=== PATIENT | female | born 1970 | race Caucasian/White ===

== ENCOUNTER 2022-11-28 09:17 | Emergency (ER) | payer MEDICAID, SELFPAY ==
[2022-11-28 09:50] VITALS: BP 143/76; PULSE 79; RESP 18; TEMP 36.8; O2SAT 98; BMI 37.9
[2022-11-28 10:03] VITALS: BP 160/74; PULSE 90; RESP 17; TEMP 36.8; O2SAT 96
--- NOTE | 2022-11-28 10:14 | ED_ITS ---
HPI - Female Genitourinary General Chief complaint: Urogenital-Female Stated complaint: Head Neck Vag Pain Time Seen by Provider: 11/28/22 10:03 Source: patient Mode of arrival: ambulatory History of Present Illness HPI Narrative: 52-year-old female the past medical history of cervical radiculopathy presenting to the ED complaining of suprapubic/pelvic pressure x 1 year with associated discomfort after urinating and hematuria. Denies dysuria, vaginal bleeding/discharge, nausea/vomiting, flank pain, fever MD elicited complaint: pelvic pain Related Data Previous Rx's Medication Instructions Recorded phenazopyridine 100 mg tablet 100 mg PO TID PRN pain 6 doses #6 11/28/22 (Pyridium) tabs Allergies Allergy/AdvReac Type Severity Reaction Status Date / Time No Known Allergies Allergy Verified 11/28/22 10:23 Review of Systems Review of Systems: Constitutional: No Fever, No Chills, No Fatigue, No Malaise ENT/Mouth: No Ear Pain, No sore throat, No Rhinorrhea, No Swallowing Difficulty Eyes: No Eye Pain, No Swelling, No Redness, N No Vision Changes Cardiovascular: No Chest Pain, No SOB, No Edema, No Palpitations Respiratory: No Cough, No Sputum, No Dyspnea Gastrointestinal: No Nausea, No Vomiting, No Diarrhea, No Constipation, + Abdominal pain Genitourinary: + Dysuria, No Urinary Frequency, + Hematuria, No Urinary Incontinence/retention, No Flank Pain Musculoskeletal: No joint pain, No Myalgias, No Joint Swelling Skin: No Skin Lesions, No rash Neuro: No Weakness, No Dizziness, No Headache Yes all other systems are reviewed and are negative Constitutional: Constitutional: Reports as per [facility] Past Medical History Attestation statement: The following information was validated with the patient. Social History Social History Advance Directives: No Advance Directives Information Provided: Yes Physical Exam Vital Signs: Vital Signs: Last Vital Signs Temp 98.2 F 11/28/22 10:03 Pulse 90 11/28/22 10:03 Resp 17 11/28/22 10:03 BP 160/74 H 11/28/22 10:03 Pulse Ox 96 11/28/22 10:03 O2 Del Method Room Air 11/28/22 10:03 BMI result Body Mass Index 37.9 Const: General: cooperative, healthy appearing and no acute distress Orientation/consciousness: patient oriented x3 Limitations: no limitations HEENT: Head: Yes normal to inspection and Yes atraumatic Ears: hearing grossly normal bilaterally General nose exam: Normal external nose present Face and sinus: Yes normal facial exam Eyes: General: appearance normal, both eyes and all related structures EOM: EOMs intact bilaterally Neck: Neck: Yes normal visual inspection and Yes no meningeal signs Resp: Effort & Inspection: normal respiratory effort and no respiratory distress Auscultation: clear to auscultation bilaterally Cardio: Rate: regular rate Heart sounds: S1 normal heart sound present and S2 normal heart sound present GI: Inspection: Yes normal to inspection Palpation (GI): Soft to palpation, Tenderness to palpation present (GI) suprapubicly; with no rebound tenderness, no guarding and not rigid : General: Yes no CVA tenderness Back/Spine/Pelvis: Back: no CVA tenderness Skin: Rashes: no rashes Wounds: no wounds Neuro: General: patient oriented x3, tone normal and no meningeal signs Gait exam (Neuro): Normal gait present Extrem: General: Yes normal to inspection Course Course Course Narrative: -1123--mild elevation in AST/ALT. Labs otherwise reassuring. UA negative Results discussed with patient including worrisome signs and symptoms and strict return precautions, and when to return to the emergency department. They verbalized understanding and feel safe for discharge at this time. Medical Decision Making Medical Decision Making [facility] Narrative: 52-year-old female the past medical history of cervical radiculopathy presenting to the ED complaining of suprapubic/pelvic pressure x 1 year with associated discomfort after urinating and hematuria. On exam vital signs stable, NAD, nontoxic appearing, abdomen soft mild suprapubic tenderness, no rebound or guarding, no CVAT. Concern for UTI vs cystitis vs ? Renal stone. Low suspicion for pyelo, appendicitis/diverticulitis or ovarian torsion/PID. Lower suspicion for STI Plan: Labs, UA Please refer to course for remaining clinical decision making, interpretation of labs/imaging results, and discussions with consultants and/or family members. Differential Diagnosis Differential Diagnoses: The differential diagnosis associated with the presentation includes As above Admission/Observation Consideration of admission/observation: Escalation of care including admission/observation considered Lab Data [facility] Lab Attestation statement: I reviewed the patient's lab results. 11/28/22 07:19 11/28/22 10:43 Labs: Lab Results 11/28/22 11/28/22 11/28/22 Range/Units 07:19 10:34 10:43 WBC 7.0 (4.8-10.8) X10*3/uL RBC 4.41 (4.20-5.50) X10*6/uL Hgb 13.5 (12.0-16.0) g/dl Hct 41.9 (37.0-47.0) % MCV 95.0 (80.0-98.0) fL MCH 30.6 (27.0-33.0) pg MCHC 32.2 (31.0-35.0) g/dl RDW 13.5 (11.0-16.0) % Plt Count 202 (160-400) X10*3/uL MPV 11.0 (9.4-12.3) fL Immature Gran % (Auto) 0.4 (0.0-0.4) % Neut % (Auto) 66.2 (45-73) % Lymph % (Auto) 27.0 (20-40) % Knox % (Auto) 5.6 (2-11) % Eos % (Auto) 0.4 (0-4) % Baso % (Auto) 0.4 (0-2) % Lymph # (Auto) 1.9 (1.2-4.9) X10*3/uL Knox # (Auto) 0.4 (0.1-1.2) X10*3/uL Eos # (Auto) 0.0 (0.0-0.4) X10*3/uL Baso # (Auto) 0.0 (0.0-0.2) X10*3/uL Abs Immat Gran (auto) 0.03 (0.00-0.03) X10*3/uL Absolute Neuts (auto) 4.6 (2.0-8.3) x10*3/uL Absolute Nucleated RBC 0.000 (0.0-0.012) X10*3/uL Nucleated RBC % (auto) 0.0 (0.0-0.2) /100WBC Sodium 142 (135-145) mmol/L Potassium 4.0 (3.3-5.1) mmol/L Chloride 108 (96-108) mmol/L Carbon Dioxide 28 (22-29) mmol/L Anion Gap 10 L (12-20) BUN 14 (9-16) mg/dL Creatinine 0.75 (0.5-1.4) mg/dL Estim Creat Clear Calc 104.6 Estimated GFR > 60 Random Glucose 108 (60-115) mg/dL Calcium 8.8 (8.4-10.2) mg/dL Total Bilirubin 0.5 (0.0-1.0) mg/dL Direct Bilirubin 0.1 (0.0-0.5) mg/dL AST 39 H (5-31) U/L ALT 43 H (0-31) U/L Alkaline Phosphatase 86 (39-117) U/L Total Protein 7.4 (6.5-8.0) g/dL Albumin 4.3 (3.5-5.0) g/dL Lipase 12 (8-78) U/L Urine Color Yellow Urine Appearance Clear Urine pH 6.5 (5.0-9.0) Ur Specific [place] 1.025 (1.005-1.025) Urine Protein Trace (Neg-Trace) mg/dL Urine Glucose (UA) Negative (Negative) mg/dL Urine Ketones Negative (Negative) mg/dL Urine Blood Negative (Negative) Urine Nitrite Negative (Negative) Ur Leukocyte Esterase Negative (Negative) Radiology Impression Discussion of test interpretation with radiology: I have reviewed the radiologist's reading. External Record Review External record reviewed: Inpatient record, Office record, Outpatient record, Prior outpatient labs, Prior outpatient radiology, Primary care record and Outside ED record Discharge Plan Discharge Clinical Impression: Suprapubic pain, Cystitis Patient Disposition: Home, Self-Care Instructions: Pelvic Pain (ED) Additional Instructions: Your blood work and urine are unremarkable. Her urine does not have any blood in it. Placed a close follow-up with her PCP If her symptoms persist or worsen, you have fever, inability to urine, back pain, nausea or vomiting return to the ED Delaney an?lisis de florence y orina no tienen nada especial. Mathis orina no tiene florence. Hizo un seguimiento cercano con mahtis PCP Si delaney s?ntomas persisten o empeoran, tiene fiebre, incapacidad para orinar, dolor de espalda, n?useas o v?mitos, regrese al servicio de urgencias. Prescriptions: New phenazopyridine [Pyridium] 100 mg tablet 100 mg PO TID PRN (Reason: pain) Qty: 6 0RF Referrals: [facility] [Provider Group] Wendy Martell MD [Primary Care Provider] - 5 days Interventions: ED Discharge Assessment Last Done: 11/28/22 11:33 Discharge Date/Time: 11/28/22 11:33 Print Language: Estonian
[2022-11-28 10:52] LABS: Appearance Urine Clear; Color Urine Yellow; Glucose Urine UA Negative (Negative); Leukocyte Esterase Urine Negative (Negative); Nitrite Urine Negative (Negative); PH 6.5 (5.0-9.0); Specific Gravity - Urine 1.025 (1.005-1.025); Urine Blood Negative (Negative); Urine Ketones Negative (Negative); Urine Protein Trace mg/dL (Neg-Trace)
[2022-11-28 10:52] LABS: MANUAL DIFF FLAG NO
[2022-11-28 10:55] LABS: Basophils Percent Auto 0.4 % (0-2); Eosinophils Percent Auto 0.4 % (0-4); Hematocrit 41.9 % (37.0-47.0); Hemoglobin 13.5 g/dl (12.0-16.0); Imm Gran Abs Auto 0.03 X10*3/uL (0.00-0.03); Imm Gran Pct Auto 0.4 % (0.0-0.4); Lymphocytes Absolute Auto 1.9 X10*3/uL (1.2-4.9); Mean Corpuscular HGB Conc 32.2 g/dl (31.0-35.0); Mean Corpuscular Hemoglobin 30.6 pg (27.0-33.0); Monocytes Absolute Auto 0.4 X10*3/uL (0.1-1.2); Monocytes Percent Auto 5.6 % (2-11); Neutrophils Absolute Auto 4.6 x10*3/uL (2.0-8.3); Neutrophils Percent Auto 66.2 % (45-73); Platelet Count 202 X10*3/uL (160-400); Red Blood Count 4.41 X10*6/uL (4.20-5.50); Red Cell Distribution Width 13.5 % (11.0-16.0)
[2022-11-28 11:09] LABS: Alanine Aminotransferase 43 U/L (0-31); Albumin Level 4.3 g/dL (3.5-5.0); Alkaline Phosphatase 86 U/L (39-117); Anion Gap 10 (12-20); Aspartate Amino Transferase 39 U/L (5-31); Bilirubin Direct 0.1 mg/dL (0.0-0.5); Bilirubin Total 0.5 mg/dL (0.0-1.0); Blood Urea Nitrogen 14 mg/dL (9-16); Calcium 8.8 mg/dL (8.4-10.2); Carbon Dioxide 28 mmol/L (22-29); Chloride 108 mmol/L (96-108); Creatinine Clr Calc Pharmacy 104.6; Estimated Glomerular Filt Rate > 60; Glucose Random 108 mg/dL (60-115); Lipase 12 U/L (8-78); Sodium 142 mmol/L (135-145); Total Protein 7.4 g/dL (6.5-8.0)
== END 2022-11-28 11:33 | disposition home or self-care (01) ==
PROVIDERS: Physician Assistant; Emergency Provider Emergency Medicine; PCP Internal Medicine
DX: R10.2 Pelvic and perineal pain (principal); N30.90 Cystitis, unspecified without hematuria
CPT/HCPCS: 36415; 80048; 80076; 81003; 83690; 85025; 99283

== ENCOUNTER 2022-12-21 10:52 | Outpatient (REF) | payer MEDICAID, SELFPAY ==
--- NOTE | ~2022-12-21 | XR_ITS ---
EXAMINATION: XR KNEE, LEFT CLINICAL INFORMATION: An COMPARISON: None available. TECHNIQUE: Four views of the left knee. FINDINGS: Bone alignment is normal. No fracture or dislocation. Arthritis at the medial femoral tibial and patellofemoral joints with joint space narrowing and osteophyte formation. Osteophyte at the quadriceps tendon insertion to the patella. No joint effusion. XR/XR knee LT 4V IMPRESSION: Degenerative changes.
--- NOTE | ~2022-12-21 | US_ITS ---
EXAMINATION: US PELVIS CLINICAL INFORMATION: Postmenopausal bleeding 52-year-old postmenopausal patient. COMPARISON: None available. TECHNIQUE: Ultrasound of the pelvis is performed using both transabdominal and transvaginal transducers along with Doppler. Transvaginal imaging is performed due to inadequate visualization transabdominally. FINDINGS: Uterus: The uterus is anteverted and measures 13.0 x 3.2 x 4.8 cm. The double wall endometrial thickness is 0.5 mm. The uterus is smooth in contour and has normal myometrial echogenicity. No visible fibroid. Adnexa: Bilateral ovaries are not visualized no large adnexal mass. US/US pelvic and transvaginal IMPRESSION: Mildly thickened endometrium in a postmenopausal patient. Consider further evaluation with tissue sampling.
--- NOTE | ~2022-12-21 | XR_ITS ---
EXAMINATION: XR FOOT, LEFT CLINICAL INFORMATION: Pain COMPARISON: None available. TECHNIQUE: AP, lateral, and oblique views of the left foot. FINDINGS: Calcaneal spurs. The bones and soft tissues are otherwise normal. No fracture. Alignment is anatomic. Joint spaces are maintained. XR/XR foot LT min 3V IMPRESSION: Calcaneal spurs.
== END 2022-12-21 10:53 | disposition home or self-care (01) ==
LOC: HO.US 10:52
PROVIDERS: PCP Internal Medicine; Visit Provider Advanced Practice Midwife
DX: M25.562 Pain in left knee (principal); M79.672 Pain in left foot; R10.2 Pelvic and perineal pain; N95.0 Postmenopausal bleeding
CPT/HCPCS: 73564; 73630; 76830; 76856

== ENCOUNTER 2023-01-21 14:17 | Outpatient (REF) | payer MEDICAID, SELFPAY ==
--- NOTE | ~2023-01-21 | MM_ITS ---
EXAMINATION: MM SCREENING DIGITAL BREAST TOMOSYNTHESIS, BILATERAL CLINICAL INFORMATION: Screening. Asymptomatic. Prior outside mammography from [place] no longer available. Age 52. No known family history breast cancer. The lifetime risk of breast cancer based on the Tyrer-Cuzick Model is 6%. COMPARISON: None (current study represents new baseline exam). TECHNIQUE: Digital breast tomosynthesis is performed in both the craniocaudal and mediolateral oblique views along with computer-aided detection (CAD). Synthesized 2D images are generated from the tomosynthesis. FINDINGS: There are scattered areas of fibroglandular density (ACR BI-RADS breast composition Category b). There are no significant masses, abnormal calcifications, or other abnormalities. No architectural abnormality. The axilla and skin contours are unremarkable. MM/MM tomosynthesis screening BI IMPRESSION: No mammographic evidence of malignancy. ASSESSMENT: BI-RADS 1: Negative RECOMMENDATION: Routine annual mammography screening. This patient's information was entered into a reminder system with a target due date for their next mammogram.
== END 2023-01-21 14:18 | disposition home or self-care (01) ==
LOC: HO.MAMMO 14:17
PROVIDERS: PCP Internal Medicine; Visit Provider Advanced Practice Midwife
DX: Z12.31 Encounter for screening mammogram for malignant neoplasm of breast (principal)
CPT/HCPCS: 77063; 77067

== ENCOUNTER 2023-01-31 11:01 | Outpatient (REF) | payer MEDICAID, SELFPAY | END 2023-01-31 11:02 | disposition home or self-care (01) | LOC: HO.LNP 11:01 | PROVIDERS: PCP Internal Medicine; Visit Provider Obstetrics & Gynecology | DX: R87.612 Low grade squamous intraepithelial lesion on cytologic smear of cervix (LGSIL) (principal); N95.0 Postmenopausal bleeding | CPT/HCPCS: 57454; 58100; 81025; 88305; 99212 ==

== ENCOUNTER 2023-02-21 12:41 | Outpatient (REF) | payer MEDICAID, SELFPAY ==
--- NOTE | ~2023-02-21 | US_ITS ---
EXAMINATION: US PELVIS CLINICAL INFORMATION: Postmenopausal bleeding. COMPARISON: 12/21/2022 TECHNIQUE: Ultrasound of the pelvis is performed using both transabdominal and transvaginal transducers along with Doppler. Transvaginal imaging is performed due to inadequate visualization transabdominally. FINDINGS: Uterus: The uterus is retroverted and measures 11.2 x 3.5 x 5.1 cm. No visible fibroid. The double wall endometrial thickness is 6 mm. Adnexa: Neither ovary was visualized. There is no pelvic ascites or fluid collection. US/US pelvic and transvaginal IMPRESSION: Thickened endometrium given patient's postmenopausal status. Advise consultation with gynecology.
== END 2023-02-21 12:42 | disposition home or self-care (01) ==
LOC: HO.US 12:41
PROVIDERS: PCP Internal Medicine; Visit Provider Obstetrics & Gynecology
DX: N95.0 Postmenopausal bleeding (principal)
CPT/HCPCS: 76830; 76856

== ENCOUNTER 2023-03-07 14:53 | Outpatient (AMB) | payer MEDICAID, SELFPAY ==
[2023-03-07 14:57] VITALS: BP 122/82; BMI 38.1
--- NOTE | 2023-03-07 14:57 | A.OFFVIS_ITS ---
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 Ultrasound showed the following: Uterus: The uterus is retroverted and measures 11.2 x 3.5 x 5.1 cm.? No visible fibroid. The double wall endometrial thickness is 6 mm.? Adnexa: Neither ovary was visualized.? There is no pelvic ascites or fluid collection. The pathology showed the follow-up: A.? Endocervix, curettage:? Squamous mucosa with few atypical cells suspicious for low-grade squamous intraepithelial lesion (mild dysplasia, SHADE 1); no endocervical glandular component present.? B. Endometrium, biopsy:? Predominantly benign endocervical glandular mucosa and squamous mucosa (negative for dysplasia) with scant strips of benign inactive endometrium; no atypia or carcinoma. [facility] Surgical History Hx of section Hx of tubal ligation Female Reproductive History Menstrual Age of Menarche: 12 Review of Systems Const All systems reviewed & are unremarkable except as noted in HPI and below Reports as per HPI and Reports no additional complaints GI Reports no additional complaints Reports no additional complaints Physical Exam Vital Signs: Last Vital Signs BP 122/82 03/07/23 14:57 BMI result Body Mass Index 38.1 Assessment & Plan Assessment & Plan (1) Postmenopausal bleeding: Code(s): N95.0 - Postmenopausal bleeding Plan: Discussed with the patient the results of the endometrial biopsy showing scant strips of inactive endometrium. Discussed with the patient the sensitivity, specificity, positive and negative predictive value, of endometrial biopsy in detecting endometrial pathology including but not limited to endometrial hyperplasia, cancer and other pathology; in addition discussed the patient the tissues are scan and this might lower the sensitivity and negative predictive value in detecting endometrial pathology including carcinoma, offer the patient repeat EMB versus hysteroscopy D&C possible polypectomy, all pros and cons risks benefits were discussed with the patient, the patient decided to think about it and get back to us instructed the patient to call in case is vaginal bleeding bleeding recurs, the next step will be to proceed with a diagnostic hysteroscopy/D&C for further endometrial sampling evaluation to rule out endometrial pathology. All questions answered and the patient verbalized underst anding and agreed with the plan. 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 Discussed with the patient the sensitivity specificity, positive and negative predictive value in detecting cervical cancer in addition discussed the regression, persistence and progression rates. Recommended co-testing in 12 months, if cytology and or HPV are abnormal will proceed was colposcopy biopsy and endocervical curettage, if lesions gets worse or stays persistent for 2 years will proceed with loop electric excision procedure. Instructions given to the patient to schedule a co test appointment in 1 year. All questions answered the patient verbalized understanding. Coding Level of Care Code Est Pt Level 3 (34964) Diagnoses Postmenopausal bleeding N95.0 LGSIL on Pap smear of cervix R87.612
== END 2023-03-07 15:13 | disposition home or self-care (01) ==
LOC: HO.HWS 14:53
PROVIDERS: PCP Internal Medicine; Visit Provider Obstetrics & Gynecology
DX: N95.0 Postmenopausal bleeding (principal); R87.612 Low grade squamous intraepithelial lesion on cytologic smear of cervix (LGSIL)
CPT/HCPCS: 99213

== ENCOUNTER → 2023-03-07 14:53 | Outpatient (BNVA) | payer MEDICAID, SELFPAY | PROVIDERS: PCP Internal Medicine; Visit Provider Obstetrics & Gynecology | DX: N95.0 Postmenopausal bleeding (principal); R87.612 Low grade squamous intraepithelial lesion on cytologic smear of cervix (LGSIL) | CPT/HCPCS: 99212 ==

== ENCOUNTER 2023-11-04 07:53 | Emergency (ER) | payer MEDICAID, SELFPAY ==
--- NOTE | ~2023-11-04 | XR_ITS ---
EXAMINATION: XR KNEE, LEFT CLINICAL INFORMATION: Left knee pain COMPARISON: Left knee 12/21/2022 TECHNIQUE: Two views of the left knee. FINDINGS: Again seen are tricompartmental degenerative changes most marked in the medial and patellofemoral compartments with narrowing. Some tibial plateau osteophytes are present both medially and laterally. No joint effusion or fracture is seen. XR/XR knee LT 2V IMPRESSION: Tricompartmental degenerative changes most marked in the medial compartment.
[2023-11-04 08:30] VITALS: BP 174/90; PULSE 85; RESP 16; TEMP 36.6; O2SAT 95; BMI 39.4
--- NOTE | 2023-11-04 08:58 | PC.NURSE ---
moved into [facility] [place] [facility] [place] . walks well to room w/o distress.
--- NOTE | 2023-11-04 10:03 | ED.GENADULT ---
HPI - General Adult General Chief complaint: General Medical Stated complaint: head body neck pain Time Seen by Provider: 11/04/23 09:34 Source: patient Mode of arrival: ambulatory Limitations: no limitations History of Present Illness HPI narrative: This is a 53-year-old female history of obesity, chronic pelvic pain presenting to the emergency department with complaints of neck pain that is worse on the left side, muscle tightness in her upper back, diffuse headache for the past 2 weeks. Patient reports that she has however had a headache intermittently for the past 3 years and also reported to triage some pelvic discomfort she reports this has been going on for 2 years she was followed by OBGYN she had biopsies done which were unremarkable, this is a chronic complaint that is currently being followed the main reason for visit today is the neck pain. Also reporting some left knee pain status post fall a few weeks ago. She reports she fell onto her left knee. No head strike or loss of consciousness. She states since the fall she has been having some knee swelling. She has been able to walk after the fall. No numbness, tingling, fevers, chills, chest pain, shortness of breath, nausea, vomiting, vision changes, changes in bowel habitsm numbness, tinglign, dizziness or weakness. NIH stroke scale 0 Related Data Home Medications Medication Instructions Recorded Confirmed gabapentin 100 mg capsule 300 mg PO Q8H 01/31/23 sulfamethoxazole 200 5 ml PO DAILY 01/31/23 mg-trimethoprim 40 mg/5 mL oral suspension Previous Rx's Medication Instructions Recorded phenazopyridine 100 mg tablet 100 mg PO TID PRN pain 6 doses #6 11/28/22 (Pyridium) tabs cyclobenzaprine 10 mg tablet 10 mg PO BEDTIME PRN muscle spasm 11/04/23 #7 tabs ketorolac 10 mg tablet 10 mg PO TID PRN pain 5 days #15 11/04/23 tabs Allergies Allergy/AdvReac Type Severity Reaction Status Date / Time No Known Allergies Allergy Verified 11/04/23 08:29 Review of Systems Review of Systems: Yes all other systems are reviewed and are negative [facility] Past Medical History Attestation statement: The following information was validated with the patient. Source: old records reviewed and nursing notes reviewed Surgical History Hx of tubal ligation Hx of section Social History Social History Advance Directives: No Advance Directives Information Provided: No Physical Exam ED Vital Signs: Vital Signs - 24 hr 11/04/23 08:30 Temperature 97.8 F Pulse Rate 85 Respiratory Rate 16 Blood Pressure 174/90 H Pulse Oximetry 95 Oxygen Delivery Method Room Air BMI result Body Mass Index 39.4 vss Appearance: Alert.? Oriented X3.? No acute distress.? Head: Normocephalic, atraumatic, no step-offs or deformities Eyes: Pupils equal, round and reactive to light.? Neck: Normal inspection.? Neck supple.? + b/l cervical paraspnious muscle spasms. and b/l trapezius TTP. No deformities. CVS: Normal heart rate and rhythm.? Pulses normal.? Respiratory: No respiratory distress.? Breath sounds normal.? Abdomen: Soft and nontender.? Skin: Skin warm and dry.? Normal skin color.? Normal skin turgor.? Extremities: No lower extremity edema.? No calf ttp/ negative homa b/l. 5/5 strength to bilateral upper and lower extremities. Full rom to b/l knees, normal sensation distally, capillary refill < 2 seconds to b/l LE. Ambulatoryw/ steady gait. 2+ popliteal, dp, at, pt pulses equal and b/l. Back: No midline tenderness, no C-spine tenderness, full range of motion, no CVA tenderness bilaterally Neuro: Oriented X 3.? No motor deficit.? No sensory deficit. CN 2-12 intact Course Reevaluation(s) Reevaluation #1: X-ray showing signs of arthritis. No acute fracture dislocations. Patient feeling better. Patient to be discharged home with same. Educated patient on diagnosis and treatment plan, answered all question, patient verbalizes understanding. At this time patient will be discharged home, advised to return with new or worsening symptoms. Educated on worrisome signs and symptoms and when to return. At this time I feel comfortable discharge home. Time: 11:16 Medications Administered Discontinued Medications Generic Name Dose Route Start Last Admin Trade Name Freq PRN Reason Stop Dose Admin Ketorolac Tromethamine 30 mg 11/04/23 09:45 11/04/23 10:46 Ketorolac Tromethamine 30 Mg/Ml Vial IM 11/04/23 09:46 30 mg ONCE ONE Administration Lidocaine 1 patch 11/04/23 10:18 11/04/23 10:46 Lidocaine 4 % Patch Adh..Patch TRANSDERMA 11/04/23 10:19 1 patch ONCE ONE Administration Protocol Medical Decision Making Medical Decision Making [facility] Narrative: 1006 53 year old female PE + b/l cervical paraspnious muscle spasms. and b/l trapezius TTP. No deformities. No lower extremity edema.? No calf ttp/ negative homa b/l. 5/5 strength to bilateral upper and lower extremities. Full rom to b/l knees, normal sensation distally, capillary refill < 2 seconds to b/l LE. Ambulatoryw/ steady gait. 2+ popliteal, dp, at, pt pulses equal and b/l. Concerns for contusion of left knee. Unlikely arterial or venous occlusion. Unlikely fracture dislocation. No signs of neurovascular compromise or threat to limb. Neck pain concerning for musculoskeletal pain. I do not suspect meningitis, encephalitis, cervical myelopathy, cord compression, fracture, dislocation or traumatic subluxation. Unlikely intracranial hemorrhage, stroke posterior stroke. No abdominal pain on palpation unlikely intra-abdominal etiology or pelvic problem. Will rule out UTI. Plan- labs, will medicated w/ Toradol, Lidoderm. , UA Differential Diagnosis Differential Diagnoses: The differential diagnosis associated with the presentation includes Concerns for contusion of left knee. Unlikely arterial or venous occlusion. Unlikely fracture dislocation. No signs of neurovascular compromise or threat to limb. Neck pain concerning for musculoskeletal pain. I do not suspect meningitis, encephalitis, cervical myelopathy, cord compression, fracture, dislocation or traumatic subluxation. Unlikely intracranial hemorrhage, stroke posterior stroke. No abdominal pain on palpation unlikely intra-abdominal etiology or pelvic problem. Will rule out UTI. Admission/Observation Consideration of admission/observation: Escalation of care including admission/observation considered Unlikely Lab Data [facility] Lab Attestation statement: I reviewed the patient's lab results. Labs: Lab Results 11/04/23 Range/Units 10:51 Urine Color Yellow Urine Appearance Clear Urine pH 5.5 (5.0-9.0) Ur Specific [place] 1.025 (1.005-1.025) Urine Protein Negative (Neg-Trace) mg/dL Urine Glucose (UA) Negative (Negative) mg/dL Urine Ketones Trace (Negative) mg/dL Urine Blood Negative (Negative) Urine Nitrite Negative (Negative) Ur Leukocyte Esterase Negative (Negative) Independent Interpretation I performed an independent interpretation of an: Plain X-Ray Radiology Impression Discussion of test interpretation with radiology: I have reviewed the radiologist's reading. External Record Review External record reviewed: Inpatient record, Office record, Outpatient record, Prior outpatient labs, Prior outpatient radiology, Primary care record and Outside ED record Chronic Conditions Patient?s care impacted by: Other Critical Care Time Critical Care Time Critical Care Time: No Discharge Plan Discharge Clinical Impression: Cervical paraspinous muscle spasm, Arthritis of knee Patient Disposition: Home, Self-Care Instructions: Muscle Spasm (ED) Additional Instructions: Take your medications as prescribed. If you were prescribed antibiotics today, it is important that you take your medication to their entirety, do not skip any doses, do not finish them early. Follow-up with your primary care provider this week. Return to the emergency department with new or worsening symptoms. Such as fevers, chills, chest pain, shortness of breath, nausea, vomiting, dizziness, headache, vision changes, lethargy In case of emergency call 911 Toradol has been sent to your pharmacy, you tolerated this well in the department. Please take this as prescribed do not take this with ibuprofen, or other NSAIDs, do not mix this with alcohol. Side effects of this medication including increased risk for bleeding and possible kidney injury. Cyclobenzaprine is a muscle relaxer it is strong and can make you drowsy. Do not take with sedatives or any other muscle relaxers or alcohol. Do not drive or operate machinery while taking this. Do not share this medication with anyone. XR/XR knee LT 2V IMPRESSION: Tricompartmental degenerative changes most marked in the medial compartment. Prescriptions: New cyclobenzaprine 10 mg tablet 10 mg PO BEDTIME PRN (Reason: muscle spasm) Qty: 7 0RF ketorolac 10 mg tablet 10 mg PO TID PRN (Reason: pain) 5 Days Qty: 15 0RF No Action phenazopyridine [Pyridium] 100 mg tablet 100 mg PO TID PRN (Reason: pain) Qty: 6 0RF sulfamethoxazole-trimethoprim 200-40 mg/5 mL suspension 5 ml PO DAILY gabapentin 100 mg capsule 300 mg PO Q8H Referrals: Wendy Martell MD [Primary Care Provider] - 2 days Stand Alone Forms: Work/School Release
--- NOTE | 2023-11-04 10:43 | PC.NURSE ---
attempted to pull meds from pyxis- not showing up - called court pharmacist to inquire
[2023-11-04] MEDS: Ketorolac Tromethamine 30 MG/ML VIAL IM (10:46)
[2023-11-04] MEDS: Lidocaine 4 % Patch ADH..PATCH 1 PATCH TRANSDERMA (10:46)
[2023-11-04 11:08] LABS: Appearance Urine Clear; Color Urine Yellow; Glucose Urine UA Negative (Negative); Leukocyte Esterase Urine Negative (Negative); Nitrite Urine Negative (Negative); PH 5.5 (5.0-9.0); Specific Gravity - Urine 1.025 (1.005-1.025); Urine Blood Negative (Negative); Urine Ketones Trace mg/dL (Negative); Urine Protein Negative (Neg-Trace)
== END 2023-11-04 12:20 | disposition home or self-care (01) ==
PROVIDERS: Physician Assistant; Emergency Provider Emergency Medicine; PCP Internal Medicine
DX: M62.830 Muscle spasm of back (principal); M17.12 Unilateral primary osteoarthritis, left knee
CPT/HCPCS: 73560; 81003; 96372; 99283; 99284; J1885

== ENCOUNTER 2023-12-30 11:08 | Outpatient (REF) | payer MEDICAID, SELFPAY ==
[2023-12-30 13:17] LABS: MANUAL DIFF FLAG NO
[2023-12-30 13:55] LABS: Basophils Percent Auto 0.3 % (0-2); Eosinophils Percent Auto 0.6 % (0-4); Hematocrit 45.1 % (37.0-47.0); Hemoglobin 14.1 g/dl (12.0-16.0); Imm Gran Abs Auto 0.02 X10*3/uL (0.00-0.03); Imm Gran Pct Auto 0.3 % (0.0-0.4); Lymphocytes Absolute Auto 2.1 X10*3/uL (1.2-4.9); Lymphocytes Percent Auto 28.6 % (20-40); Mean Corpuscular HGB Conc 31.3 g/dl (31.0-35.0); Mean Corpuscular Hemoglobin 29.7 pg (27.0-33.0); Mean Corpuscular Volume 95.1 fL (80.0-98.0); Mean Platelet Volume 11.7 fL (9.4-12.3); Monocytes Absolute Auto 0.4 X10*3/uL (0.1-1.2); Monocytes Percent Auto 5.4 % (2-11); Neutrophils Absolute Auto 4.6 x10*3/uL (2.0-8.3); Neutrophils Percent Auto 64.8 % (45-73); Platelet Count 192 X10*3/uL (160-400); Red Blood Count 4.74 X10*6/uL (4.20-5.50); Red Cell Distribution Width 13.8 % (11.0-16.0); White Blood Count 7.2 X10*3/uL (4.8-10.8)
[2023-12-30 14:01] LABS: Estimated Average Glucose 117 mg/dL; Hemoglobin A1c % 5.7 % (<6.0)
[2023-12-30 14:05] LABS: Rheumatoid Factor < 13.0 IU/mL (<15.0)
[2023-12-30 14:20] LABS: Alanine Aminotransferase 42 U/L (0-31); Albumin Level 4.3 g/dL (3.5-5.0); Alkaline Phosphatase 78 U/L (39-117); Anion Gap 16 (12-20); Aspartate Amino Transferase 52 U/L (5-31); Bilirubin Total 0.3 mg/dL (0.0-1.0); Blood Urea Nitrogen 18 mg/dL (9-16); C Reactive Protein 1.97 mg/dL (< or = 0.50); Calcium 9.8 mg/dL (8.4-10.2); Carbon Dioxide 25 mmol/L (22-29); Chloride 105 mmol/L (96-108); Estimated Glomerular Filt Rate > 60; Glucose Random 89 mg/dL (60-115); Potassium 5.1 mmol/L (3.3-5.1); Sodium 141 mmol/L (135-145); Total Protein 8.8 g/dL (6.5-8.0)
[2023-12-30 14:25] LABS: TSH reflex Free T4 2.93 uIU/mL (0.32-4.0)
[2023-12-30 14:29] LABS: Erythrocyte Sedimentation Rate 33 MM/HR (0-20)
[2023-12-30 14:33] LABS: Folate 12.5 ng/mL (> or = 4.0); Vitamin B12 641 pg/mL (200-900)
[2024-01-01 15:48] LABS: Cyclic Citrullinated Peptide <16 UNITS
[2024-01-03 20:39] LABS: Anti Nuclear Antibody Screen NEGATIVE (NEGATIVE)
== END 2023-12-30 11:09 | disposition home or self-care (01) ==
LOC: HO.HHCL 11:08
PROVIDERS: Visit Provider Emergency Medicine
DX: E11.65 Type 2 diabetes mellitus with hyperglycemia (principal); M25.50 Pain in unspecified joint; E03.9 Hypothyroidism, unspecified
CPT/HCPCS: 36415; 80053; 82607; 82746; 83036; 84443; 85025; 85652; 86038; 86140; 86200; 86431

== ENCOUNTER 2024-01-08 08:27 | Outpatient (REF) | payer MEDICAID, SELFPAY ==
[2024-01-08 14:57] LABS: Bacterial Vaginosis PCR NEGATIVE (Negative); Candida Group PCR NOT DETECTED (Not Detect); Candida glab krusei PCR NOT DETECTED (Not Detect); Trichomonas vaginalis PCR NOT DETECTED (Not Detect)
[2024-01-08 17:28] LABS: CT PCR NOT DETECTED (Not Detect.); NG PCR NOT DETECTED (Not Detect.)
[2024-01-20 22:48] LABS: HPV mRNA E6/E7 rflx Detected (Not Detected)
[2024-01-20 22:52] LABS: HPV 16 RNA NOT DETECTED (NOT DETECTED)
== END 2024-01-08 08:28 | disposition home or self-care (01) ==
LOC: HO.LNP 08:27
PROVIDERS: PCP Internal Medicine; Visit Provider Obstetrics & Gynecology
DX: Z12.4 Encounter for screening for malignant neoplasm of cervix (principal); Z11.51 Encounter for screening for human papillomavirus (HPV); R10.2 Pelvic and perineal pain; N95.0 Postmenopausal bleeding; R31.29 Other microscopic hematuria
CPT/HCPCS: 0352U; 0353U; 81002; 87086; 87624; 87625; 88142; 99212

== ENCOUNTER 2024-01-08 08:27 | Outpatient (AMB) | payer MEDICAID, SELFPAY ==
[2024-01-08 08:41] VITALS: BMI 39.4
--- NOTE | 2024-01-08 08:41 | A.OFFVIS_ITS ---
Vital Signs 01/08/24 08:41 Height 5 ft 4 in Weight 229 lb 4.492 oz BMI 39.4 Intake Visit Reasons: PMB Allergies No Known Allergies Allergy (Verified 11/04/23 08:29) HPI Comments Details: Presenting complaining of multiple episodes of vaginal bleeding over the last year associated with pelvic pain, no other associated symptoms no urinary or GI symptoms no vaginal discharge, nausea or vomiting or fever or chills. The patient moved to [place] have discussed her vaginal meeting with her PCP and did not contact us nor she was referred to see a local OBGYN in [place] and therefore, the patient decided to come in for further evaluation. The patient was seen for postmenopausal bleeding and LGSIL HPV E6 E7 positive in 02/08 were colposcopy was negative, ECC was done, the pathology showed the following: A. Endocervix, curettage: Squamous mucosa with few atypical cells suspicious for low-grade squamous intraepithelial lesion (mild dysplasia, SHADE 1); no endocervical glandular component present. B. Endometrium, biopsy: Predominantly benign endocervical glandular mucosa and squamous mucosa (negative for dysplasia) with scant strips of benign inactive endometrium; no atypia or carcinoma Pelvic ultrasound was done in 03/10 and showed endometrial thickness of 6 mm In addition, the patient is complaining of bilateral lower pelvic pain associated with vaginal discharge, no other associated urinary GI or other symptoms Last Pap smear LGSIL/E6 E7 positive in 12/09 Last mammogram was BI-RADS 1 in 02/08 [facility] Medical History LGSIL on Pap smear of cervix Surgical History Hx of tubal ligation Hx of section Female Reproductive History Menstrual Age of Menarche: 12 Review of Systems Const All systems reviewed & are unremarkable except as noted in HPI and below Card Reports as per HPI Resp Reports as per HPI GI Reports as per HPI and Reports no additional complaints Reports as per HPI Physical Exam Vital Signs: BMI result Body Mass Index 39.4 Const General: cooperative, healthy appearing and comfortable Chest Chest palpation & inspection: normal inspection of the chest and normal p alpation of entire chest wall Breast/axilla inspection: normal inspection of the breasts and normal inspection of the axillae Breast/axilla palpation: normal palpation of the breasts, normal palpation of the axillae and no axillary lymphadenopathy Resp Effort & Inspection: normal respiratory effort Auscultation: clear to auscultation bilaterally Percussion: percussion normal Cardio Palpation: normal PMI Rate: regular rate Rhythm: regular rhythm Heart sounds: no murmurs and no rubs Peripheral pulses: Peripheral pulses 2+ throughout GI Inspection: Yes normal to inspection Palpation (GI): Soft to palpation, nontender, no guarding, not rigid and No hepatosplenomegaly present Percussion: Yes normal to percussion Auscultation: normal bowel sounds Rectal Exam - Female: deferred General: Yes bladder normal to palpation External Female Exam: No lesion Speculum Exam - Vagina: normal appearance of the vagina, normal palpation, normal vaginal discharge and not erythematous Speculum Exam - Cervix: normal appearance of the cervix and normal palpation Bimanual exam- vagina & uterus: normal bimanual exam, normal palpation, uterine size normal, bladder normal to palpation, consistency normal and normal palpation Bimanual Exam- Adnexa, other: normal adnexae, no masses and no tenderness Assessment & Plan Assessment & Plan (1) Pelvic pain: Code(s): R10.2 - Pelvic and perineal pain Category: Medical Plan: Urine dip showed microscopic hematuria. GC and chlamydia taken and pelvic ultrasound ordered. Discussed with the patient the differential diagnosis of pelvic pain including but not limited to adnexal, uterine masses, pelvic infections (PID), GI the (Irritable bowel syndrome, diverticulitis, others), musculoskeletal, myofascial pain abdominal wall , adhesions, endometriosis, psychological and others causes. Will check results and treat accordingly. All questions answered, the patient verbalized understanding. Instructed the patient to schedule follow-up appointment in 2 weeks (2) Microscopic hematuria: Code(s): R31.29 - Other microscopic hematuria Category: Medical Plan: Urine dip showed microscopic hematuria, urine culture sent. Will repeat urine dip in 2 weeks. Discussed with the patient the possible causes of microscopic hematuria including but not limited to: interstitial cystitis, polyps, stones, masses, urethral inflammatory processes and others. If Urine Culture is negative and repeat urine dip in 2 weeks shows persistent microscopic hematuria, will proceed with CT abdomen/pelvis and urology referral. Instructions given the patient to schedule a 2 week urine dip follow-up appointment. All questions answered and the patient verbalized understanding. (3) LGSIL on Pap smear of cervix: Comment: 12/09 LGSIL HPV E6/E7 positive, colpo negative, ECC negative Code(s): R87.612 - Low grade squamous intraepithelial lesion on cytologic smear of cervix (LGSIL) Category: Medical Plan: Co testing done. Instructions given the patient to schedule a 1 year repeat annual exam appointment. (4) Vaginal discharge: Code(s): N89.8 - Other specified noninflammatory disorders of vagina Category: Medical Plan: GC/CT with BV panel collected. Since the patient does not have any vulvar vaginal itching nor foul odor, will check the results and treat accordingly. (5) Postmenopausal bleeding: Code(s): N95.0 - Postmenopausal bleeding Category: Medical Plan: Discussed with the patient the differential diagnosis of post menopausal bleeding with normal pelvic exam including but not limited to, endometrial hyp erplasia, cancer, polyps and other causes; co testing done, recommended ultrasound and schedule hysteroscopy D&C possible polypectomy/myomectomy. Instructions given the patient to schedule a 2 week preop visit All questions answered, the patient verbalized understanding and agreed with the plan. Orders: Orders US pelvic and transvaginal Today N95.0 - Postmenopausal bleeding, R10.2 - Pelvic and perineal pain Coding Level of Care Code Est Pt Level 3 (68281) Diagnoses Pelvic pain R10.2 Microscopic hematuria R31.29 LGSIL on Pap smear of cervix R87.612 Vaginal discharge N89.8 Postmenopausal bleeding N95.0
== END 2024-01-08 09:24 | disposition home or self-care (01) ==
LOC: HO.HWS 08:27
PROVIDERS: PCP Internal Medicine; Referring Provider Internal Medicine; Visit Provider Obstetrics & Gynecology
DX: R10.2 Pelvic and perineal pain (principal); R31.29 Other microscopic hematuria; R87.612 Low grade squamous intraepithelial lesion on cytologic smear of cervix (LGSIL); N89.8 Other specified noninflammatory disorders of vagina; N95.0 Postmenopausal bleeding
CPT/HCPCS: 99213

== ENCOUNTER 2024-01-15 10:33 | Outpatient (REF) | payer MEDICAID, SELFPAY ==
--- NOTE | ~2024-01-15 | US_ITS ---
EXAMINATION: US PELVIS CLINICAL INFORMATION: Postmenopausal bleeding. COMPARISON: Pelvic ultrasound of 02/21/2023. TECHNIQUE: Ultrasound of the pelvis is performed using both transabdominal and transvaginal transducers along with Doppler. Transvaginal imaging is performed due to inadequate visualization transabdominally. Severely limited visualization due to bowel gas and body habitus. FINDINGS: Uterus is anteverted, retroflexed and measures 11.1 x 4.1 x 4.9 cm. No discrete fibroid appreciated. Double wall endometrial thickness is 7 mm. Bilateral ovaries were not visualized. No significant free fluid. Severely limited visualization due to bowel gas and body habitus. US/US pelvic and transvaginal IMPRESSION: 1. Endometrial thickness 7 mm is abnormal and suspicious in this patient with postmenopausal bleeding. Gynecologic consultation and possible biopsy recommended. 2. Bilateral ovaries were not visualized. 3. Severely limited visualization due to bowel gas and body habitus.
== END 2024-01-15 10:34 | disposition home or self-care (01) ==
LOC: HO.US 10:33
PROVIDERS: PCP Student in an Organized Health Care Education/Training Program; Visit Provider Obstetrics & Gynecology
DX: R10.2 Pelvic and perineal pain (principal); N95.0 Postmenopausal bleeding
CPT/HCPCS: 76830; 76856

== ENCOUNTER 2024-01-20 14:28 | Outpatient (AMB) | payer MEDICAID, SELFPAY ==
--- NOTE | 2024-01-20 14:47 | A.OFFVIS_ITS ---
Vital Signs 01/20/24 14:52 Height 5 ft 4 in Weight 229 lb 4.492 oz BMI 39.4 BP 118/74 Intake Visit Reasons: pre op Cancer Registry Manager Required: Yes Cancer Registry Manager Language: Industrial Machine Assembler Name: Trista CHASE Information Interpreted: non-clinical & clinical Digital Media Director: Digital Media Director Present Accompanied by: Self / Same As Patient Allergies No Known Allergies Allergy (Verified 01/20/24 14:54) Is last menstrual period known: Yes Last menstrual period: 06/16/20 Post menopausal: Yes Patient : No Do you need a note to return to daycare/school/sports/work: Yes (for surgery on saturday) HPI Comments Details: Presenting to discuss hysteroscopy D&C possible polypectomy/myomectomy. Pelvic ultrasound reports is still pending [facility] Medical History LGSIL on Pap smear of cervix Surgical History Hx of tubal ligation Hx of section Female Reproductive History Menstrual Age of Menarche: 12 Date of last menstrual period: 06/16/20 Total pregnancies: 2 Full term: 2 Review of Systems Card Reports as per HPI and Reports no additional complaints Resp Reports as per HPI and Reports no additional complaints GI Reports as per HPI and Reports no additional complaints Reports as per HPI Physical Exam Vital Signs: Last Vital Signs BP 118/74 01/20/24 14:52 BMI result Body Mass Index 39.4 Const General: cooperative, healthy appearing and comfortable Resp Effort & Inspection: normal respiratory effort Auscultation: clear to auscultation bilaterally Percussion: percussion normal Cardio Palpation: normal PMI Rate: regular rate Rhythm: regular rhythm Heart sounds: no murmurs and no rubs Peripheral pulses: Peripheral pulses 2+ throughout GI Inspection: Yes normal to inspection Palpation (GI): Soft to palpation, nontender, no guarding, not rigid and No hepatosplenomegaly present Percussion: Yes normal to percussion Auscultation: normal bowel sounds Rectal Exam - Female: deferred Assessment & Plan Assessment & Plan (1) Postmenopausal bleeding: Code(s): N95.0 - Postmenopausal bleeding Category: Medical Plan: Will schedule hysteroscopy D&C possible polypectomy/myomectomy. Discussed with the patient the procedure , all benefits and risks including but not limited to inability to complete the procedure , insufficient endometrial tissue for a complete evaluation of the endometrial cavity , bleeding, infection, possible need for blood transfusion with all its risk ( HIV,syphilis, Hepatitis, anaphylaxis shock, others..), injury to bladder, rectum, possible need for laparoscopy/laparotomy or hysterectomy. The patient verbalized understanding and signed the consent. Instructions given the patient to stay NPO after midnight the day prior to the procedure and to take only the specific medication (s) discussed the morning of the surgical procedure and to schedule a 2 week postoperative appointment Coding Level of Care Code Est Pt Level 3 (90832) Diagnoses Postmenopausal bleeding N95.0
[2024-01-20 14:52] VITALS: BP 118/74; BMI 39.4
== END 2024-01-20 15:09 | disposition home or self-care (01) ==
LOC: HO.HWS 14:28
PROVIDERS: PCP Student in an Organized Health Care Education/Training Program; Referring Provider Student in an Organized Health Care Education/Training Program; Visit Provider Obstetrics & Gynecology
DX: N95.0 Postmenopausal bleeding (principal)
CPT/HCPCS: 99213

== ENCOUNTER → 2024-01-20 14:28 | Outpatient (BNVA) | payer MEDICAID, SELFPAY | PROVIDERS: PCP Student in an Organized Health Care Education/Training Program; Visit Provider Obstetrics & Gynecology | DX: Z01.818 Encounter for other preprocedural examination (principal); N95.0 Postmenopausal bleeding; Z98.51 Tubal ligation status | CPT/HCPCS: 99212 ==

== ENCOUNTER 2024-01-24 08:18 | Day surgery (SDC) | payer MEDICAID, SELFPAY ==
[2024-01-22 13:50] VITALS: BMI 39.3
[2024-01-24] VITALS (9 sets, daily range): BP systolic 123–142; BP diastolic 70–89; PULSE 73–110; RESP 16–18; TEMP 36.1–37.3; O2SAT 92–97; BMI 38.8
[2024-01-24 08:34] LABS: Glucose, Whole Blood 100 mg/dL (60-115)
--- NOTE | 2024-01-24 08:35 | HO.ANESPROP2 ---
Documented by User: Lyla Shelton NP 01/22/24 13:26 HPI - Anesthesia Eval Consult details Narrative: 53yo F for D&C Hysteroscopy,possible myomectomy [facility] Active Problems Active Problems: All Active Problems Vaginal discharge (Acute) Microscopic hematuria (Acute) Pelvic pain (Acute) Postmenopausal bleeding (Acute) LGSIL on Pap smear of cervix (Acute) Past Medical History Medical History (Updated 01/24/24 @ 08:18 by Yana Clay) HTN (hypertension) Tachycardia Sleep apnea LGSIL on Pap smear of cervix Surgical History Surgical History Hx of tubal ligation Hx of section Social History Social History Advance Directives: No Advance Directives Information Provided: Yes Meds Allergies Allergy/AdvReac Type Severity Reaction Status Date / Time No Known Allergies Allergy Verified 01/24/24 08:13 Home Medications ?Medication ?Instructions ?Recorded ?Confirmed ?Last Taken ?Type gabapentin 100 mg capsule 300 mg PO Q8H 01/31/23 01/24/24 Unknown History losartan 100 mg tablet 100 mg PO DAILY 01/20/24 01/24/24 Unknown History metformin 500 mg tablet 500 mg PO DAILY 01/24/24 01/24/24 01/21/24 History Exam Pertinent Lab Results Pertinent Lab Results: Laboratory Tests 12/30/23 11:11 WBC 7.2 Hgb 14.1 Hct 45.1 Plt Count 192 Sodium 141 Potassium 5.1 Chloride 105 Carbon Dioxide 25 BUN 18 H Creatinine 0.70 Assessment and Plan Assessment Anesthesia Assessment: Chart Reviewed Documented by User: Myesha Regalado DO 01/24/24 08:36 PMFSH Past Medical History Medical History (Updated 01/24/24 @ 08:18 by Yana Caly) HTN (hypertension) Tachycardia Sleep apnea LGSIL on Pap smear of cervix Family History Family history of problems with anesthesia: No Surgical History Surgical History Hx of tubal ligation Hx of section History of Problems with Anesthesia: No Social History Social History Advance Directives: No Advance Directives Information Provided: Yes Meds Allergies Allergy/AdvReac Type Severity Reaction Status Date / Time No Known Allergies Allergy Verified 01/24/24 08:13 Home Medications ?Medication ?Instructions ?Recorded ?Confirmed ?Last Taken ?Type gabapentin 100 mg capsule 300 mg PO Q8H 01/31/23 01/24/24 Unknown History losartan 100 mg tablet 100 mg PO DAILY 01/20/24 01/24/24 Unknown History metformin 500 mg tablet 500 mg PO DAILY 01/24/24 01/24/24 01/21/24 History Exam Exam Date and Time: January 24, 2024 0832 Height,Weight and Vital Signs: Height 5 ft 4 in Weight 103.873 kg Airway Mallampati Class: II TM Dist: >3cm Neck ROM: Full Loose/Missing/Broken Teeth: No (patient denies any loose or broken teeth) Heart: S1S2 Lungs: CTAB Other: piercing on outside of right lower lip - unable go remove Assessment and Plan Assessment Anesthesia Assessment: Anesthesia Plan Discussed and Chart Reviewed Final Anesthetic Review Family History of Problems with Anesthesia: No History of Problems with Anesthesia: No NPO: Yes ASA Class: III Final Preanesthetic Review: No Changes in Pt Med Stat, Meds/Allgs Chart Reviewed, Consent Obtained/Reviewed (neonatal doctor at bedside for translation) and Anes Risks/Benef Reviewed Patient Risk: Intermediate Procedure Risk: Low Anesthetic Plan Anesthetic Plan: GA and Agree w/ Assess. and Plan Disposition: Standard PACU
--- NOTE | 2024-01-24 08:35 | MHC.SHP ---
Pre-Procedural Eval Section A - 24 Hr Update-Section A only Date of Service: 01/24/24 The patient is an INPATIENT: No Changes since office visit: No Cold of Flu in the past 2 weeks, No New Medical Problems, No Changes in Medication and No Patient answered all questions The patient has been examined within 24 hours of the surgical procedure. The History & Physical has been completed within 30 days and I have reviewed it.: Yes Section B - Complete if H&P > 30 days Chief Complaint: Postmenopausal bleeding Allergies: Allergies Allergy/AdvReac Type Severity Reaction Status Date / Time No Known Allergies Allergy Verified 01/24/24 08:13 Plan Diagnosis/Plan: Unchanged I have reviewed the history and physical and performed a pertinent physical examination on my patient. No changes have occurred unless specified. Time Spent With Patient Time: Total time managing care of this patient today ____ minutes.
[2024-01-24 08:44] LABS: UPreg QC Valid YES; Urine Pregnancy NEGATIVE (NEGATIVE)
[2024-01-24] MEDS: Lactated Ringers 1,000 ML 100 ML IVCONT (09:01)
--- NOTE | 2024-01-24 09:06 | PC.NURSE ---
Patient arrived to [facility] with one lip piercing in. court interpreter at bedside. Pt states jewelry unable to be removed. Patient educated on the risks. Dr. Regalado and Dr. Bautista at bedside and made aware. Waiver signed. Okay to proceed.
--- NOTE | 2024-01-24 09:54 | PM.OP ---
Brief Operative Note Date of Service: 01/24/24 Pre-op diagnosis: Postmenopausal bleeding Post-op diagnosis: same (Unable to enter the endometrial cavity) Procedure: Failed attempt at Hysteroscopy D&C Surgeon: Ronni Bautista MD Anesthesia: GLMA Was an Check Processing Clerk used for this Procedure?: No Estimated blood loss (mL): 0 Pathology: other Condition: stable Disposition: PACU
--- NOTE | 2024-01-24 09:55 | P.OP_ITS ---
Operative Note Operative Note Date of Service: 01/24/24 Narrative: Preop Diagnosis: Post Menopausal bleeding Operation: Failed attempt at Diagnostic Hysteroscopy, Dilataion & Curettage Post Op Diagnosis: Unable to enter the endometrial cavity QBL: Minimal Anesthesia: GLMA Surgeon: Ronni Bautista MD Supervisor Capacitor Processing: None Complication: None Pathology: None Procedure: The patient was put in the dorsal lithotomy position, scrubbed, and draped in the usual manner. A sterile speculum was inserted in the patient's vagina. The anterior lip of the cervix was grasped with a single tooth tenaculum. The cervix was dilated up to 5 mm, then an attempt to introduce the scope in the patient's uterine cavity was met by resistance. After multiple failed attempts the procedure was aborted. At the end of the procedure, all instruments were taken out of the patient uterine and vaginal cavity. The single tooth tenaculum was removed and homeostasis was assured using pressure,. The patient tolerated the procedure well and was transferred to the PACU in a stable condition.
[2024-01-24] MEDS: oxyCODONE HCl Immed Release 5 MG TABLET PO (10:20)
[2024-01-24] MEDS: Acetaminophen 325 MG TABLET 650 MG PO (10:30)
[2024-01-24 11:21] LABS: Hematocrit 39.7 % (37.0-47.0); Hemoglobin 13.1 g/dl (12.0-16.0); Mean Corpuscular Hemoglobin 31.1 pg (27.0-33.0); Mean Corpuscular Volume 94.3 fL (80.0-98.0); Mean Platelet Volume 10.8 fL (9.4-12.3); Platelet Count 172 X10*3/uL (160-400); Red Blood Count 4.21 X10*6/uL (4.20-5.50); Red Cell Distribution Width 14.2 % (11.0-16.0); White Blood Count 8.1 X10*3/uL (4.8-10.8)
--- NOTE | 2024-01-24 11:46 | P.PNOB_ITS ---
TRACTOR DRIVER TEAMSTER - Subjective Subjective Date of Service: 01/24/24 Interval history: Doing well with minimal pelvic cramping no vaginal bleeding, tolerated p.o. diet, no nausea or vomiting CLIENT REPRESENTATIVE Physical Exam Vitals Vital signs: Temp Pulse Resp BP Pulse Ox O2 Del Method 97 F 73 16 125/70 96 Room Air 01/24/24 11:35 01/24/24 11:35 01/24/24 11:35 01/24/24 11:35 01/24/24 11:35 01/24/24 11:35 BMI result Body Mass Index 38.8 Abdomen Auscultation/Inspection/Palpation: Normal bowel sounds, Soft, Non-distended and No tenderness TRACTOR DRIVER TEAMSTER - Prog Note: Results Labs 01/24/24 11:14 Labs: Laboratory Results - last 24 hr 01/24/24 01/24/24 01/24/24 08:22 08:30 11:14 WBC 8.1 RBC 4.21 Hgb 13.1 Hct 39.7 MCV 94.3 MCH 31.1 MCHC 33.0 RDW 14.2 Plt Count 172 MPV 10.8 Absolute Nucleated RBC 0.000 Nucleated RBC % (auto) 0.0 POC Glucose 100 Urine Test NEGATIVE TRACTOR DRIVER TEAMSTER - A/P (1) Postop check: Status: Acute Assessment and Plan: Discussed with the patient intraoperative events, failed attempt at hysteroscopy/D&C. Instructions given the patient to call in case of fever above 100.4, abdominal pain, distention, vaginal bleeding, nausea or vomiting, otherwise follow-up in the office in 2 weeks. All questions answered, the patient verbalized understanding Assessment/Plan Procedure/Diagnosis: Procedures Operation Date: 01/24/24 09:30 Actual Procedure Side Surgeon p FAILED ATTEMPT Hysteroscopy Not Applicable Ronni Bautista MD Time Spent With Patient Time: Total time managing care of this patient today ____ minutes.
== END 2024-01-24 12:20 | disposition home or self-care (01) ==
PROVIDERS: PCP Student in an Organized Health Care Education/Training Program; Visit Provider Obstetrics & Gynecology
PROC: 0UDB8ZZ Extraction of Endometrium, Via Natural or Artificial Opening Endoscopic (ICD-10-PCS; CPT 58558; principal; 2024-01-24 09:30)
DX: N95.0 Postmenopausal bleeding (principal); Z53.8 Procedure and treatment not carried out for other reasons
CPT/HCPCS: 58558; 36415; 81025; 82947; 85027; J1885; J2405; J2704; J3010

== ENCOUNTER → 2024-01-24 08:18 | Outpatient (BNV) | payer MEDICAID, SELFPAY | PROVIDERS: PCP Student in an Organized Health Care Education/Training Program; Visit Provider Obstetrics & Gynecology | DX: N95.0 Postmenopausal bleeding (principal); Z09 Encounter for follow-up examination after completed treatment for conditions other than malignant neoplasm | CPT/HCPCS: 58558; 99024 ==

== ENCOUNTER 2024-01-28 09:46 | Outpatient (REF) | payer MEDICAID, SELFPAY ==
--- NOTE | ~2024-01-28 | US_ITS ---
EXAMINATION: US ABDOMEN LIMITED CLINICAL INFORMATION: Patient with elevated LFTs chronically, to evaluate liver. Limited visualization due to bowel gas. COMPARISON: None available. TECHNIQUE: Real-time imaging of the right upper quadrant abdominal viscera. Limited visualization due to bowel gas. FINDINGS: PANCREAS: Limited visualization of pancreatic tail and head. Imaged portion of pancreatic body is unremarkable. A 1.5 x 0.9 x 2.1 cm atypical lymph node is present in the superior peripancreatic. LIVER: Mildly increased hepatic parenchymal heterogeneity and echogenicity could be associated with hepatocellular disease/hepatic steatosis and substantially limits visualization. Correlation with liver function tests and clinical exam recommended to determine further management. GALLBLADDER: Borderline gallbladder wall thickening of 3 mm. Complex debris is seen in the gallbladder, but is appreciated only in the decubitus position. COMMON BILE DUCT: Normal in caliber measuring 0.3 cm in diameter. RIGHT KIDNEY: Limited visualization. No hydronephrosis. No renal calculi. The kidney measures 11.2 cm in maximum dimension. FREE FLUID: None. US/US abdomen limited IMPRESSION: 1. Mildly increased hepatic parenchymal heterogeneity and echogenicity could be associated with hepatocellular disease/hepatic steatosis and substantially limits visualization. Correlation with liver function tests and clinical exam recommended to determine further management. 2. Borderline gallbladder wall thickening of 3 mm. Complex debris is seen in the gallbladder, but is appreciated only in the decubitus position. 3. A 1.5 x 0.9 x 2.1 cm atypical lymph node is present in the superior peripancreatic region. Additional imaging with contrast-enhanced CT scan recommended.
== END 2024-01-28 09:47 | disposition home or self-care (01) ==
LOC: HO.US 09:46
PROVIDERS: PCP Student in an Organized Health Care Education/Training Program; Visit Provider Student in an Organized Health Care Education/Training Program
DX: R74.01 Elevation of levels of liver transaminase levels (principal)
CPT/HCPCS: 76705

== ENCOUNTER 2024-02-03 07:22 | Outpatient (REF) | payer MEDICAID, SELFPAY ==
[2024-02-03 09:29] LABS: Hematocrit 43.6 % (37.0-47.0); Hemoglobin 13.6 g/dl (12.0-16.0); Mean Corpuscular HGB Conc 31.2 g/dl (31.0-35.0); Mean Corpuscular Hemoglobin 29.8 pg (27.0-33.0); Mean Corpuscular Volume 95.4 fL (80.0-98.0); Mean Platelet Volume 11.6 fL (9.4-12.3); Platelet Count 211 X10*3/uL (160-400); Red Blood Count 4.57 X10*6/uL (4.20-5.50); Red Cell Distribution Width 14.2 % (11.0-16.0); White Blood Count 7.3 X10*3/uL (4.8-10.8)
[2024-02-03 16:52] LABS: CT PCR NOT DETECTED (Not Detect.); NG PCR NOT DETECTED (Not Detect.)
== END 2024-02-03 07:23 | disposition home or self-care (01) ==
LOC: HO.LAB 07:22
PROVIDERS: PCP Student in an Organized Health Care Education/Training Program; Visit Provider Obstetrics & Gynecology
DX: N95.0 Postmenopausal bleeding (principal); R10.2 Pelvic and perineal pain
CPT/HCPCS: 0353U; 36415; 85027; 99212

== ENCOUNTER 2024-02-03 07:22 | Outpatient (AMB) | payer MEDICAID, SELFPAY ==
--- NOTE | 2024-02-03 07:43 | A.OFFVIS_ITS ---
Vital Signs 02/03/24 07:53 Height 5 ft 4 in Weight 229 lb BMI 39.3 Intake Visit Reasons: pelvic pain Rotational Moulding Operator Required: Yes Rotational Moulding Operator Language: Commercial Counsel Name: Trista CHASE Information Interpreted: non-clinical & clinical Dining Room Coordinator: Dining Room Coordinator Present (Trista CHASE) Accompanied by: Self / Same As Patient Allergies No Known Allergies Allergy (Verified 01/24/24 08:13) HPI Comments Details: Presenting for postop failed attempt at hysteroscopy D&C doing well, no vaginal bleeding no complaints. No fever or chills, positive flatus, no distention, no nausea or vomiting. Pap smear was negative HPV E6/E7 positive [facility] Medical History (Updated 02/03/24 @ 08:16 by Ronni Bautista MD) Polyarthralgia Post traumatic stress disorder Constipation Cervical disc disease Generalized anxiety disorder Mixed hyperlipidemia Type 2 diabetes mellitus HTN (hypertension) Tachycardia Sleep apnea LGSIL on Pap smear of cervix Surgical History Hx of tubal ligation Hx of section Social History Patient Tobacco Use Status: Never used Tobacco Female Reproductive History Menstrual Age of Menarche: 12 Review of Systems Const All systems reviewed & are unremarkable except as noted in HPI and below Physical Exam Vital Signs: BMI result Body Mass Index 39.3 GI Palpation (GI): Soft to palpation and nontender General: Yes no CVA tenderness External Female Exam: normal external appearance and normal appearance of the urethra Speculum Exam - Vagina: normal appearance of the vagina, normal palpation, no lesions and no masses Speculum Exam - Cervix: normal appearance of the cervix, normal palpation, no lesions, no masses and nontender Bimanual exam- vagina & uterus: normal bimanual exam, normal palpation, uterine size normal, normal palpation, uterine shape normal, No Cervical tenderness present and non-tender Bimanual Exam- Adnexa, other: normal adnexae Back/Spine/Pelvis Back: no CVA tenderness Assessment & Plan Assessment & Plan (1) Postmenopausal bleeding: Comment: Thick endometrium Failed attempt at hysteroscopy D&C Code(s): N95.0 - Postmenopausal bleeding Category: Medical Plan: Discussed with the patient intraoperative events, failed attempt at hysteroscopy D&C, explained to the patient the endometrial pathology including endometrial hyperplasia and/or malignancy has not been ruled out yet refer to [facility] for further management (2) Cervical high risk HPV (human papillomavirus) test positive: Code(s): R87.810 - Cervical high risk human papillomavirus (HPV) DNA test positive Category: Medical Plan: Discussed with the patient the result of her co testing, negative Pap smear/HPV E6/E7 positive, its significance, risk of progression, persistence, and regression. the false positive/negative rate of a Pap smear as a screening test in detecting cervical cancer and the indication for a diagnostic test -co lposcopy, biopsy, endocervical curettage. Instructions given the patient to schedule colposcopy/biopsy/ECC within a week. The patient verbalized understanding and agreed with the plan, all questions answered. Orders: Orders Complete Blood Count no Diff Today N95.0 - Postmenopausal bleeding Coding Level of Care Code Est Pt Level 3 (41846) Diagnoses Postmenopausal bleeding N95.0 Cervical high risk HPV (human papillomavirus) test positive R87.810
[2024-02-03 07:53] VITALS: BMI 39.3
== END 2024-02-03 08:29 | disposition home or self-care (01) ==
PROVIDERS: PCP Student in an Organized Health Care Education/Training Program; Referring Provider Student in an Organized Health Care Education/Training Program; Visit Provider Obstetrics & Gynecology
DX: N95.0 Postmenopausal bleeding (principal); R87.810 Cervical high risk human papillomavirus (HPV) DNA test positive
CPT/HCPCS: 99213

== ENCOUNTER 2024-02-03 08:52 | Outpatient (REF) | payer MEDICAID, SELFPAY | END 2024-02-03 08:53 | disposition home or self-care (01) | LOC: HO.LNP 08:52 | PROVIDERS: Visit Provider Obstetrics & Gynecology | DX: Z13.89 Encounter for screening for other disorder (principal) ==

== ENCOUNTER 2024-02-11 08:58 | Outpatient (REF) | payer MEDICAID, SELFPAY | END 2024-02-11 08:59 | disposition home or self-care (01) | LOC: HO.LNP 08:58 | PROVIDERS: PCP Student in an Organized Health Care Education/Training Program; Visit Provider Obstetrics & Gynecology | DX: R87.810 Cervical high risk human papillomavirus (HPV) DNA test positive (principal) | CPT/HCPCS: 57454; 88305 ==

== ENCOUNTER 2024-02-11 08:58 | Outpatient (AMB) | payer MEDICAID, SELFPAY ==
[2024-02-11 09:00] VITALS: BP 120/70; BMI 39.0
--- NOTE | 2024-02-11 09:00 | A.OFFVIS_ITS ---
Vital Signs 02/11/24 09:00 Height 5 ft 4 in Weight 227 lb 1.218 oz BMI 39.0 BP 120/70 Intake Visit Reasons: Colposcopy Semiconductor Processing Group Leader Required: Yes Semiconductor Processing Group Leader Language: Wax Pattern Coater Services: Semiconductor Processing Group Leader Present Semiconductor Processing Group Leader Name: Trista CHASE Information Interpreted: non-clinical & clinical Concession Attendant: Concession Attendant Present (Trista CHASE) Accompanied by: Self / Same As Patient Allergies No Known Allergies Allergy (Verified 02/11/24 09:09) Post menopausal: Yes HPI Comments Details: Presenting for colposcopy for negative Pap smear/HPV E6/E7 positive. Last year the patient had SHADE 1 PFSH Medical History (Updated 02/11/24 @ 09:25 by Ronni Bautista MD) Polyarthralgia Post traumatic stress disorder Constipation Cervical disc disease Generalized anxiety disorder Mixed hyperlipidemia Type 2 diabetes mellitus HTN (hypertension) Tachycardia Sleep apnea LGSIL on Pap smear of cervix Surgical History Hx of tubal ligation Hx of section Social History Patient Tobacco Use Status: Never used Tobacco Female Reproductive History Menstrual Age of Menarche: 12 Physical Exam Vital Signs: BMI result Body Mass Index 39.0 Office Procedures Colposcopy Colposcopy: Pre-Procedure Counseling: Before beginning the procedure, I conducted comprehensive counseling with the patient. We thoroughly discussed the procedure itself, including its details, alternatives, and all associated risks. This included but not limited to the following complications such as bleeding, infection, and injury to the vagina, bladder, and vessels, as well as the potential need for transfusion with all its associated risks. Subsequently, the patient sign the consent. Pap smear result: Negative Pap/HPV E6/E7 positive, SHADE 1 in 12/09. Urine test in office = Negative Procedure: During the procedure, the following steps were performed: A speculum was inserted, and acetic acid was applied. Colposcopy was conducted, allowing visualization of the transformation zone. Acetowhite lesions were identified at the 6 o'clock position. Cervical biopsies were obtained from the 6 o'clock position, followed by an endocervical curettage (ECC). Vaginoscopy of the upper vagina revealed no evidence of aceto-white lesions. Hemostasis was achieved using Monsel solution, and the patient tolerated the procedure well. Post-Procedure Instructions: The patient was advised to promptly contact the office or the after hours answering service or go to the emergency room if experiencing a temperature exceeding 100.4?F, abdominal pain, nausea/vomiting, or bleeding. Additionally, the patient was instructed to abstain from vaginal intercourse and bathtub use. The patient confirmed understanding of these instructions. Discharge Instructions: The patient was instructed to schedule a follow-up appointment in 2 weeks for further evaluation and management. Please note that this note was generated using a voice recognition program, and errors may have occurred during flotation tender helper. [id number] of cervix including upper vagina with biopsy and ECC Procedure code (CPT) selection complete Assessment & Plan Assessment & Plan (1) Cervical high risk HPV (human papillomavirus) test positive: Comment: 12/09 SHADE 1 Code(s): R87.810 - Cervical high risk human papillomavirus (HPV) DNA test positive Category: Medical Plan: Colposcopy done, see procedure note Orders: Orders AMB Colposcopy Today R87.810 - Cervical high risk human papillomavirus (HPV) DNA test positive Coding Level of Care Code Procedure Only Diagnoses Cervical high risk HPV (human papillomavirus) test positive R87.810 CPT Codes Colposcopy - CPT: 71561-[id number] of cervix including upper vagina with biopsy and ECC ([id number])
== END 2024-02-11 09:55 | disposition home or self-care (01) ==
PROVIDERS: PCP Student in an Organized Health Care Education/Training Program; Referring Provider Student in an Organized Health Care Education/Training Program; Visit Provider Obstetrics & Gynecology
DX: R87.810 Cervical high risk human papillomavirus (HPV) DNA test positive (principal)
CPT/HCPCS: 57454

== ENCOUNTER 2024-02-27 10:30 | Outpatient (REF) | payer MEDICAID, SELFPAY ==
--- NOTE | ~2024-02-27 | MM_ITS ---
EXAMINATION: MM SCREENING DIGITAL BREAST TOMOSYNTHESIS, BILATERAL CLINICAL INFORMATION: Screening. Asymptomatic. COMPARISON: Mammography: This study is compared with prior exams dating back to 2022. TECHNIQUE: Digital breast tomosynthesis is performed in both the craniocaudal and mediolateral oblique views along with computer-aided detection (CAD). Synthesized 2D images are generated from the tomosynthesis. FINDINGS: There are scattered areas of fibroglandular density (ACR BI-RADS breast composition Category b). There are no significant masses, abnormal calcifications, or other abnormalities. MM/MM tomosynthesis screening BI IMPRESSION: No mammographic evidence of malignancy. ASSESSMENT: BI-RADS BI-RADS 1 - Negative RECOMMENDATION: Routine annual mammography screening. 1 year F/U This examination should not preclude the clinical evaluation of a suspicious palpable abnormality. This patient's information was entered into a reminder system with a target due date for their next mammogram.
== END 2024-02-27 10:31 | disposition home or self-care (01) ==
LOC: HO.MAMMO 10:30
PROVIDERS: PCP Student in an Organized Health Care Education/Training Program; Visit Provider Obstetrics & Gynecology
DX: Z12.31 Encounter for screening mammogram for malignant neoplasm of breast (principal)
CPT/HCPCS: 77063; 77067

== ENCOUNTER → 2024-02-27 10:45 | Outpatient (BNV) | payer MEDICAID, SELFPAY | PROVIDERS: PCP Student in an Organized Health Care Education/Training Program; Visit Provider Radiology Diagnostic Radiology | DX: Z12.31 Encounter for screening mammogram for malignant neoplasm of breast (principal) | CPT/HCPCS: 77063; 77067 ==

== ENCOUNTER 2024-03-18 09:39 | Outpatient (AMB) | payer MEDICAID, SELFPAY ==
--- NOTE | 2024-03-18 09:51 | MHC.OFFVIS ---
Vital Signs 03/18/24 09:53 Height 5 ft 4 in Weight 227 lb 1.218 oz BMI 39.0 BP 126/80 Intake Visit Reasons: COLPO results Sponsorship Coordinator Required: Yes Sponsorship Coordinator Language: Strategic Client Executive Services: Sponsorship Coordinator Present (in person) Sponsorship Coordinator Name: Trista CHASE Information Interpreted: non-clinical & clinical Journeyman Powerhouse Operator: Journeyman Powerhouse Operator Present (Trista CHASE) Accompanied by: Self / Same As Patient Allergies No Known Allergies Allergy (Verified 03/18/24 09:56) Post menopausal: Yes HPI Comments Details: Presenting post colpo for follow-up. The patient is doing well with no complaints. The pathology showed the following: A. Endocervix, curettage: Squamous mucosa; negative for dysplasia; no endocervical glandular component present. B. Cervix, 6:00, biopsy: Squamous mucosa with inflammation and reactive changes; negative for dysplasia; no endocervical glandular component present. [facility] Medical History Polyarthralgia Post traumatic stress disorder Constipation Cervical disc disease Generalized anxiety disorder Mixed hyperlipidemia Type 2 diabetes mellitus HTN (hypertension) Tachycardia Sleep apnea LGSIL on Pap smear of cervix Surgical History Hx of tubal ligation Hx of section Social History Patient Tobacco Use Status: Never used Tobacco Female Reproductive History Menstrual Age of Menarche: 12 Review of Systems Const All systems reviewed & are unremarkable except as noted in HPI and below Reports as per HPI and Reports no additional complaints GI Reports no additional complaints Reports no additional complaints Physical Exam Vital Signs: Last Vital Signs BP 126/80 03/18/24 09:53 BMI result Body Mass Index 39.0 Assessment & Plan Assessment & Plan (1) Cervical high risk HPV (human papillomavirus) test positive: Comment: 12/09 SHADE 1 Code(s): R87.810 - Cervical high risk human papillomavirus (HPV) DNA test positive Category: Medical Plan: Discussed with the patient the pathology results of the colposcopy biopsies & endocervical curettage ( negative). Discussed with the patient the sensitivity specificity, positive and negative predictive value in detecting cervical cancer in addition discussed the regression, persistence and progression rates. Recommended co-testing in 12 months, if cytology and or HPV are abnormal will proceed was colposcopy biopsy and endocervical curettage. Instructions given to the patient to schedule a co test appointment in 1 year. All questions answered the patient verbalized understanding. Coding Level of Care Code Est Pt Level 3 (03999) Diagnoses Cervical high risk HPV (human papillomavirus) test positive R87.810
[2024-03-18 09:53] VITALS: BP 126/80; BMI 39.0
== END 2024-03-18 10:09 | disposition home or self-care (01) ==
LOC: HO.HWS 09:39
PROVIDERS: PCP Student in an Organized Health Care Education/Training Program; Referring Provider Student in an Organized Health Care Education/Training Program; Visit Provider Obstetrics & Gynecology
DX: R87.810 Cervical high risk human papillomavirus (HPV) DNA test positive (principal)
CPT/HCPCS: 99213

== ENCOUNTER → 2024-03-18 09:39 | Outpatient (BNVA) | payer MEDICAID, SELFPAY | PROVIDERS: PCP Student in an Organized Health Care Education/Training Program; Visit Provider Obstetrics & Gynecology | DX: R87.810 Cervical high risk human papillomavirus (HPV) DNA test positive (principal) | CPT/HCPCS: 99212 ==

== ENCOUNTER 2024-05-29 12:06 | Outpatient (REF) | payer MEDICAID, SELFPAY ==
--- NOTE | ~2024-05-29 | XR_ITS ---
EXAMINATION: XR CERVICAL SPINE CLINICAL INFORMATION: Neck pain COMPARISON: None available. TECHNIQUE: 3 views of the cervical spine were obtained. FINDINGS: Normal alignment. No fracture demonstrated. Mild to moderate multilevel degenerative disc disease which is most prominent at C6-C7. XR/XR cervical spine 3V IMPRESSION: Mild to moderate multilevel degenerative disc disease most prominent at C6-C7. Electronically signed by: Severino Coburn MD 05/29/2024 04:28 PM EDT
== END 2024-05-29 12:07 | disposition home or self-care (01) ==
LOC: HO.HHCX 12:06
PROVIDERS: Visit Provider Student in an Organized Health Care Education/Training Program
DX: M54.2 Cervicalgia (principal)
CPT/HCPCS: 72040

== ENCOUNTER 2024-06-12 11:34 | Outpatient (REF) | payer MEDICAID, SELFPAY ==
[2024-06-12 13:31] LABS: Hemoglobin 14.3 g/dl (12.0-16.0); Mean Corpuscular HGB Conc 31.8 g/dl (31.0-35.0); Mean Corpuscular Hemoglobin 29.8 pg (27.0-33.0); Mean Corpuscular Volume 93.8 fL (80.0-98.0); Mean Platelet Volume 11.2 fL (9.4-12.3); Platelet Count 203 X10*3/uL (160-400); Red Cell Distribution Width 13.9 % (11.0-16.0); White Blood Count 7.4 X10*3/uL (4.8-10.8)
[2024-06-12 13:39] LABS: Estimated Average Glucose 117 mg/dL; Hemoglobin A1C 143.8726 umol/L; Hemoglobin A1c % 5.7 % (<6.0); Total Hemoglobin (HGBA1C) 3738.8001 umol/L
[2024-06-12 14:06] LABS: Creatinine Urine 195.62 mg/dL; Microalbum/Creatinine Ratio Ur 20.9 ug/mg cr (<30)
[2024-06-12 14:13] LABS: Folate 8.9 ng/mL (> or = 4.0); Vitamin B12 607 pg/mL (200-900)
[2024-06-12 14:17] LABS: Alanine Aminotransferase 48 U/L (0-31); Albumin Level 4.2 g/dL (3.5-5.0); Alkaline Phosphatase 83 U/L (39-117); Aspartate Amino Transferase 47 U/L (5-31); Bilirubin Total 0.4 mg/dL (0.0-1.0); Blood Urea Nitrogen 17 mg/dL (9-16); Calcium 9.5 mg/dL (8.4-10.2); Cholesterol 232 mg/dL (<200); Estimated Glomerular Filt Rate > 60; Glucose Random 92 mg/dL (60-115); HDL Cholesterol 55 mg/dL (>40); LDL Cholesterol Calculated 155 mg/dL (<100); TSH reflex Free T4 2.64 uIU/mL (0.32-4.0); Total Protein 7.9 g/dL (6.5-8.0); Triglycerides 113 mg/dL (<150); Vitamin D 25-OH Total 33.6 ng/mL (>30)
[2024-06-12 14:35] LABS: Anion Gap 11 (12-20); Carbon Dioxide 28 mmol/L (22-29); Chloride 104 mmol/L (96-108); Potassium 4.1 mmol/L (3.3-5.1); Sodium 139 mmol/L (135-145)
[2024-06-12 18:52] LABS: CT PCR NOT DETECTED (Not Detect.); NG PCR NOT DETECTED (Not Detect.)
[2024-06-13 08:24] LABS: HBc Num1 0.21 S/CO (0.00-0.79); HBsAGNum1 0.28 S/CO (0.00-0.99); HIV AB/AG Nonreactive (Nonreactive); HIV Num 1 0.05 S/CO (0.00-0.99); Hepatitis B Core Antibody Nonreactive (Nonreactive); Hepatitis B Surface Antigen Negative (Negative); ~Hepatitis B Surface Antibody NONREACTIVE (Nonreactive); ~Hepatitis C Antibody Nonreactive (Nonreactive)
[2024-06-13 08:30] LABS: Syphilis Screen Nonreactive (Nonreactive)
== END 2024-06-12 11:35 | disposition home or self-care (01) ==
LOC: HO.HHCL 11:34
PROVIDERS: Visit Provider Student in an Organized Health Care Education/Training Program
DX: Z00.00 Encounter for general adult medical examination without abnormal findings (principal)
CPT/HCPCS: 36415; 80053; 80061; 82043; 82306; 82570; 82607; 82746; 83036; 84443; 85027; 86704; 86706; 86780; 86803; 87340; 87389; 87491; 87591

== ENCOUNTER 2024-06-19 09:40 | Outpatient (AMB) | payer MEDICAID, SELFPAY ==
--- NOTE | 2024-06-19 09:42 | A.OFFVIS_ITS ---
Vital Signs 06/19/24 09:47 Height 5 ft 4 in Weight 219 lb 2.232 oz BMI 37.6 BP 134/80 Blood Pressure Location Rt brachial Position Sitting Respiration 16 Pulse 100 Pulse Source Pulse Oximeter Pulse Oximetry (%) 99 Oxygen Delivery Method Room Air Intake Visit Reasons: Arthralgia/CM Intake Note: Patient presents for Arthralgia. 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 [employer] Installation Crew Member Present [employer] Install[employer] Crew Member Name: Luis Alberto [id number] Information Interpreted: non-clinical & clinical Allergies No Known Allergies Allergy (Verified 06/19/24 09:47) Medication List - Last Reconciled 06/19/24 by Carissa Jones MD atorvastatin 10 mg PO DAILY cyclobenzaprine 10 mg PO BEDTIME PRN gabapentin 300 mg PO Q8H levothyroxine (Tirosint) 88 mcg PO QAM losartan 100 mg PO DAILY metformin 500 mg PO DAILY sertraline 25 mg PO DAILY HPI Comments Details: Patient is a 54-year-old female with depression/anxiety, hypothyroidism, hypertension and diabetes who presents for evaluation of polyarthralgias. Referral note reviewed. Started on Cymbalta 30 mg with plan to increase. Patient states that for the past 4-5 years she has been having joint pain involving knees, shoulders, low back, bottom of feet, wrist, and fingers. No swelling to the MCPs, PIPs, or DIPs; but has noted swelling to the knees. Difficult to walk up and down stairs. Previously given celebrex but that only helped for about 1 hour and she only can take it twice a day. She did not think it was sufficient for her. At times she finds it difficult to get out of bed because she has pain all over her body. [facility] Medical History (Updated 06/19/24 @ 10:21 by Carissa Jones MD) Fibromyalgia Osteoarthritis Polyarthralgia Post traumatic stress disorder Constipation Cervical disc disease Generalized anxiety disorder Mixed hyperlipidemia Type 2 diabetes mellitus HTN (hypertension) Tachycardia Sleep apnea LGSIL on Pap smear of cervix Surgical History Hx of tubal ligation Hx of section Social History (Updated 06/19/24 @ 09:47 by MI Jacobson) Alcohol intake: never Patient Tobacco Use Status: Never used Tobacco Female Reproductive History Menstrual Age of Menarche: 12 Review of Systems Const Details: Review of Systems Constitutional: Denies fever, chills, weight loss ENT: Denies vision changes, eye pain or eye redness, dental caries, dry mouth GI: Denies nausea, vomiting, diarrhea, abdominal pain, change in BM Pulm: Denies SOB, FOREMAN, hemoptysis, wheezing Cards: Denies chest pain, palpitations Skin: Denies Raynaud's, rash, nail changes, photosensitivity, MEDICAL INVESTIGATOR: Denies headaches, weakness, paresthesias, recurrent falls MSK: as per HPI All other systems reviewed and are unremarkable except noted above Physical Exam Vital Signs: BMI result Body Mass Index 37.6 Physical Examination CONSTITUITIONAL Patient alert and cooperative. Well appearing and in no apparent painful distress HEENT Conjunctiva and sclera clear. ?Pupils equal round and reactive to light. ?No lymphadenopathy. ?Normal dentition. No oral or nasal ulcers noted. No evidence of discoid rash to the kev of ears CHEST/RESPIRATORY SYSTEM Normal respiratory effort and able to speak in complete sentences. ?Clear to auscultation bilaterally. ?No crackles, rales, rhonchi, wheezes heard. CARDIAC SYSTEM Regular rate and rhythm. ?S1 and S2 heard no murmurs. ?Radial pulses intact bilaterally MSK Hands: ?Good blending technician strength bilaterally - 5/5. ?Heberden's and Kala's nodes noted. ?No synovitis noted to the MCPs, PIPs or DIPs. ?No tenderness to palpation of these joints. Wrists: ?Full range of motion at the wrists without pain. ?No tenderness to palpation or synovitis noted to the wrists. Elbows: Full range of motion without pain. No tenderness, weakness, swelling, increased warmth or erythema. Shoulders: Full range of motion without pain. No tenderness, weakness, swelling, increased warmth or erythema. Hips: Full range of motion without pain. Hip bursa: No tenderness to palpation Knees: ?Full range of motion. ?No tenderness, swelling, increased warmth or erythema.? Bilateral crepitations Ankles: Full range of motion. ?No tenderness, swelling, increased warmth or erythema.? Feet: ?Negative squeeze test. ?No tenderness to palpation or swelling of the MTPs. Tender points:? Tenderness to palpation of the neck, shoulders, chest, elbows, hips, buttocks or knees. SKIN Skin intact without rashes. Results Reviewed Results Reviewed: Laboratory Tests 12/30/23 06/12/24 11:11 11:39 WBC 7.4 RBC 4.80 Hgb 14.3 Hct 45.0 Plt Count 203 ESR 33 H Sodium 139 Potassium 4.1 Chloride 104 Carbon Dioxide 28 BUN 17 H Creatinine 0.77 AST 47 H ALT 48 H C-Reactive Protein 1.97 H 25-OH Vitamin D Total 33.6 Rheumatoid Factor < 13.0 Cycl Citrul Peptide IgG <16 ROM Screen NEGATIVE Knee XR 12/2022 FINDINGS: Bone alignment is normal. No fracture or dislocation. Arthritis at the medial femoral tibial and patellofemoral joints with joint space narrowing and osteophyte formation. Osteophyte at the quadriceps tendon insertion to the patella. No joint effusion. Knee XR 10/2023 FINDINGS: Again seen are tricompartmental degenerative changes most marked in the medial and patellofemoral compartments with narrowing. Some tibial plateau osteophytes are present both medially and laterally. No joint effusion or fracture is seen. C-Spine XR 05/2024 FINDINGS: Normal alignment. No fracture demonstrated. Mild to moderate multilevel degenerative disc disease which is most prominent at C6-C7. Assessment & Plan Assessment & Plan (1) Osteoarthritis: Code(s): M19.90 - Unspecified osteoarthritis, unspecified site Category: Medical Qualifiers: Osteoarthritis location: multiple joints Osteoarthritis type: primary Qualified Code(s): M15.0 - Primary generalized (osteo)arthritis Plan: #OA Patient with polyarticular osteoarthritis involving bilateral knees, hands and spine. She also probably has some osteoarthritis involving her AC joint of her shoulder. Discussed treatment including physical therapy and regular exercise. We will send to physical therapy. (2) Fibromyalgia: Code(s): M79.7 - Fibromyalgia Category: Medical Plan: #Fibromyalgia Patient with likely diagnosis of fibromyalgia given her positive tender points and widespread pain without evidence of synovitis. While she does have some mildly elevated inflammatory markers this could be attributed to her obesity. Had a long discussion with patient about the diagnosis of fibromyalgia and that there is no treatment or cure. Patient has sleep apnea and not currently using CPAP. Encouraged patient that for the treatment of fibromyalgia it is more of a lifestyle change including improving sleep, getting more exercise and stretching, nursing weight, changing diet, managing symptoms of depression and anxiety. She is currently on duloxetine from her primary I agree with this and it can be increased up to 60 mg per day. I also increased her gabapentin to 800 mg nightly. Between now and the next visit I told her that she is to work on getting better sleep including trying [id number] melatonin, getting the sleep apnea machine as well as practicing sleep hygiene Plan I spent 40 minutes reviewing the record and labs, seeing the patient, discussing the treatment plan and documenting in the medical record ? Orders: Orders PT Evaluation and Treatment Today M15.0 - Primary generalized (osteo)arthritis, M79.7 - Fibromyalgia Referrals Pain Management Referral M15.0 - Primary generalized (osteo)arthritis, M79.7 - Fibromyalgia Medications: New gabapentin 800 mg PO BEDTIME 90 tabs 1RF M15.0 - Primary generalized (osteo)arthritis, M79.7 - Fibromyalgia duloxetine (Cymbalta) 30 mg PO DAILY Coding Level of Care Code New Pt Level 4 (26697) Diagnoses Primary osteoarthritis involving multiple joints M15.0 Osteoarthritis location: multiple joints Osteoarthritis type: primary Fibromyalgia M79.7
[2024-06-19 09:47] VITALS: BP 134/80; PULSE 100; RESP 16; O2SAT 99; BMI 37.6
== END 2024-06-19 10:33 | disposition home or self-care (01) ==
LOC: HO.RHE 09:41
PROVIDERS: PCP Student in an Organized Health Care Education/Training Program; Visit Provider Student in an Organized Health Care Education/Training Program
DX: M15.0 Primary generalized (osteo)arthritis (principal); M79.7 Fibromyalgia
CPT/HCPCS: 99204

== ENCOUNTER → 2024-06-19 09:40 | Outpatient (BNVA) | payer MEDICAID, SELFPAY | PROVIDERS: PCP Student in an Organized Health Care Education/Training Program; Visit Provider Student in an Organized Health Care Education/Training Program | DX: M15.0 Primary generalized (osteo)arthritis (principal); M79.7 Fibromyalgia | CPT/HCPCS: 99202 ==

== ENCOUNTER 2024-10-08 10:50 | Outpatient (REF) | payer MEDICAID, SELFPAY ==
--- NOTE | ~2024-10-08 | XR_ITS ---
EXAMINATION: XR LUMBOSACRAL SPINE CLINICAL INFORMATION: lower back pain wiht numbness and tingling in lower extremeties COMPARISON: None available. TECHNIQUE: 5 views of the lumbar spine including bilateral oblique views. FINDINGS: Limited lateral views due to mild obliquity. No scoliosis. Normal lordosis. No fracture, compression deformity, or suspicious bone lesion. Grade 1 anterolisthesis L5 on S1 measuring approximately 6 mm. This appears based on degenerative facet changes. There are probable full-thickness L5 pars defects. There is a probable right L4 pars defect. The left appears intact. Mild to moderate disc degeneration L5-S1. Mild degeneration L4-5. Facet degeneration L4-S1. There are mild degenerative changes in both SI joints. XR/XR lumbar spine 4V min IMPRESSION: 1. Suspect grade 1 spondylolisthesis L5 on S1. 2. Suspect right L4 pars defect. 3. Degenerative spondylosis L4-S1. Electronically signed by: Jose Palacios MD 10/08/2024 11:[address] [facility]
--- OUTSIDE RECORDS SUMMARY | 2024-10-08 12:02 | XMS_ITS ---
Author Organization Count Includes [facility] enter Address [address] [place] [address] Care Team Providers Care Social Welfare Administrator Name Role Phone Michael Muller Primary Care Provider Claudia Stafford [phone] REASON FOR VISIT FMX + Exam Encounters Encounter Location Date Provider Diagnosis [facility] [address] [place] [address] 09/10/2023 Claudia Stafford Plan Of Treatment No Information Progress Notes * MALIHA Carmen GALDAMEZ B:1970 (54 yo F)Acc No.[id number]:09/10/2023 Progress Note Patient:?MALIHA WILDERABAJocelin CORNEJO Provider:?Claudia Stafford DMD :1970???Age:53 Y???Sex:Female D ate:09/10/2023 Address:[address] [place] [address], [address] [id number] Pcp:Michael Muller Subjective: * Chief Complaints: * ???1. FMX + Exam. * Medical History:? * Implants:? Objective: * Vitals:? Assessment: Plan: * Treatment: * Images: Billing Information: * Visit Code:? * Procedure Codes:? * Electronic signature of Janet Stafford DMD on 10/08/2024 at 12:02 PM EST Sign off status: Pending * Provider:Sona Stafford DMD Date:?08/20 Generated for Benitez santana/Parminder/eTransmitting on:?10/08/2024 12:02 PM EST
--- OUTSIDE RECORDS SUMMARY | 2024-10-08 12:02 | XMS_ITS ---
Author Organization [facility] enter Address [address] [place] [address] Care Team Providers Care Reimbursement Manager Name Role Phone Michael Muller Primary Care Provider [phone] Allergies No Known Allergies REASON FOR VISIT 2 Month F/u IP, xray results Medications Medication SIG (Take, Route, Frequency, Duration) Notes Start Date End Date Status Losartan Potassium 100 MG 1 tablet Orall y Once a day for 30 day(s) 04/18/2023 Active metFORMIN HCl ER 500 MG 1 tablet with ev ening meal Orally Once a day for 30 day(s) 04/18/2023 Active Gabapentin 100 MG 3 capsule Orally tid for 30 day(s) 04/18/2023 Active Synthroid 88 MCG 1 tablet in the morn ing on an empty stomach Orally Once a day for 90 days 04/18/2023 Active Naproxen 500 MG 1 tablet with food o r milk as needed Orally every 12 hrs prn for 60 days 06/04/2023 Active Singulair 10 MG 1 tablet Orally Once a day Active Baclofen 10 MG 1 tablet as needed O rally Twice a day Active Fioricet 50-300-40 MG 1 capsule as neede d Orally every 4 hrs Active Sertraline HCl 25 MG 1 tablet Orally Onc e a day Active Atorvastatin Calcium 10 MG 1 tablet Oral ly Once a day Active Albuterol Sulfate HFA 108 (90 Base) MCG/ACT 2 puffs orally as needed Inhalation every 4 hrs as needed for 60 days 08/06/2023 Active Acetic Acid 2 % 5 drops into affecte d ear Otic bid prn for 10 day(s) 06/04/2023 Active Social History Tobacco Use: Social History Observation Description Date Details (start date - stop date) Never Smoker NA - NA * Tobacco Use/Smoking assessment Question Answer Notes Are you a nonsmoker Additional Findings: Tobacco Non-User Current no n-smoker Alcohol Screen (Audit-C) Question Answer Notes Did you have a drink containing alcohol in the p ast year? No Points 0 Interpretation Negative Sexual History Question Answer Notes Had sex in the past 12 months (vaginal, oral, or anal)? No Have you ever had a Sexually transmitted disease ? No SBIRT Question Answer Notes Patient refused/declined SBIRT screening at this time? No In the past 3 months, how of ten do you have 4 or more drinks on one occasion? Females (and Males 65 and older). In the past 3 months, how often do you have 5 or more drinks on one occasion? Males (younger than 65) Never The cumulative score is 0 A referral is not needed Problems Problem Type SNOMED Code ICD Code Onset Dates Problem Status W/U Status Risk Notes Problem 37788995 Cervicalgia (M54.2) Active confirmed Problem 429750481 History of sleep apnea (Z86.69) Active confirmed Problem 227464074 History of asthma (Z87.09) Active confirmed Vital Signs Height 60 in 08/06/2023 Weight 226 lbs 08/06/2023 BMI 44.13 kg/m2 08/06/2023 Temperature 96.8 degrees Fahrenheit 08/06/20 23 Blood pressure systolic 142 mm Hg 08/06/20 23 Blood pressure diastolic 74 mm Hg 023 Heart Rate 88 /min 08/06/2023 Respiratory Rate 17 /min 08/06/2023 Oximetry 98 % 08/06/2023 Height-cm 152.4 cm 08/06/2023 Weight-kg 102.51 kg 08/06/2023 Encounters Encounter Location Date Provider Diagnosis [facility] [address] [place] [address] 08/06/2023 Michael Ruiz Cervicalgia M54.2 ; History of sleep apnea Z86.69 and History of asthma Z87.09 Assessments Encounter Date Diagnosis (ICD Code) Assessment Notes Treatment Notes Treatment Clinical Notes Section Notes 08/06/2023 Cervicalgia (ICD-10 - M54.2) Ortho referral for tratment options 08/06/2023 History of sleep apnea (ICD-10 - Z86.69) Referral for sleep evaluation- Pulmonary 08/06/2023 History of asthma (ICD-10 - Z87.09) Plan Of Treatment Medication Medication Name Sig Start Date Stop Date Notes Albuterol Sulfate HFA 108 (9 0 Base) MCG/ACT 2 puffs orally as needed Inhalation every 4 hrs as needed for 60 days 08/06/2023 Treatment Notes Assessment Notes Cervicalgia Ortho referral for t ratment options History of sleep apnea Referral for slee p evaluation- Pulmonary Next Appt Details Follow Up: 2 Months, Reason: f/u Progress Notes * MALIHA RUDOLPH LilliamPaula B:1970 (53 yo F)Acc No.[id number]:08/06/2023 Progress Note Patient:?Jocelin MACKEY Provider:?Michael Muller MD :1970???Age:53 Y???Sex:Female D ate:08/06/2023 Address:[address] [place] [address], [place] [address] Check In:10:28 AM ESTCheck O ut:11:27 AM EST Subjective: * Chief Complaints: * ???2 Month F/u IPXray result s * HPI: ???Interim History:?53 year old female presents with c/o Tests/Studies performed was?xray.?Denies : Had consultation(s).?Denies : Was hospitalized.?Denies : Emergency room visits.?Denies : Inpatient Discharge:.?Depression Screening:?PHQ-9?Little interest or pleasure in doing things?Not at all,?Feeling down, depressed, or hopeless?Not at all,?Trouble falling or staying asleep, or sleeping too much?More than half the days,?Feeling tired or having little energy?More than half the days,?Poor appetite or overeating?Not at all,?Feeling bad about yourself or that you are a failure, or have let yourself or your family down?Not at all, Trouble concentrating on things, such as reading the newspaper or watching television?Not at all,?Moving or speaking so slowly that other people could have noticed; or the opposite, being so fidgety or restless that you have been moving around a lot more than usual?Not at all,?Thoughts that you would be better off or of hurting yourself in some way?Not at all,?Total Score?4,?Interpretation?Minimal Depression.? last dental visit on Apr 2023 ?last opt visit on Apr 2023 ?last pod visit never. ???Depression Screening:?PHQ-2 (2015 Edition)?Little interest or pleasure in doing things??Not at all,?Feeling down, depressed, or hopeless??Not at all,?Total Score?0.?Isolation Precautions:?Respiratory Illness Screening?1. Is fever present / reported??No,?2. Are respiratory illness symptom(s) present / reported??No,?3. Are other symptom(s) present / reported??No,?5. Has there been reported travel to a High Risk respiratory illness region??No,?6. Has close* contact with person(s) known to have communicable illness been reported??No,?7. Did travel or close contact (if applicable) occur within 14 days of symptom onset??No.?Coronavirus Clinical:?Denies : Coronavirus Symptoms.?Denies : Batista test order or result review.?Denies : Travel and Exposure History.?Denies : Comorbidity.?Denies : Social Barriers to Healthcare.?Self Management Goal Setting:?Self Management Screening?Patient Self Management Goals and Action Plan:?Work on something thats bothering me.?New/Follow-up Symptom:? Cervical x-rays discussed with patient. 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 She wishes to see an orthopdist for tratment options. ?She reports a history of sleep apnea diagnosed in [place]. She wasn't stephen to get a CPAP machine. She admist to daytime fatigue and somnelence. * ROS:?General/Constitutional:?Denies?Chills.?Denies?Fatigue.?Denies?Fever.?Ophthalmologic:?Denies?Blurred vision,?denies.?Denies?Contact lens,?denies.?Denies?Corrective lens,?denies.?Denies?Dry eye,?denies.?Denies?Eye Pain.?Denies?Eye problems,?denies.?ENT:?Denies?Dry mouth.?Denies?Ear Drainage.?Denies?Ear pain.?Denies?Nasal Drainage.?Denies?Nose/Throat problems,?denies.?Denies?Sinus pain/pressure.?Denies?Sore throat.?Denies?Swollen glands.?Endocrine:?Denies?Excessive sweating.?Denies?Excessive thirst.?Denies?Frequent urination.?Respiratory:?Denies?Chest pain.?Denies?Cough.?Denies?Shortness of breath,?denies.?Denies?Wheezing.?Breast:?Denies?Breast lump.?Denies?Breast pain.?Denies?Breast swelling.?Denies?Nipple discharge.?Denies?Rashes.?Cardiovascular:?Denies?Chest pain.?Denies?Edema.?Denies?Palpitations,?denies.?Gastrointestinal:?Denies?Abdominal pain.?Denies?Blood in stool.?Denies?Constipation.?Denies?Heartburn.?Denies?Nausea.?Denies?Rectal bleeding.?Denies?Vomiting.?Hematology:?Denies?Easy bruising,?denies.?Denies?Easy Bleeding.?Women Only:?Vaginal Lesion(s)?Denies.?Pelvic Pain?Denies.?Denies?Vaginal discharge/itching.?Genitourinary:?Denies?Dysuria.?Denies?Hematuria.?Denies?Polyuria.?Musculoskeletal:?Denies?Back pain.?Denies?Neck pain.?Denies?Swollen joints.?Peripheral Vascular:?Blood clots in legs?Denies.?Denies?Pain/cramping in legs after exertion.?Skin:?Denies?Mole(s)/Mole Changes.?Denies?Rash.?Neurologic:?Denies?Seizures.?Stroke?Denies,?denies.?Denies?Tingling/Numbness.?Denies?T ransient loss of vision.?Psychiatric:?Denies?Anxiety.?Denies?Depressed mood.? * Medical History:? * Surgical History:?c section x 3 bilat tubal * Ocular Surgical History:? * Hospitalization/Major Diagno stic Procedure:?see surgical * Family History:?Mother: dece ased.?Father: alive.?3 daughter(s) . .? * Social History:?* Drugs/Alcohol:?Alcohol Screen (Audit-C)?Did you have a drink containing alcohol in the past year??No,?Points?0,?Interpretation?Negative.?SBIRT?Patient refused/declined SBIRT screening at this time??No,?In the past 3 months, how often do you have 4 or more drinks on one occasion? Females (and Males 65 and older). In the past 3 months, how often do you have 5 or more drinks on one occasion? Males (younger than 65)?Never,?The cumulative score is?0,?A referral is?not needed.?* Tobacco Use:?* Tobacco Use/Smoking assessment?Are you a?nonsmoker,?Additional Findings: Tobacco Non-User?Current non-smoker.?* Sexual History:?Sexual History?Had sex in the past 12 months (vaginal, oral, or anal)??No,?Have you ever had a Sexually transmitted disease??No.? * Medications:?TakingFioricet 50-300-40 MG Capsule 1 capsule as needed Orally every 4 hrs Sertraline HCl 25 MG Tablet 1 tablet Orally Once a day Atorvastatin Calcium 10 MG Tablet 1 tablet Orally Once a day Singulair 10 MG Tablet 1 tablet Orally Once a day Baclofen 10 MG Tablet 1 tablet as needed Orally Twice a day Losartan Potassium 100 MG Tablet 1 tablet Orally Once a day metFORMIN HCl ER 500 MG Tablet Extended Release 24 Hour 1 tablet with evening meal Orally Once a day Gabapentin 100 MG Capsule 3 capsule Orally tid Synthroid 88 MCG Tablet 1 tablet in the morning on an empty stomach Orally Once a day Naproxen 500 MG Tablet 1 tablet with food or milk as needed Orally every 12 hrs prn Acetic Acid 2 % Solution 5 drops into affected ear Otic bid prn Taking Fioricet 50-300-40 MG Capsule 1 capsule as needed Orally every 4 hrs Taking Sertraline HCl 25 MG Tablet 1 tablet Orally Once a day Taking Atorvastatin Calcium 10 MG Tablet 1 tablet Orally Once a day Taking Singulair 10 MG Tablet 1 tablet Orally Once a day Taking Baclofen 10 MG Tablet 1 tablet as needed Orally Twice a day Taking Losartan Potassium 100 MG Tablet 1 tablet Orally Once a day Taking metFORMIN HCl ER 500 MG Tablet Extended Release 24 Hour 1 tablet with evening meal Orally Once a day Taking Gabapentin 100 MG Capsule 3 capsule Orally tid Taking Synthroid 88 MCG Tablet 1 tablet in the morning on an empty stomach Orally Once a day Taking Naproxen 500 MG Tablet 1 tablet with food or milk as needed Orally every 12 hrs prn Taking Acetic Acid 2 % Solution 5 drops into affected ear Otic bid prn * Allergies:?N.K.D.A.no[Allerg ies Verified] Objective: * Vitals:?Ht: 60 in, Wt:226lbs , BMI:44.13Index, Temp:96.8F, BP:142/74mm Hg, Pain scale:01-10, HR:88/min, RR:17/min, Oxygen sat %:98%, Ht-cm: 152.4 cm, Wt-k.51 kg. * Examination: ???General Examination: ?GENERAL APPEARANCE:?in no acute distress, well developed, well nourished.?EYES:?pupils equal, round, reactive to light and accommodation.?EARS:?normal , auditory canal clear , tympanic membrane intact, clear , BOTH EARS.?NOSE:?nares patent, no lesions.?ORAL CAVITY:?mucosa moist , good dentition.?THROAT:?clear , no erythema , no exudate , uvula midline.?NECK/THYROID:?neck supple, full range of motion, no cervical lymphadenopathy.?SKIN:?no suspicious lesions, warm and dry.?HEART:?no murmurs, regular rate and rhythm, S1, S2 normal.?LUNGS:?clear to auscultation bilaterally.?BREASTS:?no dimpling , no discharge , no drainage , no masses palpable bilaterally , nontender.?ABDOMEN:?normal, bowel sounds present, soft, nontender, nondistended.?BACK:?normal, full range of motion, no costovertebral angle tenderness, no kyphosis, no scoliosis.?MUSCULOSKELETAL:?no lumbosacral spine tenderness , full range of motion.?EXTREMITIES:?no clubbing, cyanosis, or edema.?NEUROLOGIC:?nonfocal, motor strength normal upper and lower extremities, sensory exam intact.?PSYCH:?alert, oriented, cognitive function intact, cooperative with exam, good eye contact, judgement and insight good.? Assessment: * Assessment: 1.?Cervicalgia - M54.2 (Prim jane)?2.?History of sleep apnea - Z86.69?3.?History of asthma - Z87.09? Plan: * Treatment: 2.?History of sleep apnea? Notes: Referral for sleep evaluation- Pulmonary?? 3.?History of asthma? Start Albuterol Sulfate HFA Aerosol Solution, 108 (90 Base) MCG/ACT, 2 puffs orally as needed, Inhalation, every 4 hrs as needed, 60 days, 2, Refills 3.?? * Procedure Codes:? * Follow Up:?2 Months (Reason: f/u) * Images: Billing Information: * Visit Code:? [id number] Established Visit - Level 3 - 15min. * Procedure Codes:? * Sign off status: Completed true * Provider:?Michael Muller MD Date:? 023 Generated for Printi ng/Romerog/eTransmitting on:?10/08/2024 12:02 PM EST History and Physical Notes * HPI (History of Present Illness) Category Sub-Category Detail Notes Category Not es Interim History Tests/Studies performed was xray Had consultation(s) Was hospitalized Emergency room visits New/Follow-up Symptom Cervical x-rays discussed with patient. 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 She wishes to see an orthopdist for tratment options. She reports a history of sleep apnea diagnosed in [place]. She wasn't stephen to get a CPAP machine. She admist to daytime fatigue and somnelence. Depression Screening PHQ-9 Little inte rest or pleasure in doing things: Not at all last dental visit on Apr 2023 last opt visit on Apr 2023 last pod visit never Feeling down, depressed, or hopeless: No t at all Trouble falling or staying a sleep, or sleeping too much: More than half the days Feeling tired or having little energy: M ore than half the days Poor appetite or overeating: Not at all Feeling bad about yourself o r that you are a failure, or have let yourself or your family down: Not at all Trouble concentrating on thi ngs, such as reading the newspaper or watching television: Not at all Moving or speaking so slowly that other people could have noticed; or the opposite, being so fidgety or restless that you have been moving around a lot more than usual: Not at all Thoughts that you would be b viola off or of hurting yourself in some way: Not at all Total Score: 4 Interpretation: Minimal Depression Depression Screening PHQ-2 (2015 Edition) Little interest or pleasure in doing things?: Not at all Feeling down, depressed, or hopeless?: N ot at all Total Score: 0 Self Management Goal Setting Self Management Scr eening Patient Self Management Goals and Action Plan: : Work on something thats bothering me Isolation Precautions Respiratory Illnes s Screening 1. Is fever present / reported?: No 2. Are respiratory illness symptom(s) pr esent / reported?: No 3. Are other symptom(s) present / report ed?: No 5. Has there been reported t ravel to a High Risk respiratory illness region?: No 6. Has close* contact with p erson(s) known to have communicable illness been reported?: No 7. Did travel or close conta ct (if applicable) occur within 14 days of symptom onset?: No Examination Category Sub-Category Detail Notes Category Not es General Examination GENERAL APPEARANCE: in no ac xochitl distress, well developed, well nourished EYES: pupils equal, round, reactive to light and accommodation EARS: normal , auditory ca nal clear , tympanic membrane intact, clear , BOTH EARS NOSE: nares patent, no les ions THROAT: clear , no erythema , no exudate , uvula midline NECK/THYROID: neck supple, full ra nge of motion, no cervical lymphadenopathy HEART: no murmurs, regular rate and rhythm, S1, S2 normal LUNGS: clear to auscultatio n bilaterally ABDOMEN: normal, bowel sounds present, soft, nontender, nondistended NEUROLOGIC: nonfocal, motor stre ngth normal upper and lower extremities, sensory exam intact SKIN: no suspicious lesion s, warm and dry EXTREMITIES: no clubbing, cyanosi s, or edema BACK: normal, full range o f motion, no costovertebral angle tenderness, no kyphosis, no scoliosis BREASTS: no dimpling , no dis charge , no drainage , no masses palpable bilaterally , nontender MUSCULOSKELETAL: no lumbosacral spine tenderness , full range of motion PSYCH: alert, oriented, cog nitive function intact, cooperative with exam, good eye contact, judgement and insight good ORAL CAVITY: mucosa moist , good dentition
--- OUTSIDE RECORDS SUMMARY | 2024-10-08 12:02 | XMS_ITS | Encounter Summary ---
Author Organization [employer] Address [address] [facility] [address] [place] [address] Care Team Providers Care Yard Manager Name Role Phone Wendy Pang MD Primary Care Pro vider Reason for Visit * Reason Onset Date Comments Accamodation Letter 06/25/2024 Encounter Details Date Type Department Care Team ([facility] st Contact Info) Description 06/25/2024 Telephone [facility] [address] [place] [address] Wendy Pang MD [address] [place] [address] Accamodation Letter Social History Tobacco Use Types Packs/Day Years Used Date Smoking Tobacco: Never Smokeless Tobacco: Never Alcohol Use Standard Drinks/Week Comments Never 0 (1 standard drink = 0.6 oz pur e alcohol) Depression Answer Date Recorded Patient Health Questionnaire-9 Score 10 04/28/2024 Patient Health Questionnaire-9 Score 10 04/28/2024 Last PHQ-9: Questionnaire Data Not on file 0 04/28/2024 Housing Stability Answer Date Recorded What is your housing situation today? I do not have housing (Staying with others, in a hotel, in a senior living, living outside on the street, on a beach, in a car, or in a park 01/15/[address] you li ve. Do you have problems with any of the following? None of the above 01/15/2024 Food Insecurity Answer Date Recorded Within the past 12 months, y ou worried that your food would run out before you got money to buy more: Never True 01/15/2024 Within the past 12 months,th e food you bought just didn't last and you didn't have enough money to get more: Never True Transportation Answer Date Recorded In the past 12 months, has l ack of transportation kept you from medical appts, meetings, work or from getting things needed for daily living? No 01/15/2024 Utilities Answer Date Recorded In the past 12 months, has t he electric, gas, oil or water company threatened to shut off services in your home? No 01/15/2024 Depression Answer Date Recorded Patient Health Questionnaire-2 Score 5 04/28/2024 Internet Access Answer Date Recorded Internet Access Q1 Yes 04/20/2024 Internet Access Q2 Not on file 04/20/2024 Comments No Sex and Gender Information Value Date Recorded Sex Assigned at Female 11/13/2022 9:10 AM EDT Legal Sex Female 1:08 PM EST Gender Identity Female 11/13/2022 9:10 AM EDT Sexual Orientation Straight 04/28/2024 1: 15 PM EDT documented as of this encounter Miscellaneous Notes * Telephone Encounter - Chad Kim - 06/25/2024 4:23 PM EST Tc from pt requesting an accomodation letter for her bath tub to be changed. Pt stated she's finding it increasingly difficult to lift her legs to be able to enter the bath. If any questions you can contact pt at [phone]. (Faroese Speaker) documented in this encounter Plan of Treatment Upcoming Encounters Date Type Department Care Team (Late st Contact Info) Description 10/26/2024 9:00 AM EDT Nurse Only [facility] [address] [place] [address] 11/20/2024 9:30 AM EDT Office Visit [facility] [address] [place] [address] Wendy Pang MD [address] [place] [id number] documented as of this encounter Visit Diagnoses Not on filedocumented in this encounter Additional Health Concerns Assessment Noted Time PHQ-9 Depression Total Score: 10 024 1:15 PM EDT documented as of this encounter Care Teams Yard Manager Relationship Specialty Start Date End Date Wendy Pang MD [address] [place] [id number] PCP - General Internal Medicine 02/23/23 documented as of this encounter
--- OUTSIDE RECORDS SUMMARY | 2024-10-08 12:02 | XMS_ITS | Patient Health Record ---
Author Organization [facility] enter Address [address] [place] [address] Care Team Providers Care Torch Burner Name Role Phone Michael Muller Primary Care Provider [phone] Allergies No Known Allergies Reason For Referral No Information Medications Medication SIG (Take, Route, Frequency, Duration) Notes Start Date End Date Status Atorvastatin Calcium 10 MG 1 tablet Oral ly Once a day Active Singulair 10 MG 1 tablet Orally Once a day Active Baclofen 10 MG 1 tablet as needed O rally Twice a day Active Losartan Potassium 100 MG 1 tablet Orall [...] hrs prn for 60 days 06/04/2023 Active Acetic Acid 2 % 5 drops into affecte d ear Otic bid prn for 10 day(s) 06/04/2023 Active Fioricet 50-300-40 MG 1 capsule as neede d Orally every 4 hrs Active Albuterol Sulfate HFA 108 (90 Base) MCG/ACT 2 puffs orally as needed Inhalation every 4 hrs as needed for 60 days 08/06/2023 Active Sertraline HCl 25 MG 1 tablet Orally Onc e a day Active Social History Tobacco Use: Social History [...] Problem Status W/U Status Risk Notes Problem 44283068 Cervicalgia (M54.2) Active confirmed Problem 59996198204032 Morbid (severe) obesity due to excess calories (E66.01) Active confirmed Problem 444609838 Acquired hypothyroidism (E03.9) Active confirmed Problem 40453895 Hyperlipidemia, unspecified hyperlipidemia type (E78.5) Active confirmed Problem 845093250 Type 2 diabetes mellitus without complication, without long-term current use of insulin (E11.9) Active confirmed Problem 92622098 Dysphagia, unspecified type (R13.10) Active confirmed Problem 545652710 Depression with anxiety (F41.8) Active confirmed Problem 73041728 Sleep apnea, unspecified type (G47.30) Active confirmed Problem 159756686 History of asthm a (Z87.09) Active confirmed Problem 129331747 Ear itch (L29.9) Active confirmed Problem 982642664 History of sleep apnea (Z86.69) Active confirmed Problem 590874239 Body mass index [BMI] 40.0-44.9, adult (Z68.41) Active confirmed Plan Of Treatment Pending Test Test Name Order Date THYROID PANEL WITH TSH 04/18/2023 LIPID PANEL WITH REFLEX TO DIRECT LDL COMPREHENSIVE METABOLIC PANEL 04/18/2023 CBC (INCLUDES DIFF/PLT) 04/18/2023 URINALYSIS, COMPLETE W/REFLEX TO CULTURE 04/18/2023 HEMOGLOBIN A1c 04/18/2023 XR CERVICAL SP 2/3 VIEWS 06/04/2023 Insurance Providers Payer Name Payer Address Payer Phone Subscriber Number Group Number Insured Name Patient Relationship to Insured Coverage Start Date Coverage End Date NICOLETTE Lynch [address] [place], [place] [id number] [phone] [id number] Jocelin Talley Self - patient is the insured DENTAL Medicaid [place] [address] [place] [address] [phone] [id number] Jocelin Talley Self - patient is the insured Medical (General) History Surgical History Surgery Date(Month/Year) c section x 3 bilat tubal Hospitalization History Reason Date(Month/Year) see surgical
--- OUTSIDE RECORDS SUMMARY | 2024-10-08 12:02 | XMS_ITS | Clinical Summary ---
Author Organization [employer] Address [address] [facility] [address] [place] [address] Care Team Providers Care Engagement Executive Name Role Phone Wendy Pang MD Primary Care Pro vider Allergies No known active allergies Medications * This document contains information received from the source organization and may not represent a complete record from that organization. cetirizine (ZyrTEC) 10 MG tablet Take 1 tablet (10 mg) by mouth Once per day. 90 tablet 024 2024 Active levothyroxine (Tirosint) 88 MCG capsuleIndicatio ns:Hypothyroidis m, unspecified type Take 1 capsule (88 mcg) by mouth before breakfast. 30 capsule 2 Active metFORMIN (Glucophage) 500 MG tabletIndication s:Type 2 diabetes mellitus without complication, without long-term current use of insulin ([facility]) TAKE 1 TABLET BY MOUTH EVERY DAY WITH FOOD 90 tablet 1 Active DULoxetine (Cymbalta) [address] capsule Take 1 capsule (30 mg) by mouth 2 times daily. Do not crush or chew. 180 capsule 024 2024 Active Blood Pressure kit 1 Device Once per day. 1 kit Active Semaglutide-Weig ht Management (Wegovy) 0.25 MG/0.5ML solution auto-injectorInd ications:Class 3 severe obesity due to excess calories without serious comorbidity with body mass index (BMI) of 40.0 to 44.9 in adult ([facility]) Inject 0.25 mg subcutaneously once a week for weeks 1-4 2 mL 3 Active Semaglutide-Weig ht Management (Wegovy) 0.5 MG/0.5ML solution auto-injectorInd ications:Class 3 severe obesity due to excess calories without serious comorbidity with body mass index (BMI) of 40.0 to 44.9 in adult ([facility]) Inject 0.5 mg subcutaneously weekly on weeks 5-8 2 mL 3 024 Active ibuprofen 800 MG tablet 800 mg. Active atorvastatin (Lipitor) 20 MG tabletIndication s:Mixed hyperlipidemia TAKE 1 TABLET BY MOUTH EVERY DAY 90 tablet Active losartan-hydroCH LOROthiazide (Hyzaar) 100-12.5 MG tablet TAKE 1 TABLET BY MOUTH EVERY DAY 90 tablet Active Tirzepatide-Weig ht Management (Zepbound) 2.5 MG/0.5ML solution auto-injectorInd ications:Obesity Inject 0.5 mL (2.5 mg) under the skin 1 (one) time per week. 2 mL 025 2024 Active propranolol (Inderal) 20 MG tabletIndication s:Intractable 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 aura and without status migrainosus Take 1 tablet (20 mg) by mouth 2 times daily. 60 tablet 11 025 2025 Active pregabalin (Lyrica) 75 MG capsuleIndicatio ns:Polyarthralgi a Take 1 capsule (75 mg) by mouth 2 times daily. 60 capsule 1 025 2025 Active atorvastatin (Lipitor) 20 MG tabletIndication s:Mixed hyperlipidemia Take 1 tablet (20 mg) by mouth Once daily. 90 tablet 024 2024 Discontinued(R eorder (will not trigger notification to Pharmacy)) losartan-hydroCH LOROthiazide (Hyzaar) 100-12.5 MG tablet Take 1 tablet by mouth Once per day. 90 tablet 024 2024 Discontinued(R eorder (will not trigger notification to Pharmacy)) gabapentin (Neurontin) 600 MG tabletIndication s:Polyarthralgia Take 1 tablet (600 mg) by mouth at bedtime. 30 tablet 3 025 2024 Discontinued(I neffective) propranolol (Inderal) 20 MG tabletIndication s:Intractable 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 aura and without status migrainosus Take 1 tablet (20 mg) by mouth 2 times daily. 60 tablet 11 025 2024 Discontinued(R eorder (will not trigger notification to Pharmacy)) Active Problems Problem Noted Date Diagnosed Date Arthritis of knee 09/16/2024 Cervical paraspinous muscle spasm 09/16/2024 Cystitis 09/16/2024 LGSIL on Pap smear of cervix 09/16/2024 Postmenopausal bleeding 09/16/2024 Suprapubic pain 09/16/2024 Intractable 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 aura and without status migrainosus 09/04/2024 Assessment & Plan (09/04/2024 9:45 AM EST): Neuro exam wnl, no JOSHUA red flags Pt has hx of migraines, was receiving a medication from [place], not sure of the name Will start pt on migraine prophylactic therapy: propranolol 20mg BID, reviewed side effects with patient Will f/u in 1 month CTS (carpal tunnel syndrome) 04/29/2024 Health care maintenance 04/28/2024 Transaminitis 04/28/2024 GERD (gastroesophageal reflux disease) Obesity 04/28/2024 Leg mass, left 04/28/2024 Polyarthralgia 01/17/2024 Assessment & Plan (09/04/2024 9:49 AM EST): Will lower gabapentin dose from 800mg at bedtime to 600mg at bedtime d/t daytime drowsiness Will start PA process for Lyrica as patient is open to trying something else if 600mg gabapentin dose is ineffective. Will refer to pain medicine. Will f/u in 1 month on pain and gabapentin efficacy. At this time will consider switching from gabapentin to Lyrica if gabapentin is not effective. PTSD (post-traumatic stress disorder) 12/30/2023 Homelessness 12/30/2023 Left foot pain 12/20/2022 Assessment & Plan (12/20/2022 3:57 PM EDT): XRAY ordered for further assessment Podiatry referral Possible neuropathic pain? I will prescrinbe gabapentin and ibuprofen Chronic pain of left knee 12/20/2022 Assessment & Plan (12/20/2022 3:58 PM EDT): BRISEIDA Ordered today patient to be contacted with results Primary hypertension 11/13/2022 Prediabetes 11/13/2022 Assessment & Plan (09/04/2024 9:44 AM EST): A1c at goal <7 Recommended daily foot checks and diet and exercise Dietary Recommendations: Fruits, vegetables, whole grains, protein foods, and fat-free or low-fat dairy products are healthy choices. Eat different types of protein foods in your diet. This can include seafood, lean meats, poultry, beans, peas, lentils, nuts, seeds, soy products, and eggs. Limit foods and beverages higher in added sugars, saturated fat, and sodium. Exercise Recommendations: At least 150 minutes of moderate-intensity physical activity per week, or an equivalent combination of moderate- and vigorous-intensity activity Mixed hyperlipidemia 11/13/2022 Hypothyroidism 11/13/2022 Generalized anxiety disorder 11/13/2022 MACARIO (obstructive sleep apnea) 11/13/2022 Cervical disc disease 11/13/2022 Constipation 11/13/2022 Encounters Date Type Department Care Team Description 10/07/2024 11:15 AM EST Office Visit [facility] [address] [place] [phone] Blank Gage CNP Polyarthralgia (Primary Dx); Chronic low back pain, unspecified back pain laterality, unspecified whether sciatica present; Intractable 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 aura and without status migrainosus 09/29/2024 Telephone [facility] [address] [place] [phone] Wendy Pang MD Prior Authorization (Zepbound) 09/29/2024 Telephone [facility] [address] [place] [phone] Wendy Pang MD Chart Prep 09/29/2024 Orders Only [facility] [address] [place] [phone] Mychal Raymond MD 09/24/2024 Refill [facility] [address] [place] [phone] Guadalupe Grimes RN 09/14/2024 Refill [facility] [address] [place] [address] Wendy Pang MD Mixed hyperlipidemia 09/04/2024 9:15 AM EST Office Visit [address] [phone] Gage, Peters, SALVAGE INSPECTOR Polyarthralgia (Primary Dx); Type 2 diabetes mellitus without complication, without long-term current use of insulin ([facility]); Intractable 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 aura and without status migrainosus 09/03/2024 Telephone [facility] [address] [place] [phone] Wendy Pang MD Chart Prep 09/03/[address] [phone] Wendy Pang MD Nurse Triage 08/21/2024 Telephone [facility] [address] [place] [phone] Luca Quezada MD 08/14/[address] [address] Wendy Pang MD Nurse Triage 08/14/[address] [phone] Wendy Pang MD Referral 08/13/[address] [phone] Wendy Pang MD 08/06/2024 Patient Outreach [address] [phone] Wedny Pang MD Care Coordination ([facility] outreach for SDOH PT-1 - unable to LVM ) 08/06/[address] [address] Wendy Pang MD PT-1 08/05/[address] [address] Jamila Price MA 08/05/2024 Patient Outreach [facility] [address] [place] [phone] Wendy Pang MD Care Coordination ([facility] outreach for SDOH PT-1 - LVM ) 08/04/2024 Telephone [facility] [address] [place] [address] Wendy Pang MD PT-1 07/28/2024 10:00 AM EST Clinical Support [facility] [place] [address] Hollie Desai RN Primary hypertension 07/28/2024 Travel 07/13/2024 Telephone [facility] [address] [place] [phone] Wendy Pang MD Med Refill from Last 3 Months Immunizations Name Administration Dates Next Due Influenza, seasonal, injectable, preservative fr ee 06/16/2024 Tdap 04/28/2024 Family History Medical History Relation Name Comments Leukemia Maternal Cousin DM2,CAD Mother Coronary artery disease Sister HTN Sister Relation Name Status Comments Maternal Cousin Other Mother Sister Social History Tobacco Use Types Packs/Day Years Used Date Smoking Tobacco: Never Smokeless Tobacco: Never Tobacco Cessation:Counseling Given: Not Answered Alcohol Use Standard Drinks/Week Comments Never 0 (1 standard drink = 0.6 oz pur e alcohol) Depression Answer Date Recorded Patient Health Questionnaire-9 Score 04/28/2024 Patient Health Questionnaire-9 Score 10 04/28/2024 Last PHQ-9: Questionnaire Data Not on file 0 04/28/2024 Housing Stability Answer Date Recorded What is your housing situation today? I do not have housing (Staying with others, in a hotel, in a fpc, living outside on the street, on a [...] Orientation Straight 04/28/2024 1: 15 PM EDT Last Filed Vital Signs Vital Sign Reading Time Taken Comments Blood Pressure 142/82 10/07/2024 11:20 AM EST Pulse 89 10/07/2024 11:20 AM EST Temperature 36.8 ??C (98.2 ??F) 10/07/2024 11:[address] Respiratory Rate 18 10/07/2024 11:20 AM EST Oxygen Saturation 98% 10/07/2024 11:20 AM EST Inhaled Oxygen Concentration - - Weight 100 kg (221 lb 6.4 oz) 10/07/2024 11:20 A M EST Height 157.5 cm (5' 2 ) 06/16/2024 2:28 PM EDT Body Mass Index 40.49 06/16/2024 2:28 PM EDT Plan of Treatment Upcoming Encounters Date Type Department Care Team (Late st Contact Info) Description 10/26/2024 9:00 AM EDT Nurse Only [facility] [address] [place] [address] [phone] 11/20/2024 9:30 AM EDT Office Visit [facility] [address] [place] [address] [phone] Wendy Pang MD [address] [place] [address] Health Maintenance Due Date Last Done Comments CT Colonography 1970 FIT DNA/Cologuard 1970 FIT 1970 FOBT 1970 Sigmoidoscopy 1970 Diabetes: Foot Exam 1980 Eye Exam 1980 Alcohol/Substance Use Screening 1982 Hepatitis B Vaccines (1 of 3 - 19+ 3-dose series) 1989 Pneumococcal Vaccine: 50+ Years (1 of 2 - PCV) 1989 Zoster Vaccines (1 of 2) 2020 Colonoscopy 01/09/2024 Colorectal Cancer Screening 01/09/2024 COVID-19 Vaccine (1 - 2023-2 5 season) 2024 Depression Monitoring (PHQ-9) 10/26/2024, 04/28/2024 Diabetes: Hemoglobin A1C 12/11/2024 024, 12/30/2023 SDOH Screening 01/14/2025 01/15/2024 Cervical Cancer Screening 02/10/2025 HPV/Cotest 02/10/2025 01/09/2024, 01/08/2024, 12/12/2022 Pap Smear 02/10/2025 01/09/2024, 01/08/2024, 12/12/2022 Mammogram 02/26/2025 02/27/2024, 01/21/2023, 01/21/2023 Depression Screening 04/28/2025 04/28/2024, 04/28/2024 Diabetes: Urine Protein Screening 06/12/2025 06/12/2024 Lipid Panel 06/12/2025 06/12/2024 Tobacco Screening 09/25/2025 09/25/2024 DTaP/Tdap/Td Vaccines (2 - T d or Tdap) 04/28/2034 04/28/2024 RSV Patients and Patients Aged 60 years or older (1 - 1-dose 75+ series) 2045 Colposcopy Discontinued 02/11/2024, 01/31/2023, 01/31/2023 HIV Screening Completed 06/12/2024 Hepatitis C Screening Completed 06/12/2024 Influenza Vaccine Completed 06/16/2024 HIB Vaccines Aged Out No longer eligi ble based on patient's age to complete this topic HPV Vaccines Aged Out No longer eligi ble based on patient's age to complete this topic Hepatitis A Vaccines Aged Out No long er eligible based on patient's age to complete this topic IPV Vaccines Aged Out No longer eligi ble based on patient's age to complete this topic Meningococcal Vaccine Aged Out No tammi oliverio eligible based on patient's age to complete this topic RSV under 20 months Aged Out No longe r eligible based on patient's age to complete this topic Rotavirus Vaccines Aged Out No longer eligible based on patient's age to complete this topic Procedures Procedure Name Priority Date/Time Associated Diagnosis Comments XR LUMBAR SPINE COMPLETE 4+ VIEWS Routine 10/08/2024 10:52 AM EST POCT GLUCOSE Routine 09/04/2024 9:24 AM EST Type 2 diabetes mellitus without complication, without long-term current use of insulin ([facility]) ALBUMIN, RANDOM URINE W/CREATININE Routine 06/12/2024 11:40 AM EDT Annual physical exam HEPATITIS C AB W/REFL TO HCV RNA, QN, PCR Routine 06/12/2024 11:39 AM EDT Annual physical exam HIV 1/2 ANTIGEN/ANTIBODY, FOURTH GENERATION W/RFL Routine 06/12/2024 11:39 AM EDT Annual physical exam HEMOGLOBIN A1C Routine 06/12/2024 11:39 AM EDT Annual physical exam LIPID PANEL, STANDARD Routine 06/12/2024 11:39 AM EDT Annual physical exam BI MAMMOGRAM SCREENING TOMOSYNTHESIS BILATERAL Routine 02/27/2024 11:03 AM EDT COLPOSCOPY Routine 02/11/2024 9:20 AM EDT HM PAP/HPV Routine 01/09/2024 9:20 AM EDT from Last 3 Months or Most Recently Relevant to Health Maintenance Results * XR Lumbar Spine Complete 4+ Views (10/08/2024 10:52 AM EST) Anatomical Region Laterality Modality Spine, L-spine Radiographic Jeanine ging 10/08/2024 10:5 2 AM EST Narrative 10/08/2024 11:43 AM EST ?[facility] ?[address] ?[place] [address] ?XRay Report ? Signed ? Patient: Thompsonchriss Durán,Jocelin ?M ?? R#: [id number] ? : 1970 ?Acct:[id number] ? Age/Sex: 54 / F ?ADM Date: 10/08/24 ? Loc: HO.HHCX ? Attending Dr: Blank Gage ENVIRONMENTAL ECONOMIST ? Ordering Physician: Blank Gage ?? Date of Service: 10/08/24 ?? Procedure(s): XR lumbar spine 4V min ?? Accession Number(s): [id number] ? cc: Blank Gage ? EXAMINATION: ?? XR LUMBOSACRAL SPINE ? CLINICAL INFORMATION: ?? lower back pain wiht numbness and tingling in lower extremeties ? COMPARISON: ?? None available. ? TECHNIQUE: ?? 5 views of the lumbar spine including bilateral oblique views. ? FINDINGS: ?? Limited lateral views due to mild obliquity. ? No scoliosis. Normal lordosis. ?? No fracture, compression deformity, or suspicious bone lesion. ?? Grade 1 anterolisthesis L5 on S1 measuring approximately 6 mm. This ?? appears based on degenerative facet changes. ?? There are probable full-thickness L5 pars defects. ?? There is a probable right L4 pars defect. The left appears intact. ? Mild to moderate disc degeneration L5-S1. Mild degeneration L4-5. ?? Facet degeneration L4-S1. ? There are mild degenerative changes in both SI joints. ? XR/XR lumbar spine 4V min ?? IMPRESSION: ?? 1. Suspect grade 1 spondylolisthesis L5 on S1. ?? 2. Suspect right L4 pars defect. ?? 3. Degenerative spondylosis L4-S1. ? Electronically signed by: ??Jose Palacios MD ??10/08/2024 11:40 AM EST RP ? Dictated By: ?Jose Palacios MD ? Signed By: ?<Electronically signed by Jose Palacios MD in OV> ?10/08/24 1140 ? DD/ 1052 ? TD/TT: 10/08/24 1100 ? Tug Master: ? Procedure Note Donotuseinterpreter, Image - 10/08/[address] [address] XRay Report Signed Patient: Jo Auguste R#: [id number] : 1970Acct:[id number] Age/Sex: 54 / FADM Date: 10/08/24 Loc: HO.HHCX Attending Dr: Blank Gage ENVIRONMENTAL ECONOMIST Ordering Physician: Blank Gage Date of Service: 10/08/24 Procedure(s): XR lumbar spine 4V min Accession Number(s): [id number] cc: Blank Gage EXAMINATION: XR LUMBOSACRAL SPINE CLINICAL INFORMATION: lower back pain wiht numbness and tingling in lower extremeties COMPARISON: None available. TECHNIQUE: 5 views of the lumbar spine including bilateral oblique views. FINDINGS: Limited lateral views due to mild obliquity. No scoliosis. Normal lordosis. No fracture, compression deformity, or suspicious bone lesion. Grade 1 anterolisthesis L5 on S1 measuring approximately 6 mm. This appears based on degenerative facet changes. There are probable full-thickness L5 pars defects. There is a probable right L4 pars defect. The left appears intact. Mild to moderate disc degeneration L5-S1. Mild degeneration L4-5. Facet degeneration L4-S1. There are mild degenerative changes in both SI joints. XR/XR lumbar spine 4V min IMPRESSION: 1. Suspect grade 1 spondylolisthesis L5 on S1. 2. Suspect right L4 pars defect. 3. Degenerative spondylosis L4-S1. Electronically signed by: Jose Palacios MD 10/08/2024 11:40 AM EST Dictated By: Jose Palacios MD Signed By: <Electronically signed by Jose Palacios MD in OV> 10/08/24 1140 DD/ 1052 TD/TT: 10/08/24 1100 Tug Master: Blank Gage SALVAGE INSPECTOR IMG XR PROCEDURES Final R esult * POCT Glucose (09/04/2024 9:24 AM EST) Glucose Blood, POC 160 60 - 200 mg/dL QC Media Lot # [id number] Lot# Expiration Date [id number] Blood Capillary blood specimen / Unknown 09/04/2024 9:24 AM EST [facility] POINT OF CARE TEST ENTER/ EDIT ORDERABLES Final Result * Albumin, Random Urine W/Creatinine (06/12/2024 11:40 AM EDT) Creatinine, Urine 195.62 mg/dL [facility] Microalbumin Urine 41.0 mg/L [facility] Microalbum Creatinine Ratio Ur 20.9 <30 ug/mg cr [facility] Comment:Albumin/Creatinine R atio Reference Ranges: Normal: < 30 ug/mg creatinine Microalbuminuria: 30 - 300 ug/mg creatinineClinical Albuminuria: > 300 ug/mg creatinine Urine (Urine, Random) 06/12/2024 11:40 AM EDT 06/12/2024 1:08 PM EDT Result [facility] Wendy Vance MD LAB URINE ORDERAB LES Final Result Performing Organization Address City/[facility]/ZIP Co de Phone Number [facility] [address] [place] [phone] * Hepatitis C Antibody with Reflex to HCV, RNA, Quantitative, Real-Time PCR (06/12/2024 11:39 AM EDT) Hepatitis C Antibody Nonreactive Nonreactive [facility] Comment:Antibodies to HCV no t detected; does not exclude early acuteHCV infection. Blood Venous blood specimen / Unknown 06/12/2024 11:39 AM EDT 06/12/2024 1:19 PM EDT Wendy Vance MD LAB BLOOD ORDERAB LES Final Result [facility] [address] [place] [phone] [phone] * HIV-1/2 Antigen and Antibodies, Fourth Generation, with Reflexes (06/12/2024 11:39 AM EDT) HIV AB/AG Nonreactive Nonreactive [facility] Comment:HIV-1 p24 Ag and/or HIV-1/HIV-2 Ab not detected.A test result that is nonreactive does not exclude thepossibility of exposure to or infection with HIV-1 and/orHIV-2. Nonreactive results in this assay for individualswith prior exposure to HIV-1 and/or HIV-2 may be due toantigen and antibody levels that are below the limit ofdetection of this assay.The [employer] HIV Ag/Ab Combo assay result andsupplemental assay results should be interpreted inconjunction with the patient's clinical presentation,history and other laboratory results. If the results areinconsistent with clinical evidence, additional testing issuggested to confirm the result. Blood Venous blood specimen / Unknown 06/12/2024 11:39 AM EDT 06/12/2024 1:19 PM EDT us Wendy Vance MD LAB BLOOD ORDERAB LES Final Result [facility] [address] [place] [phone] [phone] * Hemoglobin A1c (06/12/2024 11:39 AM EDT) Hemoglobin A1c 5.7 <6.0 % [facility] Comment:Hemoglobin A1C Refer ence Range Adults: 4.8 - 6.0 % Non diabetic: < 6.0 % Goal: < 7.0 %Additional Action Suggested: > 8.0 %Note: Hemoglobin A1c results are invalid for patients with abnormal amounts of HbF. Blood transfusions may impact the HbA1c concentration in the patient sample. Estimated Average Glucose 117 mg/dL [facility] Comment:eAG = Estimated ave rage glucose which is %A1C expressed asaverage glucose, using the formula of the A5D-OilzktjBjcpnrv Glucose study (ADAG), Diabetes Care, Vol.31,#8,2007 Blood Venous blood specimen / Unknown 06/12/2024 11:39 AM EDT 06/12/2024 1:19 PM EDT us Wendy Vance MD LAB BLOOD ORDERAB LES Final Result Performing Organization Address [facility]/ZIP Co de Phone Number [facility] [address] [place] [phone] * (ABNORMAL) Lipid Panel, Standard (06/12/2024 11:39 AM EDT) Triglycerides 113 <150 mg/dL [facility] Comment:Desirable Triglyceri de: less than 150 mg/dLBorderline High Triglyceride 150-199 mg/dLHigh Triglyceride: 200-499 mg/dLVery High Triglyceride: greater than or equal to 5OO mg/dL Cholesterol 232(H) <200 mg/dL [facility] Comment:Desirable Cholestero l: less than 200 mg/dLBorderline High Cholesterol: 200-239 mg/dLHigh Cholesterol: greater than 239 mg/dL LDL Cholesterol Calculated 155(H) <100 mg/dL [facility] Comment:Desirable LDL: less than 100 mg/dLNear Optimal/Above Optimal LDL: 110- 129 mg/dLBorderline High LDL: 130-159 mg/dLHigh LDL: 160-189 mg/dLVery High LDL: greater than or equal to 190 mg/dL HDL Cholesterol 55 >40 mg/dL [facility] Comment:Desirable HDL: great er than 40 mg/dL Note: This HDL assay may give artificially low results in patients with liver disease. Blood Venous blood specimen / Unknown 06/12/2024 11:39 AM EDT 06/12/2024 1:19 PM EDT us Wendy Vance MD LAB BLOOD ORDERAB LES Final Result Performing Organization Address [facility]/ZIP Co de Phone Number [facility] [address] [place] [phone] * BI Mammogram Screening Tomosynthesis Bilateral (02/27/2024 11:03 AM EDT) Anatomical Region Laterality Modality Breast Bilateral Mammography 02/27/2024 11:0 3 AM EDT Narrative 03/23/2024 10:37 PM EDT ? [facility] ? [address] ?[place] [address] ? Mammography Report ? Signed ? Patient: Jocelin Auguste ?M ?? R#: [id number] ? : 1970 ?Acct:[id number] ? Age/Sex: 53 / F ?ADM Date: 02/27/24 ? Loc: HO.MAMMO ? Attending Dr: Ronni Bautista MD ? Ordering Physician: Ronni Bautista MD ?Results: 1Negativ ?? e ? Date of Service: 02/27/24 ?Follow Up: 1 Year From Orig ?? inal Mammogram ? Procedure(s): MM tomosynthesis screening BI ?? Accession Number(s): [id number] ? cc: Wendy Pang MD; Ronni Bautista MD ? EXAMINATION: ?? MM SCREENING DIGITAL BREAST TOMOSYNTHESIS, BILATERAL ? CLINICAL INFORMATION: ? Screening. Asymptomatic. ? COMPARISON: ?? Mammography: This study is compared with prior exams dating back to ?? 2022. ? TECHNIQUE: ?? Digital breast tomosynthesis is performed in both the craniocaudal and ?? mediolateral oblique views along with computer-aided detection (CAD). ?? Synthesized 2D images are generated from the tomosynthesis. ? FINDINGS: ?? There are scattered areas of fibroglandular density (ACR BI-RADS breast ?? composition Category b). ? There are no significant masses, abnormal calcifications, or other ?? abnormalities. ? MM/MM tomosynthesis screening BI ?? IMPRESSION: ?? No mammographic evidence of malignancy. ? ASSESSMENT: ? BI-RADS BI-RADS 1 - Negative ? RECOMMENDATION: ?? Routine annual mammography screening. ? 1 year F/U ? This examination should not preclude the clinical evaluation of a ?? suspicious palpable abnormality. ? This patient's information was entered into a reminder system with a ?? target due date for their next mammogram. ? Dictated By: ?Lexie Silva MD ? Signed By: ?<Electronically signed by Lexie Silva MD in OV> ? 03/23/242232 ? DD/ 1103 ? TD/TT: ? Tug Master: ? Procedure Note Syed, Carline - 03/23/2024 [place] [facility] [address] [place] [address] Mammography Report Signed Patient: Jo Auguste R#: [id number] : 1970Acct:[id number] Age/Sex: 53 / FADM Date: 02/27/24 Loc: [facility] Attending Dr: Ronni Bautista MD Ordering Physician: Ronni Bautistaesults: 1Negativ e Date of Service: 02/27/24Follow Up: 1 Year From Orig inal Mammogram Procedure(s): MM tomosynthesis screening BI Accession Number(s): [id number] cc: Wendy Pang MD; Ronni Bautista MD EXAMINATION: MM SCREENING DIGITAL BREAST TOMOSYNTHESIS, BILATERAL CLINICAL INFORMATION: Screening. Asymptomatic. COMPARISON: Mammography: This study is compared with prior exams dating back to 2022. TECHNIQUE: Digital breast tomosynthesis is performed in both the craniocaudal and mediolateral oblique views along with computer-aided detection (CAD). Synthesized 2D images are generated from the tomosynthesis. FINDINGS: There are scattered areas of fibroglandular density (ACR BI-RADS breast composition Category b). There are no significant masses, abnormal calcifications, or other abnormalities. MM/MM tomosynthesis screening BI IMPRESSION: No mammographic evidence of malignancy. ASSESSMENT: BI-RADS BI-RADS 1 - Negative RECOMMENDATION: Routine annual mammography screening. 1 year F/U This examination should not preclude the clinical evaluation of a suspicious palpable abnormality. This patient's information was entered into a reminder system with a target due date for their next mammogram. Dictated By: Lexie Silva MD Signed By: <Electronically signed by Lexie Silva MD in OV> 03/23/24 2233 DD/ 1103 TD/TT: Tug Master: [facility] External Provider IMG BI PROCEDURES Final Result * Colposcopy (02/11/2024 9:20 AM EDT) Historical Provider IN CLINIC/BEDSIDE ORDERAB LES Edited Result - Final * (ABNORMAL) HM PAP/HPV (01/09/2024 9:20 AM EDT) Pap Smear 1. NILM 1. NILM HPV Detected(A ) Undetected, Indeterminate , Quantitative, Not Detected Historical Provider HEALTH MAINTENANCE Edited Result - Final from Last 3 Months or Most Recently Relevant to Health Maintenance Insurance [address] [place], [place] [address]Seakeeper C3 Care Teams Engagement Executive Relationship Specialty Start Date End Date Wendy Pang MD [address] [place] [phone] PCP - General Internal Medicine 02/23/23
--- OUTSIDE RECORDS SUMMARY | 2024-10-08 12:02 | XMS_ITS | Encounter Summary ---
Author Organization [employer] Address 75 [facility] 7t [place] [address] Care Team Providers Care Technical Service Engineer Name Role Phone Wendy Pang MD Primary Care Pro vider Reason for Referral * Consultation (Routine) - Pending Review Specialty Diagnoses / Procedures Referred By Hawk pruitt Referred To Contact Physical Therapy Diagnoses Chronic low back pain, unspecified back pain laterality, unspecified whether sciatica present Blank Gage CNP [address] [place] [address] Phone: tel: fax: Referral ID Status Reason Start Date Expiration Date Visits Requested Visits Authorized [id number] Pending Review Specialty Services Required 10/07/2024 10/07/2025 1 1 * Consultation (Routine) - Pending Review Specialty Diagnoses / Procedures Referred By Hawk pruitt Referred To Contact Pain Medicine Diagnoses Polyarthralgia Blank Gage CNP [address] [place] [address] Phone: tel: fax: Referral ID Status Reason Start Date Expiration Date Visits Requested Visits Authorized [id number] Pending Review Specialty Services Required 10/07/2024 10/07/2025 1 1 Reason for Visit * Reason Comments Follow-up Encounter Details Date Type Department Care Team (Latest Contact Info) Description 10/07/2024 11:15 AM EST Office Visit [facility] [address] [place] [address] Blank Gage CNP [address] [place] [address] Polyarthralgia (Primary Dx); Chronic low back pain, unspecified back pain laterality, unspecified whether sciatica present; Intractable 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 aura and without status migrainosus Social History Tobacco Use Types Packs/Day Years [...] with others, in a hotel, in a half-way, living outside on the street, on a [...] PM EDT documented as of this encounter Last Filed Vital Signs Vital Sign Reading [...] oz) 10/07/2024 11:20 A M EST Height - - Body Mass Index 40.49 06/16/2024 2:28 PM EDT documented in this encounter Plan of Treatment Upcoming Encounters Date Type Department Care Team (Late st Contact Info) Description 10/26/2024 9:00 AM EDT Nurse Only [facility] [address] [place] [address] 11/20/2024 9:30 AM EDT Office Visit [facility] [address] [place] [address] [phone] Wendy Pang MD [address] [place] [phone] Scheduled Referrals Name Type Priority Associated Diagnoses Orde r Schedule Referral to Pain Medicine Outpatient Referral Routine Polyarthralgia Expected: 10/07/2024 (Approximate), Expires: 10/07/2025 Referral to Physical Therapy Outpatient Referral Routine Chronic low back pain, unspecified back pain laterality, unspecified whether sciatica present Expected: 10/07/2024 (Approximate), Expires: 10/07/2025 documented as of this encounter Procedures Procedure Name Priority Date/Time Associated Diagnosis Comments XR LUMBAR SPINE COMPLETE 4+ VIEWS Routine 10/08/2024 10:52 AM EST documented in this encounter Results * XR Lumbar Spine Complete 4+ Views (10/08/2024 10:52 AM EST) Anatomical Region Laterality Modality Spine, L-spine Radiographic Jeanine ging 10/08/2024 10:5 2 AM EST Narrative 10/08/2024 11:43 AM EST ?[facility] ?[address] ?[place] [address] ?XRay Report ? Signed ? Patient: ThompsonJocelin Davis ?M ?? R#: [id number] ? : 1970 ?Acct:[id number] ? Age/Sex: 54 / F ?ADM Date: 10/08/24 ? Loc: HO.HHCX ? Attending Dr: Blank Gage [employer] ? Ordering Physician: Blank Gage ?? Date of Service: 10/08/24 ?? Procedure(s): XR lumbar spine 4V min ?? Accession Number(s): [id number] ? cc: Blank Gage ? EXAMINATION: ?? [...] DD/ 1052 ? TD/TT: 10/08/24 1100 ? Risk Mgr: ? Procedure Note Syed, Image - 10/08/[address] [address] XRay Report Signed Patient: Jo Auguste R#: [id number] : 1970Acct:[id number] Age/Sex: 54 / FADM Date: 10/08/24 Loc: HO.HHCX Attending Dr: Blank Gage [employer] Ordering Physician: Blank Gage Date of Service: 10/08/24 Procedure(s): XR lumbar spine 4V min Accession Number(s): [id number] cc: Blank Gage EXAMINATION: XR LUMBOSACRAL SPINE [...] by: Jose Palacios MD 10/08/2024 11:40 AM [facility] Dictated By: Jose Palacios MD Signed By: <Electronically signed by Jose Palacios MD in OV> 10/08/24 1140 DD/ 1052 TD/TT: 10/08/24 1100 Risk Mgr: Blank Gage ELECTRICAL ENGINE[employer] MEP IMG XR PROCEDURES Final R esult documented in this encounter Visit Diagnoses Diagnosis Polyarthralgia- Primary Pain in joint, multiple sites Chronic low back pain, unspecified back pain laterality, unspecified whether sciatica present Intractable 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 aura and without status migrainosus documented in this encounter Additional Health Concerns Assessment Noted Time PHQ-9 Depression Total Score: 10 024 1:15 PM EDT documented as of this encounter Care Teams Technical Service Engineer Relationship Specialty Start Date End Date Wendy Pang MD [address] [place] [address] PCP - General Internal Medicine 02/23/23 documented as of this encounter
--- OUTSIDE RECORDS SUMMARY | 2024-10-08 12:02 | XMS_ITS | Encounter Summary ---
Author Organization [employer] Address 75 [facility] 7t [place] [address] Care Team Providers Care Cannery Worker Name Role Phone Wendy Pang MD Primary Care Pro vider Reason for Visit * Reason Onset Date Comments Durable Medical Equipment 06/23/2024 Prior Authorization 06/23/2024 Encounter Details Date Type Department Care Team ([facility] st Contact Info) Description 06/23/[address] [facility] [address] [place] [address] Wendy Pang MD [address] [place] [address] Durable Medical Equipment; Prior Authorization Social History Tobacco Use Types Packs/Day Years [...] with others, in a hotel, in a retirement, living outside on the street, on a [...] * Telephone Encounter - Chad Kim - 06/23/2024 9:59 AM EST Tc from pt requesting status on brace for wrist as well as the status for 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 Please contract pt at [phone]. (Guatemalan Speaker) documented in this encounter Plan of Treatment Upcoming Encounters Date Type Department Care Team (Late st Contact Info) Description 10/26/2024 9:00 AM EDT Nurse Only [facility] [address] [place] [address] 11/20/2024 9:30 AM EDT Office Visit [facility] [address] [place] [address] Wendy Pang MD [address] [place] [address] documented as of this encounter Visit Diagnoses Not on filedocumented in this encounter Additional Health Concerns Assessment Noted Time PHQ-9 Depression Total Score: 10 024 1:15 PM EDT documented as of this encounter Care Teams Cannery Worker Relationship Specialty Start Date End Date Wendy Pang MD [address] [place] [address] PCP - General Internal Medicine 02/23/23 documented as of this encounter
--- OUTSIDE RECORDS SUMMARY | 2024-10-08 12:03 | XMS_ITS | Encounter Summary ---
Author Organization [employer] Address 75 [facility] 7t [place] [address] Care Team Providers Care Medical Assistant Secretary Name Role Phone Wendy Pang MD Primary Care Pro vider Reason for Visit * Reason Onset Date Comments NTTS 09/24/2024 Encounter Details Date Type Department Care Team ([facility] st Contact Info) Description 09/24/2024 Refill [facility] [address] [place], [place] [phone] Guadalupe Grimes RN [address] [place] [address] Social History Tobacco Use Types Packs/Day Years [...] with others, in a hotel, in a long term, living outside on the street, on a [...] encounter Miscellaneous Notes * Telephone Encounter - CASE Partida - 09/25/2024 12:46 PM EST Have made a note in chart with relevant info and asked PA specialist to initiate PA for Zepbound * Addendum Note - Guadalupe Grimes RN - 09/25/2024 11:56 AM ESTAddended by: GUADALUPE GRIMES on: 09/25/2024 11:56 AM Modules accepted: Orders * Telephone Encounter - Guadalupe Grimes RN - 09/25/2024 11:48 AM EST Telephone call returned to pt who reports that she wanted to discuss Wegovy. Reports was told that medication would be changed because insurance no longer covers Wegovy but pharmacy doesn't have anything. Pt hasn't picked up wegovy since 07/28/24 (confirmed with pharmacy) so has been off of it for ~1 month. Phentermine contraindicated d/t anxiety disorder. Informed I would see if we can send Zepbound. If it needs PA, we will work on it. Pt verbalized understanding and denied having any further questions or concerns at this time. * Telephone Encounter - Murtaza Hairston - 09/25/2024 9:43 AM EST TC from pt returning call regarding prior message. Contact pt at [phone] * Telephone Encounter - Guadalupe Grimes RN - 09/24/2024 1:41 PM EST Pt called NTTS 09/18/24 repoting wanting to talk to someone about her prescription. Triage nurse called X2. No answer and v/m not set up. Telephone call placed to pt to check if there is anything she still needs. No answer again and v/m not set up. Pt to call back as needed. documented in this encounter Plan of Treatment Upcoming Encounters Date Type Department Care Team (Late st Contact Info) Description 10/26/2024 9:00 AM EDT Nurse Only [facility] [address] [place] [phone] 11/20/2024 9:30 AM EDT Office Visit [facility] [address] [place] [address] Wendy Pang MD [address] [place] [phone] documented as of this encounter Visit Diagnoses Not on filedocumented in this encounter Additional Health Concerns Assessment Noted Time PHQ-9 Depression Total Score: 10 024 1:15 PM EDT documented as of this encounter Care Teams Medical Assistant Secretary Relationship Specialty Start Date End Date Wendy Pang MD [address] [place] [phone] PCP - General Internal Medicine 02/23/23 documented as of this encounter
--- OUTSIDE RECORDS SUMMARY | 2024-10-08 12:03 | XMS_ITS | Encounter Summary ---
Author Organization [employer] Address 75 [facility] 7t [place] [address] Care Team Providers Care Flitch Hanger Name Role Phone Wendy Martell MD Primary Care Provide r Wendy Pang MD Primary Care Pro vider Encounter Details Date Type Department Care Team (Late st Contact Info) Description 02/18/2023 Orders Only [facility] [address] [place] [address] [phone] Jordana Jose CNM [address] [place] [address] [phone] Social History Tobacco Use Types Packs/Day Years Used Date Smoking Tobacco: Never Smokeless Tobacco: Never Comments No Sex and Gender Information Value Date Recorded Sex Assigned at Female 11/13/2022 9:10 AM EDT Legal Sex Female 1:08 PM EST Gender Identity Female 11/13/2022 9:10 AM EDT Sexual Orientation Straight 04/28/2024 1: 15 PM EDT documented as of this encounter Plan of Treatment Upcoming Encounters Date Type Department Care Team (Late st Contact Info) Description 10/26/2024 9:00 AM EDT Nurse Only [facility] [address] [place] [address] [phone] 11/20/2024 9:30 AM EDT Office Visit [facility] [address] [place] [address] [phone] Wendy Pang MD [address] [place] [address] [phone] documented as of this encounter Procedures Procedure Name Priority Date/Time Associated Diagnosis Comments COLPOSCOPY Routine 01/31/2023 12:00 AM EDT documented in this encounter Results * Colposcopy (01/31/2023 12:00 AM EDT) us Ronni Bautista MD IN CLINIC/BEDSIDE ORDERABLES Fin al Result [facility] [address] [place] [phone] [phone] documented in this encounter Visit Diagnoses Not on filedocumented in this encounter Care Teams Flitch Hanger Relationship Specialty Start Date End Date Wendy Martell MD [address] [place] [address] PCP - General Internal Medicine 11/22/22 02/22/23 Wendy Pang MD [address] [place] [address] PCP - General Internal Medicine 02/23/23 documented as of this encounter
--- OUTSIDE RECORDS SUMMARY | 2024-10-08 12:03 | XMS_ITS | Encounter Summary ---
Author Organization [employer] Address 75 [facility] 7t [place] [address] Care Team Providers Care Cigar Wrapper Tender Automatic Name Role Phone Wendy Pang MD Primary Care Pro vider Reason for Visit * Reason Onset Date Comments Nurse Triage 03/11/2023 Encounter Details Date Type Department Care Team ([facility] st Contact Info) Description 03/11/2023 Telephone [facility] [address] [place] [address] Wendy Pang MD [address] [place] [address] Nurse Triage Social History Tobacco Use Types Packs/Day Years [...] encounter Miscellaneous Notes * Telephone Encounter - Beryl Schuster RN - 03/14/2023 11:06 AM EDT Triage call with [employer] Department Operations Manager ID [id number]. Pt was triaged 03/11/23 and advised to come to [facility] to be seen but, didn't go. Pt reports doesn't want to go to [facility] because, I have too many issues Carol only want my doctor . Pt is offered 300pm apt with Dr. Villegas today but, reports no transportation. Advised Pt has 04/18/23 apt for transfer [address] Dr. Jama Vance and Pt reports my friend said thereare many apts open with Dr. Yun earlier than that and I want to go 03/25. . Artificial Flower Maker looked at schedule for that day and no available apts for transfer Pt seen. Phone connection very poor. Call was dropped 3 times during this conversation. Advised Pt to come to [facility] today or tomorrow. Hours given opentill 4pm and opens at 830am in the morning. Call dropped again. Protocol Used: No Contact or Duplicate Contact Call (Adult) Protocol-Based Disposition: No Contact Call Positive Triage Question: * Unable to complete triage due to phone connection issues * All higher-acuity triage questions were negative * Telephone Encounter - Khai Stephenson - 03/14/2023 10:08 AM EDT Tc from pt returning triage, states still has severe pain. Please contact at [phone] * Telephone Encounter - Beryl Schuster RN - 03/11/2023 1:25 PM EDT Triage call with [employer] Department Operations Manager [place] [id number] Pt reports shoulder, neck, middle to low back pain. Pt reports left foot almost gave out and Pt almost fell so Pt has someone walk with her all the time. Pt has suffered loss of mother and other family problems causing the increase of the pain. Pt is not finding effective pain relief and wants to see provider. Advised to come to [facility] today to be seen and Pt agreed. Home care reviewed. Protocol Used: Shoulder Pain (Adult) Protocol-Based Disposition: See in Office or Video Visit Today or Tomorrow Video visit not offered Positive Triage Question: * Patient wants to be seen * All higher-acuity triage questions were negative Care Advice Discussed: * Reassurance and Education - Shoulder Pain * Pain Medicines * Pain Medicines - Extra Notes and Warnings * Reasons To Call Back - Chest pain or difficulty breathing occurs - Moderate pain (e.g., interferes with normal activities) lasts over 3 days - Mild pain lasts over 7 days - You become worse * Use a Cold Pack for Pain * Use Heat on Area After 48 Hours * Telephone Encounter - Vincent Lim - 03/11/2023 12:52 PM EDT Symptom: Shoulder Pain - Not From Injury Outcome: Schedule an urgent appointment (within 1 hour) or talk to a nurse or provider soon Reason: Severe pain now The caller accepted this outcome Please contact pt at [phone] Sri Lankan Speaker documented in this encounter Plan of Treatment Upcoming Encounters Date Type Department Care Team (Late st Contact Info) Description 10/26/2024 9:00 AM EDT Nurse Only [facility] [address] [place] [phone] 11/20/2024 9:30 AM EDT Office Visit [facility] [address] [place] [address] Wendy Pang MD [address] [place] [phone] documented as of this encounter Visit Diagnoses Not on filedocumented in this encounter Care Teams Cigar Wrapper Tender Automatic Relationship Specialty Start Date End Date Wendy Pang MD [address] [place] [address] PCP - General Internal Medicine 02/23/23 documented as of this encounter
--- OUTSIDE RECORDS SUMMARY | 2024-10-08 12:03 | XMS_ITS | Encounter Summary ---
Author Organization [employer] Address 75 [facility] 7t [place] [address] Care Team Providers Care Automatic Bow Maker Machine Tender Name Role Phone Wendy Pang MD Primary Care Pro vider Reason for Visit * Reason Onset Date Comments Med Refill 07/13/2024 Encounter Details Date Type Department Care Team ([facility] st Contact Info) Description 07/13/2024 Telephone [facility] [address] [place] [address] Wendy Pang MD [address] [place] [address] Med Refill Social History Tobacco Use Types Packs/Day Years [...] with others, in a hotel, in a care home, living outside on the street, on a [...] encounter Miscellaneous Notes * Telephone Encounter - Arlene Armando LPN - 07/13/2024 11:39 AM EST Medication was sent to [facility] on 06/16/24 0.25 mg dose and 0.5 mg. * Telephone Encounter - Chad Kim - 07/13/2024 11:18 AM EST TC from pt requesting medication refill. Medications needing refill: Semaglutide-Weight Management (Wegovy) 0.25 MG/0.5ML solution auto-injector To be sent to: [facility] - [place], [place] - [address] [place] [address] documented in this encounter Plan of Treatment Upcoming Encounters Date Type Department Care Team (Late st Contact Info) Description 10/26/2024 9:00 AM EDT Nurse Only [facility] [address] [place] [address] 11/20/2024 9:30 AM EDT Office Visit [address] [address] Wendy Pang MD [address] [place] [phone] documented as of this encounter Visit Diagnoses Not on filedocumented in this encounter Additional Health Concerns Assessment Noted Time PHQ-9 Depression Total Score: 10 024 1:15 PM EDT documented as of this encounter Care Teams Automatic Bow Maker Machine Tender Relationship Specialty Start Date End Date Wendy Pang MD [address] [place] [address] PCP - General Internal Medicine 02/23/23 documented as of this encounter
--- OUTSIDE RECORDS SUMMARY | 2024-10-08 12:03 | XMS_ITS | Encounter Summary ---
Author Organization [employer] Address 75 [facility] 7t [place] [address] Care Team Providers Care Sports Editor Name Role Phone Wendy Pang MD Primary Care Pro vider Reason for Visit * Reason Onset Date Comments Chart Prep 09/29/2024 Encounter Details Date Type Department Care Team ([facility] st Contact Info) Description 09/29/2024 Telephone [facility] [address] [place] [address] Wendy Pang MD [address] [place] [address] Chart Prep Social History Tobacco Use Types Packs/Day Years [...] with others, in a hotel, in a intermediate, living outside on the street, on a [...] encounter Miscellaneous Notes * Telephone Encounter - Juan eCdeno MA - 09/29/2024 10:12 AM EST Chart Prep Labs: not applicable Images: not applicable Vaccines due: yes Hep B PCV Zoster Covid Referrals: pending appt Screenings: mammogram , pap smear , Foot Exam, Colorectal Cancer Overdue care gaps: A1C, Glucose, Sbirt, PHQ-9, SHYLA-7 documented in this encounter Plan of Treatment Upcoming Encounters Date Type Department Care Team (Late st Contact Info) Description 10/26/2024 9:00 AM EDT Nurse Only [facility] [address] [place] [address] 11/20/2024 9:30 AM EDT Office Visit [facility] [address] [place] [address] Wendy Pang MD [address] [place] [phone] documented as of this encounter Visit Diagnoses Not on filedocumented in this encounter Additional Health Concerns Assessment Noted Time PHQ-9 Depression Total Score: 10 024 1:15 PM EDT documented as of this encounter Care Teams Sports Editor Relationship Specialty Start Date End Date Wendy Pang MD [address] [place] [phone] PCP - General Internal Medicine 02/23/23 documented as of this encounter
--- OUTSIDE RECORDS SUMMARY | 2024-10-08 12:03 | XMS_ITS ---
Author Organization [facility] enter Address [address] [place] [address] Care Team Providers Care Ergonomist Name Role Phone Michael Muller Primary Care Provider [phone] REASON FOR VISIT 2 Month F/u IP Medications Medication SIG (Take, Route, Frequency, Duration) Notes Start Date End Date Status Gabapentin 100 MG 3 capsule Orally tid [...] bid prn for 10 day(s) 06/04/2023 Active Albuterol Sulfate HFA 108 (90 Base) MCG/ACT 2 puffs orally as needed Inhalation every 4 hrs as needed for 60 days 08/06/2023 Active Atorvastatin Calcium 10 MG 1 tablet [...] a day for 30 day(s) 04/18/2023 Active Fioricet 50-300-40 MG 1 capsule as neede d Orally every 4 hrs Active Sertraline HCl 25 MG 1 tablet Orally Onc e a day Active Encounters Encounter Location Date Provider Diagnosis [facility] [address] [place] [address] 10/08/2023 Michael Muller Sleep apnea, unspeci fied type G47.30 ; Hyperlipidemia, unspecified hyperlipidemia type E78.5 ; Cervicalgia M54.2 and History of asthma Z87.09 Assessments Encounter Date Diagnosis (ICD Code) Assessment Notes Treatment Notes Treatment Clinical Notes Section Notes 10/08/2023 Sleep apnea, unspecified type (ICD-10 - G47.30) 10/08/2023 Hyperlipidemia, unspecified hyperlipidemia type (ICD-10 - E78.5) 10/08/2023 Cervicalgia (ICD-10 - M54.2) 10/08/2023 History of asthma (ICD-10 - Z87.09) Plan Of Treatment No Information Progress Notes * Carmen MACKEY B:1970 (54 yo F)Acc No.[id number]:10/08/2023 Progress Note Patient:?MALIHA GALDAMEZ Jocelin Provider:?Michael Muller MD :1970???Age:53 Y???Sex:Female D ate:10/08/2023 Address:[address] [place] [address] Subjective: * Chief Complaints: * ???1. 2 Month F/u IP. * Medical History:? * Ocular Surgical History:? * Medications:?Taking Fioricet 50-300-40 MG Capsule 1 capsule as needed Orally every 4 hrs , Taking Sertraline HCl 25 MG Tablet 1 tablet Orally Once a day , Taking Atorvastatin Calcium 10 MG Tablet 1 tablet Orally Once a day , Taking Singulair 10 MG Tablet 1 tablet Orally Once a day , Taking Baclofen 10 MG Tablet 1 tablet as needed Orally Twice a day , Taking Losartan Potassium 100 MG Tablet 1 tablet Orally Once a day , Taking metFORMIN HCl ER 500 MG Tablet Extended Release 24 Hour 1 tablet with evening meal Orally Once a day , Taking Gabapentin 100 MG Capsule 3 capsule Orally tid , Taking Synthroid 88 MCG Tablet 1 tablet in the morning on an empty stomach Orally Once a day , Taking Naproxen 500 MG Tablet 1 tablet with food or milk as needed Orally every 12 hrs prn , Taking Acetic Acid 2 % Solution 5 drops into affected ear Otic bid prn , Taking Albuterol Sulfate HFA 108 (90 Base) MCG/ACT Aerosol Solution 2 puffs orally as needed Inhalation every 4 hrs as needed * Implants:? Objective: * Vitals:? Assessment: * Assessment: 1.?Sleep apnea, unspecified type - G47.30???2.?Hyperlipidemia, unspecified hyperlipidemia type - E78.5???3.?Cervicalgia - M54.2???4.?History of asthma - Z87.09??? Plan: * Treatment: * Images: Billing Information: * Visit Code:? * Procedure Codes:? * Electronic signature of Cristina Muller MD on 10/08/2024 at 12:02 PM EST Sign off status: Pending * Provider:?Michael Muller MD Date:? 024 Generated for Benitez santana/Parminder/Rodriguezitting on:?10/08/2024 12:02 PM EST
--- OUTSIDE RECORDS SUMMARY | 2024-10-08 12:03 | XMS_ITS | Encounter Summary ---
Author Organization [employer] Address [address] [facility] 7t [place] [address] Care Team Providers Care Plate Painter Name Role Phone Wendy Pang MD Primary Care Pro vider Reason for Visit * Reason Onset Date Comments Med Refill 09/14/2024 Encounter Details Date Type Department Care Team (Late st Contact Info) Description 09/14/[address] [facility] [address] [place], [place] [phone] Wendy Pang MD [address] [place] [address] Mixed hyperlipidemia Social History Tobacco Use Types Packs/Day Years [...] with others, in a hotel, in a fdc, living outside on the street, on a [...] Telephone Encounter - Arlene Armando LPN - 09/14/2024 2:03 PM EST PCP off. Next appointment 10/07/24. documented in this encounter Plan of Treatment Upcoming Encounters Date Type Department Care Team (Late st Contact Info) Description 10/26/2024 9:00 AM EDT Nurse Only [facility] [address] [place] [address] 11/20/2024 9:30 AM EDT Office Visit [facility] [address] [place] [phone] Wendy Pang MD [address] [place] [address] documented as of this encounter Visit Diagnoses Diagnosis Mixed hyperlipidemia documented in this encounter Additional Health Concerns Assessment Noted Time PHQ-9 Depression Total Score: 10 024 1:15 PM EDT documented as of this encounter Care Teams Plate Painter Relationship Specialty Start Date End Date Wendy Pang MD [address] [place] [phone] PCP - General Internal Medicine 02/23/23 documented as of this encounter
--- OUTSIDE RECORDS SUMMARY | 2024-10-08 12:03 | XMS_ITS | Encounter Summary ---
Author Organization [employer] Address [address] [facility] 7t [place] [address] Care Team Providers Care Geology Technician Name Role Phone Wendy Pang MD Primary Care Pro vider Reason for Visit * Reason Onset Date Comments PT-1 08/04/2024 Encounter Details Date Type Department Care Team ([facility] st Contact Info) Description 08/04/2024 Telephone [facility] [address] [place] [address] Wendy Pang MD [address] [place] [address] PT-1 Social History Tobacco Use Types Packs/Day Years [...] with others, in a hotel, in a [facility], living outside on the street, on a [...] encounter Miscellaneous Notes * Telephone Encounter - Ruiz Cedeno - 08/04/2024 4:23 PM EST Patient calling requesting PT1 Home Address verified: Y/N: Yes Provider name or facility name: Wendy Vance Escort needed: NO Do you have a wheelchair: Y/N: No If yes- Manual or electric: no Visits: (4) ( monthly) documented in this encounter Plan of Treatment Upcoming Encounters Date Type Department Care Team (Late st Contact Info) Description 10/26/2024 9:00 AM EDT Nurse Only [facility] [address] [place] [address] 11/20/2024 9:30 AM EDT Office Visit [facility] [address] [place] [phone] Wendy Pang MD [address] [place] [address] documented as of this encounter Visit Diagnoses Not on filedocumented in this encounter Additional Health Concerns Assessment Noted Time PHQ-9 Depression Total Score: 10 024 1:15 PM EDT documented as of this encounter Care Teams Geology Technician Relationship Specialty Start Date End Date Wendy Pang MD [address] [place] [phone] PCP - General Internal Medicine 02/23/23 documented as of this encounter
--- OUTSIDE RECORDS SUMMARY | 2024-10-08 12:03 | XMS_ITS | Encounter Summary ---
Author Organization [employer] Address [address] [facility] 7t [place] [address] Care Team Providers Care Web Site Designer Name Role Phone Wendy Pang MD Primary Care Pro vider Encounter Details Date Type Department Care Team (Late st Contact Info) Description 08/13/2024 Telephone [facility] [address] [place], [place] [phone] Wendy Pang MD [address] [place] [address] Social History Tobacco Use Types Packs/Day Years [...] with others, in a hotel, in a [place] [facility], living outside on the street, on a [...] encounter Miscellaneous Notes * Telephone Encounter - Digna Valerio - 08/13/2024 9:42 AM EST error documented in this encounter Plan of Treatment Upcoming Encounters Date Type Department Care Team (Late st Contact Info) Description 10/26/2024 9:00 AM EDT Nurse Only [facility] [address] [place] [phone] 11/20/2024 9:30 AM EDT Office Visit [facility] [address] [place] [address] Wendy Pang MD [address] [place] [address] documented as of this encounter Visit Diagnoses Not on filedocumented in this encounter Additional Health Concerns Assessment Noted Time PHQ-9 Depression Total Score: 10 024 1:15 PM EDT documented as of this encounter Care Teams Web Site Designer Relationship Specialty Start Date End Date Wendy Pang MD [address] [place] [phone] PCP - General Internal Medicine 02/23/23 documented as of this encounter
--- OUTSIDE RECORDS SUMMARY | 2024-10-08 12:03 | XMS_ITS | Encounter Summary ---
Author Organization [employer] Address [address] [facility] 7t [place] [address] Care Team Providers Care Wood Bucker Name Role Phone Wendy Pang MD Primary Care Pro vider Reason for Visit * Reason Onset Date Comments Prior Authorization 09/29/2024 Zepbound Encounter Details Date Type Department Care Team ([facility] st Contact Info) Description 09/29/2024 Telephone [facility] [address] [place] [address] Wendy Pang MD [address] [place] [address] Prior Authorization (Zepbound) Social History Tobacco Use Types Packs/Day Years [...] with others, in a hotel, in a jail, living outside on the street, on a [...] encounter Miscellaneous Notes * Telephone Encounter - Natacha Medrano - 10/01/2024 1:31 PM EST PA approval received for Zepbound. Scanned into [employer]. * Telephone Encounter - Natacha Medrano - 09/30/2024 4:03 PM EST PA for Zepbound signed and faxed to [employer]. Confirmation received and sent to scan. If patient calls to check status on above, please advise them to contact Pharmacy . * Telephone Encounter - Natacha Medrano - 09/29/2024 10:30 AM EST PA for Zepbound from [employer] placed on prescriber desk for signature. * Telephone Encounter - Natacha Medrano - 09/29/2024 10:30 AM EST ----- Message from Patria Pappas sent at 09/25/2024 12:46 PM EST ----- Please initiate prescription for Zepbound. Please use PCP note from May and my note here has anaddendum. documented in this encounter Plan of Treatment Upcoming Encounters Date Type Department Care Team (Late st Contact Info) Description 10/26/2024 9:00 AM EDT Nurse Only [facility] [address] [place] [phone] 11/20/2024 9:30 AM EDT Office Visit [address] [address] Wendy Pang MD [address] [place] [phone] documented as of this encounter Visit Diagnoses Not on filedocumented in this encounter Additional Health Concerns Assessment Noted Time PHQ-9 Depression Total Score: 10 024 1:15 PM EDT documented as of this encounter Care Teams Wood Bucker Relationship Specialty Start Date End Date Wendy Pang MD [address] [place] [phone] PCP - General Internal Medicine 02/23/23 documented as of this encounter
--- OUTSIDE RECORDS SUMMARY | 2024-10-08 12:03 | XMS_ITS | Encounter Summary ---
Author Organization [employer] Address [address] [facility] 7t [place] [address] Care Team Providers Care Management Supervisor Name Role Phone Wendy Pang MD Primary Care Pro vider Encounter Details Date Type Department Care Team (Late st Contact Info) Description 09/29/2024 Orders Only [facility] [address] [place], [place] [phone] Provider, MD Mychal Social History Tobacco Use Types Packs/Day Years [...] with others, in a hotel, in a fci, living outside on the street, on a [...] 10/26/2024 9:00 AM EDT Nurse Only [facility] [address] [place] [address] [phone] 11/20/2024 9:30 AM EDT Office Visit [facility] [address] [place] [address] [phone] Wendy Pang MD [address] [place] [address] [phone] documented as of this encounter Procedures Procedure Name Priority Date/Time Associated Diagnosis Comments COLPOSCOPY Routine 02/11/2024 9:20 AM EDT PAP/HPV Routine 01/09/2024 9:20 AM EDT documented in this encounter Results * Colposcopy (02/11/2024 9:20 AM EDT) Historical Provider IN CLINIC/BEDSIDE ORDERAB LES Edited Result - Final * (ABNORMAL) HM PAP/HPV (01/09/2024 9:20 AM EDT) Pap Smear 1. NILM 1. NILM HPV Detected(A ) Undetected, Indeterminate , Quantitative, Not Detected Historical Provider HEALTH MAINTENANCE Edited Result - Final documented in this encounter Visit Diagnoses Not on filedocumented in this encounter Additional Health Concerns Assessment Noted Time PHQ-9 Depression Total Score: 10 024 1:15 PM EDT documented as of this encounter Care Teams Management Supervisor Relationship Specialty Start Date End Date Wendy Pang MD [address] [place] [phone] PCP - General Internal Medicine 02/23/23 documented as of this encounter
--- OUTSIDE RECORDS SUMMARY | 2024-10-08 12:03 | XMS_ITS | Encounter Summary ---
Author Organization [employer] Address [address] [facility] [address] [place] [address] Care Team Providers Care Precision Thread Grinder Operator Name Role Phone Wendy Pang MD Primary Care Pro vider Reason for Referral * Consultation (Routine) - Authorized Specialty Diagnoses / Procedures Referred By Hawk pruitt Referred To Contact Rheumatology Diagnoses Polyarthralgia Blank Gage CNP [address] [place] [address] Phone: tel: fax: [facility] [address] [place] [address] Phone: tel: fax: Referral ID Status Reason Start Date Expiration Date Visits Requested Visits Authorized [id number] Authorized Specialty Services Required 09/04/2024 09/04/2025 6 6 * Consultation (Routine) - Authorized Specialty Diagnoses / Procedures Referred By Hawk pruitt Referred To Contact Pain Medicine Diagnoses Polyarthralgia Blank Gage CNP [address] [place] [address] Phone: tel: fax: Referral ID Status Reason Start Date Expiration Date Visits Requested Visits Authorized [id number] Authorized Specialty Services Required 09/04/2024 09/04/2025 1 1 Reason for Visit * Reason Comments Joint Pain Encounter Details Date Type Department Care Team (Latest Contact Info) Description 09/04/2024 9:15 AM EST Office Visit [facility] [address] [place] [phone] Blank Gage CNP [address] [place] [address] Polyarthralgia (Primary Dx); Type 2 diabetes mellitus without complication, without long-term current use of insulin (CMS/HCC); Intractable 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 aura and without [...] with others, in a hotel, in a ch[facility], living outside on the street, on a [...] Sign Reading Time Taken Comments Blood Pressure 138/88 09/04/2024 9:27 AM EST Pulse 90 09/04/2024 8:53 AM EST Temperature 36.7 ??C (98.1 ??F) 09/04/2024 8:53 AM ES T Respiratory Rate 18 09/04/2024 8:53 AM EST Oxygen Saturation 98% 09/04/2024 8:53 AM EST Inhaled Oxygen Concentration - - Weight 98.3 kg (216 lb 12.8 oz) 09/04/2024 8:53 AM EST Height - - Body Mass Index 39.65 06/16/2024 2:28 PM EDT documented in this encounter Progress Notes * Blank Gage CNP - 09/04/2024 9:15 AM EST Subjective Patient ID: Jocelin Durán is a 54 y.o. female who presents for multiple joint pain worsening. Taking gabapentin which is effective but she is noticing daytime drowsiness. Pt also would like new referral for rheum because she doesn't like the one she is currently seeing at [facility]. Pt also requesting R wrist brace and L knee brace for extra support with mobility. Deniesfever, chills, myalgias. Followed by [facility] Rheumatology for polyarthralgias, fibromyalgia, OA last visit 06/2024. Next visit scheduled for 03/2025. At this time was started on Cymbalta 30 mg with plan to increase up to 60 mg and gabapentin 800mg nightly, previous tx included celebrex as well but that was ineffective. Plan included to incorporate more exercise and focusing on good sleep hygiene. Pertinent Lab values include elevated ESR: 33, elevated LFTs AST 47, ALT 48, elevated CRP 1.97, Rf <13, ROM neg Imaging: L Knee XR 10/2023 FINDINGS: Again seen are tricompartmental degenerative changes most marked in the medial and patellofemoral compartments with narrowing. Some tibial plateau osteophytes are present both medially and laterally. No joint effusion or fracture is seen. C-Spine XR 05/2024 FINDINGS: Normal alignment. No fracture demonstrated. Mild to moderate multilevel degenerative disc disease which is most prominent at C6-C7. Nonsmoker Review of Systems Constitutional: Positive for fatigue. Negative for appetite change, chills, diaphoresis, fever andunexpected weight change. HENT: Negative. Eyes: Negative. Respiratory: Negative for choking, shortness of breath and wheezing. Cardiovascular: Negative for chest pain and palpitations. Gastrointestinal: Negative. Endocrine: Negative. Genitourinary: Negative. Musculoskeletal: Positive for arthralgias, back pain and neck pain. Negative for gait problem, joint swelling, myalgias and neck stiffness. Skin: Negative. Neurological: Negative. Hematological: Negative. Psychiatric/Behavioral: Negative. Objective Visit Vitals BP 138/88 Pulse 90 Temp 98.1 ??F (36.7 ??C) (Oral) Resp 18 Wt 216 lb 12.8 oz (98.3 kg) SpO2 98% BMI 39.65 kg/m?? OB Status Postmenopausal Smoking Status Never BSA 2.07 m?? Physical Exam Constitutional: General: She is not in acute distress. Appearance: Normal appearance. She is not ill-appearing or toxic-appearing. HENT: Head: Normocephalic and atraumatic. Nose: Nose normal. Mouth/Throat: Mouth: Mucous membranes are moist. Pharynx: No oropharyngeal exudate or posterior oropharyngeal erythema. Eyes: General: No scleral icterus. Right eye: No discharge. Left eye: No discharge. Extraocular Movements: Extraocular movements intact. Conjunctiva/sclera: Conjunctivae normal. Pupils: Pupils are equal, round, and reactive to light. Cardiovascular: Rate and Rhythm: Normal rate and regular rhythm. Pulses: Normal pulses. Heart sounds: Normal heart sounds. No murmur heard. No friction rub. No gallop. Pulmonary: Effort: Pulmonary effort is normal. No respiratory distress. Breath sounds: Normal breath sounds. No stridor. No wheezing, rhonchi or rales. Chest: Chest wall: No tenderness. Musculoskeletal: General: No swelling or tenderness. Cervical back: Normal range of motion. Right lower leg: No edema. Left lower leg: No edema. Comments: Tenderness upon palpation of major joints including both shoulders, knees, wrists, neck and lower back. Lymphadenopathy: Cervical: No cervical adenopathy. Skin: General: Skin is warm and dry. Capillary Refill: Capillary refill takes less than 2 seconds. Findings: No bruising or erythema. Neurological: General: No focal deficit present. Mental Status: She is alert and oriented to person, place, and time. Psychiatric: Mood and Affect: Mood normal. Behavior: Behavior normal. Assessment/Plan Problem List Items Addressed This Visit Type 2 diabetes mellitus, without long-term current use of insulin ([facility]) A1c at goal <7 Recommended daily foot checks and diet and exercise Dietary Recommendations: Fruits, vegetables, whole grains, protein foods, and fat-free or low-fat dairy products are healthychoices. Eat different types of protein foods in your diet. This can include seafood, lean meats, poultry, beans, peas, lentils, nuts, seeds, soy products, and eggs. Limit foods and beverages higher in added sugars, saturated fat, and sodium. Exercise Recommendations: At least 150 minutes of moderate-intensity physical activity per week, or an equivalent combinationof moderate- and vigorous-intensity activity Relevant Orders POCT Glucose (Completed) Polyarthralgia - Primary Will lower gabapentin dose from 800mg at [...] to Lyrica if gabapentin is not effective. Relevant Medications gabapentin (Neurontin) 600 MG tablet Other Relevant Orders Referral to Pain Medicine Referral to Rheumatology Intractable 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 aura and without status migrainosus Neuro exam wnl, no JOSHUA red flags Pt has hx of migraines, was receiving a medication from [place], not sure of the name Will start pt on migraine prophylactic therapy: propranolol 20mg BID, reviewed side effects with patient Will f/u in 1 month Relevant Medications propranolol (Inderal) 20 MG tablet Cosigned by Funmilayo Thomas MD at 09/09/2024 12:31 PM EST Associated attestation - Funmilayo Thomas MD - 09/09/2024 12:31 PM EST I discussed this service with the resident which included a review of the patient's medical history, findings on physical exam, diagnosis, and treatment plan. I agree with the assessment and plan. Funmilayo Thomas MD documented in this encounter Miscellaneous Notes * Assessment & Plan Note - Blank Gage CNP - 09/04/2024 9:49 AM EST Associated Problem(s): Polyarthralgia Will lower gabapentin dose from 800mg at [...] to Lyrica if gabapentin is not effective. * Assessment & Plan Note - Blank Gage CNP - 09/04/2024 9:45 AM EST Associated Problem(s): Intractable 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 aura and without status migrainosus Neuro exam wnl, no JOSHUA red flags Pt has hx of migraines, was receiving a medication from [place], not sure of the name Will start pt on migraine prophylactic therapy: propranolol 20mg BID, reviewed side effects with patient Will f/u in 1 month * Assessment & Plan Note - Blank Gage CNP - 09/04/2024 9:44 AM EST Associated Problem(s): Prediabetes A1c at goal <7 Recommended daily foot checks and diet and exercise Dietary Recommendations: Fruits, vegetables, whole grains, protein foods, and fat-free or low-fat dairy products are healthychoices. Eat different types of protein foods in your diet. This can include seafood, lean meats, poultry, beans, peas, lentils, nuts, seeds, soy products, and eggs. Limit foods and beverages higher in added sugars, saturated fat, and sodium. Exercise Recommendations: At least 150 minutes of moderate-intensity physical activity per week, or an equivalent combinationof moderate- and vigorous-intensity activity documented in this encounter Plan of Treatment Upcoming Encounters Date Type Department Care Team (Late st Contact Info) Description 10/26/2024 9:00 AM EDT Nurse Only [facility] [address] [place] [phone] 11/20/2024 9:30 AM EDT Office Visit [facility] [address] [place] [address] [phone] Wendy Pang MD [address] [place] [address] Scheduled Referrals Name Type Priority Associated Diagnoses Order Schedule Referral to Pain Medicine Outpatient Referral Routine Polyarthralgia Expected: 09/04/2024 (Approximate), Expires: 09/03/2025 Referral to Rheumatology Outpatient Referral Routine Polyarthralgia Expected: 09/04/2024 (Approximate), Expires: 09/04/2025 documented as of this encounter Procedures Procedure Name Priority Date/Time Associated Diagnosis Comments POCT GLUCOSE Routine 09/04/2024 9:24 AM EST Type 2 diabetes mellitus without complication, without long-term current use of insulin ([facility]) documented in this encounter Results * POCT Glucose (09/04/2024 9:24 AM EST) Glucose Blood, POC 160 60 - 200 mg/dL QC Media Lot # [id number] Lot# Expiration Date [id number] Blood Capillary blood specimen / Unknown 09/04/2024 9:24 AM EST Blank Gage CNP POINT OF CARE TEST ENTER/ EDIT ORDERABLES Final Result documented in this encounter Visit Diagnoses Diagnosis Polyarthralgia- Primary Pain in joint, multiple sites Type 2 diabetes mellitus without complication, without long-term current use of insulin (CMS/HCC) Intractable 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 aura and without status migrainosus documented in this encounter Additional Health Concerns Assessment Noted Time PHQ-9 Depression Total Score: 10 024 1:15 PM EDT documented as of this encounter Care Teams Precision Thread Grinder Operator Relationship Specialty Start Date End Date Wendy Pang MD [address] [place] [phone] PCP - General Internal Medicine 02/23/23 documented as of this encounter
== END 2024-10-08 10:51 | disposition home or self-care (01) ==
LOC: HO.HHCX 10:50
DX: M54.50 Low back pain, unspecified (principal)
CPT/HCPCS: 72110

== ENCOUNTER → 2024-10-08 10:52 | Outpatient (BNV) | payer MEDICAID, SELFPAY | PROVIDERS: Visit Provider Radiology Diagnostic Radiology | DX: M47.817 Spondylosis without myelopathy or radiculopathy, lumbosacral region (principal) | CPT/HCPCS: 72110 ==

== ENCOUNTER 2024-10-26 10:29 | Outpatient (REF) | payer MEDICAID, SELFPAY ==
[2024-10-26 11:49] LABS: MANUAL DIFF FLAG NO
[2024-10-26 12:20] LABS: Basophils Percent Auto 0.4 % (0-2); Eosinophils Percent Auto 0.4 % (0-4); Hematocrit 43.7 % (37.0-47.0); Imm Gran Abs Auto 0.02 X10*3/uL (0.00-0.03); Imm Gran Pct Auto 0.2 % (0.0-0.4); Lymphocytes Absolute Auto 2.3 X10*3/uL (1.2-4.9); Lymphocytes Percent Auto 27.8 % (20-40); Mean Corpuscular Hemoglobin 30.1 pg (27.0-33.0); Mean Platelet Volume 11.4 fL (9.4-12.3); Monocytes Absolute Auto 0.4 X10*3/uL (0.1-1.2); Neutrophils Absolute Auto 5.5 x10*3/uL (2.0-8.3); Neutrophils Percent Auto 66.2 % (45-73); Platelet Count 191 X10*3/uL (160-400); Red Blood Count 4.65 X10*6/uL (4.20-5.50); Red Cell Distribution Width 14.2 % (11.0-16.0); White Blood Count 8.2 X10*3/uL (4.8-10.8)
[2024-10-26 13:04] LABS: Alanine Aminotransferase 38 U/L (0-31); Albumin Level 4.3 g/dL (3.5-5.0); Alkaline Phosphatase 78 U/L (39-117); Anion Gap 11 (12-20); Aspartate Amino Transferase 45 U/L (5-31); Bilirubin Total 0.5 mg/dL (0.0-1.0); Blood Urea Nitrogen 21 mg/dL (9-16); Calcium 9.1 mg/dL (8.4-10.2); Carbon Dioxide 24 mmol/L (22-29); Chloride 110 mmol/L (96-108); Estimated Glomerular Filt Rate > 60; Glucose Random 86 mg/dL (60-115); Sodium 141 mmol/L (135-145); Total Protein 8.6 g/dL (6.5-8.0)
--- OUTSIDE RECORDS SUMMARY | 2024-10-26 13:13 | XMS_ITS | Encounter Summary ---
Author Organization [employer] Address 75 [facility] 7t [place] [address] Care Team Providers Care Wood Technologist Name Role Phone Wendy Pang MD Primary Care Pro vider Reason for Visit * Reason Onset Date Comments Chart Prep 09/29/2024 Encounter Details Date Type Department Care Team ([facility] st Contact Info) Description 09/29/2024 Telephone [facility] [address] [place] [address] Wendy Pang MD 230 [place] [address] Chart Prep Social History Tobacco Use Types [...] Office Visit [facility] MEDICINE [address] [place] [address] Wendy Pang MD 230 [place] [address] 12/01/2024 11:15 AM EDT Office Visit [facility] OPTOMETRY [address] [place] [address] Magda Calero, OD [address] [place] [address] documented as of this encounter Visit Diagnoses Not on filedocumented in this encounter Additional Health Concerns Assessment Noted Time PHQ-9 Depression Total Score: 10 024 1:15 PM EDT documented as of this encounter Care Teams Wood Technologist Relationship Specialty Start Date End Date Wendy Pang MD [address] [place] [address] PCP - General Internal Medicine 02/23/23 documented as of this encounter
--- OUTSIDE RECORDS SUMMARY | 2024-10-26 13:13 | XMS_ITS | Encounter Summary ---
Author Organization [employer] Address [address] [facility] 7t [place] [address] Care Team Providers Care Service Aide Name Role Phone Wendy Pang MD Primary Care Pro vider Encounter Details Date Type Department Care Team (Late st Contact Info) Description 08/13/2024 Telephone [facility] MEDICINE 230 [place], [place] [phone] Wendy Pang MD [address] [place] [address] Social History Tobacco Use Types Packs/Day Years [...] Description 11/20/2024 9:30 AM EDT Office Visit [facility] MEDICINE [address] [place] [address] Wendy Pang MD [address] [place] [address] 12/01/2024 11:15 AM EDT Office Visit [facility] OPTOMETRY [address] [place] [address] Magda Calero, OD [address] [place] [address] documented as of this encounter Visit Diagnoses Not on filedocumented in this encounter Additional Health Concerns Assessment Noted Time PHQ-9 Depression Total Score: 10 024 1:15 PM EDT documented as of this encounter Care Teams Service Aide Relationship Specialty Start Date End Date Wendy Pang MD [address] [place] [address] PCP - General Internal Medicine 02/23/23 documented as of this encounter
--- OUTSIDE RECORDS SUMMARY | 2024-10-26 13:13 | XMS_ITS | Encounter Summary ---
Author Organization [employer] Address [address] [facility] 7t [place] [address] Care Team Providers Care Sugar Refinery Supervisor Name Role Phone Wendy Pang MD Primary Care Pro vider Reason for Visit * Reason Onset Date Comments Med Refill 07/13/2024 Encounter Details Date Type Department Care Team ([facility] st Contact Info) Description 07/13/2024 Telephone [facility] MEDICINE [address] [place] [address] Wendy Pang MD [address] [place] [address] Med Refill Social History Tobacco Use Types [...] with others, in a hotel, in a residential, living outside on the street, on a [...] 11:39 AM EST Medication was sent to [facility] on 06/16/24 0.25 mg dose and 0.5 mg. * Telephone Encounter - Chad Kim - 07/13/2024 11:18 AM EST TC from pt requesting medication refill. Medications needing refill: Semaglutide-Weight Management (Wegovy) 0.25 MG/0.5ML solution auto-injector To be sent to: [facility] - [place], [place] - [address] [place] [address] documented in this encounter Plan of Treatment Upcoming Encounters Date Type Department Care Team (Late st Contact Info) Description 11/20/2024 9:30 AM EDT Office Visit [facility] MED[facility]INE [address] [place] [address] Wendy Pang MD [address] [place] [address] 12/01/2024 11:15 AM EDT Office Visit [facility] OPTOMETRY [address] [place] [address] Magda Calero, OD [address] [place] [address] documented as of this encounter Visit Diagnoses Not on filedocumented in this encounter Additional Health Concerns Assessment Noted Time PHQ-9 Depression Total Score: 10 024 1:15 PM EDT documented as of this encounter Care Teams Sugar Refinery Supervisor Relationship Specialty Start Date End Date Wendy Pang MD [address] [place] [address] PCP - General Internal Medicine 02/23/23 documented as of this encounter
--- OUTSIDE RECORDS SUMMARY | 2024-10-26 13:13 | XMS_ITS | Encounter Summary ---
Author Organization [employer] Address [address] [facility] 7t [place] [address] Care Team Providers Care Test Deskman Name Role Phone Wendy Pang MD Primary Care Pro vider Reason for Referral * Consultation (Routine) - Closed Specialty Diagnoses / Procedures Referred By Hawk pruitt Referred To Contact Physical Therapy Diagnoses Chronic low back pain, unspecified back pain laterality, unspecified whether sciatica present Blank Gage CNP [address] [place] [address] Phone: tel: fax: [facility] [address] [place] [address] Phone: tel: fax: Referral ID Status Reason Start Date Expiration Date V isits Requested Visits Authorized [id number] Closed Specialty Services Required 10/07/2024 10/07/2025 20 20 * Consultation (Routine) - Authorized Specialty Diagnoses / Procedures Referred By Hawk pruitt Referred To Contact Pain Medicine Diagnoses Polyarthralgia Blank Gage CNP [address] [place] [address] Phone: tel: fax: [address] Phone: tel: fax: Referral ID Status Reason Start Date Expiration Date Visits Requested Visits Authorized [id number] Authorized Specialty Services Required 10/07/2024 10/07/2025 6 6 Reason for Visit * Reason Comments Follow-up Encounter Details Date Type Department Care Team (Latest Contact Info) Description 10/07/2024 11:15 AM EST Office Visit [facility] MEDICINE [address] [place] [address] Blank Gage CNP [address] [place] [address] Polyarthralgia (Primary Dx); Chronic bilateral low back [...] Relevant Orders Referral to Physical Therapy [facility] DRUG ABUSE TECHNICIAN Attestation DRUG ABUSE TECHNICIAN Resident Attestation: Patient was seen and evaluated [...] Description 11/20/2024 9:30 AM EDT Office Visit [facility] MEDICINE [address] [place] [phone] Wendy Pang MD [address] [place] [address] 12/01/2024 11:15 AM EDT Office Visit [facility] OPTOMETRY [address] [facility] [place] [address] Magda Calero, OD [address] [place] [address] Scheduled Referrals Name Type Priority Associated Diagnoses [...] Anatomical Region Laterality Modality Spine, L-spine Radiographic Ejanine ging 10/08/2024 10:5 2 AM EST Narrative 10/08/2024 11:43 AM EST ?[facility] ?[address] [facility] [place]. ?[place] [address] ?XRay Report ? Signed ? Patient: Thompsonkarine Durán,Jocelin ?M ?? R#: [id number] ? : 1970 ?Acct:[id number] ? Age/Sex: 54 / F ?ADM Date: 02/20/25 ? Loc: HO.HHCX ? Attending : Alexxis Gage DRUG ABUSE TECHNICIAN ? Ordering Physician: Blank Gage ?? Date of Service: 10/08/24 ?? Procedure(s): XR lumbar spine 4V min ?? Accession Number(s): [id number] ? cc: Blank Gage ? EXAMINATION: ?? [...] DD/ 1052 ? TD/TT: 10/08/24 1100 ? Chief Medical Technologist: ? Procedure Note Syed, Image - 10/08/[address] [address] XRay Report Signed Patient: Jo Auguste R#: [id number] : 1970Acct:[id number] Age/Sex: 54 / FADM Date: 10/08/24 Loc: HO.HHCX Attending Dr: Blank Gage DRUG ABUSE TECHNICIAN Ordering Physician: Blank Gage Date of Service: 10/08/24 Procedure(s): XR lumbar spine 4V min Accession Number(s): [id number] cc: Blank Gage EXAMINATION: XR LUMBOSACRAL SPINE [...] by: Jose Palacios MD 10/08/2024 11:40 AM [facility] Dictated By: Jose Palacios MD Signed By: <Electronically signed by Jose Palacios MD in OV> 10/08/24 1140 DD/ 1052 TD/TT: 10/08/24 1100 Chief Medical Technologist: [facility] BANQUET PILOT IMG XR PROCEDURES Final R esult documented in this encounter Visit Diagnoses Diagnosis Polyarthralgia- Primary Pain in joint, multiple sites Chronic bilateral low back pain with bilateral sciatica Intractable 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 aura and without status migrainosus documented in this encounter Additional Health Concerns Assessment Noted Time PHQ-9 Depression Total Score: 10 024 1:15 PM EDT documented as of this encounter Care Teams Test Deskman Relationship Specialty Start Date End Date Wendy Pang MD [address] [place] [address] PCP - General Internal Medicine 02/23/23 documented as of this encounter
--- OUTSIDE RECORDS SUMMARY | 2024-10-26 13:13 | XMS_ITS | Encounter Summary ---
Author Organization [employer] Address [address] [facility] 7t [place] [address] Care Team Providers Care Ladle Filler Name Role Phone Wendy Pang MD Primary Care Pro vider Reason for Visit * Reason Onset Date Comments Medical Question 10/15/2024 Encounter Details Date Type Department Care Team ([facility] st Contact Info) Description 10/15/2024 Telephone [facility] MEDICINE [address] [place] [address] Wendy Pang MD [address] [place] [address] Medical Question Social History Tobacco Use Types [...] this day. 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, therefore I advise she comes in [...] Description 11/20/2024 9:30 AM EDT Office Visit [facility] MEDICINE [address] [place] [address] Wendy Pang MD [address] [place] [address] 12/01/2024 11:15 AM EDT Office Visit [facility] OPTOMETRY [address] [place] [address] TarkaMagda, OD [address] [place] [address] documented as of this encounter Visit Diagnoses Not on filedocumented in this encounter Additional Health Concerns Assessment Noted Time PHQ-9 Depression Total Score: 10 024 1:15 PM EDT documented as of this encounter Care Teams Ladle Filler Relationship Specialty Start Date End Date Wendy Pang MD [address] [place] [address] PCP - General Internal Medicine 02/23/23 documented as of this encounter
--- OUTSIDE RECORDS SUMMARY | 2024-10-26 13:13 | XMS_ITS | Clinical Summary ---
Author Organization [employer] Address [address] [facility] 7t [place] [address] Care Team Providers Care Career Developer Name Role Phone Wendy Pang MD Primary [...] complication, without long-term current use of insulin ([facility]) TAKE 1 TABLET BY MOUTH [...] (BMI) of 40.0 to 44.9 in adult ([facility]) Inject 0.25 mg subcutaneously once a week for weeks 1-4 2 mL 3 Active Semaglutide-Weig ht Management (Wegovy) 0.5 MG/0.5ML solution auto-injectorInd ications:Class 3 severe obesity due to excess calories without serious comorbidity with body mass index (BMI) of 40.0 to 44.9 in adult ([facility]) Inject 0.5 mg subcutaneously weekly [...] of migraines, was receiving a medication from [place], not sure of the name Will start [...] Date Type Department Care Team Description 10/26/2024 Orders Only GENERIC EXTERNAL DATA DEPARTMENT Provider, Generic External Data 10/26/[address] [address] Patria Pappas ANP 10/16/2024 12:00 PM EST Office Visit [address] [address] Gladys Cee MD Cervical paraspinous muscle spasm (Primary Dx); Mixed hyperlipidemia; Primary hypertension 10/16/2024 Travel 10/15/[address] [address] Wendy Pang MD Chart prep 10/15/[address] [address] Wendy Pang MD Medical Question 10/15/[address] [address] Wendy Pang MD Nurse Triage 10/14/[address] [address] Wendy Pang MD Results 10/07/2024 11:15 AM EST Office Visit [address] [address] Blank Gage CNP Polyarthralgia (Primary Dx); Chronic bilateral low back pain with bilateral sciatica; Intractable 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 aura and without status migrainosus 09/29/2024 Telephone [facility] [address] [place] [address] Wendy Pang MD Prior Authorization ([employer]ep[employer]) 09/29/2024 Telephone [facility] [address] [place] [address] Wendy Pang MD Chart Prep 09/29/2024 Orders Only [facility] [address] [place] [address] Mychal Raymond MD 09/24/2024 Refill [facility] [address] [place] [address] Guadalupe Grimes RN 09/14/2024 Refill [facility] [address] [place] [address] Wendy Pang MD Mixed hyperlipidemia 09/04/2024 9:15 AM EST Office Visit [address] [address] Blank Gage CNP Polyarthralgia (Primary Dx); Type 2 diabetes mellitus without complication, without long-term current use of insulin ([facility]); Intractable 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 aura and without status migrainosus 09/03/[address] [address] Wendy Pang MD Chart Prep 09/03/[address] [address] Wendy Pang MD Nurse Triage 08/21/2024 Telephone [facility] [address] [place] [address] Luca Quezada MD 08/14/[address] [phone] Wendy Pang MD Nurse Triage 08/14/[address] [phone] Wendy Pang MD Referral 08/13/[address] [address] Wendy Pang MD 08/06/2024 Patient Outreach [address] [address] Wendy Pang MD Care Coordination ([facility] outreach for SDOH PT-1 - unable to LVM ) 08/06/[address] [address] Wendy Pang MD PT-1 08/05/[address] [address] Jamila Price [place] 08/05/2024 Patient Outreach [address] [address] Wendy Pang MD Care Coordination ([facility] outreach for [facility] PT-1 - LVM ) 08/04/[address] [address] Wendy Pang MD PT-1 07/28/2024 10:00 AM EST Clinical Support [address] [address] Hollie Desai RN Primary hypertension 07/28/2024 Travel [...] Score 10 04/28/2024 Patient Health Questionnaire-9 Score 04/28/2024 Last [...] 9:30 AM EDT Office Visit [facility] [address] [place] [address] Wendy Pang MD [address] [place] [address] 12/01/2024 11:15 AM EDT Office Visit [facility] [address] [place] [address] Galilea, Magda, OD [address] [place] [address] Health Maintenance Due Date Last Done Comments [...] Procedure Name Priority Date/Time Associated Diagnosis Comments COMPREHENSIVE METABOLIC PANEL Routine 10/26/2024 11:48 AM EDT CBC WITH AUTO DIFFERENTIAL Routine 10/26/2024 11:48 AM EDT XR LUMBAR SPINE COMPLETE 4+ VIEWS Routine 10/08/2024 10:52 AM EST POCT GLUCOSE Routine 09/04/2024 9:24 AM EST Type 2 diabetes mellitus without complication, without long-term current use of insulin ([facility]) ALBUMIN, RANDOM URINE W/CREATININE Routine [...] Recently Relevant to Health Maintenance Results * CBC auto differential (10/26/2024 11:48 AM EDT) White Blood Count 8.2 4.8 - 10.8 X10*3/uL [facility] Red Blood Count 4.65 4.20 - 5.50 X10*6/uL [facility] Hemoglobin 14.0 12.0 - 16.0 g/dl [facility] Hematocrit 43.7 37.0 - 47.0 % [facility] Mean Corpuscular Volume 94.0 80.0 - 98.0 fL [facility] Mean Corpuscular Hemoglobin 30.1 27.0 - 33.0 pg [facility] Mean Corpuscular HGB Conc 32.0 31.0 - 35.0 g/dl [facility] Red Cell Distribution Width 14.2 11.0 - 16.0 % [facility] Platelet Count 191 160 - 400 X10*3/uL [facility] Mean Platelet Volume 11.4 9.4 - 12.3 fL [facility] Neutrophils Percent Auto 66.2 45 - 73 % [facility] Imm Gran Pct Auto 0.2 0.0 - 0.4 % [facility] Lymphocytes Percent Auto 27.8 20 - 40 % [facility] Monocytes Percent Auto 5.0 2 - 11 % [facility] Eosinophils Percent Auto 0.4 0 - 4 % [facility] Basophils Percent Auto 0.4 0 - 2 % [facility] NRBC Pct Auto 0.0 0.0 - 0.2 /100WBC [facility] Neutrophils Absolute Auto 5.5 2.0 - 8.3 x10*3/uL [facility] Imm Gran Abs Auto 0.02 0.00 - 0.03 X10*3/uL [facility] Lymphocytes Absolute Auto 2.3 1.2 - 4.9 X10*3/uL [facility] Monocytes Absolute Auto 0.4 0.1 - 1.2 X10*3/uL [facility] Eosinophils Absolute Auto 0.0 0.0 - 0.4 X10*3/uL [facility] Basophils Absolute Auto 0.0 0.0 - 0.2 X10*3/uL [facility] NRBC Abs Auto 0.000 0.0 - 0.012 X10*3/uL [facility] 10/26/2024 11:4 8 AM EDT 10/26/2024 11:48 AM EDT us Generic External Data Provider LAB BLOOD ORDERAB LES Final Result [facility] [address] [place] [address] [phone] * (ABNORMAL) Comprehensive Metabolic Panel (10/26/2024 11:48 AM EDT) Sodium 141 135 - 145 mmol/L [facility] Potassium 4.0 3.3 - 5.1 mmol/L [facility] Chloride 110(H) 96 - 108 mmol/L [facility] Carbon Dioxide 24 22 - 29 mmol/L [facility] Anion Gap 11(L) 12 - 20 [facility] Urea Nitrogen (BUN) 21(H) 9 - 16 mg/dL [facility] Creatinine, Serum 0.70 0.5 - 1.4 mg/dL [facility] Estimated Glomerular Filt Rate >60 [facility] Comment:Chronic Kidney Disea se: Estimated GFR < 60 mL/min/1.64r1Hrxhsz Kidney Disease: Estimated GFR < 15 mL/min/1.73m2 Glucose 86 60 - 115 mg/dL [facility] Calcium 9.1 8.4 - 10.2 mg/dL [facility] Bilirubin, Total 0.5 0.0 - 1.0 mg/dL [facility] Aspartate Amino Transferase 45(H) 5 - 31 U/L [facility] Alanine Aminotransferase 38(H) 0 - 31 U/L [facility] Total Protein 8.6(H) 6.5 - 8.0 g/dL [facility] Albumin Level 4.3 3.5 - 5.0 g/dL [facility] Alkaline Phosphatase 78 39 - 117 U/L [facility] 10/26/2024 11:4 8 AM EDT 10/26/2024 11:48 AM EDT us Generic External Data Provider LAB BLOOD ORDERAB LES Final Result Performing Organization Address City/State/[facility] Co de Phone Number [facility] [address] [place] [phone] * XR Lumbar Spine Complete 4+ Views (10/08/2024 10:52 AM EST) Anatomical Region Laterality Modality Spine, L-spine Radiographic Jeanine ging 10/08/2024 10:5 2 AM EST Narrative 10/08/2024 11:43 AM EST ?[facility] ?[address] ?[place] [address] ?XRay Report ? Signed ? Patient: ThompsonJocelin Davis ?M ?? R#: [id number] ? : 1970 ?Acct:[id number] ? Age/Sex: 54 / F ?ADM Date: 02/20/25 ? Loc: HO.HHCX ? Attending Dr: Blank Gage [employer] ? Ordering Physician: Blank Gage ?? Date of Service: 10/08/24 ?? Procedure(s): XR lumbar spine 4V min ?? Accession Number(s): [id number] ? cc: Blank Gage ? EXAMINATION: ?? [...] DD/ 1052 ? TD/TT: 10/08/24 1100 ? Manager Pharmaceutical: ? Procedure Note Carline Lynch - 10/08/2024 [facility] [address] [place] [address] XRay Report Signed Patient: Jo Auguste Carlos#: [id number] : 1970Acct:[id number] Age/Sex: 54 / FADM Date: 10/08/24 Loc: .HHX Attending Dr: Blank Gage [employer] Ordering Physician: Blank Gage Date of Service: 10/08/24 Procedure(s): XR lumbar spine 4V min Accession Number(s): [id number] cc: Blank Gage EXAMINATION: XR LUMBOSACRAL SPINE [...] 10/08/24 1140 DD/ 1052 TD/TT: 10/08/24 1100 Manager Pharmaceutical: [facility] IMG XR PROCEDURES Final R esult * POCT Glucose (09/04/2024 9:24 AM EST) Glucose Blood, POC 160 60 - 200 mg/dL QC Media Lot # [id number] Lot# Expiration Date [id number] Blood Capillary blood specimen / Unknown 09/04/2024 9:24 AM EST [facility] POINT OF CARE TEST ENTER/ EDIT ORDERABLES Final Result * Albumin, Random Urine W/Creatinine (06/12/2024 11:40 AM EDT) Creatinine, Urine 195.62 mg/dL [facility] Microalbumin Urine 41.0 mg/L [facility] Microalbum Creatinine Ratio Ur 20.9 <30 ug/mg cr [facility] Comment:Albumin/Creatinine R atio Reference Ranges: Normal: < 30 ug/mg creatinine Microalbuminuria: 30 - 300 ug/mg creatinineClinical Albuminuria: > 300 ug/mg creatinine Urine (Urine, Random) 06/12/2024 11:40 AM EDT 06/12/2024 1:08 PM EDT us Wendy Vance MD LAB URINE ORDERAB LES Final Result Performing Organization Address [facility] Co de Phone Number [facility] [address] [place] [phone] * Hepatitis C Antibody with Reflex to HCV, RNA, Quantitative, Real-Time PCR (06/12/2024 11:39 AM EDT) Hepatitis C Antibody Nonreactive Nonreactive [facility] Comment:Antibodies to HCV no t detected; does not exclude early acuteHCV infection. Blood Venous blood specimen / Unknown 06/12/2024 11:39 AM EDT 06/12/2024 1:19 PM EDT us Wendy Vance MD LAB BLOOD ORDERAB LES Final Result Performing Organization Address City/[facility]/ZIP Co de Phone Number [facility] [address] [place] [phone] * HIV-1/2 Antigen and Antibodies, Fourth Generation, with Reflexes (06/12/2024 11:39 AM EDT) HIV AB/AG Nonreactive Nonreactive [facility] Comment:HIV-1 p24 Ag and/or HIV-1/HIV-2 Ab not detected.A test result that is nonreactive does not exclude thepossibility of exposure to or infection with HIV-1 and/orHIV-2. Nonreactive results in this assay for individualswith prior exposure to HIV-1 and/or HIV-2 may be due toantigen and antibody levels that are below the limit ofdetection of this assay.The [id number] HIV Ag/Ab Combo assay result andsupplemental assay results should be interpreted inconjunction with the patient's clinical presentation,history and other laboratory results. If the results areinconsistent with clinical evidence, additional testing issuggested to confirm the result. Blood Venous blood specimen / Unknown 06/12/2024 11:39 AM EDT 06/12/2024 1:19 PM EDT us Wendy Vance MD LAB BLOOD ORDERAB LES Final Result Performing Organization Address [facility]/ZIP Co de Phone Number [facility] [address] [place] [phone] * Hemoglobin A1c (06/12/2024 11:39 AM EDT) Hemoglobin A1c 5.7 <6.0 % [facility] Comment:Hemoglobin A1C Refer ence Range Adults: 4.8 - 6.0 % Non diabetic: < 6.0 % Goal: < 7.0 %Additional Action Suggested: > 8.0 %Note: Hemoglobin A1c results are invalid for patients with abnormal amounts of HbF. Blood transfusions may impact the HbA1c concentration in the patient sample. Estimated Average Glucose 117 mg/dL [facility] Comment:eAG = Estimated ave rage glucose which is %A1C expressed asaverage glucose, using the formula of the W5S-FhtklniDqiaevw Glucose study (ADAG), Diabetes Care, Vol.31,#8,Mar. 2007 Blood Venous blood specimen / Unknown 06/12/2024 11:39 AM EDT 06/12/2024 1:19 PM EDT us Wendy Vance MD LAB BLOOD ORDERAB LES Final Result Performing Organization Address [facility]/ZIP Co de Phone Number [facility] [address] [place] [phone] * (ABNORMAL) Lipid Panel, Standard (06/12/2024 11:39 AM EDT) Triglycerides 113 <150 mg/dL [facility] Comment:Desirable Triglyceri de: less than 150 mg/dLBorderline High Triglyceride 150-199 mg/dLHigh Triglyceride: 200-499 mg/dLVery High Triglyceride: greater than or equal to 5OO mg/dL Cholesterol 232(H) <200 mg/dL [facility] Comment:Desirable Cholestero l: less than 200 mg/dLBorderline High Cholesterol: 200-239 mg/dLHigh Cholesterol: greater than 239 mg/dL LDL Cholesterol Calculated 155(H) <100 mg/dL [facility] Comment:Desirable LDL: less than 100 mg/dLNear Optimal/Above Optimal LDL: 110- 129 mg/dLBorderline High LDL: 130-159 mg/dLHigh LDL: 160-189 mg/dLVery High LDL: greater than or equal to 190 mg/dL HDL Cholesterol 55 >40 mg/dL [facility] Comment:Desirable HDL: great er than 40 mg/dL Note: This HDL assay may give artificially low results in patients with liver disease. Blood Venous blood specimen / Unknown 06/12/2024 11:39 AM EDT 06/12/2024 1:19 PM EDT Wendy Vance MD LAB BLOOD ORDERAB LES Final Result [facility] [address] [place] [phone] * BI Mammogram Screening Tomosynthesis Bilateral (02/27/2024 11:03 AM EDT) Anatomical Region Laterality Modality Breast Bilateral Mammography 02/27/2024 11:0 3 AM EDT Narrative 03/23/2024 10:37 PM EDT ? [place] [facility] ? [address] ?[place] [address] ? Mammography Report ? Signed ? Patient: Thompsonkarine Durán,Jocelin ?M ?? R#: [id number] ? : 1970 ?Acct:[id number] ? Age/Sex: 53 / F ?ADM Date: 02/27/24 ? Loc: HO.MAMMO ? Attending Dr: Ronni Bautista MD ? Ordering Physician: Ronni Bautista MD ?Results: 1Negativ ?? e ? Date of Service: 02/27/24 ?Follow Up: 1 Year From Orig ?? inal Mammogram ? Procedure(s): MM tomosynthesis screening BI ?? Accession Number(s): [id number] ? cc: Wendy Pang MD; Ronni Bautista [...] 03/23/242232 ? DD/ 1103 ? TD/TT: ? Manager Pharmaceutical: ? Procedure Note Syed, Image - 03/23/2024 Taran [facility] [address] [place] [address] Mammography Report Signed Patient: Jo Auguste R#: [id number] : 1970Acct:[id number] Age/Sex: 53 / FADM Date: 02/27/24 Loc: HO.MAMMO Attending Dr: Ronni Bautista MD Ordering Physician: Ronni Bautistaesults: 1Negativ e Date of Service: 02/27/24Follow Up: 1 Year From Orig inal Mammogram Procedure(s): MM tomosynthesis screening BI Accession Number(s): [id number] cc: Wendy Pang MD; Ronni Bautista MD [...] in OV> 03/23/24 2233 DD/ 1103 TD/TT: Manager Pharmaceutical: [facility] External Provider IMG BI PROCEDURES Final [...] Most Recently Relevant to Health Maintenance [place] [address] [place] [address] C3 Care Teams Career Developer Relationship Specialty Start Date End Date Wendy Pang MD [address] [facility] [place] [address] PCP - General Internal Medicine 02/23/23
--- OUTSIDE RECORDS SUMMARY | 2024-10-26 13:13 | XMS_ITS | Encounter Summary ---
Author Organization [employer] Address [address] [facility] 7t [place] [address] Care Team Providers Care Architecture Drafter Name Role Phone Wendy Pang MD Primary Care Pro vider Encounter Details Date Type Department Care Team (Late st Contact Info) Description 10/26/2024 Orders Only GENERIC EXTERNAL DATA DEPARTMENT Provider, Generic External Data Social History Tobacco Use Types Packs/Day Years [...] with others, in a hotel, in a usp, living outside on the street, on a [...] Description 11/20/2024 9:30 AM EDT Office Visit [facility] [address] [place] [address] Wendy Pang MD [address] [place] [address] 12/01/2024 11:15 AM EDT Office Visit [facility] [address] [place] [address] TarkaMagda, OD [address] [place] [address] documented as of this encounter Procedures Procedure Name Priority Date/Time Associated Diagnosis Comments CBC WITH AUTO DIFFERENTIAL Routine 10/26/2024 11:48 AM EDT COMPREHENSIVE METABOLIC PANEL Routine 10/26/2024 11:48 AM EDT documented in this encounter Results * (ABNORMAL) Comprehensive Metabolic Panel (10/26/2024 11:48 AM EDT) Sodium 141 135 - 145 mmol/L [facility] Potassium 4.0 3.3 - 5.1 mmol/L [facility] Chloride 110(H) 96 - 108 mmol/L [facility] Carbon Dioxide 24 22 - 29 mmol/L [facility] Anion Gap 11(L) 12 - 20 [facility] Urea Nitrogen (BUN) 21(H) 9 - 16 mg/dL [facility] Creatinine, Serum 0.70 0.5 - 1.4 mg/dL [facility] Estimated Glomerular Filt Rate >60 [facility] Comment:Chronic Kidney Disea se: Estimated GFR < 60 mL/min/1.33f4Wzdbuy Kidney Disease: Estimated GFR < 15 mL/min/1.73m2 Glucose 86 60 - 115 mg/dL [facility] Calcium 9.1 8.4 - 10.2 mg/dL [facility] Bilirubin, Total 0.5 0.0 - 1.0 mg/dL [facility] Aspartate Amino Transferase 45(H) 5 - 31 U/L [facility] Alanine Aminotransferase 38(H) 0 - 31 U/L [facility] Total Protein 8.6(H) 6.5 - 8.0 g/dL [facility] Albumin Level 4.3 3.5 - 5.0 g/dL [facility] Alkaline Phosphatase 78 39 - 117 U/L [facility] 10/26/2024 11:4 8 AM EDT 10/26/2024 11:48 AM EDT us Generic External Data Provider LAB BLOOD ORDERAB LES Final Result [facility] [address] [place] [phone] * CBC auto differential (10/26/2024 11:48 AM EDT) White Blood Count 8.2 4.8 - 10.8 X10*3/uL [facility] Red Blood Count 4.65 4.20 - 5.50 X10*6/uL [facility] Hemoglobin 14.0 12.0 - 16.0 g/dl [facility] Hematocrit 43.7 37.0 - 47.0 % [facility] Mean Corpuscular Volume 94.0 80.0 - 98.0 fL [facility] Mean Corpuscular Hemoglobin 30.1 27.0 - 33.0 pg [facility] Mean Corpuscular HGB Conc 32.0 31.0 - 35.0 g/dl [facility] Red Cell Distribution Width 14.2 11.0 - 16.0 % [facility] Platelet Count 191 160 - 400 X10*3/uL [facility] Mean Platelet Volume 11.4 9.4 - 12.3 fL [facility] Neutrophils Percent Auto 66.2 45 - 73 % [facility] Imm Gran Pct Auto 0.2 0.0 - 0.4 % [facility] Lymphocytes Percent Auto 27.8 20 - 40 % [facility] Monocytes Percent Auto 5.0 2 - 11 % [facility] Eosinophils Percent Auto 0.4 0 - 4 % [facility] Basophils Percent Auto 0.4 0 - 2 % [facility] NRBC Pct Auto 0.0 0.0 - 0.2 /100WBC [facility] Neutrophils Absolute Auto 5.5 2.0 - 8.3 x10*3/uL [facility] Imm Gran Abs Auto 0.02 0.00 - 0.03 X10*3/uL [facility] Lymphocytes Absolute Auto 2.3 1.2 - 4.9 X10*3/uL [facility] Monocytes Absolute Auto 0.4 0.1 - 1.2 X10*3/uL [facility] Eosinophils Absolute Auto 0.0 0.0 - 0.4 X10*3/uL [facility] Basophils Absolute Auto 0.0 0.0 - 0.2 X10*3/uL [facility] NRBC Abs Auto 0.000 0.0 - 0.012 X10*3/uL [facility] 10/26/2024 11:4 8 AM EDT 10/26/2024 11:48 AM EDT us Generic External Data Provider LAB BLOOD ORDERAB LES Final Result [facility] [address] [place] [phone] documented in this encounter Visit Diagnoses Not on filedocumented in this encounter Additional Health Concerns Assessment Noted Time PHQ-9 Depression Total Score: 10 09/10/2 024 1:15 PM EDT documented as of this encounter Care Teams Architecture Drafter Relationship Specialty Start Date End Date Wendy Pang MD [address] [place] [phone] PCP - General Internal Medicine 02/23/23 documented as of this encounter
--- OUTSIDE RECORDS SUMMARY | 2024-10-26 13:13 | XMS_ITS | Encounter Summary ---
Author Organization [employer] Address [address] [facility] 7t [place] [address] Care Team Providers Care Software Requirements Engineer Name Role Phone Wendy Pang MD Primary Care Pro vider Reason for Visit * Reason Onset Date Comments Results 10/14/2024 Encounter Details Date Type Department Care Team ([facility] st Contact Info) Description 10/14/2024 Telephone [facility] [address] [place] [address] Wendy Pang MD [address] [place] [address] Results Social History Tobacco Use Types Packs/Day [...] TC x 1 placed to pt at [phone] via [employer] Finance Clerk (Will ID#[id number]) to inform of below providermessage. No answer, unable to leave voicemail as box has not been set up yet. TC x 3 placed to pt at [phone]. The call does not dial. Call transferred to another agent (Emi ID#[id number]). The exhibits curator ran into the same issue again. Pt to follow up PRN. ----- Message from [employer] sent at 10/14/2024 12:41 PM EST [...] Description 11/20/2024 9:30 AM EDT Office Visit [facility] [address] [place] [address] Wendy Pang MD [address] [place] [address] 12/01/2024 11:15 AM EDT Office Visit [facility] [address] [place], [place] [phone] Magda Calero, OD [address] [place] [address] documented as of this encounter Visit Diagnoses Not on filedocumented in this encounter Additional Health Concerns Assessment Noted Time PHQ-9 Depression Total Score: 10 024 1:15 PM EDT documented as of this encounter Care Teams Software Requirements Engineer Relationship Specialty Start Date End Date Wendy Pang MD [address] [place] [address] PCP - General Internal Medicine 02/23/23 documented as of this encounter
--- OUTSIDE RECORDS SUMMARY | 2024-10-26 13:13 | XMS_ITS | Encounter Summary ---
Author Organization [employer] Address 75 [facility] 7t [place] [address] Care Team Providers Care Brushing Operator Name Role Phone Wendy Pang MD Primary Care Pro vider Reason for Referral * Consultation (Routine) - Closed Specialty Diagnoses / Procedures Referred By Hawk t Referred To Contact Optometry Diagnoses Primary hypertension Gladys Cee MD [address] [place] [address] Phone: tel: fax: [facility] OPTOMETRY [address] [place] [address] Phone: tel: fax: Referral ID Status Reason Start Date Expiration Date V isits Requested Visits Authorized [id number] Closed Consult and Treat 10/16/2024 10/16/2025 1 1 Reason for Visit * Reason Comments Pelvic Pain Encounter Details Date Type Department Care Team (Late st Contact Info) Description 10/16/2024 12:00 PM EST Office Visit [facility] MEDICINE [address] [place] [address] Gladys Cee MD [address] [place] [address] Cervical paraspinous muscle spasm (Primary Dx); Mixed [...] Description 11/20/2024 9:30 AM EDT Office Visit [facility] MEDICINE [address] [place] [address] Wendy Pang MD 230 [place] [address] 12/01/2024 11:15 AM EDT Office Visit [facility] OPTOMETRY [address] [place] [address] Magda Calero, OD [address] [place] [address] Scheduled Referrals Name Type Priority Associated Diagnoses [...] documented as of this encounter Care Teams Brushing Operator Relationship Specialty Start Date End Date Wendy Pang MD [address] [place] [address] PCP - General Internal Medicine 02/23/23 documented as of this encounter
--- OUTSIDE RECORDS SUMMARY | 2024-10-26 13:13 | XMS_ITS | Encounter Summary ---
Author Organization [employer] Address 75 [facility] 7t [place] [address] Care Team Providers Care Heel Nail Rasper Name Role Phone Wendy Pang MD Primary [...] Description 11/20/2024 9:30 AM EDT Office Visit [facility] MEDICINE [address] [place] [address] Wendy Pang MD [address] [place] [address] 12/01/2024 11:15 AM EDT Office Visit [facility] OPTOMETRY [address] [place] [address] Magda Calero, OD [address] [place] [address] documented as of this encounter Visit Diagnoses Not on filedocumented in this encounter Additional Health Concerns Assessment Noted Time PHQ-9 Depression Total Score: 10 024 1:15 PM EDT documented as of this encounter Care Teams Heel Nail Rasper Relationship Specialty Start Date End Date Wendy Pang MD [address] [place] [address] PCP - General Internal Medicine 02/23/23 documented as of this encounter
--- OUTSIDE RECORDS SUMMARY | 2024-10-26 13:13 | XMS_ITS | Encounter Summary ---
Author Organization [employer] Address 75 [facility] 7t [place] [address] Care Team Providers Care Resource Economist Name Role Phone Wendy Pang MD Primary Care Pro vider Reason for Visit * Reason Onset Date Comments Nurse Triage 03/11/2023 Encounter Details Date Type Department Care Team ([facility] st Contact Info) Description 03/11/2023 Telephone [facility] MEDICINE [address] [place] [address] Wendy Pang MD [address] [place] [address] Nurse Triage Social History Tobacco Use Types [...] 03/14/2023 11:06 AM EDT Triage call with [facility] Adoption Specialist [place] [id number]. Pt was triaged 03/11/23 and advised to come to [facility] to be seen but, didn't go. Pt reports doesn't want to go to [facility] because, I have too many issues Carol only want my doctor . Pt is offered 300pm apt with Dr. Villegas today but, reports no transportation. Advised Pt has 04/18/23 apt for transfer to Dr. Jama Vance and Pt reports my friend said thereare many apts open with Dr. Yun earlier than that and I want to go 03/25. . Pediatric Licensed Practical Nurse looked at schedule for that day and no available apts for transfer Pt seen. Phone connection very poor. Call was dropped 3 times during this conversation. Advised Pt to come to [facility] today or tomorrow. Hours given opentill 4pm [...] still has severe pain. Please contact at [phone] * Telephone Encounter - Beryl Schuster RN - 03/11/2023 1:25 PM EDT Triage call with [employer] [facility] Adoption Specialist [place] [id number] Pt reports shoulder, neck, middle to low back pain. Pt reports left foot almost gave out and Pt almost fell so Pt has someone walk with her all the time. Pt has suffered loss of mother and other family problems causing the increase of the pain. Pt is not finding effective pain relief and wants to see provider. Advised to come to [facility] today to be seen and Pt agreed. [...] accepted this outcome Please contact pt at [phone] Vincentian Speaker documented in this encounter Plan of Treatment Upcoming Encounters Date Type Department Care Team (Late st Contact Info) Description 11/20/2024 9:30 AM EDT Office Visit [facility] MEDICINE [address] [place] [address] Wendy Pang MD [address] [place] [address] 12/01/2024 11:15 AM EDT Office Visit [facility] OPTOMETRY [address] [place] [address] Magda Calero, OD 267 [place] [address] documented as of this encounter Visit Diagnoses Not on filedocumented in this encounter Care Teams Resource Economist Relationship Specialty Start Date End Date Wendy Pang MD [address] [place] [address] PCP - General Internal Medicine 02/23/23 documented as of this encounter
--- OUTSIDE RECORDS SUMMARY | 2024-10-26 13:13 | XMS_ITS | Encounter Summary ---
Author Organization [employer] Address 75 [facility] 7t [place] [address] Care Team Providers Care Web Marketing Coordinator Name Role Phone Wendy Pang MD Primary Care Pro vider Reason for Visit * Reason Onset Date Comments Nurse Triage 10/15/2024 Encounter Details Date Type Department Care Team ([facility] st Contact Info) Description 10/15/2024 Telephone [facility] MEDICINE [address] [place] [address] Wendy Pang MD [address] [place] [address] Nurse Triage Social History Tobacco Use Types [...] RN - 10/15/2024 12:52 PM EST No air brake worker needed 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 Call returned to Jocelin hyde below. Reports having lower pelvic pain. Pt also having some vaginal spotting 3 days ago. Per pt its a burning sensation. Denies any urinary symptoms. No vaginal discharge. Pt did call [employer] at [facility] but was advised needed to call taker office in [place]( [facility]), called them and directed to [employer]. Pt prefers to be seen in PCP [...] 10/16/2024 12:00 PM Gladys Cee MD MEDICINE [facility] 10/26/2024 9:00 AM [facility] PHARMACIST MEDICINE [facility] 11/20/2024 9:30 AM Wendy Vance MD MEDICINE [facility] Insurance verified as active per Real Time Eligibility in [facility]. Positive Triage Question: * Mild to Moderate [...] Description 11/20/2024 9:30 AM EDT Office Visit [facility] MEDICINE [address] [place] [address] Wendy Pang MD [address] [place] [address] 12/01/2024 11:15 AM EDT Office Visit [facility] OPTOMETRY [address] [place] [address] Taranastasiia Magda, OD [address] [place] [address] documented as of this encounter Visit Diagnoses Not on filedocumented in this encounter Additional Health Concerns Assessment Noted Time PHQ-9 Depression Total Score: 10 024 1:15 PM EDT documented as of this encounter Care Teams Web Marketing Coordinator Relationship Specialty Start Date End Date Wendy Pang MD [address] [place] [address] PCP - General Internal Medicine 02/23/23 documented as of this encounter
--- OUTSIDE RECORDS SUMMARY | 2024-10-26 13:13 | XMS_ITS | Encounter Summary ---
Author Organization [employer] Address 75 [facility] 7t [place] [address] Care Team Providers Care Clip Coater Name Role Phone Wendy Pang MD Primary Care Pro vider Reason for Visit * Reason Comments Med Refill Encounter Details Date Type Department Care Team (Late st Contact Info) Description 10/26/2024 Refill [facility] MEDICINE [address] [place], [place] [phone] Patria Pappas ANP 230 [place], [place] [phone] Social History Tobacco Use Types Packs/Day Years [...] Description 11/20/2024 9:30 AM EDT Office Visit [facility] MEDICINE [address] [place] [address] Wendy Pang MD [address] [place] [address] 12/01/2024 11:15 AM EDT Office Visit [facility] OPTOMETRY [address] [place] [address] TarMagda laurent, OD [address] [place] [address] documented as of this encounter Visit Diagnoses Not on filedocumented in this encounter Additional Health Concerns Assessment Noted Time PHQ-9 Depression Total Score: 10 024 1:15 PM EDT documented as of this encounter Care Teams Clip Coater Relationship Specialty Start Date End Date Wendy Pang MD [address] [place] [address] PCP - General Internal Medicine 02/23/23 documented as of this encounter
--- OUTSIDE RECORDS SUMMARY | 2024-10-26 13:13 | XMS_ITS | Encounter Summary ---
Author Organization [employer] Address 75 [facility] 7t [place] [address] Care Team Providers Care Outpatient Physical Therapist Assistant Name Role Phone Wendy Martell MD Primary Care Provide r Wendy Pang MD Primary Care Pro vider Encounter Details Date Type Department Care Team (Late st Contact Info) Description 02/18/2023 Orders Only [facility] MEDICINE [address] [place] [address] Jordana Jose CNM 230 [place] [address] Social History Tobacco Use Types Packs/Day Years [...] Description 11/20/2024 9:30 AM EDT Office Visit [facility] MEDICINE [address] [place] [address] Wendy Pang MD 230 [place] [address] 12/01/2024 11:15 AM EDT Office Visit [facility] OPTOMETRY [address] [place] [address] Magda Calero, OD [address] [place] [address] documented as of this encounter Procedures Procedure Name Priority Date/Time Associated Diagnosis Comments COLPOSCOPY Routine 01/31/2023 12:00 AM EDT documented in this encounter Results * Colposcopy (01/31/2023 12:00 AM EDT) us Ronni Bautista MD IN CLINIC/BEDSIDE ORDERABLES Fin al Result [facility] [address] [place] [address] [phone] documented in this encounter Visit Diagnoses Not on filedocumented in this encounter Care Teams Outpatient Physical Therapist Assistant Relationship Specialty Start Date End Date Wendy Martell MD 230 [place] [address] PCP - General Internal Medicine 11/22/22 02/22/23 Wendy Pang MD [address] [place] [address] PCP - General Internal Medicine 02/23/23 documented as of this encounter
--- OUTSIDE RECORDS SUMMARY | 2024-10-26 13:13 | XMS_ITS | Encounter Summary ---
Author Organization [employer] Address 75 [facility] 7t [place] [address] Care Team Providers Care Sales Department Clerk Name Role Phone Wendy Pang MD Primary Care Pro vider Reason for Visit * Reason Onset Date Comments PT-1 08/04/2024 Encounter Details Date Type Department Care Team ([facility] st Contact Info) Description 08/04/2024 Telephone [facility] MEDICINE [address] [place] [address] Wendy Pang MD [address] [place] [address] PT-1 Social History Tobacco Use Types Packs/Day [...] with others, in a hotel, in a alf, living outside on the street, on a [...] Description 11/20/2024 9:30 AM EDT Office Visit [facility] MEDICINE [address] [place] [address] Wendy Pang MD [address] [place] [address] 12/01/2024 11:15 AM EDT Office Visit [facility] OPTOMETRY [address] [place] [address] Magda Calero, OD [address] [place] [address] documented as of this encounter Visit Diagnoses Not on filedocumented in this encounter Additional Health Concerns Assessment Noted Time PHQ-9 Depression Total Score: 10 024 1:15 PM EDT documented as of this encounter Care Teams Sales Department Clerk Relationship Specialty Start Date End Date Wendy Pang MD [address] [place] [address] PCP - General Internal Medicine 02/23/23 documented as of this encounter
--- OUTSIDE RECORDS SUMMARY | 2024-10-26 13:13 | XMS_ITS | Encounter Summary ---
Author Organization [employer] Address 75 [facility] 7t [place] [address] Care Team Providers Care Pharmacy Picking Tech Name Role Phone Wendy Pang MD Primary Care Pro vider Reason for Visit * Reason Onset Date Comments Chart prep 10/15/2024 Encounter Details Date Type Department Care Team ([facility] st Contact Info) Description 10/15/[address] [facility] MEDICINE [address] [place] [address] Wendy Pang MD 230 [place] [address] Chart prep Social History Tobacco Use Types [...] 11/20/2024 9:30 AM EDT Office Visit [facility] MEDICINE [address] [place] [address] Wendy Pang MD [address] [place] [address] 12/01/2024 11:15 AM EDT Office Visit [facility] OPTOMETRY [address] [place], [place] [phone] Magda Calero OD [address] [place] [address] documented as of this encounter Visit Diagnoses Not on filedocumented in this encounter Additional Health Concerns Assessment Noted Time PHQ-9 Depression Total Score: 10 024 1:15 PM EDT documented as of this encounter Care Teams Pharmacy Picking Tech Relationship Specialty Start Date End Date Wendy Pang MD [address] [place] [address] PCP - General Internal Medicine 02/23/23 documented as of this encounter
--- OUTSIDE RECORDS SUMMARY | 2024-10-26 13:13 | XMS_ITS | Encounter Summary ---
Author Organization [employer] Address 75 [facility] 7t [place] [address] Care Team Providers Care Insurance Producer Name Role Phone Wendy Pang MD Primary Care Pro vider Reason for Visit * Reason Onset Date Comments Accamodation Letter 06/25/2024 Encounter Details Date Type Department Care Team ([facility] st Contact Info) Description 06/25/2024 Telephone [facility] MEDICINE 230 [place] [address] Wendy Pang MD 230 [place] [address] Accamodation Letter Social History Tobacco Use Types [...] any questions you can contact pt at [phone]. 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) documented in this encounter Plan of Treatment Upcoming Encounters Date Type Department Care Team (Late st Contact Info) Description 11/20/2024 9:30 AM EDT Office Visit [facility] MEDICINE [address] [place] [address] Wendy Pang MD [address] [place] [address] 12/01/2024 11:15 AM EDT Office Visit [facility] OPTOMETRY [address] [place] [address] Magda Calero, OD [address] [place] [address] documented as of this encounter Visit Diagnoses Not on filedocumented in this encounter Additional Health Concerns Assessment Noted Time PHQ-9 Depression Total Score: 10 024 1:15 PM EDT documented as of this encounter Care Teams Insurance Producer Relationship Specialty Start Date End Date Wendy Pang MD [address] [place] [address] PCP - General Internal Medicine 02/23/23 documented as of this encounter
--- OUTSIDE RECORDS SUMMARY | 2024-10-26 13:13 | XMS_ITS | Encounter Summary ---
Author Organization [employer] Address 75 [facility] 7t [place] [address] Care Team Providers Care Frame Stripper Name Role Phone Wendy Pang MD Primary Care Pro vider Encounter Details Date Type Department Care Team (Late st Contact Info) Description 09/29/2024 Orders Only [facility] MEDICINE [address] [place], [place] [phone] Provider, MD Mychal Social History Tobacco Use [...] Visit [facility] MEDICINE [address] [place] [address] Wendy Pang MD [address] [place] [address] 12/01/2024 11:15 AM EDT Office Visit [facility] OPTOMETRY [address] [place] [address] Magda Calero, OD [address] [place] [address] documented as of this encounter Procedures Procedure [...] documented as of this encounter Care Teams Frame Stripper Relationship Specialty Start Date End Date Wendy Pang MD [address] [place] [address] PCP - General Internal Medicine 02/23/23 documented as of this encounter
--- OUTSIDE RECORDS SUMMARY | 2024-10-26 13:13 | XMS_ITS | Encounter Summary ---
Author Organization [employer] Address 75 [facility] 7t [place] [address] Care Team Providers Care Bench Inspector Name Role Phone Wendy Pang MD Primary Care Pro vider Reason for Visit * Reason Onset Date Comments Durable Medical Equipment 06/23/2024 Prior Authorization 06/23/2024 Encounter Details Date Type Department Care Team ([facility] st Contact Info) Description 06/23/2024 Telephone [facility] MEDICINE [address] [place] [address] Wendy Pang MD [address] [place] [address] Durable Medical Equipment; Prior Authorization Social History [...] 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 Please contract pt at [phone]. (Martiniquais Speaker) documented in this encounter Plan of Treatment Upcoming Encounters Date Type Department Care Team (Late st Contact Info) Description 11/20/2024 9:30 AM EDT Office Visit [facility] MEDICINE [address] [place] [address] Wendy Pang MD [address] [place] [address] 12/01/2024 11:15 AM EDT Office Visit [facility] OPTOMETRY [address] [place] [address] Magda Calero, OD [address] [place] [address] documented as of this encounter Visit Diagnoses Not on filedocumented in this encounter Additional Health Concerns Assessment Noted Time PHQ-9 Depression Total Score: 10 024 1:15 PM EDT documented as of this encounter Care Teams Bench Inspector Relationship Specialty Start Date End Date Wendy Pang MD [address] [place] [address] PCP - General Internal Medicine 02/23/23 documented as of this encounter
--- OUTSIDE RECORDS SUMMARY | 2024-10-26 13:13 | XMS_ITS | Encounter Summary ---
Author Organization [employer] Address 75 [facility] 7t [place] [address] Care Team Providers Care Legal Adviser Name Role Phone Wendy Pang MD Primary Care Pro vider Reason for Visit * Reason Onset Date Comments Prior Authorization 09/29/2024 Zep[employer] Encounter Details Date Type Department Care Team ([facility] st Contact Info) Description 09/29/2024 Telephone [facility] MEDICINE 230 [place] [address] Wendy Pang MD 230 [place] [address] Prior Authorization (Zepbound) Social History Tobacco Use [...] with others, in a hotel, in a nursing home, living outside on the street, on [...] PA approval received for Zepbound. Scanned into [employer]. * Telephone Encounter - Natacha Medrano - 09/30/2024 4:03 PM EST PA for Zepbound signed and faxed to [facility]. Confirmation received and sent to scan. If patient calls to check status on above, please advise them to contact Pharmacy . * Telephone Encounter - Natacha Medrano - 09/29/2024 10:30 AM EST PA for Zepbound from [facility] placed on prescriber desk for signature. * [...] Description 11/20/2024 9:30 AM EDT Office Visit [facility] MEDICINE [address] [place] [address] Wendy Pang MD [address] [place] [address] 12/01/2024 11:15 AM EDT Office Visit [facility] OPTOMETRY [address] [place] [address] Magda Calero, OD [address] [place] [address] documented as of this encounter Visit Diagnoses Not on filedocumented in this encounter Additional Health Concerns Assessment Noted Time PHQ-9 Depression Total Score: 10 024 1:15 PM EDT documented as of this encounter Care Teams Legal Adviser Relationship Specialty Start Date End Date Wendy Pang MD [address] [place] [address] PCP - General Internal Medicine 02/23/23 documented as of this encounter
== END 2024-10-26 10:30 | disposition home or self-care (01) ==
LOC: HO.LAB 10:29
PROVIDERS: Visit Provider Anesthesiology
DX: M79.7 Fibromyalgia (principal); M15.0 Primary generalized (osteo)arthritis; G89.4 Chronic pain syndrome
CPT/HCPCS: 36415; 80053; 85025; 99202

== ENCOUNTER 2024-10-26 10:29 | Outpatient (AMB) | payer MEDICAID, SELFPAY ==
--- NOTE | 2024-10-26 10:35 | A.OFFVIS_ITS ---
Vital Signs 10/26/24 10:47 Height 5 ft 4 in Weight 214 lb 6 oz BMI 36.8 BP 176/86 H Blood Pressure Location Lt brachial Respiration 16 Pulse 100 Pulse Source Pulse Oximeter Pulse Oximetry (%) 99 Oxygen Delivery Method Room Air Intake Visit Reasons: Polythralgia Intake Note: Pain today 05/28 Journal Box Inspector Required: Yes Journal Box Inspector Language: Container Packer Operator Services: Journal Box Inspector Present Journal Box Inspector Name: Lana Accompanied by: Self / Same As Patient Allergies No Known Allergies Allergy (Verified 10/26/24 10:43) HPI Comments Details: Morris is very pleasant 54 years old [place]-speaking female who presents in my office with complains on widespread pain. She reports pain in the bilateral shoulders bilateral arms bilateral lower back. She reports that her pain is c onstant in nature. The pain is most severe in the morning and during the day. She reports her pain today 05/28. In terms of tissue damage he reports her pain as aching shooting and tiring exhausting sensation. She went for rheumatology office and was diagnose with fibromyalgia. She was sent to here to continue treatment. She also reports on severe pain in bilateral knees she reports crepitus with walking on bilateral knees. She had images of multiple joints results of which dictated as below. She never tried physical therapy however she tried 10s unit and she has 10s unit at home she applies 10s unit machine every 2 hours and reports moderate pain improvement. She is starting formal physical therapy on November 17. Her past medical history significant for diabetes hypertension anxiety and depression. She is currently taking duloxetine prescribed by primary care physician. Her past surgical history significant for 3 C sections. She denies smoking cigarettes denies drinking al cohol denies recreational drugs. [facility] Medical History (Updated 10/26/24 @ 12:18 by Jaden Valerio MD) Fibromyalgia Osteoarthritis Polyarthralgia Post traumatic stress disorder Constipation Cervical disc disease Generalized anxiety disorder Mixed hyperlipidemia Type 2 diabetes mellitus HTN (hypertension) Tachycardia Sleep apnea LGSIL on Pap smear of cervix Surgical History Hx of tubal ligation Hx of section Social History (Updated 06/19/24 @ 09:47 by MI Jacobson) Alcohol intake: never Patient Tobacco Use Status: Never used Tobacco Female Reproductive History Menstrual Age of Menarche: 12 Review of Systems Const Reports no additional complaints Card Reports no additional complaints Resp Reports no additional complaints GI Reports no additional complaints Reports no additional complaints Musc Reports as per [facility] Neuro Reports no additional complaints Psych Reports as per [facility] Physical Exam Vital Signs: Last Vital Signs Pulse 100 10/26/24 10:47 Resp 16 10/26/24 10:47 BP 176/86 H 10/26/24 10:47 Pulse Ox 99 10/26/24 10:47 Oxygen Delivery Method Room Air 10/26/24 10:47 BMI result Body Mass Index 36.8 Physical Examination CONSTITUITIONAL Patient alert and cooperative. Well appearing and in no apparent painful distress HEENT Conjunctiva and sclera clear. ?Pupils equal round and reactive to light. ?No lymphadenopathy. ?Normal dentition. No oral or nasal ulcers noted. No evidence of discoid rash to the kev of ears CHEST/RESPIRATORY SYSTEM Normal respiratory effort and able to speak in complete sentences. ?Clear to auscultation bilaterally. ?No crackles, rales, rhonchi, wheezes heard. CARDIAC SYSTEM Regular rate and rhythm. ?S1 and S2 heard no murmurs. 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 ?Heberden's and Kala's nodes noted. ?No synovitis noted to the MCPs, PIPs or DIPs. ?No tenderness to palpation of these joints. Wrists: ?Full range of motion at the wrists without pain. ?No tenderness to palpation or synovitis noted to the wrists. Elbows: Full range of motion without pain. No tenderness, weakness, swelling, increased warmth or erythema. Shoulders: Full range of motion without pain. No tenderness, weakness, swelling, increased warmth or erythema. Hips: Full range of motion without pain. Hip bursa: No tenderness to palpation Knees: ?Full range of motion. ?No tenderness, swelling, increased warmth or erythema.? Bilateral crepitations Ankles: Full range of motion. ?No tenderness, swelling, increased warmth or erythema.? Feet: ?Negative squeeze test. ?No tenderness to palpation or swelling of the MTPs. Tender points:? Tenderness to palpation of the neck, shoulders, chest, elbows, hips, buttocks or knees. SKIN Skin intact without rashes. Back/Spine/Pelvis Other: Flexing forward and flexing backwards both aggravate the pain of the patient however she reports that flexing backwards aggravate her pain more than flexing forward. There is tenderness on palpation in bilateral paraspinal spinal region most lower portion of the lumbar spine. Results Reviewed Results Reviewed: Knee XR 12/2022 FINDINGS: Bone alignment is normal. No fracture or dislocation. Arthritis at the medial femoral tibial and patellofemoral joints with joint space narrowing and osteophyte formation. Osteophyte at the quadriceps tendon insertion to the patella. No joint effusion. Knee XR 10/2023 FINDINGS: Again seen are tricompartmental degenerative changes most marked in the medial and patellofemoral compartments with narrowing. Some tibial plateau osteophytes are present both medially and laterally. No joint effusion or fracture is seen. C-Spine XR 05/2024 FINDINGS: Normal alignment. No fracture demonstrated. Mild to moderate multilevel degenerative disc disease which is most prominent at C6-C7. Assessment & Plan Assessment & Plan (1) Fibromyalgia: Code(s): M79.7 - Fibromyalgia Category: Medical (2) Osteoarthritis: Code(s): M19.90 - Unspecified osteoarthritis, unspecified site Category: Medical Qualifiers: Osteoarthritis location: multiple joints Osteoarthritis type: primary Qualified Code(s): M15.0 - Primary generalized (osteo)arthritis (3) Chronic pain syndrome: Code(s): G89.4 - Chronic pain syndrome Category: Medical Plan This patient is suffering from fibromyalgia and widespread osteoarthritis. I recommended her to start low impact aerobic exercise such as swimming, elliptical machine, or stationary bicycle. I also recommended her to go for physical therapy when it is scheduled perform physical therapy twice a week as well as continue home exercise program twice a week. In mid December she will schedule appointment with me. Her primary care physician is refusing to prescribe her duloxetine. I would like to start her on milnacipran however I need input on her depression and anxiety from psychiatrist before I do that. She was recommended by primary care physician to find psychiatrist for herself. I told her that if she wants me to start her on milnacipran I need her new psychiatrist to discuss the situation with me. Interventional pain management could be started by medial branch blocks L3-L4 does ramus L5 bilateral diagnostic. Sprint PNS could be employed or RFA could be performed on this patient if medial branch block will alleviate pain in her back. We can also try knee steroid injections and other applications of interventional pain management to treat her pain in the knees. The same thing could be tried for her shoulder pain. Orders: Orders Comprehensive Met. Panel Today M79.7 - Fibromyalgia Complete Blood Count Auto Diff Today M79.7 - Fibromyalgia Coding Level of Care Code New Pt Level 3 (80555) Diagnoses Fibromyalgia M79.7 Primary osteoarthritis involving multiple joints M15.0 Osteoarthritis location: multiple joints Osteoarthritis type: primary Chronic pain syndrome G89.4
[2024-10-26 10:47] VITALS: BP 176/86; PULSE 100; RESP 16; O2SAT 99; BMI 36.8
--- OUTSIDE RECORDS SUMMARY | 2024-10-26 11:50 | XMS_ITS | Encounter Summary ---
Author Organization [employer] Address [address] [facility] [address] [place] [address] Care Team Providers Care Manager Competitive Intelligence Name Role Phone Wendy Pang MD Primary Care Pro vider Reason for Visit * Reason Onset Date Comments Nurse Triage 10/15/2024 Encounter Details Date Type Department Care Team ([facility] st Contact Info) Description 10/15/2024 Telephone [facility] MEDICINE [address] [place] [address] Wendy Pang MD [address] [place] [address] Nurse Triage Social History Tobacco Use Types [...] with others, in a hotel, in a snf, living outside on the street, on a [...] encounter Miscellaneous Notes * Telephone Encounter - Vida Onofre RN - 10/15/2024 12:52 PM EST No marketing compliance manager needed as this racebook writer speaks [place]. Call returned to Jocelin hyde below. Reports having lower pelvic pain. Pt also having some vaginal spotting 3 days ago. Per pt its a burning sensation. Denies any urinary symptoms. No vaginal discharge. Pt did call [facility] [place] was advised needed to loss prevention specialist office in [place]( [facility]), called them and directed to [facility]. Pt prefers to be seen in PCP office. Pt advised of disposition, offered melissa today. Pt declines due to cold weather. Pt agrees to appt tomorrow with red team provider timothy. Reviewed home care advise, ER precautions and reasons to call back. Protocol Used: Pelvic Pain - Female (Adult) Protocol-Based Disposition: See in Office or Video Visit Today Future Appointments Date Time Provider Department Center 10/16/2024 12:00 PM Gladys Cee MD MEDICINE [facility] 10/26/2024 9:00 AM [facility] PHARMACIST MEDICINE [facility] 11/20/2024 9:30 AM Wendy Vance MD MEDICINE [facility] Insurance verified as active per Real Time Eligibility in [facility]. Positive Triage Question: * Mild to Moderate pain that comes and goes (cramps) and present > 48 hours * All higher-acuity triage questions were negative Care Advice Discussed: * Reassurance and Education - Mild to Moderate Pain Lasting Less Than 2 Hours * Reasons To Call Back - Severe pain lasts over 1 hour - Intermittent pain (comes and goes, cramps) lasts over 48 hours - You become worse * Telephone Encounter - Arnie Say - 10/15/2024 12:18 PM EST Symptom: Abdominal Pain - Female - Not Outcome: Talk to a nurse or provider within 15 minutes Reason: Severe pain now The caller accepted this outcome. documented in this encounter Plan of Treatment Upcoming Encounters Date Type Department Care Team (Late st Contact Info) Description 11/20/2024 9:30 AM EDT Office Visit [facility] MEDICINE [address] [place] [address] Wendy Pang MD [address] [place] [address] 12/01/2024 11:15 AM EDT Office Visit [facility] OPTOMETRY [address] [place] [address] Taranastasiia Magda, OD [address] [place] [address] documented as of this encounter Visit Diagnoses Not on filedocumented in this encounter Additional Health Concerns Assessment Noted Time PHQ-9 Depression Total Score: 10 024 1:15 PM EDT documented as of this encounter Care Teams Manager Competitive Intelligence Relationship Specialty Start Date End Date Wendy Pang MD [address] [place] [address] PCP - General Internal Medicine 02/23/23 documented as of this encounter
--- OUTSIDE RECORDS SUMMARY | 2024-10-26 11:50 | XMS_ITS ---
Author Organization [facility] Address [address] [place] [address] Care Team Providers Care Windows Server Support Technician Name Role Phone Michael Muller Primary Care Provider Allergies No Known Allergies REASON FOR VISIT [...] Problem Status W/U Status Risk Notes Problem [id number] Cervicalgia (M54.2) Active confirmed Problem [id number] History of sleep apnea (Z86.69) Active confirmed Problem [id number] History of asthma (Z87.09) Active confirmed Vital [...] Location Date Provider Diagnosis 401-Internal Medicine [address] [place] [address] 08/06/2023 Michael Ruiz Cervicalgia M54.2 ; History [...] MALIHA RUDOLPH LilliamPaula B:1970 (53 yo F)Acc No.[id number]:08/06/2023 Progress Note Patient:?Jocelin MACKEY Provider:?Michael Muller MD :1970???Age:53 Y???Sex:Female D ate:08/06/2023 Address:[address] [place] [address], [place] [address] Check In:10:28 AM ESTCheck O ut:11:27 AM [...] a history of sleep apnea diagnosed in [place]. She wasn't stephen to get a CPAP [...] * Images: Billing Information: * Visit Code:? 59722 Established Visit - Level 3 - 15min. * Procedure Codes:? * Sign off status: Completed true * Provider:?Michael Muller MD Date:? 023 Generated for Printi ng/Fatoddg/eTransmitting on:?10/26/2024 11:49 AM EDT History and Physical Notes * HPI (History of Present Illness) Category Sub-Category Detail Notes Category Not es Interim History Tests/Studies performed was xray Had consultation(s) Was hospitalized Emergency room visits New/Follow-up Symptom Cervical x-rays discussed with patient. 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 She wishes to see an orthopdist for tratment options. She reports a history of sleep apnea diagnosed in [place]. She wasn't stephen to get a CPAP [...]
--- OUTSIDE RECORDS SUMMARY | 2024-10-26 11:50 | XMS_ITS | Encounter Summary ---
Author Organization [employer] Address [address] [facility] [address] [place] [address] Care Team Providers Care Dance Entertainer Name Role Phone Wendy Pang MD Primary Care Pro vider Reason for Referral * Consultation (Routine) - Closed Specialty Diagnoses / Procedures Referred By Hawk t Referred To Contact Optometry Diagnoses Primary hypertension Gladys Cee MD [address] [place] [phone] Phone: tel: fax: [facility] OPTOMETRY [address] [place] [phone] Phone: tel: fax: Referral ID Status Reason Start Date Expiration Date V isits Requested Visits Authorized [id number] Closed Consult and Treat 10/16/2024 10/16/2025 1 1 Reason for Visit * Reason Comments Pelvic Pain Encounter Details Date Type Department Care Team (Late st Contact Info) Description 10/16/2024 12:00 PM EST Office Visit [facility] MEDICINE [address] [place] [phone] Gladys Cee MD [address] [place] [phone] Cervical paraspinous muscle spasm (Primary Dx); Mixed hyperlipidemia; Primary hypertension Social History Tobacco Use Types Packs/Day Years [...] with others, in a hotel, in a prison, living outside on the street, on a [...] 9:10 AM EDT Sexual Orientation Straight 04/28/2024 1 :15 PM EDT documented as of this encounter Last Filed Vital Signs Vital Sign Reading Time Taken Comments Blood Pressure 162/96 10/16/2024 11:49 AM EST Pulse 94 10/16/2024 11:49 AM EST Temperature 35.8 ??C (96.5 ??F) 10/16/2024 11:[address] Respiratory Rate 16 10/16/2024 11:49 AM EST Oxygen Saturation - - Inhaled Oxygen Concentration - - Weight 98.7 kg (217 lb 8 oz) 10/16/2024 11:49 AM EST Height 157.5 cm (5' 2 ) 10/16/2024 11:49 AM EST Body Mass Index 39.78 10/16/2024 11:49 AM EST documented in this encounter Miscellaneous Notes * Assessment & Plan Note - Anita Barrett MA - 10/16/2024 2:22 PM EST Associated Problem(s): Primary hypertension Uncontrolled due to being out of medication. Refill sent to pharmacy. Referral to eye clinic per patient's request. * Assessment & Plan Note - Anita Barrett MA - 10/16/2024 2:20 PM EST Associated Problem(s): Mixed hyperlipidemia Refill of Atorvastatin was sent to pharmacy. 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 Advised to continue massage rollers and come to acupuncture clinic. Gave her information regarding PT referral so she can reschedule. Take Tylenol + Flexeril at bedtime and continue Ibuprofen during the daytime. documented in this encounter Plan of Treatment Upcoming Encounters Date Type Department Care Team (Late st Contact Info) Description 11/20/2024 9:30 AM EDT Office Visit [facility] MEDICINE [address] [place] [address] Wendy Pang MD [address] [place] [address] 12/01/2024 11:15 AM EDT Office Visit [facility] OPTOMETRY [address] [place] [address] Magda Calero, OD [address] [place] [address] Scheduled Referrals Name Type Priority Associated Diagnoses Orde r Schedule Referral to Optometry Outpatient Referral Routine Primary hypertension Expected: 10/16/2024 (Approximate), Expires: 10/16/2025 documented as of this encounter Visit Diagnoses Diagnosis Cervical paraspinous muscle spasm- Primary Spasm of muscle Mixed hyperlipidemia Primary hypertension Unspecified essential hypertension documented in this encounter Additional Health Concerns Assessment Noted Time PHQ-9 Depression Total Score: 024 1:15 PM EDT documented as of this encounter Care Teams Dance Entertainer Relationship Specialty Start Date End Date Wendy Pang MD [address] [place] [phone] PCP - General Internal Medicine 02/23/23 documented as of this encounter
--- OUTSIDE RECORDS SUMMARY | 2024-10-26 11:50 | XMS_ITS | Encounter Summary ---
Author Organization [employer] Address [address] [facility] [address] [place] [address] Care Team Providers Care Licensed Loan Officer Name Role Phone Wendy Pang MD Primary Care Pro vider Reason for Referral * Consultation (Routine) - Closed Specialty Diagnoses / Procedures Referred By Hawk pruitt Referred To Contact Physical Therapy Diagnoses Chronic low back pain, unspecified back pain laterality, unspecified whether sciatica present Blank Gage CNP [address] [place] [address] Phone: tel: fax: [facility] [address] [place] [address] Phone: tel: fax: Referral ID Status Reason Start Date Expiration Date V isits Requested Visits Authorized [id number] Closed Specialty Services Required 10/07/2024 10/07/2025 20 20 * Consultation (Routine) - Authorized Specialty Diagnoses / Procedures Referred By Hawk pruitt Referred To Contact Pain Medicine Diagnoses Polyarthralgia Blank Gage CNP [address] [place] [address] Phone: tel: fax: [address] Phone: tel: fax: Referral ID Status Reason Start Date Expiration Date Visits Requested Visits Authorized [id number] Authorized Specialty Services Required 10/07/2024 10/07/2025 6 6 Reason for Visit * Reason Comments Follow-up Encounter Details Date Type Department Care Team (Latest Contact Info) Description 10/07/2024 11:15 AM EST Office Visit [facility] [address] [place] [address] Blank Gage CNP [address] [place] [address] Polyarthralgia (Primary Dx); Chronic bilateral low back pain with bilateral sciatica; Intractable 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 aura and without [...] with others, in a hotel, in a correction, living outside on the street, on a [...] Progress Notes * Blank Gage CNP - 10/07/2024 11:15 AM EST Subjective Patient ID: Jocelin Durán is a 54 y.o. female who presents for f/u. Pain from hip down, lower back pain reporting numbness and tingling in lower extremities, denies changes in BM or urination, denies saddle anesthesia. Pt reports that the propranolol has been effective for her migraines. HPI Last visit was 08/2024. At this time gabapentin reduced from 800-600mg d/t daytime drowsiness, Considered lyrica if gabapentin 600mg is ineffective. Pt also referred to pain medicine and rheum. Has appt for rheumatology at the end of October Pt also provided with prophylactic migraine therapy d/t hx of chronic migraines: propranolol 20 mg BID. Review of Systems Constitutional: Negative for appetite change, chills, diaphoresis, fatigue, fever and unexpected weight change. Respiratory: Negative for apnea, cough, chest tightness, shortness of breath and wheezing. Cardiovascular: Negative for chest pain and palpitations. Gastrointestinal: Negative for abdominal distention, abdominal pain, blood in stool, constipation, diarrhea, nausea and vomiting. Musculoskeletal: Positive for back pain. Skin: Negative for pallor. Neurological: Positive for numbness. Negative for dizziness, syncope, speech difficulty, weakness, light-headedness and headaches. Objective Physical Exam Constitutional: Appearance: Normal appearance. She is normal weight. Cardiovascular: Rate and Rhythm: Normal rate and regular rhythm. Pulses: Normal pulses. Heart sounds: Normal heart sounds. No murmur heard. No friction rub. No gallop. Pulmonary: Effort: Pulmonary effort is normal. No respiratory distress. Breath sounds: Normal breath sounds. No wheezing or rales. Musculoskeletal: Lumbar back: Tenderness present. No swelling, edema, deformity, signs of trauma or spasms. Normal range of motion. Positive right straight leg raise test and positive left straight leg raise test. Right lower leg: No swelling or tenderness. No edema. Left lower leg: No swelling or tenderness. No edema. Comments: Tenderness to palpation of lumbar spine and over both SI joints Neurological: General: No focal deficit present. Mental Status: She is alert and oriented to person, place, and time. Sensory: Sensory deficit present. Comments: Loss of sensation in lower legs (dermatome s1,s2) Psychiatric: Mood and Affect: Mood normal. Behavior: Behavior normal. Thought Content: Thought content normal. Judgment: Judgment normal. Assessment/Plan Problem List Items Addressed This Visit Polyarthralgia - Primary Plan to discontinue gabapentin and trial lyrica, script sent Plan to refer to PT and pain medicine, pt agreeable to plan Relevant Medications pregabalin (Lyrica) 75 MG capsule Other Relevant Orders Referral to Pain Medicine Intractable 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 aura and without status migrainosus Controlled with propranolol Will continue with current tx Relevant Medications propranolol (Inderal) 20 MG tablet Chronic low back pain No LBP red flags Plan to obtain lumbar XR Plan to refer to PT and pain medicine, pt agreeable to plan Advised pt that exercise is also very therapeutic for chronic pain F/u with pcp in 2 months may rtc sooner if sx worsen Relevant Orders Referral to Physical Therapy [facility] INFECTIOUS DISEASE PHYSICIAN Attestation INFECTIOUS DISEASE PHYSICIAN Resident Attestation: Patient was seen and evaluated by Blank Gage CNP, in collaboration with Shilpa Martell MDwho has reviewed my assessment and plan. I, Shilpa Martell MD , have reviewed the resident's note and agree with the assessment & plan of care as documented above. documented in this encounter Miscellaneous Notes * Assessment & Plan Note - Blank Gage CNP - 10/09/2024 12:32 PM EST Associated Problem(s): Chronic low back pain No LBP red flags Plan to obtain lumbar XR Plan to refer to PT and pain medicine, pt agreeable to plan Advised pt that exercise is also very therapeutic for chronic pain F/u with pcp in 2 months may rtc sooner if sx worsen * Assessment & Plan Note - Blank Gage CNP - 10/09/2024 12:31 PM EST Associated Problem(s): Polyarthralgia Plan to discontinue gabapentin and trial lyrica, script sent Plan to refer to PT and pain medicine, pt agreeable to plan * Assessment & Plan Note - Blank Gage CNP - 10/09/2024 12:30 PM EST Associated Problem(s): Intractable 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 aura and without status migrainosus Controlled with propranolol Will continue with current tx * Result Encounter Note - Blank Gage CNP - 10/07/2024 11:15 AM EST Please reach out to patient with imaging results. You can let her know that there are mild degenerative changes in both SI joints which is a typical finding given her age. I recommend her to follow up with physical therapy (referral was placed at our last visit and letter was sent home) and continue with her current medication regimen for pain control. documented in this encounter Plan of Treatment Upcoming Encounters Date Type Department Care Team (Late st Contact Info) Description 11/20/2024 9:30 AM EDT Office Visit [facility] [address] [place] [id number] Wendy Pang MD [address] [place] [address] 12/01/2024 11:15 AM EDT Office Visit [facility] [address] [place] [address] Magda Calero, OD [address] [place] [address] Scheduled Referrals Name Type Priority Associated Diagnoses Orde r Schedule Referral to Pain Medicine Outpatient Referral Routine Polyarthralgia Expected: 10/07/2024 (Approximate), Expires: 10/07/2025 Referral to Physical Therapy Outpatient Referral Routine Chronic bilateral low back pain with bilateral sciatica Expected: 10/07/2024 (Approximate), Expires: 10/07/2025 documented as [...] AM EST Narrative 10/08/2024 11:43 AM EST ?[facility] ?[address] [facility]. ?[place] [address] ?XRay Report ? Signed ? Patient: Thompsonkarine Durán,Jocelin ?M ?? R#: [id number] ? : 1970 ?Acct:[id number] ? Age/Sex: 54 / F ?ADM Date: 02/20/25 ? Loc: HO.HHCX ? Attending : Alexxis Gage INFECTIOUS DISEASE PHYSICIAN ? Ordering Physician: Blank Gage ?? Date of Service: 10/08/24 ?? Procedure(s): XR lumbar spine 4V min ?? Accession Number(s): [id number] ? cc: Blank Gage ? EXAMINATION: ?? [...] DD/ 1052 ? TD/TT: 10/08/24 1100 ? Silverware Supervisor: ? Procedure Note Syed, Image - 10/08/[address] [address] XRay Report Signed Patient: Jo Auguste R#: [id number] : 1970Acct:[id number] Age/Sex: 54 / FADM Date: 10/08/24 Loc: HO.HHCX Attending Dr: Blank Gage INFECTIOUS DISEASE PHYSICIAN Ordering Physician: Blank Gage Date of Service: 10/08/24 Procedure(s): XR lumbar spine 4V min Accession Number(s): [id number] cc: Blank Gage EXAMINATION: XR LUMBOSACRAL SPINE [...] by: Jose Palacios MD 10/08/2024 11:40 AM [facility] [place] [place] Dictated By: Jose Palacios MD Signed By: <Electronically signed by Jose Palacios MD in OV> 10/08/24 1140 DD/ 1052 TD/TT: 10/08/24 1100 Silverware Supervisor: [facility] INSPECTOR [employer] IMG XR PROCEDURES Final R esult documented in this encounter Visit Diagnoses Diagnosis Polyarthralgia- Primary Pain in joint, multiple sites Chronic bilateral low back pain with bilateral sciatica Intractable 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 aura and without status migrainosus documented in this encounter Additional Health Concerns Assessment Noted Time PHQ-9 Depression Total Score: 10 024 1:15 PM EDT documented as of this encounter Care Teams Licensed Loan Officer Relationship Specialty Start Date End Date Wendy Pang MD [address] [place] [id number] PCP - General Internal Medicine 02/23/23 documented as of this encounter
--- OUTSIDE RECORDS SUMMARY | 2024-10-26 11:50 | XMS_ITS | Encounter Summary ---
Author Organization [employer] Address [address] [facility] [address]t [place] [address] Care Team Providers Care Research Group Director Name Role Phone Wendy Pang MD Primary Care Pro vider Reason for Visit * Reason Onset Date Comments Accamodation Letter 06/25/2024 Encounter Details Date Type Department Care Team ([facility] st Contact Info) Description 06/25/2024 Telephone [facility] [address] [place] [address] Wendy Pang MD [address] [place] [address] Accamodation Letter Social History Tobacco Use Types [...] with others, in a hotel, in a skilled nursing, living outside on the street, on a [...] any questions you can contact pt at [phone]. 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) documented in this encounter Plan of Treatment Upcoming Encounters Date Type Department Care Team (Late st Contact Info) Description 11/20/2024 9:30 AM EDT Office Visit [facility] [address] [place] [address] Wendy Pang MD [address] [place] [address] 12/01/2024 11:15 AM EDT Office Visit [facility] [address] [place] [address] Magda Calero, OD [address] [place] [address] documented as of this encounter Visit Diagnoses Not on filedocumented in this encounter Additional Health Concerns Assessment Noted Time PHQ-9 Depression Total Score: 10 024 1:15 PM EDT documented as of this encounter Care Teams Research Group Director Relationship Specialty Start Date End Date Wendy Pang MD [address] [place] [phone] PCP - General Internal Medicine 02/23/23 documented as of this encounter
--- OUTSIDE RECORDS SUMMARY | 2024-10-26 11:50 | XMS_ITS | Encounter Summary ---
Author Organization [employer] Address [address] [facility] [address]t [place] [address] Care Team Providers Care Cartridge Loading Operator Name Role Phone Wendy Pang MD Primary Care Pro vider Reason for Visit * Reason Comments Med Refill Encounter Details Date Type Department Care Team (Late st Contact Info) Description 10/26/2024 Refill [facility] [address] [place], [place] [phone] Patria Pappas ANP [address] [place], [place] [phone] Social History Tobacco Use Types Packs/Day Years Used Date Smoking Tobacco: Never Smokeless Tobacco: Never Alcohol Use Standard Drinks/Week Comments Never 0 (1 standard drink = 0.6 oz pur e alcohol) Depression Answer Date Recorded Patient Health Questionnaire-9 Score 04/28/2024 Patient Health Questionnaire-9 Score 04/28/2024 Last PHQ-9: Questionnaire Data Not on [...] Description 11/20/2024 9:30 AM EDT Office Visit [facility] [address] [place] [address] Wendy Pang MD [address] [place] [address] 12/01/2024 11:15 AM EDT Office Visit [facility] OPT[facility] [address] [place] [address] TarMagda laurent, OD [address] [place] [address] documented as of this encounter Visit Diagnoses Not on filedocumented in this encounter Additional Health Concerns Assessment Noted Time PHQ-9 Depression Total Score: 10 024 1:15 PM EDT documented as of this encounter Care Teams Cartridge Loading Operator Relationship Specialty Start Date End Date Wendy Pang MD [address] [place] [phone] PCP - General Internal Medicine 02/23/23 documented as of this encounter
--- OUTSIDE RECORDS SUMMARY | 2024-10-26 11:50 | XMS_ITS | Encounter Summary ---
Author Organization [employer] Address [address] [facility] 7t [place] [address] Care Team Providers Care Repairer Typewriter Name Role Phone Wendy Pang MD Primary Care Pro vider Reason for Visit * Reason Onset Date Comments Durable Medical Equipment 06/23/2024 Prior Authorization 06/23/2024 Encounter Details Date Type Department Care Team ([facility] st Contact Info) Description 06/23/[address] 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 Please contract pt at [phone]. (Turkmen Speaker) documented in this encounter Plan of Treatment Upcoming Encounters Date Type Department Care Team (Late st Contact Info) Description 11/20/2024 9:30 AM EDT Office Visit [facility] [address] [place] [address] Wendy Pang MD [address] [place] [address] 12/01/2024 11:15 AM EDT Office Visit [facility] OPT[facility] [address] [place] [address] Magda Calero, OD [address] [place] [address] documented as of this encounter Visit Diagnoses Not on filedocumented in this encounter Additional Health Concerns Assessment Noted Time PHQ-9 Depression Total Score: 10 024 1:15 PM EDT documented as of this encounter Care Teams Repairer Typewriter Relationship Specialty Start Date End Date Wendy Pang MD [address] [place] [phone] PCP - General Internal Medicine 02/23/23 documented as of this encounter
--- OUTSIDE RECORDS SUMMARY | 2024-10-26 11:50 | XMS_ITS | Clinical Summary ---
Author Organization [employer] Address [address] [facility] 7t [place] [address] Care Team Providers Care Inside B2B Sales Name Role Phone Wendy Pang MD Primary [...] complication, without long-term current use of insulin ([facility]) TAKE 1 TABLET BY MOUTH EVERY DAY [...] of 40.0 to 44.9 in adult ([facility]) Inject 0.25 mg subcutaneously once a week for weeks 1-4 2 mL 3 Active Semaglutide-Weig ht Management (Wegovy) 0.5 MG/0.5ML solution auto-injectorInd ications:Class 3 severe obesity due to excess calories without serious comorbidity with body mass index (BMI) of 40.0 to 44.9 in adult ([facility]) Inject 0.5 mg subcutaneously weekly on weeks 5-8 2 mL 3 024 Active ibuprofen 800 MG tablet 800 mg. Active propranolol (Inderal) 20 MG tabletIndication s:Intractable 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 aura and without status migrainosus Take 1 tablet (20 mg) by mouth 2 times daily. 60 tablet 11 025 2025 Active pregabalin (Lyrica) 75 MG capsuleIndicatio ns:Polyarthralgi a Take 1 capsule (75 mg) by mouth 2 times daily. 60 capsule 1 025 2025 Active acetaminophen (Tylenol Extra Strength) 500 MG tablet Take 1 tablet (500 mg) by mouth every 6 (six) hours if needed for mild pain. 120 tablet 025 2024 Active cyclobenzaprine (Flexeril) 10 MG tablet Take 1 tablet (10 mg) by mouth at bedtime for 10 days. 10 tablet Active atorvastatin (Lipitor) 20 MG tabletIndication s:Mixed hyperlipidemia TAKE 1 TABLET BY MOUTH EVERY DAY 90 tablet Active losartan-hydroCH LOROthiazide (Hyzaar) 100-12.5 MG tablet TAKE 1 TABLET BY MOUTH EVERY DAY 90 tablet Active gabapentin (Neurontin) 600 MG tabletIndication s:Polyarthralgia Take 1 tablet (600 mg) by mouth at bedtime. 30 tablet 025 2024 Discontinued(I neffective) propranolol (Inderal) 20 MG tabletIndication s:Intractable 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 aura and without status migrainosus Take 1 tablet (20 mg) by mouth 2 times daily. 60 tablet 025 2024 Discontinued(R eorder (will not trigger notification to Pharmacy)) atorvastatin (Lipitor) 20 MG tabletIndication s:Mixed hyperlipidemia TAKE 1 TABLET BY MOUTH EVERY DAY 90 tablet 025 2024 Discontinued(R eorder (will not trigger notification to Pharmacy)) losartan-hydroCH LOROthiazide (Hyzaar) 100-12.5 MG tablet TAKE 1 TABLET BY MOUTH EVERY DAY 90 tablet 025 2024 Discontinued(R eorder (will not trigger notification to Pharmacy)) Tirzepatide-Weig ht Management (Zepbound) 2.5 MG/0.5ML solution auto-injectorInd ications:Obesity Inject 0.5 mL (2.5 mg) under the skin 1 (one) time per week. 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 Advised to continue massage rollers and come to acupuncture clinic. Gave her information regarding PT referral so she can reschedule. Take Tylenol + Flexeril at bedtime and continue Ibuprofen during the daytime. Cystitis 09/16/2024 LGSIL on Pap smear of cervix 09/16/2024 Postmenopausal bleeding 09/16/2024 Suprapubic pain 09/16/2024 Intractable 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 aura and without status migrainosus 09/04/2024 Assessment & Plan (10/09/2024 12:30 PM EST): Controlled with propranolol Will continue with current tx Assessment & Plan (09/04/2024 9:45 AM EST): Neuro exam wnl, no JOSHUA red flags Pt has hx of migraines, was receiving a medication from [place], not sure of the name Will start pt on migraine prophylactic therapy: propranolol 20mg BID, reviewed side effects with patient Will f/u in 1 month CTS (carpal tunnel syndrome) 04/29/2024 Health care maintenance 04/28/2024 Transaminitis 04/28/2024 GERD (gastroesophageal reflux disease) Obesity 04/28/2024 Leg mass, left 04/28/2024 Polyarthralgia 01/17/2024 Assessment & Plan (10/09/2024 12:31 PM EST): Plan to discontinue gabapentin and trial lyrica, script sent Plan to refer to PT and pain medicine, pt agreeable to plan Assessment & Plan (09/04/2024 9:49 AM EST): [...] be contacted with results Primary hypertension 11/13/2022 Assessment & Plan (10/16/2024 2:22 PM EST): Uncontrolled due to being out of medication. Refill sent to pharmacy. Referral to eye clinic per patient's request. Prediabetes 11/13/2022 Assessment & Plan (09/04/2024 9:44 [...] moderate- and vigorous-intensity activity Mixed hyperlipidemia 11/13/2022 Assessment & Plan (10/16/2024 2:20 PM EST): Refill of Atorvastatin was sent to pharmacy. Hypothyroidism 11/13/2022 Generalized anxiety disorder 11/13/2022 MACARIO (obstructive sleep apnea) 11/13/2022 Cervical disc disease 11/13/2022 Constipation 11/13/2022 Encounters Date Type Department Care Team Description 10/26/[address] [address] Patria Pappas ANP 10/16/2024 12:00 PM EST Office Visit [address] [address] Gladys Cee MD Cervical paraspinous muscle spasm (Primary Dx); Mixed hyperlipidemia; Primary hypertension 10/16/2024 Travel 10/15/[address] [address] Wendy Pang MD Chart prep 10/15/[address] [address] Wendy Pang MD Medical Question 10/15/[address] [address] Wendy Pang MD Nurse Triage 10/14/[address] [address] Wendy Pang MD Results 10/07/2024 11:15 AM EST Office Visit [address] [address] Blank Gage CNP Polyarthralgia (Primary Dx); Chronic bilateral low back pain with bilateral sciatica; Intractable 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 aura and without status migrainosus 09/29/2024 Telephone [facility] [address] [place] [address] Wendy Pang MD Prior Authorization (Zepbound) 09/29/2024 Telephone [facility] [address] [place] [address] Wendy Pang MD Chart Prep 09/29/2024 Orders Only [facility] [address] [place] [address] Mychal Raymond MD 09/24/2024 Refill [facility] [address] [place] [address] Guadalupe Grimes RN 09/14/2024 Refill [facility] [address] [place], [place] [phone] Wendy Pang MD Mixed hyperlipidemia 09/04/2024 9:15 AM EST Office Visit [address] [address] Blank Gage, APRIL Polyarthralgia (Primary Dx); Type 2 diabetes mellitus without complication, without long-term current use of insulin ([facility]); Intractable 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 aura and without status migrainosus 09/03/[address] [address] Wendy Pang MD Chart Prep 09/03/[address] [address] Wendy Pang MD Nurse Triage 08/21/2024 Telephone [facility] [address] [place] [address] Luca Quezada MD 08/14/[address] [address] Wendy Pang MD Nurse Triage 08/14/[address] [address] Wendy Pang MD Referral 08/13/2024 Telephone [facility] [address] [place] [address] [place] [address] Wendy Pang MD 08/06/2024 Patient Outreach [facility] [address] [place] [address] Wendy Pang MD Care Coordination ([facility] outreach for SDOH PT-1 - unable to LVM ) 08/06/2024 Telephone [facility] [address] [place] [address] Wendy Pang MD PT-1 08/05/[address] [address] Jamila Price [place] 08/05/2024 Patient Outreach [address] [address] Wendy Pang MD Care Coordination ([facility] outreach for [facility] PT-1 - LVM ) 08/04/[address] [address] Wendy Pang MD PT-1 07/28/2024 10:00 AM EST Clinical Support [facility] [address] [place] [address] Hollie Desai RN Primary hypertension 07/28/2024 Travel from Last 3 Months Immunizations Name Administration Dates Next Due Influenza, seasonal, injectable, preservative fr ee 06/16/2024 Tdap 04/28/2024 Zoster, Recombinant 10/26/2024 Family History Medical History Relation Name Comments [...] others, in a hotel, in a senior care, living outside on the street, on a [...] 16 10/16/2024 11:49 AM EST Oxygen Saturation 98% 10/07/2024 11:20 AM EST Inhaled Oxygen Concentration - - Weight 98.7 kg (217 lb 8 oz) 10/16/2024 11:49 AM EST Height 157.5 cm (5' 2 ) 10/16/2024 11:49 AM EST Body Mass Index 39.78 10/16/2024 11:49 AM EST Plan of Treatment Upcoming Encounters Date Type Department Care Team (Late st Contact Info) Description 11/20/2024 9:30 AM EDT Office Visit [facility] [address] [place] [address] Wendy Pang MD [address] [place] [address] 12/01/2024 11:15 AM EDT Office Visit [facility] [address] [place] [address] Magda Calero, OD [address] [place] [address] Health Maintenance Due Date Last Done Comments CT Colonography 1970 FIT DNA/Cologuard 1970 FIT 1970 FOBT 1970 Sigmoidoscopy 1970 Diabetes: Foot Exam 1980 Eye Exam 1980 Alcohol/Substance Use Screening 1982 Hepatitis B Vaccines (1 of 3 - 19+ 3-dose series) 1989 Pneumococcal Vaccine: 50+ Years (1 of 2 - PCV) 1989 Colonoscopy 01/09/2024 Colorectal Cancer Screening 01/09/2024 COVID-19 Vaccine (1 - 2023-2 5 season) 2024 Depression Monitoring (PHQ-9) 10/26/2024, 04/28/2024 Diabetes: Hemoglobin A1C 12/11/202406/12/ 024, 12/30/2023 Zoster Vaccines (2 of 2) 12/21/2024 10/26/2024 SDOH Screening 01/14/2025 01/15/2024 Cervical Cancer Screening 02/10/2025 HPV/Cotest 02/10/2025 01/09/2024, 01/08/2024, 12/12/2022 Pap Smear 02/10/2025 01/09/2024, 01/08/2024, 12/12/2022 Mammogram 02/26/2025 02/27/2024, 01/21/2023, 01/21/2023 Depression Screening 04/28/2025 04/28/2024, 04/28/2024 Diabetes: Urine Protein Screening 06/12/2025 06/12/2024 Lipid Panel 06/12/2025 06/12/2024 Tobacco Screening 10/16/2025 10/16/2024 DTaP/Tdap/Td Vaccines (2 - T d or [...] complication, without long-term current use of insulin ([facility]) ALBUMIN, RANDOM URINE W/CREATININE Routine 06/12/2024 11:40 [...] AM EST Narrative 10/08/2024 11:43 AM EST ?[facility] ?[address] ?[place] [address] ?XRay Report ? Signed ? Patient: Jocelin Auguste ?M ?? R#: [id number] ? : 1970 ?Acct:[id number] ? Age/Sex: 54 / F ?ADM Date: 10/08/24 ? Loc: HO.HHCX ? Attending Dr: Blank Gage OPERATIONAL TRAINER ? Ordering Physician: Blank Gage ?? Date of Service: 10/08/24 ?? Procedure(s): XR lumbar spine 4V min ?? Accession Number(s): [id number] ? cc: Blank Gage ? EXAMINATION: ?? [...] DD/ 1052 ? TD/TT: 10/08/24 1100 ? Yoker Machine Operator: ? Procedure Note Carline Lynch - 10/08/[address] [address] XRay Report Signed Patient: Jo Auguste R#: [id number] : 1970Acct:[id number] Age/Sex: 54 / FADM Date: 10/08/24 Loc: HO.HHCX Attending Dr: Blank Gage OPERATIONAL TRAINER Ordering Physician: Blank Gage Date of Service: 10/08/24 Procedure(s): XR lumbar spine 4V min Accession Number(s): [id number] cc: Blank Gage EXAMINATION: XR LUMBOSACRAL SPINE [...] Jose Palacios MD 10/08/2024 11:40 AM EST Workstation: [id number] Dictated By: Jose Palacios MD Signed By: <Electronically signed by Jose Palacios MD in OV> 10/08/24 1140 DD/ 1052 TD/TT: 10/08/24 1100 Yoker Machine Operator: [facility] IMG XR PROCEDURES Final R esult * POCT Glucose (09/04/2024 9:24 AM EST) Glucose Blood, POC 160 60 - 200 mg/dL QC Media Lot # [id number] Lot# Expiration Date Blood Capillary blood specimen / Unknown 09/04/2024 9:24 AM EST Result [facility] POINT OF CARE TEST ENTER/ EDIT ORDERABLES Final Result * Albumin, Random Urine W/Creatinine (06/12/2024 11:40 AM EDT) Creatinine, Urine 195.62 mg/dL [facility] Microalbumin Urine 41.0 mg/L [facility] Microalbum Creatinine Ratio Ur 20.9 <30 ug/mg cr [facility] Comment:Albumin/Creatinine R atio Reference Ranges: Normal: < 30 ug/mg creatinine Microalbuminuria: 30 - 300 ug/mg creatinineClinical Albuminuria: > 300 ug/mg creatinine Urine (Urine, Random) 06/12/2024 11:40 AM EDT 06/12/2024 1:08 PM EDT Wendy Vance MD LAB URINE ORDERAB LES Final Result [facility] [address] [place] [phone] * Hepatitis C Antibody with Reflex to HCV, RNA, Quantitative, Real-Time PCR (06/12/2024 11:39 AM EDT) Hepatitis C Antibody Nonreactive Nonreactive [facility] Comment:Antibodies to HCV no t detected; does not exclude early acuteHCV infection. Blood Venous blood specimen / Unknown 06/12/2024 11:39 AM EDT 06/12/2024 1:19 PM EDT us Wendy Vance MD LAB BLOOD ORDERAB LES Final Result Performing Organization Address [facility] de Phone Number [facility] [address] [place] [phone] * HIV-1/2 Antigen and Antibodies, Fourth Generation, with Reflexes (06/12/2024 11:39 AM EDT) HIV AB/AG Nonreactive Nonreactive [facility] Comment:HIV-1 p24 Ag and/or HIV-1/HIV-2 Ab not detected.A test result that is nonreactive does not exclude thepossibility of exposure to or infection with HIV-1 and/orHIV-2. Nonreactive results in this assay for individualswith prior exposure to HIV-1 and/or HIV-2 may be due toantigen and antibody levels that are below the limit ofdetection of this assay.The [employer] HIV Ag/Ab Combo assay result andsupplemental assay results should be interpreted inconjunction with the patient's clinical presentation,history and other laboratory results. If the results areinconsistent with clinical evidence, additional testing issuggested to confirm the result. Blood Venous blood specimen / Unknown 06/12/2024 11:39 AM EDT 06/12/2024 1:19 PM EDT us Wendy Vance MD LAB BLOOD ORDERAB LES Final Result Performing Organization Address [facility]/ZIP Co de Phone Number [facility] [address] [place] [phone] * Hemoglobin A1c (06/12/2024 11:39 AM [...] patient sample. Estimated Average Glucose 117 mg/dL [facility] Comment:eAG = Estimated ave rage glucose which is %A1C expressed asaverage glucose, using the formula of the R8M-DjwuovyBshgadd Glucose study (ADAG), Diabetes Care, Vol.31,#8,Mar. 2007 Blood Venous blood specimen / Unknown 06/12/2024 11:39 AM EDT 06/12/2024 1:19 PM EDT Wendy Vance MD LAB BLOOD ORDERAB LES Final Result Performing Organization Address [facility]/ZIP Co de Phone Number [facility] [address] [place] [phone] * (ABNORMAL) Lipid Panel, Standard (06/12/2024 11:39 AM EDT) Triglycerides 113 <150 mg/dL [facility] Comment:Desirable Triglyceri de: less than 150 mg/dLBorderline High Triglyceride 150-199 mg/dLHigh Triglyceride: 200-499 mg/dLVery High Triglyceride: greater than or equal to 5OO mg/dL Cholesterol 232(H) <200 mg/dL [facility] Comment:Desirable Cholestero l: less than 200 mg/dLBorderline High Cholesterol: 200-239 mg/dLHigh Cholesterol: greater than 239 mg/dL LDL Cholesterol Calculated 155(H) <100 mg/dL [facility] Comment:Desirable LDL: less than 100 mg/dLNear Optimal/Above Optimal LDL: 110- 129 mg/dLBorderline High LDL: 130-159 mg/dLHigh LDL: 160-189 mg/dLVery High LDL: greater than or equal to 190 mg/dL HDL Cholesterol 55 >40 mg/dL [facility] Comment:Desirable HDL: great er than 40 mg/dL Note: This HDL assay may give artificially low results in patients with liver disease. Blood Venous blood specimen / Unknown 06/12/2024 11:39 AM EDT 06/12/2024 1:19 PM EDT us Wendy Vance MD LAB BLOOD ORDERAB LES Final Result [facility] [address] [place] [address] [phone] * BI Mammogram Screening Tomosynthesis Bilateral (02/27/2024 11:03 AM EDT) Anatomical Region Laterality Modality Breast Bilateral Mammography 02/27/2024 11:0 3 AM EDT Narrative 03/23/2024 10:37 PM EDT ? [facility] [place] ? [address] ?[place] [address] ? Mammography Report ? Signed ? Patient: Jocelin Auguste ?M ?? R#: [id number] ? : 1970 ?Acct:[id number] ? Age/Sex: 53 / F ?ADM Date: 07/11/24 ? Loc: HO.MAMMO ? Attending Dr: Ronni Bautista MD ? Ordering Physician: Ronni Bautista MD ?Results: 1Negativ ?? e ? Date of Service: 02/27/24 ?Follow Up: 1 Year From Orig ?? inal Mammogram ? Procedure(s): MM tomosynthesis screening BI ?? Accession Number(s): [id number] ? cc: Wendy Pang MD; Ronni Bautista [...] MD in OV> ? 03/23/242232 ? DD/ 02 ? TD/TT: ? Yoker Machine Operator: ? Procedure Note Carline Lynch - 03/23/2024 [facility] [address] [place], [place] [address] Mammography Report Signed Patient: Jo Auguste R#: [id number] : 1970Acct:[id number] Age/Sex: 53 / FADM Date: 02/27/24 Loc: HO.MAMMO Attending Dr: Ronni Bautista MD Ordering Physician: Ronni Bautista MDResults: 1Negativ e Date of Service: 02/27/24Follow Up: 1 Year From Orig ina Mammogram Procedure(s): MM tomosynthesis screening BI Accession Number(s): [id number] cc: Wendy Pang MD; Ronni Bautista MD [...] in OV> 03/23/24 2233 DD/ 1103 TD/TT: Yoker Machine Operator: [facility] External Provider IMG BI PROCEDURES Final Result * Colposcopy (02/11/2024 9:20 AM EDT) Historical Provider IN CLINIC/BEDSIDE ORDERAB LES Edited Result - Final * (ABNORMAL) PAP/HPV (01/09/2024 9:20 AM EDT) Pap Smear 1. NILM 1. NILM HPV Detected(A ) Undetected, Indeterminate , Quantitative, Not Detected us Historical Provider HEALTH MAINTENANCE Edited Result - Final from Last 3 Months or Most Recently Relevant to Health Maintenance Insurance [employer] C3 Care Teams Inside B2B Sales Relationship Specialty Start Date End Date Wendy Pang MD [address] [place] [address] PCP - General Internal Medicine 02/23/23
--- OUTSIDE RECORDS SUMMARY | 2024-10-26 11:50 | XMS_ITS | Patient Health Record ---
Author Organization [facility] enter Address [address] [place] [address] Care Team Providers Care Rail Technician Name Role Phone Michael Muller Primary Care Provider Allergies No Known Allergies Reason For Referral [...] Problem Status W/U Status Risk Notes Problem 92445389 Cervicalgia (M54.2) Active confirmed Problem 37263364679251 Morbid (severe) obesity due to excess calories (E66.01) Active confirmed Problem 010243123 Acquired hypothyroidism (E03.9) Active confirmed Problem 68796755 Hyperlipidemia, unspecified hyperlipidemia type (E78.5) Active confirmed Problem 900482068 Type 2 diabetes mellitus without complication, without long-term current use of insulin (E11.9) Active confirmed Problem 48528562 Dysphagia, unspecified type (R13.10) Active confirmed Problem 088715823 Depression with anxiety (F41.8) Active confirmed Problem 26167219 Sleep apnea, unspecified type (G47.30) Active confirmed Problem 372192021 History of asthm a (Z87.09) Active confirmed Problem 479066871 Ear itch (L29.9) Active confirmed Problem 589165377 History of sleep apnea (Z86.69) Active confirmed Problem 837420200 Body mass index [BMI] 40.0-44.9, adult (Z68.41) [...] End Date NICOLETTE Lynch [address] [place], [place] [id number] Jocelin Talley Self - patient is the insured DENTAL Medicaid [place] [address] [place] [address] [id number] Jocelin Talley Self - patient is the insured Medical (General) History Surgical History Surgery Date(Month/Year) c section x 3 bilat tubal Hospitalization History Reason Date(Month/Year) see surgical
--- OUTSIDE RECORDS SUMMARY | 2024-10-26 11:50 | XMS_ITS | Encounter Summary ---
Author Organization [employer] Address [address] [facility] 7t [place] [address] Care Team Providers Care Cycle Liaison Name Role Phone Wendy Pang MD Primary Care Pro vider Encounter Details Date Type Department Care Team (Latest Contact Info) Description 10/16/2024 Travel Social History Tobacco Use Types Packs/Day Years [...] with others, in a hotel, in a assisted, living outside on the street, on a [...] Description 11/20/2024 9:30 AM EDT Office Visit [facility] [address] [place] [address] Wendy Pang MD [address] [place] [address] 12/01/2024 11:15 AM EDT Office Visit [facility] [address] [place] [address] Magda Calero, OD [address] [place] [address] documented as of this encounter Visit Diagnoses Not on filedocumented in this encounter Additional Health Concerns Assessment Noted Time PHQ-9 Depression Total Score: 10 024 1:15 PM EDT documented as of this encounter Care Teams Cycle Liaison Relationship Specialty Start Date End Date Wendy Pang MD [address] [place] [phone] PCP - General Internal Medicine 02/23/23 documented as of this encounter
--- OUTSIDE RECORDS SUMMARY | 2024-10-26 11:50 | XMS_ITS ---
Author Organization [facility] enter Address [address] [place] [address] Care Team Providers Care Plant Worker Name Role Phone Michael Muller Primary Care Provider Claudia Stafford [phone] REASON FOR VISIT FMX + Exam Encounters Encounter Location Date Provider Diagnosis [address] [place] [address] 09/10/2023 Claudia Stafford Plan Of Treatment No Information Progress Notes * MALIHA Carmen GALDAMEZ B:1970 (54 yo F)Acc No.[id number]:09/10/2023 Progress Note Patient:?MALIHA WILDERABAJocelin CORNEJO Provider:?Claudia Stafford DMD :1970???Age:53 Y???Sex:Female D ate:09/10/2023 Address:[address] [place] [address], [address] [phone] Pcp:Michael Muller Subjective: * Chief Complaints: * ???1. FMX + Exam. * Medical History:? * Implants:? Objective: * Vitals:? Assessment: Plan: * Treatment: * Images: Billing Information: * Visit Code:? * Procedure Codes:? * Electronic signature of Janet Stafford DMD on 10/26/2024 at 11:50 AM EDT Sign off status: Pending * Provider:Sona Stafford DMD Date:?08/20 Generated for [employer] santana/Fatoddg/eTransmitting on:?10/26/2024 11:50 AM EDT
--- OUTSIDE RECORDS SUMMARY | 2024-10-26 11:50 | XMS_ITS | Encounter Summary ---
Author Organization [employer] Address 75 [facility] 7t [place] [address] Care Team Providers Care Extractor Operator Helper Name Role Phone Wendy Pang MD Primary Care Pro vider Reason for Visit * Reason Onset Date Comments Results 10/14/2024 Encounter Details Date Type Department Care Team ([facility] st Contact Info) Description 10/14/2024 Telephone [facility] MEDICINE [address] [place] [address] Wendy Pang MD 230 [place] [address] Results Social History Tobacco Use Types Packs/Day Years [...] with others, in a hotel, in a custodial, living outside on the street, on a [...] encounter Miscellaneous Notes * Telephone Encounter - Judy Brennan RN - 10/14/2024 2:14 PM EST TC x 1 placed to pt at [phone] via [employer] Physical Laboratory Assistant (Will ID#[id number]) to inform of below providermessage. No answer, unable to leave voicemail as box has not been set up yet. TC x 3 placed to pt at [phone]. The call does not dial. Call transferred to another agent (Emi ID#[id number]). The electronics detail draftsperson ran into the same issue again. Pt to follow up PRN. ----- Message from Carreira Beauty Too sent at 10/14/2024 12:41 PM EST ----- Please reach out to patient with imaging [...] Description 11/20/2024 9:30 AM EDT Office Visit [facility] MEDICINE 230 [place] [address] Wendy Pang MD [address] [place] [address] 12/01/2024 11:15 AM EDT Office Visit [facility] OPTOMETRY [address] [place], [place] [phone] Magda Calero, OD 267 [place] [address] documented as of this encounter Visit Diagnoses Not on filedocumented in this encounter Additional Health Concerns Assessment Noted Time PHQ-9 Depression Total Score: 10 024 1:15 PM EDT documented as of this encounter Care Teams Extractor Operator Helper Relationship Specialty Start Date End Date Wendy Pang MD 230 [place] [address] PCP - General Internal Medicine 02/23/23 documented as of this encounter
--- OUTSIDE RECORDS SUMMARY | 2024-10-26 11:51 | XMS_ITS | Encounter Summary ---
Author Organization [employer] Address 75 [facility] 7t [place] [address] Care Team Providers Care Manager Infusion Name Role Phone Wendy Pang MD Primary Care Pro vider Reason for Visit * Reason Onset Date Comments Med Refill 07/13/2024 Encounter Details Date Type Department Care Team ([facility] st Contact Info) Description 07/13/2024 Telephone [facility] MEDICINE 230 [place] [address] Wendy Pang MD [address] [place] [address] Med Refill Social History Tobacco Use Types [...] 11:39 AM EST Medication was sent to [facility] on 06/16/24 0.25 mg dose and 0.5 mg. * Telephone Encounter - Chad Kim - 07/13/2024 11:18 AM EST TC from pt requesting medication refill. Medications needing refill: Semaglutide-Weight Management (Wegovy) 0.25 MG/0.5ML solution auto-injector To be sent to: [facility] - [place], [place] - [address] [place] [address] documented in this encounter Plan of Treatment Upcoming Encounters Date Type Department Care Team (Late st Contact Info) Description 11/20/2024 9:30 AM EDT Office Visit [facility] MEDICINE [address] [place] [address] Wendy Pang MD 230 [place] [address] 12/01/2024 11:15 AM EDT Office Visit [facility] OPTOMETRY [address] [place] [address] Magda Calero, OD [address] [place] [address] documented as of this encounter Visit Diagnoses Not on filedocumented in this encounter Additional Health Concerns Assessment Noted Time PHQ-9 Depression Total Score: 10 024 1:15 PM EDT documented as of this encounter Care Teams Manager Infusion Relationship Specialty Start Date End Date Wendy Pang MD [address] [place] [address] PCP - General Internal Medicine 02/23/23 documented as of this encounter
--- OUTSIDE RECORDS SUMMARY | 2024-10-26 11:51 | XMS_ITS | Encounter Summary ---
Author Organization [employer] Address 75 [facility] 7t [place] [address] Care Team Providers Care Slitter Service And Setter Name Role Phone Wendy Pang MD Primary Care Pro vider Encounter Details Date Type Department Care Team (Late st Contact Info) Description 09/29/2024 Orders Only [facility] MEDICINE 230 [place], [place] [phone] Provider, MD Mychal Social History Tobacco Use [...] Description 11/20/2024 9:30 AM EDT Office Visit [facility] MEDICINE 230 [place] [address] Wendy Pang MD 230 [place] [address] 12/01/2024 11:15 AM EDT Office Visit [facility] OPTOMETRY [address] [place] [address] Magda Calero, OD [address] [place] [address] documented as of this encounter Procedures Procedure [...] documented as of this encounter Care Teams Slitter Service And Setter Relationship Specialty Start Date End Date Wendy Pang MD [address] [place] [address] PCP - General Internal Medicine 02/23/23 documented as of this encounter
--- OUTSIDE RECORDS SUMMARY | 2024-10-26 11:51 | XMS_ITS | Encounter Summary ---
Author Organization [employer] Address 75 [facility] 7t [place] [address] Care Team Providers Care Commander Internal Affairs Name Role Phone Wendy Pang MD Primary Care Pro vider Reason for Visit * Reason Onset Date Comments Medical Question 10/15/2024 Encounter Details Date Type Department Care Team ([facility] st Contact Info) Description 10/15/2024 Telephone [facility] MEDICINE 230 [place] [address] Wendy Pang MD 230 [place] [address] Medical Question Social History Tobacco Use Types Packs/Day Years [...] with others, in a hotel, in a halfway, living outside on the street, on a [...] encounter Miscellaneous Notes * Telephone Encounter - Guadalupe Grimes RN - 10/16/2024 1:58 PM EST Pt already booked. Spoke to triage yesterday * Telephone Encounter - Blank Gage CNP - 10/15/2024 2:52 PM EST Pt was seen last by me on 10/07 for chronic pain f/u and for migraines, please see note from this day. 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 Also we agreed we would discontinue her gabapentin and start her on lyrica for pain, a prior auth was initiated 10/07 and is pending. Thank you! * Telephone Encounter - Guadalupe Grimes RN - 10/15/2024 12:59 PM EST Telephone call returned to pt. Advised to contact sleep medicine if CPAP is causing headaches. Pt reports it isn't. She has chronic headaches that are so bad that it is like throbbing pain and it makes it so she is unable to tolerate CPAP. Pt also wanted to report that she has had vaginal bleeding and lower midline abdominal pain x2 years and that she was referred to OBGYN and another specialist (she was unsure what kind of specialist) and that they keep sending her in circles and have not helped her. States that she was told she can't have more pain medications until imaging was done and that she did more imaging but medication has not been sent. Informed I will send message. * Telephone Encounter - Arnie Balderasyes - 10/15/2024 12:20 PM EST Tc from pt stating that she gets headaches and she doesn't want to put on the sleeping machine thathelps her sleep due to headache being too unbearable. documented in this encounter Plan of Treatment Upcoming Encounters Date Type Department Care Team (Late st Contact Info) Description 11/20/2024 9:30 AM EDT Office Visit [facility] MEDICINE 230 [place] [address] Wenyd Pang MD [address] [place] [address] 12/01/2024 11:15 AM EDT Office Visit [facility] OPTOMETRY 267 [place] [address] TarkaMagda, OD 267 [place] [address] documented as of this encounter Visit Diagnoses Not on filedocumented in this encounter Additional Health Concerns Assessment Noted Time PHQ-9 Depression Total Score: 10 024 1:15 PM EDT documented as of this encounter Care Teams Commander Internal Affairs Relationship Specialty Start Date End Date Wendy Pang MD [address] [place] [address] PCP - General Internal Medicine 02/23/23 documented as of this encounter
--- OUTSIDE RECORDS SUMMARY | 2024-10-26 11:51 | XMS_ITS ---
Author Organization [facility] Address [address] [place] [address] Care Team Providers Care Operations Inspector Name Role Phone Michael Muller Primary Care Provider REASON FOR VISIT 2 Month F/u IP [...] Location Date Provider Diagnosis 401-Internal Medicine [address] [place] [address] 10/08/2023 Michael Muller Sleep apnea, unspeci fied [...] * Carmen MACKEY B:1970 (54 yo F)Acc No.[id number]:10/08/2023 Progress Note Patient:?MALIHA GALDAMEZ Jocelin Provider:?Michael Muller MD :1970???Age:53 Y???Sex:Female D ate:10/08/2023 Address:[address] [place] [address] Subjective: * Chief Complaints: * ???1. 2 [...] Electronic signature of Cristina Muller MD on 10/26/2024 at 11:50 AM EDT Sign off status: Pending * Provider:?Michael Muller MD Date:? 024 Generated for Benitez santana/Parminder/Agustinasmitting on:?10/26/2024 11:50 AM EDT
--- OUTSIDE RECORDS SUMMARY | 2024-10-26 11:51 | XMS_ITS | Encounter Summary ---
Author Organization [employer] Address 75 [facility] 7t [place] [address] Care Team Providers Care Animal Anatomy Teacher Name Role Phone Wendy Pang MD Primary Care Pro vider Encounter Details Date Type Department Care Team (Late st Contact Info) Description 08/13/2024 Telephone [facility] MEDICINE 230 [place], [place] [phone] Wendy Pang MD 230 [place] [address] Social History Tobacco Use Types Packs/Day Years [...] with others, in a hotel, in a detention, living outside on the street, on a [...] [facility] MEDICINE [address] [place] [address] Wendy Pang MD [address] [place] [address] 12/01/2024 11:15 AM EDT Office Visit [facility] OPTOMETRY [address] [place] [address] Magda Calero, OD 267 [place] [address] documented as of this encounter Visit Diagnoses Not on filedocumented in this encounter Additional Health Concerns Assessment Noted Time PHQ-9 Depression Total Score: 10 024 1:15 PM EDT documented as of this encounter Care Teams Animal Anatomy Teacher Relationship Specialty Start Date End Date Wendy Pang MD [address] [place] [address] PCP - General Internal Medicine 02/23/23 documented as of this encounter
--- OUTSIDE RECORDS SUMMARY | 2024-10-26 11:51 | XMS_ITS | Encounter Summary ---
Author Organization [employer] Address 75 [facility] 7t [place] [address] Care Team Providers Care Certified Respiratory Therapist Name Role Phone Wendy Pang MD Primary Care Pro vider Reason for Visit * Reason Onset Date Comments PT-1 08/04/2024 Encounter Details Date Type Department Care Team ([facility] st Contact Info) Description 08/04/2024 Telephone [facility] MEDICINE 230 [place] [address] Wendy Pang MD 230 [place] [address] PT-1 Social History Tobacco Use Types Packs/Day [...] Description 11/20/2024 9:30 AM EDT Office Visit [facility] MEDICINE [address] [place] [address] Wendy Pang MD 230 [place] [address] 12/01/2024 11:15 AM EDT Office Visit [facility] OPTOMETRY 267 [place] [address] Magda Calero, OD [address] [place] [address] documented as of this encounter Visit Diagnoses Not on filedocumented in this encounter Additional Health Concerns Assessment Noted Time PHQ-9 Depression Total Score: 10 024 1:15 PM EDT documented as of this encounter Care Teams Certified Respiratory Therapist Relationship Specialty Start Date End Date Wendy Pang MD [address] [place] [address] PCP - General Internal Medicine 02/23/23 documented as of this encounter
--- OUTSIDE RECORDS SUMMARY | 2024-10-26 11:51 | XMS_ITS | Encounter Summary ---
Author Organization [employer] Address [address] [facility] 7t [place] [address] Care Team Providers Care Group Insurance Specialist Name Role Phone Wendy Pang MD Primary Care Pro vider Reason for Visit * Reason Onset Date Comments Chart Prep 09/29/2024 Encounter Details Date Type Department Care Team ([facility] st Contact Info) Description 09/29/2024 Telephone [facility] 230 [place] [address] Wendy Pang MD 230 [place] [address] Chart Prep Social History Tobacco Use Types [...] Miscellaneous Notes * Telephone Encounter - Juan Cedeno [place] - 09/29/2024 10:12 AM EST Chart [...] Description 11/20/2024 9:30 AM EDT Office Visit [facility] MEDICINE 230 [place] [address] Wendy Pang MD [address] [place] [address] 12/01/2024 11:15 AM EDT Office Visit [facility] OPTOMETRY [address] [place] [address] Magda Calero, OD 267 [place] [address] documented as of this encounter Visit Diagnoses Not on filedocumented in this encounter Additional Health Concerns Assessment Noted Time PHQ-9 Depression Total Score: 10 024 1:15 PM EDT documented as of this encounter Care Teams Group Insurance Specialist Relationship Specialty Start Date End Date Wendy Pang MD [address] [place] [address] PCP - General Internal Medicine 02/23/23 documented as of this encounter
--- OUTSIDE RECORDS SUMMARY | 2024-10-26 11:51 | XMS_ITS | Encounter Summary ---
Author Organization [employer] Address 75 [facility] 7t [place] [address] Care Team Providers Care Certified Adapted Physical Educator Name Role Phone Wendy Pang MD Primary Care Pro vider Reason for Visit * Reason Onset Date Comments Prior Authorization 09/29/2024 [employer] Encounter Details Date Type Department Care Team ([facility] st Contact Info) Description 09/29/2024 Telephone [facility] MEDICINE 230 [place] [address] Wendy Pang MD [address] [place] [address] Prior Authorization ([employer]) Social History Tobacco Use [...] PA approval received for [employer]. Scanned into [employer]. * Telephone Encounter - Natacha Medrano - 09/30/2024 4:03 PM EST PA for [employer] signed and faxed to [employer]. Confirmation received and sent to scan. If patient calls to check status on above, please advise them to contact Pharmacy . * Telephone Encounter - Natacha Medrano - 09/29/2024 10:30 AM EST PA for [employer] from [employer] placed on prescriber desk for signature. * [...] Description 11/20/2024 9:30 AM EDT Office Visit [facility] MEDICINE [address] [place] [address] Wendy Pang MD [address] [place] [address] 12/01/2024 11:15 AM EDT Office Visit [facility] OPTOMETRY 267 [place] [address] Magda Calero, OD 267 [place] [address] documented as of this encounter Visit Diagnoses Not on filedocumented in this encounter Additional Health Concerns Assessment Noted Time PHQ-9 Depression Total Score: 10 024 1:15 PM EDT documented as of this encounter Care Teams Certified Adapted Physical Educator Relationship Specialty Start Date End Date Wendy Pang MD [address] [place] [address] PCP - General Internal Medicine 02/23/23 documented as of this encounter
--- OUTSIDE RECORDS SUMMARY | 2024-10-26 11:51 | XMS_ITS | Encounter Summary ---
Author Organization [employer] Address 75 [facility] 7t [place] [address] Care Team Providers Care Information Systems Director Name Role Phone Wendy Pang MD Primary Care Pro vider Reason for Visit * Reason Onset Date Comments Nurse Triage 03/11/2023 Encounter Details Date Type Department Care Team ([facility] st Contact Info) Description 03/11/2023 Telephone [facility] MEDICINE 230 [place] [address] Wendy Pang MD [address] [place] [address] Nurse Triage Social History Tobacco Use Types [...] 03/14/2023 11:06 AM EDT Triage call with [employer] [facility] [id number]. Pt was triaged 03/11/23 and advised to come to [facility] to be seen but, didn't go. Pt reports doesn't want to go to [facility] because, I have too many issues Carol only want my doctor . Pt is offered 300pm apt with Dr. Villegas today but, reports no transportation. Advised Pt has 04/18/[address] apt for transfer to Dr. Jama Vance and Pt reports my friend said thereare many apts open with Dr. Yun earlier than that and I want to go 03/25. . Label Remover looked at schedule for that day and no available apts for transfer Pt seen. Phone connection very poor. Call was dropped 3 times during this conversation. Advised Pt to come to [facility] today or tomorrow. Hours given opentill 4pm [...] still has severe pain. Please contact at [phone] * Telephone Encounter - Beryl Schuster RN - 03/11/2023 1:25 PM EDT Triage call with [employer] [facility] [place] [id number] Pt reports shoulder, neck, middle to low back pain. Pt reports left foot almost gave out and Pt almost fell so Pt has someone walk with her all the time. Pt has suffered loss of mother and other family problems causing the increase of the pain. Pt is not finding effective pain relief and wants to see provider. Advised to come to [facility] today to be seen and Pt agreed. [...] accepted this outcome Please contact pt at [phone] Slovak Speaker documented in this encounter Plan of Treatment Upcoming Encounters Date Type Department Care Team (Late st Contact Info) Description 11/20/2024 9:30 AM EDT Office Visit [facility] MEDICINE 230 [place] [address] Wendy Pang MD [address] [place] [address] 12/01/2024 11:15 AM EDT Office Visit [facility] OPTOMETRY [address] [place] [address] Magda Calero, OD [address] [place] [address] documented as of this encounter Visit Diagnoses Not on filedocumented in this encounter Care Teams Information Systems Director Relationship Specialty Start Date End Date Wendy Pang MD 230 [place] [address] PCP - General Internal Medicine 02/23/23 documented as of this encounter
--- OUTSIDE RECORDS SUMMARY | 2024-10-26 11:51 | XMS_ITS | Encounter Summary ---
Author Organization [employer] Address 75 [facility] 7t [place] [address] Care Team Providers Care Piano Accompanist Name Role Phone Wendy Martell MD Primary Care Provide r Wendy Pang MD Primary Care Pro vider Encounter Details Date Type Department Care Team (Late st Contact Info) Description 02/18/2023 Orders Only [facility] MEDICINE [address] [place] [address] Jordana Jose CNM 230 [place] [address] Social History Tobacco Use Types Packs/Day Years [...] Description 11/20/2024 9:30 AM EDT Office Visit [facility] MEDICINE 230 [place] [address] Wendy Pang MD 230 [place] [address] 12/01/2024 11:15 AM EDT Office Visit [facility] OPTOMETRY [address] [place] [address] Magda Calero, OD [address] [place] [address] documented as of this encounter Procedures Procedure Name Priority Date/Time Associated Diagnosis Comments COLPOSCOPY Routine 01/31/2023 12:00 AM EDT documented in this encounter Results * Colposcopy (01/31/2023 12:00 AM EDT) us Ronni Bautista MD IN CLINIC/BEDSIDE ORDERABLES Fin al Result [facility] [address] [place] [phone] [phone] documented in this encounter Visit Diagnoses Not on filedocumented in this encounter Care Teams Piano Accompanist Relationship Specialty Start Date End Date Wendy Martell MD 230 [place] [address] PCP - General Internal Medicine 11/22/22 02/22/23 Wendy Pang MD 230 [place] [address] PCP - General Internal Medicine 02/23/23 documented as of this encounter
--- OUTSIDE RECORDS SUMMARY | 2024-10-26 11:51 | XMS_ITS | Encounter Summary ---
Author Organization [employer] Address 75 [facility] 7t [place] [address] Care Team Providers Care Representative Government Relations Name Role Phone Wendy Pang MD Primary Care Pro vider Reason for Visit * Reason Onset Date Comments Chart prep 10/15/2024 Encounter Details Date Type Department Care Team ([facility] st Contact Info) Description 10/15/2024 Telephone [facility] MEDICINE 230 [place] [address] Wendy Pang MD 230 [place] [address] Chart prep Social History Tobacco Use Types Packs/Day Years [...] encounter Miscellaneous Notes * Telephone Encounter - Elyssa Whitfield MA - 10/15/2024 2:29 PM EST Chart Prep Labs: not done Images: done Vaccines due: yes Referrals: pending appt Screenings: eye exam , Foot Exam Overdue care gaps: Glucose documented in this encounter Plan of Treatment Upcoming Encounters Date Type Department Care Team (Late st Contact Info) Description 11/20/2024 9:30 AM EDT Office Visit [facility] MEDICINE 230 [place] [address] Wendy Pang MD 230 [place] [address] 12/01/2024 11:15 AM EDT Office Visit [facility] OPTOMETRY [address] [place], [place] [phone] Magda Calero OD 267 [place] [address] documented as of this encounter Visit Diagnoses Not on filedocumented in this encounter Additional Health Concerns Assessment Noted Time PHQ-9 Depression Total Score: 10 024 1:15 PM EDT documented as of this encounter Care Teams Representative Government Relations Relationship Specialty Start Date End Date Wendy Pang MD [address] [place] [address] PCP - General Internal Medicine 02/23/23 documented as of this encounter
== END 2024-10-26 11:16 | disposition home or self-care (01) ==
PROVIDERS: Visit Provider Anesthesiology
DX: M79.7 Fibromyalgia (principal); M15.0 Primary generalized (osteo)arthritis; G89.4 Chronic pain syndrome
CPT/HCPCS: 99203

== ENCOUNTER 2024-11-16 13:25 | Outpatient (RCR) | payer MEDICAID, SELFPAY | END 2024-12-04 11:03 | disposition home or self-care (01) | LOC: HO.PT 13:25 | PROVIDERS: PCP Student in an Organized Health Care Education/Training Program | DX: M54.50 Low back pain, unspecified (principal); G89.29 Other chronic pain | CPT/HCPCS: 97110; 97162; 97535 ==

== ENCOUNTER 2024-11-23 08:22 | Emergency (ER) | payer MEDICAID, SELFPAY ==
[2024-11-23] VITALS (7 sets, daily range): BP systolic 146–171; BP diastolic 78–100; PULSE 82–90; RESP 18; TEMP 36.4–36.5; O2SAT 97; BMI 42.8
--- NOTE | ~2024-11-23 | CT_ITS ---
EXAMINATION: CT ANGIOGRAM HEAD AND NECK CLINICAL INFORMATION: Headache, neck pain, hypertension. COMPARISON: None available. TECHNIQUE: Noncontrast axial imaging of the head was performed. This was followed by test bolus sequences and head and neck intravenous bolus administration 70 mL of Omnipaque 350. Helical imaging was performed in the axial plane from the aortic arch to the skull vertex. The data was processed at the generation engineering technologist's workstation for generation of MIP sequences. Angled MIPs and volume rendered reformatted images were also generated at an offline 3D workstation. Stenoses are assessed in accordance with NASCET criteria unless otherwise indicated. This CT examination was performed using dose optimization techniques as appropriate, variously including the following: *Automated exposure control *Adjustment of mA and/or kV according to patient size (this includes techniques or standardized protocols for targeted exams where dose is matched to indication/reason for exam; i.e. extremities or head) *Use of iterative reconstruction technique FINDINGS: NONCONTRAST HEAD CT: There is no evidence of intracranial hemorrhage or extra-axial fluid collection. There is no mass effect, or edema. No CT evidence of acute territorial infarct. Ventricles, sulci, and cisterns are normal in size and configuration for patient age. No hydrocephalus. No midline shift. Negative hyperdense MCA sign. Negative insular ribbon sign. No significant white matter abnormalities. Globes and orbital contents image normally. No extracranial soft tissue abnormalities. The paranasal sinuses, mastoid air cells, and tympanic cavities are normally aerated. No suspicious bony abnormalities. NECK CTA: -AORTIC ARCH: Normal in caliber. Mild atheromatous calcification. 2-vessel branching pattern. -GREAT VESSEL ORIGINS: Widely patent. No stenosis. -RIGHT COMMON CAROTID ARTERY: Normal in course and caliber to the level of the bifurcation. -CERVICAL RIGHT INTERNAL CAROTID ARTERY: Normal opacification without focal stenosis or occlusion. -LEFT COMMON CAROTID ARTERY: Normal in course and caliber to the level of the bifurcation. -CERVICAL LEFT INTERNAL CAROTID ARTERY: Normal opacification without focal stenosis or occlusion. -CERVICAL RIGHT VERTEBRAL ARTERY: Normal in course and caliber into the skull base. -CERVICAL LEFT VERTEBRAL ARTERY: Mildly dominant. Normal in course and caliber into the skull base. OTHER, SOFT TISSUES: -No lymphadenopathy or mass. No abnormal fluid collection or soft tissue swelling. -Normal thyroid. -Imaged superior mediastinal structures normal. -Imaged lung apices clear. -Mild degenerative changes of the cervical spine. CTA OF THE BRAIN: -INTRACRANIAL INTERNAL CAROTID ARTERIES: No focal stenosis or occlusion. No aneurysm. -RIGHT ANTERIOR CEREBRAL ARTERY: The A1 segment is diminutive. Normal arborization of the distal segments. -LEFT ANTERIOR CEREBRAL ARTERY: Normal A1 segment.. Normal arborization of the distal segments. -ANTERIOR COMMUNICATING ARTERY: Normal. -RIGHT MIDDLE CEREBRAL ARTERY: Normal M1 segment of the MCA without focal stenosis or occlusion. Normal arborization of the distal segments. -LEFT MIDDLE CEREBRAL ARTERY: Normal M1 segment of the MCA without focal stenosis or occlusion. Normal arborization of the distal segments. -RIGHT VERTEBRAL ARTERY V4: Normal in course and caliber. Normal PICA branch. -LEFT VERTEBRAL ARTERY V4: Normal in course and caliber. There is a AICA/PICA. -BASILAR ARTERY: Normal without focal stenosis or occlusion. Normal appearance of the proximal superior cerebellar arteries. Normal basilar tip. -RIGHT POSTERIOR CEREBRAL ARTERY: The P1 segment is diminutive. Partial origin of the INSIDE SALES ADVISOR with robust opacification of the posterior communicating artery. Normal opacification of the distal INSIDE SALES ADVISOR segments. -LEFT POSTERIOR CEREBRAL ARTERY: Normal P1 segment. Normal opacification of the distal INSIDE SALES ADVISOR segments. -POSTERIOR COMMUNICATING ARTERIES: The left is dominant. The right is diminutive. Normal opacification of the superior sagittal, straight, transverse, and sigmoid sinuses. No venous thrombosis. No space-occupying hemorrhage or definite evolving infarct. CT/CT angio head neck IMPRESSION: NONCONTRAST HEAD CT: 1. No acute intracranial abnormality. CTA NECK: 1. No evidence of major arterial vascular stenosis, occlusion, or dissection. CTA HEAD: 1. No evidence of major arterial vascular occlusion, stenosis, dissection, or aneurysm. 2. Patent major cortical and dural venous sinuses. Electronically signed by: Jose Palacios MD 11/23/2024 12:14 PM EDT
--- NOTE | 2024-11-23 08:43 | ED_ITS ---
HPI - General Adult General Chief complaint: Neck Pain/Injury Stated complaint: neck pain Time Seen by Provider: 11/23/24 08:43 Source: patient, RN notes reviewed, old records reviewed and spanish interpreter/translator Mode of arrival: ambulatory Limitations: language barrier History of Present Illness ED Provider: Noe HPI narrative: Patient is a 54-year-old Liberian speaking female with history of fibromyalgia, osteoarthritis, PTSD, anxiety, HLD, T2 DM, HTN, sleep apnea presenting to the emergency department with complaint of left sided head and neck pain since Saturday. Denies fall or other trauma. States pain began at the base of her skull, his since began to radiate to left lateral neck. She denies any weakness, numbness, tingling to upper extremities. Denies any blurred or double vision. States the pain is interfering with her sleep. Reports neck is tender to palpation. States she does get headaches but this feels different. Did not take her blood pressure medications this morning. Denies chest pain, palpitations, shortness of breath. Not anticoagulated. MD complaint: neck pain, headache Onset (ago): day(s) Related Data Home Medications ?Medication ?Instructions ?Recorded ?Confirmed losartan 100 mg tablet 100 mg PO DAILY 01/20/24 06/19/24 levothyroxine 88 mcg capsule 88 mcg PO QAM 01/24/24 06/19/24 (Tirosint) metformin 500 mg tablet 500 mg PO DAILY 01/24/24 06/19/24 sertraline 25 mg tablet 25 mg PO DAILY 01/24/24 06/19/24 duloxetine 30 mg capsule,delayed 30 mg PO DAILY 06/19/24 06/19/24 release (Cymbalta) atorvastatin 20 mg tablet 20 mg PO DAILY 10/26/24 Previous Rx's ?Medication ?Instructions ?Recorded cyclobenzaprine 10 mg tablet 10 mg PO BEDTIME PRN muscle spasm 11/04/23 #7 tabs cyclobenzaprine 10 mg tablet 10 mg PO TID PRN muscle spasm #10 11/23/24 tabs lidocaine 5 % topical patch 1 patch topical DAILY #15 ea 11/23/24 Allergies Allergy/AdvReac Type Severity Reaction Status Date / Time No Known Allergies Allergy Verified 11/23/24 08:37 Review of Systems 2 Review of Systems: As per HPI Yes all other systems are reviewed and are negative Constitutional: Constitutional: Reports as per HPI PMFSH Past Medical History Medical History (Updated 11/23/24 @ 13:36 by Amaya Liu NP) Fibromyalgia Osteoarthritis Polyarthralgia Post traumatic stress disorder Constipation Cervical disc disease Generalized anxiety disorder Mixed hyperlipidemia Type 2 diabetes mellitus HTN (hypertension) Tachycardia Sleep apnea LGSIL on Pap smear of cervix Surgical History Hx of tubal ligation Hx of section Social History Social History (Updated 06/19/24 @ 09:47 by MI Jacobson) Alcohol intake: never Patient Tobacco Use Status: Never used Tobacco Smoked in Last 30 Days: No Use of substances other than those prescribed or required for medical reasons: No Advance Directives: No Advance Directives Information Provided: No Do you have a plan to hurt others: No Plan Patient : No Physical Exam ED Vital Signs: Vital Signs - 24 hr 11/23/24 08:31 11/23/24 09:11 11/23/24 09:12 Temperature 97.5 F Pulse Rate 90 Respiratory Rate 18 Blood Pressure 171/100 H 171/100 H 171/100 H Pulse Oximetry 97 Oxygen Delivery Method Room Air 11/23/24 11:17 11/23/24 12:36 Temperature 97.7 F Pulse Rate 88 88 Respiratory Rate 18 18 Blood Pressure 152/84 H 152/84 H Pulse Oximetry 97 97 Oxygen Delivery Method Room Air Room Air BMI result Body Mass Index 42.8 Vital signs have been reviewed and appear to be correct. Blood pressure elevated. Heart rate normal. Respiratory rate normal. Temperature normal. Oxygen saturation normal. Const General: cooperative, healthy appearing and no acute distress Orientation/consciousness: oriented to person, oriented to place, oriented to time and patient oriented x3 Limitations: no limitations HENMT Head: Yes normocephalic and Yes atraumatic Ears: external ears normal General nose exam: Normal external nose present Face and sinus: Yes face symmetric Mouth: oropharynx normal and moist mucous membranes Throat: Yes uvula midline Eyes Pupils: Equal, round and reactive pupils present Neck Neck: Yes normal visual inspection and Yes supple Resp Effort & Inspection: normal respiratory effort and able to speak in complete sentences Auscultation: clear to auscultation bilaterally Cardio Rate: regular rate Rhythm: regular rhythm Heart sounds: S1 normal heart sound present and S2 normal heart sound present GI Palpation (GI): Soft to palpation and nontender Auscultation: normoactive bowel sounds General: Yes no CVA tenderness Back/Spine/Pelvis Back: no CVA tenderness Cervical Spine: normal cervical lordosis, cervical ROM normal, cervical muscular tenderness (left lateral), No Cervical spine tenderness and No step off deformity Skin General skin exam: elasticity normal and turgor normal Neuro General: oriented to person, oriented to place, oriented to time, patient oriented x3, moves all extremities, no focal motor deficits and CN's II-XI intact bilaterally Cranial nerves: Yes Equal, round and reactive pupils present Cognition (Neuro): normal cognition Extrem General: Yes full ROM, Yes no pedal edema and Yes no calf tenderness Psych Mental Status: mental status grossly normal Affect: normal affect Thought process: Normal thought process present Medications Administered Discontinued Medications Generic Name Dose Route Start Last Admin Trade Name Freq PRN Reason Stop Dose Admin Diazepam 2.5 mg 11/23/24 11:06 11/23/24 11:37 Diazepam 10 Mg/2 Ml Cartridge IVPUSH 11/23/24 11:07 2.5 mg STAT STA Administration Hydrochlorothiazide 12.5 mg 11/23/24 08:44 11/23/24 09:12 Hydrochlorothiazide 12.5 Mg Tablet PO 11/23/24 08:45 12.5 mg ONCE ONE Administration Protocol Iohexol 100 ml 11/23/24 11:33 11/23/24 11:34 Iohexol 350 Mg/Ml 100 Ml Infus..Btl IV 11/23/24 11:34 70 ml ONCE ONE Administration Ketorolac Tromethamine 15 mg 11/23/24 12:29 11/23/24 12:48 Ketorolac Tromethamine 15 Mg/Ml Vial IVPUSH 11/23/24 12:30 15 mg ONCE ONE Administration Losartan Potassium 100 mg 11/23/24 08:44 11/23/24 09:11 Losartan Potassium 50 Mg Tablet PO 11/23/24 08:45 100 mg ONCE ONE Administration Protocol Medical Decision Making Medical Decision Making MDM Narrative: Patient is a 54-year-old Liberian speaking female with history of fibromyalgia, osteoarthritis, PTSD, anxiety, HLD, T2 DM, HTN, sleep apnea presenting to the emergency department with complaint of left sided head and neck pain since Saturday. On exam patient is awake, A+Ox3, hypertensive, VS otherwise WNL, afebrile, normal neurological exam without focal deficits, physical exam findings as above. Given reported symptoms and physical exam findings, initial differential includes but is not limited to ICH, carotid artery dissection, cervical strain, tension headache. Do not suspect acute glaucoma, CO poisoning, encephalitis, meningitis, preeclampsia, pseudotumor, temporal arteritis/giant cell arteritis. Labs notable for no leukocytosis, no anemia, mild transaminitis. CTA head and neck notable for no evidence of ICH, occlusion, dissection, stenosis. My interpretation is in agreement with the radiologist's interpretation. Results discussed with patient and all questions answered. Will discharge home with flexeril and lidocaine patches. Return precautions discussed. Patient verbalized understanding of and agreement with plan. In- person interpreter translator was utilized for all interactions, assessments, and discussions. Differential Diagnosis Differential Diagnoses: The differential diagnosis associated with the presentation includes as per [facility] Admission/Observation Consideration of admission/observation: Escalation of care including admission/observation considered Patient would have been admitted to the hospital had their work up had any findings where hospital admission was appropriate and their clinical presentation warranted hospital admission. Lab Data [facility] Lab Attestation statement: I reviewed the patient's lab results. as per [facility] 11/23/24 09:08 11/23/24 09:08 Labs: Lab Results 11/23/24 Range/Units 09:08 WBC 7.5 (4.8-10.8) X10*3/uL RBC 4.70 (4.20-5.50) X10*6/uL Hgb 14.3 (12.0-16.0) g/dl Hct 44.1 (37.0-47.0) % MCV 93.8 (80.0-98.0) fL MCH 30.4 (27.0-33.0) pg MCHC 32.4 (31.0-35.0) g/dl RDW 13.6 (11.0-16.0) % Plt Count 161 (160-400) X10*3/uL MPV 11.1 (9.4-12.3) fL Immature Gran % (Auto) 0.4 (0.0-0.4) % Neut % (Auto) 72.9 (45-73) % Lymph % (Auto) 20.9 (20-40) % Kern % (Auto) 5.0 (2-11) % Eos % (Auto) 0.5 (0-4) % Baso % (Auto) 0.3 (0-2) % Lymph # (Auto) 1.6 (1.2-4.9) X10*3/uL Kern # (Auto) 0.4 (0.1-1.2) X10*3/uL Eos # (Auto) 0.0 (0.0-0.4) X10*3/uL Baso # (Auto) 0.0 (0.0-0.2) X10*3/uL Abs Immat Gran (auto) 0.03 (0.00-0.03) X10*3/uL Absolute Neuts (auto) 5.4 (2.0-8.3) x10*3/uL Absolute Nucleated RBC 0.000 (0.0-0.012) X10*3/uL Nucleated RBC % (auto) 0.0 (0.0-0.2) /100WBC Sodium 140 (135-145) mmol/L Potassium 3.9 (3.3-5.1) mmol/L Chloride 109 H (96-108) mmol/L Carbon Dioxide 22 (22-29) mmol/L Anion Gap 13 (12-20) BUN 15 (9-16) mg/dL Creatinine 0.73 (0.5-1.4) mg/dL Estim Creat Clear Calc 89.5 Estimated GFR > 60 Random Glucose 89 (60-115) mg/dL Calcium 9.2 (8.4-10.2) mg/dL Total Bilirubin 0.3 (0.0-1.0) mg/dL AST 44 H (5-31) U/L ALT 43 H (0-31) U/L Alkaline Phosphatase 74 (39-117) U/L Troponin I High Sens < 2.7 (<3.5-17.0) ng/L Total Protein 8.1 H (6.5-8.0) g/dL Albumin 4.4 (3.5-5.0) g/dL Independent Interpretation I performed an independent interpretation of an: CT Scan Interpretation: CTA head and neck notable for no evidence of ICH, occlusion, dissection, stenosis. Radiology Impression Discussion of test interpretation with radiology: I have reviewed the radiologist's reading. Radiologist Impression: CT/CT angio head neck IMPRESSION: NONCONTRAST HEAD CT: 1. No acute intracranial abnormality. CTA NECK: 1. No evidence of major arterial vascular stenosis, occlusion, or dissection. CTA HEAD: 1. No evidence of major arterial vascular occlusion, stenosis, dissection, or aneurysm. 2. Patent major cortical and dural venous sinuses. External Record Review External record reviewed: Inpatient record, Office record and Outpatient record Prescription Management I considered prescription management with: Other Discharge Plan Discharge Clinical Impression: Acute tension headache, Cervical strain Patient Disposition: Home, Self-Care Instructions: Cervical Strain (DC), Tension Headache (ED) Additional Instructions: You were evaluated in the emergency department with complaint of neck pain and headache. Your imaging did not show any evidence of bleeding in your brain or other concerning findings. Your pain is likely related to a muscle strain. We recommend taking 600mg ibuprofen or 650mg Tylenol. If necessary, you can alternate these medications every three hours. For example, at noon take Tylenol, then at 3:00 take ibuprofen, then at 6:00 take Tylenol, etc. You are also being prescribed a muscle relaxer which you can use up to every 8 hours as needed. You are also being prescribed topical lidocaine patches which you can wear for up to 12 hours in a 24 hour period. Do not apply heat directly over the patches. You should follow up with your primary care provider as you may require physical therapy to improve your symptoms. Return to the emergency department if you develop worsening neck pain or stiffness, new weakness, numbness, or tingling to your arm, severe headaches, or any other concerning symptoms. Prescriptions: New lidocaine 5 % adhesive patch,medicated 1 patch topical DAILY Qty: 15 0RF Rx Instructions: leave on most painful area for up to 12 hrs cyclobenzaprine 10 mg tablet 10 mg PO TID PRN (Reason: muscle spasm) Qty: 10 0RF No Action cyclobenzaprine 10 mg tablet 10 mg PO BEDTIME PRN (Reason: muscle spasm) Qty: 7 0RF metformin 500 mg tablet 500 mg PO DAILY sertraline 25 mg tablet 25 mg PO DAILY levothyroxine [Tirosint] 88 mcg capsule 88 mcg PO QAM duloxetine [Cymbalta] 30 mg capsule,delayed release(DR/EC) 30 mg PO DAILY atorvastatin 20 mg tablet 20 mg PO DAILY losartan 100 mg tablet 100 mg PO DAILY Print Language: Liberian
--- NOTE | 2024-11-23 08:45 | ECG_ITS ---
Test Reason : neck pain Blood Pressure : */* mmHG Vent. Rate : 79 BPM Atrial Rate : 79 BPM P-R Int : 176 ms QRS Dur : 82 ms QT Int : 392 ms P-R-T Axes : 45 -1 21 degrees QTcB Int : 449 ms Normal sinus rhythm Normal ECG No previous ECGs available Referred By: Amaya Liu Electronically Signed By: Celestino Godwin
[2024-11-23 09:11] LABS: MANUAL DIFF FLAG NO
[2024-11-23] MEDS: Losartan Potassium 50 MG TABLET 100 MG PO (09:11)
[2024-11-23] MEDS: hydroCHLOROthiazide 12.5 MG TABLET PO (09:12)
[2024-11-23 09:14] LABS: Basophils Percent Auto 0.3 % (0-2); Eosinophils Percent Auto 0.5 % (0-4); Hematocrit 44.1 % (37.0-47.0); Hemoglobin 14.3 g/dl (12.0-16.0); Imm Gran Abs Auto 0.03 X10*3/uL (0.00-0.03); Imm Gran Pct Auto 0.4 % (0.0-0.4); Lymphocytes Absolute Auto 1.6 X10*3/uL (1.2-4.9); Lymphocytes Percent Auto 20.9 % (20-40); Mean Corpuscular HGB Conc 32.4 g/dl (31.0-35.0); Mean Corpuscular Hemoglobin 30.4 pg (27.0-33.0); Mean Corpuscular Volume 93.8 fL (80.0-98.0); Mean Platelet Volume 11.1 fL (9.4-12.3); Monocytes Absolute Auto 0.4 X10*3/uL (0.1-1.2); Neutrophils Absolute Auto 5.4 x10*3/uL (2.0-8.3); Neutrophils Percent Auto 72.9 % (45-73); Platelet Count 161 X10*3/uL (160-400); Red Cell Distribution Width 13.6 % (11.0-16.0); White Blood Count 7.5 X10*3/uL (4.8-10.8)
--- OUTSIDE RECORDS SUMMARY | 2024-11-23 09:34 | XMS_ITS | Encounter Summary ---
Author Organization [employer] Address [address] [facility] 7t [place] [address] Care Team Providers Care Circular Distributor Name Role Phone Wendy Pang MD Primary Care Pro vider Encounter Details Date Type Department Care Team (Late st Contact Info) Description 09/29/[address] [facility] [address] [place], [place] [phone] Provider, MD Mychal Social History Tobacco Use [...] Care Team (Late st Contact Info) Description 12/01/2024 11:15 AM EDT Office Visit [facility] [address] [place] [phone] Magda Calero, OD [address] [place] [address] 12/17/2024 10:00 AM EDT Medication Management [facility] [address] [place] [phone] 01/13/2025 11:30 AM EDT Office Visit [facility] [address] [place] [phone] Wendy Pang MD [address] [place], [place] [phone] documented as of this encounter Procedures Procedure Name Priority Date/Time Associated Diagnosis Comments COLPOSCOPY Routine 02/11/2024 9:20 AM EDT PAP/HPV Routine 01/09/2024 9:20 AM EDT documented in this encounter Results * Colposcopy (02/11/2024 9:20 AM EDT) us Historical Provider IN CLINIC/BEDSIDE ORDERAB LES Edited [...] documented as of this encounter Care Teams Circular Distributor Relationship Specialty Start Date End Date Wendy Pang MD [address] [place] [address] PCP - General Internal Medicine 02/23/23 documented as of this encounter
--- OUTSIDE RECORDS SUMMARY | 2024-11-23 09:34 | XMS_ITS | Encounter Summary ---
Author Organization [employer] Address [address] [facility] [address] [place] [address] Care Team Providers Care Gold Prospector Name Role Phone Wendy Pang MD Primary Care Pro vider Reason for Visit * Reason Onset Date Comments Nurse Triage 03/11/2023 Encounter Details Date Type Department Care Team ([facility] st Contact Info) Description 03/11/2023 Telephone [facility] [address] [place] [address] Wendy Pang MD [address] [place] [address] Nurse Triage Social History Tobacco Use Types [...] 03/14/2023 11:06 AM EDT Triage call with [employer] ID [id number]. Pt was triaged 03/11/23 and advised to come to [facility] to be seen but, didn't go. Pt reports doesn't want to go to [facility] because, I have too many issues Carol only want my doctor . Pt is offered 300pm apt with Dr. Villegas today but, reports no transportation. Advised Pt has 04/18/23 apt for transfer to Dr. Jama Vance and Pt reports my friend said thereare many apts open with Dr. Yun earlier than that and I want to go 03/25. . Hat Forming Machine Feeder looked at schedule for that day and no available apts for transfer Pt seen. Phone connection very poor. Call was dropped 3 times during this conversation. Advised Pt to come to [facility] today or tomorrow. Hours given opentill 4pm [...] still has severe pain. Please contact at [phone] * Telephone Encounter - Beryl Schuster RN - 03/11/2023 1:25 PM EDT Triage call with [employer] [place] [id number] Pt reports shoulder, neck, middle to low back pain. Pt reports left foot almost gave out and Pt almost fell so Pt has someone walk with her all the time. Pt has suffered loss of mother and other family problems causing the increase of the pain. Pt is not finding effective pain relief and wants to see provider. Advised to come to [facility] today to be seen and Pt agreed. [...] accepted this outcome Please contact pt at [phone] Tongan Speaker documented in this encounter Plan of Treatment Upcoming Encounters Date Type Department Care Team (Late st Contact Info) Description 12/01/2024 11:15 AM EDT Office Visit [facility] [address] [place] [address] Magda Calero, OD [address] [place] [address] 12/17/2024 10:00 AM EDT Medication Management [facility] [address] [place] [phone] 01/13/2025 11:30 AM EDT Office Visit [facility] [address] [place] [address] Wendy Pang MD [address] [place] [phone] documented as of this encounter Visit Diagnoses Not on filedocumented in this encounter Care Teams Gold Prospector Relationship Specialty Start Date End Date Wendy Pang MD [address] [place] [phone] PCP - General Internal Medicine 02/23/23 documented as of this encounter
--- OUTSIDE RECORDS SUMMARY | 2024-11-23 09:34 | XMS_ITS | Encounter Summary ---
Author Organization [employer] Address [address] [facility] 7t [place] [address] Care Team Providers Care Power Crane Operator Name Role Phone Wendy Pang MD Primary Care Pro vider Reason for Visit * Reason Onset Date Comments Durable Medical Equipment 06/23/2024 Prior Authorization 06/23/2024 Encounter Details Date Type Department Care Team ([facility] st Contact Info) Description 06/23/2024 Telephone [facility] [address] [place] [address] Wendy Pang MD [address] [place] [address] Durable Medical Equipment; Prior Authorization Social History [...] 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 Please contract pt at [phone]. (Vincentian Speaker) documented in this encounter Plan of Treatment Upcoming Encounters Date Type Department Care Team (Late st Contact Info) Description 12/01/2024 11:15 AM EDT Office Visit [facility] [address] [place] [address] Magda Calero, OD [address] [place] [address] 12/17/2024 10:00 AM EDT Medication Management [facility] [address] [place] [phone] 01/13/2025 11:30 AM EDT Office Visit [facility] [address] [place] [phone] Wendy Pang MD [address] [place] [address] documented as of this encounter Visit Diagnoses Not on filedocumented in this encounter Additional Health Concerns Assessment Noted Time PHQ-9 Depression Total Score: 10 024 1:15 PM EDT documented as of this encounter Care Teams Power Crane Operator Relationship Specialty Start Date End Date Wendy Pang MD [address] [place] [phone] PCP - General Internal Medicine 02/23/23 documented as of this encounter
--- OUTSIDE RECORDS SUMMARY | 2024-11-23 09:34 | XMS_ITS | Encounter Summary ---
Author Organization [employer] Address [address] [facility] [address]t [place] [address] Care Team Providers Care Schedule Hanger Name Role Phone Wendy Pang MD Primary Care Pro vider Encounter Details Date Type Department Care Team (Late st Contact Info) Description 11/23/2024 Orders Only [facility]TERNAL DATA DEPARTMENT Provider, Generic External Data Social History Tobacco Use Types Packs/Day Years Used Date Smoking Tobacco: Never Smokeless Tobacco: Never Alcohol Use Standard Drinks/Week Comments Never 0 (1 standard drink = 0.6 oz pur e alcohol) Depression Answer Date Recorded Patient Health Questionnaire-9 Score 17 11/20/2024 Patient Health Questionnaire-9 Score 17 11/20/2024 Last PHQ-9: Questionnaire Data Not on file 0 11/20/2024 Housing Stability Answer Date Recorded What is [...] Answer Date Recorded Patient Health Questionnaire-2 Score 6 11/20/2024 Internet Access Answer Date Recorded Internet Access [...] Description 12/01/2024 11:15 AM EDT Office Visit [facility] [address] [place] [address] Magda Calero, OD [address] [place] [address] 12/17/2024 10:00 AM EDT Medication Management [facility] [address] [place] [phone] 01/13/2025 11:30 AM EDT Office Visit [facility] [address] [place] [phone] Wendy Pang MD [address] [place], [place] [phone] documented as of this encounter Procedures Procedure Name Priority Date/Time Associated Diagnosis Comments CBC WITH AUTO DIFFERENTIAL Routine 11/23/2024 9:08 AM EDT documented in this encounter Results * CBC auto differential (11/23/2024 9:08 AM EDT) White Blood Count 7.5 4.8 - 10.8 X10*3/uL [facility] Red Blood Count 4.70 4.20 - 5.50 X10*6/uL [facility] Hemoglobin 14.3 12.0 - 16.0 g/dl [facility] Hematocrit 44.1 37.0 - 47.0 % [facility] Mean Corpuscular Volume 93.8 80.0 - 98.0 fL [facility] Mean Corpuscular Hemoglobin 30.4 27.0 - 33.0 pg [facility] Mean Corpuscular HGB Conc 32.4 31.0 - 35.0 g/dl [facility] Red Cell Distribution Width 13.6 11.0 - 16.0 % [facility] Platelet Count 161 160 - 400 X10*3/uL [facility] Mean Platelet Volume 11.1 9.4 - 12.3 fL [facility] Neutrophils Percent Auto 72.9 45 - 73 % [facility] Imm Gran Pct Auto 0.4 0.0 - 0.4 % [facility] Lymphocytes Percent Auto 20.9 20 - 40 % [facility] Monocytes Percent Auto 5.0 2 - 11 % [facility] Eosinophils Percent Auto 0.5 0 - 4 % [facility] Basophils Percent Auto 0.3 0 - 2 % [facility] NRBC Pct Auto 0.0 0.0 - 0.2 /100WBC [facility] Neutrophils Absolute Auto 5.4 2.0 - 8.3 x10*3/uL [facility] Imm Gran Abs Auto 0.03 0.00 - 0.03 X10*3/uL [facility] Lymphocytes Absolute Auto 1.6 1.2 - 4.9 X10*3/uL [facility] Monocytes Absolute Auto 0.4 0.1 - 1.2 X10*3/uL [facility] Eosinophils Absolute Auto 0.0 0.0 - 0.4 X10*3/uL [facility] Basophils Absolute Auto 0.0 0.0 - 0.2 X10*3/uL [facility] NRBC Abs Auto 0.000 0.0 - 0.012 X10*3/uL [facility] 11/23/2024 9:08 AM EDT 11/23/2024 9:11 AM EDT us Generic External Data Provider LAB BLOOD ORDERAB LES Final Result [facility] [address] [place] [phone] [phone] documented in this encounter Visit Diagnoses Not on filedocumented in this encounter Additional Health Concerns Assessment Noted Time PHQ-9 Depression Total Score: 17 025 9:06 AM EDT documented as of this encounter Care Teams Schedule Hanger Relationship Specialty Start Date End Date Wendy Pang MD [address] [place] [address] PCP - General Internal Medicine 02/23/23 documented as of this encounter
--- OUTSIDE RECORDS SUMMARY | 2024-11-23 09:34 | XMS_ITS | Encounter Summary ---
Author Organization [employer] Address [address] [facility] 7t [place] [address] Care Team Providers Care Programming Manager Name Role Phone Wendy Pang MD Primary Care Pro vider Reason for Visit * Reason Onset Date Comments Med Refill 07/13/2024 Encounter Details Date Type Department Care Team ([facility] st Contact Info) Description 07/13/2024 Telephone [facility] [address] [place] [address] Wendy Pang MD [address] [place] [address] Med Refill Social History Tobacco Use Types [...] 11:39 AM EST Medication was sent to [facility] on 06/16/24 0.25 mg dose and 0.5 mg. * Telephone Encounter - Chad Kim - 07/13/2024 11:18 AM EST TC from pt requesting medication refill. Medications needing refill: Semaglutide-Weight Management (Wegovy) 0.25 MG/0.5ML solution auto-injector To be sent to: [facility] - [place], [place] - [address] [facility] documented in this encounter Plan of Treatment Upcoming Encounters Date Type Department Care Team (Late st Contact Info) Description 12/01/2024 11:15 AM EDT Office Visit [facility] [address] [place] [address] Magda Calero, OD [address] [place] [address] 12/17/2024 10:00 AM EDT Medication Management [facility] [address] [place] [address] 01/13/2025 11:30 AM EDT Office Visit [address] [address] Wendy Pang MD [address] [place] [address] documented as of this encounter Visit Diagnoses Not on filedocumented in this encounter Additional Health Concerns Assessment Noted Time PHQ-9 Depression Total Score: 10 024 1:15 PM EDT documented as of this encounter Care Teams Programming Manager Relationship Specialty Start Date End Date Wendy Pang MD [address] [place] [phone] PCP - General Internal Medicine 02/23/23 documented as of this encounter
--- OUTSIDE RECORDS SUMMARY | 2024-11-23 09:34 | XMS_ITS ---
Author Organization [facility] enter Address [address] [place] [address] Care Team Providers Care Crotch Piece Baster Name Role Phone Michael Muller Primary Care [...] Location Date Provider Diagnosis 401-Internal Medicine [address] [place] [address] 10/08/2023 Michael Muller Sleep apnea, unspeci fied [...] * Carmen MACKEY B:1970 (54 yo F)Acc No.[id number]:10/08/2023 Progress Note Patient:?MALIHA GALDAMEZ Jocelin Provider:?Michael Muller MD :1970???Age:53 Y???Sex:Female D ate:10/08/2023 Address:[address] [place] [address] Subjective: * Chief Complaints: * ???1. 2 [...] Electronic signature of Cristina Muller MD on 11/23/2024 at 09:34 AM EDT Sign off status: Pending * Provider:?Michael Muller MD Date:? 024 Generated for Benitez santana/Parminder/Rodriguezitting on:?11/23/2024 09:34 AM EDT
--- OUTSIDE RECORDS SUMMARY | 2024-11-23 09:34 | XMS_ITS | Encounter Summary ---
Author Organization [employer] Address [address] [facility] 7t [place] [address] Care Team Providers Care Facilities Project Manager Name Role Phone Wendy aPng MD Primary Care Pro vider Reason for Visit * Reason Onset Date Comments PT-1 08/04/2024 Encounter Details Date Type Department Care Team ([facility] st Contact Info) Description 08/04/2024 Telephone [facility] [address] [place] [address] Wendy Pang MD [address] [place] [address] PT-1 Social History Tobacco Use Types Packs/Day [...] Description 12/01/2024 11:15 AM EDT Office Visit [facility] [address] [place] [phone] Magda Calero, OD [address] [place] [address] 12/17/2024 10:00 AM EDT Medication Management [facility] [address] [place] [phone] 01/13/2025 11:30 AM EDT Office Visit [facility] [address] [place] [phone] Wendy Pang MD [address] [place], [place] [phone] documented as of this encounter Visit Diagnoses Not on filedocumented in this encounter Additional Health Concerns Assessment Noted Time PHQ-9 Depression Total Score: 10 024 1:15 PM EDT documented as of this encounter Care Teams Facilities Project Manager Relationship Specialty Start Date End Date Wendy Pang MD [address] [place] [phone] PCP - General Internal Medicine 02/23/23 documented as of this encounter
--- OUTSIDE RECORDS SUMMARY | 2024-11-23 09:34 | XMS_ITS | Encounter Summary ---
Author Organization [employer] Address [address] [facility] 7t [place] [address] Care Team Providers Care Body Presser Name Role Phone Wendy Pang MD Primary Care Pro vider Reason for Referral * Consultation (Routine) - Authorized Specialty Diagnoses / Procedures Referred By Contamina t Referred To Contact Pharmacy Diagnoses Hypothyroidism, unspecified type Wendy Pang MD [address] [place] [address] Phone: tel: fax: Referral ID Status Reason Start Date Expiration Date Visits Requested Visits Authorized [id number] Authorized Continuity of Care 11/20/2024 11/20/2025 6 6 Reason for Visit * Reason Comments Weight Check And BP check Encounter Details Date Type Department Care Team ([facility] st Contact Info) Description 11/20/2024 9:30 AM EDT Office Visit [facility] [address] [place], [place] [phone] Wendy Pang MD [address] [place] [phone] MACARIO (obstructive sleep apnea) (Primary Dx); Polyarthralgia; Hypothyroidism, unspecified type; Dietary counseling; Exercise counseling; Primary hypertension; Class 2 severe obesity due to excess calories with serious comorbidity and body mass index (BMI) of 39.0 to 39.9 in adult ([facility]); Health care maintenance; Fibromyalgia; Pulsatile tinnitus of both ears Social History Tobacco Use Types Packs/Day Years [...] Sign Reading Time Taken Comments Blood Pressure 130/78 11/20/2024 9:33 AM EDT Pulse 85 11/20/2024 9:33 AM EDT Temperature 36.5 ??C (97.7 ??F) 11/20/2024 9:33 AM ED T Respiratory Rate 18 11/20/2024 9:33 AM EDT Oxygen Saturation 96% 11/20/2024 9:33 AM EDT Inhaled Oxygen Concentration - - Weight 96.4 kg (212 lb 9.6 oz) 11/20/2024 9:33 A M EDT Height 157.5 cm (5' 2 ) 11/20/2024 9:33 AM EDT Body Mass Index 38.89 11/20/2024 9:33 AM EDT documented in this encounter Progress Notes * Wendy Vance MD - 11/20/2024 9:30 AM EDT Subjective Patient ID: Jocelin Durán is a 54 y.o. female who presents for f up apt HPI 54 y o F w PMX of Obesity,MACARIO,HTN,PreDM, Hypothyroidism,HLD,PTSD,depression,anxiety.Fibromyalgia Comes for f up apt ------ Assessment and Plan: Health care maintenance -Annual exam done 04/2024 -Menopause : 43 y of age -Pap smear 12/2023 HPV + f w CHEMICAL WEIGHER Dr Bautista 02/2024 s/p colposcopy - negative for dysplasia; no endocervical glandular component Recommended co-testing in 12 months, if cytology and or HPV are abnormal will proceed was colposcopy biopsy and endocervical curettage. --to f up 03/2025 -MM 02/2024 BIRADS 1 -colonoscopy never referred already-- gave today information to pt to call for apt --per pt apt in 12/2024 -vaccines : hep B not immune -refuse vaccine,Tdap today 04/2024 , COVID 19 x3. - advised to get COVIDbooster vaccine --Refuse , Fu vaccine 05/2024 , Shingrix vaccine x2 ----- -referred today for medbox Polyarthralgia-Fibromyalgia polyarthralgias, including pain in her neck, shoulders, left knee (which sometimes swells and she needs crutches), and low back pain No swelling ,no erythema but has burning pain in joints in hands 12/30/2023 ROM neg ,RF neg ,CCP neg ,CRP 1.97 ESR 33 -XR lumbar spine 09/2024:Grade 1 anterolisthesis L5 on S1 measuring approximately 6 mm. This appears based on degenerative facet changes. There are probable full-thickness L5 pars defects. There is a probable right L4 pars defect.Mild to moderate disc degeneration L5-S1. Mild degeneration L4-5. Facet degeneration L4-S1. There are mild degenerative changes in both SI joints. -Saw radio interference expert in 06/2024 Dxed w Fibromyalgia - w elevated inflammatory markers and chronic pain -thought per radio interference expert markers are secondary to obesity -Tried PT in the past but not helped -tylenl prn -resume lyrica 75 mg BID -may help sleeping as well -Seen by PM 10/2023 fibromyalgia and widespread osteoarthritis. Recommended her to start low impact aerobic exercise such as swimming, elliptical machine, or stationary bicycle and PT . Per PM note Her primary care physician is refusing to prescribe her duloxetine. I would like to start her on milnacipran however I need input on her depression and anxiety from psychiatrist before I do that. She was recommended by primary care physician to find psychiatrist for herself. ------Both statements are incorrect . I have been prescribing medication and helped pt getting apt w psychiatrist w assistance. MACARIO -advised to use CPAP consistently PreDM2 -05/2024 Hb1AC 5.7 -repeat Hb1AC HLD -06/12/2025 trig 113, total ch 232, LDL 155 , HDL 55 ASCVS 4.2% -atorvastatin 20 mg daily -repeat chem and fasting lipids Hypothyroidism -06/12/2025 TSH wnl -continue levothyroxine 88 mcg daily -check TFT PTSD,depression,anxiety PHQ9 11<--- 13 , SHYLA 12<--- 6 no SI , no hallucinations no gustavo -apt w 12/14/2024 w Eric Ruff-last seen 10/2024-Advised to Continue Cymbalta 30 mg 1 cap po bidand started on Trazodone 25 mg daily but increased by pt to full tab -50 mg a day -continue cymbalta 30 mg BID -continue acupunture--advised to resume HTN Controlled BP 06/12/2024 microalb neg -EKG for baseline 05/2024 NSR, HR 70, Qtc 451, No ischemic findings only TWI in lead III -apt optometry 12/01/2024 -continue losartan/HDCTZ 100/ 12.5 mg Transaminitis-MENJIVAR -06/12/2024 AST 47, ALT 48 <----AST 52<---39. ALT 42<---43 -Abd US 01/2024 Mildly increased hepatic parenchymal heterogeneity and echogenicity could be associated with hepatocellular disease/hepatic steatosis and substantially limits visualization. Correlation with liver function tests and clinical exam recommended to determine further management. Borderline gallbladder wall thickening of 3 mm. Complex debris is seen in the gallbladder, but is appreciatedonly in the decubitus position. There us 1.5 x 0.9 x 2.1 cm atypical lymph node is present in the superior peripancreatic region. Additional imaging with contrast-enhanced CT scan recommended. -CT abd/pelvis w contrast ordered in 02/11/2024 -not done yet -- gave again information to pt to call for apt --has apt this month per pt -order today Chem, fasting lipids and, TFTto do prior next apt -hopefully w zepbound and weight loss LFTS may have improved GERD Chronic -referred to GI for chronic symptoms--per pt has apt in 12/2024 Obesity BMI 38.8<---40.49 -Advised pt to improve diet and exercise,discussed healthy life style -discussed vice president of finance referral -seen in the past but refused -hold bariatric or now if no improvement to consier -Comes to follow weight ,lost 9 pounds in last 2 mo -already > 4 weeks on 5 mg of zepbound w no SE--increase today zepbound to 7.5 mg weekly Seasonal allergies -Cetirizine 10 mg -Used montelukast before -consider to resume if needed at next apt Chronic neck pain Neck pain for years , no trauma Radiated to head w normal neuro exam Sometimes numbness in early am in hands -XR cervical spine 05/29/2024 Mild to moderate multilevel degenerative disc disease most prominent at C6-C7. -PT referred already --- gave today information to pt to call for apt --pt to call CTS Clinically CTS w Tinel and Phanel test + -requested to RN to help w wrist brace px ---from info by [facility] DELGADO to be deliver to pt on 06/18/2024-per pt told needs to have a measurement-request today staffing operations manager to assist clarifying this Left leg mass sensation -ongoing soft mass sensation for last 1 year causing pain in her lateral astpect of her left ankle aprox 2 cm ? -Left lower ext US soft tisue ordered not done yet---- gave today again information to pt to call for apt Pulsatile sensation of both ears -reports having Pulsatile ears sensation -bl chronically ----given lack of time will need to eval this at at next apt but exam if ears and TMs are normal,ig symptoms are concerning at next visit willneed to obtain image w IAC Review of Systems Constitutional: Negative. HENT: Chronic pulsatile sensation in ears Respiratory: Negative. Cardiovascular: Negative. Objective BP 130/78 (BP Location: Left arm, Patient Position: Sitting, BP Cuff Size: Large adult) Pulse 85 Temp 97.7 ??F (36.5 ??C) (Temporal) Resp 18 Ht 5' 2 (1.575 m) Wt 212 lb 9.6 oz (96.4 kg) SpO2 96% BMI 38.89 kg/m?? Physical Exam Constitutional: General: She is not in acute distress. Appearance: Normal appearance. She is obese. She is not ill-appearing. HENT: Head: Normocephalic. Right Ear: Tympanic membrane normal. Left Ear: Tympanic membrane normal. Neurological: Mental Status: She is alert. Assessment/Plan Problem List Items Addressed This Visit Primary hypertension Hypothyroidism Relevant Medications levothyroxine (Tirosint) 88 MCG capsule Other Relevant Orders Referral to Pharmacy MTM T4, Free TSH Comprehensive Metabolic Panel Lipid Panel, Standard MACARIO (obstructive sleep apnea) - Primary Polyarthralgia Relevant Medications pregabalin (Lyrica) 75 MG capsule Health care maintenance Obesity Fibromyalgia Pulsatile tinnitus of both ears Other Visit Diagnoses Dietary counseling Exercise counseling documented in this encounter Plan of Treatment Upcoming Encounters Date Type Department Care Team (Late st Contact Info) Description 12/01/2024 11:15 AM EDT Office Visit [facility] [address] [place] [address] Magda Calero, SABI [address] [place] [address] 12/17/2024 10:00 AM EDT Medication Management [facility] [address] [place] [address] 01/13/2025 11:30 AM EDT Office Visit [facility] [address] [place] [address] Wendy Pang MD [address] [place] [address] Scheduled Orders Name Type Priority Associated Diagnoses Orde r Schedule T4, Free Lab Routine Hypothyroidism, unspecified type Expected: 11/20/2024 (Approximate), Expires: 11/20/2025 TSH Lab Routine Hypothyroidism, unspecified type Expected: 11/20/2024 (Approximate), Expires: 11/20/2025 Comprehensive Metabolic Panel Lab Routine Hypothyroidism, unspecified type Expected: 11/20/2024 (Approximate), Expires: 11/20/2025 Lipid Panel, Standard Lab Routine Hypothyroidism, unspecified type Expected: 11/20/2024 (Approximate), Expires: 11/20/2025 Scheduled Referrals Name Type Priority Associated Diagnoses Orde r Schedule Referral to Pharmacy [facility] Outpatient Referral Routine Hypothyroidism, unspecified type Ordered: 11/20/2024 documented as of this encounter Visit Diagnoses Diagnosis MACARIO (obstructive sleep apnea)- Primary Obstructive sleep apnea (adult) (pediatric) Polyarthralgia Pain in joint, multiple sites Hypothyroidism, unspecified type Dietary counseling Dietary surveillance and counseling Exercise counseling Primary hypertension Unspecified essential hypertension Class 2 severe obesity due to excess calories with serious comorbidity and body mass index (BMI) of 39.0 to 39.9 in adult ([facility]) Health care maintenance Fibromyalgia Unspecified myalgia and myositis Pulsatile tinnitus of both ears documented in this encounter Additional Health Concerns Assessment Noted Time PHQ-9 Depression Total Score: 17 025 9:06 AM EDT documented as of this encounter Care Teams Body Presser Relationship Specialty Start Date End Date Wendy Pang MD [address] [place] [address] PCP - General Internal Medicine 02/23/23 documented as of this encounter
--- OUTSIDE RECORDS SUMMARY | 2024-11-23 09:34 | XMS_ITS | Encounter Summary ---
Author Organization [employer] Address [address] [facility] 7t [place] [address] Care Team Providers Care Retirement Plan Specialist Name Role Phone Wendy Pang MD Primary Care Pro vider Encounter Details Date Type Department Care Team (Latest Contact Info) Description 11/20/2024 Travel Social History Tobacco Use Types Packs/Day [...] with others, in a hotel, in a long-term, living outside on the street, on a [...] Description 12/01/2024 11:15 AM EDT Office Visit [facility] [address] [place], [place] [phone] Magda Calero, OD [address] [place] [address] 12/17/2024 10:00 AM EDT Medication Management [facility] [address] [place] [phone] 01/13/2025 11:30 AM EDT Office Visit [facility] [address] [place] [phone] Wendy Pang MD [address] [place] [address] documented as of this encounter Visit Diagnoses Not on filedocumented in this encounter Additional Health Concerns Assessment Noted Time PHQ-9 Depression Total Score: 17 025 9:06 AM EDT documented as of this encounter Care Teams Retirement Plan Specialist Relationship Specialty Start Date End Date Wendy Pang MD [address] [place] [address] PCP - General Internal Medicine 02/23/23 documented as of this encounter
--- OUTSIDE RECORDS SUMMARY | 2024-11-23 09:34 | XMS_ITS | Clinical Summary ---
Author Organization [employer] Address [address] [facility] [address] [place] [address] Care Team Providers Care Planishing Hammer Operator Name Role Phone Wendy Pang MD Primary Care Pro vider Allergies No known active allergies Medications * This document contains information received from the source organization and may not represent a complete record from that organization. Blood Pressure kit 1 Device Once per day. 1 kit 024 Active ibuprofen 800 MG tablet 800 mg. Active atorvastatin (Lipitor) 20 MG tabletIndication s:Mixed hyperlipidemia TAKE 1 TABLET BY MOUTH EVERY DAY 90 tablet 3 025 Active losartan-hydroCH LOROthiazide (Hyzaar) 100-12.5 MG tablet TAKE 1 TABLET BY MOUTH EVERY DAY 90 tablet 3 025 Active traZODone (Desyrel) 50 MG tabletIndication s:PTSD (post-traumatic stress disorder) Take 0.5 tablets (25 mg) by mouth at bedtime. May take 1 tablet (50 mg) by mouth at bedtime as needed. 20 tablet 025 2024 Active DULoxetine (Cymbalta) [address] capsuleIndicatio ns:PTSD (post-traumatic stress disorder) Take 1 capsule (30 mg) by mouth 2 times daily. Do not crush or chew. 60 capsule 1 025 2024 Active pregabalin (Lyrica) 75 MG capsuleIndicatio ns:Polyarthralgi a Take 1 capsule (75 mg) by mouth 2 times daily. 60 capsule 1 025 2025 Active levothyroxine (Tirosint) 88 MCG capsuleIndicatio ns:Hypothyroidis m, unspecified type Take 1 capsule (88 mcg) by mouth before breakfast. 30 capsule 2 Active Tirzepatide-Weig ht Management (Zepbound) 7.5 MG/0.5ML solution auto-injector Inject 0.5 mL (7.5 mg) under the skin 1 (one) time per week. 2 mL Active cetirizine (ZyrTEC) 10 MG tablet Take 1 tablet (10 mg) by mouth Once per day. 30 tablet 1 025 2025 Active cetirizine (ZyrTEC) 10 MG tablet Take 1 tablet (10 mg) by mouth Once per day. 90 tablet 024 2024 Discontinued(R eorder (will not trigger notification to Pharmacy)) levothyroxine (Tirosint) 88 MCG capsuleIndicatio ns:Hypothyroidis m, unspecified type Take 1 capsule (88 mcg) by mouth before breakfast. 30 capsule 2 024 2024 Discontinued(R eorder (will not trigger notification to Pharmacy)) metFORMIN (Glucophage) 500 MG tabletIndication s:Type 2 diabetes mellitus without complication, without long-term current use of insulin ([facility]) TAKE 1 TABLET BY MOUTH EVERY DAY WITH FOOD 90 tablet 1 024 2024 Discontinued(O ther) DULoxetine (Cymbalta) [address] capsule Take 1 capsule (30 mg) by mouth 2 times daily. Do not crush or chew. 180 capsule 024 2024 Discontinued(R eorder (will not trigger notification to Pharmacy)) Semaglutide-Weig ht Management (Wegovy) 0.25 MG/0.5ML solution auto-injectorInd ications:Class 3 severe obesity due to excess calories without serious comorbidity with body mass index (BMI) of 40.0 to 44.9 in adult (CMS/[facility]) Inject 0.25 mg subcutaneously once a week for weeks 1-4 2 mL 3 024 2024 Discontinued(F ormulary change) Semaglutide-Weig ht Management (Wegovy) 0.5 MG/0.5ML solution auto-injectorInd ications:Class 3 severe obesity due to excess calories without serious comorbidity with body mass index (BMI) of 40.0 to 44.9 in adult ([facility]) Inject 0.5 mg subcutaneously weekly on weeks 5-8 2 mL 3 024 2024 Discontinued(F ormulary change) Tirzepatide-Weig ht Management (Zepbound) 2.5 MG/0.5ML solution auto-injectorInd ications:Obesity Inject 0.5 mL (2.5 mg) under the skin 1 (one) time per week. 2 mL 025 2024 propranolol (Inderal) 20 MG tabletIndication s:Intractable 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 aura and without status migrainosus Take 1 tablet (20 mg) by mouth 2 times daily. 60 tablet 11 025 2024 Discontinued(O ther) pregabalin (Lyrica) 75 MG capsuleIndicatio ns:Polyarthralgi a Take 1 capsule (75 mg) by mouth 2 times daily. 60 capsule 1 025 2024 Discontinued(R eorder (will not trigger notification to Pharmacy)) acetaminophen (Tylenol Extra Strength) 500 MG tablet Take 1 tablet (500 mg) by mouth every 6 (six) hours if needed for mild pain. 120 tablet 025 2024 cyclobenzaprine (Flexeril) 10 MG tablet Take 1 tablet (10 mg) by mouth at bedtime for 10 days. 10 tablet 025 2024 Discontinued(O ther) Tirzepatide-Weig ht Management (Zepbound) 5 MG/0.5ML solution auto-injector Inject 0.5 mL (5 mg) under the skin 1 (one) time per week. INJECT ONE PEN (= 5 MG) SUBCUTANEOUSLY ONCE A WEEK 2 mL 025 2024 Discontinued Active Problems Problem Noted Date Diagnosed Date Fibromyalgia 11/20/2024 Pulsatile tinnitus of both ears 11/20/2024 Chronic low back pain 10/09/2024 Assessment & [...] of migraines, was receiving a medication from [place], not sure of the name Will start [...] not effective. PTSD (post-traumatic stress disorder) 12/30/2023 Assessment & Plan (11/20/2024 11:13 AM EDT): During IBH Consult Jocelin presenting with excessive worry/anxiety, difficulty controlling worry, anxiety/worry associated to restlessness and/or feeling keyed-up/On edge , easily fatigued , difficulty concentrating and/or mind going blank , irritability, muscle tension , and sleep disturbance difficulty falling asleep, Fear , and sense of dread and Intrusive trauma memories and thoughts, Hypervigilance, Avoidance of trauma reminders/triggers, Increased startle response, Fear and distrust in relationships, Isolation from normal social supports, Withdrawn, Fear of social judgement, and Difficulty with crowds; for a period of 18+ mo, for most or all symptoms in the context of Trauma hx. Pt carries a diagnosis for PTSD per her medical chart- Jocelin feels anxious as baseline presentation of sxs. Triggers associated with her anxiety: past trauma experiences, fear of the unknown and constant What ifs . Jocelin is currently connected with psychopharmacology (Eric Ruff) and has a therapist in [place] (agency unknown). Pt will continue current treatment including psychotherapy and medication management. clinician will provide additional support as needed during next medical appointment. Pt will practice grounding techniques for anxiety. Homelessness 12/30/2023 Left foot pain 12/20/2022 Assessment [...] pharmacy. Hypothyroidism 11/13/2022 Generalized anxiety disorder 11/13/2022 Assessment & Plan (11/20/2024 11:13 AM EDT): During IBH Consult Jocelin presenting with excessive worry/anxiety, difficulty controlling worry, anxiety/worry associated to restlessness and/or feeling keyed-up/On edge , easily fatigued , difficulty concentrating and/or mind going blank , irritability, muscle tension , and sleep disturbance difficulty falling asleep, Fear , and sense of dread and Intrusive trauma memories and thoughts, Hypervigilance, Avoidance of trauma reminders/triggers, Increased startle response, Fear and distrust in relationships, Isolation from normal social supports, Withdrawn, Fear of social judgement, and Difficulty with crowds; for a period of 18+ mo, for most or all symptoms in the context of Trauma hx. Pt carries a diagnosis for PTSD per her medical chart- Jocelin feels anxious as baseline presentation of sxs. Triggers associated with her anxiety: past trauma experiences, fear of the unknown and constant What ifs . Jocelin is currently connected with psychopharmacology (Eric Ruff) and has a therapist in [place] (agency unknown). Pt will continue current treatment including psychotherapy and medication management. clinician will provide additional support as needed during next medical appointment. Pt will practice grounding techniques for anxiety. MACARIO (obstructive sleep apnea) 11/13/2022 Cervical disc disease 11/13/2022 Constipation 11/13/2022 Encounters * This document contains information received from the source organization and may not represent a complete record from that organization. Date Type Department Care Team Description 11/23/2024 Orders Only GENERIC EXTERNAL DATA DEPARTMENT Provider, [facility] External Data 11/20/2024 9:30 AM EDT Office Visit [facility] [address] [place] [address] Wendy Pang MD MACARIO (obstructive sleep apnea) (Primary Dx); Polyarthralgia; Hypothyroidism, unspecified type; Dietary counseling; Exercise counseling; Primary hypertension; Class 2 severe obesity due to excess calories with serious comorbidity and body mass index (BMI) of 39.0 to 39.9 in adult (CMS/[facility]); Health care maintenance; Fibromyalgia; Pulsatile tinnitus of both ears 11/20/2024 Travel 11/10/2024 Telephone [facility] [address] [place] [address] Wendy Pang MD chart prep 10/30/2024 Population Health Risk Score [facility] () Department [address] [phone] Provider, Population Health Generic 10/29/2024 Refill [facility] [address] [place] [address] Wendy Pang MD 10/26/2024 Orders Only GENERIC EXTERNAL DATA DEPARTMENT Provider, Generic External Data 10/26/2024 Refill [facility] [address] [place] [address] Patria Pappas ANP 10/16/2024 12:00 PM EST Office Visit [facility] [address] [place] [address] Gladys Cee MD Cervical paraspinous muscle spasm (Primary Dx); Mixed hyperlipidemia; Primary hypertension 10/16/2024 Travel 10/15/2024 Telephone [facility] [address] [place] [address] Wendy Pang MD Chart prep 10/15/[address] [address] Wendy Pang MD Medical Question 10/15/[address] [address] Wendy Pang MD Nurse Triage 10/14/[address] [address] Wendy Pang MD Results 10/07/2024 11:15 AM EST Office Visit [address] [address] Blank Gage CNP Polyarthralgia (Primary Dx); Chronic bilateral low back pain with bilateral sciatica; Intractable 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 aura and without status migrainosus 09/29/[address] [address] Wendy Pang MD Prior Authorization (Zepbound) 09/29/2024 Telephone [facility] [address] [place] [address] Wendy Pang MD Chart Prep 09/29/2024 Orders Only [address] [address] Mychal Raymond MD 09/24/[address] [address] Guadalupe Grimes RN 09/14/2024 Refill [facility] [address] [place] [address] Wendy Pang MD Mixed hyperlipidemia 09/04/2024 9:15 AM EST Office Visit [address] [address] Blank Gage CNP Polyarthralgia (Primary Dx); Type 2 diabetes mellitus without complication, without long-term current use of insulin ([facility]); Intractable 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 aura and without status migrainosus 09/03/[address] [address] Wendy Pang MD Chart Prep 09/03/2024 Telephone [facility] [address] [facility] [address] Wendy Pang MD Nurse Triage from Last 3 Months Immunizations Name Administration Dates Next Due Influenza, seasonal, injectable, preservative fr ee 06/16/2024 Tdap 04/28/2024 Zoster, Recombinant 10/26/2024,07/08/2024 Family History Medical History Relation Name Comments [...] Mass Index 38.89 11/20/2024 9:33 AM EDT Plan of Treatment Upcoming Encounters Date Type Department Care Team (Late st Contact Info) Description 12/01/2024 11:15 AM EDT Office Visit [facility] [address] [place] [address] Galilea Magda, OD [address] [place] [address] 12/17/2024 10:00 AM EDT Medication Management [facility] [address] [place] [address] 01/13/2025 11:30 AM EDT Office Visit [facility] [address] [place] [address] Wendy Pang MD [address] [place] [address] Health Maintenance Due Date Last Done Comments CT Colonography 1970 FIT DNA/Cologuard 1970 FIT 1970 FOBT 1970 Sigmoidoscopy 1970 Diabetes: Foot Exam 1980 Eye Exam 1980 Hepatitis B Vaccines (1 of 3 - 19+ 3-dose series) 1989 Pneumococcal Vaccine: 50+ Years (1 of 2 - PCV) 1989 Colonoscopy 01/09/2024 Colorectal Cancer Screening 01/09/2024 COVID-19 Vaccine (1 - 2023-2 5 season) 2024 Diabetes: Hemoglobin A1C 12/11/2024 024, 12/30/2023 SDOH Screening 01/14/2025 01/15/2024 Cervical Cancer Screening 02/10/2025 HPV/Cotest 02/10/2025 01/09/2024, 01/08/2024, 12/12/2022 Pap Smear 02/10/2025 01/09/2024, 01/08/2024, 12/12/2022 Mammogram 02/26/2025 02/27/2024, 01/21/2023, 01/21/2023 Depression Monitoring (PHQ-9) 05/22/2025, 11/20/2024 Diabetes: Urine Protein Screening 06/12/2025 06/12/2024 Lipid Panel 06/12/2025 06/12/2024 Alcohol/Substance Use Screening 11/20/2025 11/20/2024 Depression Screening 11/20/2025 11/20/2024, 11/20/2024 Tobacco Screening 11/20/2025 11/20/2024 DTaP/Tdap/Td Vaccines (2 - T d or Tdap) 04/28/2034 04/28/2024 RSV Patients and Patients Aged 60 years or older (1 - 1-dose 75+ series) 2045 Colposcopy Discontinued 02/11/2024, 01/31/2023, 01/31/2023 HIV Screening Completed 06/12/2024 Hepatitis C Screening Completed 06/12/2024 Influenza Vaccine Completed 06/16/2024 Zoster Vaccines Completed 10/26/2024, 07/08/2024 HIB Vaccines Aged Out No longer eligi [...] AUTO DIFFERENTIAL Routine 11/23/2024 9:08 AM EDT COMPREHENSIVE METABOLIC PANEL Routine 10/26/2024 11:48 AM EDT CBC WITH AUTO DIFFERENTIAL Routine 10/26/2024 11:48 AM EDT XR LUMBAR SPINE COMPLETE 4+ VIEWS Routine 10/08/2024 10:52 AM EST POCT GLUCOSE Routine 09/04/2024 9:24 AM EST Type 2 diabetes mellitus without complication, without long-term current use of insulin ([facility]) ALBUMIN, RANDOM URINE W/CREATININE Routine 06/12/2024 [...] Health Maintenance Results * CBC auto differential (11/23/2024 9:08 AM EDT) Only the most recent of2 resultswithin the time period is included. White Blood Count 7.5 4.8 - 10.8 X10*3/uL [facility] Red Blood Count 4.70 4.20 - 5.50 X10*6/uL [facility] Hemoglobin 14.3 12.0 - 16.0 g/dl [facility] Hematocrit 44.1 37.0 - 47.0 % [facility] Mean Corpuscular Volume 93.8 80.0 - 98.0 fL [facility] Mean Corpuscular Hemoglobin 30.4 27.0 - 33.0 pg [facility] Mean Corpuscular HGB Conc 32.4 31.0 - 35.0 g/dl [facility] Red Cell Distribution Width 13.6 11.0 - 16.0 % [facility] Platelet Count 161 160 - 400 X10*3/uL [facility] Mean Platelet Volume 11.1 9.4 - 12.3 fL [facility] Neutrophils Percent Auto 72.9 45 - 73 % [facility] Imm Gran Pct Auto 0.4 0.0 - 0.4 % [facility] Lymphocytes Percent Auto 20.9 20 - 40 % [facility] Monocytes Percent Auto 5.0 2 - 11 % [facility] Eosinophils Percent Auto 0.5 0 - 4 % [facility] Basophils Percent Auto 0.3 0 - 2 % [facility] NRBC Pct Auto 0.0 0.0 - 0.2 /100WBC [facility] Neutrophils Absolute Auto 5.4 2.0 - 8.3 x10*3/uL [facility] Imm Gran Abs Auto 0.03 0.00 - 0.03 X10*3/uL [facility] Lymphocytes Absolute Auto 1.6 1.2 - 4.9 X10*3/uL [facility] Monocytes Absolute Auto 0.4 0.1 - 1.2 X10*3/uL [facility] Eosinophils Absolute Auto 0.0 0.0 - 0.4 X10*3/uL [facility] Basophils Absolute Auto 0.0 0.0 - 0.2 X10*3/uL [facility] NRBC Abs Auto 0.000 0.0 - 0.012 X10*3/uL [facility] 11/23/2024 9:08 AM EDT 11/23/2024 9:11 AM EDT us Generic External Data Provider LAB BLOOD ORDERAB LES Final Result [facility] [address] [place] [phone] * (ABNORMAL) Comprehensive Metabolic Panel (10/26/2024 11:48 AM EDT) Sodium 141 135 - 145 mmol/L [facility] Potassium 4.0 3.3 - 5.1 mmol/L [facility] Chloride 110(H) 96 - 108 mmol/L [facility] Carbon Dioxide 24 22 - 29 mmol/L [facility] Anion Gap 11(L) 12 - 20 [facility] Urea Nitrogen (BUN) 21(H) 9 - 16 mg/dL [facility] Creatinine, Serum 0.70 0.5 - 1.4 mg/dL [facility] Estimated Glomerular Filt Rate >60 [facility] Comment:Chronic Kidney Disea se: Estimated GFR < 60 mL/min/[id number] Kidney Disease: Estimated GFR < 15 mL/min/1.73m2 Glucose 86 60 - 115 mg/dL [facility] Calcium 9.1 8.4 - 10.2 mg/dL [facility] Bilirubin, Total 0.5 0.0 - 1.0 mg/dL [facility] Aspartate Amino Transferase 45(H) 5 - 31 U/L [facility] Alanine Aminotransferase 38(H) 0 - 31 U/L [facility] Total Protein 8.6(H) 6.5 - 8.0 g/dL [facility] Albumin Level 4.3 3.5 - 5.0 g/dL [facility] Alkaline Phosphatase 78 39 - 117 U/L [facility] 10/26/2024 11:4 8 AM EDT 10/26/2024 11:48 AM EDT us Generic External Data Provider LAB BLOOD ORDERAB LES Final Result [facility] [address] [place] [phone] [phone] * XR Lumbar Spine Complete 4+ Views (10/08/2024 10:52 AM EST) Anatomical Region Laterality Modality Spine, L-spine Radiographic Jeanine ging 10/08/2024 10:5 2 AM EST Narrative 10/08/2024 11:43 AM EST ?[facility] ?[address] ?[place] [address] ?XRay Report ? Signed ? Patient: Jocelin Auguste ?M ?? R#: [id number] ? : 1970 ?Acct:[id number] ? Age/Sex: 54 / F ?ADM Date: 10/08/24 ? Loc: HO.HHCX ? Attending Dr: Blank Gage SOLIDS CONTROL TECHNICIAN ? Ordering Physician: Blank Gage ?? Date of Service: 10/08/24 ?? Procedure(s): XR lumbar spine 4V min ?? Accession Number(s): [id number] ? cc: Blank Gage ? EXAMINATION: ?? [...] DD/ 1052 ? TD/TT: 10/08/24 1100 ? Raimann Machine Operator: ? Procedure Note Carline Lynch - 10/08/[address] [address] XRay Report Signed Patient: Jo Auguste R#: [id number] : 1970Acct:[id number] Age/Sex: 54 / FADM Date: 10/08/24 Loc: HO.HHCX Attending Dr: Blank Gage SOLIDS CONTROL TECHNICIAN Ordering Physician: Blank Gage Date of Service: 10/08/24 Procedure(s): XR lumbar spine 4V min Accession Number(s): [id number] cc: Blank Gage EXAMINATION: XR LUMBOSACRAL SPINE [...] Jose Palacios MD 10/08/2024 11:40 AM EST RP Dictated By: Jose Palacios MD Signed By: <Electronically signed by Jose Palacios MD in OV> 10/08/24 1140 DD/ 1052 TD/TT: 10/08/24 1100 Raimann Machine Operator: Result [facility] LIVESTOCK BRANDS INSPECTOR IMG XR PROCEDURES Final R esult * POCT Glucose (09/04/2024 9:24 AM EST) Pathologist [facility] Glucose Blood, POC 160 60 - 200 mg/dL QC Media Lot # [id number] Lot# Expiration Date ,258,671 Blood Capillary blood specimen / Unknown 09/04/2024 9:24 AM EST Result [facility] POINT OF CARE TEST ENTER/ EDIT ORDERABLES Final Result * Albumin, Random Urine W/Creatinine (06/12/2024 11:40 AM EDT) Creatinine, Urine 195.62 mg/dL [facility] Microalbumin Urine 41.0 mg/L [facility] Microalbum Creatinine Ratio Ur 20.9 <30 ug/mg cr [facility] Comment:Albumin/Creatinine R atio Reference Ranges: Normal: < 30 ug/mg creatinine Microalbuminuria: 30 - 300 ug/mg creatinineClinical Albuminuria: > 300 ug/mg creatinine Urine (Urine, Random) 06/12/2024 11:40 AM EDT 06/12/2024 1:08 PM EDT Wendy Vance MD LAB URINE ORDERAB LES Final Result Performing Organization Address [facility]/ZIP Co de Phone Number [facility] [address] [place] [phone] * Hepatitis C Antibody with Reflex to HCV, RNA, Quantitative, Real-Time PCR (06/12/2024 11:39 AM EDT) Hepatitis C Antibody Nonreactive Nonreactive [facility] Comment:Antibodies to HCV no t detected; does not exclude early acuteHCV infection. Blood Venous blood specimen / Unknown 06/12/2024 11:39 AM EDT 06/12/2024 1:19 PM EDT Wendy Vance MD LAB BLOOD ORDERAB LES Final Result Performing Organization Address [facility] Co de Phone Number [facility] [address] [place] [phone] * HIV-1/2 Antigen and Antibodies, Fourth Generation, with Reflexes (06/12/2024 11:39 AM EDT) HIV AB/AG Nonreactive Nonreactive [facility] Comment:HIV-1 p24 Ag and/or HIV-1/HIV-2 Ab not detected.A test result that is nonreactive does not exclude thepossibility of exposure to or infection with HIV-1 and/orHIV-2. Nonreactive results in this assay for individualswith prior exposure to HIV-1 and/or HIV-2 may be due toantigen and antibody levels that are below the limit ofdetection of this assay.The DebitosniGlycode HIV Ag/Ab Combo assay result andsupplemental assay results should be interpreted inconjunction with the patient's clinical presentation,history and other laboratory results. If the results areinconsistent with clinical evidence, additional testing issuggested to confirm the result. Blood Venous blood specimen / Unknown 06/12/2024 11:39 AM EDT 06/12/2024 1:19 PM EDT us Wendy Vance MD LAB BLOOD ORDERAB LES Final Result Performing Organization Address City/[facility]/ZIP Co de Phone Number [facility] [address] [place] [phone] * Hemoglobin A1c (06/12/2024 11:39 AM EDT) Hemoglobin A1c 5.7 <6.0 % [facility] Comment:Hemoglobin A1C Refer ence Range Adults: 4.8 - 6.0 % Non diabetic: < 6.0 % Goal: < 7.0 %Additional Action Suggested: > 8.0 %Note: Hemoglobin A1c results are invalid for patients with abnormal amounts of HbF. Blood transfusions may impact the HbA1c concentration in the patient sample. Estimated Average Glucose 117 mg/dL [facility] Comment:eAG = Estimated ave rage glucose which is %A1C expressed asaverage glucose, using the formula of the T7W-BctsjlaYfhdtul Glucose study (ADAG), Diabetes Care, Vol.31,#8,Mar. 2007 Blood Venous blood specimen / Unknown 06/12/2024 11:39 AM EDT 06/12/2024 1:19 PM EDT us Wendy Vance MD LAB BLOOD ORDERAB LES Final Result Performing Organization Address City/[facility]/ZIP Co de Phone Number [facility] [address] [place] [phone] * (ABNORMAL) Lipid Panel, Standard (06/12/2024 11:39 AM EDT) Triglycerides 113 <150 mg/dL [facility] Comment:Desirable Triglyceri de: less than 150 mg/dLBorderline High Triglyceride 150-199 mg/dLHigh Triglyceride: 200-499 mg/dLVery High Triglyceride: greater than or equal to 5OO mg/dL Cholesterol 232(H) <200 mg/dL [facility] Comment:Desirable Cholestero l: less than 200 mg/dLBorderline High Cholesterol: 200-239 mg/dLHigh Cholesterol: greater than 239 mg/dL LDL Cholesterol Calculated 155(H) <100 mg/dL [facility] Comment:Desirable LDL: less than 100 mg/dLNear Optimal/Above Optimal LDL: 110- 129 mg/dLBorderline High LDL: 130-159 mg/dLHigh LDL: 160-189 mg/dLVery High LDL: greater than or equal to 190 mg/dL HDL Cholesterol 55 >40 mg/dL [facility] Comment:Desirable HDL: great er than 40 mg/dL Note: This HDL assay may give artificially low results in patients with liver disease. Blood Venous blood specimen / Unknown 06/12/2024 11:39 AM EDT 06/12/2024 1:19 PM EDT Wendy Vance MD LAB BLOOD ORDERAB LES Final Result Performing Organization Address [facility]/State/ZIP Co de Phone Number [facility] [address] [place] [phone] [phone] * BI Mammogram Screening Tomosynthesis Bilateral (02/27/2024 11:03 AM EDT) Anatomical Region Laterality Modality Breast Bilateral Mammography 02/27/2024 11:0 3 AM EDT Narrative 03/23/2024 10:37 PM EDT ? [facility] [place] ? [address] ?[place] [address] ? Mammography Report ? Signed ? Patient: ThompsonJocelin Davis ?M ?? R#: [id number] ? : 1970 ?Acct:[id number] ? Age/Sex: 53 / F ?ADM Date: 07//24 ? Loc: HO.MAMMO ? Attending Dr: Ronni Bautista MD ? Ordering Physician: Ronni Bautista MD ?Results: 1Negativ ?? e ? Date of Service: 02/27/24 ?Follow Up: 1 Year From Orig ?? inal Mammogram ? Procedure(s): MM tomosynthesis screening BI ?? Accession Number(s): [id number] ? cc: Wendy Pang MD; Ronni Bautista [...] by Lexie Silva MD in OV> ? 08// 2233 ? DD/ ? TD/TT: ? Raimann Machine Operator: ? Procedure Note Syed, Image - 03/23/2024 [facility]'s [address] [place] [address] Mammography Report Signed Patient: Jo Auguste R#: [id number] : 1970Acct:[id number] Age/Sex: 53 / FADM Date: 02/27/24 Loc: HO.MAMMO Attending Dr: Ronni Bautista MD Ordering Physician: Ronni Bautista MDResults: 1Negativ e Date of Service: 02/27/24Follow Up: 1 Year From Orig inal Mammogram Procedure(s): MM tomosynthesis screening BI Accession Number(s): [id number] cc: Wendy Pang MD; Ronni Bautista MD [...] signed by Lexie Silva MD in OV> 03/23/242232 DD/ 1103 TD/TT: Raimann Machine Operator: [facility] External Provider IMG BI PROCEDURES Final Result [...] Most Recently Relevant to Health Maintenance Insurance [employer] Care Teams Planishing Hammer Operator Relationship Specialty Start Date End Date Wendy Pang MD [address] [place] [address] PCP - General Internal Medicine 02/23/23
--- OUTSIDE RECORDS SUMMARY | 2024-11-23 09:34 | XMS_ITS | Encounter Summary ---
Author Organization [employer] Address [address] [facility] 7t [place] [address] Care Team Providers Care Technical Services Assistant Name Role Phone Wendy Pang MD Primary Care Pro vider Reason for Visit * Reason Onset Date Comments Accamodation Letter 06/25/2024 Encounter Details Date Type Department Care Team ([facility] st Contact Info) Description 06/25/2024 Telephone [facility] MEDICINE [address] [place] [address] Wendy Pang MD [address] [place] [address] Accamodation Letter Social History Tobacco Use Types [...] any questions you can contact pt at [phone]. (Swazi Speaker) documented in this encounter Plan of Treatment Upcoming Encounters Date Type Department Care Team (Late st Contact Info) Description 12/01/2024 11:15 AM EDT Office Visit [facility] OPTOMETRY [address] [place] [address] Magda Calero, OD [address] [place] [address] 12/17/2024 10:00 AM EDT Medication Management [facility] MEDICINE [address] [place] [phone] 01/13/2025 11:30 AM EDT Office Visit [facility] MEDICINE [address] [place] [address] Wendy Pang MD [address] [place] [address] documented as of this encounter Visit Diagnoses Not on filedocumented in this encounter Additional Health Concerns Assessment Noted Time PHQ-9 Depression Total Score: 10 024 1:15 PM EDT documented as of this encounter Care Teams Technical Services Assistant Relationship Specialty Start Date End Date Wendy Pang MD [address] [place] [address] PCP - General Internal Medicine 02/23/23 documented as of this encounter
--- OUTSIDE RECORDS SUMMARY | 2024-11-23 09:34 | XMS_ITS | Encounter Summary ---
Author Organization [employer] Address 75 [facility] 7t [place] [address] Care Team Providers Care Residential Green Building Designer Name Role Phone Wendy Martell MD Primary Care Provide r Wendy Pang MD Primary Care Pro vider Encounter Details Date Type Department Care Team (Late st Contact Info) Description 02/18/2023 Orders Only [facility] MEDICINE [address] [place] [phone] Jordana Jose CN [address] [place] [address] Social History Tobacco Use Types Packs/Day Years [...] Description 12/01/2024 11:15 AM EDT Office Visit [facility] OPTOMETRY [address] [place] [address] Magda Calero, OD [address] [place] [address] 12/17/2024 10:00 AM EDT Medication Management [facility] MEDICINE [address] [place] [address] 01/13/2025 11:30 AM EDT Office Visit [facility] MEDICINE [address] [place] [address] [phone] Wendy Pang MD [address] [place] [address] documented as of this encounter Procedures Procedure Name Priority Date/Time Associated Diagnosis Comments COLPOSCOPY Routine 01/31/2023 12:00 AM EDT documented in this encounter Results * Colposcopy (01/31/2023 12:00 AM EDT) us Ronni Bautista MD IN CLINIC/BEDSIDE ORDERABLES Fin al Result [facility] [address] [place] [address] [phone] documented in this encounter Visit Diagnoses Not on filedocumented in this encounter Care Teams Residential Green Building Designer Relationship Specialty Start Date End Date Wendy Martell MD [address] [place] [address] PCP - General Internal Medicine 11/22/22 02/22/23 Wendy Pang MD [address] [place], [place] [phone] PCP - General Internal Medicine 02/23/23 documented as of this encounter
--- OUTSIDE RECORDS SUMMARY | 2024-11-23 09:34 | XMS_ITS | Patient Health Record ---
Author Organization [facility] enter Address [address] [place] [address] Care Team Providers Care Plant Changer Name Role Phone Michael Muller Primary Care [...] Problem Status W/U Status Risk Notes Problem 56538512 Cervicalgia (M54.2) Active confirmed Problem 03031326993654 Morbid (severe) obesity due to excess calories (E66.01) Active confirmed Problem 896667385 Acquired hypothyroidism (E03.9) Active confirmed Problem 60892508 Hyperlipidemia, unspecified hyperlipidemia type (E78.5) Active confirmed Problem 528692076 Type 2 diabetes mellitus without complication, without long-term current use of insulin (E11.9) Active confirmed Problem 98806364 Dysphagia, unspecified type (R13.10) Active confirmed Problem 814334819 Depression with anxiety (F41.8) Active confirmed Problem 61475376 Sleep apnea, unspecified type (G47.30) Active confirmed Problem 779816614 History of asthm a (Z87.09) Active confirmed Problem 625087021 Ear itch (L29.9) Active confirmed Problem 238980014 History of sleep apnea (Z86.69) Active confirmed Problem 188333620 Body mass index [BMI] 40.0-44.9, adult (Z68.41) [...] End Date NICOLETTE Lynch [address] [place], [place] [id number] Jocelin Talley Self - patient is the insured DENTAL Medicaid HP [address] [place] [id number] Jocelin Talley Self - patient is the insured Medical (General) History Surgical History Surgery Date(Month/Year) c section x 3 bilat tubal Hospitalization History Reason Date(Month/Year) see surgical
--- OUTSIDE RECORDS SUMMARY | 2024-11-23 09:34 | XMS_ITS | Encounter Summary ---
Author Organization [employer] Address 75 [facility] 7t [place] [address] Care Team Providers Care Balance Staff Inspector Name Role Phone Wendy Pnag MD Primary Care Pro vider Reason for Visit * Reason Comments Med Refill Encounter Details Date Type Department Care Team (Late st Contact Info) Description 10/26/2024 Refill [facility] MEDICINE [address] [place], [place] [phone] Patria Pappas ANP [address] [place], [place] [phone] Social History Tobacco Use Types Packs/Day Years [...] Description 12/01/2024 11:15 AM EDT Office Visit [facility] OPTOMETRY [address] [place] [address] Magda Calero, OD [address] [place] [address] 12/17/2024 10:00 AM EDT Medication Management [facility] MEDICINE [address] [place] [address] 01/13/2025 11:30 AM EDT Office Visit [facility] MEDICINE [address] [place] [address] Wendy Pang MD [address] [place] [address] documented as of this encounter Visit Diagnoses Not on filedocumented in this encounter Additional Health Concerns Assessment Noted Time PHQ-9 Depression Total Score: 10 024 1:15 PM EDT documented as of this encounter Care Teams Balance Staff Inspector Relationship Specialty Start Date End Date Wendy Pang MD [address] [place] [phone] PCP - General Internal Medicine 02/23/23 documented as of this encounter
--- OUTSIDE RECORDS SUMMARY | 2024-11-23 09:34 | XMS_ITS | Encounter Summary ---
Author Organization [employer] Address [address] [facility] 7t [place] [address] Care Team Providers Care Timber Faller Name Role Phone Wendy Pang MD Primary Care Pro vider Encounter Details Date Type Department Care Team (Late st Contact Info) Description 08/13/2024 Telephone [facility] MEDICINE [address] [place], [place] [phone] Wendy Pang MD [address] [place] [address] Social History Tobacco Use Types Packs/Day Years [...] Description 12/01/2024 11:15 AM EDT Office Visit [facility] OPTOMETRY [address] [place] [address] Magda Calero, OD [address] [place] [address] 12/17/2024 10:00 AM EDT Medication Management [facility] MEDICINE [address] [place] [address] 01/13/2025 11:30 AM EDT Office Visit [facility] MEDICINE [address] [place] [address] Wendy Pang MD [address] [place], [place] [phone] documented as of this encounter Visit Diagnoses Not on filedocumented in this encounter Additional Health Concerns Assessment Noted Time PHQ-9 Depression Total Score: 10 024 1:15 PM EDT documented as of this encounter Care Teams Timber Faller Relationship Specialty Start Date End Date Wendy Pang MD [address] [place] [phone] PCP - General Internal Medicine 02/23/23 documented as of this encounter
--- OUTSIDE RECORDS SUMMARY | 2024-11-23 09:34 | XMS_ITS ---
Author Organization [facility] enter Address [address] [place] [address] Care Team Providers Care Bss Solution Architect Name Role Phone Michael Muller Primary Care Provider [phone] Allergies No Known Allergies REASON FOR [...] Problem Status W/U Status Risk Notes Problem 03269689 Cervicalgia (M54.2) Active confirmed Problem 411137435 History of sleep apnea (Z86.69) Active confirmed Problem 673844714 History of asthma (Z87.09) Active confirmed Vital Signs Temperature 96.8 degrees Fahrenheit 08/06/20 23 Blood pressure systolic 142 mm Hg 08/06/20 23 Blood pressure diastolic 74 mm Hg 023 Heart Rate 88 /min 08/06/2023 Respiratory Rate 17 /min 08/06/2023 Height 60 in 08/06/2023 Weight 226 lbs 08/06/2023 BMI 44.13 kg/m2 08/06/2023 Oximetry 98 % 08/06/2023 Height-cm 152.4 cm 08/06/2023 Weight-kg 102.51 kg 08/06/2023 Encounters Encounter Location Date Provider Diagnosis 401-Internal Medicine [address] [place] [address] 08/06/2023 Michael Ruiz Cervicalgia M54.2 ; History [...] MALIHA RUDOLPH LilliamPaula B:1970 (53 yo F)Acc No.[id number]:08/06/2023 Progress Note Patient:?Jocelin MACKEY Provider:?Michael Muller MD :1970???Age:53 Y???Sex:Female D ate:08/06/2023 Address:[address] [place] [address], [place] [address] Check In:10:28 AM ESTCheck O ut:11:27 AM [...] a history of sleep apnea [place] in [place]. She wasn't stephen to get a CPAP [...] * Images: Billing Information: * Visit Code:? [id number] Established Visit - Level 3 - 15min. * Procedure Codes:? * Sign off status: Completed true * Provider:?Michael Mullre MD Date:? 023 Generated for Printi ng/Fatoddg/eTransmitting on:?11/23/2024 09:33 AM EDT History and Physical Notes * [...] a history of sleep apnea diagnosed in [place]. She wasn't stephen to get a CPAP [...] General Examination GENERAL APPEARANCE: in no ac [place] distress, well developed, well nourished EYES: pupils [...]
--- OUTSIDE RECORDS SUMMARY | 2024-11-23 09:34 | XMS_ITS ---
Author Organization [facility] enter Address [address] [place] [address] Care Team Providers Care Hazard Mitigation Officer Name Role Phone Michael Muller Primary Care Provider Claudia Stafford [phone] REASON FOR VISIT FMX + Exam Encounters Encounter Location Date Provider Diagnosis [facility]Dental [address] [place] [address] 09/10/2023 Claudia Stafford Plan Of Treatment No Information Progress Notes * MALIHA Carmen GALDAMEZ B:1970 (54 yo F)Acc No.[id number]:09/10/2023 Progress Note Patient:?MALIHA WILDERABAJocelin CORNEJO Provider:?Claudia Stafford DMD :1970???Age:53 Y???Sex:Female D ate:09/10/2023 Address:[address] [place] [address], [address] [phone] Pcp:Michael Muller Subjective: * Chief Complaints: * ???1. FMX + Exam. * Medical History:? * Implants:? Objective: * Vitals:? Assessment: Plan: * Treatment: * Images: Billing Information: * Visit Code:? * Procedure Codes:? * Electronic signature of Janet Stafford DMD on 11/23/2024 at 09:33 AM EDT Sign off status: Pending * Provider:Sona Stafford DMD Date:?08/20 Generated for [employer] santana/Fatoddg/eTransmitting on:?11/23/2024 09:33 AM EDT
[2024-11-23 09:51] LABS: Alanine Aminotransferase 43 U/L (0-31); Albumin Level 4.4 g/dL (3.5-5.0); Alkaline Phosphatase 74 U/L (39-117); Anion Gap 13 (12-20); Aspartate Amino Transferase 44 U/L (5-31); Bilirubin Total 0.3 mg/dL (0.0-1.0); Blood Urea Nitrogen 15 mg/dL (9-16); Calcium 9.2 mg/dL (8.4-10.2); Carbon Dioxide 22 mmol/L (22-29); Chloride 109 mmol/L (96-108); Creatinine Clr Calc Pharmacy 89.5; Estimated Glomerular Filt Rate > 60; Glucose Random 89 mg/dL (60-115); Potassium 3.9 mmol/L (3.3-5.1); Sodium 140 mmol/L (135-145); Total Protein 8.1 g/dL (6.5-8.0)
[2024-11-23 10:04] LABS: Troponin-I High Sensitivity < 2.7 ng/L (<3.5-17.0)
[2024-11-23] MEDS: iohexoL 350 MG/ML 100 ML INFUS..BTL IV (11:34)
[2024-11-23] MEDS: diazePAM 10 MG/2 ML CARTRIDGE 2.5 MG IVPUSH (11:37)
[2024-11-23] MEDS: Ketorolac Tromethamine 15 MG/ML VIAL IVPUSH (12:48)
== END 2024-11-23 14:38 | disposition home or self-care (01) ==
PROVIDERS: Registered Nurse Emergency; Emergency Provider Emergency Medicine
DX: G44.209 Tension-type headache, unspecified, not intractable (principal); M54.2 Cervicalgia; M79.7 Fibromyalgia; Z79.899 Other long term (current) drug therapy
CPT/HCPCS: 36415; 70496; 70498; 80053; 84484; 85025; 93005; 96374; 96375; 99284; 99285; J1885; J3360; Q9967

== ENCOUNTER → 2024-11-23 08:45 | Outpatient (BNV) | payer MEDICAID, SELFPAY | PROVIDERS: Emergency Provider Emergency Medicine; Visit Provider Radiology Diagnostic Radiology | DX: R51.9 Headache, unspecified (principal); M54.2 Cervicalgia; I10 Essential (primary) hypertension | CPT/HCPCS: 70496; 70498 ==

== ENCOUNTER → 2024-11-23 08:45 | Outpatient (BNV) | payer MEDICAID, SELFPAY | PROVIDERS: Emergency Provider Emergency Medicine; Visit Provider Internal Medicine Cardiovascular Disease | DX: M54.2 Cervicalgia (principal) | CPT/HCPCS: 93010 ==

== ENCOUNTER 2024-12-01 09:59 | Outpatient (REF) | payer MEDICAID, SELFPAY ==
--- NOTE | ~2024-12-01 | XR_ITS ---
EXAMINATION: XR CERVICAL SPINE CLINICAL INFORMATION: PAIN COMPARISON: May 29, 2024. TECHNIQUE: 6 views of the cervical spine.. FINDINGS: Craniocervical junction is intact. Marginal osteophyte formation and endplate sclerosis and intervertebral disc height C5-6 and C6-7 levels. No gross malalignment. Marginal osteophyte formation resulting in mild neuroforamina narrowing C5-6 and C6-7 levels. Upper airways patent XR/XR cervical spine 5V IMPRESSION: Cervical spondylosis C5-6 and C6-7 levels. Electronically signed by: Jero Nickerson MD 12/01/2024 10:56 AM EDT
--- OUTSIDE RECORDS SUMMARY | 2024-12-01 11:34 | XMS_ITS | Clinical Summary ---
Author Organization [employer] Address [address] [facility] [address] [place] [address] Care Team Providers Care Cloth Inspector Name Role Phone Wendy Pang MD [...] day. 30 tablet 1 025 2025 Active acetaminophen (Tylenol Extra Strength) 500 MG tabletIndication s:Neck pain Take 2 tablets (1,000 mg) by mouth every 8 (eight) hours if needed for mild pain or moderate pain for up to 10 days. 30 tablet 025 2024 Active tiZANidine (Zanaflex) 4 MG tabletIndication s:Neck pain Take 1 tablet (4 mg) by mouth every 8 (eight) hours if needed for muscle spasms for up to 10 days. 30 tablet 025 2024 Active fluticasone (Flonase) 50 MCG/ACT nasal sprayIndications :Unspecified Eustachian tube disorder, left ear Administer 2 sprays into each nostril Once per day. Shake gently. Before first use, prime pump. After use, clean tip and replace cap. 16 g 2 025 2025 Active cetirizine (ZyrTEC) 10 MG [...] without long-term current use of insulin (CMS/HCC) TAKE 1 TABLET BY MOUTH EVERY DAY WITH FOOD 90 tablet 1 024 2024 Discontinued(O ther) DULoxetine (Cymbalta) [address] capsule Take 1 capsule (30 mg) by mouth 2 times daily. Do not crush or chew. 180 capsule 024 2024 Discontinued(R eorder (will not trigger notification to Pharmacy)) propranolol (Inderal) 20 MG tabletIndication s:Intractable chronic [...] Active Problems Problem Noted Date Diagnosed Date Neck pain 11/27/2024 Assessment & Plan (11/27/2024 1:30 PM EDT): Pt with muscle spasm on left side of neck, no known trauma Minimal benefit from cyclobenzaprine Ct wnl Trial tizanidine Counseled regarding not exceeding dose of ibuprofen but may add acetaminophen Pt has upcoming physical therapy visit X-ray ordered Unspecified Eustachian tube disorder, left ear 0 11/27/2024 Assessment & Plan (11/27/2024 1:29 PM EDT): Will trial topical nasal steroid for eustachian tube dysfunction Monitor If pain increases Return to clinic Fibromyalgia 11/20/2024 Pulsatile tinnitus of both ears [...] of migraines, was receiving a medication from [place], not sure of the name Will start [...] (Eric Ruff) and has a therapist in [place] (agency unknown). Pt will continue current treatment [...] results Primary hypertension 11/13/2022 Assessment & Plan (11/27/2024 1:28 PM EDT): Pt has not taken medications today, Reviewed elevated bp and pt will resume medication when at home Assessment & Plan (10/16/2024 2:22 PM EST): [...] (Eric Ruff) and has a therapist in [place] (agency unknown). Pt will continue current MH treatment including psychotherapy and medication management. clinician will provide additional support as needed during next medical appointment. Pt will practice grounding techniques for anxiety. MACARIO (obstructive sleep apnea) 11/13/2022 Cervical disc disease 11/13/2022 Constipation 11/13/2022 Encounters * This document contains information received from the source organization and may not represent a complete record from that organization. Date Type Department Care Team Description 12/01/2024 11:15 AM EDT Office Visit [facility] [address] [place] [address] Magda Calero, OD Arrived 12/01/2024 10:15 AM EDT Office Visit [facility] [address] [place] [phone] Karissa Joy MD Generalized anxiety disorder (Primary Dx) 12/01/2024 Orders Only [facility] [address] [place] [address] [phone] Lana Obrien NP 12/01/2024 Travel 11/27/2024 1:00 PM EDT Office Visit [facility] [address] [place] [phone] Lana Obrien NP Neck pain (Primary Dx); Unspecified Eustachian tube disorder, left ear; Primary hypertension 11/25/2024 Telephone [facility] [address] [place] [phone] Wendy Pang MD Durable Medical Equipment 11/23/2024 Orders Only GENERIC EXTERNAL DATA DEPARTMENT Provider, Generic External Data 11/20/2024 9:30 AM EDT Office Visit [facility] [address] [place] [address] [place] [address] Wendy Pang MD MACARIO (obstructive sleep apnea) (Primary Dx); Polyarthralgia; Hypothyroidism, unspecified type; Dietary counseling; Exercise counseling; Primary hypertension; Class 2 severe obesity due to excess calories with serious comorbidity and body mass index (BMI) of 39.0 to 39.9 in adult ([facility]); Health care maintenance; Fibromyalgia; Pulsatile tinnitus of both ears 11/20/2024 Travel 11/10/2024 Telephone [facility] [address] [place] [address] Wendy Pang MD chart prep 10/30/20[address] [facility] () Department [address] [id number] Provider, Population Health Generic 10/29/2024 Refill [facility] [address] [place] [address] Wendy Pang MD 10/26/2024 Orders Only GENERIC EXTERNAL DATA DEPARTMENT Provider, Generic External Data 10/26/2024 Refill [facility] [address] [place] [address] Patria Pappas, CASE 10/16/2024 12:00 PM EST Office Visit [facility] [address] [place] [address] Gladys Cee MD Cervical paraspinous muscle spasm (Primary Dx); Mixed hyperlipidemia; Primary hypertension 10/16/2024 Travel 10/15/2024 Telephone [facility] [address] [place] [phone] Wendy Pang MD Chart prep 10/15/2024 Telephone [facility] [address] [place] [phone] Wendy Pang MD Medical Question 10/15/2024 Telephone [facility] [address] [place] [address] Wendy Pang MD Nurse Triage 10/14/[address] [address] Wendy Pang MD Results 10/07/2024 11:15 AM EST Office Visit [facility] [address] [place] [phone] Blank Gage CNP Polyarthralgia (Primary Dx); Chronic bilateral low back pain with bilateral sciatica; Intractable 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 aura and without status migrainosus 09/29/[address] [phone] Wendy Pang MD Prior Authorization ([employer]) 09/29/2024 Telephone [facility] [address] [place] [address] Wendy Pang MD Chart Prep 09/29/2024 Orders Only [facility] [address] [place] [phone] Mychal Raymond MD 09/24/2024 Refill [facility] [address] [place] [phone] Guadalupe Grimes RN 09/14/2024 Refill [facility] [address] [place] [address] Wendy Pang MD Mixed hyperlipidemia 09/04/2024 9:15 AM EST Office Visit [address] [address] Blank Gage CNP Polyarthralgia (Primary Dx); Type 2 diabetes mellitus without complication, without long-term current use of insulin ([facility]); Intractable 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 aura and without status migrainosus 09/03/[address] [address] Wendy Pang MD Chart Prep 09/03/[address] [address] Wendy Pang MD Nurse Triage from Last [...] Sign Reading Time Taken Comments Blood Pressure 161/87 11/27/2024 1:04 PM EDT Pulse 88 11/27/2024 1:04 PM EDT Temperature 36.6 ??C (97.8 ??F) 11/27/2024 1:04 PM ED T Respiratory Rate 18 11/27/2024 1:04 PM EDT Oxygen Saturation 98% 11/27/2024 1:04 PM EDT Inhaled Oxygen Concentration - - Weight 96.3 kg (212 lb 3.2 oz) 11/27/2024 1:04 P M EDT Height 157.5 cm (5' 2 ) 11/27/2024 1:04 PM EDT Body Mass Index 38.81 11/27/2024 1:04 PM EDT Plan of Treatment Upcoming Encounters Date Type Department Care Team (Late st Contact Info) Description 12/17/2024 10:00 AM EDT Medication Management [facility] [address] [place] [address] [phone] 01/13/2025 11:30 AM EDT Office Visit [facility] [address] [place] [phone] Wendy Pang MD [address] [place] [address] [phone] Health Maintenance Due Date Last Done Comments CT Colonography 1970 FIT DNA/Cologuard 1970 FIT 1970 FOBT 1970 Sigmoidoscopy 1970 Diabetes: Foot Exam 1980 Hepatitis B Vaccines (1 of 3 - 19+ 3-dose series) 1989 Pneumococcal Vaccine: 50+ Years (1 of 2 - PCV) 1989 Colonoscopy 01/09/2024 Colorectal Cancer Screening 01/09/2024 COVID-19 Vaccine ( - season) 2024 Diabetes: Hemoglobin A1C 12/11/2024 06/12/2024, 0510/2023 SDOH Screening 01/14/2025 01/15/2024 Cervical Cancer Screening 02/10/2025 HPV/Cotest 02/10/2025 01/09/2024, 12/18, 12/12/2022 Pap Smear 02/10/2025 01/09/2024, 12/18, 12/12/2022 Mammogram 02/26/2025 02/27/2024, 06/0 12/2022, 01/21/2023 Depression Monitoring 05/22/2025 11/20/2024, 025 Diabetes: Urine Protein Screening 06/12/2025 06/12/2024 Lipid Panel 06/12/2025 06/12/2024 Alcohol/Substance Use Screening 11/20/2025 11/20/2024 Depression Screening 11/20/2025 11/20/2024, 11/21/19 Tobacco Screening 12/01/2025 12/01/2024 Eye Exam 12/01/2026 12/01/2024, 11/17, 12/01/2024, Additional history exists DTaP/Tdap/Td Vaccines (2 - Td or Tdap) 04/28/2034 04/28/2024 RSV Patients and Patients Aged 60 years or older (1 - 1-dose 75+ series) 2045 Colposcopy Discontinued 02/11/2024, 01/17, 01/31/2023 HIV Screening Completed 06/12/2024 Hepatitis C [...] Name Priority Date/Time Associated Diagnosis Comments XR CERVICAL SPINE 5V Routine 12/01/2024 10:01 AM EDT CTA HEAD NECK W AND WO CONTRAST Routine 11/23/2024 11:24 AM EDT HIGH SENSITIVITY TROPONIN I Routine 11/23/2024 9:08 AM EDT COMPREHENSIVE METABOLIC PANEL Routine 11/23/2024 9:08 AM EDT CBC WITH AUTO DIFFERENTIAL Routine 11/23/2024 9:08 AM EDT COMPREHENSIVE METABOLIC PANEL Routine 10/26/2024 11:48 AM EDT CBC WITH AUTO DIFFERENTIAL Routine 10/26/2024 11:48 AM EDT XR LUMBAR SPINE COMPLETE 4+ VIEWS Routine 10/08/2024 10:52 AM EST POCT GLUCOSE Routine 09/04/2024 9:24 AM EST Type 2 diabetes mellitus without complication, without long-term current use of insulin ([facility]) ALBUMIN, RANDOM URINE W/CREATININE Routine 06/12/2024 11:40 [...] Relevant to Health Maintenance Results * XR CERVICAL SPINE 5V (12/01/2024 10:01 AM EDT) Anatomical Region Laterality Modality Abdomen Radiographic Jeanine ging 12/01/2024 10:0 1 AM EDT Narrative 12/01/2024 10:59 AM EDT ?[facility] ?[address] ?[place] [address] ?XRay Report ? Signed ? Patient: Jocelin Auguste ?M ?? R#: [id number] ? : 1970 ?Acct:[id number] ? Age/Sex: 54 / F ?ADM Date: 12/01/24 ? Loc: HO.HHCX ? Attending Dr: Lana Obrien ULTRASOUND COORDINATOR ? Ordering Physician: Lana Obrien ULTRASOUND COORDINATOR ?? Date of Service: 12/01/24 ?? Procedure(s): XR cervical spine 5V ?? Accession Number(s): [id number] ? cc: Lana Obrien ULTRASOUND COORDINATOR ? EXAMINATION: ?? XR CERVICAL SPINE ? CLINICAL INFORMATION: ?? PAIN ? COMPARISON: ?? May 29, 2024. ? TECHNIQUE: ?? 6 views of the cervical spine.. ? FINDINGS: ?? Craniocervical junction is intact. Marginal osteophyte formation and ?? endplate sclerosis and intervertebral disc height C5-6 and C6-7 levels. ?? No gross malalignment. ?? Marginal osteophyte formation resulting in mild neuroforamina narrowing ?? C5-6 and C6-7 levels. ?? Upper airways patent ? XR/XR cervical spine 5V ?? IMPRESSION: ?? Cervical spondylosis C5-6 and C6-7 levels. ? Electronically signed by: ??Jero Nickerson MD ??12/01/2024 10:56 AM ?? EDT RP ? Dictated By: ?Jero Avilez MD ? Signed By: ?<Electronically signed by Jero Grimes MD in OV> ? 12/01/24 1056 ? DD/ 1001 ? TD/TT: 12/01/24 1035 ? Commercial [employer] Estimator: ? Procedure Note Syed, Carline - 12/01/2024 [facility] [address] [place] [address] XRay Report Signed Patient: Jo Auguste R#: [id number] : 1970Acct:[id number] Age/Sex: 54 / FADM Date: 12/01/24 Loc: HO.HHCX Attending Dr: Lana Obrien ULTRASOUND COORDINATOR Ordering Physician: Lana Obrien NP Date of Service: 12/01/24 Procedure(s): XR cervical spine 5V Accession Number(s): [id number] cc: Lana Obrien ULTRASOUND COORDINATOR EXAMINATION: XR CERVICAL SPINE CLINICAL INFORMATION: PAIN COMPARISON: May 29, 2024. TECHNIQUE: 6 views of the cervical spine.. FINDINGS: Craniocervical junction is intact. Marginal osteophyte formation and endplate sclerosis and intervertebral disc height C5-6 and C6-7 levels. No gross malalignment. Marginal osteophyte formation resulting in mild neuroforamina narrowing C5-6 and C6-7 levels. Upper airways patent XR/XR cervical spine 5V IMPRESSION: Cervical spondylosis C5-6 and C6-7 levels. Electronically signed by: Jero Nickerson MD 12/01/2024 10:56 AM EDT Dictated By: Jero Avilez MD Signed By: <Electronically signed by Jero Grimes MDin OV> 12/01/24 1056 DD/ 1001 TD/TT: 12/01/24 1035 Commercial [employer] Estimator: Lana Obrien NP IMG XR PROCEDURES Final Result * CTA Head Neck w/ and w/o Contrast (11/23/2024 11:24 AM EDT) Anatomical Region Laterality Modality Head, Neck Computed Tomogra phy 11/23/2024 11:2 4 AM EDT Narrative 11/23/2024 12:17 PM EDT ? [facility] ?[address] ?[place] [address] ? CT Scan Report ? Signed ? Patient: Donna Durán,Jocelin ?M ?? R#: [id number] ? : 1970 ?Acct:[id number] ? Age/Sex: 54 / F ?ADM Date: 04/07/25 ? Loc: HO.ED ? Attending Dr: ? Ordering Physician: Amaya Liu NP ?? Date of Service: 11/23/24 ?? Procedure(s): CT angio head neck ?? Accession Number(s): [id number] ? cc: [facility]; Amaya Liu NP ? Report Number: ?? [id number]: Total DLP = 1352.00 mGy-cm ?? EXAMINATION: ?? CT ANGIOGRAM HEAD AND NECK ? CLINICAL INFORMATION: ?? Headache, neck pain, hypertension. ? COMPARISON: ?? None available. ? TECHNIQUE: ?? Noncontrast axial imaging of the head was performed. This was followed ?? by test bolus sequences and head and neck intravenous bolus ?? administration 70 mL of Omnipaque 350. Helical imaging was performed in ?? the axial plane from the aortic arch to the skull vertex. The data was ?? processed at the microbiology technologist's workstation for generation of MIP ?? sequences. Angled MIPs and volume rendered reformatted images were also ?? generated at an offline 3D workstation. Stenoses are assessed in ?? accordance with NASCET criteria unless otherwise indicated. ? This CT examination was performed using dose optimization techniques as ?? appropriate, variously including the following: ?? *Automated exposure control ?? *Adjustment of mA and/or kV according to patient size (this includes ?? techniques or standardized protocols for targeted exams where dose is ?? matched to indication/reason for exam; i.e. extremities or head) ?? *Use of iterative reconstruction technique ? FINDINGS: ? NONCONTRAST HEAD CT: ?? There is no evidence of intracranial hemorrhage or extra-axial fluid ?? collection. ?? There is no mass effect, or edema. No CT evidence of acute territorial ?? infarct. ?? Ventricles, sulci, and cisterns are normal in size and configuration ?? for patient age. No hydrocephalus. No midline shift. ?? Negative hyperdense MCA sign. Negative insular ribbon sign. ? No significant white matter abnormalities. ? Globes and orbital contents image normally. ?? No extracranial soft tissue abnormalities. ? The paranasal sinuses, mastoid air cells, and tympanic cavities are ?? normally aerated. ?? No suspicious bony abnormalities. ? NECK CTA: ?? -AORTIC ARCH: Normal in caliber. Mild atheromatous calcification. ?? 2-vessel branching pattern. ?? -GREAT VESSEL ORIGINS: Widely patent. No stenosis. ? -RIGHT COMMON CAROTID ARTERY: Normal in course and caliber to the level ?? of the bifurcation. ?? -CERVICAL RIGHT INTERNAL CAROTID ARTERY: Normal opacification without ?? focal stenosis or occlusion. ? -LEFT COMMON CAROTID ARTERY: Normal in course and caliber to the level ?? of the bifurcation. ?? -CERVICAL LEFT INTERNAL CAROTID ARTERY: Normal opacification without ?? focal stenosis or occlusion. ? -CERVICAL RIGHT VERTEBRAL ARTERY: Normal in course and caliber into the ?? skull base. ?? -CERVICAL LEFT VERTEBRAL ARTERY: Mildly dominant. Normal in course and ?? caliber into the skull base. ? OTHER, SOFT TISSUES: ?? -No lymphadenopathy or mass. No abnormal fluid collection or soft ?? tissue swelling. ?? -Normal thyroid. ?? -Imaged superior mediastinal structures normal. ?? -Imaged lung apices clear. ?? -Mild degenerative changes of the cervical spine. ? CTA OF THE BRAIN: ? -INTRACRANIAL INTERNAL CAROTID ARTERIES: No focal stenosis or ?? occlusion. No aneurysm. ? -RIGHT ANTERIOR CEREBRAL ARTERY: The A1 segment is diminutive. Normal ?? arborization of the distal segments. ?? -LEFT ANTERIOR CEREBRAL ARTERY: Normal A1 segment.. Normal arborization ?? of the distal segments. ?? -ANTERIOR COMMUNICATING ARTERY: Normal. ? -RIGHT MIDDLE CEREBRAL ARTERY: Normal M1 segment of the MCA without ?? focal stenosis or occlusion. Normal arborization of the distal segments. ?? -LEFT MIDDLE CEREBRAL ARTERY: Normal M1 segment of the MCA without ?? focal stenosis or occlusion. Normal arborization of the distal segments. ? -RIGHT VERTEBRAL ARTERY V4: Normal in course and caliber. Normal PICA ?? branch. ?? -LEFT VERTEBRAL ARTERY V4: Normal in course and caliber. There is a ?? AICA/PICA. ?? -BASILAR ARTERY: Normal without focal stenosis or occlusion. Normal ?? appearance of the proximal superior cerebellar arteries. Normal basilar ?? tip. ? -RIGHT POSTERIOR CEREBRAL ARTERY: The P1 segment is diminutive. Partial ?? origin of the HYDRO STATION SUPERVISOR with robust opacification of the posterior ?? communicating artery. Normal opacification of the distal HYDRO STATION SUPERVISOR segments. ?? -LEFT POSTERIOR CEREBRAL ARTERY: Normal P1 segment. Normal ?? opacification of the distal HYDRO STATION SUPERVISOR segments. ?? -POSTERIOR COMMUNICATING ARTERIES: The left is dominant. The right is ?? diminutive. ? Normal opacification of the superior sagittal, straight, transverse, ?? and sigmoid sinuses. No venous thrombosis. ? No space-occupying hemorrhage or definite evolving infarct. ? CT/CT angio head neck ?? IMPRESSION: ? NONCONTRAST HEAD CT: ?? 1. No acute intracranial abnormality. ? CTA NECK: ?? 1. No evidence of major arterial vascular stenosis, occlusion, or ?? dissection. ? CTA HEAD: ?? 1. No evidence of major arterial vascular occlusion, stenosis, ?? dissection, or aneurysm. ?? 2. Patent major cortical and dural venous sinuses. ? Electronically signed by: ??Jose Palacios MD ??11/23/2024 12:14 PM EDT RP ? Dictated By: ?Jose Palacios MD ? Signed By: ?<Electronically signed by Jose Palacios MD in OV> ?11/23/24 1214 ? DD/ 1124 ? TD/TT: 11/23/24 1153 ? Commercial Construction Estimator: ? Procedure Note Carline Lynch - 11/23/[address] [address] [address] Scan Report Signed Patient: Jo Auguste R#: [id number] : 1970Acct:[id number] Age/Sex: 54 / FADM Date: 11/23/24 Loc: HO.ED Attending Dr: Ordering Physician: Amaya Liu NP Date of Service: 11/23/24 Procedure(s): CT angio head neck Accession Number(s): [id number] cc: [facility]; Amaya Liu NP Report Number: [id number]: Total DLP = 1352.00 mGy-cm EXAMINATION: CT ANGIOGRAM HEAD AND NECK CLINICAL INFORMATION: Headache, neck pain, hypertension. COMPARISON: None available. TECHNIQUE: Noncontrast axial imaging of the head was performed. This was followed by test bolus sequences and head and neck intravenous bolus administration 70 mL of Omnipaque 350. Helical imaging was performed in the axial plane from the aortic arch to the skull vertex. The data was processed at the microbiology technologist's workstation for generation of MIP sequences. Angled MIPs and volume rendered reformatted images were also generated at an offline 3D workstation. Stenoses are assessed in accordance with NASCET criteria unless otherwise indicated. This CT examination was performed using dose optimization techniques as appropriate, variously including the following: *Automated exposure control *Adjustment of mA and/or kV according to patient size (this includes techniques or standardized protocols for targeted exams where dose is matched to indication/reason for exam; i.e. extremities or head) *Use of iterative reconstruction technique FINDINGS: NONCONTRAST HEAD CT: There is no evidence of intracranial hemorrhage or extra-axial fluid collection. There is no mass effect, or edema. No CT evidence of acute territorial infarct. Ventricles, sulci, and cisterns are normal in size and configuration for patient age. No hydrocephalus. No midline shift. Negative hyperdense MCA sign. Negative insular ribbon sign. No significant white matter abnormalities. Globes and orbital contents image normally. No extracranial soft tissue abnormalities. The paranasal sinuses, mastoid air cells, and tympanic cavities are normally aerated. No suspicious bony abnormalities. NECK CTA: -AORTIC ARCH: Normal in caliber. Mild atheromatous calcification. 2-vessel branching pattern. -GREAT VESSEL ORIGINS: Widely patent. No stenosis. -RIGHT COMMON CAROTID ARTERY: Normal in course and caliber to the level of the bifurcation. -CERVICAL RIGHT INTERNAL CAROTID ARTERY: Normal opacification without focal stenosis or occlusion. -LEFT COMMON CAROTID ARTERY: Normal in course and caliber to the level of the bifurcation. -CERVICAL LEFT INTERNAL CAROTID ARTERY: Normal opacification without focal stenosis or occlusion. -CERVICAL RIGHT VERTEBRAL ARTERY: Normal in course and caliber into the skull base. -CERVICAL LEFT VERTEBRAL ARTERY: Mildly dominant. Normal in course and caliber into the skull base. OTHER, SOFT TISSUES: -No lymphadenopathy or mass. No abnormal fluid collection or soft tissue swelling. -Normal thyroid. -Imaged superior mediastinal structures normal. -Imaged lung apices clear. -Mild degenerative changes of the cervical spine. CTA OF THE BRAIN: -INTRACRANIAL INTERNAL CAROTID ARTERIES: No focal stenosis or occlusion. No aneurysm. -RIGHT ANTERIOR CEREBRAL ARTERY: The A1 segment is diminutive. Normal arborization of the distal segments. -LEFT ANTERIOR CEREBRAL ARTERY: Normal A1 segment.. Normal arborization of the distal segments. -ANTERIOR COMMUNICATING ARTERY: Normal. -RIGHT MIDDLE CEREBRAL ARTERY: Normal M1 segment of the MCA without focal stenosis or occlusion. Normal arborization of the distal segments. -LEFT MIDDLE CEREBRAL ARTERY: Normal M1 segment of the MCA without focal stenosis or occlusion. Normal arborization of the distal segments. -RIGHT VERTEBRAL ARTERY V4: Normal in course and caliber. Normal PICA branch. -LEFT VERTEBRAL ARTERY V4: Normal in course and caliber. There is a AICA/PICA. -BASILAR ARTERY: Normal without focal stenosis or occlusion. Normal appearance of the proximal superior cerebellar arteries. Normal basilar tip. -RIGHT POSTERIOR CEREBRAL ARTERY: The P1 segment is diminutive. Partial origin of the HYDRO STATION SUPERVISOR with robust opacification of the posterior communicating artery. Normal opacification of the distal HYDRO STATION SUPERVISOR segments. -LEFT POSTERIOR CEREBRAL ARTERY: Normal P1 segment. Normal opacification of the distal HYDRO STATION SUPERVISOR segments. -POSTERIOR COMMUNICATING ARTERIES: The left is dominant. The right is diminutive. Normal opacification of the superior sagittal, straight, transverse, and sigmoid sinuses. No venous thrombosis. No space-occupying hemorrhage or definite evolving infarct. CT/CT angio head neck IMPRESSION: NONCONTRAST HEAD CT: 1. No acute intracranial abnormality. CTA NECK: 1. No evidence of major arterial vascular stenosis, occlusion, or dissection. CTA HEAD: 1. No evidence of major arterial vascular occlusion, stenosis, dissection, or aneurysm. 2. Patent major cortical and dural venous sinuses. Electronically signed by: Jose Palacios MD 11/23/2024 12:14 PM EDT Dictated By: Jose Palacios MD Signed By: <Electronically signed by Jose Palacios MD in OV> 11/23/24 1214 DD/ 1124 TD/TT: 11/23/24 1153 Commercial Construction Estimator: [facility] External Provider IMG CT PROCEDURES Final Result * High Sensitivity Troponin I (11/23/2024 9:08 AM EDT) [facility] TROPONIN I HIGH SENSITIVITY <2.7 <3.5 - 17.0 ng/L [facility] Comment:The [place] high sens itivity Troponin-I results should beused in conjunction with other diagnostic information suchas ECG, clinical observations and information, and patientsymptoms to aid in the diagnosis of VT. 11/23/2024 9:08 AM EDT 11/23/2024 9:11 AM EDT us Generic External Data Provider LAB BLOOD ORDERAB LES Final Result [facility] [address] [place] [phone] * CBC auto differential (11/23/2024 9:08 AM EDT) Only the most recent of2 resultswithin the time period is included. [facility] White Blood Count 7.5 4.8 - 10.8 X10*3/uL [facility] Red Blood Count 4.70 4.20 - 5.50 X10*6/uL [facility] Hemoglobin 14.3 12.0 - 16.0 g/dl [facility] Hematocrit 44.1 37.0 - 47.0 % [facility] Mean Corpuscular Volume 93.8 80.0 - 98.0 fL [facility] Mean Corpuscular Hemoglobin 30.4 27.0 - 33.0 pg [facility] Mean Corpuscular HGB Conc 32.4 31.0 - 35.0 g/dl [facility] Red Cell Distribution Width 13.6 11.0 - 16.0 % [facility] Platelet Count 161 160 - 400 X10*3/uL [facility] Mean Platelet Volume 11.1 9.4 - 12.3 fL [facility] Neutrophils Percent Auto 72.9 45 - 73 % [facility] Imm Gran Pct Auto 0.4 0.0 - 0.4 % [facility] Lymphocytes Percent Auto 20.9 20 - 40 % [facility] Monocytes Percent Auto 5.0 2 - 11 % [facility] Eosinophils Percent Auto 0.5 0 - 4 % [facility] Basophils Percent Auto 0.3 0 - 2 % [facility] NRBC Pct Auto 0.0 0.0 - 0.2 /100WBC [facility] Neutrophils Absolute Auto 5.4 2.0 - 8.3 x10*3/uL [facility] Imm Gran Abs Auto 0.03 0.00 - 0.03 X10*3/uL [facility] Lymphocytes Absolute Auto 1.6 1.2 - 4.9 X10*3/uL [facility] Monocytes Absolute Auto 0.4 0.1 - 1.2 X10*3/uL [facility] Eosinophils Absolute Auto 0.0 0.0 - 0.4 X10*3/uL [facility] Basophils Absolute Auto 0.0 0.0 - 0.2 X10*3/uL [facility] NRBC Abs Auto 0.000 0.0 - 0.012 X10*3/uL [facility] 11/23/2024 9:08 AM EDT 11/23/2024 9:11 AM EDT us Generic External Data Provider LAB BLOOD ORDERAB LES Final Result [facility] [address] [place] [phone] * (ABNORMAL) Comprehensive Metabolic Panel (11/23/2024 9:08 AM EDT) Only the most recent of2 resultswithin the time period is included. Sodium 140 135 - 145 mmol/L [facility] Potassium 3.9 3.3 - 5.1 mmol/L [facility] Chloride 109(H) 96 - 108 mmol/L [facility] Carbon Dioxide 22 22 - 29 mmol/L [facility] Anion Gap 13 12 - 20 [facility] Urea Nitrogen (BUN) 15 9 - 16 mg/dL [facility] Creatinine, Serum 0.73 0.5 - 1.4 mg/dL [facility] Creatinine Clr Calc Pharmacy 89.5 [facility] Comment:Provided height and weight: 149.86 cm,96.162 kg.eGFR (calculated from the MDRD study equation) and eCrCl(calculated from the Cockcroft-Gault equation) are based ondifferent parameters and may not yield comparable results.If eCrCl result is absurd, please check patient'sheight/weight. Estimated Glomerular Filt Rate >60 [facility] Comment:Chronic Kidney Disea se: Estimated GFR < 60 mL/min/1.86k3Smxjyj Kidney Disease: Estimated GFR < 15 mL/min/1.73m2 Glucose 89 60 - 115 mg/dL [facility] Calcium 9.2 8.4 - 10.2 mg/dL [facility] Bilirubin, Total 0.3 0.0 - 1.0 mg/dL [facility] Aspartate Amino Transferase 44(H) 5 - 31 U/L [facility] Alanine Aminotransferase 43(H) 0 - 31 U/L [facility] Total Protein 8.1(H) 6.5 - 8.0 g/dL [facility] Albumin Level 4.4 3.5 - 5.0 g/dL [facility] Alkaline Phosphatase 74 39 - 117 U/L [facility] 11/23/2024 9:08 AM EDT 11/23/2024 9:11 AM EDT us Generic External Data Provider LAB BLOOD ORDERAB LES Final Result [facility] [address], [place] [phone] * XR Lumbar Spine Complete 4+ Views (10/08/2024 10:52 AM EST) Anatomical Region Laterality Modality Spine, L-spine Radiographic Jeanine ging 10/08/2024 10:5 2 AM EST Narrative 10/08/2024 11:43 AM EST ?[facility] [place] [facility] ?[address] ?[place] [address] ?XRay Report ? Signed ? Patient: Thompson Durán,Jocelin ?M ?? R#: [id number] ? : 1970 ?Acct:[id number] ? Age/Sex: 54 / F ?ADM Date: 10/08/24 ? Loc: HO.HHCX ? Attending Dr: Blank Gage ULTRASOUND COORDINATOR ? Ordering Physician: Blank Gage ?? Date of Service: 10/08/24 ?? Procedure(s): XR lumbar spine 4V min ?? Accession Number(s): [id number] ? cc: Blank Gage ? EXAMINATION: ?? [...] DD/ 1052 ? TD/TT: 10/08/24 1100 ? Commercial Construction Estimator: ? Procedure Note Syed, Image - 10/08/2024 [facility] [address] [place] [address] XRay Report Signed Patient: Jo Auguste R#: [id number] : 1970Acct:[id number] Age/Sex: 54 / FADM Date: 10/08/24 Loc: HO.CX Attending Dr: Blank Gage ULTRASOUND COORDINATOR Ordering Physician: Blank Gage Date of Service: 10/08/24 Procedure(s): XR lumbar spine 4V min Accession Number(s): [id number] cc: Blank Gage EXAMINATION: XR LUMBOSACRAL SPINE [...] 10/08/24 1140 DD/ 1052 TD/TT: 10/08/24 1100 Commercial Construction Estimator: Blank Gage TOP FLAVOR ATTENDANT IMG XR PROCEDURES Final R esult * POCT Glucose (09/04/2024 9:24 AM EST) Glucose Blood, POC 160 60 - 200 mg/dL QC Media Lot # [id number] Lot# Expiration Date ,808,413 Blood Capillary blood specimen / Unknown 09/04/2024 9:[address] [facility] Blank [facility] POINT OF CARE TEST ENTER/ EDIT ORDERABLES Final Result * Albumin, Random Urine W/Creatinine (06/12/2024 11:40 AM EDT) Creatinine, Urine 195.62 mg/dL [facility] Microalbumin Urine 41.0 mg/L [facility] Microalbum Creatinine Ratio Ur 20.9 <30 ug/mg cr [facility] Comment:Albumin/Creatinine R atio Reference Ranges: Normal: < 30 ug/mg creatinine Microalbuminuria: 30 - 300 ug/mg creatinineClinical Albuminuria: > 300 ug/mg creatinine Urine (Urine, Random) 06/12/2024 11:40 AM EDT 06/12/2024 1:[address] [facility] Wendy Vance MD LAB URINE ORDERAB LES Final Result Performing Organization Address [facility] Co de Phone Number [facility] [address] [place] [phone] * Hepatitis C Antibody with Reflex to HCV, RNA, Quantitative, Real-Time PCR (06/12/2024 11:39 AM EDT) Hepatitis C Antibody Nonreactive Nonreactive [facility] Comment:Antibodies to HCV no t detected; does not exclude early acuteHCV infection. Blood Venous blood specimen / Unknown 06/12/2024 11:39 AM EDT 06/12/2024 1:[address] [facility] Wendy Vance MD LAB BLOOD ORDERAB LES Final Result Performing Organization Address [facility] Co de Phone Number [facility] [address] [place] [phone] * HIV-1/2 Antigen and Antibodies, Fourth Generation, with Reflexes (06/12/2024 11:39 AM EDT) HIV AB/AG Nonreactive Nonreactive [facility] Comment:HIV-1 p24 Ag and/or HIV-1/HIV-2 Ab not detected.A test result that is nonreactive does not exclude thepossibility of exposure to or infection with HIV-1 and/orHIV-2. Nonreactive results in this assay for individualswith prior exposure to HIV-1 and/or HIV-2 may be due toantigen and antibody levels that are below the limit ofdetection of this assay.The Genapsys HIV Ag/Ab Combo assay result andsupplemental assay results should be interpreted inconjunction with the patient's clinical presentation,history and other laboratory results. If the results areinconsistent with clinical evidence, additional testing issuggested to confirm the result. Blood Venous blood specimen / Unknown 06/12/2024 11:39 AM EDT 06/12/2024 1:19 PM EDT us Wendy Vance MD LAB BLOOD ORDERAB LES Final Result [facility] [address] [place] [phone] * Hemoglobin A1c (06/12/2024 11:39 AM EDT) Hemoglobin A1c 5.7 <6.0 % [facility] Comment:Hemoglobin A1C Refer ence Range Adults: 4.8 - 6.0 % Non diabetic: < 6.0 % Goal: < 7.0 %Additional Action Suggested: > 8.0 %Note: Hemoglobin A1c results are invalid for patients with abnormal amounts of HbF. Blood transfusions may impact the HbA1c concentration in the patient sample. Estimated Average Glucose 117 mg/dL [facility] Comment:eAG = Estimated ave rage glucose which is %A1C expressed asaverage glucose, using the formula of the N5H-HysvwgoIulhhmx Glucose study (ADAG), Diabetes Care, Vol.31,#8,2007 Blood Venous blood specimen / Unknown 06/12/2024 11:39 AM EDT 06/12/2024 1:19 PM EDT us Wendy Vance MD LAB BLOOD ORDERAB LES Final Result Performing Organization Address [facility]/ZIP Co de Phone Number [facility] [address] [place] [phone] * (ABNORMAL) Lipid Panel, Standard (06/12/2024 11:39 AM EDT) Triglycerides 113 <150 mg/dL [facility] Comment:Desirable Triglyceri de: less than 150 mg/dLBorderline High Triglyceride 150-199 mg/dLHigh Triglyceride: 200-499 mg/dLVery High Triglyceride: greater than or equal to 5OO mg/dL Cholesterol 232(H) <200 mg/dL [facility] Comment:Desirable Cholestero l: less than 200 mg/dLBorderline High Cholesterol: 200-239 mg/dLHigh Cholesterol: greater than 239 mg/dL LDL Cholesterol Calculated 155(H) <100 mg/dL [facility] Comment:Desirable LDL: less than 100 mg/dLNear [...] AM EDT 06/12/2024 1:19 PM EDT Wendy Vanec MD LAB BLOOD ORDERAB LES Final Result Performing Organization Address City/[facility]/ZIP Co de Phone Number [facility] [address] [place] [phone] * BI Mammogram Screening Tomosynthesis Bilateral (02/27/2024 11:03 AM EDT) Anatomical Region Laterality Modality Breast Bilateral Mammography 02/27/2024 11:0 3 AM EDT Narrative 03/23/2024 10:37 PM EDT ? [facility] [place] ? [address] ?[place], [place] [address] ? Mammography Report ? Signed ? Patient: Jocelin Auguste ?M ?? R#: [id number] ? : 1970 ?Acct:[id number] ? Age/Sex: 53 / F ?ADM Date: 02/27/24 ? Loc: HO.MAMMO ? Attending Dr: Ronni Bautista MD ? Ordering Physician: Ronni Bautista MD ?Results: 1Negativ ?? e ? Date of Service: 02/27/24 ?Follow Up: 1 Year From Orig ?? inal Mammogram ? Procedure(s): MM tomosynthesis screening BI ?? Accession Number(s): [id number] ? cc: Wendy Pang MD; Ronni Bautista [...] by Lexie Silva MD in OV> ? 03/23/243 ? DD/ 1103 ? TD/TT: ? Commercial Construction Estimator: ? Procedure Note Syed, Image - 03/23/2024 [place] [facility] [address] [place], [place] [address] Mammography Report Signed Patient: Jo Auguste R#: [id number] : 1970Acct:[id number] Age/Sex: 53 / FADM Date: 02/27/24 Loc: SUNITHA Attending Dr: Ronni Bautista MD Ordering Physician: Ronni Bautista MDResults: 1Negativ e Date of Service: 02/27/24Follow Up: 1 Year From Orig inal Mammogram Procedure(s): MM tomosynthesis screening BI Accession Number(s): [id number] cc: Wendy Pang MD; Ronni Bautista MD [...] MD in OV> 03/23/242232 DD/ 1103 TD/TT: Commercial Construction Estimator: [facility] External Provider IMG BI PROCEDURES Final [...] Most Recently Relevant to Health Maintenance Insurance [employer] C3 Care Teams Cloth Inspector Relationship Specialty Start Date End Date Wendy Pang MD [address] [place] [phone] PCP - General Internal Medicine 02/23/23
--- OUTSIDE RECORDS SUMMARY | 2024-12-01 11:34 | XMS_ITS | Encounter Summary ---
Author Organization [employer] Address [address] [facility] 7t [place] [address] Care Team Providers Care Lens Grinder And Polisher Name Role Phone Wendy Pang MD Primary Care Pro vider Encounter Details Date Type Department Care Team (Late st Contact Info) Description 12/01/2024 Orders Only [facility] [address] [place], [place] [phone] Lana Obrien NP [address] [place], [place] [phone] Social History Tobacco Use Types Packs/Day Years [...] Upcoming Encounters Date Type Department Care Team ([facility] st Contact Info) Description 12/17/2024 10:00 AM EDT Medication Management [address] [address] 01/13/2025 11:30 AM EDT Office Visit [address] [address] Wendy Pang MD [address] [place] [address] [phone] documented as of this encounter Procedures Procedure Name Priority Date/Time Associated Diagnosis Comments XR CERVICAL SPINE 5V Routine 12/01/2024 10:01 AM EDT documented in this encounter Results * XR CERVICAL SPINE 5V (12/01/2024 10:01 AM EDT) Anatomical Region Laterality Modality Abdomen Radiographic Jeanine ging 12/01/2024 10:0 1 AM EDT Narrative 12/01/2024 10:59 AM EDT ?[facility] ?[address] ?[place] [address] ?XRay Report ? Signed ? Patient: Jocelin Auguste ?M ?? R#: [id number] ? : 1970 ?Acct:[id number] ? Age/Sex: 54 / F ?ADM Date: 04/15/25 ? Loc: HO.HHCX ? Attending Dr: Lana Obrien PRINCIPAL CONSULTANT ? Ordering Physician: Lana Obrien PRINCIPAL CONSULTANT ?? Date of Service: 12/01/24 ?? Procedure(s): XR cervical spine 5V ?? Accession Number(s): [id number] ? cc: Lana Obrien PRINCIPAL CONSULTANT ? EXAMINATION: ?? XR CERVICAL SPINE ? [...] DD/ 1001 ? TD/TT: 12/01/24 1035 ? Software Programmer: ? Procedure Note Syed, Image - 12/01/2024 [place] [address] XRay Report Signed Patient: Jo Auguste R#: [id number] : 1970Acct:[id number] Age/Sex: 54 / FADM Date: 12/01/24 Loc: HO.HHCX Attending Dr: Lana Obrien PRINCIPAL CONSULTANT Ordering Physician: Lana Obrien NP Date of Service: 12/01/24 Procedure(s): XR cervical spine 5V Accession Number(s): [id number] cc: Lana Obrien PRINCIPAL CONSULTANT EXAMINATION: XR CERVICAL SPINE CLINICAL INFORMATION: PAIN [...] Jero Nickerson MD 12/01/2024 10:56 AM EDT RP Dictated By: Jero Avilez MD Signed By: <Electronically signed by Jero Grimes MDin OV> 12/01/24 1056 DD/ 1001 TD/TT: 12/01/24 1035 Software Programmer: us Lana Obrien PRINCIPAL CONSULTANT IMG XR PROCEDURES Final Result documented in this encounter Visit Diagnoses Not on filedocumented in this encounter Additional Health Concerns Assessment Noted Time PHQ-9 Depression Total Score: 17 025 9:06 AM EDT documented as of this encounter Care Teams Lens Grinder And Polisher Relationship Specialty Start Date End Date Wendy Pang MD [address] [place] [phone] PCP - General Internal Medicine 02/23/23 documented as of this encounter
--- OUTSIDE RECORDS SUMMARY | 2024-12-01 11:34 | XMS_ITS ---
Author Organization [facility] enter Address [address] [place] [address] Care Team Providers Care Gui Developer Name Role Phone Michael Muller Primary Care Provider [phone] Allergies No Known Allergies REASON FOR [...] Problem Status W/U Status Risk Notes Problem [id number] Cervicalgia (M54.2) Active confirmed Problem [id number] History of sleep apnea (Z86.69) Active confirmed Problem 352087365 History of asthma (Z87.09) Active confirmed Vital [...] Location Date Provider Diagnosis 401-Internal Medicine [address] [place] [phone] 08/06/2023 Michael Ruiz Cervicalgia M54.2 ; History [...] MALIHA RUDOLPH LilliamPaula B:1970 (53 yo F)Acc No.[id number]:08/06/2023 Progress Note Patient:?Jocelin MACKEY Provider:?Michael Muller MD :1970???Age:53 Y???Sex:Female D ate:08/06/2023 Address:[address] [place] [address], [place] [address] Check In:10:28 AM ESTCheck O ut:11:27 AM [...] a history of sleep apnea diagnosed in [place]. She wasn't stephen to get a CPAP [...] * Images: Billing Information: * Visit Code:? 18950 Established Visit - Level 3 - 15min. * Procedure Codes:? * Sign off status: Completed true * Provider:?Michael Muller MD Date:? 023 Generated for Printi ng/Fatoddg/eTransmitting on:?12/01/2024 11:34 AM EDT History and Physical Notes * [...] a history of sleep apnea diagnosed in [place]. She wasn't stephen to get a CPAP [...]
--- OUTSIDE RECORDS SUMMARY | 2024-12-01 11:34 | XMS_ITS | Encounter Summary ---
Author Organization [employer] Address [address] [facility] 7t [place] [address] Care Team Providers Care Narrow Gauge Brakeman Name Role Phone Wendy Pang MD Primary Care Pro vider Encounter Details Date Type Department Care Team (Late st Contact Info) Description 12/01/2024 11:15 AM EDT Office Visit [facility] [address] [place], [place] [phone] Tarka Magda, OD [address] [place] [address] Arrived Social History Tobacco Use Types Packs/Day Years [...] Description 12/17/2024 10:00 AM EDT Medication Management [address] [address] 01/13/2025 11:30 AM EDT Office Visit [facility] [address] [place] [phone] Wendy Pang MD [address] [place] [phone] documented as of this encounter Visit Diagnoses Not on filedocumented in this encounter Additional Health Concerns Assessment Noted Time PHQ-9 Depression Total Score: 17 025 9:06 AM EDT documented as of this encounter Care Teams Narrow Gauge Brakeman Relationship Specialty Start Date End Date Wendy Pang MD [address] [place] [phone] PCP - General Internal Medicine 02/23/23 documented as of this encounter
--- OUTSIDE RECORDS SUMMARY | 2024-12-01 11:34 | XMS_ITS | Encounter Summary ---
Author Organization [employer] Address [address] [facility] 7t [place] [address] Care Team Providers Care Php Magento Developer Name Role Phone Wendy Pang MD Primary Care Pro vider Encounter Details Date Type Department Care Team (Latest Contact Info) Description 12/01/2024 Travel Social History Tobacco Use Types Packs/Day [...] with others, in a hotel, in a mcfp, living outside on the street, on a [...] Description 12/17/2024 10:00 AM EDT Medication Management [address] [address] 01/13/2025 11:30 AM EDT Office Visit [address] [address] Wendy Pang MD [address] [place] [phone] documented as of this encounter Visit Diagnoses Not on filedocumented in this encounter Additional Health Concerns Assessment Noted Time PHQ-9 Depression Total Score: 17 025 9:06 AM EDT documented as of this encounter Care Teams Php Magento Developer Relationship Specialty Start Date End Date Wendy Pang MD [address] [place] [phone] PCP - General Internal Medicine 02/23/23 documented as of this encounter
--- OUTSIDE RECORDS SUMMARY | 2024-12-01 11:34 | XMS_ITS | Encounter Summary ---
Author Organization [employer] Address 75 [facility] 7t [place] [address] Care Team Providers Care Veterinarian Name Role Phone Wendy Pang MD Primary Care Pro vider Encounter Details Date Type Department Care Team (Late st Contact Info) Description 11/27/2024 1:00 PM EDT Office Visit [facility] [address] [place], [place] [phone] Lana Obrien NP [address] [place], [place] [phone] Neck pain (Primary Dx); Unspecified Eustachian tube disorder, left ear; Primary hypertension Social History Tobacco Use Types [...] Mass Index 38.81 11/27/2024 1:04 PM EDT documented in this encounter Progress Notes * Lana Obrien NP - 11/27/2024 1:00 PM EDT Subjective: Jocelin Durán is a 54 y.o. female who presents to the office for a sick visit. Pt presents for head and neck pain Seen at [facility] 11/23/24 : summary of decision making Patient is a 54-year-old Gibraltarian speaking female with history of fibromyalgia, osteoarthritis, PTSD, anxiety, HLD, T2 DM, HTN, sleep apnea presenting to the emergency department with complaint of left sided head and neck pain since Saturday. Labs notable for no leukocytosis, no anemia, mild transaminitis. CTA head and neck notable for no evidence of ICH, occlusion, dissection, stenosis. My interpretation is in agreement with the radiologist's interpretation. Will discharge home with flexeril and lidocaine patches. === 11/23/24 === CTA HEAD NECK W AND WO CONTRAST - Impression - NONCONTRAST HEAD CT: 1. No acute intracranial abnormality. CTA NECK: 1. No evidence of major arterial vascular stenosis, occlusion, or dissection. CTA HEAD: 1. No evidence of major arterial vascular occlusion, stenosis, dissection, or aneurysm. 2. Patent major cortical and dural venous sinuses. Electronically signed by: Jose Palacios MD 11/23/2024 12:14 PM EDT RP HPI Pain in left shoulder to head and left ear bothering patient Same symptoms new symptoms is ear and when goes to sleep has to put pressure on the area which is tense, pain is the same no improvement took cyclobenaprine and did not help Awoke with pain on sat am also endorses head pain Left ear pain, started yesterday , some difficulty hearing Ibuprofen helps but pt has to take 2 Has an appointment with physical therapy upcoming Reports chronic ear pain and fullness for some time No fever No exudate Patient Active Problem List Diagnosis Primary hypertension Prediabetes Mixed hyperlipidemia Hypothyroidism Generalized anxiety disorder MACARIO (obstructive sleep apnea) Cervical disc disease Constipation Left foot pain Chronic pain of left knee PTSD (post-traumatic stress disorder) Homelessness Polyarthralgia Health care maintenance Transaminitis GERD (gastroesophageal reflux disease) Obesity Leg mass, left CTS (carpal tunnel syndrome) Intractable 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 aura and without status migrainosus Arthritis of knee Cervical paraspinous muscle spasm Cystitis LGSIL on Pap smear of cervix Postmenopausal bleeding Suprapubic pain Chronic low back pain Fibromyalgia Pulsatile tinnitus of both ears Neck pain Unspecified Eustachian tube disorder, left ear Review of Systems HENT: Positive for ear pain. Gastrointestinal: Negative for abdominal distention. Musculoskeletal: Positive for arthralgias, neck pain and neck stiffness. No Known Allergies Objective: Visit Vitals BP (!) 161/87 (BP Location: Left arm, Patient Position: Sitting, BP Cuff Size: Adult) Comment (BP Location): four arm Pulse 88 Temp 97.8 ??F (36.6 ??C) (Oral) Resp 18 Ht 5' 2 (1.575 m) Wt 212 lb 3.2 oz (96.3 kg) SpO2 98% BMI 38.81 kg/m?? OB Status Postmenopausal Smoking Status Never BSA 2.05 m?? Physical Exam Vitals reviewed. Constitutional: Appearance: She is obese. HENT: Right Ear: Tympanic membrane normal. Left Ear: Tympanic membrane normal. Mouth/Throat: Mouth: Mucous membranes are moist. Cardiovascular: Rate and Rhythm: Regular rhythm. Heart sounds: Normal heart sounds. Pulmonary: Breath sounds: Normal breath sounds. Musculoskeletal: Cervical back: Normal range of motion and neck supple. Tenderness present. Neurological: General: No focal deficit present. Psychiatric: Mood and Affect: Mood normal. Assessment/Plan: Problem List Items Addressed This Visit Primary hypertension Current Assessment & Plan Pt has not taken medications today, Reviewed elevated bp and pt will resume medication when at home Neck pain - Primary Current Assessment & Plan Pt with muscle spasm on left side of neck, no known trauma Minimal benefit from cyclobenzaprine Ct wnl Trial tizanidine Counseled regarding not exceeding dose of ibuprofen but may add acetaminophen Pt has upcoming physical therapy visit X-ray ordered Relevant Medications acetaminophen (Tylenol Extra Strength) 500 MG tablet tiZANidine (Zanaflex) 4 MG tablet Other Relevant Orders XR Cervical Spine 5 View Unspecified Eustachian tube disorder, left ear Current Assessment & Plan Will trial topical nasal steroid for eustachian tube dysfunction Monitor If pain increases Return to clinic Relevant Medications fluticasone (Flonase) 50 MCG/ACT nasal spray Current Outpatient Medications Medication Sig Dispense Refill acetaminophen (Tylenol Extra Strength) 500 MG tablet Take 2 tablets (1,000 mg) by mouth every 8 (eight) hours if needed for mild pain or moderate pain for up to 10 days. 30 tablet 0 atorvastatin (Lipitor) 20 MG tablet TAKE 1 TABLET BY MOUTH EVERY DAY 90 tablet 3 Blood Pressure kit 1 Device Once per day. 1 kit 0 cetirizine (ZyrTEC) 10 MG tablet Take 1 tablet (10 mg) by mouth Once per day. 30 tablet 1 DULoxetine (Cymbalta) [address] capsule Take 1 capsule (30 mg) by mouth 2 times daily. Do not crush or chew. 60 capsule 1 fluticasone (Flonase) 50 MCG/ACT nasal spray Administer 2 sprays into each nostril Once per day. Shake gently. Before first use, prime pump. After use, clean tip and replace cap. 16 g 2 ibuprofen 800 MG tablet 800 mg. levothyroxine (Tirosint) 88 MCG capsule Take 1 capsule (88 mcg) by mouth before breakfast. 30 capsule 2 losartan-hydroCHLOROthiazide (Hyzaar) 100-12.5 MG tablet TAKE 1 TABLET BY MOUTH EVERY DAY 90 tablet3 pregabalin (Lyrica) 75 MG capsule Take 1 capsule (75 mg) by mouth 2 times daily. 60 capsule 1 Tirzepatide-Weight Management (Zepbound) 7.5 MG/0.5ML solution auto-injector Inject 0.5 mL (7.5 mg)under the skin 1 (one) time per week. 2 mL 0 tiZANidine (Zanaflex) 4 MG tablet Take 1 tablet (4 mg) by mouth every 8 (eight) hours if needed formuscle spasms for up to 10 days. 30 tablet 0 traZODone (Desyrel) 50 MG tablet Take 0.5 tablets (25 mg) by mouth at bedtime. May take 1 tablet (50 mg) by mouth at bedtime as needed. 20 tablet 0 No current facility-administered medications for this visit. Visit Conducted in: [place]tarian Translation by: Provided by [facility] staff member Mimi AMADO , documented in this encounter Miscellaneous Notes * Assessment & Plan Note - Lana Obrien NP - 11/27/2024 1:30 PM EDTAssociated Problem(s): Neck pain Pt with muscle spasm on left side of neck, no known trauma Minimal benefit from cyclobenzaprine Ct wnl Trial tizanidine Counseled regarding not exceeding dose of ibuprofen but may add acetaminophen Pt has upcoming physical therapy visit X-ray ordered * Assessment & Plan Note - Lana Obrien NP - 11/27/2024 1:29 PM EDTAssociated Problem(s): Unspecified Eustachian tube disorder, left ear Will trial topical nasal steroid for eustachian tube dysfunction Monitor If pain increases Return to clinic * Assessment & Plan Note - Lana Obrien NP - 11/27/2024 1:28 PM EDTAssociated Problem(s): Primary hypertension Pt has not taken medications today, Reviewed elevated bp and pt will resume medication when at home documented in this encounter Plan of Treatment Upcoming Encounters Date Type Department Care Team (Late st Contact Info) Description 12/17/2024 10:00 AM EDT Medication Management [facility] MED[facility]INE [address] [place] [address] 01/13/2025 11:30 AM EDT Office Visit [facility] [address] [place] [phone] Wendy Pang MD [address] [place] [address] Scheduled Orders Name Type Priority Associated Diagnoses Orde r Schedule XR Cervical Spine 5 View Imaging Routine Neck pain Expected: 11/27/2024, Expires: 11/27/2025 documented as of this encounter Visit Diagnoses Diagnosis Neck pain- Primary Cervicalgia Unspecified Eustachian tube disorder, left ear Primary hypertension Unspecified essential hypertension documented in this encounter Additional Health Concerns Assessment Noted Time PHQ-9 Depression Total Score: 17 025 9:06 AM EDT documented as of this encounter Care Teams Veterinarian Relationship Specialty Start Date End Date Wendy Pang MD [address] [place] [phone] PCP - General Internal Medicine 02/23/23 documented as of this encounter
--- OUTSIDE RECORDS SUMMARY | 2024-12-01 11:34 | XMS_ITS | Encounter Summary ---
Author Organization [employer] Address 75 [facility] 7t [place] [address] Care Team Providers Care Packager Machine Name Role Phone Wendy Pang MD Primary Care Pro vider Reason for Visit * Reason Comments Acupuncture Encounter Details Date Type Department Care Team ([facility] st Contact Info) Description 12/01/2024 10:15 AM EDT Office Visit [facility] [address] [place], [place] [phone] Karissa Joy MD [address] [place] [address] Generalized anxiety disorder (Primary Dx) Social History Tobacco Use Types Packs/Day Years [...] PM EDT documented as of this encounter Progress Notes * Karissa Joy MD - 12/01/2024 10:15 AM EDT Subjective Patient ID: Jocelin Durán is a 54 y.o. female who presents for Acupuncture. Jocelin is here for acupuncture treatment #1. She is interested in addressing stress and anxiety. She previously had acupuncture treatments for chronic pain, and got some pain relief from treatment. Review of Systems Psychiatric/Behavioral: The patient is nervous/anxious. Objective Physical Exam Constitutional: Appearance: Normal appearance. Skin: General: Skin is warm and dry. Neurological: Mental Status: She is alert and oriented to person, place, and time. Assessment/Plan Diagnoses and all orders for this visit: Generalized anxiety disorder Written consent obtained for ear acupuncture. Ears prepped with alcohol pad. Five ear points needled bilaterally: Sympathetic, Balderrama Men, Kidney, Liver and Lung. Treatment duration: 30 minutes. Good hemostasis. Patient tolerated well. Follow up weekly for repeat acupuncture treatments as desired. documented in this encounter Plan of Treatment Upcoming Encounters Date Type Department Care Team (Late st Contact Info) Description 12/17/2024 10:00 AM EDT Medication Management [address] [address] 01/13/2025 11:30 AM EDT Office Visit [facility] [address] [place] [address] Wendy Pang MD [address] [place] [address] documented as of this encounter Visit Diagnoses Diagnosis Generalized anxiety disorder- Primary documented in this encounter Additional Health Concerns Assessment Noted Time PHQ-9 Depression Total Score: 17 11/20/ 025 9:06 AM EDT documented as of this encounter Care Teams Packager Machine Relationship Specialty Start Date End Date Wendy Pang MD [address] [place] [address] [phone] PCP - General Internal Medicine 02/23/23 documented as of this encounter
--- OUTSIDE RECORDS SUMMARY | 2024-12-01 11:34 | XMS_ITS | Encounter Summary ---
Author Organization [employer] Address 75 [facility] 7t [place] [address] Care Team Providers Care Print Journalist Name Role Phone Wendy Pang MD Primary Care Pro vider Reason for Visit * Reason Onset Date Comments Durable Medical Equipment 11/25/2024 Encounter Details Date Type Department Care Team ([facility] st Contact Info) Description 11/25/2024 Telephone [facility] MEDICINE [address] [place] [address] Wendy Pang MD [address] [place] [address] Durable Medical Equipment Social History Tobacco Use Types Packs/Day Years [...] encounter Miscellaneous Notes * Telephone Encounter - Marissa Reed RN - 11/30/2024 10:21 AM EDT Tcx3 placed to pt regarding message below. No answer, voicemail box not set up; unable to leave message. RN will sent letter to address on file. Pt to F/U as needed. Business Analytics Intern called pt x2, no answer and not able to leave vm. If pt calls again, please ask whether brace needed is for left hand, right hand or both (bilateral). Thank you * Telephone Encounter - Natacha Medrano - 11/26/2024 1:32 PM EDT Business Analytics Intern called pt x2, no answer and not able to leave vm. If pt calls again, please ask whether brace needed is for left hand, right hand or both (bilateral). Thank you * Telephone Encounter - Murtaza Hairston - 11/25/2024 11:54 AM EDT Tc from pt returning call regarding prior message. Contact pt at [phone] * Telephone Encounter - Natacha Medrano - 11/25/2024 10:41 AM EDT Call to pt to confirm DME request for brace. No answer, not able to leave vm. Will call again latertoday. * Telephone Encounter - Natacha Medrano - 11/25/2024 10:41 AM EDT ----- Message from Wendy Vance MD sent at 11/24/2024 4:25 PM EDT ----- Please can you confirm w pt which hand or both? , I think were both but can not find where I documented that Thanks ----- Message ----- From: Natacha Medrano Sent: 11/24/2024 3:57 PM EDT To: Wendy Vance MD Hi Dr Yun, For the wrist brace, does the pt need left, right or bilateral? Thank you ----- Message ----- From: Guadalupe Grimes RN Sent: 11/21/2024 11:35 AM EDT To: Beverley Mo Specialist Green Team ----- Message ----- From: Wendy Vance MD Sent: 11/20/2024 10:00 AM EDT To: [facility] Green Team Nurses Please can you assist w wrist brace px for CTS, pt states is not sure how to obtain was told needs to have a measurement but she is confused Thanks documented in this encounter Plan of Treatment Upcoming Encounters Date Type Department Care Team (Late st Contact Info) Description 12/17/2024 10:00 AM EDT Medication Management [facility] MEDICINE [address] [place] [address] 01/13/2025 11:30 AM EDT Office Visit [facility] MEDICINE [address] [place] [address] [phone] Wendy Pang MD [address] [place] [address] documented as of this encounter Visit Diagnoses Not on filedocumented in this encounter Additional Health Concerns Assessment Noted Time PHQ-9 Depression Total Score: 17 11/20/ 025 9:06 AM EDT documented as of this encounter Care Teams Print Journalist Relationship Specialty Start Date End Date Wendy Pang MD [address] [place] [address] PCP - General Internal Medicine 02/23/23 documented as of this encounter
--- OUTSIDE RECORDS SUMMARY | 2024-12-01 11:35 | XMS_ITS | Encounter Summary ---
Author Organization [employer] Address 75 [facility] 7t [place] [address] Care Team Providers Care Honing Machine Operator Semiautomatic Name Role Phone Wendy Pang MD Primary Care Pro vider Reason for Visit * Reason Comments Med Refill Encounter Details Date Type Department Care Team (Late st Contact Info) Description 10/26/2024 Refill [facility] MEDICINE [address] [place], [place] [phone] Patria Pappas ANP [address] [place], [place] [phone] Social History Tobacco Use Types Packs/Day Years [...] 12/17/2024 10:00 AM EDT Medication Management [address] [address] 01/13/2025 11:30 AM EDT Office Visit [facility] MEDICINE [address] [place] [address] Wendy Pang MD [address] [place] [phone] documented as of this encounter Visit Diagnoses Not on filedocumented in this encounter Additional Health Concerns Assessment Noted Time PHQ-9 Depression Total Score: 10 024 1:15 PM EDT documented as of this encounter Care Teams Honing Machine Operator Semiautomatic Relationship Specialty Start Date End Date Wendy Pang MD [address] [place] [phone] PCP - General Internal Medicine 02/23/23 documented as of this encounter
--- OUTSIDE RECORDS SUMMARY | 2024-12-01 11:35 | XMS_ITS | Encounter Summary ---
Author Organization [employer] Address 75 [facility] 7t [place] [address] Care Team Providers Care Technical Agronomist Name Role Phone Wendy Pang MD Primary Care Pro vider Reason for Visit * Reason Onset Date Comments Nurse Triage 03/11/2023 Encounter Details Date Type Department Care Team ([facility] st Contact Info) Description 03/11/2023 Telephone [facility] MEDICINE [address] [place] [address] Wendy Pang MD [address] [place] [address] Nurse Triage Social History Tobacco Use Types [...] 03/14/2023 11:06 AM EDT Triage call with [employer] [place] [place]utter [place] [id number]. Pt was triaged 03/11/23 and advised to come to [facility] to be seen but, didn't go. Pt reports doesn't want to go to [facility] because, I have too many issues Carol only want my doctor . Pt is offered 300pm apt with Dr. Villegas today but, reports no transportation. Advised Pt has 04/18/23 apt for transfer to Dr. Jama Vance and Pt reports my friend said thereare many apts open with Dr. Yun earlier than that and I want to go 03/25. . Flat Lock Machine Operator looked at schedule for that day and no available apts for transfer Pt seen. Phone connection very poor. Call was dropped 3 times during this conversation. Advised Pt to come to [facility] today or tomorrow. Hours given opentill 4pm [...] still has severe pain. Please contact at [phone] * Telephone Encounter - Beryl Schuster RN - 03/11/2023 1:25 PM EDT Triage call with [employer] [place] [id number] Pt reports shoulder, neck, middle to low back pain. Pt reports left foot almost gave out and Pt almost fell so Pt has someone walk with her all the time. Pt has suffered loss of mother and other family problems causing the increase of the pain. Pt is not finding effective pain relief and wants to see provider. Advised to come to [facility] today to be seen and Pt agreed. [...] 48 Hours * Telephone Encounter - Vincent iLm - 03/11/2023 12:52 PM EDT Symptom: Shoulder Pain - Not From Injury Outcome: Schedule an urgent appointment (within 1 hour) or talk to a nurse or provider soon Reason: Severe pain now The caller accepted this outcome Please contact pt at [phone] Kiswahili Speaker documented in this encounter Plan of Treatment Upcoming Encounters Date Type Department Care Team (Late st Contact Info) Description 12/17/2024 10:00 AM EDT Medication Management [address] [address] 01/13/2025 11:30 AM EDT Office Visit [address] [address] Wendy Pang MD [address] [place] [phone] documented as of this encounter Visit Diagnoses Not on filedocumented in this encounter Care Teams Technical Agronomist Relationship Specialty Start Date End Date Wendy Pang MD [address] [place] [phone] PCP - General Internal Medicine 02/23/23 documented as of this encounter
--- OUTSIDE RECORDS SUMMARY | 2024-12-01 11:35 | XMS_ITS ---
Author Organization [facility] Address [address] [place] [address] Care Team Providers Care Box Blank Machine Operator Name Role Phone Michael Muller Primary Care [...] Location Date Provider Diagnosis 401-Internal Medicine [address] [place] [address] 10/08/2023 Michael Muller Sleep apnea, unspeci fied [...] * Carmen MACKEY B:1970 (54 yo F)Acc No.[id number]:10/08/2023 Progress Note Patient:?MALIHA GALDAMEZ Jocelin Provider:?Michael Muller MD :1970???Age:53 Y???Sex:Female D ate:10/08/2023 Address:[address] [place] [address] Subjective: * Chief Complaints: * ???1. 2 [...] Electronic signature of Cristina Muller MD on 12/01/2024 at 11:35 AM EDT Sign off status: Pending * Provider:?Michael Muller MD Date:? 024 Generated for Benitez santaan/Parminder/eTesausmitting on:?12/01/2024 11:35 AM EDT
--- OUTSIDE RECORDS SUMMARY | 2024-12-01 11:35 | XMS_ITS | Patient Health Record ---
Author Organization [facility] Address [address] [place] [address] Care Team Providers Care Automobile Assembly Supervisor Name Role Phone Michael Muller Primary Care [...] Problem Status W/U Status Risk Notes Problem 41743640 Cervicalgia (M54.2) Active confirmed Problem 79578575898216 Morbid (severe) obesity due to excess calories (E66.01) Active confirmed Problem 951111869 Acquired hypothyroidism (E03.9) Active confirmed Problem 88770017 Hyperlipidemia, unspecified hyperlipidemia type (E78.5) Active confirmed Problem 083321951 Type 2 diabetes mellitus without complication, without long-term current use of insulin (E11.9) Active confirmed Problem 21244818 Dysphagia, unspecified type (R13.10) Active confirmed Problem 026157023 Depression with anxiety (F41.8) Active confirmed Problem 58077473 Sleep apnea, unspecified type (G47.30) Active confirmed Problem 755717907 History of asthm a (Z87.09) Active confirmed Problem 779554700 Ear itch (L29.9) Active confirmed Problem 946177774 History of sleep apnea (Z86.69) Active confirmed Problem 064711038 Body mass index [BMI] 40.0-44.9, adult (Z68.41) [...] End Date NICOLETTE Lynch [address] [place], [place] [id number] [phone] [id number] Jocelin Talley Self - patient is the insured DENTAL Medicaid [place] [address] [place] [id number] Jocelin Talley Self - patient is the insured Medical (General) History Surgical History Surgery Date(Month/Year) c section x 3 bilat tubal Hospitalization History Reason Date(Month/Year) see surgical
--- OUTSIDE RECORDS SUMMARY | 2024-12-01 11:35 | XMS_ITS | Encounter Summary ---
Author Organization [employer] Address 75 [facility] 7t [place] [address] Care Team Providers Care Communications Supervisor Name Role Phone Wendy Martell MD Primary Care Provide r Wendy Pang MD Primary Care Pro vider Encounter Details Date Type Department Care Team (Late st Contact Info) Description 02/18/[address] [facility] MEDICINE [address] [place] [address] [phone] Jordana Jose CNM [address] [place] [address] [phone] Social History Tobacco Use Types Packs/Day Years [...] Description 12/17/2024 10:00 AM EDT Medication Management [facility] MED[facility] [address] [place] [address] [phone] 01/13/2025 11:30 AM EDT Office Visit [facility] MEDICINE [address] [place] [address] [phone] Wenyd Pang MD [address] [place] [address] [phone] documented as of this encounter Procedures Procedure Name Priority Date/Time Associated Diagnosis Comments COLPOSCOPY Routine 01/31/2023 12:00 AM EDT documented in this encounter Results * Colposcopy (01/31/2023 12:00 AM EDT) us Ronni Bautista MD IN CLINIC/BEDSIDE ORDERABLES Fin al Result [facility] [address] [place] [address] [phone] documented in this encounter Visit Diagnoses Not on filedocumented in this encounter Care Teams Communications Supervisor Relationship Specialty Start Date End Date Wendy Martell MD [address] [place] [address] PCP - General Internal Medicine 11/22/22 02/22/23 Wendy Pang MD [address] [place] [address] PCP - General Internal Medicine 02/23/23 documented as of this encounter
--- OUTSIDE RECORDS SUMMARY | 2024-12-01 11:35 | XMS_ITS | Encounter Summary ---
Author Organization [employer] Address [address] [facility] 7t [place] [address] Care Team Providers Care Bulldozer Mechanic Name Role Phone Wendy Pang MD Primary Care Pro vider Reason for Visit * Reason Onset Date Comments PT-1 08/04/2024 Encounter Details Date Type Department Care Team ([facility] st Contact Info) Description 08/04/2024 Telephone [facility] [address] [place] [address] Wendy Pang MD [address] [place] [address] PT-1 Social History Tobacco Use Types Packs/Day [...] Description 12/17/2024 10:00 AM EDT Medication Management [facility] [address] [place] [address] 01/13/2025 11:30 AM EDT Office Visit [facility] [address] [place] [address] Wendy Pang MD [address] [place] [address] documented as of this encounter Visit Diagnoses Not on filedocumented in this encounter Additional Health Concerns Assessment Noted Time PHQ-9 Depression Total Score: 10 024 1:15 PM EDT documented as of this encounter Care Teams Bulldozer Mechanic Relationship Specialty Start Date End Date Wendy Pang MD [address] [place] [phone] PCP - General Internal Medicine 02/23/23 documented as of this encounter
--- OUTSIDE RECORDS SUMMARY | 2024-12-01 11:35 | XMS_ITS | Encounter Summary ---
Author Organization [employer] Address [address] [facility] 7t [place] [address] Care Team Providers Care Chief Operations Officer Name Role Phone Wendy Pang MD Primary Care Pro vider Reason for Visit * Reason Onset Date Comments Durable Medical Equipment 06/23/2024 Prior Authorization 06/23/2024 Encounter Details Date Type Department Care Team ([facility] st Contact Info) Description 06/23/2024 Telephone [facility] [address] [place] [address] Wendy Pang MD [address] [place] [address] Durable Medical Equipment; Prior Authorization Social History [...] 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 Please contract pt at [phone]. (Barbadian Speaker) documented in this encounter Plan of Treatment Upcoming Encounters Date Type Department Care Team (Late st Contact Info) Description 12/17/2024 10:00 AM EDT Medication Management [facility] [address] [place] [address] 01/13/2025 11:30 AM EDT Office Visit [facility] [address] [place] [address] Wendy Pang MD [address] [place] [address] documented as of this encounter Visit Diagnoses Not on filedocumented in this encounter Additional Health Concerns Assessment Noted Time PHQ-9 Depression Total Score: 10 024 1:15 PM EDT documented as of this encounter Care Teams Chief Operations Officer Relationship Specialty Start Date End Date Wendy Pang MD [address] [place] [phone] PCP - General Internal Medicine 02/23/23 documented as of this encounter
--- OUTSIDE RECORDS SUMMARY | 2024-12-01 11:35 | XMS_ITS | Encounter Summary ---
Author Organization [employer] Address [address] [facility] 7t [place] [address] Care Team Providers Care Roofer Helper Vinyl Coating Name Role Phone Wendy Pang MD Primary Care Pro vider Reason for Visit * Reason Onset Date Comments Med Refill 07/13/2024 Encounter Details Date Type Department Care Team ([facility] st Contact Info) Description 07/13/2024 Telephone [facility]INE [address] [place] [address] Wendy Pang MD [address] [place] [address] Med Refill Social History Tobacco Use Types [...] 11:39 AM EST Medication was sent to [facility] on 06/16/24 0.25 mg dose and 0.5 mg. * Telephone Encounter - Chad Kim - 07/13/2024 11:18 AM EST TC from pt requesting medication refill. Medications needing refill: Semaglutide-Weight Management (Wegovy) 0.25 MG/0.5ML solution auto-injector To be sent to: [facility] - [place], [place] - [address] [place] [address] documented in this encounter Plan of Treatment Upcoming Encounters Date Type Department Care Team (Late st Contact Info) Description 12/17/2024 10:00 AM EDT Medication Management [facility] [address] [place] [address] 01/13/2025 11:30 AM EDT Office Visit [address] [address] Wendy Pang MD [address] [place] [address] documented as of this encounter Visit Diagnoses Not on filedocumented in this encounter Additional Health Concerns Assessment Noted Time PHQ-9 Depression Total Score: 10 024 1:15 PM EDT documented as of this encounter Care Teams Roofer Helper Vinyl Coating Relationship Specialty Start Date End Date Wendy Pang MD [address] [place] [address] PCP - General Internal Medicine 02/23/23 documented as of this encounter
--- OUTSIDE RECORDS SUMMARY | 2024-12-01 11:35 | XMS_ITS ---
Author Organization [facility] enter Address [address] [place] [address] Care Team Providers Care White [employer] Buffer Name Role Phone Michael Muller Primary Care Provider Claudia Stafford [phone] REASON FOR VISIT FMX + Exam Encounters Encounter Location Date Provider Diagnosis 21-Dental [address] [facility] [place] [address] 09/10/2023 Claudia Stafford Plan Of Treatment No Information Progress Notes * MALIHA Carmen GALDAMEZ B:1970 (54 yo F)Acc No.[id number]:09/10/2023 Progress Note Patient:?MALIHA WILDERABAJocelin CORNEJO Provider:?Claudia Stafford DMD :1970???Age:53 Y???Sex:Female D ate:09/10/2023 Address:[address] [place] [address], [address] [phone] Pcp:Michael Muller Subjective: * Chief Complaints: * ???1. FMX + Exam. * Medical History:? * Implants:? Objective: * Vitals:? Assessment: Plan: * Treatment: * Images: Billing Information: * Visit Code:? * Procedure Codes:? * Electronic signature of Janet Stafford DMD on 12/01/2024 at 11:34 AM EDT Sign off status: Pending * Provider:Sona Stafford DMD Date:?08/20 Generated for [employer] santana/Faxing/eTransmitting on:?12/01/2024 11:34 AM EDT
--- OUTSIDE RECORDS SUMMARY | 2024-12-01 11:35 | XMS_ITS | Encounter Summary ---
Author Organization [employer] Address [address] [facility] 7t [place] [address] Care Team Providers Care Paper Guillotine Operator Name Role Phone Wendy Pang MD Primary Care Pro vider Encounter Details Date Type Department Care Team (Late st Contact Info) Description 09/29/2024 Orders Only [facility] MED[facility]INE [address] [place], [place] [phone] Provider, MD Mychal Social History Tobacco Use [...] Description 12/17/2024 10:00 AM EDT Medication Management [facility] MED[facility]INE [address] [place] [address] [phone] 01/13/2025 11:30 AM EDT Office Visit [facility] MED[facility]INE [address] [place] [phone] Wendy Pang MD [address] [place] [address] [phone] documented as of this encounter Procedures Procedure [...] documented as of this encounter Care Teams Paper Guillotine Operator Relationship Specialty Start Date End Date Wendy Pang MD [address] [place] [address] PCP - General Internal Medicine 02/23/23 documented as of this encounter
--- OUTSIDE RECORDS SUMMARY | 2024-12-01 11:35 | XMS_ITS | Encounter Summary ---
Author Organization [employer] Address [address] [facility] 7t [place] [address] Care Team Providers Care Supply Specialist Name Role Phone Wendy Pang MD Primary Care Pro vider Reason for Visit * Reason Onset Date Comments Accamodation Letter 06/25/2024 Encounter Details Date Type Department Care Team ([facility] st Contact Info) Description 06/25/2024 Telephone [facility] MED[facility]INE [address] [place] [address] Wendy Pang MD [address] [place] [address] Accamodation Letter Social History Tobacco Use Types [...] any questions you can contact pt at [phone]. (Kazakh Speaker) documented in this encounter Plan of Treatment Upcoming Encounters Date Type Department Care Team (Late st Contact Info) Description 12/17/2024 10:00 AM EDT Medication Management [facility]INE [address] [place] [address] 01/13/2025 11:30 AM EDT Office Visit [facility] [address] [place] [address] Wendy Pang MD [address] [place] [address] documented as of this encounter Visit Diagnoses Not on filedocumented in this encounter Additional Health Concerns Assessment Noted Time PHQ-9 Depression Total Score: 10 024 1:15 PM EDT documented as of this encounter Care Teams Supply Specialist Relationship Specialty Start Date End Date Wendy Pang MD [address] [place] [phone] PCP - General Internal Medicine 02/23/23 documented as of this encounter
--- OUTSIDE RECORDS SUMMARY | 2024-12-01 11:35 | XMS_ITS | Encounter Summary ---
Author Organization [employer] Address 75 [facility] 7t [place] [address] Care Team Providers Care Radiology Rn Name Role Phone Wendy Pang MD Primary Care Pro vider Encounter Details Date Type Department Care Team (Late st Contact Info) Description 08/13/2024 Telephone [facility] [address] [place], [place] [phone] Wendy Pang MD [address] [place] [address] Social History Tobacco Use Types Packs/Day Years [...] Description 12/17/2024 10:00 AM EDT Medication Management [facility] [address] [place] [address] 01/13/2025 11:30 AM EDT Office Visit [facility] [address] [place] [address] Wendy Pang MD [address] [place] [phone] documented as of this encounter Visit Diagnoses Not on filedocumented in this encounter Additional Health Concerns Assessment Noted Time PHQ-9 Depression Total Score: 10 024 1:15 PM EDT documented as of this encounter Care Teams Radiology Rn Relationship Specialty Start Date End Date Wendy Pang MD [address] [place] [address] PCP - General Internal Medicine 02/23/23 documented as of this encounter
== END 2024-12-01 10:00 | disposition home or self-care (01) ==
LOC: HO.HHCX 09:59
PROVIDERS: Visit Provider Nurse Practitioner Family
DX: M54.2 Cervicalgia (principal)
CPT/HCPCS: 72050

== ENCOUNTER → 2024-12-01 10:01 | Outpatient (BNV) | payer MEDICAID, SELFPAY | PROVIDERS: Visit Provider Radiology Diagnostic Radiology | DX: M54.2 Cervicalgia (principal) | CPT/HCPCS: 72050 ==

== ENCOUNTER 2025-01-07 11:21 | Outpatient (REF) | payer MEDICAID, SELFPAY ==
--- NOTE | ~2025-01-07 | CT_ITS ---
CLINICAL HISTORY: atypical lymph node present in sperior peripancreatic region CT abdomen and pelvis with contrast Comparison: US/AL/SR - US ABDOMEN LIMITED - 01/28/24 10:26 EDT Findings: The lung bases are clear. Approximately 1.8 cm lymph node is seen in the krishna hepatis just above the pancreas. There is no other adenopathy noted. The gallbladder and solid organs are unremarkable. Postoperative changes are seen in the sigmoid colon. There is colonic diverticulosis without evidence of diverticulitis. The rest of the GI tract is unremarkable. No acute fracture. IMPRESSION: Mildly enlarged krishna hepatis lymph node is likely reactive. No other adenopathy is noted. Consider obtaining a follow-up examination to demonstrate stability in 1 year. This document has been electronically signed by: Cody Casarez MD on 01/08/2025 10:50:39
--- OUTSIDE RECORDS SUMMARY | 2025-01-07 12:00 | XMS_ITS ---
Author Organization [facility] Address [address] [facility] [address] [place] [address] Care Team Providers Care Tinter Photograph Name Role Phone Michael Muller Primary Care Provider [phone] REASON FOR VISIT 2 Month F/u IP [...] Encounter Location Date Provider Diagnosis 401-Internal Medicine [address] [place] [phone] 10/08/2023 Michael Muller Sleep apnea, unspeci fied [...] * Carmen MACKEY B:1970 (54 yo F)Acc No.[id number]:10/08/2023 Progress Note Patient:?MALIHA GALDAMEZ Jocelin Provider:?Michael Muller MD :1970???Age:53 Y???Sex:Female D ate:10/08/2023 Address:[address] [place] [address] Subjective: * Chief Complaints: * ???1. 2 [...] Electronic signature of Cristina Muller MD on 01/07/2025 at 11:59 AM EDT Sign off status: Pending * Provider:?Michael Muller MD Date:? 024 Generated for Benitez santana/Parminder/eTransmitting on:?01/07/2025 11:59 AM EDT
--- OUTSIDE RECORDS SUMMARY | 2025-01-07 12:01 | XMS_ITS | Patient Health Record ---
Author Organization [facility] Address [address] [facility] 100 [place] [address] Care Team Providers Care Director Hris Name Role Phone Darvin Mullerardo Primary Care Provider Allergies No Known Allergies [...] Problem Status W/U Status Risk Notes Problem 22807482 Cervicalgia (M54.2) Active confirmed Problem 56107179828506 Morbid (severe) obesity due to excess calories (E66.01) Active confirmed Problem 525100053 Acquired hypothyroidism (E03.9) Active confirmed Problem 73183194 Hyperlipidemia, unspecified hyperlipidemia type (E78.5) Active confirmed Problem 965555437 Type 2 diabetes mellitus without complication, without long-term current use of insulin (E11.9) Active confirmed Problem 73831675 Dysphagia, unspecified type (R13.10) Active confirmed Problem 938300598 Depression with anxiety (F41.8) Active confirmed Problem 62273227 Sleep apnea, unspecified type (G47.30) Active confirmed Problem 561386128 History of asthm a (Z87.09) Active confirmed Problem 693755382 Ear itch (L29.9) Active confirmed Problem 868650132 History of sleep apnea (Z86.69) Active confirmed Problem 912731614 Body mass index [BMI] 40.0-44.9, adult (Z68.41) [...] End Date NICOLETTE Lynch [address] [place] [id number] Jocelin Talley Self - patient is the insured DENTAL Medicaid [place] [address] [place] [id number] Jocelin Talley Self - patient is the insured Medical (General) History Surgical History Surgery Date(Month/Year) c section x 3 bilat tubal Hospitalization History Reason Date(Month/Year) see surgical
--- OUTSIDE RECORDS SUMMARY | 2025-01-07 12:01 | XMS_ITS ---
Author Organization [facility] Address [address] [place] [address] Care Team Providers Care Tassel Making Machine Operator Name Role Phone Michael Muller Primary Care Provider Claudia Stafford [phone] REASON FOR VISIT FMX + Exam Encounters Encounter Location Date Provider Diagnosis 21-Dental [address] [facility] [place] [address] 09/10/2023 Claudia Stafford Plan Of Treatment No Information Progress Notes * MALIHA WILDERCarmen CARUSO B:1970 (54 yo F)Acc No.[id number]:09/10/2023 Progress Note Patient:?Jocelin MACKEY Provider:?Claudia Stafford DMD :1970???Age:53 Y???Sex:Female D ate:09/10/2023 Address:[address] [place] [address], [address] [address] Pcp:Michael Muller Subjective: * Chief Complaints: * ???1. FMX + Exam. * Medical History:? * Implants:? Objective: * Vitals:? Assessment: Plan: * Treatment: * Images: Billing Information: * Visit Code:? * Procedure Codes:? * Electronic signature of Janet Stafford DMD on 01/07/2025 at 12:00 PM EDT Sign off status: Pending * Provider:Sona Stafford DMD Date:?08/20 Generated for [employer] santana/Parminder/eTransmitting on:?01/07/2025 12:00 PM EDT
[2025-01-07] MEDS: iohexoL 350 MG/ML 100 ML INFUS..BTL IV (14:41)
[2025-01-07] MEDS: Barium Sulfate Oral (Vanilla) 450 ML ORAL.SUSP 900 ML PO (14:42)
[2025-01-07 15:20] LABS: Creatinine POC 0.7 mg/dL (0.5-1.4); GFR POC > 60
== END 2025-01-07 11:22 | disposition home or self-care (01) ==
LOC: HO.CT 11:21
PROVIDERS: PCP Student in an Organized Health Care Education/Training Program; Visit Provider Student in an Organized Health Care Education/Training Program
DX: R74.01 Elevation of levels of liver transaminase levels (principal); R59.9 Enlarged lymph nodes, unspecified
CPT/HCPCS: 74177; 82565; Q9967

== ENCOUNTER → 2025-01-07 11:24 | Outpatient (BNV) | payer MEDICAID, SELFPAY | PROVIDERS: PCP Student in an Organized Health Care Education/Training Program; Visit Provider Radiology Diagnostic Radiology | DX: R59.0 Localized enlarged lymph nodes (principal) | CPT/HCPCS: 74177 ==

== ENCOUNTER 2025-01-22 09:33 | Outpatient (AMB) | payer MEDICAID, SELFPAY ==
--- NOTE | 2025-01-22 09:49 | A.OFFVIS_ITS ---
Vital Signs 3 01/22/25 10:23 Height 5 ft 4 in Weight 202 lb BMI 34.7 BP 116/62 Blood Pressure Location Lt brachial Position Sitting Pulse 88 Pulse Source Pulse Oximeter Pulse Oximetry (%) 97 Oxygen Delivery Method Room Air Intake Visit Reasons: colonoscopy screening/GERD Intake Note: New patient for initial eval of GERD + initial colo screening. CC; C.O. GERD w/ dysphagia, constipation. Pt denies any additional sx or concerns at this time. No active tx. Pt receives medboxes from [facility]. Fur Tinter Required: Yes Fur Tinter Services: Fur Tinter Present Fur Tinter Name: Fortino [id number] Information Interpreted: clinical only Accompanied by: Self / Same As Patient Allergies No Known Allergies Allergy (Verified 01/22/25 10:02) HPI HPI colonoscopy screening/GERD: Details: 54-year-old female here for preprocedural meeting to discuss a screening colonoscopy, and for initial evaluation of GERD. She is referred by [facility]. PMX Asthma with cold weather Obesity-BMI 37 MACARIO Hypertension High cholesterol Hypothyroid Pre diabetes Cervical degenerative disc disease Constipation Chronic left knee pain GERD Migraines Carpal tunnel syndrome Chronic low back pain Fibromyalgia syndrome Tinnitus with Eustachian do disorder Depression/Anxiety/PTSD/history of homelessness Transaminitis/MENJIVAR Gallbladder sludge with borderline wall thickening -CT 01/2024 HPV * SURGICAL HISTORY Tubal ligation section x 3 * ALLERGIES: NKDA * [facility] LABS: Laboratory Tests 11/23/24 09:08 WBC 7.5 Hgb 14.3 Hct 44.1 Plt Count 161 Estimated GFR > 60 Total Bilirubin 0.3 AST 44 H ALT 43 H Alkaline Phosphatase 74 TODAY'S VISIT [place] #[id number], Arsalan # [id number] She has burning in her stomach at the GE jxn and HB that causes nausea and tightness in my stomach that causes fluid to come up. Everything she eats causes this. This has been a problem for years. The only medicine she tried was TUMS, and she had so many problems when she went to her PCP she forgot to mention this. The sx are greatly worse with salsa, dressings, red meat, ontiveros etc. She at times has dysphagia exp with rice and some meats that will pas but she has to drink a lot of water and It won't go up or down. She has severe CIC only moving her bowels q5 days. She is on Zepbound. She says I had a CT that found a mass in my stomach I explain that this was a lymph node in the area of the liver, this could point to GB problems among many other causes. There is no known FHX of similar sx. No known esophageal or stomach cancer known. Her sister had GB problems. She is s/p casandra. This is her first colonoscopy. She will need transportation as she lives on [facility]. She denies cardiac problems, she has asthma triggered by cold. She has had trouble achieving anesthesia at the dentist in the past, no othe rporblem. She has HPV, no other infectious diseases. There is no outright known CRC or polyps, she had one sister who had multiple health problems and she is unsure of all the diagnoses. Start omeprazole, print GERD trigger list, ROV 6 weeks. [facility] Medical History Pelvic pain Cervical high risk HPV (human papillomavirus) test positive Vaginal discharge Postop check Fibromyalgia Osteoarthritis Polyarthralgia Post traumatic stress disorder Constipation Cervical disc disease Generalized anxiety disorder Mixed hyperlipidemia Type 2 diabetes mellitus HTN (hypertension) Tachycardia Sleep apnea LGSIL on Pap smear of cervix Surgical History Hx of tubal ligation Hx of section Social History Alcohol intake: never Patient Tobacco Use Status: Never used Tobacco Female Reproductive History Menstrual Age of Menarche: 12 Review of Systems Const Denies fatigue, Denies fever(s), Denies night sweats, Denies poor appetite and Denies weight loss ENT Reports Normal hearing present, Denies dental pain, Denies dysphagia, Denies hearing loss, Denies mouth pain, Denies odynophagia, Denies throat swelling, Denies tongue swelling and Reports other (Dentition adequate) Card Reports palpitations Resp Reports no additional complaints GI Details: Denies abdominal pain, Denies melena, Denies bloating, Denies hematochezia, Denies constipation, Denies GI cramping, Denies dysphagia, Denies excessive flatus, Denies early satiety, Denies heartburn, Denies diarrhea, Denies nausea, Denies odynophagia, Denies vomiting and Denies hematemesis Skin/Breast Denies pruritus, Denies lesions, Denies rash and Denies jaundice Neuro Reports Normal hearing present and Denies Abnormal speech present Endo Denies fatigue and Reports palpitations Aller/Immun Denies throat swelling and Denies tongue swelling Physical Exam Vital Signs: Last Vital Signs Pulse 88 01/22/25 10:23 BP 116/62 01/22/25 10:23 Pulse Ox 97 01/22/25 10:23 Oxygen Delivery Method Room Air 01/22/25 10:23 BMI result Body Mass Index 34.7 Const General: cooperative, no acute distress, well developed and well groomed Nutritional Appearance: well nourished and obese Orientation/consciousness: oriented to person, oriented to place and oriented to time Limitations: language barrier HEENT Head: Yes normocephalic and Yes atraumatic Eyes General: appearance normal, both eyes and all related structures Pupils: Equal, round and reactive pupils present Neck Neck: Yes normal visual inspection and Yes no lymphadenopathy Thyroid: Thyroid normal Resp Effort & Inspection: normal respiratory effort and able to speak in complete sentences Auscultation: clear to auscultation bilaterally Cardio Rate: regular rate Rhythm: regular rhythm Heart sounds: Normal, physiologic split S2 sound present Peripheral pulses: radial pulses present and posterior tibial pulses present GI Inspection: No distended, Yes Abdominal panniculus present and Yes obesity Palpation (GI): Soft to palpation, Tenderness to palpation present (GI) in the epigastrum and in the RUQ, no guarding, not rigid and No hepatosplenomegaly present Percussion: Yes normal to percussion Auscultation: Hypoactive bowel sounds present Rectal Exam - Female: deferred Abdomen image: 2 1. surgical scars Skin General skin exam: no rashes or lesions noted, turgor normal, skin not dry, no jaundice, No spider nevi and no striae Rashes: no rashes Nails: normal Neuro General: oriented to person, oriented to place and oriented to time Cranial nerves: Yes Equal, round and reactive pupils present and Yes Normal hearing present Speech: No Abnormal speech present Extrem General: Yes normal to inspection, No clubbing, No cyanosis and No edema Psych Appearance: grossly normal and well kempt Mental Status: mental status grossly normal Speech and movement: Normal speech and movement present Affect: Blunted affect present Attitude: cooperative Thought process: Circumstantial thought process present and not confabulating Thought content: Normal thought content present Insight: Limited insight present (Psych) Judgement: Limited judgement present (Psych) Assessment & Plan Assessment & Plan (1) GERD (gastroesophageal reflux disease): Code(s): K21.9 - Gastro-esophageal reflux disease without esophagitis Category: Medical (2) Gallbladder sludge: Code(s): K82.8 - Other specified diseases of gallbladder Category: Medical (3) Upper abdominal pain: Code(s): R10.10 - Upper abdominal pain, unspecified Category: Medical (4) Pre-op examination: Code(s): Z01.818 - Encounter for other preprocedural examination Category: Medical (5) MENJIVAR (nonalcoholic steatohepatitis): Code(s): K75.81 - Nonalcoholic steatohepatitis (MENJIVAR) Category: Medical (6) Lymph node enlargement: Comment: On CT krishna hepatis lymph node 12/2024 Code(s): R59.9 - Enlarged lymph nodes, unspecified Category: Medical (7) Asthma: Code(s): J45.909 - Unspecified asthma, uncomplicated Category: Medical (8) Obesity (BMI 35.0-39.9 without comorbidity): Code(s): E66.9 - Obesity, unspecified Category: Medical (9) Sleep apnea: Comment: no CPAP Code(s): G47.30 - Sleep apnea, unspecified Category: Medical Plan [place] #[id number], Arsalan # [id number] She has burning in her stomach at the GE jxn and HB that causes nausea and tightness in my stomach that causes fluid to come up. Everything she eats causes this. This has been a problem for years. The only medicine she tried was TUMS, and she had so many problems when she went to her PCP she forgot to mention this. The sx are greatly worse with salsa, dressings, red meat, ontiveros etc. She at times has dysphagia exp with rice and some meats that will pas but she has to drink a lot of water and It won't go up or down. She has severe CIC only moving her bowels q5 days. She is on Zepbound. She says I had a CT that found a mass in my stomach I explain that this was a lymph node in the area of the liver, this could point to GB problems among many other causes. There is no known FHX of similar sx. No known esophageal or stomach cancer known. Her sister had GB problems. She is s/p casandra. This is her first colonoscopy. She will need transportation as she lives on [facility]. She denies cardiac problems, she has asthma triggered by cold. She has had trouble achieving anesthesia at the dentist in the past, no othe rporblem. She has HPV, no other infectious diseases. There is no outright known CRC or polyps, she had one sister who had multiple health problems and she is unsure of all the diagnoses. Start omeprazole, print GERD trigger list, ROV 6 weeks. Orders: Orders 2 H Pylori Breath Test Today K21.9 - Gastro-esophageal reflux disease without esophagitis FL barium swallow Today K82.8 - Other specified diseases of gallbladder, R10.10 - Upper abdominal pain, unspecified [place] hepatobiliary w pharm Today K82.8 - Other specified diseases of gallbladder, R10.10 - Upper abdominal pain, unspecified EGD/[place] Combo - GI Use Only Today K82.8 - Other specified diseases of gallbladder, R10.10 - Upper abdominal pain, unspecified Medications: New 2 peg 3350-electrolytes 236-22.74-6.74 -5.86 gram (Golytely) until fecal effluent is clear; do not exceed a total volume of 2,000 mL 240 mL PO Q10M 4,000 mL 0RF 1 day Z12.11 - Encounter for screening for malignant neoplasm of colon bisacodyl (Dulcolax (bisacodyl)) 10 mg (2 x 5 mg) PO BEDTIME 4 tabs 0RF 2 days omeprazole 40 mg PO DAILY 30 caps 6RF 30 days linaclotide (Linzess) Take first thing in the morning with a full glass of water. 145 mcg PO QAM 30 caps 3RF K58.1 - Irritable bowel syndrome with constipation Coding Level of Care Code New Pt Level 4 (88230) Diagnoses GERD (gastroesophageal reflux disease) K21.9 Gallbladder sludge K82.8 Upper abdominal pain R10.10 Pre-op examination Z01.818 MENJIVAR (nonalcoholic steatohepatitis) K75.81 Lymph node enlargement R59.9 Asthma J45.909 Obesity (BMI 35.0-39.9 without comorbidity) E66.9 Sleep apnea G47.30 Time Spent (min) 55
--- OUTSIDE RECORDS SUMMARY | 2025-01-22 10:08 | XMS_ITS | Clinical Summary ---
Author Organization [employer] Address [address] [facility] [address] [place] [address] Care Team Providers Care Instrument Engineer Name Role Phone Wnedy Pang MD Primary Care Pro vider Allergies [...] at bedtime as needed. 20 tablet 025 Active DULoxetine (Cymbalta) [address] capsuleIndicatio ns:PTSD (post-traumatic stress disorder) Take 1 capsule (30 mg) by mouth 2 times daily. Do not crush or chew. 60 capsule 1 025 Active fluticasone (Flonase) 50 MCG/ACT nasal sprayIndications :Unspecified Eustachian tube disorder, left ear Administer 2 sprays into each nostril Once per day. Shake gently. Before first use, prime pump. After use, clean tip and replace cap. 16 g 2 025 2025 Active polyvinyl alcohol (Liquifilm Tears) 1.4 % ophthalmic solutionIndicati ons:Dry eyes, bilateral Administer 1 drop into both eyes if needed for dry eyes. 15 mL 5 Active cetirizine (ZyrTEC) 10 MG tablet TAKE 1 TABLET BY MOUTH EVERY DAY 90 tablet Active pregabalin (Lyrica) 150 MG capsuleIndicatio ns:Polyarthralgi a Take 1 capsule (150 mg) by mouth 2 times daily. 60 capsule 2 025 2025 Active levothyroxine (Synthroid, Levoxyl) 88 MCG tablet TAKE 1 TABLET BY MOUTH EVERY MORNING BEFORE BREAKFAST 30 tablet Active Tirzepatide-Weig ht Management (Zepbound) 10 MG/0.5ML solution auto-injector Inject 0.5 mL (10 mg) as directed 1 (one) time per week. INJECT ONE PEN (=10 MG) SUBCUTANEOUSLY ONCE A WEEK 2 mL 025 2024 Active pregabalin (Lyrica) 75 MG capsuleIndicatio ns:Polyarthralgi a Take 1 capsule (75 mg) by mouth 2 times daily. 60 capsule 1 2024 Discontinued(R eorder (will not trigger notification to Pharmacy)) Tirzepatide-Weig ht Management (Zepbound) 7.5 MG/0.5ML solution auto-injector Inject 0.5 mL (7.5 mg) under the skin 1 (one) time per week. 2 mL 2024 Discontinued cetirizine (ZyrTEC) 10 MG tablet Take 1 tablet (10 mg) by mouth Once per day. 30 tablet 1 2024 Discontinued tiZANidine (Zanaflex) 4 MG tabletIndication s:Neck pain Take 1 tablet (4 mg) by mouth every 8 (eight) hours if needed for muscle spasms for up to 10 days. 30 tablet 025 2024 Discontinued(O ther) levothyroxine (Synthroid) 88 MCG tablet Take 1 tablet (88 mcg) by mouth before breakfast. 30 tablet 025 2024 Discontinued Tirzepatide-Weig ht Management (Zepbound) 10 MG/0.5ML solution auto-injector Inject 0.5 mL (10 mg) as directed 1 (one) time per week. INJECT ONE PEN (=10 MG) SUBCUTANEOUSLY ONCE A WEEK 2 mL 025 2024 Discontinued(R eorder (will not trigger notification to Pharmacy)) Active Problems Problem Noted Date Diagnosed Date Abnormal CT of the abdomen 01/13/2025 Neck pain 11/27/2024 Assessment & Plan (11/27/2024 [...] months may rtc sooner if sx worsen Cervical paraspinous muscle spasm 09/16/2024 Assessment & [...] of migraines, was receiving a medication from [place], not sure of the name Will start [...] (Eric Ruff) and has a therapist in [place] (agency unknown). Pt will continue current MH [...] (Eric Ruff) and has a therapist in [place] (agency unknown). Pt will continue current treatment [...] organization. Date Type Department Care Team Description 01/21/2025 10:30 AM EDT Telemedicine [facility] [address] [place] [phone] Mel Amezcua, Selene Hypothyroidism, unspecified type (Primary Dx); Primary hypertension; Mixed hyperlipidemia 01/21/2025 Refill [facility] [address] [facility] [place] [address] Wendy Pang MD 01/20/2025 Refill [facility] [address] [facility] [address] Wendy Pang MD 01/20/2025 Refill [facility] [address] [facility] [address] Wendy Pang MD 01/20/2025 Refill [facility] [address] [facility] [place] [address] Gladys Cee MD 01/15/2025 Telephone [facility] [address] [facility] [facility] [address] Wendy Pang MD Durable Medical Equipment 01/13/2025 11:30 AM EDT Office Visit [facility] [address] [address] Wendy Pang MD Hypothyroidism, unspecified type (Primary Dx); Polyarthralgia; Class 2 severe obesity due to excess calories with serious comorbidity and body mass index (BMI) of 39.0 to 39.9 in adult (CMS/HCC); Chronic pain of left knee; Primary hypertension; Pulsatile tinnitus of both ears; Health care maintenance; Generalized anxiety disorder; Arthritis of knee; Fibromyalgia; Neck pain; Bilateral carpal tunnel syndrome; Leg mass, left; Abnormal CT of the abdomen 01/13/2025 Travel 01/12/2025 Telephone [facility] [address] [facility] [address] Wendy Pang MD Chart Prep 01/12/2025 Refill [facility] [address] [facility] [place] [address] Wendy Pang MD 01/08/2025 Results Follow-Up [facility] [address] [facility] [place] [address] Abdomen Pelvis w/ Contrast 01/07/2025 Orders Only [facility] [address] [facility] [address] Wendy Pang MD 01/07/2025 Refill [facility] [address] [place] [address] Wendy Pang MD Type 2 diabetes mellitus without complication, without long-term current use of insulin ([facility]) 12/25/2024 3:30 PM EDT Office Visit [facility] OPTOMETRY [address] [place] [address] Henrry, Bryanna, OD Presbyopia (Primary Dx) 12/25/2024 Telephone [facility] [address] [place] [address] Wendy Pang MD Med Refill 12/25/2024 Telephone [facility] [address] [place] [address] Wendy Pang MD Medication Question 12/25/2024 Refill [facility] [address] [place] [address] Wendy Pang MD 12/18/2024 Orders Only [facility] [address] [place] [address] Wendy Pang MD Polyarthralgia (Primary Dx); Elevated C-reactive protein (CRP) 12/17/2024 Travel 12/15/2024 Patient Outreach [facility] [address] [place] [phone] Wendy Pang MD Care Coordination ([facility] outreach for SDOH PT-1 and food needs-referral completed /) 12/14/2024 Telephone [facility] [address] [place] [address] Wendy Pang MD pt1 12/09/2024 Telephone [facility] [address] [place] [address] Wendy Pang MD Med Refill 12/04/2024 Telephone [facility] [address] [place] [phone] Guadalupe Grimes, RN Durable Medical Equipment 12/04/2024 Telephone [facility] [address] [place] [address] Lana Obrien, MUCK BOSS Results 12/01/2024 11:15 AM EDT Office Visit [facility] OPTOMET[facility] [address] [place] [address] Taranastasiia, Magda, OD Dry eyes, bilateral (Primary Dx); Presbyopia; Eyelid twitch 12/01/2024 10:15 AM EDT Office Visit [facility] [address] [place] [address] Karissa Joy MD Generalized anxiety disorder (Primary Dx) 12/01/2024 Orders Only [facility] PEDIATRICS [address] [place] [address] Lana Obrien NP 12/01/2024 Travel 11/27/2024 1:00 PM EDT Office Visit [facility] [address] [place] [address] Lana Obrien NP Neck pain (Primary Dx); Unspecified Eustachian tube disorder, left ear; Primary hypertension 11/25/2024 Telephone [facility] [address] [place] [address] Wendy Pang MD Durable Medical Equipment 11/23/2024 Orders Only GENERIC EXTERNAL DATA DEPARTMENT Provider, Generic External Data 11/20/2024 9:30 AM EDT Office Visit [facility] [address] [place] [address] Wendy Pang MD MACARIO (obstructive sleep apnea) (Primary Dx); Polyarthralgia; Hypothyroidism, unspecified type; Dietary counseling; Exercise counseling; Primary hypertension; Class 2 severe obesity due to excess calories with serious comorbidity and body mass index (BMI) of 39.0 to 39.9 in adult (CMS/[facility]); Health care maintenance; Fibromyalgia; Pulsatile tinnitus of both ears 11/20/2024 Travel 11/10/2024 Telephone [facility] [address] [place] [address] Wendy Pang MD chart prep 10/30/2024 Population Health Risk Score [facility] ([facility] Department [address] [phone] Provider, Population Health Generic 10/29/2024 Refill [facility] [address] [place] [address] Wendy Pang MD 10/26/2024 Orders Only GENERIC EXTERNAL DATA DEPARTMENT Provider, Generic External Data 10/26/2024 Refill [facility] [address] [place] [address] Patria Pappas ANP from Last 3 Months Immunizations Immunization Administration Dates Next Due Influenza, seasonal, injectable, [...] What is your housing situation today? I have shanta moreno 01/13/[address] you li ve. Do you have problems with any of the following? None of the above 01/13/2025 Food Insecurity Answer Date Recorded Within the [...] Sign Reading Time Taken Comments Blood Pressure 130/86 01/13/2025 11:03 AM EDT Pulse 92 01/13/2025 11:03 AM EDT Temperature 36.6 ??C (97.8 ??F) 11/27/2024 1:04 PM ED T Respiratory Rate 14 01/13/2025 11:03 AM EDT Oxygen Saturation 95% 01/13/2025 11:03 AM EDT Inhaled Oxygen Concentration - - Weight 91.4 kg (201 lb 9.6 oz) 01/13/2025 11:03 AM EDT Height 157 cm (5' 1.81 ) 01/13/2025 11:03 AM EDT Body Mass Index 37.1 01/13/2025 11:03 AM EDT Plan of Treatment Upcoming Encounters Date Type Department Care Team (Late st Contact Info) Description 02/22/2025 10:30 AM EDT Nurse Only [facility] [address] [place] [address] [phone] 03/18/2025 11:30 AM EDT Office Visit [facility] [address] [place] [address] [phone] Wendy Pang MD [address] [place] [address] [phone] Health Maintenance Due Date Last Done Comments CT Colonography 1970 FIT DNA/Cologuard 1970 FIT 1970 FOBT 1970 Sigmoidoscopy 1970 Diabetes: Foot Exam 1980 Hepatitis B Vaccines (1 of 3 - 19+ 3-dose series) 1989 Pneumococcal Vaccine: 50+ Years (1 of 2 - PCV) 1989 Colonoscopy 01/09/2024 Colorectal Cancer Screening 01/09/2024 COVID-19 Vaccine ( season) 2024 Diabetes: Hemoglobin A1C 12/11/2024 06/12/2024, 12/17 Cervical Cancer Screening 02/10/2025 HPV/Cotest 02/10/2025 01/09/2024, 12/18, 12/12/2022 Pap Smear 02/10/2025 01/09/2024, 12/18, 12/12/2022 Mammogram 02/26/2025 02/27/2024, 06/0 12/2022, 01/21/2023 Depression Monitoring 05/22/2025 11/20/2024, 025 Diabetes: Urine Protein Screening 06/12/2025 06/12/2024 Lipid Panel 06/12/2025 06/12/2024 Alcohol/Substance Use Screening 11/20/2025 11/20/2024 Disability Screening 11/20/2025 11/20/2024 SDOH Screening 01/13/2026 01/13/2025 Tobacco Screening 01/13/2026 01/13/2025 Eye Exam 12/01/2026 12/01/2024, 11/17, 12/01/2024, Additional [...] patient's age to complete this topic Meningococcal B Vaccine Aged Out No l onger eligible based on patient's age to complete [...] Procedure Name Priority Date/Time Associated Diagnosis Comments CT ABDOMEN PELVIS W CONTRAST Routine 01/08/2025 10:50 AM EDT Transaminitis Enlarged lymph node POCT CREATININE GFR Routine 01/07/2025 1 1:33 AM EDT XR CERVICAL SPINE 5V Routine 12/01/2024 10:01 [...] AUTO DIFFERENTIAL Routine 10/26/2024 11:48 AM EDT ALBUMIN, RANDOM URINE W/CREATININE Routine 06/12/2024 11:40 [...] Recently Relevant to Health Maintenance Results * CT Abdomen Pelvis w/ Contrast (01/08/2025 10:50 AM EDT) Anatomical Region Laterality Modality Body, Pelvis, Abdomen Computed T omography 01/08/2025 10:5 0 AM EDT Narrative 01/08/2025 10:51 AM EDT ? [facility] ?[address] ?[place] [address] ? CT Scan Report ? Signed ? Patient: Jocelin Auguste ?M ?? R#: [id number] ? : 1970 ?Acct:[id number] ? Age/Sex: 54 / F ?ADM Date: 01/07/25 ? Loc: HO.CT ? Attending Dr: Wendy Vance MD ? Ordering Physician: Wendy Pang MD ?? Date of Service: 01/07/25 ?? Procedure(s): CT abdomen pelvis w IV con ?? Accession Number(s): [id number] ? cc: Wendy Pang MD ? Report Number: ?? [id number]: Total DLP = ??587.00 mGy-cm ? CLINICAL HISTORY: atypical lymph node present in sperior peripancreatic region ? CT abdomen and pelvis with contrast ? Comparison: US/MI/SR - US ABDOMEN LIMITED - 01/28/24 10:26 EDT ? Findings: ?? The lung bases are clear. ? Approximately 1.8 cm lymph node is seen in the krishna hepatis just above ?? the pancreas. ?? There is no other adenopathy noted. ?? The gallbladder and solid organs are unremarkable. ? Postoperative changes are seen in the sigmoid colon. ? There is colonic diverticulosis without evidence of diverticulitis. The ?? rest of the GI tract is unremarkable. ?? No acute fracture. ? IMPRESSION: ?? Mildly enlarged krishna hepatis lymph node is likely reactive. No other ?? adenopathy is noted. Consider obtaining a follow-up examination to ?? demonstrate stability in 1 year. ? This document has been electronically signed by: Cody Casarez MD on ?? 01/08/2025 10:50:39 ? Dictated By: ?Cody Casarez MD ? Signed By: ?<Electronically signed by Cody Casarez MD in OV> ? 01/08/25 1051 ? DD/ 1050 ? TD/TT: 01/08/25 1050 ? Engineer System Administrator: ? Procedure Note Donwandyter, Image - 01/08/[address] [place] [address] [address] Scan Report Signed Patient: Jo Auguste R#: [id number] : 1970Acct:[id number] Age/Sex: 54 / FADM Date: 01/07/25 Loc: HO.CT Attending Dr: Wendy Vance MD Ordering Physician: Wendy Pang MD Date of Service: 01/07/25 Procedure(s): CT abdomen pelvis w IV con Accession Number(s): [id number] cc: Wendy Pang MD Report Number: [id number]: Total DLP = 587.00 mGy-cm CLINICAL HISTORY: atypical lymph node present in sperior peripancreaticregion CT abdomen and pelvis with contrast Comparison: US/MI/SR - US ABDOMEN LIMITED - 01/28/24 10:26 EDT Findings: The lung bases are clear. Approximately 1.8 cm lymph node is seen in the krishna hepatis just above the pancreas. There is no other adenopathy noted. The gallbladder and solid organs are unremarkable. Postoperative changes are seen in the sigmoid colon. There is colonic diverticulosis without evidence of diverticulitis. The rest of the GI tract is unremarkable. No acute fracture. IMPRESSION: Mildly enlarged krishna hepatis lymph node is likely reactive. No other adenopathy is noted. Consider obtaining a follow-up examination to demonstrate stability in 1 year. This document has been electronically signed by: Cody Casarez MD on 01/08/2025 10:50:39 Dictated By: Cody Casarez MD Signed By: <Electronically signed by Cody Casarez MD in OV> 01/08/25 1051 DD/ 1050 TD/TT: 01/08/25 1050 Engineer System Administrator: us Wendy Vance MD IMG CT PROCEDURES Final Result * POCT Creatinine GFR (01/07/2025 11:33 AM EDT) POCT Creatinine 0.7 0.5 - 1.4 mg/dL [facility] GFR POC >60 [facility] Comment:Chronic Kidney Disea se: Estimated GFR < 60 mL/min/[id number] Kidney Disease: Estimated GFR < 15 mL/min/1.73m2 01/07/2025 11:3 3 AM EDT 01/07/2025 3:17 PM EDT Narrative [facility] - 01/07/2025 3:20 PM EDT [id number] us Wendy Vance MD LAB POINT OF CARE TEST DOCKED DEVICE ORDERABLES Final Result Performing Organization Address [facility] Co de Phone Number [facility] [address] [place] [phone] * XR CERVICAL SPINE 5V (12/01/2024 10:01 AM EDT) Anatomical Region Laterality Modality Abdomen Radiographic Jeanine ging 12/01/2024 10:0 1 AM EDT Narrative 12/01/2024 10:59 AM EDT ?[facility] ?[address] ?[place] [address] ?XRay Report ? Signed ? Patient: Jocelin Auguste ?M ?? R#: [id number] ? : 1970 ?Acct:[id number] ? Age/Sex: 54 / F ?ADM Date: 04/15/25 ? Loc: HO.HHCX ? Attending Dr: Lana Obrien MUCK BOSS ? Ordering Physician: aLna Obrien MUCK BOSS ?? Date of Service: 12/01/24 ?? Procedure(s): XR cervical spine 5V ?? Accession Number(s): [id number] ? cc: Lana Obrien NP ? EXAMINATION: ?? XR CERVICAL SPINE ? [...] DD/ 1001 ? TD/TT: 12/01/24 1035 ? Engineer System Administrator: ? Procedure Note Syed, Image - 12/01/2024 [place] [address] XRay Report Signed Patient: Jo Auguste R#: [id number] : 1970Acct:[id number] Age/Sex: 54 / FADM Date: 12/01/24 Loc: HO.HHCX Attending Dr: Lana Obrien MUCK BOSS Ordering Physician: Lana Obrien NP Date of Service: 12/01/24 Procedure(s): XR cervical spine 5V Accession Number(s): [id number] cc: Lana Obrien MUCK BOSS EXAMINATION: XR CERVICAL SPINE CLINICAL INFORMATION: PAIN [...] 12/01/24 1056 DD/ 1001 TD/TT: 12/01/24 1035 Engineer System Administrator: us Lana Obrien NP IMG XR PROCEDURES Final Result * CTA Head Neck w/ and w/o Contrast (11/23/2024 11:24 AM EDT) Anatomical Region Laterality Modality Head, Neck Computed Tomogra phy 11/23/2024 11:2 4 AM EDT Narrative 11/23/2024 12:17 PM EDT ? [facility] ?[address] ?[place] [address] ? CT Scan Report ? Signed ? Patient: Donna DuránJocelin ?M ?? R#: [id number] ? : 1970 ?Acct:[id number] ? Age/Sex: 54 / F ?ADM Date: 11/23/24 ? Loc: HO.ED ? Attending Dr: ? Ordering Physician: Amaya Liu MUCK BOSS ?? Date of Service: 11/23/24 ?? Procedure(s): CT angio head neck ?? Accession Number(s): [id number] ? cc: [facility]; Amaya Liu NP ? Report Number: ?? [id number]: Total DLP = 1352.00 mGy-cm ?? EXAMINATION: [...] The data was ?? processed at the magnetic resonance technologist's workstation for generation of MIP ?? [...] is diminutive. Partial ?? origin of the DEBIT AGENT with robust opacification of the posterior ?? communicating artery. Normal opacification of the distal DEBIT AGENT segments. ?? -LEFT POSTERIOR CEREBRAL ARTERY: Normal P1 segment. Normal ?? opacification of the distal DEBIT AGENT segments. ?? -POSTERIOR COMMUNICATING ARTERIES: The left [...] DD/ 1124 ? TD/TT: 11/23/24 1153 ? Engineer System Administrator: ? Procedure Note Syed, Carline - 11/23/[address] [place] [address] [address] Scan Report Signed Patient: Jo Auguste R#: [id number] : 1970Acct:[id number] Age/Sex: 54 / FADM Date: 11/23/24 Loc: HO.ED Attending Dr: Ordering Physician: Amaya Liu NP Date of Service: 11/23/24 Procedure(s): CT angio head neck Accession Number(s): [id number] cc: [facility]; Amaya Liu NP Report Number: [id number]: Total DLP = 1352.00 mGy-cm EXAMINATION: CT [...] vertex. The data was processed at the magnetic resonance technologist's workstation for generation of MIP sequences. [...] segment is diminutive. Partial origin of the DEBIT AGENT with robust opacification of the posterior communicating artery. Normal opacification of the distal DEBIT AGENT segments. -LEFT POSTERIOR CEREBRAL ARTERY: Normal P1 segment. Normal opacification of the distal DEBIT AGENT segments. -POSTERIOR COMMUNICATING ARTERIES: The left is [...] 11/23/24 1214 DD/ 1124 TD/TT: 11/23/24 1153 Engineer System Administrator: [facility] External Provider IMG CT PROCEDURES Final Result * High Sensitivity Troponin I (11/23/2024 9:08 AM EDT) TROPONIN I HIGH SENSITIVITY <2.7 <3.5 - 17.0 ng/L [facility] Comment:The [place] high sens itivity Troponin-I results should beused in conjunction with other diagnostic information suchas ECG, clinical observations and information, and patientsymptoms to aid in the diagnosis of SC. 11/23/2024 9:08 AM EDT 11/23/2024 9:11 AM EDT us Generic External Data Provider LAB BLOOD ORDERAB LES Final Result [facility] [address] [place], [place] [phone] * CBC auto differential (11/23/2024 9:08 AM EDT) Only the most recent of2 resultswithin the time period is included. White Blood Count 7.5 4.8 - 10.8 X10*3/uL [facility] Red Blood Count 4.70 4.20 - 5.50 X10*6/uL [facility] Hemoglobin 14.3 12.0 - 16.0 g/dl [facility] Hematocrit 44.1 37.0 - 47.0 % [facility] Mean Corpuscular Volume 93.8 80.0 - 98.0 fL [facility] Mean Corpuscular Hemoglobin 30.4 27.0 - 33.0 pg [facility] Mean Corpuscular HGB Conc 32.4 31.0 - 35.0 g/dl [facility] Red Cell Distribution Width 13.6 11.0 - 16.0 % [facility] Platelet Count 161 160 - 400 X10*3/uL [facility] Mean Platelet Volume 11.1 9.4 - 12.3 fL [facility] Neutrophils Percent Auto 72.9 45 - 73 % [facility] Imm Gran Pct Auto 0.4 0.0 - 0.4 % [facility] Lymphocytes Percent Auto 20.9 20 - 40 % [facility] Monocytes Percent Auto 5.0 2 - 11 % [facility] Eosinophils Percent Auto 0.5 0 - 4 % [facility] Basophils Percent Auto 0.3 0 - 2 % [facility] NRBC Pct Auto 0.0 0.0 - 0.2 /100WBC [facility] Neutrophils Absolute Auto 5.4 2.0 - 8.3 x10*3/uL [facility] Imm Gran Abs Auto 0.03 0.00 - 0.03 X10*3/uL [facility] Lymphocytes Absolute Auto 1.6 1.2 - 4.9 X10*3/uL [facility] Monocytes Absolute Auto 0.4 0.1 - 1.2 X10*3/uL [facility] Eosinophils Absolute Auto 0.0 0.0 - 0.4 X10*3/uL [facility] Basophils Absolute Auto 0.0 0.0 - 0.2 X10*3/uL [facility] NRBC Abs Auto 0.000 0.0 - 0.012 X10*3/uL [facility] 11/23/2024 9:08 AM EDT 11/23/2024 9:11 AM EDT us Generic External Data Provider LAB BLOOD ORDERAB LES Final Result [facility] [address] [place] [phone] * (ABNORMAL) Comprehensive Metabolic Panel (11/23/2024 9:08 AM EDT) Only the most recent of2 resultswithin the time period is included. Sodium 140 135 - 145 mmol/L [facility] Potassium 3.9 3.3 - 5.1 mmol/L [facility] Chloride 109(H) 96 - 108 mmol/L [facility] Carbon Dioxide 22 22 - 29 mmol/L [facility] Anion Gap 13 12 - 20 [facility] Urea Nitrogen (BUN) 15 9 - 16 mg/dL [facility] Creatinine, Serum 0.73 0.5 - 1.4 mg/dL [facility] Creatinine Clr Calc Pharmacy 89.5 [facility] Comment:Provided height and weight: 149.86 cm,96.162 kg.eGFR (calculated from the MDRD study equation) and eCrCl(calculated from the Cockcroft-Gault equation) are based ondifferent parameters and may not yield comparable results.If eCrCl result is absurd, please check patient'sheight/weight. Estimated Glomerular Filt Rate >60 [facility] Comment:Chronic Kidney Disea se: Estimated GFR < 60 mL/min/1.73r9Fihjvo Kidney Disease: Estimated GFR < 15 mL/min/1.73m2 Glucose 89 60 - 115 mg/dL [facility] Calcium 9.2 8.4 - 10.2 mg/dL [facility] Bilirubin, Total 0.3 0.0 - 1.0 mg/dL [facility] Aspartate Amino Transferase 44(H) 5 - 31 U/L [facility] Alanine Aminotransferase 43(H) 0 - 31 U/L [facility] Total Protein 8.1(H) 6.5 - 8.0 g/dL [facility] Albumin Level 4.4 3.5 - 5.0 g/dL [facility] Alkaline Phosphatase 74 39 - 117 U/L [facility] 11/23/2024 9:08 AM EDT 11/23/2024 9:11 AM EDT us Generic External Data Provider LAB BLOOD ORDERAB LES Final Result Performing Organization Address City/[facility] Co de Phone Number [facility] [address] [place] [phone] * Albumin, Random Urine W/Creatinine (06/12/2024 11:40 AM EDT) Creatinine, Urine 195.62 mg/dL [facility] Microalbumin Urine 41.0 mg/L [facility] [facility] Microalbum Creatinine Ratio Ur 20.9 <30 ug/mg cr [facility] Comment:Albumin/Creatinine R atio Reference Ranges: Normal: < 30 ug/mg creatinine Microalbuminuria: 30 - 300 ug/mg creatinineClinical Albuminuria: > 300 ug/mg creatinine Urine (Urine, Random) 06/12/2024 11:40 AM EDT 06/12/2024 1:08 PM EDT us Wendy Vance MD LAB URINE ORDERAB LES Final Result Performing Organization Address [facility] Co de Phone Number [facility] [address] [place] [phone] * Hepatitis C Antibody with Reflex to HCV, RNA, Quantitative, Real-Time PCR (06/12/2024 11:39 AM EDT) [facility] Hepatitis C Antibody Nonreactive Nonreactive [facility] Comment:Antibodies to HCV no t detected; does not exclude early acuteHCV infection. Blood Venous blood specimen / Unknown 06/12/2024 11:39 AM EDT 06/12/2024 1:19 PM EDT us Wendy Vance MD LAB BLOOD ORDERAB LES Final Result Performing Organization Address [facility]/ZIP Co de Phone Number [facility] [address] [place] [phone] * HIV-1/2 Antigen and Antibodies, Fourth Generation, with Reflexes (06/12/2024 11:39 AM EDT) [facility] HIV AB/AG Nonreactive Nonreactive [facility] Comment:HIV-1 p24 Ag and/or HIV-1/HIV-2 Ab not detected.A test result that is nonreactive does not exclude thepossibility of exposure to or infection with HIV-1 and/orHIV-2. Nonreactive results in this assay for individualswith prior exposure to HIV-1 and/or HIV-2 may be due toantigen and antibody levels that are below the limit ofdetection of this assay.The [employer] HIV Ag/Ab Combo assay result andsupplemental assay results should be interpreted inconjunction with the patient's clinical presentation,history and other laboratory results. If the results areinconsistent with clinical evidence, additional testing issuggested to confirm the result. Blood Venous blood specimen / Unknown 06/12/2024 11:39 AM EDT 06/12/2024 1:19 PM EDT us Wendy Vance MD LAB BLOOD ORDERAB LES Final Result Performing Organization Address City/[facility]/ZIP Co de Phone Number [facility] [address] [place] [phone] * Hemoglobin A1c (06/12/2024 11:39 AM EDT) Hemoglobin A1c 5.7 <6.0 % [facility] Comment:Hemoglobin A1C Refer ence Range Adults: 4.8 - 6.0 % Non diabetic: < 6.0 % Goal: < 7.0 %Additional Action Suggested: > 8.0 %Note: Hemoglobin A1c results are invalid for patients with abnormal amounts of HbF. Blood transfusions may impact the HbA1c concentration in the patient sample. Estimated Average Glucose 117 mg/dL [facility] Comment:eAG = Estimated ave rage glucose which is %A1C expressed asaverage glucose, using the formula of the M8C-NtbmrmqCwnolmw Glucose study (ADAG), Diabetes Care, Vol.31,#8,Mar. 2007 Blood Venous blood specimen / Unknown 06/12/2024 11:39 AM EDT 06/12/2024 1:19 PM EDT us Wendy Vance MD LAB BLOOD ORDERAB LES Final Result [facility] [address] [place] [phone] * (ABNORMAL) Lipid Panel, Standard (06/12/2024 11:39 AM EDT) Triglycerides 113 <150 mg/dL [facility] Comment:Desirable Triglyceri de: less than 150 mg/dLBorderline High Triglyceride 150-199 mg/dLHigh Triglyceride: 200-499 mg/dLVery High Triglyceride: greater than or equal to 5OO mg/dL Cholesterol 232(H) <200 mg/dL [facility] Comment:Desirable Cholestero l: less than 200 mg/dLBorderline High Cholesterol: 200-239 mg/dLHigh Cholesterol: greater than 239 mg/dL LDL Cholesterol Calculated 155(H) <100 mg/dL [facility] Comment:Desirable LDL: less than 100 mg/dLNear Optimal/Above Optimal LDL: 110- 129 mg/dLBorderline High LDL: 130-159 mg/dLHigh LDL: 160-189 mg/dLVery High LDL: greater than or equal to 190 mg/dL HDL Cholesterol 55 >40 mg/dL [facility] Comment:Desirable HDL: great er than 40 mg/dL Note: This HDL assay may give artificially low results in patients with liver disease. Blood Venous blood specimen / Unknown 06/12/2024 11:39 AM EDT 06/12/2024 1:19 PM EDT us Wendy Vance MD LAB BLOOD ORDERAB LES Final Result [facility] [address] [place] [phone] * BI Mammogram Screening Tomosynthesis Bilateral (02/27/2024 11:03 AM EDT) Anatomical Region Laterality Modality Breast Bilateral Mammography 02/27/2024 11:0 3 AM EDT Narrative 03/23/2024 10:37 PM EDT ? [facility] [place] ? [address] ?[place] [phone] ? Mammography Report ? Signed ? Patient: Jocelin Auguste ?M ?? R#: [id number] ? : 1970 ?Acct:[id number] ? Age/Sex: 53 / F ?ADM Date: //24 ? Loc: HO.MAMMO ? Attending Dr: Ronni Bautista MD ? Ordering Physician: Ronni Bautista MD ?Results: 1Negativ ?? e ? Date of Service: 02/27/24 ?Follow Up: 1 Year From Orig ?? inal Mammogram ? Procedure(s): MM tomosynthesis screening BI ?? Accession Number(s): [id number] ? cc: Wendy Pang MD; Ronni Bautista [...] 03/23/242232 ? DD/ 02 ? TD/TT: ? Engineer System Administrator: ? Procedure Note Syed, Carline - 03/23/2024 [facility] [address] [place] [address] [place] [address] Mammography Report Signed Patient: Jo Auguste R#: [id number] : 1970Acct:[id number] Age/Sex: 53 / FADM Date: 02/27/24 Loc: HO.MAMMO Attending Dr: Ronni Bautista MD Ordering Physician: Ronni Bautista MDResults: 1Negativ e Date of Service: 02/27/24Follow Up: 1 Year From Orig ina Mammogram Procedure(s): MM tomosynthesis screening BI Accession Number(s): [id number] cc: Wendy Pang MD; Ronni Bautista MD [...] signed by Lexie Silva MD in OV> 03/23/243 DD/ 1103 TD/TT: Engineer System Administrator: [facility] External Provider IMG BI PROCEDURES Final [...] Most Recently Relevant to Health Maintenance Insurance [facility] ST[employer] Care Teams Instrument Engineer Relationship Specialty Start Date End Date Wendy Pang MD [address] [place] [address] PCP - General Internal Medicine 02/23/23
[2025-01-22 10:23] VITALS: BP 116/62; PULSE 88; O2SAT 97; BMI 34.7
== END 2025-01-22 12:12 | disposition home or self-care (01) ==
PROVIDERS: Visit Provider Nurse Practitioner
DX: Z01.818 Encounter for other preprocedural examination (principal); Z12.11 Encounter for screening for malignant neoplasm of colon; K21.9 Gastro-esophageal reflux disease without esophagitis; R10.10 Upper abdominal pain, unspecified; K82.8 Other specified diseases of gallbladder; K75.81 Nonalcoholic steatohepatitis (NASH); R59.9 Enlarged lymph nodes, unspecified
CPT/HCPCS: 99203

== ENCOUNTER 2025-01-22 09:33 | Outpatient (REF) | payer MEDICAID, SELFPAY ==
[2025-01-22 13:22] LABS: Erythrocyte Sedimentation Rate 28 MM/HR (0-20)
[2025-01-22 13:36] LABS: Free T4 (Free Thyroxine) 1.26 ng/dL (0.71-1.85); Thyroid Stimulating Hormone 0.62 uIU/mL (0.32-4.0)
[2025-01-22 13:50] LABS: Anion Gap 11 (12-20)
[2025-01-22 14:06] LABS: Alanine Aminotransferase 38 U/L (0-31); Albumin Level 4.4 g/dL (3.5-5.0); Alkaline Phosphatase 70 U/L (39-117); Aspartate Amino Transferase 47 U/L (5-31); Bilirubin Total 0.4 mg/dL (0.0-1.0); Blood Urea Nitrogen 16 mg/dL (9-16); C Reactive Protein 1.61 mg/dL (< or = 0.50); Calcium 9.6 mg/dL (8.4-10.2); Carbon Dioxide 26 mmol/L (22-29); Chloride 110 mmol/L (96-108); Cholesterol 159 mg/dL (<200); Estimated Glomerular Filt Rate > 60; Glucose Random 82 mg/dL (60-115); HDL Cholesterol 42 mg/dL (>40); LDL Cholesterol Calculated 97 mg/dL (<100); Potassium 4.3 mmol/L (3.3-5.1); Sodium 143 mmol/L (135-145); Triglycerides 101 mg/dL (<150)
[2025-01-23 09:23] LABS: H Pylori Breath Test Positive (Negative)
== END 2025-01-22 09:34 | disposition home or self-care (01) ==
LOC: HO.LAB 09:33
PROVIDERS: Absent Provider Student in an Organized Health Care Education/Training Program; PCP Student in an Organized Health Care Education/Training Program; Visit Provider Nurse Practitioner
DX: Z01.818 Encounter for other preprocedural examination (principal); K21.9 Gastro-esophageal reflux disease without esophagitis; K82.8 Other specified diseases of gallbladder; R10.10 Upper abdominal pain, unspecified; K75.81 Nonalcoholic steatohepatitis (NASH); R59.9 Enlarged lymph nodes, unspecified; E03.9 Hypothyroidism, unspecified; M25.50 Pain in unspecified joint; J45.909 Unspecified asthma, uncomplicated; E66.9 Obesity, unspecified; G47.30 Sleep apnea, unspecified
CPT/HCPCS: 36415; 80053; 80061; 82550; 83013; 84439; 84443; 85652; 86140; 99212

== ENCOUNTER 2025-03-04 09:24 | Outpatient (REF) | payer MEDICAID, SELFPAY ==
--- OUTSIDE RECORDS SUMMARY | 2025-03-04 09:41 | XMS_ITS | Clinical Summary ---
Author Organization [employer] Address [address] [place] [address] Care Team Providers Care Rigging Engineer Name Role Phone Wendy Pang MD Primary Care Pro vider Allergies No known active allergies Medications * This document contains information received from the source organization and may not represent a complete record from that organization. Blood Pressure kit 1 Device Once per day. 1 kit 04/28/20 24 Active ibuprofen 800 MG tablet 800 mg. Active atorvastatin (Lipitor) 20 MG tabletIndications :Mixed hyperlipidemia TAKE 1 TABLET BY MOUTH EVERY DAY 90 tablet 3 10/16/19 25 Active losartan-hydroCHL OROthiazide (Hyzaar) 100-12.5 MG tablet TAKE 1 TABLET BY MOUTH EVERY DAY 90 tablet 3 10/16/19 25 Active traZODone (Desyrel) 50 MG tabletIndications :PTSD (post-traumatic stress disorder) Take 0.5 tablets (25 mg) by mouth at bedtime. May take 1 tablet (50 mg) by mouth at bedtime as needed. 20 tablet 11/17/19 25 Active fluticasone (Flonase) 50 MCG/ACT nasal sprayIndications: Unspecified Eustachian tube disorder, left ear Administer 2 sprays into each nostril Once per day. Shake gently. Before first use, prime pump. After use, clean tip and replace cap. 16 g 2 11/28/19 25 026 Active polyvinyl alcohol (Liquifilm Tears) 1.4 % ophthalmic solutionIndicatio ns:Dry eyes, bilateral Administer 1 drop into both eyes if needed for dry eyes. 15 mL 5 12/02/19 25 Active cetirizine (ZyrTEC) 10 MG tablet TAKE 1 TABLET BY MOUTH EVERY DAY 90 tablet 01/14/20 25 Active pregabalin (Lyrica) 150 MG capsuleIndication s:Polyarthralgia Take 1 capsule (150 mg) by mouth 2 times daily. 60 capsule 2 01/14/20 25 026 Active levothyroxine (Synthroid, Levoxyl) 88 MCG tablet TAKE 1 TABLET BY MOUTH EVERY MORNING BEFORE BREAKFAST 30 tablet 01/21/20 25 Active levothyroxine (Synthroid) 88 MCG tablet Take 1 tablet (88 mcg) by mouth before breakfast. 30 tablet 3 01/23/20 25 026 Active DULoxetine (Cymbalta) [address] capsuleIndication s:PTSD (post-traumatic stress disorder) Take 1 capsule (30 mg) by mouth 2 times daily. Do not crush or chew. 60 capsule 1 01/23/20 25 025 Active Tirzepatide-Weigh t Management (Zepbound) 12.5 MG/0.5ML solution auto-injector Inject 0.5 mL (12.5 mg) under the skin 1 (one) time per week. 2 mL 02/18/20 25 Active Tirzepatide-Weigh t Management (Zepbound) 10 MG/0.5ML solution auto-injector Inject 0.5 mL (10 mg) as directed 1 (one) time per week. INJECT ONE PEN (=10 MG) SUBCUTANEOUSLY ONCE A WEEK 2 mL 01/22/20 25 025 Disconti marcela(Oth er) Active Problems Problem Noted Date Diagnosed Date [...] of migraines, was [facility] a medication [facility], not sure of the name Will start [...] (Eric Ruff) and has a therapist in [place] (agency unknown). Pt will continue current treatment [...] (Eric Ruff) and has a therapist in [place] (agency unknown). Pt will continue current treatment [...] organization. Date Type Department Care Team Description 02/26/2025 Patient Outreach [facility] [address] [place] [phone] Wendy Pang MD Care Coordination (CHW outreach for SDOH PT-1 and food needs-referral completed /) 02/26/2025 Telephone [facility] [address] [place] [phone] Wendy Pang MD PT1 02/23/2025 Orders Only [facility] [address] [place] [phone] Wendy Pang MD Chronic bilateral low back pain with bilateral sciatica (Primary Dx) 02/22/2025 Telephone [facility] [address] [place] [phone] Wendy Pang MD Referral 02/18/2025 Refill [facility] [address] [place] [address] Lana Obrien, RITA Unspecified Eustachian tube disorder, left ear 02/17/2025 Orders Only [facility] [address] [place] [address] Wendy Pang MD 02/17/2025 Refill [facility] [address] [place], [place] [phone] Anita Oliva MD 01/25/2025 Results Follow-Up [facility] [address] [place] [address] Wendy Pang MD T4, Free, TSH, Comprehensive Metabolic Panel, Lipid Panel, Standard 01/25/2025 Results Follow-Up [facility] [place] [address] Wendy Pang MD Helicobacter pylori, Urea Breath Test 01/25/2025 Orders Only [facility] [address] [place] [address] Wendy Pang MD Elevated CPK (Primary Dx); Neuropathy 01/22/2025 Orders Only GENERIC EXTERNAL DATA DEPARTMENT Provider, Generic External Data 01/22/2025 Refill [facility] [address] [place] [address] Wendy Pang MD PTSD (post-traumatic stress disorder) 01/21/2025 10:30 AM EDT Telemedicine [facility] [address] [place] [phone] Mel Amezcua PharmD Hypothyroidism, unspecified type (Primary Dx); Primary hypertension; Mixed hyperlipidemia 01/21/2025 Refill [facility] [address] [place] [address] Wendy Pang MD 01/20/2025 Refill [facility] [address] [place] [address] Wendy Pang MD 01/20/2025 Refill [facility] [address] [place] [address] Wendy Pang MD 01/20/2025 Refill [facility] [address] [place] [address] Gladys Cee MD 01/15/2025 Telephone [facility] [address] [place] [phone] Wendy Pang MD Durable Medical Equipment 01/13/2025 11:30 AM EDT Office Visit [facility] [address] [place] [phone] Wendy Pang MD Hypothyroidism, unspecified type (Primary Dx); Polyarthralgia; Class 2 severe obesity due to excess calories with serious comorbidity and body mass index (BMI) of 39.0 to 39.9 in adult ([facility]); Chronic pain of left knee; Primary hypertension; Pulsatile tinnitus of both ears; Health care maintenance; Generalized anxiety disorder; Arthritis of knee; Fibromyalgia; Neck pain; Bilateral carpal tunnel syndrome; Leg mass, left; Abnormal CT of the abdomen 01/13/2025 Travel 01/12/2025 Telephone [facility] [address] [place] [address] Wendy Pang MD Chart Prep 01/12/2025 Refill [facility] [address] [place] [address] Wendy Pang MD 01/08/2025 Results Follow-Up [facility] [address] [place] [address] Abdomen Pelvis w/ Contrast 01/07/2025 Orders Only [facility] [address] [place] [address] Wendy Pang MD 01/07/2025 Refill [facility] [address] [place] [address] Wendy Pang MD Type 2 diabetes mellitus without complication, without long-term current use of insulin ([facility]) 12/25/2024 3:30 PM EDT Office Visit [facility] [address] [place] [address] Henrry, Bryanna, OD Presbyopia (Primary Dx) 12/25/2024 Telephone [facility] [address] [place] [address] Wendy Pang MD Med Refill 12/25/2024 Telephone [facility] [address] [place] [address] Wendy Pang MD Medication Question 12/25/2024 Refill [facility] [address] [place] [address] Wendy Pang MD 12/18/2024 Orders Only [facility] [address] [place] [address] Wendy Pang MD Polyarthralgia (Primary Dx); Elevated C-reactive protein (CRP) 12/17/2024 Travel 12/15/2024 Patient Outreach [facility] [address] [place] [address] Wendy Pang MD Care Coordination (CHW outreach for SDOH PT-1 and food needs-referral completed /) 12/14/2024 Telephone [facility] [address] [place] [address] Wendy Pang MD pt1 12/09/2024 Telephone [facility] [address] [place] [phone] Wendy Pang MD Med Refill 12/04/[address] [phone] Guadalupe Grimes, MANNY Durable Medical Equipment 12/04/2024 Telephone [facility] [address] [place], [place] [phone] Lana Obrien NP Results from Last 3 Months Immunizations Immunization Administration [...] 92 01/13/2025 11:03 AM EDT Temperature 36.6 C (97.8 F) 11/27/2024 1:04 PM EDT Respiratory Rate 14 01/13/2025 11:03 AM EDT Oxygen Saturation 95% 01/13/2025 11:03 AM EDT Inhaled Oxygen Concentration - - Weight 91.4 kg (201 lb 9.6 oz) 01/13/2025 11:03 AM EDT Height 157 cm (5' 1.81 ) 01/13/2025 11:03 AM EDT Body Mass Index 37.1 01/13/2025 11:03 AM EDT Plan of Treatment Upcoming Encounters Date Type Department Care Team (Late st Contact Info) Description 03/18/2025 11:30 AM EDT Office Visit [facility] [address] [place] [phone] Wendy Pang MD [address] [place] [phone] Health Maintenance Due Date Last Done Comments [...] Cervical Cancer Screening 02/10/2025 HPV/Cotest 02/10/2025 01/09/2024, 2 09/2023, 12/12/2022 Pap Smear 02/10/2025 01/09/2024, 12/18, 12/12/2022 Mammogram 02/26/2025 02/27/2024, 06/0 12/2022, 01/21/2023 Influenza Vaccine (#1) 2025 06/16/2024 Depression Monitoring 05/22/2025 11/20/2024, 025 Diabetes: Urine Protein Screening 06/12/2025 06/12/2024 Alcohol/Substance Use Screening 11/20/2025 11/20/2024 Disability Screening 11/20/2025 11/20/2024 SDOH Screening 01/13/2026 01/13/2025 Tobacco Screening 01/13/2026 01/13/2025 Lipid Panel 01/22/2026 01/22/2025, 06/12/2024 Eye Exam 12/01/2026 12/01/2024, 11/17, 12/01/2024, Additional history exists DTaP/Tdap/Td Vaccines (2 - Td or Tdap) 04/28/2034 04/28/2024 RSV Patients and Patients Aged 60 years or older (1 - 1-dose 75+ series) 2045 Colposcopy Discontinued 02/11/2024, 01/17, 01/31/2023 HIV Screening Completed 06/12/2024 Hepatitis C Screening Completed 06/12/2024 Zoster Vaccines Completed 10/26/2024, 07/08/2024 HIB Vaccines [...] Procedure Name Priority Date/Time Associated Diagnosis Comments SED RATE BY MODIFIED WESTERGREN Routine 01/22/2025 12:19 PM EDT Polyarthralgia C-REACTIVE PROTEIN Routine 01/22/2025 12 :19 PM EDT Polyarthralgia CREATINE KINASE, TOTAL Routine 12:19 PM EDT Polyarthralgia LIPID PANEL, STANDARD Routine 01/22/2025 12:19 PM EDT Hypothyroidism, unspecified type COMPREHENSIVE METABOLIC PANEL Routine 01/22/2025 12:19 PM EDT Hypothyroidism, unspecified type TSH Routine 01/22/2025 12:19 PM EDT Hypothyroidism, unspecified type T4, FREE Routine 01/22/2025 12:19 PM EDT Hypothyroidism, unspecified type HELICOBACTER PYLORI, UREA BREATH TEST Routine 01/22/2025 12:[address] ABDOMEN PELVIS W CONTRAST Routine 01/08/2025 10:50 AM EDT Transaminitis Enlarged lymph node POCT CREATININE GFR Routine 01/07/2025 1 1:33 AM EDT ALBUMIN, RANDOM URINE W/CREATININE Routine [...] Recently Relevant to Health Maintenance Results * (ABNORMAL) Sed Rate by Modified Matilderen (01/22/2025 12:19 PM EDT) Erythrocyte Sedimentation Rate 28(H) 0 - 20 MM/HR [facility] Comment:Patients with polycy themia and many hemoglobin abnormalitiesmay have depressed sed rates whereas patients with anemiamay have elevated sed rates. Blood Venous blood specimen / Unknown 01/22/2025 12:19 PM EDT 01/22/2025 12:19 PM EDT us Wendy Vance MD LAB BLOOD ORDERAB LES Final Result [facility] [address] [place] [phone] * (ABNORMAL) C-reactive Protein (01/22/2025 12:19 PM EDT) C Reactive Protein 1.61(H) < or = 0.50 mg/dL [facility] Blood Venous blood specimen / Unknown 01/22/2025 12:19 PM EDT 01/22/2025 12:19 PM EDT us Wendy Vance MD LAB BLOOD ORDERAB LES Final Result Performing Organization Address City/[facility]/ZIP Co de Phone Number [facility] [address] [place] [address] [phone] * TSH (01/22/2025 12:19 PM EDT) Pathologist [facility] Thyroid Stimulating Hormone 0.62 0.32 - 4.0 uIU/mL [facility] Comment:TSH 3rd Generation ( [facility]) Blood Venous blood specimen / Unknown 01/22/2025 12:19 PM EDT 01/22/2025 12:19 PM EDT us Wendy Vance MD LAB BLOOD ORDERAB LES Final Result Performing Organization Address [facility] Co de Phone Number [facility] [address] [place] [address] [phone] * T4, Free (01/22/2025 12:19 PM EDT) Pathologist [facility] Free T4 (Free Thyroxine) 1.26 0.71 - 1.85 ng/dL [facility] Blood Venous blood specimen / Unknown 01/22/2025 12:19 PM EDT 01/22/2025 12:19 PM EDT Wendy Vance MD LAB BLOOD ORDERAB LES Final Result Performing Organization Address [facility]/ZIP Co de Phone Number [facility] [address] [place] [address] [phone] * (ABNORMAL) Creatine Kinase, Total (01/22/2025 12:19 PM EDT) Creatine Kinase Total 520(H) 26 - 140 U/L [facility] Blood Venous blood specimen / Unknown 01/22/2025 12:19 PM EDT 01/22/2025 12:19 PM EDT Wendy Vance MD LAB BLOOD ORDERAB LES Final Result Performing Organization Address City/[facility]/ZIP Co de Phone Number [facility] [address] [place] [address] [phone] * Lipid Panel, Standard (01/22/2025 12:19 PM EDT) Triglycerides 101 <150 mg/dL [facility] Comment:Desirable Triglyceri de: less than 150 mg/dLBorderline High Triglyceride 150-199 mg/dLHigh Triglyceride: 200-499 mg/dLVery High Triglyceride: greater than or equal to 5OO mg/dL Cholesterol 159 <200 mg/dL [facility] Comment:Desirable Cholestero l: less than 200 mg/dLBorderline High Cholesterol: 200-239 mg/dLHigh Cholesterol: greater than 239 mg/dL LDL Cholesterol Calculated 97 <100 mg/dL [facility] Comment:Desirable LDL: less than 100 mg/dLNear Optimal/Above Optimal LDL: 110- 129 mg/dLBorderline High LDL: 130-159 mg/dLHigh LDL: 160-189 mg/dLVery High LDL: greater than or equal to 190 mg/dL HDL Cholesterol 42 >40 mg/dL [facility] Comment:Desirable HDL: great er than 40 mg/dL Note: This HDL assay may give artificially low results in patients with liver disease. Blood Venous blood specimen / Unknown 01/22/2025 12:19 PM EDT 01/22/2025 12:19 PM EDT us Wendy Vance MD LAB BLOOD ORDERAB LES Final Result [facility] [address] [place] [phone] * (ABNORMAL) Comprehensive Metabolic Panel (01/22/2025 12:19 PM EDT) Sodium 143 135 - 145 mmol/L [facility] Potassium 4.3 3.3 - 5.1 mmol/L [facility] Comment:Slight Hemolysis.Int erpret result with caution. Chloride 110(H) 96 - 108 mmol/L [facility] Carbon Dioxide 26 22 - 29 mmol/L [facility] Anion Gap 11(L) 12 - 20 [facility] Urea Nitrogen (BUN) 16 9 - 16 mg/dL [facility] Creatinine, Serum 0.67 0.5 - 1.4 mg/dL [facility] Estimated Glomerular Filt Rate >60 [facility] Comment:Chronic Kidney Disea se: Estimated GFR < 60 mL/min/1.22i6Wcdzzy Kidney Disease: Estimated GFR < 15 mL/min/1.73m2 Glucose 82 60 - 115 mg/dL [facility] Calcium 9.6 8.4 - 10.2 mg/dL [facility] Bilirubin, Total 0.4 0.0 - 1.0 mg/dL [facility] Aspartate Amino Transferase 47(H) 5 - 31 U/L [facility] Comment:Slight Hemolysis.Int erpret result with caution. Alanine Aminotransferase 38(H) 0 - 31 U/L [facility] Total Protein 8.0 6.5 - 8.0 g/dL [facility] Albumin Level 4.4 3.5 - 5.0 g/dL [facility] Alkaline Phosphatase 70 39 - 117 U/L [facility] Blood Venous blood specimen / Unknown 01/22/2025 12:19 PM EDT 01/22/2025 12:19 PM EDT us Wendy Vance MD LAB BLOOD ORDERAB LES Final Result [facility] [address] [place] [phone] * Helicobacter pylori, Urea Breath Test (01/22/2025 12:00 PM EDT) H. pylori Breath Test Positive Negative [facility] Comment:Antimicrobials, prot on pump inhibitors and bismuthpreparations are known to suppress H. pylori. Ingestingthese medications within two weeks prior to performing thebreath test may produce negative test results. A positiveresult is still clinically valid. 01/22/2025 12:0 0 PM EDT 01/22/2025 3:20 PM EDT us Generic External Data Provider LAB BODY FLUIDS A ND STOOLS ORDERABLES Final Result [facility] [address] [place] [phone] * CT Abdomen Pelvis w/ Contrast (01/08/2025 10:50 AM EDT) Anatomical Region Laterality Modality Body, Pelvis, Abdomen Computed T omography 01/08/2025 10:5 0 AM EDT Narrative 01/08/2025 10:51 AM EDT [address] [address] [address] Scan Report Signed Patient: Jocelin Auguste#: [id number] : 1970 Acct:[id number] Age/Sex: 54 / F ADM Date: 01/07/25 Loc: HO.CT Attending Dr: Wendy Vance MD Ordering Physician: Wendy Pang MD Date of Service: 01/07/25 Procedure(s): CT abdomen pelvis w IV con Accession Number(s): [id number] cc: Wendy Pang MD Report Number: [id number]: Total DLP = 587.00 mGy-cm CLINICAL HISTORY: atypical lymph node present in sperior peripancreatic region CT abdomen and pelvis with contrast Comparison: US/NH/SR - US ABDOMEN LIMITED - 01/28/24 10:26 [...] 01/08/25 1051 DD/ 1050 TD/TT: 01/08/25 1050 Payroll Clerk: Procedure Note Donotuseinterpreter, Image - 01/08/[address] [place] [address] [address] Scan Report Signed Patient: Jo Auguste R#: [id number] : 1970Acct:[id number] Age/Sex: 54 / FADM Date: 01/07/25 Loc: HO.CT Attending Dr: Wendy Vance MD Ordering Physician: Wendy Pang MD Date of Service: 01/07/25 Procedure(s): CT abdomen pelvis w IV con Accession Number(s): [id number] cc: Wendy Pang MD Report Number: [id number]: Total DLP = 587.00 mGy-cm CLINICAL HISTORY: atypical lymph node present in sperior peripancreaticregion CT abdomen and pelvis with contrast Comparison: US/NH/SR - US ABDOMEN LIMITED - 01/28/24 10:26 [...] 01/08/25 1051 DD/ 1050 TD/TT: 01/08/25 1050 Payroll Clerk: Wendy Vance MD IMG CT PROCEDURES Final Result * POCT Creatinine GFR (01/07/2025 11:33 AM EDT) POCT Creatinine 0.7 0.5 - 1.4 mg/dL [facility] GFR POC >60 [facility] Comment:Chronic Kidney Disea se: Estimated GFR < 60 mL/min/1.39a0Ymegkw Kidney Disease: Estimated GFR < 15 mL/min/1.73m2 01/07/2025 11:3 3 AM EDT 01/07/2025 3:17 PM EDT Narrative [facility] - 01/07/2025 3:20 PM EDT [id number] Wendy Vance MD LAB POINT OF CARE TEST DOCKED DEVICE ORDERABLES Final Result [facility] [address] [place] [phone] * Albumin, Random Urine W/Creatinine (06/12/2024 11:40 AM EDT) Creatinine, Urine 195.62 mg/dL [facility] Microalbumin Urine 41.0 mg/L [facility] Microalbum Creatinine Ratio Ur 20.9 <30 ug/mg cr [facility] Comment:Albumin/Creatinine R atio Reference Ranges: Normal: < 30 ug/mg creatinine Microalbuminuria: 30 - 300 ug/mg creatinineClinical Albuminuria: > 300 ug/mg creatinine Urine (Urine, Random) 06/12/2024 11:40 AM EDT 06/12/2024 1:08 PM EDT us Wendy Vance MD LAB URINE ORDERAB LES Final Result Performing Organization Address [facility]/ZIP Co de Phone Number [facility] [address] [place] [phone] * Hepatitis C Antibody with Reflex to HCV, RNA, Quantitative, Real-Time PCR (06/12/2024 11:39 AM EDT) Pathologist [facility] Hepatitis C Antibody Nonreactive Nonreactive [facility] Comment:Antibodies to HCV no t detected; does not exclude early acuteHCV infection. Blood Venous blood specimen / Unknown 06/12/2024 11:39 AM EDT 06/12/2024 1:19 PM EDT us Wendy Vance MD LAB BLOOD ORDERAB LES Final Result Performing Organization Address [facility]/ZIP Co de Phone Number [facility] [address] [place] [address] [phone] * HIV-1/2 Antigen and Antibodies, Fourth Generation, with Reflexes (06/12/2024 11:39 AM EDT) HIV AB/AG Nonreactive Nonreactive [facility] Comment:HIV-1 p24 Ag and/or HIV-1/HIV-2 Ab not detected.A test result that is nonreactive does not exclude thepossibility of exposure to or infection with HIV-1 and/orHIV-2. Nonreactive results in this assay for individualswith prior exposure to HIV-1 and/or HIV-2 may be due toantigen and antibody levels that are below the limit ofdetection of this assay.The [employer] HIV Ag/Ab Combo assay result andsupplemental assay results should be interpreted inconjunction with the patient's clinical presentation,history and other laboratory results. If the results areinconsistent with clinical evidence, additional testing issuggested to confirm the result. Blood Venous blood specimen / Unknown 06/12/2024 11:39 AM EDT 06/12/2024 1:19 PM EDT Wendy Vance MD LAB BLOOD ORDERAB LES Final Result Performing Organization Address City/[facility]/ZIP Co de Phone Number [facility] [address] [place] [address] [phone] * Hemoglobin A1c (06/12/2024 11:39 AM EDT) Hemoglobin A1c 5.7 <6.0 % [facility] Comment:Hemoglobin A1C Refer ence Range Adults: 4.8 - 6.0 % Non diabetic: < 6.0 % Goal: < 7.0 %Additional Action Suggested: > 8.0 %Note: Hemoglobin A1c results are invalid for patients with abnormal amounts of HbF. Blood transfusions may impact the HbA1c concentration in the patient sample. Estimated Average Glucose 117 mg/dL [facility] Comment:eAG = Estimated ave rage glucose which is %A1C expressed asaverage glucose, using the formula of the G1C-IqauuyoWkahnse Glucose study (ADAG), Diabetes Care, Vol.31,#8,Aug. 2007 Blood Venous blood specimen / Unknown 06/12/2024 11:39 AM EDT 06/12/2024 1:19 PM EDT us Wendy Vance MD LAB BLOOD ORDERAB LES Final Result Performing Organization Address [facility] Co de Phone Number [facility] [address] [place] [address] [phone] * BI Mammogram Screening Tomosynthesis Bilateral (02/27/2024 11:03 AM EDT) Anatomical Region Laterality Modality Breast Bilateral Mammography 02/27/2024 11:0 3 AM EDT Narrative 03/23/2024 10:37 PM EDT [address] [place] [address] Mammography Report Signed Patient: Jocelin Auguste R#: [id number] : 1970 Acct:[id number] Age/Sex: 53 / F ADM Date: 02/27/24 Loc: HO.MAMMO Attending Dr: Ronni Bautista MD Ordering Physician: Ronni Bautista MD Results: 1Negativ e Date of Service: 02/27/24 Follow Up: 1 Year From Orig ina Mammogram Procedure(s): MM tomosynthesis screening BI Accession Number(s): [id number] cc: Wendy Pang MD; Ronni Bautista MD [...] in OV> 03/23/24 2233 DD/ 1103 TD/TT: Payroll Clerk: Procedure Note Donotuseinterpreter, Image - 03/23/[address] [place] [address] Mammography Report Signed Patient: Jo Auguste R#: [id number] : 1970Acct:[id number] Age/Sex: 53 / FADM Date: 02/27/24 Loc: HO.MAMMO Attending Dr: Ronni Bautista MD Ordering Physician: Ronni Bautista MDResults: 1Negativ e Date of Service: 02/27/24Follow Up: 1 Year From Orig ina Mammogram Procedure(s): MM tomosynthesis screening BI Accession Number(s): [id number] cc: Wendy Pang MD; Ronni Bautista MD [...] MD in OV> 03/23/243 DD/ 1103 TD/TT: Payroll Clerk: [facility] External Provider IMG BI PROCEDURES Final Result [...] Most Recently Relevant to Health Maintenance [place] [address] [place] [address] STANDARD Care Teams Rigging Engineer Relationship Specialty Start Date End Date Wendy Pang MD [address] [place] [phone] PCP - General Internal Medicine 02/23/23
--- OUTSIDE RECORDS SUMMARY | 2025-03-04 09:41 | XMS_ITS | Patient Health Record ---
Author Organization [facility] enter Address [address] [place] [address] Care Team Providers Care Case Operator Name Role Phone Michael Muller Primary [...] Problem Status W/U Status Risk Notes Problem [id number] Cervicalgia (M54.2) Active confirmed Problem [id number] Morbid (severe) obesity due to excess calories (E66.01) Active confirmed Problem 962728236 Acquired hypothyroidism (E03.9) Active confirmed Problem 39574944 Hyperlipidemia, unspecified hyperlipidemia type (E78.5) Active confirmed Problem 142985994 Type 2 diabetes mellitus without complication, without long-term current use of insulin (E11.9) Active confirmed Problem 34680412 Dysphagia, unspecified type (R13.10) Active confirmed Problem 264942943 Depression with anxiety (F41.8) Active confirmed Problem 85767503 Sleep apnea, unspecified type (G47.30) Active confirmed Problem 234030563 History of asthm a (Z87.09) Active confirmed Problem 396207922 Ear itch (L29.9) Active confirmed Problem 447405711 History of sleep apnea (Z86.69) Active confirmed Problem 848857180 Body mass index [BMI] 40.0-44.9, adult (Z68.41) [...] End Date NICOLETTE Lynch [address] [place], [place] [id number] Jocelin Talley Self - patient is the insured DENTAL Medicaid [place] [address] [place] [address] [phone] [id number] Jocelin Talley Self - patient is the insured Medical (General) History Surgical History Surgery Date(Month/Year) c section x 3 bilat tubal Hospitalization History Reason Date(Month/Year) see surgical
== END 2025-03-04 09:25 | disposition home or self-care (01) ==
LOC: HO.MAMMO 09:24
PROVIDERS: PCP Student in an Organized Health Care Education/Training Program; Visit Provider Student in an Organized Health Care Education/Training Program
DX: Z12.31 Encounter for screening mammogram for malignant neoplasm of breast (principal)
CPT/HCPCS: 77063; 77067

== ENCOUNTER → 2025-03-04 10:30 | Outpatient (BNV) | payer MEDICAID, SELFPAY | PROVIDERS: PCP Student in an Organized Health Care Education/Training Program; Visit Provider Internal Medicine | DX: Z12.31 Encounter for screening mammogram for malignant neoplasm of breast (principal) | CPT/HCPCS: 77063; 77067 ==

== ENCOUNTER 2025-03-11 08:28 | Outpatient (AMB) | payer MEDICAID, SELFPAY ==
--- OUTSIDE RECORDS SUMMARY | 2025-03-11 08:48 | XMS_ITS | Patient Health Record ---
Author Organization [facility] enter Address [address] [place] [address] Care Team Providers Care Seam Feller Name Role Phone Michael Muller Primary Care Provider [phone] Allergies No Known Allergies Reason For Referral [...] Problem Status W/U Status Risk Notes Problem 60936107 Cervicalgia (M54.2) Active confirmed Problem [id number] Morbid (severe) obesity due to excess calories (E66.01) Active confirmed Problem 900453428 Acquired hypothyroidism (E03.9) Active confirmed Problem 42734694 Hyperlipidemia, unspecified hyperlipidemia type (E78.5) Active confirmed Problem 938102018 Type 2 diabetes mellitus without complication, without long-term current use of insulin (E11.9) Active confirmed Problem 19070245 Dysphagia, unspecified type (R13.10) Active confirmed Problem 682262568 Depression with anxiety (F41.8) Active confirmed Problem 08198593 Sleep apnea, unspecified type (G47.30) Active confirmed Problem 741167031 History of asthm a (Z87.09) Active confirmed Problem 929978201 Ear itch (L29.9) Active confirmed Problem 343114438 History of sleep apnea (Z86.69) Active confirmed Problem 308023508 Body mass index [BMI] 40.0-44.9, adult (Z68.41) [...] End Date NICOLETTE Lynch [address] [place], [place] [id number] [phone] [id number] Jocelin Talley Self - patient is the insured DENTAL Medicaid [place] [address] [place] [address] [phone] [id number] Jocelin Talley Self - patient is the insured Medical (General) History Surgical History Surgery Date(Month/Year) c section x 3 bilat tubal Hospitalization History Reason Date(Month/Year) see surgical
--- OUTSIDE RECORDS SUMMARY | 2025-03-11 08:48 | XMS_ITS | Clinical Summary ---
Author Organization [facility] Address [address] [place] [address] Care Team Providers Care Marketing Production Specialist Name Role Phone Wendy Pang MD [...] of migraines, was receiving a medication from [place], not sure of the name Will start [...] Jocelin is currently connected with psychopharmacology (Eric Rfuf) and has a therapist in [place] (agency unknown). Pt will continue current treatment [...] (Eric Ruff) and has a therapist in [place] (agency unknown). Pt will continue current treatment [...] Department Care Team Description 02/26/2025 Patient Outreach [facility] MEDICINE [address] [place] [phone] Wendy Pnag MD Care Coordination (CHW outreach for SDOH PT-1 and food needs-referral completed /) 02/26/2025 Telephone [facility] MEDICINE [address] [place] [phone] Wendy Pang MD PT1 02/23/2025 Orders Only [facility] MEDICINE [address] [place] [phone] Wendy Pang MD Chronic bilateral low back pain with bilateral sciatica (Primary Dx) 02/22/2025 Telephone [facility] MEDICINE [address] [place] [address] Wendy Pang MD Referral 02/18/2025 Refill [facility] WALK-IN CENTER [address] [place] [address] Lana Obrien, RITA Unspecified Eustachian tube disorder, left ear 02/17/2025 Orders Only [facility] MEDICINE [address] [place] [address] Wendy Pang MD 02/17/2025 Refill [facility] CHC MED & PEDS [address] [place], [place] [phone] Anita Oliva MD 01/25/2025 Results Follow-Up [facility] MEDICINE [address] [place] [address] Wendy Pang MD T4, Free, TSH, Comprehensive Metabolic Panel, Lipid Panel, Standard 01/25/2025 Results Follow-Up [facility] [address] [facility] [place] [address] Wendy Pang MD Helicobacter pylori, Urea Breath Test 01/25/2025 Orders Only [facility] MEDICINE [address] [place] [address] Wendy Pang MD Elevated CPK (Primary Dx); Neuropathy 01/22/2025 Orders Only GENERIC EXTERNAL DATA DEPARTMENT Provider, Generic External Data 01/22/2025 Refill [facility] MED & PEDS [address] [place] [address] Wendy Pang MD PTSD (post-traumatic stress disorder) 01/21/2025 10:30 AM EDT Telemedicine [facility] MEDICINE [address] [place] [phone] Mel Amezcua PharmD Hypothyroidism, unspecified type (Primary Dx); Primary hypertension; Mixed hyperlipidemia 01/21/2025 Refill [facility] MED & PEDS [address] [place] [address] Wendy Pang MD 01/20/2025 Refill [facility] MEDICINE [address] [place] [address] Wendy Pang MD 01/20/2025 Refill [facility] MEDICINE [address] [place] [address] Wendy Pang MD 01/20/2025 Refill [facility] MEDICINE [address] [place] [address] Gladys Cee MD 01/15/2025 Telephone [facility] MEDICINE [address] [place] [phone] Wendy Pang MD Durable Medical Equipment 01/13/2025 11:30 AM EDT Office Visit [facility] MEDICINE [address] [place] [phone] Wendy Pang MD Hypothyroidism, unspecified type (Primary Dx); Polyarthralgia; Class 2 severe obesity due to excess calories with serious comorbidity and body mass index (BMI) of 39.0 to 39.9 in adult ([facility]); Chronic pain of left knee; Primary hypertension; Pulsatile tinnitus of both ears; Health care maintenance; Generalized anxiety disorder; Arthritis of knee; Fibromyalgia; Neck pain; Bilateral carpal tunnel syndrome; Leg mass, left; Abnormal CT of the abdomen 01/13/2025 Travel 01/12/2025 Telephone [facility] MEDICINE [address] [place] [address] Wendy Pang MD Chart Prep 01/12/2025 Refill [facility] MEDICINE [address] [place] [address] Wendy Pang MD 01/08/2025 Results Follow-Up [facility] MEDICINE [address] [place] [address] Abdomen Pelvis w/ Contrast 01/07/2025 Orders Only [facility] MEDICINE [address] [place] [address] Wendy Pang MD 01/07/2025 Refill [facility] MEDICINE [address] [place] [address] Wendy Pang MD Type 2 diabetes mellitus without complication, without long-term current use of insulin ([facility]) 12/25/2024 3:30 PM EDT Office Visit [facility] OPTOMETRY [address] [place] [address] Henrry, Bryanna, OD Presbyopia (Primary Dx) 12/25/2024 Telephone [facility] MEDICINE [address] [place] [address] Wendy Pang MD Med Refill 12/25/2024 Telephone [facility] MEDICINE [address] [place] [address] Wendy Pang MD Medication Question 12/25/2024 Refill [facility] MEDICINE [address] [place] [address] Wendy Pang MD 12/18/2024 Orders Only [facility] MEDICINE [address] [place] [address] Wendy Pang MD Polyarthralgia (Primary Dx); Elevated C-reactive protein (CRP) 12/17/2024 Travel 12/15/2024 Patient Outreach [facility] MEDICINE [address] [place] [address] Wendy Pang MD Care Coordination (CHW outreach for SDOH PT-1 and food needs-referral completed /) 12/14/2024 Telephone [facility] MEDICINE [address] [place] [address] Wendy Pang MD pt1 from Last 3 Months Immunizations Immunization Administration [...] Description 03/18/2025 11:30 AM EDT Office Visit [facility] MEDICINE [address] [place] [address] Wendy Pang MD [address] [place] [address] Health Maintenance Due Date Last Done Comments [...] 01/09/2024, 12/18, 12/12/2022 Pap Smear 02/10/2025 01/09/2024, 2 09/2023, 12/12/2022 Mammogram 02/26/2025 02/27/2024, 06/0 12/2022, 01/21/2023 [...] Results * (ABNORMAL) Sed Rate by Modified Tristianergren (01/22/2025 12:19 PM EDT) Erythrocyte Sedimentation Rate 28(H) 0 - 20 MM/HR [facility] Comment:Patients with polycy themia and many hemoglobin abnormalitiesmay have depressed sed rates whereas patients with anemiamay have elevated sed rates. Blood Venous blood specimen / Unknown 01/22/2025 12:19 PM EDT 01/22/2025 12:19 PM EDT us Wendy Vance MD LAB BLOOD ORDERAB LES Final Result [facility] [address] [place] [phone] * (ABNORMAL) C-reactive Protein (01/22/2025 12:19 PM EDT) C Reactive Protein 1.61(H) < or = 0.50 mg/dL [facility] Blood Venous blood specimen / Unknown 01/22/2025 12:19 PM EDT 01/22/2025 12:19 PM EDT us Wendy Vance MD LAB BLOOD ORDERAB LES Final Result Performing Organization Address [facility] Co de Phone Number [facility] [address] [place] [phone] * TSH (01/22/2025 12:19 PM EDT) Thyroid Stimulating Hormone 0.62 0.32 - 4.0 uIU/mL [facility] Comment:TSH 3rd Generation ( [facility]) Blood Venous blood specimen / Unknown 01/22/2025 12:19 PM EDT 01/22/2025 12:19 PM EDT Wendy Vance MD LAB BLOOD ORDERAB LES Final Result Performing Organization Address [facility] Co de Phone Number [facility] [address] [place] [phone] * T4, Free (01/22/2025 12:19 PM EDT) Pathologist [facility] Free T4 (Free Thyroxine) 1.26 0.71 - 1.85 ng/dL [facility] Blood Venous blood specimen / Unknown 01/22/2025 12:19 PM EDT 01/22/2025 12:19 PM EDT us Wendy Vance MD LAB BLOOD ORDERAB LES Final Result Performing Organization Address [facility] Co de Phone Number [facility] [address] [place] [phone] * (ABNORMAL) Creatine Kinase, Total (01/22/2025 12:19 PM EDT) Pathologist [facility] Creatine Kinase Total 520(H) 26 - 140 U/L [facility] Blood Venous blood specimen / Unknown 01/22/2025 12:19 PM EDT 01/22/2025 12:19 PM EDT Wendy Vance MD LAB BLOOD ORDERAB LES Final Result Performing Organization Address [facility] Co de Phone Number [facility] [address] [place] [phone] * Lipid Panel, Standard (01/22/2025 12:19 PM EDT) Triglycerides 101 <150 mg/dL [facility] Comment:Desirable Triglyceri de: less than 150 mg/dLBorderline High Triglyceride 150-199 mg/dLHigh Triglyceride: 200-499 mg/dLVery High Triglyceride: greater than or equal to 5OO mg/dL Cholesterol 159 <200 mg/dL [facility] Comment:Desirable Cholestero l: less than 200 mg/dLBorderline High Cholesterol: 200-239 mg/dLHigh Cholesterol: greater than 239 mg/dL LDL Cholesterol Calculated 97 <100 mg/dL [facility] Comment:Desirable LDL: less than 100 [...] ORDERAB LES Final Result Performing Organization Address [facility] Co de Phone Number [facility] [address] [place] [phone] * (ABNORMAL) Comprehensive Metabolic Panel (01/22/2025 12:19 PM EDT) Sodium 143 135 - 145 mmol/L [facility] Potassium 4.3 3.3 - 5.1 mmol/L [facility] Comment:Slight Hemolysis.Int erpret result with caution. Chloride 110(H) 96 - 108 mmol/L [facility] Carbon Dioxide 26 22 - 29 mmol/L [facility] Anion Gap 11(L) 12 - 20 [facility] Urea Nitrogen (BUN) 16 9 - 16 mg/dL [facility] Creatinine, Serum 0.67 0.5 - 1.4 mg/dL [facility] Estimated Glomerular Filt Rate >60 [facility] Comment:Chronic Kidney Disea se: Estimated GFR < 60 mL/min/1.46t5Daviwd Kidney Disease: Estimated GFR < 15 mL/min/1.73m2 Glucose 82 60 - 115 mg/dL [facility] Calcium 9.6 8.4 - 10.2 mg/dL [facility] Bilirubin, Total 0.4 0.0 - 1.0 mg/dL [facility] Aspartate Amino Transferase 47(H) 5 - 31 U/L [facility] Comment:Slight Hemolysis.Int erpret result with caution. Alanine Aminotransferase 38(H) 0 - 31 U/L [facility] Total Protein 8.0 6.5 - 8.0 g/dL [facility] Albumin Level 4.4 3.5 - 5.0 g/dL [facility] Alkaline Phosphatase 70 39 - 117 U/L [facility] Blood Venous blood specimen / Unknown 01/22/2025 12:19 PM EDT 01/22/2025 12:19 PM EDT us Wendy Vance MD LAB BLOOD ORDERAB LES Final Result [facility] [address] [place] [phone] * Helicobacter pylori, Urea Breath Test (01/22/2025 12:00 PM EDT) H. pylori Breath Test Positive Negative [facility] Comment:Antimicrobials, prot on pump inhibitors and bismuthpreparations are known to suppress H. pylori. Ingestingthese medications within two weeks prior to performing thebreath test may produce negative test results. A positiveresult is still clinically valid. 01/22/2025 12:0 0 PM EDT 01/22/2025 3:20 PM EDT us Generic External Data Provider LAB BODY FLUIDS A ND STOOLS ORDERABLES Final Result [facility] [address] [place] [phone] * CT Abdomen Pelvis w/ Contrast (01/08/2025 10:50 AM EDT) Anatomical Region Laterality Modality Body, Pelvis, Abdomen Computed T omography 01/08/2025 10:5 0 AM EDT Narrative 01/08/2025 10:51 AM EDT [address] [address] [address] Scan Report Signed Patient: Jocelin Auguste R#: [id number] : 1970 Acct:[id number] Age/Sex: 54 / F ADM Date: 01/07/25 Loc: HO.CT Attending Dr: Wendy Vance MD Ordering Physician: Wendy Pang MD Date of Service: 01/07/25 Procedure(s): CT abdomen pelvis w IV con Accession Number(s): [id number] cc: Wendy Pang MD Report Number: [id number]: Total DLP = 587.00 mGy-cm CLINICAL HISTORY: atypical lymph node present in sperior peripancreatic region CT abdomen and pelvis with contrast Comparison: [place]/SR - US ABDOMEN LIMITED - 01/28/24 10:26 [...] 01/08/25 1051 DD/ 1050 TD/TT: 01/08/25 1050 Security Operations Analyst: Procedure Note Donotuseinterpreter, Image - 01/08/[address] [place] [address] [address] Scan Report Signed Patient: Jo Auguste R#: [id number] : 1970Acct:[id number] Age/Sex: 54 / FADM Date: 01/07/25 Loc: HO.CT Attending Dr: Wendy Vance MD Ordering Physician: Wendy Pang MD Date of Service: 01/07/25 Procedure(s): CT abdomen pelvis w IV con Accession Number(s): [id number] cc: Wendy Pang MD Report Number: [id number]: Total DLP = 587.00 mGy-cm CLINICAL HISTORY: atypical lymph node present in sperior peripancreaticregion CT abdomen and pelvis with contrast Comparison: [place]/SR - US ABDOMEN LIMITED - 01/28/24 10:26 [...] 01/08/25 1051 DD/ 1050 TD/TT: 01/08/25 1050 Security Operations Analyst: Wendy Vance MD IMG CT PROCEDURES Final Result * POCT Creatinine GFR (01/07/2025 11:33 AM EDT) POCT Creatinine 0.7 0.5 - 1.4 mg/dL [facility] GFR POC >60 [facility] Comment:Chronic Kidney Disea se: Estimated GFR < 60 mL/min/1.82f4Ldycdt Kidney Disease: Estimated GFR < 15 mL/min/1.73m2 01/07/2025 11:3 3 AM EDT 01/07/2025 3:17 PM EDT Narrative [facility] - 01/07/2025 3:20 PM EDT [id number] us Wendy Vance MD LAB POINT OF CARE TEST DOCKED DEVICE ORDERABLES Final Result [facility] [address] [place] [phone] * Albumin, Random Urine W/Creatinine (06/12/2024 11:40 AM EDT) Creatinine, Urine 195.62 mg/dL [facility] Microalbumin Urine 41.0 mg/L [facility] Microalbum Creatinine Ratio Ur 20.9 <30 ug/mg cr [facility] Comment:Albumin/Creatinine R atio Reference Ranges: Normal: < 30 ug/mg creatinine Microalbuminuria: 30 - 300 ug/mg creatinineClinical Albuminuria: > 300 ug/mg creatinine Urine (Urine, Random) 06/12/2024 11:40 AM EDT 06/12/2024 1:08 PM EDT Wendy Vance MD LAB URINE ORDERAB LES Final Result [facility] [address] [place] [phone] * Hepatitis C Antibody with Reflex to HCV, RNA, Quantitative, Real-Time PCR (06/12/2024 11:39 AM EDT) Hepatitis C Antibody Nonreactive Nonreactive [facility] Comment:Antibodies to HCV no t detected; does not exclude early acuteHCV infection. Blood Venous blood specimen / Unknown 06/12/2024 11:39 AM EDT 06/12/2024 1:19 PM EDT us Wendy Vance MD LAB BLOOD ORDERAB LES Final Result Performing Organization Address [facility] Co de Phone Number [facility] [address] [place] [phone] * HIV-1/2 Antigen and Antibodies, Fourth Generation, with Reflexes (06/12/2024 11:39 AM EDT) Pathologist [facility] HIV AB/AG Nonreactive Nonreactive [facility] Comment:HIV-1 p24 Ag and/or HIV-1/HIV-2 Ab not detected.A test result that is nonreactive does not exclude thepossibility of exposure to or infection with HIV-1 and/orHIV-2. Nonreactive results in this assay for individualswith prior exposure to HIV-1 and/or HIV-2 may be due toantigen and antibody levels that are below the limit ofdetection of this assay.The [employer] HIV Ag/Ab Combo assay result andsupplemental assay results should be interpreted inconjunction with the patient's clinical presentation,history and other laboratory results. If the results areinconsistent with clinical evidence, additional testing issuggested to confirm the result. Blood Venous blood specimen / Unknown 06/12/2024 11:39 AM EDT 06/12/2024 1:19 PM EDT us Wendy Vance MD LAB BLOOD ORDERAB LES Final Result Performing Organization Address [facility] Co de Phone Number [facility] [address] [place] [phone] * Hemoglobin A1c (06/12/2024 11:39 AM EDT) Hemoglobin A1c 5.7 <6.0 % [facility] Comment:Hemoglobin A1C Refer ence Range Adults: 4.8 - 6.0 % Non diabetic: < 6.0 % Goal: < 7.0 %Additional Action Suggested: > 8.0 %Note: Hemoglobin A1c results are invalid for patients with abnormal amounts of HbF. Blood transfusions may impact the HbA1c concentration in the patient sample. Estimated Average Glucose 117 mg/dL [facility] Comment:eAG = Estimated ave rage glucose which is %A1C expressed asaverage glucose, using the formula of the N7O-McarqndDdhszar Glucose study (ADAG), Diabetes Care, Vol.31,#8,Mar. 2007 Blood Venous blood specimen / Unknown 06/12/2024 11:39 AM EDT 06/12/2024 1:19 PM EDT us Wendy Vance MD LAB BLOOD ORDERAB LES Final Result Performing Organization Address [facility]/State/ZIP Co de Phone Number [facility] [address] [place] [phone] * BI Mammogram Screening Tomosynthesis Bilateral (02/27/2024 11:03 AM EDT) Anatomical Region Laterality Modality Breast Bilateral Mammography 02/27/2024 11:0 3 AM EDT Narrative 03/23/2024 10:37 PM EDT [facility] [address] [place] [address] Mammography Report Signed Patient: Jocelin Auguste#: [id number] : 1970 Acct:[id number] Age/Sex: 53 / F ADM Date: 02/27/24 Loc: [facility] Attending Dr: Ronni Bautista MD Ordering Physician: Ronni Bautista MD Results: 1Negativ e Date of Service: 02/27/24 Follow Up: 1 Year From Orig inal Mammogram Procedure(s): MM tomosynthesis screening BI Accession Number(s): [id number] cc: Wendy Pang MD; Ronni Bautista MD [...] MD in OV> 03/23/242232 DD/ 1103 TD/TT: Security Operations Analyst: Procedure Note Donotuseinterpreter, Image - 03/23/[facility] [address] [place] [address] Mammography Report Signed Patient: Jo Auguste R#: [id number] : 1970Acct:[id number] Age/Sex: 53 / FADM Date: 02/27/24 Loc: [facility] Attending Dr: Ronni Bautista MD Ordering Physician: Ronni Bautista MDResults: 1Negativ e Date of Service: 02/27/24Follow Up: 1 Year From Orig inal Mammogram Procedure(s): MM tomosynthesis screening BI Accession Number(s): [id number] cc: Wendy Pang MD; Ronni Bautista MD [...] MD in OV> 03/23/243 DD/ 1103 TD/TT: Security Operations Analyst: [facility] External Provider IMG BI PROCEDURES [...] Most Recently Relevant to Health Maintenance [place] [address] [place] [address] STANDARD Care Teams Marketing Production Specialist Relationship Specialty Start Date End Date Wendy Pang MD [address] [place] [address] PCP - General Internal Medicine 02/23/23
[2025-03-11 08:53] VITALS: BP 140/96; PULSE 86; RESP 18; O2SAT 98
--- NOTE | 2025-03-11 08:53 | MHC.OFFVIS ---
Vital Signs 03/11/25 08:53 Weight 199 lb BP 140/96 H Blood Pressure Location Lt brachial Position Sitting Respiration 18 Pulse 86 Pulse Source Pulse Oximeter Pulse Oximetry (%) 98 Oxygen Delivery Method Room Air Intake Visit Reasons: FU after PT/no shoed 02/04 Clinical Services Manager Required: Yes Clinical Services Manager Name: FAMILY Allergies No Known Allergies Allergy (Verified 01/22/25 10:02) HPI Comments Details: Jocelin is back in my office after several rescheduling of her appointment. She is very pleasant 54 years old Hungarian-speaking female who presents in my office with complains on widespread pain. Family member was with us during today's visit and helped us to maintain this conversation in Hungarian. She reports pain in the bilateral shoulders bilateral arms bilateral lower back. She reports her pain today 7/10. Last time she reported pain 10/10. She reports that her pain is constant in nature. The pain is most severe in the morning and during the day. She was diagnose with fibromyalgia. Last time we agreed that she will contact her psychiatrist and discuss starting her on Savella /milnacipran and terminating prescription of duloxetine. I also send her for physical therapy. She did not do neither of those tasks. I gave her today a page of milnacipran Savella and told her to bring this page to her psychiatrist. If her psychiatrist will stop her medication I will start her on escalation of milnacipran. She also did not go for physical therapy. I will renew the order for physical therapy. In the order for me to perform injections to help her pain she needs to complete at least 6 weeks of physical therapy and home exercise program. [facility] Medical History Pelvic pain Cervical high risk HPV (human papillomavirus) test positive Vaginal discharge Postop check Fibromyalgia Osteoarthritis Polyarthralgia Post traumatic stress disorder Constipation Cervical disc disease Generalized anxiety disorder Mixed hyperlipidemia Type 2 diabetes mellitus HTN (hypertension) Tachycardia Sleep apnea LGSIL on Pap smear of cervix Surgical History Hx of tubal ligation Hx of section Social History Alcohol intake: never Patient Tobacco Use Status: Never used Tobacco Female Reproductive History Menstrual Age of Menarche: 12 Review of Systems Const All systems reviewed & are unremarkable except as noted in HPI and below Physical Exam Vital Signs: Last Vital Signs Pulse 86 03/11/25 08:53 Resp 18 03/11/25 08:53 BP 140/96 H 03/11/25 08:53 Pulse Ox 98 03/11/25 08:53 Oxygen Delivery Method Room Air 03/11/25 08:53 Physical Examination CONSTITUITIONAL Patient alert and cooperative. Well appearing and in no apparent painful distress HEENT Conjunctiva and sclera clear. ?Pupils equal round and reactive to light. ?No lymphadenopathy. ?Normal dentition. No oral or nasal ulcers noted. No evidence of discoid rash to the kev of ears CHEST/RESPIRATORY SYSTEM Normal respiratory effort and able to speak in complete sentences. ?Clear to auscultation bilaterally. ?No crackles, rales, rhonchi, wheezes heard. CARDIAC SYSTEM Regular rate and rhythm. ?S1 and S2 heard no murmurs. 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 ?Heberden's and Kala's nodes noted. ?No synovitis noted to the MCPs, PIPs or DIPs. ?No tenderness to palpation of these joints. Wrists: ?Full range of motion at the wrists without pain. ?No tenderness to palpation or synovitis noted to the wrists. Elbows: Full range of motion without pain. No tenderness, weakness, swelling, increased warmth or erythema. Shoulders: Full range of motion without pain. No tenderness, weakness, swelling, increased warmth or erythema. Hips: Full range of motion without pain. Hip bursa: No tenderness to palpation Knees: ?Full range of motion. ?No tenderness, swelling, increased warmth or erythema.? Bilateral crepitations Ankles: Full range of motion. ?No tenderness, swelling, increased warmth or erythema.? Feet: ?Negative squeeze test. ?No tenderness to palpation or swelling of the MTPs. Tender points:? Tenderness to palpation of the neck, shoulders, chest, elbows, hips, buttocks or knees. SKIN Skin intact without rashes. Back/Spine/Pelvis Other: Flexing forward and flexing backwards both aggravate the pain of the patient however she reports that flexing backwards aggravate her pain more than flexing forward. There is tenderness on palpation in bilateral paraspinal spinal region most lower portion of the lumbar spine. Assessment & Plan Assessment & Plan (1) Osteoarthritis: Code(s): M19.90 - Unspecified osteoarthritis, unspecified site Category: Medical Qualifiers: Osteoarthritis location: multiple joints Osteoarthritis type: primary Qualified Code(s): M15.0 - Primary generalized (osteo)arthritis (2) Fibromyalgia: Code(s): M79.7 - Fibromyalgia Category: Medical (3) Chronic pain syndrome: Code(s): G89.4 - Chronic pain syndrome Category: Medical Plan This patient is suffering from fibromyalgia and widespread osteoarthritis. She did not follow-up on her physical therapy order, she did not go for physical therapy. I will enter today order for physical therapy in our physical therapy office. I told her that if she does not hear anything from physical therapy in 5 days she needs to contact this office and get connected with physical therapy to schedule 1st appointment. I also discussed with the patient possibility of treating her pain with milnacipran/Savella. She needs to discuss the situation with psychiatrist and possibility of stopping her duloxetine. After she completes physical therapy we can address her pain with interventional pain management. Interventional pain management could be started by medial branch blocks L3-L4 does ramus L5 bilateral diagnostic. Sprint PNS could be employed or RFA could be performed on this patient if medial branch block will alleviate pain in her back. We can also try knee steroid injections and other applications of interventional pain management to treat her pain in the knees. The same thing could be tried for her shoulder pain. Orders: Orders PT Evaluation and Treatment Today G89.4 - Chronic pain syndrome, M15.0 - Primary generalized (osteo)arthritis, M79.7 - Fibromyalgia Patient Instructions: I hereby testify that I spent 30 minutes in conversation with this patient as well as planning her care and organizing this note. Coding Level of Care Code Est Pt Level 4 (97018) Diagnoses Primary osteoarthritis involving multiple joints M15.0 Osteoarthritis location: multiple joints Osteoarthritis type: primary Fibromyalgia M79.7 Chronic pain syndrome G89.4
== END 2025-03-11 09:33 | disposition home or self-care (01) ==
LOC: HO.PMC 08:28
PROVIDERS: PCP Student in an Organized Health Care Education/Training Program; Visit Provider Anesthesiology
DX: M15.0 Primary generalized (osteo)arthritis (principal); M79.7 Fibromyalgia; G89.4 Chronic pain syndrome
CPT/HCPCS: 99214

== ENCOUNTER → 2025-03-11 08:28 | Outpatient (BNVA) | payer MEDICAID, SELFPAY | PROVIDERS: PCP Student in an Organized Health Care Education/Training Program; Visit Provider Anesthesiology | DX: M15.0 Primary generalized (osteo)arthritis (principal); M54.50 Low back pain, unspecified; G89.4 Chronic pain syndrome; M79.7 Fibromyalgia | CPT/HCPCS: 99212 ==

== ENCOUNTER 2025-03-19 11:09 | Outpatient (REF) | payer MEDICAID, SELFPAY ==
--- OUTSIDE RECORDS SUMMARY | 2025-03-19 11:18 | XMS_ITS | Patient Health Record ---
Author Organization [facility] enter Address [address] [place] [address] Care Team Providers Care Mill Washer Name Role Phone Michael Muller Primary Care [...] Problem Status W/U Status Risk Notes Problem 27534917 Cervicalgia (M54.2) Active confirmed Problem 32545141998003 Morbid (severe) obesity due to excess calories (E66.01) Active confirmed Problem 639241225 Acquired hypothyroidism (E03.9) Active confirmed Problem 41639435 Hyperlipidemia, unspecified hyperlipidemia type (E78.5) Active confirmed Problem [id number] Type 2 diabetes mellitus without complication, without long-term current use of insulin (E11.9) Active confirmed Problem 46505610 Dysphagia, unspecified type (R13.10) Active confirmed Problem 185973638 Depression with anxiety (F41.8) Active confirmed Problem 52839298 Sleep apnea, unspecified type (G47.30) Active confirmed Problem 314933176 History of asthm a (Z87.09) Active confirmed Problem 005455780 Ear itch (L29.9) Active confirmed Problem 651595399 History of sleep apnea (Z86.69) Active confirmed Problem 877547651 Body mass index [BMI] 40.0-44.9, adult (Z68.41) [...] End Date NICOLETTE Lynch [address] [place], [place] [id number] [phone] [id number] Jocelin Talley Self - patient is the insured DENTAL Medicaid HP [address] [place] [address] [id number] Jocelin Talley Self - patient is the insured Medical (General) History Surgical History Surgery Date(Month/Year) c section x 3 bilat tubal Hospitalization History Reason Date(Month/Year) see surgical
[2025-03-19 12:44] LABS: Appearance Urine Clear; Glucose Urine UA Negative (Negative); PH 5.5 (5.0-9.0); Specific Gravity - Urine >= 1.030 (1.005-1.025)
[2025-03-23 18:03] LABS: Prot Elec - Albumin 4.2 g/dL (3.8-4.8); Prot Elec - Alpha1 0.3 g/dL (0.2-0.3); Prot Elec - Alpha2 0.8 g/dL (0.5-0.9); Prot Elec - Beta 1 0.4 g/dL (0.4-0.6); Prot Elec - Beta 2 0.5 g/dL (0.2-0.5); Prot Elec - Gamma 1.1 g/dL (0.8-1.7); Prot Elec - Total Protein 7.3 g/dL (6.1-8.1)
[2025-03-24 14:04] LABS: MDA5 Ab <11 SI (<11); NXP-2 (MJ) Ab <11 SI (<11); SRP Ab <11 SI (<11)
== END 2025-03-19 11:10 | disposition home or self-care (01) ==
LOC: HO.HHCL 11:09
PROVIDERS: PCP Student in an Organized Health Care Education/Training Program; Visit Provider Student in an Organized Health Care Education/Training Program
DX: R74.8 Abnormal levels of other serum enzymes (principal); G62.9 Polyneuropathy, unspecified; Z01.84 Encounter for antibody response examination
CPT/HCPCS: 36415; 81001; 82085; 82550; 83615; 84165; 84182; 86235

== ENCOUNTER 2025-04-01 13:26 | Outpatient (REF) | payer MEDICAID, SELFPAY ==
--- NOTE | 2025-04-01 13:31 | EMG_ITS ---
Chief complaint: Reports pain and numbness down right thigh especially with prolonged walking or standing. Bilateral feet numbness. Neck pain. Back pain. Denies numbness in both upper extremities/hands. History of diabetes. Found to have elevated CK, ESR and CRP. Reason for referral: Evaluate for myopathy Referred by: Dr. Wendy Vance Procedure done: upper and lower extremities NCS/EMG Precautions and/or limitations: None The limb temperature was monitored continuously and remained between 32-36 degrees C during the performance of the NCS. Nerve Conduction Studies Anti Sensory Summary Table ?Stim Site NR Onset (ms) Norm Onset (ms) Peak (ms) Norm Peak (ms) O-P Amp (?V) Norm O-P Amp Site1 Site2 Delta-0 (ms) Dist (cm) Az (m/s) Norm Az (m/s) Left Median Anti Sensory (2nd Digit) Wrist ? 3.4 4.5 <3.6 22.2 >10 Wrist 2nd Digit 3.4 14.0 41 Right Median Anti Sensory (2nd Digit) Wrist ? 3.9 5.1 <3.6 37.2 >10 Wrist 2nd Digit 3.9 14.0 36 Right Radial Anti Sensory (Thumb) Forearm ? 1.9 2.4 <3.1 18.7 Forearm Thumb 1.9 0.0 Left Sural Anti Sensory (Lat Mall) Calf ? 2.9 3.8 <4.0 9.4 >5.0 Calf Lat Mall 2.9 14.0 48 Right Sural Anti Sensory (Lat Mall) Calf ? 3.2 3.8 <4.0 22.2 >5.0 Calf Lat Mall 3.2 14.0 44 Left Ulnar Anti Sensory (5th Digit) Wrist ? 2.9 3.8 <3.7 13.8 >15.0 Wrist 5th Digit 2.9 14.0 48 Right Ulnar Anti Sensory (5th Digit) Wrist ? 2.4 3.3 <3.7 19.4 >15.0 Wrist 5th Digit 2.4 14.0 58 Motor Summary Table ?Stim Site NR Onset (ms) Norm Onset (ms) O-P Amp (mV) Norm O-P Amp iAmp (mV) Amp (1st) (%) Site1 Site2 Delta-0 (ms) Dist (cm) Az (m/s) Norm Az (m/s) Left Median Motor (Abd Poll Brev) Wrist ? 4.2 <3.9 10.5 >4.5 12.2 100.0 Elbow Wrist 4.0 20.0 50 >45 Elbow ? 8.2 10.6 12.5 101.0 Right Median Motor (Abd Poll Brev) Wrist ? 5.2 <3.9 11.2 >4.5 13.3 100.0 Elbow Wrist 3.8 19.0 50 >45 Elbow ? 9.0 10.3 12.2 92.0 Right Peroneal Motor (Ext Dig Brev) Ankle ? 4.0 <4.0 5.1 >2.5 6.5 100.0 Ankle Ext Dig Brev 4.0 0.0 B Fib ? 10.5 5.2 6.5 102.0 B Fib Ankle 6.5 27.5 42 >40 Poplt ? 11.4 5.2 6.4 102.0 Poplt B Fib 0.9 5.0 56 >40 Left Tibial Motor (Abd Rouse Brev) Ankle ? 4.5 <5 9.2 >2.5 12.4 100.0 Ankle Abd Rouse Brev 4.5 0.0 Knee ? 13.1 5.8 7.8 63.0 Knee Ankle 8.6 36.0 42 >40 Right Tibial Motor (Abd Rouse Brev) Ankle ? 4.4 <5 7.4 >2.5 12.1 100.0 Ankle Abd Rouse Brev 4.4 0.0 Knee ? 12.4 6.3 10.0 85.1 Knee Ankle 8.0 32.0 40 >40 Left Ulnar Motor (Abd Dig Minimi) Wrist ? 3.0 <3.0 8.0 >5 9.9 100.0 B Elbow Wrist 3.2 17.0 53 >45 B Elbow ? 6.2 7.8 9.9 97.5 A Elbow B Elbow 2.0 10.0 50 >45 A Elbow ? 8.2 7.6 9.7 95.0 Right Ulnar Motor (Abd Dig Minimi) Wrist ? 3.0 <3.0 9.3 >5 12.6 100.0 B Elbow Wrist 3.2 17.0 53 >45 B Elbow ? 6.2 9.1 12.3 97.8 A Elbow B Elbow 1.5 10.0 67 >45 A Elbow ? 7.7 8.9 12.2 95.7 EMG ?Side Muscle Nerve Root Ins Act Fibs Psw Amp Dur Poly Recrt Int Pat Comment Right 1stDorInt Ulnar C8-T1 Nml Nml Nml Nml Nml 0 Nml Complete Right FlexCarRad Median C6-7 Nml Nml Nml Nml Nml 0 Nml Complete Right FlexCarpiUln Ulnar C8,T1 Nml Nml Nml Nml Nml 0 Nml Complete Right Biceps Musculocut C5-6 Nml Nml Nml Nml Nml 0 Nml Complete Right Triceps Radial C6-7-8 Nml Nml Nml Nml Nml 0 Nml Complete Right Deltoid Axillary C5-6 Nml Nml Nml Nml Nml 0 Nml Complete Right AbdHallucis MedPlantar S1-2 Nml Nml Nml Nml Nml 0 Nml Complete Right AntTibialis Dp Br Peron L4-5 Nml Nml Nml Nml Nml 0 Nml Complete Right PostTibialis Tibial L5, S1 Nml Nml Nml Nml Nml 0 Nml Complete Right MedGastroc Tibial S1-2 Nml Nml Nml Nml Nml 0 Nml Complete Right VastusMed Femoral L2-4 Nml Nml Nml Nml Nml 0 Nml Complete Left AbdHallucis MedPlantar S1-2 Nml Nml Nml Nml Nml 0 Nml Complete Left AntTibialis Dp Br Peron L4-5 Nml Nml Nml Nml Nml 0 Nml Complete Left PostTibialis Tibial L5, S1 Nml Nml Nml Nml Nml 0 Nml Complete Left MedGastroc Tibial S1-2 Nml Nml Nml Nml Nml 0 Nml Complete Left VastusMed Femoral L2-4 Nml Nml Nml Nml Nml 0 Nml Complete Paraspinal EMG ?Side Muscle Nerve Root Ins Act Fibs Psw Comment Right Cervical Upper Rami Nml Nml Nml Right Cervical Mid Rami Nml Nml Nml Right Cervical Lower Rami Nml Nml Nml Right Lumbar Upper Rami Nml Nml Nml Right Lumbar Mid Rami Nml Nml Nml Right Lumbar Lower Rami Nml Nml Nml Left Lumbar Upper Rami Nml Nml Nml Left Lumbar Mid Rami Nml Nml Nml Left Lumbar Lower Rami Nml Nml Nml FINDINGS: Bilateral median motor nerves showed prolonged distal latency, normal amplitude and normal conduction velocity. Bilateral median sensory nerves showed prolonged peak latency. All other nerves tested were within normal. Concentric needle EMG was performed in selected muscles of the right upper and bilateral lower extremities, cervical and lumbar paraspinals. Study did not reveal signs of electric abnormalities as shown in the table above. No myopathic looking units. IMPRESSION: 1. This is an abnormal study. 2. There is electrodiagnostic evidence for bilateral moderate-severe median neuropathy at the wrist, consistent with Carpal Tunnel Syndrome. 3. There is no electrodiagnostic evidence for ulnar neuropathy, brachial plexopathy, cervical radiculopathy, peroneal neuropathy, tibial neuropathy, lumbosacral plexopathy, lumbar radiculopathy, or peripheral neuropathy. 4. No signs for myopathic disorder. Thank you for your kind referral. Key Brown MD, DAVID Board Certified, [place] [employer] and [employer] (ABPMR) Board Certified, [place] [employer] Electrodiagnostic [employer] (ABEM) CODIN [id number] x 3 MTDD
--- OUTSIDE RECORDS SUMMARY | 2025-04-01 14:18 | XMS_ITS | Clinical Summary ---
Author Organization [employer] Address [address] [place] [address] Care Team Providers Care Manager Channel Name Role Phone Wendy Pang MD Primary Care Pro vider Allergies No known active allergies Medications * This document contains information received from the source organization and may not represent a complete record from that organization. Blood Pressure kit 1 Device Once per day. 1 kit 024 Active ibuprofen 800 MG tablet 800 mg. Active losartan-hydroCHL OROthiazide (Hyzaar) 100-12.5 MG tablet TAKE 1 TABLET BY MOUTH EVERY DAY 90 tablet 3 025 Active traZODone (Desyrel) 50 MG tabletIndications :PTSD (post-traumatic stress disorder) Take 0.5 tablets (25 mg) by mouth at bedtime. May take 1 tablet (50 mg) by mouth at bedtime as needed. 20 tablet 025 Active polyvinyl alcohol (Liquifilm Tears) 1.4 % ophthalmic solutionIndicatio ns:Dry eyes, bilateral Administer 1 drop into both eyes if needed for dry eyes. 15 mL 5 025 Active cetirizine (ZyrTEC) 10 MG tablet TAKE 1 TABLET BY MOUTH EVERY DAY 90 tablet 025 Active levothyroxine (Synthroid) 88 MCG tablet Take 1 tablet (88 mcg) by mouth before breakfast. 30 tablet 3 025 2025 Active DULoxetine (Cymbalta) [address] capsuleIndication s:PTSD (post-traumatic stress disorder) TAKE 1 CAPSULE BY MOUTH TWICE DAILY IN THE MORNING AND IN THE EVENING DO NOT BREAK, CRUSH, DISSOLVE OR CHEW 60 capsule 2 025 Active pregabalin (Lyrica) 150 MG capsuleIndication s:Polyarthralgia Take 1 capsule (150 mg) by mouth 2 times daily. 60 capsule 2 025 2025 Active Tirzepatide-Weigh t Management (Zepbound) 15 MG/0.5ML solution auto-injector Inject 0.5 mL (15 mg) under the skin 1 (one) time per week. 6 mL 3 025 2025 Active melatonin 5 MG tablet Take 1 tablet (5 mg) by mouth at bedtime. 90 tablet 025 2025 Active ezetimibe (Zetia) 10 MG tablet Take 1 tablet (10 mg) by mouth Once per day. 90 tablet 025 2025 Active atorvastatin (Lipitor) 20 MG tabletIndications :Mixed hyperlipidemia TAKE 1 TABLET BY MOUTH EVERY DAY 90 tablet 3 025 2024 Discontinued(O ther) fluticasone (Flonase) 50 MCG/ACT nasal sprayIndications: Unspecified Eustachian tube disorder, left ear Administer 2 sprays into each nostril Once per day. Shake gently. Before first use, prime pump. After use, clean tip and replace cap. 16 g 2 025 2024 Discontinued(O ther) pregabalin (Lyrica) 150 MG capsuleIndication s:Polyarthralgia Take 1 capsule (150 mg) by mouth 2 times daily. 60 capsule 2 025 2024 Discontinued(R eorder (will not trigger notification to Pharmacy)) levothyroxine (Synthroid, Levoxyl) 88 MCG tablet TAKE 1 TABLET BY MOUTH EVERY MORNING BEFORE BREAKFAST 30 tablet 025 2024 Discontinued(O ther) DULoxetine (Cymbalta) [address] capsuleIndication s:PTSD (post-traumatic stress disorder) Take 1 capsule (30 mg) by mouth 2 times daily. Do not crush or chew. 60 capsule 1 025 2024 Discontinued Tirzepatide-Weigh t Management (Zepbound) 12.5 MG/0.5ML solution auto-injector Inject 0.5 mL (12.5 mg) under the skin 1 (one) time per week. 2 mL 025 2024 Discontinued(O ther) Active Problems Problem Noted Date Diagnosed Date Weakness generalized 03/22/[address] of the abdomen 01/13/2025 Neck [...] of migraines, was receiving a medication from [place], not sure of the name Will start [...] (Eric Ruff) and has a therapist in [place] (agency unknown). Pt will continue current MH [...] (Eric Ruff) and has a therapist in [place] (agency unknown). Pt will continue current treatment [...] organization. Date Type Department Care Team Description 03/30/2025 Telephone [facility] [address] [place] [address] Wendy Pang MD Durable Medical Equipment 03/25/2025 Orders Only [facility] [address] [place] [address] Wendy Pang MD 03/25/2025 Orders Only [facility] [address] [place] [address] ProviderMychal MD 03/24/2025 Orders Only [facility] [address] [place] [address] Wendy Pang MD Mixed hyperlipidemia (Primary Dx) 03/24/2025 Orders Only [facility] [address] [place] [address] Wendy Pang MD 03/22/[address] [address] Wendy Pang MD Durable Medical Equipment 03/19/2025 Results Follow-Up [address] [address] Wendy Pang MD Urinalysis Complete, Creatine Kinase, Total, Lactate Dehydrogenase (LD), Additional followed-up results: 3 03/19/[address] [address] Wendy Pang MD Prior Authorization 03/18/2025 11:30 AM EDT Office Visit [address] [address] Wendy Pang MD Pulsatile tinnitus of both ears (Primary Dx); Prediabetes; Primary hypertension; Mixed hyperlipidemia; Class 2 severe obesity due to excess calories with serious comorbidity and body mass index (BMI) of 39.0 to 39.9 in adult ([facility]); Transaminitis; Health care maintenance; Fibromyalgia; Bilateral carpal tunnel syndrome; Leg mass, left; Weakness generalized 03/18/2025 Travel 03/17/[address] [address] Wendy Pang MD chart prep 03/16/2025 Orders Only [facility] [address] [place] [address] Wendy Pang MD 03/16/[address] [address] Wendy Pang MD Polyarthralgia 03/15/2025 Results Follow-Up [facility] [address] [place] [address] Wendy Pang MD BI Mammogram Screening Tomosynthesis Bilateral 03/15/2025 Refill [facility] [address] [place] [address] Wendy Pang MD Polyarthralgia 03/12/2025 Refill [facility] [address] [place] [address] Wendy Pang MD Polyarthralgia 03/12/2025 Refill [facility] [address] [place] [address] Anita Oliva MD PTSD (post-traumatic stress disorder) 03/04/2025 Orders Only [facility] [address] [place] [address] Wendy Pang MD 02/26/2025 Patient Outreach [facility] [address] [place] [phone] Wendy Pang MD Care Coordination (CH[facility] outreach for SDOH PT-1 and food needs-referral completed /) 02/26/2025 Telephone [facility] [address] [place] [address] Wendy Pang MD PT1 02/23/2025 Orders Only [facility] [address] [place] [address] Wendy Pang MD Chronic bilateral low back pain with bilateral sciatica (Primary Dx) 02/22/2025 Telephone [facility] [address] [place] [address] Wendy Pang MD Referral 02/18/2025 Refill [facility] [address] [place] [address] Lana Obrien, RITA Unspecified Eustachian tube disorder, left ear 02/17/2025 Orders Only [facility] [address] [place] [address] Wendy Pang MD 02/17/2025 Refill [facility] [address] [place] [address] Anita Oliva MD 01/25/2025 Results Follow-Up [facility] [address] [place] [address] Wendy Pang MD T4, Free, TSH, Comprehensive Metabolic Panel, Lipid Panel, Standard 01/25/2025 Results Follow-Up [facility] [address] [place] [address] Wendy Pang MD Helicobacter pylori, Urea Breath Test 01/25/2025 Orders Only [facility] [address] [place] [phone] Wendy Pang MD Elevated CPK (Primary Dx); Neuropathy 01/22/2025 Orders Only GENERIC EXTERNAL DATA DEPARTMENT Provider, Generic External Data 01/22/2025 Refill [facility] [address] [place] [address] Wendy Pang MD PTSD (post-traumatic stress disorder) 01/21/2025 10:30 AM EDT Telemedicine [facility] [address] [place] [phone] Mel Amezcua, PharmD Hypothyroidism, unspecified type (Primary Dx); Primary hypertension; Mixed hyperlipidemia 01/21/2025 Refill [facility] [address] [place] [address] Wendy Pang MD 01/20/2025 Refill [facility] [address] [place] [address] Wendy Pang MD 01/20/2025 Refill [facility] [address] [place] [address] Wendy Pang MD 01/20/2025 Refill [facility] [address] [place] [address] Gladys Cee MD 01/15/2025 Telephone [facility] [address] [place] [address] Wendy Pang MD Durable Medical Equipment 01/13/2025 11:30 AM EDT Office Visit [facility] [address] [place] [address] Wendy Pang MD Hypothyroidism, unspecified type (Primary Dx); Polyarthralgia; Class 2 severe obesity due to excess calories with serious comorbidity and body mass index (BMI) of 39.0 to 39.9 in adult ([facility]); Chronic pain of left knee; Primary hypertension; Pulsatile tinnitus of both ears; Health care maintenance; Generalized anxiety disorder; Arthritis of knee; Fibromyalgia; Neck pain; Bilateral carpal tunnel syndrome; Leg mass, left; Abnormal CT of the abdomen 01/13/2025 Travel 01/12/2025 Telephone [facility] [address] [facility] [place] [address] Wendy Pang MD Chart Prep 01/12/2025 Refill [facility] [address] [facility] [place] [address] Wendy Pang MD 01/08/2025 Results Follow-Up [facility] [address] [facility] [place] [address] Abdomen Pelvis w/ Contrast 01/07/2025 Orders Only [facility] [place] [address] Wendy Pang MD 01/07/2025 Refill [facility] [address] [facility] [place] [address] Wendy Pang MD Type 2 diabetes mellitus without complication, without long-term current use of insulin ([facility]) from Last 3 Months Immunizations Immunization Administration [...] Sign Reading Time Taken Comments Blood Pressure 130/82 03/18/2025 11:33 AM EDT Pulse 86 03/18/2025 11:33 AM EDT Temperature 36.3 C (97.3 F) 03/18/2025 11:33 AM EDT Respiratory Rate 14 03/18/2025 11:3 3 AM EDT Oxygen Saturation 98% 03/18/2025 11: 33 AM EDT Inhaled Oxygen Concentration - - Weight 88.4 kg (194 lb 12.8 oz) 025 11:33 AM EDT Height 154.9 cm (5' 1 ) 03/18/2025 11:3 3 AM EDT Body Mass Index 36.81 03/18/2025 11:33 AM EDT Plan of Treatment Upcoming Encounters Date Type Department Care Team (Late st Contact Info) Description 05/19/2025 9:45 AM EDT Office Visit [facility] [address] [place], [place] [phone] Wendy Pang MD [address] [place], [place] [phone] Health Maintenance Due Date Last Done Comments CT Colonography 1970 FIT DNA/Cologuard 1970 FIT 1970 FOBT 1970 Sigmoidoscopy 1970 Diabetes: Foot Exam 1980 Pneumococcal Vaccine: 50+ Years (1 of 2 - PCV) 1989 Colonoscopy 01/09/2024 Colorectal Cancer Screening 01/09/2024 COVID-19 Vaccine ( - season) 2024 Hepatitis B Vaccines (2 of 3 - 19+ 3-dose series) 03/22/2025 02/22/2025 Influenza Vaccine (#1) 2025 06/16/2024 Depression Monitoring 05/22/2025 11/20/2024, 025 Diabetes: Urine Protein Screening 06/12/2025 06/12/2024 Diabetes: Hemoglobin A1C 09/18/2025 025, 06/12/2024, 12/30/2023 Alcohol/Substance Use Screening 11/20/2025 11/20/2024 Disability Screening 11/20/2025 11/20/2024 Cervical Cancer Screening 01/04/2026 HPV/Cotest 01/04/2026 01/09/2024, 12/18, 12/12/2022 Pap Smear 01/04/2026 01/04/2025, 12/18, 01/08/2024, Additional history exists SDOH Screening 01/13/2026 01/13/2025 Lipid Panel 01/22/2026 01/22/2025, 06/12/2024 Mammogram 03/04/2026 03/04/2025, 02/16, 01/21/2023, Additional history exists Tobacco Screening 03/18/2026 03/18/2025 Eye Exam 12/01/2026 12/01/2024, 11/17, 12/01/2024, Additional [...] Procedure Name Priority Date/Time Associated Diagnosis Comments PROTEIN, TOTAL AND PROTEIN ELECTROPHORESIS Routine 03/19/2025 11:14 AM EDT Neuropathy MYOSITIS SPECIFIC 11 ANTIBODY PANEL Routine 03/19/2025 11:14 AM EDT Elevated CPK LD Routine 03/19/2025 11:14 AM EDT Elevated CPK ALDOLASE Routine 03/19/2025 11:14 AM EDT Elevated CPK CREATINE KINASE, TOTAL Routine 11:14 AM EDT Elevated CPK URINALYSIS, COMPLETE Routine 03/19/2025 11:14 AM EDT Elevated CPK POCT GLUCOSE Routine 03/18/2025 11:55 AM EDT Prediabetes POCT GLYCATED HEMOGLOBIN, TOTAL Routine 03/18/2025 11:54 AM EDT Prediabetes BI MAMMOGRAM SCREENING TOMOSYNTHESIS BILATERAL Routine 03/04/2025 9:26 AM EDT SED RATE BY MODIFIED WESTERGREN Routine 01/22/2025 [...] GFR Routine 01/07/2025 1 1:33 AM EDT HM PAP/HPV Routine 01/04/2025 9:22 AM EDT ALBUMIN, RANDOM URINE W/CREATININE Routine 06/12/2024 11:40 AM EDT Annual physical exam HEPATITIS C AB W/REFL TO HCV RNA, QN, PCR Routine 06/12/2024 11:39 AM EDT Annual physical exam HIV 1/2 ANTIGEN/ANTIBODY, FOURTH GENERATION W/RFL Routine 06/12/2024 11:39 AM EDT Annual physical exam COLPOSCOPY Routine 02/11/2024 9:20 AM EDT HM PAP/HPV Routine 01/09/2024 9:20 AM EDT from Last 3 Months or Most Recently Relevant to Health Maintenance Results * Myositis Specific 11 Antibody Panel (03/19/2025 11:14 AM EDT) Liv-1 Ab <11 <[address] [facility] Pl-7 Ab <11 <11 [facility] Pl-12 Ab <11 <11 [facility] Ej Ab <11 <11 [facility] Oj Ab <11 <11 [facility] SRP Ab <11 <11 [facility] Mi-2 alpha Ab <11 <11 [facility] Mi-2 beta Ab <11 <11 [facility] MDA5 Ab <11 <11 [facility] TIF1 gamma Ab <11 <11 [facility] NXP-2 (MJ) Ab <11 <11 [facility] Comment: Myositis-specific autoantibodies (MSAs) are highlyselective, generally mutually exclusive, and areassociated with a particular clinical phenotypewithin the myositis spectrum.Anti-synthetase syndrome is associated with MSAs tocytoplasmic enzymes and tRNAs involved with thesynthesis of proteins. Target antigens include Liv-1,PL-7, PL-12, EJ, and OJ. Clinically, anti-synthetasesyndrome is primarily characterized by myositis andlung inflammation.Dermatomyositis is associated with MSAs to SRP, Mi-2A,Mi-2B, and clinically this disease is characterized bymyositis in association with a rash. Additionally, MSAsto MDA5 ([id number]) have been identified in patients withclinically amyopathic dermatomyositis and rapidlyprogressive lung disease. MSAs to TIF1-y and NXP-2,collectively, are seen in >40% of children withdermatomyositis and appear to identify those with moresevere disease. Finally, TIF1-y Ab has been reportedin adults with dermatomyositis and is associated withmalignancy, but not in children.SRP Ab has also been associated with necrotizingmyopathy, a disease with unique histological featuresand an aggressive clinical course.This test was developed and its analytical performancecharacteristics have been determined by [employer]. It has not been cleared or approved bythe FDA. This assay has been validated pursuant to theIA regulations and is used for clinical purposes.THIS TEST WAS PERFORMED AT:[facility]/LINK [id number] [place] [address]WQCCXVALENTÍN JUNE MD,PHD,DAVID Blood Venous blood specimen / Unknown 03/19/2025 11:14 AM EDT 03/19/2025 12:09 PM EDT us Wendy Vance MD LAB BLOOD ORDERAB LES Final Result Performing Organization Address City/[facility]/ZIP Co de Phone Number [facility] [address] [place] [phone] * Aldolase (03/19/2025 11:14 AM EDT) Aldolase 6.3 <=8.1 U/L [facility] Comment:THIS TEST WAS PERFOR MED AT:[facility]/LINK [id number] [place] [address]NRHHYTEBEN JERNIGAN MD,PHD Blood Venous blood specimen / Unknown 03/19/2025 11:14 AM EDT 03/19/2025 12:17 PM EDT us Wendy Vance MD LAB BLOOD ORDERAB LES Final Result [facility] [address] [place] [phone] * (ABNORMAL) Urinalysis Complete (03/19/2025 11:14 AM EDT) Color Urine Dark Yellow [facility] Appearance Urine Clear [facility] PH 5.5 5.0 - 9.0 [facility] Glucose Urine UA Negative Negative mg/dL [facility] Urine Blood Negative Negative [facility] Specific Victoria - Urine >=1.030(H) 1.005 - 1.025 [facility] Urine Protein Trace Neg-Trace mg/dL [facility] Urine Ketones Trace Negative mg/dL [facility] Nitrite Urine Negative Negative [facility] Leukocyte Esterase Urine Negative Negative [facility] RBC Urine 0-2 0 - 2 /HPF [facility] Urine WBC 0-5 0 - 5 /HPF [facility] Urine Squamous Epithelial Cell 0-2 0 - 2 /HPF [facility] Urine Bacteria None Seen None Seen [facility] Hyaline Casts, Urine 0-2 0 - 2 /LPF [facility] Urine (Urine, Random) 03/19/2025 11:14 AM EDT 03/19/2025 11:56 AM EDT us Wendy Vance MD LAB URINE ORDERAB LES Final Result Performing Organization Address [facility]/ZIP Co de Phone Number [facility] [address] [place] [phone] * Protein, Total and Protein??Electrophoresis (03/19/2025 11:14 AM EDT) Prot Elec - Total Protein 7.3 6.1 - 8.1 g/dL [facility] Prot Elec - Albumin 4.2 3.8 - 4.8 g/dL [facility] Prot Elec - Alpha1 0.3 0.2 - 0.3 g/dL [facility] Prot Elec - Alpha2 0.8 0.5 - 0.9 g/dL [facility] Prot Elec - Beta 1 0.4 0.4 - 0.6 g/dL [facility] Prot Elec - Beta 2 0.5 0.2 - 0.5 g/dL [facility] Prot Elec - Gamma 1.1 0.8 - 1.7 g/dL [facility] PES - Abn Protein Band 1 TNP [facility] PES-Abn Protein Band 2 TNP [facility] PES-Abn Protein Band 3 [facility] Prot Elec - Interpretation SEE NOTE [facility] Comment:Normal Serum Protein Electrophoresis Pattern.No abnormal protein bands (M-protein) detected.THIS TEST WAS PERFORMED AT:[id number] [place] [id number] DAN MD Blood Venous blood specimen / Unknown 03/19/2025 11:14 AM EDT 03/19/2025 12:09 PM EDT us Wendy Vance MD LAB BLOOD ORDERAB LES Final Result Performing Organization Address City/[facility]/ZIP Co de Phone Number [facility] [address] [place] [phone] * Lactate Dehydrogenase (LD) (03/19/2025 11:14 AM EDT) Lactate Dehydrogenase 214 122 - 220 U/L [facility] Blood Venous blood specimen / Unknown 03/19/2025 11:14 AM EDT 03/19/2025 12:17 PM EDT us Wendy Vance MD LAB BLOOD ORDERAB LES Final Result Performing Organization Address City/[facility]/ZIP Co de Phone Number [facility] [address] [place] [phone] * (ABNORMAL) Creatine Kinase, Total (03/19/2025 11:14 AM EDT) Only the most recent of2 resultswithin the time period is included. Creatine Kinase Total 172(H) 26 - 140 U/L [facility] Blood Venous blood specimen / Unknown 03/19/2025 11:14 AM EDT 03/19/2025 12:17 PM EDT Wendy Vance MD LAB BLOOD ORDERAB LES Final Result [facility] [address] [place] [phone] * POCT Glucose (03/18/2025 11:55 AM EDT) Pathologist [facility] Glucose Blood, POC 94 60 - 200 mg/dL QC Media Lot # [id number] Lot# Expiration Date 72 Blood Capillary blood specimen / Unknown 03/18/2025 11:55 AM EDT Wendy Vance MD POINT OF CARE PARIS T ENTER/EDIT ORDERABLES Final Result * POCT HGB A1C (03/18/2025 11:54 AM EDT) Pathologist [facility] Hemoglobin A1C 5.4 4.0 - 5.7 % QC Media Lot # [id number] Lot# Expiration Date 314[address] Blood 03/18/2025 11:5 4 AM EDT Wendy Vance MD POINT OF CARE PAR[place] T ENTER/EDIT ORDERABLES Final Result * BI Mammogram Screening Tomosynthesis Bilateral (03/04/2025 9:26 AM EDT) Anatomical Region Laterality Modality Breast Bilateral Mammography 03/04/2025 9:26 AM EDT Narrative 03/15/2025 10:34 AM EDT [facility] [address] [place] [address] Mammography Report Signed Patient: Jocelin Auguste#: [id number] : 1970 Acct:[id number] Age/Sex: 54 / F ADM Date: 03/04/25 Loc: HOJessicaMAMMO Attending Dr: Wendy Vance MD Ordering Physician: Wendy Pang MD Re sults: 1Negative Date of Service: 03/04/25 Follow Up: 1 Year From Orig inal Mammogram Procedure(s): MM tomosynthesis screening BI Accession Number(s): [id number] cc: Wendy Pang MD EXAMINATION: MM SCREENING DIGITAL BREAST TOMOSYNTHESIS, BILATERAL CLINICAL INFORMATION: Screening. Asymptomatic. COMPARISON: Mammography: Comparison is made with available priors TECHNIQUE: Digital breast mammography with tomosynthesis is performed in both the craniocaudal and mediolateral oblique views along with computer-aided detection (CAD). FINDINGS: There are scattered areas of fibroglandular [...] target due date for their next mammogram. Electronically signed by: Keyonna Colin DO 03/15/2025 10:31 AM EDT Dictated By: Keyonna Colin DO Signed By: <Electronically signed by Keyonna Colin DO in OV> 03/15/25 1031 DD/ 0926 TD/TT: 03/04/25 0949 Management Assistant: Procedure Note Donotuseinterpreter, Image - 03/15/2025 [facility] [address] [place] [address] Dr. [place], [place] [address] Mammography Report Signed Patient: Donna RizviaballoJo R#: [id number] : 1970Acct:[id number] Age/Sex: 54 / FADM Date: 03/04/25 Loc: HO.MAMMO Attending Dr: Wendy Vance MD Ordering Physician: Wendy Pang sults: 1Negative Date of Service: 03/04/25Follow Up: 1 Year From Orig ina Mammogram Procedure(s): MM tomosynthesis screening BI Accession Number(s): [id number] cc: Wendy Pang MD EXAMINATION: MM SCREENING DIGITAL BREAST TOMOSYNTHESIS, BILATERAL CLINICAL INFORMATION: Screening. Asymptomatic. COMPARISON: Mammography: Comparison is made with available priors TECHNIQUE: Digital breast mammography with tomosynthesis is performed in both the craniocaudal and mediolateral oblique views along with computer-aided detection (CAD). FINDINGS: There are scattered areas of fibroglandular [...] target due date for their next mammogram. Electronically signed by: Keyonna Colin DO 03/15/2025 10:31 AM EDT Dictated By: Keyonna Colin DO Signed By: <Electronically signed by Keyonna Colin DO in OV> 03/15/25 1031 DD/ 0926 TD/TT: 03/04/25 0949 Management Assistant: us Wendy Vance MD IMG BI PROCEDURES Final Result * (ABNORMAL) Sed Rate by Modified Joseph (01/22/2025 12:19 PM EDT) Erythrocyte Sedimentation Rate 28(H) 0 - 20 MM/HR [facility] Comment:Patients with polycy themia and many hemoglobin abnormalitiesmay have depressed sed rates whereas patients with anemiamay have elevated sed rates. Blood Venous blood specimen / Unknown 01/22/2025 12:19 PM EDT 01/22/2025 12:19 PM EDT us Wendy Vance MD LAB BLOOD ORDERAB LES Final Result Performing Organization Address [facility] Co de Phone Number [facility] [address] [place] [phone] * (ABNORMAL) C-reactive Protein (01/22/2025 12:19 PM EDT) C Reactive Protein 1.61(H) < or = 0.50 mg/dL [facility] Blood Venous blood specimen / Unknown 01/22/2025 12:19 PM EDT 01/22/2025 12:19 PM EDT us Wendy Vance MD LAB BLOOD ORDERAB LES Final Result Performing Organization Address [facility] Co de Phone Number [facility] [address] [place] [phone] * TSH (01/22/2025 12:19 PM EDT) Thyroid Stimulating Hormone 0.62 0.32 - 4.0 uIU/mL [facility] Comment:TSH 3rd Generation ( [facility]) Blood Venous blood specimen / Unknown 01/22/2025 12:19 PM EDT 01/22/2025 12:19 PM EDT us Wendy Vance MD LAB BLOOD ORDERAB LES Final Result Performing Organization Address [facility] Co de Phone Number [facility] [address] [place] [phone] * T4, Free (01/22/2025 12:19 PM EDT) Free T4 (Free Thyroxine) 1.26 0.71 - 1.85 ng/dL [facility] Blood Venous blood specimen / Unknown 01/22/2025 12:19 PM EDT 01/22/2025 12:19 PM EDT us Wendy Vance MD LAB BLOOD ORDERAB LES Final Result Performing Organization Address [facility]/ZIP Co de Phone Number [facility] [address] [place] [phone] * Lipid Panel, Standard (01/22/2025 12:19 PM EDT) Triglycerides 101 <150 mg/dL [facility] Comment:Desirable Triglyceri de: less than 150 mg/dLBorderline High Triglyceride 150-199 mg/dLHigh Triglyceride: 200-499 mg/dLVery High Triglyceride: greater than or equal to 5OO mg/dL Cholesterol 159 <200 mg/dL [facility] Comment:Desirable Cholestero l: less than 200 mg/dLBorderline High Cholesterol: 200-239 mg/dLHigh Cholesterol: greater than 239 mg/dL LDL Cholesterol Calculated 97 <100 mg/dL [facility] Comment:Desirable LDL: less than 100 mg/dLNear Optimal/Above Optimal LDL: 110- 129 mg/dLBorderline High LDL: 130-159 mg/dLHigh LDL: 160-189 mg/dLVery High LDL: greater than or equal to 190 mg/dL HDL Cholesterol 42 >40 mg/dL [facility] Comment:Desirable HDL: great er than 40 mg/dL Note: This HDL assay may give artificially low results in patients with liver disease. Blood Venous blood specimen / Unknown 01/22/2025 12:19 PM EDT 01/22/2025 12:19 PM EDT us Wendy Vance MD LAB BLOOD ORDERAB LES Final Result Performing Organization Address City/[facility]/ZIP Co de Phone Number [facility] [address] [place] [phone] * (ABNORMAL) Comprehensive Metabolic Panel (01/22/2025 12:19 PM EDT) Sodium 143 135 - 145 mmol/L [facility] Potassium 4.3 3.3 - 5.1 mmol/L [facility] Comment:Slight Hemolysis.Int erpret result with caution. Chloride 110(H) 96 - 108 mmol/L [facility] Carbon Dioxide 26 22 - 29 mmol/L [facility] Anion Gap 11(L) 12 - 20 [facility] Urea Nitrogen (BUN) 16 9 - 16 mg/dL [facility] Creatinine, Serum 0.67 0.5 - 1.4 mg/dL [facility] Estimated Glomerular Filt Rate >60 [facility] Comment:Chronic Kidney Disea se: Estimated GFR < 60 mL/min/1.45h6Yswqdx Kidney Disease: Estimated GFR < 15 mL/min/1.73m2 Glucose 82 60 - 115 mg/dL [facility] Calcium 9.6 8.4 - 10.2 mg/dL [facility] Bilirubin, Total 0.4 0.0 - 1.0 mg/dL [facility] Aspartate Amino Transferase 47(H) 5 - 31 U/L [facility] Comment:Slight Hemolysis.Int erpret result with caution. Alanine Aminotransferase 38(H) 0 - 31 U/L [facility] Total Protein 8.0 6.5 - 8.0 g/dL [facility] Albumin Level 4.4 3.5 - 5.0 g/dL [facility] Alkaline Phosphatase 70 39 - 117 U/L [facility] Blood Venous blood specimen / Unknown 01/22/2025 12:19 PM EDT 01/22/2025 12:19 PM EDT us Wendy Vance MD LAB BLOOD ORDERAB LES Final Result [facility] [address] [place] [phone] * Helicobacter pylori, Urea Breath Test (01/22/2025 12:00 PM EDT) H. pylori Breath Test Positive Negative [facility] Comment:Antimicrobials, prot on pump inhibitors and bismuthpreparations are known to suppress H. pylori. Ingestingthese medications within two weeks prior to performing thebreath test may produce negative test results. A positiveresult is still clinically valid. 01/22/2025 12:0 0 PM EDT 01/22/2025 3:20 PM EDT us Generic External Data Provider LAB BODY FLUIDS A ND STOOLS ORDERABLES Final Result [facility] [address] [place] [phone] * CT Abdomen Pelvis w/ Contrast (01/08/2025 10:50 AM EDT) Anatomical Region Laterality Modality Body, Pelvis, Abdomen Computed T omography 01/08/2025 10:5 0 AM EDT Narrative 01/08/2025 10:51 AM EDT [address] [address] [address] Scan Report Signed Patient: Jocelin Auguste R#: [id number] : 1970 Acct:[id number] Age/Sex: 54 / F ADM Date: 01/07/25 Loc: HO.CT Attending Dr: Wendy Vance MD Ordering Physician: Wendy Pang MD Date of Service: 01/07/25 Procedure(s): CT abdomen pelvis w IV con Accession Number(s): [id number] cc: Wendy Pang MD Report Number: [id number]: Total DLP = 587.00 mGy-cm CLINICAL HISTORY: atypical lymph node present in sperior peripancreatic region CT abdomen and pelvis with contrast Comparison: US/NC/SR - US ABDOMEN LIMITED - 01/28/24 10:26 [...] 01/08/25 1051 DD/ 1050 TD/TT: 01/08/25 1050 Management Assistant: Procedure Note Donotuseinterpreter, Image - 01/08/[address] [place] [address] [address] Scan Report Signed Patient: Jo Auguste R#: [id number] : 1970Acct:[id number] Age/Sex: 54 / FADM Date: 01/07/25 Loc: HO.CT Attending Dr: Wendy Vance MD Ordering Physician: Wendy Pang MD Date of Service: 01/07/25 Procedure(s): CT abdomen pelvis w IV con Accession Number(s): [id number] cc: Wendy Pang MD Report Number: [id number]: Total DLP = 587.00 mGy-cm CLINICAL HISTORY: atypical lymph node present in sperior peripancreaticregion CT abdomen and pelvis with contrast Comparison: US/NC/SR - US ABDOMEN LIMITED - 01/28/24 10:26 [...] 01/08/25 1051 DD/ 1050 TD/TT: 01/08/25 1050 Management Assistant: Wendy Vance MD IMG CT PROCEDURES Final Result * POCT Creatinine GFR (01/07/2025 11:33 AM EDT) POCT Creatinine 0.7 0.5 - 1.4 mg/dL [facility] GFR POC >60 [facility] Comment:Chronic Kidney Disea se: Estimated GFR < 60 mL/min/1.05m7Wtxwhe Kidney Disease: Estimated GFR < 15 mL/min/1.73m2 01/07/2025 11:3 3 AM EDT 01/07/2025 3:17 PM EDT Narrative [facility] - 01/07/2025 3:20 PM EDT [id number] Wendy Vance MD LAB POINT OF CARE TEST DOCKED DEVICE ORDERABLES Final Result [facility] [address] [place] [phone] * HM PAP/HPV (01/04/2025 9:22 AM EDT) Only the most recent of2 resultswithin the time period is included. Historical Provider HEALTH MAINTENANCE Final Result * Albumin, Random Urine W/Creatinine (06/12/2024 11:40 AM EDT) Creatinine, Urine 195.62 mg/dL [facility] Microalbumin Urine 41.0 mg/L [facility] Microalbum Creatinine Ratio Ur 20.9 <30 ug/mg cr [facility] Comment:Albumin/Creatinine R atio Reference Ranges: Normal: < 30 ug/mg creatinine Microalbuminuria: 30 - 300 ug/mg creatinineClinical Albuminuria: > 300 ug/mg creatinine Urine (Urine, Random) 06/12/2024 11:40 AM EDT 06/12/2024 1:08 PM EDT us Wendy Vance MD LAB URINE ORDERAB LES Final Result Performing Organization Address City/[facility]/ZIP Co de Phone Number [facility] [address] [place] [phone] * Hepatitis C Antibody with Reflex to HCV, RNA, Quantitative, Real-Time PCR (06/12/2024 11:39 AM EDT) Hepatitis C Antibody Nonreactive Nonreactive [facility] Comment:Antibodies to HCV no t detected; does not exclude early acuteHCV infection. Blood Venous blood specimen / Unknown 06/12/2024 11:39 AM EDT 06/12/2024 1:19 PM EDT us Wendy Vance MD LAB BLOOD ORDERAB LES Final Result Performing Organization Address [facility] Co de Phone Number [facility] [address] [place] [phone] * HIV-1/2 Antigen and Antibodies, Fourth Generation, with Reflexes (06/12/2024 11:39 AM EDT) HIV AB/AG Nonreactive Nonreactive [facility] Comment:HIV-1 p24 Ag and/or HIV-1/HIV-2 Ab not detected.A test result that is nonreactive does not exclude thepossibility of exposure to or infection with HIV-1 and/orHIV-2. Nonreactive results in this assay for individualswith prior exposure to HIV-1 and/or HIV-2 may be due toantigen and antibody levels that are below the limit ofdetection of this assay.The [employer] HIV Ag/Ab Combo assay result andsupplemental assay results should be interpreted inconjunction with the patient's clinical presentation,history and other laboratory results. If the results areinconsistent with clinical evidence, additional testing issuggested to confirm the result. Blood Venous blood specimen / Unknown 06/12/2024 11:39 AM EDT 06/12/2024 1:19 PM EDT us Wendy Vance MD LAB BLOOD ORDERAB LES Final Result [facility] [address] [place] [phone] * Colposcopy (02/11/2024 9:20 AM EDT) us Historical Provider MD IN CLINIC/BEDSIDE ORDERAB LES Edited Result - Final from Last 3 Months or Most Recently Relevant to Health Maintenance Insurance [facility] C3 Care Teams Manager Channel Relationship Specialty Start Date End Date Wendy Pang MD [address] [place] [phone] PCP - General Internal Medicine 02/23/23
--- OUTSIDE RECORDS SUMMARY | 2025-04-01 14:18 | XMS_ITS | Patient Health Record ---
Author Organization [facility] enter Address [address] [place] [address] Care Team Providers Care Railroad Baggage Porter Name Role Phone Michael Mullre Primary Care Provider Allergies No Known Allergies [...] MG 1 tablet Orall y Once a day; Duration: 30 day(s) 04/18/2023 Active metFORMIN HCl ER 500 MG 1 tablet with ev ening meal Orally Once a day; Duration: 30 day(s) 04/18/2023 Active Gabapentin 100 MG 3 capsule Orally tid ; Duration: 30 day(s) 04/18/2023 Active Synthroid 88 MCG 1 tablet in the morn ing on an empty stomach Orally Once a day; Duration: 90 days 04/18/2023 Active Naproxen 500 MG 1 tablet with food o r milk as needed Orally every 12 hrs prn; Duration: 60 days 06/04/2023 Active Acetic Acid 2 % 5 drops into affecte d ear Otic bid prn; Duration: 10 day(s) 06/04/2023 Active Fioricet 50-300-40 MG 1 capsule as neede d Orally every 4 hrs Active Albuterol Sulfate HFA 108 (90 Base) MCG/ACT 2 puffs orally as needed Inhalation every 4 hrs as needed; Duration: 60 days 08/06/2023 Active Sertraline HCl 25 [...] Problem Status W/U Status Risk Notes Problem Cervicalgia (50328332) Cervicalgia (M54.2) Active confirmed Problem Morbid obesity (disorder) (594369292) Morbid (severe) obesity due to excess calories (E66.01) Active confirmed Problem Acquired hypothyroidism (146735854) Acquired hypothyroidism (E03.9) Active confirmed Problem Hyperlipidaemia (10182909) Hyperlipidemia, unspecified hyperlipidemia type (E78.5) Active confirmed Problem Type II diabetes mellitus without complication (076487824) Type 2 diabetes mellitus without complication, without long-term current use of insulin (E11.9) Active confirmed Problem Dysphagia (14868939) Dysphagia, unspecified type (R13.10) Active confirmed Problem Mixed anxiety and depressive disorder (784951546) Depression with anxiety (F41.8) Active confirmed Problem Sleep apnea (65099342) Sleep apnea, unspecified type (G47.30) Active confirmed Problem History of asthma (490648838) History of asthma (Z87.09) Active confirmed Problem Pruritic disorders (629959389) Ear itch (L29.9) Active confirmed Problem Sleep apnea (disorder) (27032645) History of sleep apnea (Z86.69) Active confirmed Problem Body mass index 40+ - severely obese (026962850) Body mass index [BMI] 40.0-44.9, adult (Z68.41) [...] Insured Coverage Start Date Coverage End Date HUSKY A [address] [place], [place] [id number] Jocelin Talley Self - patient is the insured DENTAL Medicaid HP [address] [place] [address] [phone] [id number] Jocelin Talley Self - patient is the insured Medical (General) History Surgical History Surgery Date(Month/Year) c section x 3 bilat tubal Hospitalization History Reason Date(Month/Year) see surgical
== END 2025-04-01 13:27 | disposition home or self-care (01) ==
LOC: HO.NEURO 13:26
PROVIDERS: PCP Student in an Organized Health Care Education/Training Program; Visit Provider Student in an Organized Health Care Education/Training Program
DX: R74.8 Abnormal levels of other serum enzymes (principal); G62.9 Polyneuropathy, unspecified
CPT/HCPCS: 95886; 95913

== ENCOUNTER → 2025-04-01 13:31 | Outpatient (BNV) | payer MEDICAID, SELFPAY | PROVIDERS: PCP Student in an Organized Health Care Education/Training Program; Visit Provider Physical Medicine & Rehabilitation | DX: G56.83 Other specified mononeuropathies of bilateral upper limbs (principal) | CPT/HCPCS: 95886; 95913 ==

== ENCOUNTER 2025-04-08 08:58 | Outpatient (REF) | payer MEDICAID, SELFPAY ==
--- NOTE | ~2025-04-08 | XR_ITS ---
EXAMINATION: XR ANKLE, LEFT CLINICAL INFORMATION: pain/sprain COMPARISON: None available. TECHNIQUE: AP, lateral, and mortise views of the left ankle. FINDINGS: No acute cortical disruption or malalignment. No lytic or blastic lesions. Small joint effusion, anterior tibiotarsal bursa. Soft tissue edema/contusion, lateral malleolus. Plantar calcaneal spur. Small exostosis at the Achilles tendon insertion. Small punctate calcifications in the soft tissues of the left lower extremity probably venous. No subcutaneous emphysema. No metallic or radiopaque foreign body. XR/XR ankle LT min 3V IMPRESSION: Soft tissue contusion/edema, lateral malleolus, left ankle. Small joint effusion, anterior tibiotarsal bursa. No acute fracture or dislocation. Plantar calcaneus spur. Electronically signed by: Jero Nickerson MD 04/08/2025 09:23 AM EDT
--- OUTSIDE RECORDS SUMMARY | 2025-04-08 10:00 | XMS_ITS | Patient Health Record ---
Author Organization [facility] enter Address [address] [place] [address] Care Team Providers Care Nut Sorter Name Role Phone Michael Muller Primary Care [...] Status W/U Status Risk Notes Problem Cervicalgia (95026615) Cervicalgia (M54.2) Active confirmed Problem Morbid obesity (disorder) (454487199) Morbid (severe) obesity due to excess calories (E66.01) Active confirmed Problem Acquired hypothyroidism (979068353) Acquired hypothyroidism (E03.9) Active confirmed Problem Hyperlipidaemia (11266210) Hyperlipidemia, unspecified hyperlipidemia type (E78.5) Active confirmed Problem Type II diabetes mellitus without complication (940677487) Type 2 diabetes mellitus without complication, without long-term current use of insulin (E11.9) Active confirmed Problem Dysphagia (88011764) Dysphagia, unspecified type (R13.10) Active confirmed Problem Mixed anxiety and depressive disorder (845538892) Depression with anxiety (F41.8) Active confirmed Problem Sleep apnea (43067027) Sleep apnea, unspecified type (G47.30) Active confirmed Problem History of asthma (385334887) History of asthma (Z87.09) Active confirmed Problem Pruritic disorders (178207969) Ear itch (L29.9) Active confirmed Problem Sleep apnea (disorder) (82769991) History of sleep apnea (Z86.69) Active confirmed Problem Body mass index 40+ - severely obese (749457415) Body mass index [BMI] 40.0-44.9, adult (Z68.41) [...] End Date HUSKY A [address] [place], [place] [id number] Jocelin Talley Self - patient is the insured DENTAL Medicaid HP [address] [place] [address] [phone] [id number] Jocelin Talley Self - patient is the insured Medical (General) History Surgical History Surgery Date(Month/Year) c section x 3 bilat tubal Hospitalization History Reason Date(Month/Year) see surgical
== END 2025-04-08 08:59 | disposition home or self-care (01) ==
LOC: HO.HHCX 08:58
PROVIDERS: PCP Student in an Organized Health Care Education/Training Program; Visit Provider Internal Medicine
DX: S93.492A Sprain of other ligament of left ankle, initial encounter (principal)
CPT/HCPCS: 73610

== ENCOUNTER → 2025-04-08 09:04 | Outpatient (BNV) | payer MEDICAID, SELFPAY | PROVIDERS: PCP Student in an Organized Health Care Education/Training Program; Visit Provider Radiology Diagnostic Radiology | DX: M25.472 Effusion, left ankle (principal) | CPT/HCPCS: 73610 ==

== ENCOUNTER 2025-04-28 09:00 | Outpatient (RCR) | payer MEDICAID, SELFPAY | END 2025-08-09 10:43 | disposition home or self-care (01) | LOC: HO.PT 09:00 | PROVIDERS: PCP Student in an Organized Health Care Education/Training Program; Visit Provider Anesthesiology | DX: M25.511 Pain in right shoulder (principal); M25.512 Pain in left shoulder; M54.9 Dorsalgia, unspecified; M79.7 Fibromyalgia; G89.4 Chronic pain syndrome; M15.0 Primary generalized (osteo)arthritis | CPT/HCPCS: 97110; 97140; 97161; 97530 ==

== ENCOUNTER 2025-05-19 08:44 | Outpatient (REF) | payer MEDICAID, SELFPAY ==
--- NOTE | ~2025-05-19 | XR_ITS ---
EXAMINATION: XR CERVICAL SPINE CLINICAL INFORMATION: PAIN COMPARISON: None available. TECHNIQUE: 5 views of the cervical spine were obtained. FINDINGS: There is no prevertebral edema. C3-4 demonstrates mild retrolisthesis. There are small uncovertebral osteophytes. C4-5: There are small uncovertebral osteophytes. C5-6: There is mild disc space narrowing with endplate osteophytes. There are small uncovertebral osteophytes. C6-7: There is mild disc space narrowing and endplate sclerosis with osteophytes. There are minute uncovertebral osteophytes. There is mild bony foraminal narrowing bilaterally. C7-T1: Unremarkable. XR/XR cervical spine 4V IMPRESSION: Multilevel degenerative changes are most pronounced at C5-6 and C6-7. Electronically signed by: Brice Pate MD 05/19/2025 09:39 AM EDT
--- OUTSIDE RECORDS SUMMARY | 2025-05-19 09:19 | XMS_ITS | Encounter Summary ---
Author Organization [employer] Address [address] [facility] [address] 7[address] [place] [address] Care Team Providers Care Upholstery Department Supervisor Name Role Phone Wendy Pang MD Primary Care Pro vider Encounter Details Date Type Department Care Team (Late st Contact Info) Description 03/25/2025 Orders Only [facility] [address] [place], [place] [phone] Provider, MD Mychal Social History Tobacco Use [...] Description 05/19/2025 9:45 AM EDT Office Visit [facility] [address] [place] [address] [phone] Wendy Pang MD [address] [place] [address] [phone] documented as of this encounter Procedures Procedure Name Priority Date/Time Associated Diagnosis Comments HM PAP/HPV Routine 01/04/2025 9:22 AM EDT documented in this encounter Results * HM PAP/HPV (01/04/2025 9:22 AM EDT) us Historical Provider HEALTH MAINTENANCE Final Result documented in this encounter Visit Diagnoses Not on filedocumented in this encounter Additional Health Concerns Assessment Noted Time PHQ-9 Depression Total Score: 17 025 9:06 AM EDT documented as of this encounter Care Teams Upholstery Department Supervisor Relationship Specialty Start Date End Date Wendy Pang MD [address] [place] [address] [phone] PCP - General Internal Medicine 02/23/23 documented as of this encounter
--- OUTSIDE RECORDS SUMMARY | 2025-05-19 09:19 | XMS_ITS | Encounter Summary ---
Author Organization [employer] Address [address] [facility] 7t [place] [address] Care Team Providers Care Sound Printer Name Role Phone Wendy Pang MD Primary Care Pro vider Encounter Details Date Type Department Care Team (Late st Contact Info) Description 03/25/2025 Orders Only [facility] [address] [place], [place] [phone] Wendy Pang MD [address] [place] [address] Social History Tobacco Use Types Packs/Day Years [...] your housing situation today? I have shanta josh 01/13/[address] you li [...] t he electric, gas, oil or water [employer] threatened to shut off services in your [...] Description 05/19/2025 9:45 AM EDT Office Visit [facility] [address] [place] [phone] Wendy Pang MD [address] [place] [address] documented as of this encounter Visit Diagnoses Not on filedocumented in this encounter Additional Health Concerns Assessment Noted Time PHQ-9 Depression Total Score: 17 025 9:06 AM EDT documented as of this encounter Care Teams Sound Printer Relationship Specialty Start Date End Date Wendy Pang MD [address] [place] [phone] PCP - General Internal Medicine 02/23/23 documented as of this encounter
--- OUTSIDE RECORDS SUMMARY | 2025-05-19 09:19 | XMS_ITS | Encounter Summary ---
Author Organization [employer] Address [address] [facility] [address] [place] [address] Care Team Providers Care Hyperbaric Technician Name Role Phone Wendy Pang MD Primary Care Pro vider Reason for Visit * Reason Onset Date Comments Nurse Triage 03/11/2023 Encounter Details Date Type Department Care Team (Late st Contact Info) Description 03/11/2023 Telephone [facility] [address] [place] [address] Wendy Pang MD [address] [place] [address] Nurse Triage Social History Tobacco Use Types [...] 03/14/2023 11:06 AM EDT Triage call with [employer] Dispatch Clerks Supervisor ID [id number]. Pt was triaged 03/11/23 and advised to come to [facility] to be seen but, didn't go. Pt reports doesn't want to go to [facility] because, I have too many issues Carol only want my doctor . Pt is offered 300pm apt with Dr. Villegas today but, reports no transportation. Advised Pt has 04/18/23 apt for transfer [address] Dr. Jama Vance and Pt reports my friend said thereare many apts open with Dr. Yun earlier than that and I want to go 03/25. . [employer]vac Controls Technician looked at schedule for that day and no available apts for transfer Pt seen. Phone connection very poor. Call was dropped 3 times during this conversation. Advised Pt to come to [facility] today or tomorrow. Hours given opentill 4pm [...] still has severe pain. Please contact at [phone] * Telephone Encounter - Beryl Schuster RN - 03/11/2023 1:25 PM EDT Triage call with [employer] Cler[employer] Supervisor ID [id number] Pt reports shoulder, neck, middle to low back pain. Pt reports left foot almost gave out and Pt almost fell so Pt has someone walk with her all the time. Pt has suffered loss of mother and other family problems causing the increase of the pain. Pt is not finding effective pain relief and wants to see provider. Advised to come to [facility] today to be seen and Pt agreed. [...] accepted this outcome Please contact pt at [phone] [place] Citizen Speaker documented in this encounter Plan of Treatment Upcoming Encounters Date Type Department Care Team (Late st Contact Info) Description 05/19/2025 9:45 AM EDT Office Visit [facility] [address] [place] [address] [phone] Wendy Pang MD [address] [place] [address] documented as of this encounter Visit Diagnoses Not on filedocumented in this encounter Care Teams Hyperbaric Technician Relationship Specialty Start Date End Date Wendy Pang MD [address] [place] [address] [phone] PCP - General Internal Medicine 02/23/23 documented as of this encounter
--- OUTSIDE RECORDS SUMMARY | 2025-05-19 09:19 | XMS_ITS | Encounter Summary ---
Author Organization [employer] Address [address] [facility] [address] [place] [address] Care Team Providers Care Meal Temperer Name Role Phone Wendy Pang MD Primary Care Pro vider Reason for Visit * Reason Comments Med Refill Encounter Details Date Type Department Care Team (Late st Contact Info) Description 03/12/2025 Refill [facility]INE [address] [place] [address] Wendy Pang MD [address] [place] [address] Polyarthralgia Social History Tobacco Use Types Packs/Day Years [...] is your housing situation today? I have shantaradha moreno 01/13/[address] you [...] Description 05/19/2025 9:45 AM EDT Office Visit [facility] [address] [place] [address] Wendy Pang MD [address] [place] [address] documented as of this encounter Visit Diagnoses Diagnosis Polyarthralgia Pain in joint, multiple sites documented in this encounter Additional Health Concerns Assessment Noted Time PHQ-9 Depression Total Score: 17 025 9:06 AM EDT documented as of this encounter Care Teams Meal Temperer Relationship Specialty Start Date End Date Wendy Pang MD [address] [place] [address] PCP - General Internal Medicine 02/23/23 documented as of this encounter
--- OUTSIDE RECORDS SUMMARY | 2025-05-19 09:19 | XMS_ITS | Encounter Summary ---
Author Organization [employer] Address [address] [facility] [address] [address] Care Team Providers Care Inside Sales Associate Name Role Phone Wendy Pang MD Primary Care Pro vider Reason for Visit * Reason Onset Date Comments Accamodation Letter 06/25/2024 Encounter Details Date Type Department Care Team ([facility] st Contact Info) Description 06/25/2024 Telephone [facility] MEDICINE [address] [place] [address] Wendy Pang MD [address] [place] [address] Accamodation Letter Social History Tobacco Use Types [...] encounter Miscellaneous Notes * Telephone Encounter - Chadturner Kim - 06/25/2024 4:23 PM EST Tc from pt requesting an accomodation letter for her bath tub to be changed. Pt stated she's finding it increasingly difficult to lift her legs to be able to enter the bath. If any questions you can contact pt at [phone]. (Belarusian Speaker) documented in this encounter Plan of Treatment Upcoming Encounters Date Type Department Care Team (Late st Contact Info) Description 05/19/2025 9:45 AM EDT Office Visit [facility] MED[facility]INE [address] [place], [place] [phone] Wendy Pang MD [address] [place] [phone] documented as of this encounter Visit Diagnoses Not on filedocumented in this encounter Additional Health Concerns Assessment Noted Time PHQ-9 Depression Total Score: 10 024 1:15 PM EDT documented as of this encounter Care Teams Inside Sales Associate Relationship Specialty Start Date End Date Wendy Pang MD [address] [place] [address] [phone] PCP - General Internal Medicine 02/23/23 documented as of this encounter
--- OUTSIDE RECORDS SUMMARY | 2025-05-19 09:19 | XMS_ITS | Encounter Summary ---
Author Organization [email or web address] Address [address] [facility] 7t [place] [address] Care Team Providers Care Document Preparation Specialist Name Role Phone Wendy Pang MD Primary Care Pro vider Encounter Details Date Type Department Care Team (Late st Contact Info) Description 08/13/2024 Telephone [facility] [address] [place], [place] [phone] Wendy Pang MD [address] [place] [address] Social History Tobacco Use Types Packs/Day Years [...] Description 05/19/2025 9:45 AM EDT Office Visit [facility] [address] [place] [address] [phone] Wendy Pang MD [address] [place] [phone] documented as of this encounter Visit Diagnoses Not on filedocumented in this encounter Additional Health Concerns Assessment Noted Time PHQ-9 Depression Total Score: 024 1:15 PM EDT documented as of this encounter Care Teams Document Preparation Specialist Relationship Specialty Start Date End Date Wendy Pang MD [address] [place] [phone] PCP - General Internal Medicine 02/23/23 documented as of this encounter
--- OUTSIDE RECORDS SUMMARY | 2025-05-19 09:19 | XMS_ITS | Patient Health Record ---
Author Organization [facility] Address [address] [place] [address] Care Team Providers Care Fuels Sales Representative Name Role Phone Michael Muller Primary Care Provider [phone] Allergies No Known Allergies Reason For Referral [...] Status W/U Status Risk Notes Problem Cervicalgia (33165857) Cervicalgia (M54.2) Active confirmed Problem Morbid obesity (disorder) (549396450) Morbid (severe) obesity due to excess calories (E66.01) Active confirmed Problem Acquired hypothyroidism (034316781) Acquired hypothyroidism (E03.9) Active confirmed Problem Hyperlipidaemia (28650683) Hyperlipidemia, unspecified hyperlipidemia type (E78.5) Active confirmed Problem Type II diabetes mellitus without complication (376882401) Type 2 diabetes mellitus without complication, without long-term current use of insulin (E11.9) Active confirmed Problem Dysphagia (47499339) Dysphagia, unspecified type (R13.10) Active confirmed Problem Mixed anxiety and depressive disorder (468803786) Depression with anxiety (F41.8) Active confirmed Problem Sleep apnea (49432781) Sleep apnea, unspecified type (G47.30) Active confirmed Problem History of asthma (839434091) History of asthma (Z87.09) Active confirmed Problem Pruritic disorders (868872379) Ear itch (L29.9) Active confirmed Problem Sleep apnea (disorder) (01267267) History of sleep apnea (Z86.69) Active confirmed Problem Body mass index 40+ - severely obese (315221431) Body mass index [BMI] 40.0-44.9, adult (Z68.41) [...] End Date HUSKY A [address] [place], [place] [id number] Jocelin Talley Self - patient is the insured DENTAL Medicaid HP [address] [place] [address] [id number] Jocelin Talley Self - patient is the insured Medical (General) History Surgical History Surgery Date(Month/Year) c section x 3 bilat tubal Hospitalization History Reason Date(Month/Year) see surgical
--- OUTSIDE RECORDS SUMMARY | 2025-05-19 09:19 | XMS_ITS | Encounter Summary ---
Author Organization [employer] Address [address] [facility] [address] 7[address] [place] [address] Care Team Providers Care Carding Machine Feeder Name Role Phone Wendy Pang MD Primary Care Pro vider Reason for Visit * Reason Comments Med Refill Encounter Details Date Type Department Care Team (Late st Contact Info) Description 10/26/2024 Refill [facility] [address] [place] [address] Patria Pappas ANP [address] [place] [address] Social History Tobacco Use Types Packs/Day Years [...] Description 05/19/2025 9:45 AM EDT Office Visit [facility] [address] [place] [phone] Wendy Pang MD [address] [place] [phone] documented as of this encounter Visit Diagnoses Not on filedocumented in this encounter Additional Health Concerns Assessment Noted Time PHQ-9 Depression Total Score: 024 1:15 PM EDT documented as of this encounter Care Teams Carding Machine Feeder Relationship Specialty Start Date End Date Wendy Pang MD [address] [place] [phone] PCP - General Internal Medicine 02/23/23 documented as of this encounter
--- OUTSIDE RECORDS SUMMARY | 2025-05-19 09:19 | XMS_ITS | Encounter Summary ---
Author Organization [employer] Address [address] [facility] 7t [place] [address] Care Team Providers Care Fish Tender Name Role Phone Wendy Pang MD Primary Care Pro vider Reason for Visit * Reason Comments Med Refill Encounter Details Date Type Department Care Team (Late st Contact Info) Description 01/20/2025 Refill [facility] [address] [place] [address] Wendy Pang MD [address] [place] [address] Social History Tobacco Use Types Packs/Day Years [...] Description 05/19/2025 9:45 AM EDT Office Visit [facility] [address] [place] [phone] Wendy Pang MD [address] [place] [phone] documented as of this encounter Visit Diagnoses Not on filedocumented in this encounter Additional Health Concerns Assessment Noted Time PHQ-9 Depression Total Score: 17 025 9:06 AM EDT documented as of this encounter Care Teams Fish Tender Relationship Specialty Start Date End Date Wendy Pang MD [address] [place] [phone] PCP - General Internal Medicine 02/23/23 documented as of this encounter
--- OUTSIDE RECORDS SUMMARY | 2025-05-19 09:19 | XMS_ITS | Encounter Summary ---
Author Organization [employer] Address [address] [facility] 7t [place] [address] Care Team Providers Care Washtub Worker Name Role Phone Wendy Pang MD Primary Care Pro vider Reason for Visit * Reason Comments Med Refill Encounter Details Date Type Department Care Team (Late st Contact Info) Description 01/07/2025 Refill [facility] [address] [place] [address] Wendy Pang MD [address] [place] [address] Type 2 diabetes mellitus without complication, without long-term current use of insulin ([facility]) Social History Tobacco Use Types Packs/Day Years [...] AM EDT Office Visit [facility] [address] [place] [phone] Wendy Pang MD [address] [place] [address] documented as of this encounter Visit Diagnoses Diagnosis Type 2 diabetes mellitus without complication, without long-term current use of insulin (HCC) documented in this encounter Additional Health Concerns Assessment Noted Time PHQ-9 Depression Total Score: 17 025 9:06 AM EDT documented as of this encounter Care Teams Washtub Worker Relationship Specialty Start Date End Date Wendy Pang MD [address] [place] [phone] PCP - General Internal Medicine 02/23/23 documented as of this encounter
--- OUTSIDE RECORDS SUMMARY | 2025-05-19 09:19 | XMS_ITS | Encounter Summary ---
Author Organization [employer] Address [address] [facility] 7t [place] [address] Care Team Providers Care Pinion And Wheel Truer Name Role Phone Wendy Pang MD Primary Care Pro vider Reason for Visit * Reason Onset Date Comments Durable Medical Equipment 06/23/2024 Prior Authorization 06/23/2024 Encounter Details Date Type Department Care Team (Late st Contact Info) Description 06/23/2024 Telephone [facility] [address] [place] [address] Wendy Pang MD [address] [place] [address] Durable Medical Equipment; Prior Authorization Social History [...] 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) documented in this encounter Plan of Treatment Upcoming Encounters Date Type Department Care Team (Late st Contact Info) Description 05/19/2025 9:45 AM EDT Office Visit [facility] [address] [place] [phone] Wendy Pang MD [address] [place] [phone] documented as of this encounter Visit Diagnoses Not on filedocumented in this encounter Additional Health Concerns Assessment Noted Time PHQ-9 Depression Total Score: 10 024 1:15 PM EDT documented as of this encounter Care Teams Pinion And Wheel Truer Relationship Specialty Start Date End Date Wendy Pang MD [address] [place] [phone] PCP - General Internal Medicine 02/23/23 documented as of this encounter
--- OUTSIDE RECORDS SUMMARY | 2025-05-19 09:19 | XMS_ITS | Encounter Summary ---
Author Organization [employer] Address [address] [facility] 7t [place] [address] Care Team Providers Care Park Attendant Name Role Phone Wendy Pang MD Primary Care Pro vider Encounter Details Date Type Department Care Team (Latest Contact Info) Description 03/15/2025 Results Follow-Up [facility] [address] [place] [address] Wendy Pang MD [address] [place] [address] BI Mammogram Screening Tomosynthesis Bilateral Social History Tobacco Use Types Packs/Day Years [...] as of this encounter Miscellaneous Notes * Result Encounter Note - Wendy Vance MD - 03/15/2025 11:03 AM EDT Will inform normal MM result in her next apt w me in 3 days documented in this encounter Plan of Treatment Upcoming Encounters Date Type Department Care Team (Late st Contact Info) Description 05/19/2025 9:45 AM EDT Office Visit [facility] [address] [place] [address] [phone] Wendy Pang MD [address] [place] [address] documented as of this encounter Visit Diagnoses Not on filedocumented in this encounter Additional Health Concerns Assessment Noted Time PHQ-9 Depression Total Score: 17 025 9:06 AM EDT documented as of this encounter Care Teams Park Attendant Relationship Specialty Start Date End Date Wendy Pang MD [address] [place] [address] [phone] PCP - General Internal Medicine 02/23/23 documented as of this encounter
--- OUTSIDE RECORDS SUMMARY | 2025-05-19 09:19 | XMS_ITS | Clinical Summary ---
Author Organization [employer] Address [address] [facility] [place] [address] Care Team Providers Care Steelworker Name Role Phone Wendy Pang MD Primary Care Pro vider Allergies No known active allergies Medications * This document contains information received from the source organization and may not represent a complete record from that organization. Blood Pressure kit 1 Device Once per day. 1 kit 04/28/20 24 Active ibuprofen 800 MG tablet 800 mg. Active losartan-hydroC HLOROthiazide (Hyzaar) 100-12.5 MG tablet TAKE 1 TABLET BY MOUTH EVERY DAY 90 tablet 3 10/16/19 25 Active traZODone (Desyrel) 50 MG tabletIndicatio ns:PTSD (post-traumatic stress disorder) Take 0.5 tablets (25 mg) by mouth at bedtime. May take 1 tablet (50 mg) by mouth at bedtime as needed. 20 tablet 11/17/19 25 Active polyvinyl alcohol (Liquifilm Tears) 1.4 % ophthalmic solutionIndicat ions:Dry eyes, bilateral Administer 1 drop into both eyes if needed for dry eyes. 15 mL 5 12/02/19 25 Active DULoxetine (Cymbalta) [address] capsuleIndicati ons:PTSD (post-traumatic stress disorder) TAKE 1 CAPSULE BY MOUTH TWICE DAILY IN THE MORNING AND IN THE EVENING DO NOT BREAK, CRUSH, DISSOLVE OR CHEW 60 capsule 2 03/12/20 25 Active pregabalin (Lyrica) 150 MG capsuleIndicati ons:Polyarthral jin Take 1 capsule (150 mg) by mouth 2 times daily. 60 capsule 2 03/16/20 25 026 Active Tirzepatide-Alessandro ght Management (Zepbound) 15 MG/0.5ML solution auto-injector Inject 0.5 mL (15 mg) under the skin 1 (one) time per week. 6 mL 3 03/16/20 25 026 Active melatonin 5 MG tablet Take 1 tablet (5 mg) by mouth at bedtime. 90 tablet 03/18/20 25 026 Active ezetimibe (Zetia) 10 MG tablet Take 1 tablet (10 mg) by mouth Once per day. 90 tablet 03/24/20 25 026 Active lidocaine (Lidoderm) 5 % patchIndication s:Sprain of anterior talofibular ligament of left ankle, initial encounter Apply 1 patch topically Once per day. Remove & discard patch within 12 hours or as directed by MD. 30 patch 04/07/20 25 Active cetirizine (ZyrTEC) 10 MG tablet TAKE 1 TABLET BY MOUTH EVERY EVENING 90 tablet 04/09/20 25 Active levothyroxine (Synthroid, Levoxyl) 88 MCG tablet TAKE 1 TABLET BY MOUTH EVERY MORNING BEFORE BREAKFAST 90 tablet 1 05/12/20 25 Active levothyroxine (Synthroid) 88 MCG tablet Take 1 tablet (88 mcg) by mouth before breakfast. 30 tablet 3 01/23/20 25 025 Discontinued Active Problems Problem Noted Date Diagnosed Date Sprain of anterior talofibular ligament of left ankle 04/07/2025 Assessment & Plan (04/07/2025 11:23 AM EDT): Elevate the leg apply ice and rest Lidocaine patch prescribed Acetaminophen as needed X-ray ordered patient will be contacted with results Weakness generalized 03/22/[address] of the [...] (Eric Ruff) and has a therapist in [place] (agency unknown). Pt will continue current treatment [...] . Jocelin is currently connected with psychopharmacology (rEic Ruff) and has a therapist in [place] (agency unknown). Pt will continue current treatment including psychotherapy and medication management. clinician will provide additional support as needed during next medical appointment. Pt will practice grounding techniques for anxiety. MACARIO (obstructive sleep apnea) 11/13/2022 Cervical disc disease 11/13/2022 Constipation 11/13/2022 Encounters Date Type Department Care Team Description 05/18/[address] [facility] [address] [place] [phone] Wendy Pang MD 05/11/[address] [address] Wendy Pang MD 04/12/2025 Results Follow-Up [address] [address] Wendy Martell MD XR Ankle 3+ Views Left 04/09/[address] [address] Wendy Pang MD 04/07/2025 11:00 AM EDT Office Visit [facility] [address] [place] [phone] Wendy Maretll MD Sprain of anterior talofibular ligament of left ankle, initial encounter 04/07/2025 Travel 04/01/[address] [facility] [address] [place] [phone] Guadalupe Grimes, RN Results 03/30/[address] [address] Wendy Pang MD Durable Medical Equipment 03/25/2025 Orders Only [facility] [address] [place] [address] [place] [address] Wendy Pang MD 03/25/2025 Orders Only [facility] [address] [place] [address] Mcyhal Raymond MD 03/24/2025 Orders Only [facility] [address] [place] [phone] Wendy Pang MD Mixed hyperlipidemia (Primary Dx) 03/24/2025 Orders Only [facility] [address] [place] [phone] Wendy Pang MD 03/22/[address] [address] Wendy Pang MD Durable Medical Equipment 03/19/2025 Results Follow-Up [address] [address] Wendy Pang MD Urinalysis Complete, Creatine Kinase, Total, Lactate Dehydrogenase (LD), Additional followed-up results: 3 03/19/[address] [place] [address] Wendy Pang MD Prior Authorization 03/18/2025 11:30 AM EDT Office Visit [address] [address] Wendy Pang MD Pulsatile tinnitus of both ears (Primary Dx); Prediabetes; Primary hypertension; Mixed hyperlipidemia; Class 2 severe obesity due to excess calories with serious comorbidity and body mass index (BMI) of 39.0 to 39.9 in adult ([facility]); Transaminitis; Health care maintenance; Fibromyalgia; Bilateral carpal tunnel syndrome; Leg mass, left; Weakness generalized 03/18/2025 Travel 03/17/[address] [place] [address] Wendy Pang MD chart prep 03/16/2025 Orders Only [facility] [address] [place] [address] Wendy Pang MD 03/16/[address] [facility] [address] [place] [address] Wendy Pang MD Polyarthralgia 03/15/2025 Results Follow-Up [facility] [address] [place] [phone] Wendy Pang MD BI Mammogram Screening Tomosynthesis Bilateral 03/15/[address] [facility] [address] [place] [address] Wendy Pang MD Polyarthralgia 03/12/[address] [facility] [address] [place] [address] Wendy Pagn MD Polyarthralgia 03/12/[address] [facility] [address] [place] [address] Anita Oliva MD PTSD (post-traumatic stress disorder) 03/04/2025 Orders Only [facility] [address] [place] [phone] Wendy Pang MD 02/26/2025 Patient Outreach [facility] [address] [place] [phone] Wendy Pang MD Care Coordination (CH[facility] outreach for SDOH PT-1 and food needs-referral completed /) 02/26/[address] [facility] [address] [place] [phone] Wendy Pang MD PT1 02/23/2025 Orders Only [facility] [address] [place] [address] Wendy Pang MD Chronic bilateral low back pain with bilateral sciatica (Primary Dx) 02/22/[address] [facility] [address] [place] [phone] Wendy Pang MD Referral 02/18/[address] [facility] [address] [place] [phone] Lana Obrien, RITA Unspecified Eustachian tube disorder, left ear 02/17/2025 Orders Only [facility] [address] [place] [address] Wendy Pang MD 02/17/[address] [facility] [address] [place] [address] Anita Oliva MD from Last 3 Months Immunizations Immunization Administration Dates Next Due Hep B, Dialysis 02/22/2025 Influenza, seasonal, injectable, preservative fr ee 06/16/2024 [...] Sign Reading Time Taken Comments Blood Pressure 138/74 04/07/2025 10:04 AM EDT Pulse 88 04/07/2025 10:04 AM EDT Temperature 36.8 C (98.2 F) 04/07/2025 10:04 AM EDT Respiratory Rate 18 04/07/2025 10:04 AM EDT Oxygen Saturation 97% 04/07/2025 10:04 AM EDT Inhaled Oxygen Concentration - - Weight 87.1 kg (192 lb) 04/07/2025 10:04 AM EDT Height 154.9 cm (5' 1 ) 03/18/2025 11:33 AM EDT Body Mass Index 36.28 03/18/2025 11:33 AM EDT Plan of Treatment Upcoming Encounters Date Type Department Care Team (Late st Contact Info) Description 05/19/2025 9:45 AM EDT Office Visit [facility] [address] [place] [phone] Wendy Pang MD [address] [place] [address] Health Maintenance Due Date Last Done Comments CT Colonography 1970 FIT DNA/Cologuard 1970 FIT 1970 FOBT 1970 Sigmoidoscopy 1970 Diabetes: Foot Exam 1980 Pneumococcal Vaccine: 50+ Years (1 of 2 - PCV) 1989 Colonoscopy 01/09/2024 Colorectal Cancer Screening 01/09/2024 Hepatitis B Vaccines (2 of 3 - 19+ 3-dose series) 03/22/2025 02/22/2025 COVID-19 Vaccine (1 - season) 2025 Influenza Vaccine (#1) 2025 06/16/2024 Depression Monitoring [...] 02/16, 01/21/2023, Additional history exists Tobacco Screening 04/07/2026 04/07/2025 Eye Exam 12/01/2026 12/01/2024, 11/17, 12/01/2024, Additional [...] Procedure Name Priority Date/Time Associated Diagnosis Comments AMB REFERRAL TO SLEEP MEDICINE Routine 05/12/2025 Loud snoring XR ANKLE 3+ VIEWS LEFT Routine 5 9:08 AM EDT Sprain of anterior talofibular ligament of left ankle, initial encounter NERVE CONDUCTION TEST Routine 04/01/2025 Elevated CPK Neuropathy PROTEIN, TOTAL AND PROTEIN ELECTROPHORESIS Routine 03/19/2025 [...] TOMOSYNTHESIS BILATERAL Routine 03/04/2025 9:26 AM EDT LIPID PANEL, STANDARD Routine 01/22/2025 12:19 PM EDT Hypothyroidism, unspecified type HM PAP/HPV Routine 01/04/2025 9:22 AM EDT [...] Recently Relevant to Health Maintenance Results * Referral to Sleep Medicine (05/12/2025) Wendy Vance MD OUTPATIENT REFERR AL ORDERABLES Final Result * XR Ankle 3+ Views Left (04/08/2025 9:08 AM EDT) Anatomical Region Laterality Modality Lower Extremities, Ankle Left Radiogr aphic Imaging 04/08/2025 9:08 AM EDT Narrative 04/08/2025 9:26 AM EDT [address] [address] XRay Report Signed Patient: Jocelin Auguste R#: [id number] : 1970 Acct:[id number] Age/Sex: 54 / F ADM Date: 04/08/25 Loc: HO.HHCX Attending Dr: Wendy Claudio MD Ordering Physician: Wendy Martell MD Date of Service: 04/08/25 Procedure(s): XR ankle LT min 3V Accession Number(s): [id number] cc: Wendy Martell MD; Wendy Pang MD EXAMINATION: XR ANKLE, LEFT CLINICAL INFORMATION: pain/sprain COMPARISON: None available. TECHNIQUE: AP, lateral, and mortise views of the left ankle. FINDINGS: No acute cortical disruption or malalignment. No lytic or blastic lesions. Small joint effusion, anterior tibiotarsal bursa. Soft tissue edema/contusion, lateral malleolus. Plantar calcaneal spur. Small exostosis at the Achilles tendon insertion. Small punctate calcifications in the soft tissues of the left lower extremity probably venous. No subcutaneous emphysema. No metallic or radiopaque foreign body. XR/XR ankle LT min 3V IMPRESSION: Soft tissue contusion/edema, lateral malleolus, left ankle. Small joint effusion, anterior tibiotarsal bursa. No acute fracture or dislocation. Plantar calcaneus spur. Electronically signed by: Jero Nickerson MD 04/08/2025 09:23 AM EDT RP Dictated By: Jero Avilez MD Signed By: <Electronically signed by Jero Grimes MD in OV> 04/08/2523 DD/ 7 TD/TT: 04/08/2514 Internal Medicine Veterinary Technician: Procedure Note Donotuseinterpreter, Image - 04/08/[address] [address] XRay Report Signed Patient: Jo Auguste R#: [id number] : 1970Acct:[id number] Age/Sex: 54 / FADM Date: 04/08/25 Loc: HO.HHCX Attending Dr: Wendy Claudio MD Ordering Physician: Wendy Martell MD Date of Service: 04/08/25 Procedure(s): XR ankle LT min 3V Accession Number(s): [id number] cc: Wendy Martell MD; Wendy Pang MD EXAMINATION: XR ANKLE, LEFT CLINICAL INFORMATION: pain/sprain COMPARISON: None available. TECHNIQUE: AP, lateral, and mortise views of the left ankle. FINDINGS: No acute cortical disruption or malalignment. No lytic or blastic lesions. Small joint effusion, anterior tibiotarsal bursa. Soft tissue edema/contusion, lateral malleolus. Plantar calcaneal spur. Small exostosis at the Achilles tendon insertion. Small punctate calcifications in the soft tissues of the left lower extremity probably venous. No subcutaneous emphysema. No metallic or radiopaque foreign body. XR/XR ankle LT min 3V IMPRESSION: Soft tissue contusion/edema, lateral malleolus, left ankle. Small joint effusion, anterior tibiotarsal bursa. No acute fracture or dislocation. Plantar calcaneus spur. Electronically signed by: Jero Nickerson MD 04/08/2025 09:23 AM EDT RP Dictated By: Jero Avilez MD Signed By: <Electronically signed by Jero Grimes MDin OV> 04/08/25922 DD/ 7 TD/TT: 04/08/25913 Internal Medicine Veterinary Technician: us Wendy Claudio MD IMG XR PROCEDURES Fin al Result * Nerve conduction test (04/01/2025) us Wendy Vance MD NEUROLOGY ORDERAB LES Final Result * Myositis Specific 11 Antibody Panel (03/19/2025 11:14 AM EDT) Liv-1 Ab <11 <11 [facility] Pl-7 Ab <11 <11 [facility] Pl-12 Ab <11 <11 [facility] Ej Ab <11 <11 [facility] Oj Ab <11 <11 [facility] SRP Ab <11 <11 [facility] Mi-2 alpha Ab <11 <11 [facility] Mi-2 beta Ab <11 <11 [facility] MDA5 Ab <11 <11 [facility] TIF1 gamma Ab <11 <11 [facility] NXP-2 (MJ) Ab <11 <11 [facility] Comment: Myositis-specific autoantibodies (MSAs) are highlyselective, generally mutually exclusive, and areassociated with a particular clinical phenotypewithin the myositis spectrum.Anti-synthetase syndrome is associated with MSAs tocytoplasmic enzymes and tRNAs involved with thesynthesis of proteins. Target antigens include Ilv-1,PL-7, PL-12, EJ, and OJ. Clinically, anti-synthetasesyndrome is primarily characterized by myositis andlung inflammation.Dermatomyositis is associated with MSAs to SRP, Mi-2A,Mi-2B, and clinically this disease is characterized bymyositis in association with a rash. Additionally, MSAsto MDA5 ([id number]) have been identified in patients withclinically amyopathic [...] its analytical performancecharacteristics have been determined by [employer]. It has not been cleared or approved bythe FDA. This assay has been validated pursuant to theIA regulations and is used for clinical purposes.THIS TEST WAS PERFORMED AT:[email or web address] [id number] [place] [address]ZSVDIVALENTÍN JUNE MD,PHD,DAVID Blood Venous blood specimen / Unknown 03/19/2025 11:14 AM EDT 03/19/2025 12:09 PM EDT us Wendy Vance MD LAB BLOOD ORDERAB LES Final Result [facility] [address] [place] [address] [phone] * Aldolase (03/19/2025 11:14 AM EDT) Aldolase 6.3 <=8.1 U/L [facility] Comment:THIS TEST WAS PERFOR MED AT:[email or web address] [id number] [place] [address]LTTPLUJBEN JERNIGAN MD,PHD Blood Venous blood specimen / Unknown 03/19/2025 11:14 AM EDT 03/19/2025 12:17 PM EDT us Wendy Vance MD LAB BLOOD ORDERAB LES Final Result Performing Organization Address [facility]/ZIP Co de Phone Number [facility] [address] [place] [phone] [phone] * (ABNORMAL) Urinalysis Complete (03/19/2025 11:14 AM EDT) Color Urine Dark Yellow [facility] Appearance Urine Clear [facility] PH 5.5 5.0 - 9.0 [facility] Glucose Urine UA Negative Negative mg/dL [facility] Urine Blood Negative Negative [facility] Specific [place] - Urine >=1.030(H) 1.005 - 1.025 [facility] Urine Protein Trace Neg-Trace mg/dL [facility] Urine Ketones Trace Negative mg/dL [facility] Nitrite Urine Negative Negative [facility] Leukocyte Esterase Urine Negative Negative [facility] RBC Urine 0-2 0 - 2 /HPF [facility] Urine WBC 0-5 0 - 5 /HPF [facility] Urine Squamous Epithelial Cell 0-2 0 - 2 /HPF [facility] Urine Bacteria None Seen None Seen [facility] Hyaline Casts, Urine 0-2 0 - 2 /LPF [facility] Urine (Urine, Random) 03/19/2025 11:14 AM EDT 03/19/2025 11:56 AM EDT Wendy Vance MD LAB URINE ORDERAB LES Final Result Performing Organization Address [facility]/ZIP Co de Phone Number [facility] [address] [place] [phone] * Protein, Total and Protein??Electrophoresis (03/19/2025 11:14 AM EDT) Prot Elec - Total Protein 7.3 6.1 - 8.1 g/dL [facility] Prot Elec - Albumin 4.2 3.8 - 4.8 g/dL [facility] Prot Elec - Alpha1 0.3 0.2 - 0.3 g/dL [facility] Prot Elec - Alpha2 0.8 0.5 - 0.9 g/dL [facility] Prot Elec - Beta 1 0.4 0.4 - 0.6 g/dL [facility] Prot Elec - Beta 2 0.5 0.2 - 0.5 g/dL [facility] Prot Elec - Gamma 1.1 0.8 - 1.7 g/dL [facility] PES - Abn Protein Band 1 TNP [facility] PES-Abn Protein Band [address] [facility] P[facility]-Abn Protein Band 3 [facility] Prot Elec - Interpretation SEE NOTE [facility] Comment:Normal Serum Protein Electrophoresis Pattern.No abnormal protein bands (M-protein) detected.THIS TEST WAS PERFORMED AT:[employer] [address] [id number] DAN MD Blood Venous blood specimen / Unknown 03/19/2025 11:14 AM EDT 03/19/2025 12:09 PM EDT Wendy Vance MD LAB BLOOD ORDERAB LES Final Result [facility] [address] [place] [address] [phone] * Lactate Dehydrogenase (LD) (03/19/2025 11:14 AM EDT) Lactate Dehydrogenase 214 122 - 220 U/L [facility] Blood Venous blood specimen / Unknown 03/19/2025 11:14 AM EDT 03/19/2025 12:17 PM EDT Wendy Vance MD LAB BLOOD ORDERAB LES Final Result Performing Organization Address City/[facility]/ZIP Co de Phone Number [facility] [address] [place] [phone] * (ABNORMAL) Creatine Kinase, Total (03/19/2025 11:14 AM EDT) Creatine Kinase Total 172(H) 26 - 140 U/L [facility] Blood Venous blood specimen / Unknown 03/19/2025 11:14 AM EDT 03/19/2025 12:17 PM EDT Wendy Vance MD LAB BLOOD ORDERAB LES Final Result Performing Organization Address [facility]/ZIP Co de Phone Number [facility] [address] [place] [phone] * POCT Glucose (03/18/2025 11:55 AM EDT) Glucose Blood, POC 94 60 - 200 mg/dL [employer] Lot # [id number] Lot# Expiration Date Blood Capillary blood specimen / Unknown 03/18/2025 11:55 AM EDT Wendy Vance MD POINT OF CARE PAR[place] T ENTER/EDIT ORDERABLES Final Result * POCT HGB A1C (03/18/2025 11:54 AM EDT) Hemoglobin A1C 5.4 4.0 - 5.7 % QC Media Lot # [id number] Lot# Expiration Date Blood 03/18/2025 11:5 4 AM EDT Wendy Vance MD POINT OF CARE [place] T ENTER/EDIT ORDERABLES Final Result * BI Mammogram Screening Tomosynthesis Bilateral (03/04/2025 9:26 AM EDT) Anatomical Region Laterality Modality Breast Bilateral Mammography 03/04/2025 9:26 AM EDT Narrative 03/15/2025 10:34 AM EDT [facility] [address] [place], [place] [address] Mammography Report Signed Patient: Jocelin Auguste R#: [id number] : 1970 Acct:[id number] Age/Sex: 54 / F ADM Date: 03/04/25 Loc: HO.MAMMO Attending Dr: Wendy Vance MD Ordering Physician: Wendy Pang MD Re sults: 1Negative Date of Service: 03/04/25 Follow Up: 1 Year From Orig inal Mammogram Procedure(s): MM tomosynthesis screening BI Accession Number(s): [id number] cc: Wendy Pang MD EXAMINATION: MM SCREENING [...] 03/15/25 1031 DD/ 0926 TD/TT: 03/04/25 0949 Internal Medicine Veterinary Technician: Procedure Note Donotuseinterpreter, Image - 03/15/20[facility] [address] [place] [address] Mammography Report Signed Patient: Jo Auguste R#: [id number] : 1970Acct:[id number] Age/Sex: 54 / FADM Date: 03/04/25 Loc: HO.MAMMO Attending Dr: Wendy Vance MD Ordering Physician: Wendy Pang sults: 1Negative Date of Service: 03/04/25Follow Up: 1 Year From Orig inal Mammogram Procedure(s): MM tomosynthesis screening BI Accession Number(s): [id number] cc: Wendy Pang MD EXAMINATION: MM SCREENING [...] 03/15/25 1031 DD/ 0926 TD/TT: 03/04/25 0949 Internal Medicine Veterinary Technician: us Wendy Vance MD IMG BI PROCEDURES Final Result * Lipid Panel, Standard (01/22/2025 12:19 PM EDT) Triglycerides 101 <150 mg/dL [facility] Comment:Desirable Triglyceri de: less than 150 mg/dLBorderline High Triglyceride 150-199 mg/dLHigh Triglyceride: 200-499 mg/dLVery High Triglyceride: greater than or equal to 5OO mg/dL Cholesterol 159 <200 mg/dL [facility] Comment:Desirable Cholestero l: less than 200 mg/dLBorderline High Cholesterol: 200-239 mg/dLHigh Cholesterol: greater than 239 mg/dL LDL Cholesterol Calculated 97 <100 mg/dL [facility] Comment:Desirable LDL: less than 100 mg/dLNear Optimal/Above Optimal LDL: 110- 129 mg/dLBorderline High LDL: 130-159 mg/dLHigh LDL: 160-189 mg/dLVery High LDL: greater than or equal to 190 mg/dL HDL Cholesterol 42 >40 mg/dL [facility] Comment:Desirable HDL: great er than 40 mg/dL Note: This HDL assay may give artificially low results in patients with liver disease. Blood Venous blood specimen / Unknown 01/22/2025 12:19 PM EDT 01/22/2025 12:19 PM EDT Wendy Vance MD LAB BLOOD ORDERAB LES Final Result [facility] [address] [place] [phone] * HM PAP/HPV (01/04/2025 9:22 AM EDT) Only the most recent of2 resultswithin the time period is included. Historical Provider HEALTH MAINTENANCE Final Result * Albumin, Random Urine W/Creatinine (06/12/2024 11:40 AM EDT) Creatinine, Urine 195.62 mg/dL [facility] Microalbumin Urine 41.0 mg/L [facility] Microalbum Creatinine Ratio Ur 20.9 <30 ug/mg cr [facility] Comment:Albumin/Creatinine R atio Reference Ranges: Normal: < 30 ug/mg creatinine Microalbuminuria: 30 - 300 ug/mg creatinineClinical Albuminuria: > 300 ug/mg creatinine Urine (Urine, Random) 06/12/2024 11:40 AM EDT 06/12/2024 1:08 PM EDT us Wendy Vance MD LAB URINE ORDERAB LES Final Result Performing Organization Address [facility] Co de Phone Number [facility] [address] [place] [phone] * Hepatitis C Antibody with Reflex to HCV, RNA, Quantitative, Real-Time PCR (06/12/2024 11:39 AM EDT) Hepatitis C Antibody Nonreactive Nonreactive [facility] Comment:Antibodies to HCV no t detected; does not exclude early acuteHCV infection. Blood Venous blood specimen / Unknown 06/12/2024 11:39 AM EDT 06/12/2024 1:19 PM EDT us Wendy Vance MD LAB BLOOD ORDERAB LES Final Result Performing Organization Address [facility] Co de Phone Number [facility] [address] [place] [phone] * HIV-1/2 Antigen and Antibodies, Fourth Generation, with Reflexes (06/12/2024 11:39 AM EDT) HIV AB/AG Nonreactive Nonreactive [facility] Comment:HIV-1 p24 Ag and/or HIV-1/HIV-2 Ab not detected.A test result that is nonreactive does not exclude thepossibility of exposure to or infection with HIV-1 and/orHIV-2. Nonreactive results in this assay for individualswith prior exposure to HIV-1 and/or HIV-2 may be due toantigen and antibody levels that are below the limit ofdetection of this assay.The [email or web address] HIV Ag/Ab Combo assay result andsupplemental assay results should be interpreted inconjunction with the patient's clinical presentation,history and other laboratory results. If the results areinconsistent with clinical evidence, additional testing issuggested to confirm the result. Blood Venous blood specimen / Unknown 06/12/2024 11:39 AM EDT 06/12/2024 1:19 PM EDT us Wendy Vance MD LAB BLOOD ORDERAB LES Final Result [facility] [address] [place] [address] [phone] * Colposcopy (02/11/2024 9:20 AM EDT) us Historical Provider MD IN CLINIC/BEDSIDE ORDERAB LES Edited Result - Final from Last 3 Months or Most Recently Relevant to Health Maintenance Insurance [facility] C3 Care Teams Steelworker Relationship Specialty Start Date End Date Wendy Pang MD [address] [place] [address] [place] [address] PCP - General Internal Medicine 02/23/23
--- OUTSIDE RECORDS SUMMARY | 2025-05-19 09:19 | XMS_ITS | Encounter Summary ---
Author Organization [employer] Address [address] [place] [address] 7 [place] [address] Care Team Providers Care Instant Potato Processor Name Role Phone Wendy Martell MD Primary Care Provide r Wendy Pang MD Primary Care Pro vider Encounter Details Date Type Department Care Team (Late Contact Info) Description 02/18/2023 Orders Only [facility] [address] [place] [phone] Jordana Jose CNM [address] [place] [address] Social History Tobacco Use Types Packs/Day Years [...] Description 05/19/2025 9:45 AM EDT Office Visit [facility] [address] [place] [phone] Wendy Pang MD [address] [place], [place] [phone] documented as of this encounter Procedures Procedure Name Priority Date/Time Associated Diagnosis Comments COLPOSCOPY Routine 01/31/2023 12:00 AM EDT documented in this encounter Results * Colposcopy (01/31/2023 12:00 AM EDT) us Ronni Bautista MD IN CLINIC/BEDSIDE ORDERABLES Fin al Result [facility] [address] [place] [address] [phone] documented in this encounter Visit Diagnoses Not on filedocumented in this encounter Care Teams Instant Potato Processor Relationship Specialty Start Date End Date Wendy Martell MD [address] [place] [address] PCP - General Internal Medicine 11/22/22 02/22/23 Wendy Pang MD [address] [place] [address] PCP - General Internal Medicine 02/23/23 documented as of this encounter
--- OUTSIDE RECORDS SUMMARY | 2025-05-19 09:19 | XMS_ITS | Encounter Summary ---
Author Organization [employer] Address 75 [facility] 7[address] [place] [address] Care Team Providers Care Engine Testing Supervisor Name Role Phone Wendy Pang MD Primary Care Pro vider Reason for Visit * Reason Comments Med Refill Encounter Details Date Type Department Care Team (Late st Contact Info) Description 03/15/2025 Refill [facility] [address] [place] [address] Wendy Pang MD [address] [place] [address] Polyarthralgia Social History Tobacco Use Types Packs/Day [...] encounter Miscellaneous Notes * Telephone Encounter - Wendy Vance MD - 03/16/2025 3:16 PM EDT Ordered next zepbound dose 15 mg documented in this encounter Plan of Treatment Upcoming Encounters Date Type Department Care Team (Late st Contact Info) Description 05/19/2025 9:45 AM EDT Office Visit [facility] [address] [place] [address] Wendy Pang MD [address] [place] [address] documented as of this encounter Visit Diagnoses Diagnosis Polyarthralgia Pain in joint, multiple sites documented in this encounter Additional Health Concerns Assessment Noted Time PHQ-9 Depression Total Score: 17 025 9:06 AM EDT documented as of this encounter Care Teams Engine Testing Supervisor Relationship Specialty Start Date End Date Wendy Pang MD [address] [place] [address] [phone] PCP - General Internal Medicine 02/23/23 documented as of this encounter
--- OUTSIDE RECORDS SUMMARY | 2025-05-19 09:20 | XMS_ITS | Encounter Summary ---
Author Organization [employer] Address [address] [facility] [address] 7t [place] [address] Care Team Providers Care Manager Semiconductor Name Role Phone Wendy Pang MD Primary Care Pro vider Encounter Details Date Type Department Care Team (Late st Contact Info) Description 09/29/2024 Orders Only [facility] [address] [place] [address] Provider, MD Mychal Social History Tobacco Use [...] with others, in a hotel, in a group home, living outside on the street, on [...] the past 12 months, has t he [employer], gas, oil or water [employer] [facility] threatened to shut off services in your [...] Visit [facility] [address] [place] [address] [phone] Wendy Pang MD [address] [place] [address] [phone] documented as of this encounter Procedures Procedure Name Priority Date/Time Associated Diagnosis Comments COLPOSCOPY Routine 02/11/2024 9:20 AM EDT HM PAP/HPV Routine 01/09/2024 9:20 AM EDT documented [...] as of this encounter Care Teams Manager Semiconductor Relationship Specialty Start Date End Date Wendy Pang MD [address] [place] [phone] PCP - General Internal Medicine 02/23/23 documented as of this encounter
--- OUTSIDE RECORDS SUMMARY | 2025-05-19 09:20 | XMS_ITS | Encounter Summary ---
Author Organization [employer] Address [address] [facility] [address], [place] [address] Care Team Providers Care Trim Setter Helper Name Role Phone Wendy Pang MD Primary Care Pro vider Reason for Visit * Reason Onset Date Comments PT-1 08/04/2024 Encounter Details Date Type Department Care Team (Late st Contact Info) Description 08/04/2024 Telephone [facility] [address] [place] [address] Wendy Pang MD [address] [place] [address] PT-1 Social History Tobacco Use Types Packs/Day [...] Description 05/19/2025 9:45 AM EDT Office Visit [facility] [address] [place] [address] Wendy Pang MD [address] [place] [address] documented as of this encounter Visit Diagnoses Not on filedocumented in this encounter Additional Health Concerns Assessment Noted Time PHQ-9 Depression Total Score: 10 024 1:15 PM EDT documented as of this encounter Care Teams Trim Setter Helper Relationship Specialty Start Date End Date Wendy Pang MD [address] [place] [phone] PCP - General Internal Medicine 02/23/23 documented as of this encounter
--- OUTSIDE RECORDS SUMMARY | 2025-05-19 09:20 | XMS_ITS | Encounter Summary ---
Author Organization [employer] Address [address] [facility] 7t [place] [address] Care Team Providers Care Supervisor Cab Name Role Phone Wendy Pang MD Primary Care Pro vider Encounter Details Date Type Department Care Team (Late st Contact Info) Description 05/18/2025 Telephone [facility] [address] [place], [place] [phone] Wendy Pang MD [address] [place] [address] Social History Tobacco Use Types Packs/Day Years [...] the past 12 months, has t he [employer], gas, oil or water [employer] threatened to shut off services in your [...] encounter Miscellaneous Notes * Telephone Encounter - Fanta Foy MA - 05/18/2025 4:08 PM EDT Chart Prep Labs: done Images: done Referrals: appointment pending Ortho appointment 05/20/25 Radiology appointment 06/17/25 Vaccines due: Covid, Flu, and Hep B Screenings: colonoscopy and foot exam Overdue care gaps: Not applicable documented in this encounter Plan of Treatment Upcoming Encounters Date Type Department Care Team (Late st Contact Info) Description 05/19/2025 9:45 AM EDT Office Visit [facility] [address] [place] [address] Wendy Pang MD [address] [place] [phone] documented as of this encounter Visit Diagnoses Not on filedocumented in this encounter Additional Health Concerns Assessment Noted Time PHQ-9 Depression Total Score: 17 025 9:06 AM EDT documented as of this encounter Care Teams Supervisor Cab Relationship Specialty Start Date End Date Wendy Pang MD [address] [place] [phone] PCP - General Internal Medicine 02/23/23 documented as of this encounter
--- OUTSIDE RECORDS SUMMARY | 2025-05-19 09:20 | XMS_ITS | Encounter Summary ---
Author Organization [employer] Address [address] [facility] [address], [place] [address] Care Team Providers Care Residential Leasing Agent Name Role Phone Wendy Pang MD Primary Care Pro vider Reason for Visit * Reason Onset Date Comments Med Refill 07/13/2024 Encounter Details Date Type Department Care Team (Late st Contact Info) Description 07/13/2024 Telephone [facility] [address] [place] [address] Wendy Pang MD 230 [place] [address] Med Refill Social History Tobacco Use Types [...] AM EST Medication was sent to [facility] on 06/16/24 0.25 mg dose and 0.5 mg. * Telephone Encounter - Chad Kim - 07/13/2024 11:18 AM EST TC from pt requesting medication refill. Medications needing refill: Semaglutide-Weight Management (Wegovy) 0.25 MG/0.5ML solution auto-injector To be sent to: [facility] - [place], [place] - [address] [place] [address] documented in this encounter Plan of Treatment Upcoming Encounters Date Type Department Care Team ([facility] st Contact Info) Description 05/19/2025 9:45 AM EDT Office Visit [facility] [address] [place] [address] Wendy Pang MD [address] [place] [address] documented as of this encounter Visit Diagnoses Not on filedocumented in this encounter Additional Health Concerns Assessment Noted Time PHQ-9 Depression Total Score: 10 024 1:15 PM EDT documented as of this encounter Care Teams Residential Leasing Agent Relationship Specialty Start Date End Date Wendy Pang MD [address] [place] [phone] PCP - General Internal Medicine 02/23/23 documented as of this encounter
--- OUTSIDE RECORDS SUMMARY | 2025-05-19 09:20 | XMS_ITS | Encounter Summary ---
Author Organization [employer] Address [address] [facility] [address] 7t [place] [address] Care Team Providers Care Family Life Educator Name Role Phone eWndy aPng MD Primary Care Pro vider Reason for Visit * Reason Comments Med Refill Encounter Details Date Type Department Care Team (Late st Contact Info) Description 02/18/2025 Refill [facility] 230 [place], [place] [phone] Lana Obrien NP 230 [place] [address] Unspecified Eustachian tube disorder, left ear Social History Tobacco Use Types Packs/Day Years [...] 9:45 AM EDT Office Visit [facility] [address] [place] [address] Wendy Pang MD [address] [place] [address] documented as of this encounter Visit Diagnoses Diagnosis Unspecified Eustachian tube disorder, left ear documented in this encounter Additional Health Concerns Assessment Noted Time PHQ-9 Depression Total Score: 17 025 9:06 AM EDT documented as of this encounter Care Teams Family Life Educator Relationship Specialty Start Date End Date Wendy Pang MD [address] [place] [phone] PCP - General Internal Medicine 02/23/23 documented as of this encounter
--- OUTSIDE RECORDS SUMMARY | 2025-05-19 09:20 | XMS_ITS | Encounter Summary ---
Author Organization [employer] Address [address] [facility] [address] [address] Care Team Providers Care Brick Extruder Operator Name Role Phone Wendy Pang MD Primary Care Pro vider Reason for Visit * Reason Onset Date Comments pt1 12/14/2024 Encounter Details Date Type Department Care Team (Late st Contact Info) Description 12/14/[address] [facility] [address] [place] [address] Wendy Pang MD 230 [place] [address] pt1 Social History Tobacco Use Types Packs/Day Years [...] * Telephone Encounter - Ruiz Cedeno - 12/14/2024 3:48 PM EDT 1- Patient calling requesting PT1 Home Address verified: Y/N: Yes Provider name or facility name: [employer] [address] [facility] [address] Escort needed: Y/N: Yes Do you have a wheelchair: Y/N: No If yes- Manual or electric: Visits: (5) ( x monthly,) 2- Patient calling requesting PT1 Home Address verified: Y/N: Yes Provider name or facility name: [address] [place] [id number] Escort needed: Y/N: Yes Do you have a wheelchair: Y/N: No If yes- Manual or electric: Visits: (5) ( x monthly,) documented in this encounter Plan of Treatment Upcoming Encounters Date Type Department Care Team (Late st Contact Info) Description 05/19/2025 9:45 AM EDT Office [address] [facility] [address] [place], [place] [phone] Wendy Pang MD 230 [place] [address] documented as of this encounter Visit Diagnoses Not on filedocumented in this encounter Additional Health Concerns Assessment Noted Time PHQ-9 Depression Total Score: 17 11/20/ 025 9:06 AM EDT documented as of this encounter Care Teams Brick Extruder Operator Relationship Specialty Start Date End Date Wendy Pang MD [address] [place] [phone] PCP - General Internal Medicine 02/23/23 documented as of this encounter
[2025-05-19 12:02] LABS: Alanine Aminotransferase 34 U/L (0-31); Albumin Level 4.5 g/dL (3.5-5.0); Alkaline Phosphatase 69 U/L (39-117); Anion Gap 12 (12-20); Aspartate Amino Transferase 33 U/L (5-31); Blood Urea Nitrogen 21 mg/dL (9-16); Calcium 9.4 mg/dL (8.4-10.2); Carbon Dioxide 27 mmol/L (22-29); Chloride 109 mmol/L (96-108); Cholesterol 183 mg/dL (<200); Estimated Glomerular Filt Rate > 60; HDL Cholesterol 40 mg/dL (>40); Potassium 3.8 mmol/L (3.3-5.1); Sodium 144 mmol/L (135-145); Total Protein 7.9 g/dL (6.5-8.0); Triglycerides 127 mg/dL (<150)
== END 2025-05-19 08:45 | disposition home or self-care (01) ==
LOC: HO.HHCX 08:44
PROVIDERS: PCP Student in an Organized Health Care Education/Training Program; Referring Provider Student in an Organized Health Care Education/Training Program; Visit Provider Orthopaedic Surgery
DX: E78.2 Mixed hyperlipidemia (principal); M54.2 Cervicalgia
CPT/HCPCS: 36415; 72050; 80053; 80061; 82550

== ENCOUNTER → 2025-05-19 09:02 | Outpatient (BNV) | payer MEDICAID, SELFPAY | PROVIDERS: PCP Student in an Organized Health Care Education/Training Program; Referring Provider Student in an Organized Health Care Education/Training Program; Visit Provider Radiology Diagnostic Radiology | DX: M50.322 Other cervical disc degeneration at C5-C6 level (principal); M50.323 Other cervical disc degeneration at C6-C7 level | CPT/HCPCS: 72050 ==

== ENCOUNTER 2025-05-20 10:45 | Outpatient (REF) | payer MEDICAID, SELFPAY ==
--- NOTE | ~2025-05-20 | XR_ITS ---
EXAMINATION: XR KNEE, LEFT CLINICAL INFORMATION: M25.562 - Pain in left knee COMPARISON: 11/04/2023. TECHNIQUE: Three views of the left knee. FINDINGS: No fracture, dislocation, or suspicious bone lesion. There is normal alignment. Moderate joint space narrowing the medial compartment with mild marginal osteophytic spurring. Lateral compartment osteophytic spurring, and patellofemoral compartment mild spurring is also present. There is spurring of the tibial spines. There is no evidence of joint effusion. There is no soft tissue abnormality. XR/XR knee LT 3V IMPRESSION: 1. No acute findings of the left knee. 2. Tricompartmental osteoarthritis, moderate in the medial compartment. Electronically signed by: Jose Palacios MD 05/20/2025 11:07 AM EDT
--- OUTSIDE RECORDS SUMMARY | 2025-05-20 12:35 | XMS_ITS | Encounter Summary ---
Author Organization [employer] Address [address] [facility] 7t [place] [address] Care Team Providers Care Frame Wirer Name Role Phone Wendy Pang MD Primary Care Pro vider Reason for Visit * Reason Comments Med Refill Encounter Details Date Type Department Care Team (Late st Contact Info) Description 01/20/2025 Refill [facility] 230 [place] [address] Wendy Pang MD 230 [place] [address] Social History Tobacco Use Types Packs/Day Years [...] Care Team (Late st Contact Info) Description 05/28/2025 1:15 PM EDT Office Visit [facility] [address] [place] [address] Wendy Pang MD [address] [place] [address] documented as of this encounter Visit Diagnoses Not on filedocumented in this encounter Additional Health Concerns Assessment Noted Time PHQ-9 Depression Total Score: 17 025 9:06 AM EDT documented as of this encounter Care Teams Frame Wirer Relationship Specialty Start Date End Date Wedny Pang MD [address] [place] [address] PCP - General Internal Medicine 02/23/23 documented as of this encounter
--- OUTSIDE RECORDS SUMMARY | 2025-05-20 12:35 | XMS_ITS | Encounter Summary ---
Author Organization [employer] Address [address] [facility] 7[place] [address] Care Team Providers Care Asphalt Heater Operator Name Role Phone Wendy Pang MD Primary Care Pro vider Reason for Visit * Reason Comments Med Refill Encounter Details Date Type Department Care Team (Late st Contact Info) Description 03/15/[address] [facility] 230 [place] [address] Wendy Pang MD 230 [place] [address] Polyarthralgia Social History Tobacco Use Types Packs/Day [...] Description 05/28/2025 1:15 PM EDT Office Visit [facility] [address] [place] [address] [phone] Wendy Pang MD [address] [place] [address] documented as of this encounter Visit Diagnoses Diagnosis Polyarthralgia Pain in joint, multiple sites documented in this encounter Additional Health Concerns Assessment Noted Time PHQ-9 Depression Total Score: 17 025 9:06 AM EDT documented as of this encounter Care Teams Asphalt Heater Operator Relationship Specialty Start Date End Date Wendy Pang MD [address] [place] [address] [phone] PCP - General Internal Medicine 02/23/23 documented as of this encounter
--- OUTSIDE RECORDS SUMMARY | 2025-05-20 12:35 | XMS_ITS | Encounter Summary ---
Author Organization [employer] Address [address] [facility] 7[place], [place] [address] Care Team Providers Care Nail Professional Name Role Phone Wendy Pang MD Primary Care Pro vider Reason for Visit * Reason Onset Date Comments PT-1 08/04/2024 Encounter Details Date Type Department Care Team (Late st Contact Info) Description 08/04/2024 Telephone [facility] 230 [place] [address] Wendy Pang MD 230 [place] [address] PT-1 Social History Tobacco Use Types Packs/Day [...] Description 05/28/2025 1:15 PM EDT Office Visit [facility] [address] [place] [address] Wendy Pang MD [address] [place] [address] documented as of this encounter Visit Diagnoses Not on filedocumented in this encounter Additional Health Concerns Assessment Noted Time PHQ-9 Depression Total Score: 10 024 1:15 PM EDT documented as of this encounter Care Teams Nail Professional Relationship Specialty Start Date End Date Wendy Pang MD [address] [place] [address] [phone] PCP - General Internal Medicine 02/23/23 documented as of this encounter
--- OUTSIDE RECORDS SUMMARY | 2025-05-20 12:35 | XMS_ITS | Encounter Summary ---
Author Organization [employer] Address [address] 7[address] [place] [address] Care Team Providers Care Tank Bottom Assembler Name Role Phone Wendy Pang MD Primary Care Pro vider Reason for Visit * Reason Comments Med Refill Encounter Details Date Type Department Care Team (Late st Contact Info) Description 01/07/2025 Refill [facility] 230 [place] [address] Wendy Pang MD 230 [place] [address] Type 2 diabetes mellitus without complication, without long-term current use of insulin ([facility]) Social History Tobacco Use Types Packs/Day Years [...] Description 05/28/2025 1:15 PM EDT Office Visit [facility] [address] [place] [address] Wendy Pang MD [address] [place] [phone] documented as of this encounter Visit Diagnoses Diagnosis Type 2 diabetes mellitus without complication, without long-term current use of insulin (HCC) documented in this encounter Additional Health Concerns Assessment Noted Time PHQ-9 Depression Total Score: 17 025 9:06 AM EDT documented as of this encounter Care Teams Tank Bottom Assembler Relationship Specialty Start Date End Date Wendy Pang MD [address] [place] [address] PCP - General Internal Medicine 02/23/23 documented as of this encounter
--- OUTSIDE RECORDS SUMMARY | 2025-05-20 12:35 | XMS_ITS | Encounter Summary ---
Author Organization [employer] Address [address] [facility] [address] [place] [address] Care Team Providers Care Carpenter/Labor Name Role Phone Wendy Pang MD Primary Care Pro vider Encounter Details Date Type Department Care Team (Late st Contact Info) Description 05/19/2025 Orders Only [facility] External Provider, [facility] Social History Tobacco Use Types Packs/Day Years [...] EDT Office Visit [facility]INE [address] [place] [address] Wendy Pang MD [address] [place], [place] [phone] documented as of this encounter Procedures Procedure Name Priority Date/Time Associated Diagnosis Comments XR KNEE 3 VIEWS LEFT Routine 05/20/2025 10:58 AM EDT XR CERVICAL SPINE 4V Routine 05/19/2025 9:02 AM EDT documented in this encounter Results * XR Knee 3 Views Left (05/20/2025 10:58 AM EDT) Anatomical Region Laterality Modality Lower Extremities, Knee Left [facility] 05/20/2025 10:5 8 AM EDT Narrative 05/20/2025 11:10 AM EDT [facility] [address] [place] [address] XRay Report Signed Patient: Jocelin Auguste R#: [id number] : 1970 Acct:[id number] Age/Sex: 54 / F ADM Date: 05/20/25 Loc: HO.HOSX Attending Dr: Cullen Hunter MD Ordering Physician: Cullen Hunter MD Date of Service: 05/20/25 Procedure(s): XR knee LT 3V Accession Number(s): [id number] cc: Wendy Pang MD; Cullen Hunter MD Reason for Exam: M25.562 - Pain in left knee EXAMINATION: XR KNEE, LEFT CLINICAL INFORMATION: M25.562 - Pain in left knee COMPARISON: 11/04/2023. TECHNIQUE: Three views of the left knee. FINDINGS: No fracture, dislocation, or suspicious bone lesion. There is normal alignment. Moderate joint space narrowing the medial compartment with mild marginal osteophytic spurring. Lateral compartment osteophytic spurring, and patellofemoral compartment mild spurring is also present. There is spurring of the tibial spines. There is no evidence of joint effusion. There is no soft tissue abnormality. XR/XR knee LT 3V IMPRESSION: 1. No acute findings of the left knee. 2. Tricompartmental osteoarthritis, moderate in the medial compartment. Electronically signed by: Jose Palacios MD 05/20/2025 11:07 AM EDT Dictated By: Jose Palacios MD Signed By: <Electronically signed by Jose Palacios MD in OV> 05/20/25 1107 DD/ 1058 TD/TT: 05/20/25 1100 Product Managent Intern: Procedure Note Donotuseinterpreter, Image - 05/20/2025 [facility] [address] [facility] [address] [place] [address] XRay Report Signed Patient: Jo Auguste R#: [id number] : 1970Acct:[id number] Age/Sex: 54 / FADM Date: 05/20/25 [facility] Att[facility] Dr: Cullen Hunter MD Ordering Physician: Cullen Hunter MD Date of Service: 05/20/25 Procedure(s): XR knee LT 3V Accession Number(s): [id number] cc: Wendy Pang MD; Cullen Hunter MD Reason for Exam: M25.562 - Pain in left knee EXAMINATION: XR KNEE, LEFT CLINICAL INFORMATION: M25.562 - Pain in left knee COMPARISON: 11/04/2023. TECHNIQUE: Three views of the left knee. FINDINGS: No fracture, dislocation, or suspicious bone lesion. There is normal alignment. Moderate joint space narrowing the medial compartment with mild marginal osteophytic spurring. Lateral compartment osteophytic spurring, and patellofemoral compartment mild spurring is also present. There is spurring of the tibial spines. There is no evidence of joint effusion. There is no soft tissue abnormality. XR/XR knee LT 3V IMPRESSION: 1. No acute findings of the left knee. 2. Tricompartmental osteoarthritis, moderate in the medial compartment. Electronically signed by: Jose Palacios MD 05/20/2025 11:07 AM EDT Dictated By: Jose Palacios MD Signed By: <Electronically signed by Jose Palacios MD in OV> 05/20/25 1107 DD/ 1058 TD/TT: 05/20/25 1100 Product Managent Intern: [facility] External Provider IMG XR PROCEDURES Edited Result - Final * XR CERVICAL SPINE 4V (05/19/2025 9:02 AM EDT) Anatomical Region Laterality Modality Abdomen Radiographic Jeanine ging 05/19/2025 9:02 AM EDT Narrative 05/19/2025 9:42 AM EDT [address] [address] XRay Report Signed Patient: Jocelin Auguste R#: [id number] : 1970 Acct:[id number] Age/Sex: 54 / F ADM Date: 05/19/25 Loc: HO.HHCX Attending Dr: Cullen Hunter MD Ordering Physician: Cullen Hunter MD Date of Service: 05/19/25 Procedure(s): XR cervical spine 4V Accession Number(s): [id number] cc: Wendy Pang MD; Cullen Hunter MD Reason for Exam: PAIN EXAMINATION: XR CERVICAL SPINE CLINICAL INFORMATION: PAIN COMPARISON: None available. TECHNIQUE: 5 views of the cervical spine were obtained. FINDINGS: There is no prevertebral edema. C3-4 demonstrates mild retrolisthesis. There are small uncovertebral osteophytes. C4-5: There are small uncovertebral osteophytes. C5-6: There is mild disc space narrowing with endplate osteophytes. There are small uncovertebral osteophytes. C6-7: There is mild disc space narrowing and endplate sclerosis with osteophytes. There are minute uncovertebral osteophytes. There is mild bony foraminal narrowing bilaterally. C7-T1: Unremarkable. XR/XR cervical spine 4V IMPRESSION: Multilevel degenerative changes are most pronounced at C5-6 and C6-7. Electronically signed by: Brice Pate MD 05/19/2025 09:39 AM EDT RP Dictated By: Brice Pate MD Signed By: <Electronically signed by Brice Pate MD in OV> 05/19/2539 DD/ 1 TD/TT: 05/19/25902 Product Managent Intern: Procedure Note Donotuseinterpreter, Image - 05/19/[address] [address] XRay Report Signed Patient: Jo Auguste R#: [id number] : 1970Acct:[id number] Age/Sex: 54 / FADM Date: 05/19/25 Loc: HO.HHCX Attending Dr: Cullen Hunter MD Ordering Physician: Cullen Hunter MD Date of Service: 05/19/25 Procedure(s): XR cervical spine 4V Accession Number(s): [id number] cc: Wendy Pang MD; Cullen Hunter MD Reason for Exam: PAIN EXAMINATION: XR CERVICAL SPINE CLINICAL INFORMATION: PAIN COMPARISON: None available. TECHNIQUE: 5 views of the cervical spine were obtained. FINDINGS: There is no prevertebral edema. C3-4 demonstrates mild retrolisthesis. There are small uncovertebral osteophytes. C4-5: There are small uncovertebral osteophytes. C5-6: There is mild disc space narrowing with endplate osteophytes. There are small uncovertebral osteophytes. C6-7: There is mild disc space narrowing and endplate sclerosis with osteophytes. There are minute uncovertebral osteophytes. There is mild bony foraminal narrowing bilaterally. C7-T1: Unremarkable. XR/XR cervical spine 4V IMPRESSION: Multilevel degenerative changes are most pronounced at C5-6 and C6-7. Electronically signed by: Brice Pate MD 05/19/2025 09:39 AM EDT RP Dictated By: Brice Pate MD Signed By: <Electronically signed by Brice Pate MD in OV> 05/19/25938 DD/ 1 TD/TT: 05/19/25902 Product Managent Intern: [facility] External Provider IMG XR PROCEDURES Final Result documented in this encounter Visit Diagnoses Not on filedocumented in this encounter Additional Health Concerns Assessment Noted Time PHQ-9 Depression Total Score: 17 04/2 025 9:06 AM EDT documented as of this encounter Care Teams Carpenter/Labor Relationship Specialty Start Date End Date Wendy Pang MD [address] [place] [phone] PCP - General Internal Medicine 02/23/23 documented as of this encounter
--- OUTSIDE RECORDS SUMMARY | 2025-05-20 12:35 | XMS_ITS | Encounter Summary ---
Author Organization [employer] Address [address] [facility] 7t [place] [address] Care Team Providers Care Tamper Operator Name Role Phone Wendy Pang MD Primary Care Pro vider Encounter Details Date Type Department Care Team (Late st Contact Info) Description 08/13/2024 Telephone [facility] MEDICINE [address] [place], [place] [phone] Wendy Pang MD [address] [place] [address] Social History Tobacco Use Types Packs/Day Years [...] Description 05/28/2025 1:15 PM EDT Office Visit [facility] [address] [place] [address] [phone] Wendy Pang MD [address] [place] [phone] documented as of this encounter Visit Diagnoses Not on filedocumented in this encounter Additional Health Concerns Assessment Noted Time PHQ-9 Depression Total Score: 024 1:15 PM EDT documented as of this encounter Care Teams Tamper Operator Relationship Specialty Start Date End Date Wendy Pang MD [address] [place] [address] [phone] PCP - General Internal Medicine 02/23/23 documented as of this encounter
--- OUTSIDE RECORDS SUMMARY | 2025-05-20 12:35 | XMS_ITS | Encounter Summary ---
Author Organization [employer] Address [address] [facility] [address] [place] [address] Care Team Providers Care Supervisor Cleaning And Annealing Name Role Phone Wendy Pang MD Primary Care Pro vider Encounter Details Date Type Department Care Team (Latest Contact Info) Description 05/19/2025 Travel Social History Tobacco Use Types Packs/Day [...] Description 05/28/2025 1:15 PM EDT Office Visit [facility] MEDICINE [address] [place] [address] Wendy Pang MD [address] [place] [address] documented as of this encounter Visit Diagnoses Not on filedocumented in this encounter Additional Health Concerns Assessment Noted Time PHQ-9 Depression Total Score: 17 04/2 025 9:06 AM EDT documented as of this encounter Care Teams Supervisor Cleaning And Annealing Relationship Specialty Start Date End Date Wendy Pang MD [address] [place] [address] [phone] PCP - General Internal Medicine 02/23/23 documented as of this encounter
--- OUTSIDE RECORDS SUMMARY | 2025-05-20 12:35 | XMS_ITS | Encounter Summary ---
Author Organization [employer] Address [address] [facility] 7t [place] [address] Care Team Providers Care Hammerer Tab Name Role Phone Wendy Pang MD Primary Care Pro vider Encounter Details Date Type Department Care Team (Latest Contact Info) Description 03/15/2025 Results Follow-Up [facility] MEDICINE [address] [place] [address] Wendy Pang MD [address] [place] [address] BI Mammogram Screening Tomosynthesis Bilateral Social History [...] Description 05/28/2025 1:15 PM EDT Office Visit [facility] MEDICINE [address] [place] [address] [phone] Wendy Pang MD [address] [place] [address] documented as of this encounter Visit Diagnoses Not on filedocumented in this encounter Additional Health Concerns Assessment Noted Time PHQ-9 Depression Total Score: 17 025 9:06 AM EDT documented as of this encounter Care Teams Hammerer Tab Relationship Specialty Start Date End Date Wendy Pang MD [address] [place] [address] [phone] PCP - General Internal Medicine 02/23/23 documented as of this encounter
--- OUTSIDE RECORDS SUMMARY | 2025-05-20 12:35 | XMS_ITS | Patient Health Record ---
Author Organization [facility] Address [address] [place] [address] Care Team Providers Care Retort Unloader Name Role Phone Michael Muller Primary Care [...] Status W/U Status Risk Notes Problem Cervicalgia (12051675) Cervicalgia (M54.2) Active confirmed Problem Morbid obesity (disorder) (244801953) Morbid (severe) obesity due to excess calories (E66.01) Active confirmed Problem Acquired hypothyroidism (987452479) Acquired hypothyroidism (E03.9) Active confirmed Problem Hyperlipidaemia (14800223) Hyperlipidemia, unspecified hyperlipidemia type (E78.5) Active confirmed Problem Type II diabetes mellitus without complication (699774733) Type 2 diabetes mellitus without complication, without long-term current use of insulin (E11.9) Active confirmed Problem Dysphagia (00141496) Dysphagia, unspecified type (R13.10) Active confirmed Problem Mixed anxiety and depressive disorder (783928150) Depression with anxiety (F41.8) Active confirmed Problem Sleep apnea (37859879) Sleep apnea, unspecified type (G47.30) Active confirmed Problem History of asthma (588590244) History of asthma (Z87.09) Active confirmed Problem Pruritic disorders (708094901) Ear itch (L29.9) Active confirmed Problem Sleep apnea (disorder) (99271962) History of sleep apnea (Z86.69) Active confirmed Problem Body mass index 40+ - severely obese (317352783) Body mass index [BMI] 40.0-44.9, adult (Z68.41) [...] End Date HUSKY A [address] [place], [place] [id number] [phone] Jocelin Talley Self - patient is the insured DENTAL Medicaid HP [address] [place] [address] [id number] Jocelin Talley Self - patient is the insured Medical (General) History Surgical History Surgery Date(Month/Year) c section x 3 bilat tubal Hospitalization History Reason Date(Month/Year) see surgical
--- OUTSIDE RECORDS SUMMARY | 2025-05-20 12:35 | XMS_ITS | Encounter Summary ---
Author Organization [employer] Address [address] [facility] 7t [place] [address] Care Team Providers Care Junior Systems Engineer Name Role Phone Wendy Pang MD Primary Care Pro vider Encounter Details Date Type Department Care Team (Latest Contact Info) Description 05/19/2025 Results Follow-Up [facility]INE [address] [place] [address] Wendy Pang MD [address] [place] [address] Comprehensive Metabolic Panel, Lipid Panel, Standard, Creatine Kinase, Total Social History Tobacco Use Types Packs/Day Years [...] Encounter Note - Wendy Vance MD - 05/19/2025 1:23 PM EDT Please call patient to advise to come to already scheduled apt with me to go over abnormal labs Thanks documented in this encounter Plan of Treatment Upcoming Encounters Date Type Department Care Team (Late st Contact Info) Description 05/28/2025 1:15 PM EDT Office Visit [facility] [address] [place] [address] [phone] Wendy Pang MD [address] [place] [phone] documented as of this encounter Visit Diagnoses Not on filedocumented in this encounter Additional Health Concerns Assessment Noted Time PHQ-9 Depression Total Score: 17 025 9:06 AM EDT documented as of this encounter Care Teams Junior Systems Engineer Relationship Specialty Start Date End Date Wendy Pang MD [address] [place] [address] [phone] PCP - General Internal Medicine 02/23/23 documented as of this encounter
--- OUTSIDE RECORDS SUMMARY | 2025-05-20 12:35 | XMS_ITS | Encounter Summary ---
Author Organization [employer] Address [address] [facility] 7t [place] [address] Care Team Providers Care Inner Tube Tuber Machine Operator Name Role Phone Wendy Pang MD Primary Care Pro vider Reason for Visit * Reason Onset Date Comments Durable Medical Equipment 06/23/2024 Prior Authorization 06/23/2024 Encounter Details Date Type Department Care Team (Late st Contact Info) Description 06/23/2024 Telephone [facility] MEDICINE [address] [place] [address] Wendy Pang MD [address] [place] [address] Durable Medical Equipment; Prior Authorization Social History [...] 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 Please contract pt at [phone]. (Belarusian Speaker) documented in this encounter Plan of Treatment Upcoming Encounters Date Type Department Care Team (Late st Contact Info) Description 05/28/2025 1:15 PM EDT Office Visit [facility] MEDICINE [address] [place] [phone] Wendy Pang MD [address] [place] [phone] documented as of this encounter Visit Diagnoses Not on filedocumented in this encounter Additional Health Concerns Assessment Noted Time PHQ-9 Depression Total Score: 024 1:15 PM EDT documented as of this encounter Care Teams Inner Tube Tuber Machine Operator Relationship Specialty Start Date End Date Wendy Pang MD [address] [place] [address] [phone] PCP - General Internal Medicine 02/23/23 documented as of this encounter
--- OUTSIDE RECORDS SUMMARY | 2025-05-20 12:35 | XMS_ITS | Clinical Summary ---
Author Organization [employer] Address [address] [place] [address] Care Team Providers Care Stencil Cutter Machine Name Role Phone Wendy Pang MD [...] 60 capsule 2 03/16/20 25 026 Active Tirzepatide-Alessnadro ght Management (Zepbound) 15 MG/0.5ML solution auto-injector [...] of migraines, was receiving a medication from [place], not sure of the name Will start [...] (Eric Ruff) and has a therapist in [place] (agency unknown). Pt will continue current treatment [...] (Eric Ruff) and has a therapist in [place] (agency unknown). Pt will continue current treatment including psychotherapy and medication management. clinician will provide additional support as needed during next medical appointment. Pt will practice grounding techniques for anxiety. MACARIO (obstructive sleep apnea) 11/13/2022 Cervical disc disease 11/13/2022 Constipation 11/13/2022 Encounters Date Type Department Care Team Description 05/19/2025 Results Follow-Up [facility] [address] [place] [phone] Wendy Pang MD Comprehensive Metabolic Panel, Lipid Panel, Standard, Creatine Kinase, Total 05/19/2025 Orders Only [facility] External Provider, [facility] 05/19/2025 Travel 05/18/2025 Telephone [facility] [address] [place] [address] Wendy Pang MD 05/11/2025 Refill [facility] [address] [place] [phone] Wendy Pang MD 04/12/2025 Results Follow-Up [address] [address] Wendy Martell MD XR Ankle 3+ Views Left 04/09/[address] [address] Wendy Pang MD 04/07/2025 11:00 AM EDT Office Visit [facility] [address] [place] [phone] Wendy Martell MD Sprain of anterior talofibular ligament of left ankle, initial encounter 04/07/2025 Travel 04/01/[address] [address] Guadalupe Grimes RN Results 03/30/[address] [phone] Wendy Pang MD Durable Medical Equipment 03/25/2025 Orders Only [address] [address] Wendy Pang MD 03/25/2025 Orders Only [facility] [address] [place] [address] Mychal Raymond MD 03/24/2025 Orders Only [facility] [address] [place] [phone] Wendy Pang MD Mixed hyperlipidemia (Primary Dx) 03/24/2025 Orders Only [facility] [address] [place] [address] Wendy Pang MD 03/22/[address] [address] Wendy Pang MD Durable Medical Equipment 03/19/2025 Results Follow-Up [address] [address] Wendy Pang MD Urinalysis Complete, Creatine Kinase, Total, Lactate Dehydrogenase (LD), Additional followed-up results: 3 03/19/[address] [address] Wendy Pang MD Prior Authorization 03/18/2025 11:30 AM EDT Office Visit [address] [address] Wendy Pang MD Pulsatile tinnitus of both ears (Primary Dx); Prediabetes; Primary hypertension; Mixed hyperlipidemia; Class 2 severe obesity due to excess calories with serious comorbidity and body mass index (BMI) of 39.0 to 39.9 in adult ([facility]); Transaminitis; Health care maintenance; Fibromyalgia; Bilateral carpal tunnel syndrome; Leg mass, left; Weakness generalized 03/18/2025 Travel 03/17/2025 Telephone [facility] [address] [place] [address] Wendy Pang MD chart prep 03/16/2025 Orders Only [facility] [address] [place] [address] Wendy Pang MD 03/16/2025 Refill [facility] [address] [place] [address] Wendy Pang MD Polyarthralgia 03/15/2025 Results Follow-Up [address] [address] Wendy Pang MD BI Mammogram Screening Tomosynthesis Bilateral 03/15/2025 Refill [facility] [address] [place] [phone] Wendy Pang MD Polyarthralgia 03/12/2025 Refill [facility] [address] [place] [address] Wendy Pang MD Polyarthralgia 03/12/2025 Refill [facility] [address] [place] [address] Anita Oliva MD PTSD (post-traumatic stress disorder) 03/04/2025 Orders Only [facility] [address] [place] [address] Wendy Pang MD 02/26/2025 Patient Outreach [facility] [address] [place] [phone] Wendy Pang MD Care Coordination (CH[facility] outreach for SDOH PT-1 and food needs-referral completed /) 02/26/2025 Telephone [facility] [address] [place] [address] Wendy Pang MD PT1 02/23/2025 Orders Only [facility] [address] [place] [address] Wendy Pang MD Chronic bilateral low back pain with bilateral sciatica (Primary Dx) 02/22/2025 Telephone [facility] [address] [place] [address] Wendy Pang MD Referral 02/18/2025 Refill [facility] [address] [place], [place] [phone] Lana Obrien, RITA Unspecified Eustachian tube disorder, left ear 02/17/2025 Orders Only [facility] [address] [place] [address] Wendy Pang MD 02/17/2025 Refill [facility] [address] [place], [place] [phone] Anita Oliva MD from Last 3 Months [...] Description 05/28/2025 1:15 PM EDT Office Visit [facility] [address] [place] [address] [phone] Wendy Pang MD [address] [place], [place] [phone] Health Maintenance Due Date Last Done Comments CT Colonography 1970 FIT DNA/Cologuard 1970 FIT 1970 FOBT 1970 Sigmoidoscopy 1970 Diabetes: Foot Exam 1980 Pneumococcal Vaccine: 50+ Years (1 of 2 - PCV) 1989 Colonoscopy 01/09/2024 Colorectal Cancer Screening 01/09/2024 Hepatitis B Vaccines (2 of 3 - 19+ 3-dose series) 03/22/2025 02/22/2025 COVID-19 Vaccine (1 - 2023- season) 2025 Influenza Vaccine (#1) 2025 06/16/2024 Depression Monitoring 05/22/2025 11/20/2024, 025 Diabetes: Urine Protein Screening 06/12/2025 06/12/2024 Diabetes: Hemoglobin A1C 09/18/2025 025, 06/12/2024, 12/30/2023 Alcohol/Substance Use Screening 11/20/2025 11/20/2024 Disability Screening 11/20/2025 11/20/2024 Cervical Cancer Screening 01/04/2026 HPV/Cotest 01/04/2026 01/09/2024, 12/18, 12/12/2022 Pap Smear 01/04/2026 01/04/2025, 12/18, 01/08/2024, Additional history exists SDOH Screening 01/13/2026 01/13/2025 Mammogram 03/04/2026 03/04/2025, 02/16, 01/21/2023, Additional history exists Tobacco Screening 04/07/2026 04/07/2025 Lipid Panel 05/19/2026 05/19/2025, 06/0 01/2025, 06/12/2024 Eye Exam 12/01/2026 12/01/2024, 11/17, 12/01/2024, [...] SPINE 4V Routine 05/19/2025 9:02 AM EDT CREATINE KINASE, TOTAL Routine 8:54 AM EDT Mixed hyperlipidemia LIPID PANEL, STANDARD Routine 05/19/2025 8:54 AM EDT Mixed hyperlipidemia COMPREHENSIVE METABOLIC PANEL Routine 05/19/2025 8:54 AM EDT Mixed hyperlipidemia AMB REFERRAL TO SLEEP MEDICINE Routine 05/12/2025 Loud snoring XR ANKLE 3+ VIEWS LEFT Routine 9:08 AM EDT Sprain of anterior talofibular [...] TOMOSYNTHESIS BILATERAL Routine 03/04/2025 9:26 AM EDT HM PAP/HPV Routine 01/04/2025 9:22 [...] Relevant to Health Maintenance Results * XR Knee 3 Views Left (05/20/2025 10:58 AM EDT) Anatomical Region Laterality Modality Lower Extremities, Knee Left Radiogra [facility] 05/20/2025 10:5 8 AM EDT Narrative 05/20/2025 11:10 AM EDT [facility] [address] [place] [address] [address] [place] [address] XRay Report Signed Patient: Jocelin Auguste#: [id number] : 1970 Acct:[id number] Age/Sex: 54 / F ADM Date: 05/20/25 Loc: [facility] Attending Dr: Cullen Hunter MD Ordering Physician: Cullen Hunter MD Date of Service: 05/20/25 Procedure(s): XR knee LT 3V Accession Number(s): [id number] cc: Wendy Pang MD; Cullen Hunter MD [...] 05/20/25 1107 DD/ 1058 TD/TT: 05/20/25 1100 Track Grinder Operator: Procedure Note Donotuseinterpreter, Image - 05/20/2025 [facility] [address] [place] [address] XRay Report Signed Patient: Jo Auguste R#: [id number] : 1970Acct:[id number] Age/Sex: 54 / FADM Date: 05/20/25 Loc: [facility]AN[facility] Attending Dr: Cullen Hunter MD Ordering Physician: Cullen Hunter MD Date of Service: 05/20/25 Procedure(s): XR knee LT 3V Accession Number(s): [id number] cc: Wendy Pang MD; Cullen Hunter MD [...] 05/20/25 1107 DD/ 1058 TD/TT: 05/20/25 1100 Track Grinder Operator: [facility] External Provider IMG XR PROCEDURES Edited Result - Final * XR CERVICAL SPINE 4V (05/19/2025 9:02 AM EDT) Anatomical Region Laterality Modality Abdomen Radiographic Jeanine ging 05/19/2025 9:02 AM EDT Narrative 05/19/2025 9:42 AM EDT [address] [address] XRay Report Signed Patient: Jocelin Auguste Carlos#: [id number] : 1970 Acct:[id number] Age/Sex: 54 / F ADM Date: 05/19/25 Loc: HO.HHCX Attending Dr: Cullen Hunter MD Ordering Physician: Cullen Hunter MD Date of Service: 05/19/25 Procedure(s): XR cervical spine 4V Accession Number(s): [id number] cc: Wendy Pang MD; Cullen Hunter MD [...] Brice Pate MD 05/19/2025 09:39 AM EDT Dictated By: Brice Pate MD Signed By: <Electronically signed by Brice Pate MD in OV> 05/19/25 0939 DD/ 1 TD/TT: 05/19/25 0903 Track Grinder Operator: Procedure Note Donotuseinterpreter, Image - 05/19/[address] [address] XRay Report Signed Patient: Jo Auguste R#: [id number] : 1970Acct:[id number] Age/Sex: 54 / FADM Date: 05/19/25 Loc: HO.HHCX Attending Dr: Cullen Hunter MD Ordering Physician: Cullen Hunter MD Date of Service: 05/19/25 Procedure(s): XR cervical spine 4V Accession Number(s): [id number] cc: Wendy Pang MD; Cullen Hunter MD [...] in OV> 05/19/25938 DD/ 1 TD/TT: 05/19/25902 Track Grinder Operator: [facility] External Provider IMG XR PROCEDURES Final Result * Creatine Kinase, Total (05/19/2025 8:54 AM EDT) Only the most recent of2 resultswithin the time period is included. Creatine Kinase Total 110 26 - 140 U/L [facility] Blood Venous blood specimen / Unknown 05/19/2025 8:54 AM EDT 05/19/2025 11:04 AM EDT Wendy Vance MD LAB BLOOD ORDERAB LES Final Result [facility] [address] [place] [phone] * (ABNORMAL) Lipid Panel, Standard (05/19/2025 8:54 AM EDT) Triglycerides 127 <150 mg/dL [facility] Comment:Desirable Triglyceri de: less than 150 mg/dLBorderline High Triglyceride 150-199 mg/dLHigh Triglyceride: 200-499 mg/dLVery High Triglyceride: greater than or equal to 5OO mg/dL Cholesterol 183 <200 mg/dL [facility] Comment:Desirable Cholestero l: less than 200 mg/dLBorderline High Cholesterol: 200-239 mg/dLHigh Cholesterol: greater than 239 mg/dL LDL Cholesterol Calculated 118(H) <100 mg/dL [facility] Comment:Desirable LDL: less than 100 mg/dLNear Optimal/Above Optimal LDL: 110- 129 mg/dLBorderline High LDL: 130-159 mg/dLHigh LDL: 160-189 mg/dLVery High LDL: greater than or equal to 190 mg/dL HDL Cholesterol 40(L) >40 mg/dL [facility] Comment:Desirable HDL: great er than 40 mg/dL Note: This HDL assay may give artificially low results in patients with liver disease. Blood Venous blood specimen / Unknown 05/19/2025 8:54 AM EDT 05/19/2025 11:04 AM EDT us Wendy Vance MD LAB BLOOD ORDERAB LES Final Result [facility] [address] [place] [phone] * (ABNORMAL) Comprehensive Metabolic Panel (05/19/2025 8:54 AM EDT) Sodium 144 135 - 145 mmol/L [facility] Potassium 3.8 3.3 - 5.1 mmol/L [facility] Chloride 109(H) 96 - 108 mmol/L [facility] Carbon Dioxide 27 22 - 29 mmol/L [facility] Anion Gap 12 12 - 20 [facility] Urea Nitrogen (BUN) 21(H) 9 - 16 mg/dL [facility] Creatinine, Serum 0.66 0.5 - 1.4 mg/dL [facility] Estimated Glomerular Filt Rate >60 [facility] Comment:Chronic Kidney Disea se: Estimated GFR < 60 mL/min/[id number] Kidney Disease: Estimated GFR < 15 mL/min/1.73m2 Glucose 85 60 - 115 mg/dL [facility] Calcium 9.4 8.4 - 10.2 mg/dL [facility] Bilirubin, Total 0.2 0.0 - 1.0 mg/dL [facility] Aspartate Amino Transferase 33(H) 5 - 31 U/L [facility] Alanine Aminotransferase 34(H) 0 - 31 U/L [facility] Total Protein 7.9 6.5 - 8.0 g/dL [facility] Albumin Level 4.5 3.5 - 5.0 g/dL [facility] Alkaline Phosphatase 69 39 - 117 U/L [facility] Blood Venous blood specimen / Unknown 05/19/2025 8:54 AM EDT 05/19/2025 11:04 AM EDT us Wendy Vance MD LAB BLOOD ORDERAB LES Final Result [facility] [address] [place] [phone] * Referral to Sleep Medicine (05/12/2025) us Wendy Vance MD OUTPATIENT REFERR AL ORDERABLES Final Result * XR Ankle 3+ Views Left (04/08/2025 9:08 AM EDT) Anatomical Region Laterality Modality Lower Extremities, Ankle Left Radiogr [facility] 04/08/2025 9:08 AM EDT Narrative 04/08/2025 9:26 AM EDT [facility] [address] [place] [address] XRay Report Signed Patient: Jocelin Auguste Carlos#: [id number] : 1970 Acct:[id number] Age/Sex: 54 / F ADM Date: 04/08/25 [facility]: Wendy Claudio MD Ordering Physician: Wendy Martell MD Date of Service: 04/08/25 Procedure(s): XR ankle LT min 3V Accession Number(s): [id number] cc: Wendy Martell MD; Wendy Pang MD [...] Jero Nickerson MD 04/08/2025 09:23 AM EDT Dictated By: Jero Avilez MD Signed By: <Electronically signed by Jero Grimes MD in OV> 04/08/2523 DD/ 0908 TD/TT: 04/08/25 0914 Track Grinder Operator: Procedure Note Donotuseinterpreter, Image - 04/08/[address] [address] XRay Report Signed Patient: Jo Auguste R#: [id number] : 1970Acct:[id number] Age/Sex: 54 / FADM Date: 04/08/25 Loc: HO.HHCX Attending Dr: Wendy Claudio MD Ordering Physician: Wendy Martell MD Date of Service: 04/08/25 Procedure(s): XR ankle LT min 3V Accession Number(s): [id number] cc: Wendy Martell MD; Wendy Pang MD [...] Jero Nickerson MD 04/08/2025 09:23 AM EDT Dictated By: Jero Avilez MD Signed By: <Electronically signed by Jero Grimes MDin OV> 04/08/25922 DD/ 7 TD/TT: 04/08/25 0914 Track Grinder Operator: us Wendy Claudio MD IMG XR PROCEDURES Fin al Result * Nerve conduction test (04/01/2025) us Wendy Vance MD NEUROLOGY ORDERAB LES Final Result * Myositis Specific 11 Antibody Panel (03/19/2025 11:14 AM EDT) Liv-1 Ab <11 <11 [facility] Pl-7 Ab <11 <11 [facility] Pl-12 Ab <11 <11 [facility] Ej Ab <11 <11 [facility] Oj Ab <11 <11 [facility] SRP Ab <11 <11 [facility] Mi-2 alpha Ab <11 <11 SI [facility] Mi-2 beta Ab <11 <11 SI [facility] MDA5 Ab <11 <11 [facility] TIF1 gamma Ab <11 <11 SI [facility] NXP-2 (MJ) Ab <11 <11 SI [facility] Comment: Myositis-specific autoantibodies (MSAs) are [...] association with a rash. Additionally, MSAsto MDA5 ([id number]) have been identified in patients withclinically amyopathic [...] its analytical performancecharacteristics have been determined by [employer]. It has not been cleared or approved bythe FDA. This assay has been validated pursuant to theIA regulations and is used for clinical purposes.THIS TEST WAS PERFORMED AT:[employer]/Stand Offer [id number] [place] [id number] JUNE MD,PHD,DAVID Blood Venous blood specimen / Unknown 03/19/2025 11:14 AM EDT 03/19/2025 12:09 PM EDT Wendy Vance MD LAB BLOOD ORDERAB LES Final Result Performing Organization Address [facility]/ZIP Co de Phone Number [facility] [address] [place] [phone] * Aldolase (03/19/2025 11:14 AM EDT) Aldolase 6.3 <=8.1 U/L [facility] Comment:THIS TEST WAS PERFOR MED AT:[employer]/Stand Offer [id number] [place] [id number] JERNIGAN MD,PHD Blood Venous blood specimen / Unknown 03/19/2025 11:14 AM EDT 03/19/2025 12:17 PM EDT us Wendy Vance MD LAB BLOOD ORDERAB LES Final Result Performing Organization Address [facility] Co de Phone Number [facility] [address] [place] [phone] * (ABNORMAL) Urinalysis Complete (03/19/2025 11:14 AM EDT) Color Urine Dark Yellow [facility] Appearance Urine Clear [facility] PH 5.5 5.0 - 9.0 [facility] Glucose Urine UA Negative Negative mg/dL [facility] Urine Blood Negative Negative [facility] Specific Gordon - Urine >=1.030(H) 1.005 - 1.025 [facility] Urine Protein Trace Neg-Trace mg/dL [facility] Urine Ketones Trace Negative mg/dL [facility] Nitrite Urine Negative Negative [facility] Leukocyte Esterase Urine Negative Negative [facility] RBC Urine 0-2 0 - 2 /HPF [facility] Urine WBC 0-5 0 - 5 /HPF [facility] Urine Squamous Epithelial Cell 0-2 0 - 2 /HPF [facility] Urine Bacteria None Seen None Seen [facility] Hyaline Casts, Urine 0-2 0 - 2 /LPF [facility] Urine (Urine, Random) 03/19/2025 11:14 AM EDT 03/19/2025 11:56 AM EDT us Wendy Vance MD LAB URINE ORDERAB LES Final Result Performing Organization Address City/[facility]/ZIP Co de Phone Number [facility] [address] [place] [phone] * Protein, Total and Protein??Electrophoresis (03/19/2025 11:14 AM EDT) Prot Elec - Total Protein 7.3 6.1 - 8.1 g/dL [facility] Prot Elec - Albumin 4.2 3.8 - 4.8 g/dL [facility] Prot Elec - Alpha1 0.3 0.2 - 0.3 g/dL [facility] Prot Elec - Alpha2 0.8 0.5 - 0.9 g/dL [facility] Prot Elec - Beta 1 0.4 0.4 - 0.6 g/dL [facility] Prot Elec - Beta 2 0.5 0.2 - 0.5 g/dL [facility] Prot Elec - Gamma 1.1 0.8 - 1.7 g/dL [facility] PES - Abn Protein Band 1 [facility] PES-Abn Protein Band 2 [facility] PES-Abn Protein Band 3 [facility] Prot Elec - Interpretation SEE NOTE [facility] Comment:Normal Serum Protein Electrophoresis Pattern.No abnormal protein bands (M-protein) detected.THIS TEST WAS PERFORMED AT:[employer] [facility] [place] [id number] DAN MD Blood Venous blood specimen / Unknown 03/19/2025 11:14 AM EDT 03/19/2025 12:09 PM EDT us Wendy Vance MD LAB BLOOD ORDERAB LES Final Result [facility] [address] [place] [phone] * Lactate Dehydrogenase (LD) (03/19/2025 11:14 AM EDT) Lactate Dehydrogenase 214 122 - 220 U/L [facility] Blood Venous blood specimen / Unknown 03/19/2025 11:14 AM EDT 03/19/2025 12:17 PM EDT Wendy Vance MD LAB BLOOD ORDERAB LES Final Result [facility] [address] [place] [phone] * POCT Glucose (03/18/2025 11:55 AM [...] AM EDT Narrative 03/15/2025 10:34 AM EDT [address] [place] [address] Mammography Report Signed Patient: Jocelin Auguste R#: [id number] : 1970 Acct:[id number] Age/Sex: 54 / F ADM Date: 03/04/25 Loc: HO.MAMMO Attending Dr: Wendy Vance MD Ordering Physician: Wendy Pang MD Re sults: 1Negative Date of Service: 03/04/25 Follow Up: 1 Year From Orig ina Mammogram Procedure(s): MM tomosynthesis screening BI Accession Number(s): [id number] cc: Wendy Pang MD EXAMINATION: MM SCREENING [...] Colin DO in OV> 03/15/25 1031 DD/ TD/TT: 03/04/25 0949 Track Grinder Operator: Procedure Note Donotuseinterpreter, Image - 03/15/[address] [place] [address] Mammography Report Signed Patient: Jo Auguste R#: [id number] : 1970Acct:[id number] Age/Sex: 54 / FADM Date: 03/04/25 Loc: HO.MAMMO Attending Dr: Wendy Vance MD Ordering Physician: Wendy Pang sults: 1Negative Date of Service: 03/04/25Follow Up: 1 Year From Orig inal Mammogram Procedure(s): MM tomosynthesis screening BI Accession Number(s): [id number] cc: Wendy Pang MD EXAMINATION: MM SCREENING [...] Colin DO in OV> 03/15/25 1031 DD/ 5 TD/TT: 03/04/25 0949 Track Grinder Operator: us Wendy Vance MD IMG BI PROCEDURES Final Result * HM PAP/HPV (01/04/2025 9:22 AM EDT) Only the most recent of2 resultswithin the time period is included. us Historical Provider HEALTH MAINTENANCE Final Result * Albumin, Random Urine W/Creatinine (06/12/2024 11:40 AM EDT) Creatinine, Urine 195.62 mg/dL [facility] Microalbumin Urine 41.0 mg/L [facility] Microalbum Creatinine Ratio Ur 20.9 <30 ug/mg cr [facility] Comment:Albumin/Creatinine R atio Reference Ranges: Normal: < 30 ug/mg creatinine Microalbuminuria: 30 - 300 ug/mg creatinineClinical Albuminuria: > 300 ug/mg creatinine Urine (Urine, Random) 06/12/2024 11:40 AM EDT 06/12/2024 1:08 PM EDT us Wendy Vance MD LAB URINE ORDERAB LES Final Result Performing Organization Address [facility] Co de Phone Number [facility] [address] [place] [phone] * Hepatitis C Antibody with Reflex to HCV, RNA, Quantitative, Real-Time PCR (06/12/2024 11:39 AM EDT) Pathologist [facility] Hepatitis C Antibody Nonreactive Nonreactive [facility] Comment:Antibodies to HCV no t detected; does not exclude early acuteHCV infection. Blood Venous blood specimen / Unknown 06/12/2024 11:39 AM EDT 06/12/2024 1:19 PM EDT us Wendy Vance MD LAB BLOOD ORDERAB LES Final Result Performing Organization Address [facility] Co de Phone Number [facility] [address] [place] [phone] * HIV-1/2 Antigen and Antibodies, Fourth Generation, with Reflexes (06/12/2024 11:39 AM EDT) HIV AB/AG Nonreactive Nonreactive [facility] Comment:HIV-1 p24 Ag and/or HIV-1/HIV-2 Ab not detected.A test result that is nonreactive does not exclude thepossibility of exposure to or infection with HIV-1 and/orHIV-2. Nonreactive results in this assay for individualswith prior exposure to HIV-1 and/or HIV-2 may be due toantigen and antibody levels that are below the limit ofdetection of this assay.The Scripted HIV Ag/Ab Combo assay result andsupplemental assay results should be interpreted inconjunction with the patient's clinical presentation,history and other laboratory results. If the results areinconsistent with clinical evidence, additional testing issuggested to confirm the result. Blood Venous blood specimen / Unknown 06/12/2024 11:39 AM EDT 06/12/2024 1:19 PM EDT us Wendy Vance MD LAB BLOOD ORDERAB LES Final Result Performing Organization Address City/State/[facility] Co de Phone Number [facility] [address] [place] [phone] * Colposcopy (02/11/2024 9:20 AM EDT) us Historical Provider IN CLINIC/BEDSIDE ORDERAB LES Edited Result - Final from Last 3 Months or Most Recently Relevant to Health Maintenance Insurance [address] [address] C3 Care Teams Stencil Cutter Machine Relationship Specialty Start Date End Date Wendy Pagn MD [address] [place], [place] [phone] PCP - General Internal Medicine 02/23/23
--- OUTSIDE RECORDS SUMMARY | 2025-05-20 12:35 | XMS_ITS | Encounter Summary ---
Author Organization [employer] Address [address] [facility] 7[place] [address] Care Team Providers Care Home Appliance Installer Name Role Phone Wendy Pang MD Primary Care Pro vider Reason for Visit * Reason Onset Date Comments pt1 12/14/2024 Encounter Details Date Type Department Care Team (Late st Contact Info) Description 12/14/2024 Telephone [facility] 230 [place] [address] Wendy Pang MD 230 [place] [address] pt1 Social History Tobacco Use Types Packs/Day [...] Y/N: Yes Provider name or facility name: [employer] [address] [address] Escort needed: Y/N: Yes Do you have a wheelchair: Y/N: No If yes- Manual or electric: Visits: (5) ( x monthly,) 2- Patient calling requesting PT1 Home Address verified: Y/N: Yes Provider name or facility name: [address] [place] [address] Escort needed: Y/N: Yes Do you have a wheelchair: Y/N: No If yes- Manual or electric: Visits: (5) ( x monthly,) documented in this encounter Plan of Treatment Upcoming Encounters Date Type Department Care Team (Late st Contact Info) Description 05/28/2025 1:15 PM EDT Office Visit [facility] 230 [place], [place] [phone] Wendy Pang MD 230 [place], [place] [phone] documented as of this encounter Visit Diagnoses Not on filedocumented in this encounter Additional Health Concerns Assessment Noted Time PHQ-9 Depression Total Score: 17 11/20/ 025 9:06 AM EDT documented as of this encounter Care Teams Home Appliance Installer Relationship Specialty Start Date End Date Wendy Pang MD [address] [place] [phone] PCP - General Internal Medicine 02/23/23 documented as of this encounter
--- OUTSIDE RECORDS SUMMARY | 2025-05-20 12:35 | XMS_ITS | Encounter Summary ---
Author Organization [employer] Address 75 [facility] 7t [place] [address] Care Team Providers Care Paper And Prints Restorer Name Role Phone Wendy Pang MD Primary Care Pro vider Encounter Details Date Type Department Care Team (Late st Contact Info) Description 03/25/2025 Orders Only [facility] 230 [place], [place] [phone] Wendy Pang MD 230 [place] [address] Social History Tobacco Use Types Packs/Day Years [...] t he electric, gas, oil or water [employer] threatened to shut off services in your [...] Description 05/28/2025 1:15 PM EDT Office Visit [facility] [address] [place] [address] Wendy Pang MD [address] [place] [address] documented as of this encounter Visit Diagnoses Not on filedocumented in this encounter Additional Health Concerns Assessment Noted Time PHQ-9 Depression Total Score: 17 025 9:06 AM EDT documented as of this encounter Care Teams Paper And Prints Restorer Relationship Specialty Start Date End Date Wendy Pang MD [address] [place] [phone] PCP - General Internal Medicine 02/23/23 documented as of this encounter
--- OUTSIDE RECORDS SUMMARY | 2025-05-20 12:35 | XMS_ITS | Encounter Summary ---
Author Organization [employer] Address [address] [facility] [address] 7[address] [place] [address] Care Team Providers Care Campaign Analyst Name Role Phone Wendy Pang MD Primary Care Pro vider Reason for Visit * Reason Comments Med Refill Encounter Details Date Type Department Care Team (Late st Contact Info) Description 10/26/2024 Refill [facility] 230 [place] [address] Patria Pappas ANP 230 [place] [address] Social History Tobacco Use Types Packs/Day Years [...] Description 05/28/2025 1:15 PM EDT Office Visit [facility] [address] [place] [address] Wendy Pang MD [address] [place] [phone] documented as of this encounter Visit Diagnoses Not on filedocumented in this encounter Additional Health Concerns Assessment Noted Time PHQ-9 Depression Total Score: 024 1:15 PM EDT documented as of this encounter Care Teams Campaign Analyst Relationship Specialty Start Date End Date Wendy Pang MD [address] [place] [phone] PCP - General Internal Medicine 02/23/23 documented as of this encounter
--- OUTSIDE RECORDS SUMMARY | 2025-05-20 12:35 | XMS_ITS | Encounter Summary ---
Author Organization [employer] Address 75 [facility] 7[place] [address] Care Team Providers Care Amr Physician Name Role Phone Wendy Pang MD Primary Care Pro vider Reason for Visit * Reason Onset Date Comments Accamodation Letter 06/25/2024 Encounter Details Date Type Department Care Team ([facility] st Contact Info) Description 06/25/2024 Telephone [facility] 230 [place] [address] Wendy Pang MD 230 [place] [address] Accamodation Letter Social History Tobacco Use Types [...] any questions you can contact pt at [phone]. (Kazakh Speaker) documented in this encounter Plan of Treatment Upcoming Encounters Date Type Department Care Team (Late st Contact Info) Description 05/28/2025 1:15 PM EDT Office Visit [facility] 230 [place], [place] [phone] Wendy Pang MD [address] [place] [address] documented as of this encounter Visit Diagnoses Not on filedocumented in this encounter Additional Health Concerns Assessment Noted Time PHQ-9 Depression Total Score: 10 024 1:15 PM EDT documented as of this encounter Care Teams Amr Physician Relationship Specialty Start Date End Date Wendy Pang MD [address] [place] [address] [phone] PCP - General Internal Medicine 02/23/23 documented as of this encounter
--- OUTSIDE RECORDS SUMMARY | 2025-05-20 12:35 | XMS_ITS | Encounter Summary ---
Author Organization [employer] Address 75 [facility] 7[place] [address] Care Team Providers Care Manager Terminal Name Role Phone Wendy Pang MD Primary Care Pro vider Reason for Visit * Reason Onset Date Comments Med Refill 07/13/2024 Encounter Details Date Type Department Care Team (Late st Contact Info) Description 07/13/2024 Telephone [facility] 230 [place] [address] Wendy Pang MD 230 [place] [address] Med Refill Social History Tobacco Use Types [...] 11:39 AM EST Medication was sent to [facility] on 06/16/24 0.25 mg dose and 0.5 mg. * Telephone Encounter - Chad Kim - 07/13/2024 11:18 AM EST TC from pt requesting medication refill. Medications needing refill: Semaglutide-Weight Management (Wegovy) 0.25 MG/0.5ML solution auto-injector To be sent to: [facility] - [place], [place] - [address] [place] [address] documented in this encounter Plan of Treatment Upcoming Encounters Date Type Department Care Team ([facility] st Contact Info) Description 05/28/2025 1:15 PM EDT Office Visit [facility] [address] [place] [address] Wendy Pang MD 230 [place] [address] documented as of this encounter Visit Diagnoses Not on filedocumented in this encounter Additional Health Concerns Assessment Noted Time PHQ-9 Depression Total Score: 10 024 1:15 PM EDT documented as of this encounter Care Teams Manager Terminal Relationship Specialty Start Date End Date Wendy Pang MD [address] [place] [phone] PCP - General Internal Medicine 02/23/23 documented as of this encounter
--- OUTSIDE RECORDS SUMMARY | 2025-05-20 12:35 | XMS_ITS | Encounter Summary ---
Author Organization [employer] Address 75 [facility] 7t [place] [address] Care Team Providers Care Computer Equipment Repairer Name Role Phone Wendy Pang MD Primary Care Pro vider Encounter Details Date Type Department Care Team (Late st Contact Info) Description 05/18/2025 Telephone [facility] 230 [place], [place] [phone] Wendy Pang MD 230 [place] [address] Social History Tobacco Use Types Packs/Day Years [...] the past 12 months, has t he [employer], gas, oil or water [employer] threatened to shut off services in your [...] 05/28/2025 1:15 PM EDT Office Visit [facility] [address] [place] [address] Wendy Pang MD [address] [place] [address] documented as of this encounter Visit Diagnoses Not on filedocumented in this encounter Additional Health Concerns Assessment Noted Time PHQ-9 Depression Total Score: 17 025 9:06 AM EDT documented as of this encounter Care Teams Computer Equipment Repairer Relationship Specialty Start Date End Date Wendy Pang MD [address] [place] [phone] PCP - General Internal Medicine 02/23/23 documented as of this encounter
--- OUTSIDE RECORDS SUMMARY | 2025-05-20 12:35 | XMS_ITS | Encounter Summary ---
Author Organization [employer] Address [address] [place] [address] 7 [place] [address] Care Team Providers Care Abalone Sheller Name Role Phone Wendy Martell MD Primary Care Provide r Wendy Pang MD Primary Care Pro vider Encounter Details Date Type Department Care Team (Late Contact Info) Description 02/18/2023 Orders Only [facility] [address] [place] [address] Jordana Jose CNM 230 [place] [address] Social History Tobacco Use Types Packs/Day Years [...] Description 05/28/2025 1:15 PM EDT Office Visit [facility] [address] [place] [address] Wendy Pang MD 230 [place], [place] [phone] documented as of this encounter Procedures Procedure Name Priority Date/Time Associated Diagnosis Comments COLPOSCOPY Routine 01/31/2023 12:00 AM EDT documented in this encounter Results * Colposcopy (01/31/2023 12:00 AM EDT) us Ronni Bautista MD IN CLINIC/BEDSIDE ORDERABLES Fin al Result [facility] [address] [place] [address] [phone] documented in this encounter Visit Diagnoses Not on filedocumented in this encounter Care Teams Abalone Sheller Relationship Specialty Start Date End Date Wendy Martell MD 230 [place] [address] PCP - General Internal Medicine 11/22/22 02/22/23 Wendy Pang MD 230 [place] [address] PCP - General Internal Medicine 02/23/23 documented as of this encounter
--- OUTSIDE RECORDS SUMMARY | 2025-05-20 12:35 | XMS_ITS | Encounter Summary ---
Author Organization [employer] Address [address] [facility] [address] 7t [place] [address] Care Team Providers Care Supply Chain Tech Name Role Phone Wendy Pang MD Primary Care Pro vider Encounter Details Date Type Department Care Team (Late st Contact Info) Description 09/29/2024 Orders Only [facility] 230 [place] [address] Provider, MD Mychal Social History Tobacco Use [...] with others, in a hotel, in a longterm, living outside on the street, on a [...] the past 12 months, has t he [employer], gas, oil or water [employer] threatened to shut off services in your [...] Description 05/28/2025 1:15 PM EDT Office Visit [facility] [address] [place] [address] [phone] Wendy Pang MD [address] [place] [address] [phone] documented as of this encounter Procedures Procedure [...] as of this encounter Care Teams Supply Chain Tech Relationship Specialty Start Date End Date Wendy Pang MD [address] [place] [address] PCP - General Internal Medicine 02/23/23 documented as of this encounter
--- OUTSIDE RECORDS SUMMARY | 2025-05-20 12:35 | XMS_ITS | Encounter Summary ---
Author Organization [employer] Address 75 [facility] 7[place] [address] Care Team Providers Care Granite Setter Name Role Phone Wendy Pang MD Primary Care Pro vider Reason for Visit * Reason Comments Med Refill Encounter Details Date Type Department Care Team (Late st Contact Info) Description 03/12/2025 Refill [facility] 230 [place] [address] Wendy Pang MD 230 [place] [address] Polyarthralgia Social History Tobacco Use Types Packs/Day [...] 05/28/2025 1:15 PM EDT Office Visit [facility] [address] [place] [address] Wendy Pang MD 230 [place] [address] documented as of this encounter Visit Diagnoses Diagnosis Polyarthralgia Pain in joint, multiple sites documented in this encounter Additional Health Concerns Assessment Noted Time PHQ-9 Depression Total Score: 17 025 9:06 AM EDT documented as of this encounter Care Teams Granite Setter Relationship Specialty Start Date End Date Wendy Pang MD 230 [place] [address] PCP - General Internal Medicine 02/23/23 documented as of this encounter
--- OUTSIDE RECORDS SUMMARY | 2025-05-20 12:35 | XMS_ITS | Encounter Summary ---
Author Organization [employer] Address 75 [facility] 7t [place] [address] Care Team Providers Care Master Fisher Name Role Phone Wendy Pang MD Primary Care Pro vider Reason for Visit * Reason Onset Date Comments Nurse Triage 03/11/2023 Encounter Details Date Type Department Care Team (Late st Contact Info) Description 03/11/2023 Telephone [facility] 230 [place] [address] Wendy Pang MD 230 [place] [address] Nurse Triage Social History Tobacco Use Types [...] 03/14/2023 11:06 AM EDT Triage call with [employer] Steward/Stewardess Second ID [id number]. Pt was triaged 03/11/23 and advised to come to [facility] to be seen but, didn't go. Pt reports doesn't want to go to [facility] because, I have too many issues Carol only want my doctor . Pt is offered 300pm apt with Dr. Villegas today but, reports no transportation. Advised Pt has 04/18/23 apt for transfer to Dr. Jama Vance and Pt reports my friend said thereare many apts open with Dr. Yun earlier than that and I want to go 03/25. . General Teller looked at schedule for that day and no available apts for transfer Pt seen. Phone connection very poor. Call was dropped 3 times during this conversation. Advised Pt to come to [facility] today or tomorrow. Hours given opentill 4pm [...] still has severe pain. Please contact at [phone] * Telephone Encounter - Beryl Schuster RN - 03/11/2023 1:25 PM EDT Triage call with [employer] Steward/Stewardess Second ID [id number] Pt reports shoulder, neck, middle to low back pain. Pt reports left foot almost gave out and Pt almost fell so Pt has someone walk with her all the time. Pt has suffered loss of mother and other family problems causing the increase of the pain. Pt is not finding effective pain relief and wants to see provider. Advised to come to [facility] today to be seen and Pt agreed. [...] accepted this outcome Please contact pt at [phone] Danish Speaker documented in this encounter Plan of Treatment Upcoming Encounters Date Type Department Care Team (Late st Contact Info) Description 05/28/2025 1:15 PM EDT Office Visit [facility] [address] [place] [address] [phone] Wendy Pang MD [address] [place] [address] [phone] documented as of this encounter Visit Diagnoses Not on filedocumented in this encounter Care Teams Master Fisher Relationship Specialty Start Date End Date Wendy Pang MD [address] [place] [address] [phone] PCP - General Internal Medicine 02/23/23 documented as of this encounter
--- OUTSIDE RECORDS SUMMARY | 2025-05-20 12:35 | XMS_ITS | Encounter Summary ---
Author Organization [email or web address] Address [address] [facility] [address] 7[address] [place] [address] Care Team Providers Care Beater Out Name Role Phone Wendy Pang MD Primary Care Pro vider Encounter Details Date Type Department Care Team (Late st Contact Info) Description 03/25/2025 Orders Only [facility] [address] [place], [place] [phone] Provider, MD Mychal Social History Tobacco Use [...] Description 05/28/2025 1:15 PM EDT Office Visit [facility]INE [address] [place] [address] [phone] Wendy Pang MD [address] [place] [address] [phone] documented as of this encounter Procedures Procedure [...] documented as of this encounter Care Teams Beater Out Relationship Specialty Start Date End Date Wendy Pang MD [address] [place] [address] [phone] PCP - General Internal Medicine 02/23/23 documented as of this encounter
--- OUTSIDE RECORDS SUMMARY | 2025-05-20 12:35 | XMS_ITS | Encounter Summary ---
Author Organization [employer] Address [address] [facility] [address] 7t [place] [address] Care Team Providers Care Mapping Pilot Name Role Phone Wendy Pang MD Primary Care Pro vider Reason for Visit * Reason Comments Med Refill Encounter Details Date Type Department Care Team (Late st Contact Info) Description 02/18/2025 Refill [facility] 230 [place], [place] [phone] Lana Obrien NP 230 [place] [address] Unspecified Eustachian tube disorder, left ear Social [...] Description 05/28/2025 1:15 PM EDT Office Visit [facility] [address] [place] [address] Wendy Pang MD [address] [place] [phone] documented as of this encounter Visit Diagnoses Diagnosis Unspecified Eustachian tube disorder, left ear documented in this encounter Additional Health Concerns Assessment Noted Time PHQ-9 Depression Total Score: 17 025 9:06 AM EDT documented as of this encounter Care Teams Mapping Pilot Relationship Specialty Start Date End Date Wendy Pang MD [address] [place] [phone] PCP - General Internal Medicine 02/23/23 documented as of this encounter
== END 2025-05-20 10:46 | disposition home or self-care (01) ==
LOC: HO.HOSX 10:45
PROVIDERS: PCP Student in an Organized Health Care Education/Training Program; Visit Provider Orthopaedic Surgery
DX: M17.12 Unilateral primary osteoarthritis, left knee (principal); M79.672 Pain in left foot
CPT/HCPCS: 73562; 99202

== ENCOUNTER → 2025-05-20 10:49 | Outpatient (BNV) | payer MEDICAID, SELFPAY | PROVIDERS: PCP Student in an Organized Health Care Education/Training Program; Visit Provider Radiology Diagnostic Radiology | DX: M17.12 Unilateral primary osteoarthritis, left knee (principal) | CPT/HCPCS: 73562 ==

== ENCOUNTER 2025-05-20 11:17 | Outpatient (AMB) | payer MEDICAID, SELFPAY ==
--- NOTE | 2025-05-20 11:23 | A.OFFVIS_ITS ---
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 X-rays done at [facility] today. Denies any recent injury. She reports having continued chronic pain for roughly 3 years ago. She utilizes a knee brace for stability. She has difficulty getting up from laying down or sitting due to pain in the bilateral knees that radiates into the feet. Yesterday she felt instability going up the stairs, at the top she claims she almost felt back however someone caught her fall. She reports at night she feels like she loses some color in her feet and they appear pale. The patient describes her left knee pain as sharp in nature. She has failed the last 3 months of conservative treatment which has included Tylenol, anti-inflammatory medicines, topical creams, a home exercise program and physical therapy exercises. At this point her left knee pain is interfering with her activities of daily living and her ability to sleep well through the night. The patient states that she has had cortisone injections in the past which gave her no relief. She wishes to hold off on surgery if at all possible. Assistant To The Vice President Required: Yes Assistant To The Vice President Language: Radiology Nurse Services: Assistant To The Vice President Present (ipad) Assistant To The Vice President Name: [id number] Allergies No Known Allergies Allergy (Verified 05/20/25 11:28) Medication List - Last Reconciled 05/20/25 by Cullen Hunter MD bismuth subsalicylate (Bismuth) 2 tabs PO QID 14 days cetirizine 10 mg PO QPM duloxetine (Cymbalta) 30 mg PO DAILY fluticasone propionate 50 mcg/actuation 2 sprays intranasal DAILY levothyroxine (Tirosint) 88 mcg PO QAM lidocaine 5% 1 patch topical DAILY losartan 100 mg PO DAILY omeprazole 40 mg PO BID 14 days peg 3350-electrolytes 236-22.74-6.74 -5.86 gram (Golytely) 240 mL PO Q10M 1 day pregabalin 150 mg PO tirzepatide (weight loss) (Zepbound) mg subcut QWEEK trazodone 50 mg PO BEDTIME PRN PFSH Medical History Pelvic pain Cervical high risk HPV (human papillomavirus) test positive Vaginal discharge Postop check Fibromyalgia Osteoarthritis Polyarthralgia Post traumatic stress disorder Constipation Cervical disc disease Generalized anxiety disorder Mixed hyperlipidemia Type 2 diabetes mellitus HTN (hypertension) Tachycardia Sleep apnea LGSIL on Pap smear of cervix Surgical History Hx of tubal ligation Hx of section Social History Alcohol intake: never Patient Tobacco Use Status: Never used Tobacco Female Reproductive History Menstrual Age of Menarche: 12 Physical Exam Const Other: Well-nourished well-developed very friendly female awake alert and oriented x3 in no acute distress Extrem Other: Left knee examination shows a minimal effusion, palpable crepitus with range of motion, pain with range of motion, no instability Results Reviewed Results Reviewed: X-rays of the patient's left knee show moderate diffuse joint space narrowing, no acute bony abnormalities Assessment & Plan Assessment & Plan (1) Osteoarthritis of left knee: Code(s): M17.12 - Unilateral primary osteoarthritis, left knee Category: Medical Plan Jocelin presents with left knee pain due to osteoarthritis. I had a lengthy discussion with the patient regarding the treatment options. She wishes to hold off on surgery if at all possible. I agree with this plan. I will see if her insurance company will cover a viscosupplementation injection, such as Durolane, for her left knee. I will see her back once the injection is available. Feel free to call me at any time should questions regarding her orthopedic management arise. I spent 20 minutes in reviewing the patient's records and imaging studies, seeing the patient and documenting in the medical record. Orders: Orders XR knee LT 3V Today M25.562 - Pain in left knee Referrals Podiatry Referral M79.671 - Pain in right foot, M79.672 - Pain in left foot Coding Level of Care Code New Pt Level 3 (57445) Complex EM visit Add On G2211 Diagnoses Osteoarthritis of left knee M17.12
== END 2025-05-20 11:46 | disposition home or self-care (01) ==
LOC: HO.HOS 11:17
PROVIDERS: PCP Student in an Organized Health Care Education/Training Program; Visit Provider Orthopaedic Surgery
DX: M17.12 Unilateral primary osteoarthritis, left knee (principal)
CPT/HCPCS: 99203

== ENCOUNTER 2025-06-17 08:46 | Outpatient (REF) | payer MEDICAID, SELFPAY ==
--- NOTE | ~2025-06-17 | CT_ITS ---
EXAMINATION: CT TEMPORAL BONES. CLINICAL INFORMATION: Chronic pulsatile tinnitus COMPARISON: Correlated to CT angiogram head neck dated November 23, 2024. TECHNIQUE: Contiguous axial images through the temporal bones with bone algorithm. Sagittal and coronal reformatted images acquired. This CT examination was performed using dose optimization techniques as appropriate, variously including the following: *Automated exposure control *Adjustment of mA and/or kV according to patient size (this includes techniques or standardized protocols for targeted exams where dose is matched to indication/reason for exam; i.e. extremities or head) *Use of iterative reconstruction technique DLP: 148 mGy-cm FINDINGS: RIGHT PETROUS BONE: Cartilage and osseous segments external auditory canal are patent. Tympanic membrane is not thickened. Tympanic cavity is well pneumatized and aerated. Sinus tympani, is aerated. Ossicles are intact with normal alignment. Tegmen tympani is intact. Scutum is intact. Oval window and right window are aerated. Aditus at antrum, mastoid antrum and mastoid air cells are well pneumatized and aerated. Fallopian canal: labyrinthic , geniculate, tympanic and mastoid segments are intact. Cochlear, vestibule and semicircular canals are intact. Internal auditory canal is intact. Vestibular and cochlear aqueducts are not enlarged. Jugular foramen is intact and normal anatomic position. Carotid canal is intact. Temporal mandibular joint is intact. LEFT PETROUS BONE: Cartilage and osseous segments external auditory canal are patent. Tympanic membrane is not thickened. Tympanic cavity is well pneumatized and aerated. Sinus tympani, is aerated. Ossicles are intact with normal alignment. Tegmen tympani is intact. Scutum is intact. Oval window and right window are aerated. Aditus at antrum, mastoid antrum and mastoid air cells are well pneumatized and aerated. Fallopian canal: labyrinthic , geniculate, tympanic and mastoid segments are intact. Cochlear, vestibule and semicircular canals are intact. Internal auditory canal is intact. Vestibular and cochlear aqueducts are not enlarged. Jugular foramen is intact and normal anatomic position. Carotid canal is intact. Temporal mandibular joint is intact. Ancillary findings: Small volume air-fluid levels in the left saphenous sinus. Calcified plaques in the cavernous supraclinoid segments of the ICA pronounced on the left side. CT/CT mastoid IMPRESSION: No high riding internal jugular bulb. Normal temporal bones. Electronically signed by: Jero Nickerson MD 06/17/2025 10:21 AM EDT
--- OUTSIDE RECORDS SUMMARY | 2025-06-17 09:38 | XMS_ITS | Clinical Summary ---
Author Organization [employer] Address [address] [place] [address] Care Team Providers Care Data Security Coordinator Name Role Phone Wendy Pang MD Primary Care Pro vider Allergies Active Allergy Reactions Criticality Noted Date Comments Atorvastatin Muscle Pain 05/29/2025 Pt had CPK elevation In 500s that resolved after stopped med Medications * This document contains information received from the source organization and may not represent a complete record from that organization. Blood Pressure kit 1 Device Once per day. 1 kit 04/28/20 24 Active losartan-hydro CHLOROthiazide (Hyzaar) 100-12.5 MG tablet TAKE 1 TABLET BY MOUTH EVERY DAY 90 tablet 3 10/16/19 25 Active polyvinyl alcohol (Liquifilm Tears) 1.4 % ophthalmic solutionIndica tions:Dry eyes, bilateral Administer 1 drop into both eyes if needed for dry eyes. 15 mL 5 12/02/19 25 Active Tirzepatide-We ight Management (Zepbound) 15 MG/0.5ML solution auto-injector Inject 0.5 mL (15 mg) under the skin 1 (one) time per week. 6 mL 3 03/16/20 25 026 Active cetirizine (ZyrTEC) 10 MG tablet TAKE 1 TABLET BY MOUTH EVERY EVENING 90 tablet 04/09/20 25 Active levothyroxine (Synthroid, Levoxyl) 88 MCG tablet TAKE 1 TABLET BY MOUTH EVERY MORNING BEFORE BREAKFAST 90 tablet 1 05/12/20 25 Active traZODone (Desyrel) 50 MG tablet Take by mouth at bedtime. Active lidocaine (Lidoderm) 5 % patchIndicatio ns:Sprain of anterior talofibular ligament of left ankle, initial encounter Apply 1 patch topically Once per day. Remove & discard patch within 12 hours or as directed by MD. 30 patch 3 10/10/20 25 Active ammonium lactate (Lac-Hydrin) 12 % lotion Apply topically at noon and in the evening. 225 g 2 05/28/20 25 Active DULoxetine (Cymbalta) [address] capsuleIndicat ions:PTSD (post-traumati c stress disorder) TAKE 1 CAPSULE BY MOUTH TWICE DAILY IN THE MORNING AND IN THE EVENING DO NOT BREAK, CRUSH, DISSOLVE OR CHEW 60 capsule 2 06/02/20 Active pregabalin (Lyrica) 150 MG capsuleIndicat ions:Polyarthr algia Take 1 capsule (150 mg) by mouth 2 times daily. Do not start before June 09, 2025. 60 capsule 2 06/09/20 25 Active melatonin 5 MG tablet Take 1 tablet (5 mg) by mouth at bedtime. 90 tablet 06/07/20 Active ezetimibe (Zetia) 10 MG tablet Take 1 tablet (10 mg) by mouth Once per day. 90 tablet 06/07/20 25 Active ibuprofen 800 MG tablet 800 mg. Discontinued(Ot her) traZODone (Desyrel) 50 MG tabletIndicati ons:PTSD (post-traumati c stress disorder) Take 0.5 tablets (25 mg) by mouth at bedtime. May take 1 tablet (50 mg) by mouth at bedtime as needed. 20 tablet 11/17/19 25 Discontinued(Ot her) DULoxetine (Cymbalta) [address] capsuleIndicat ions:PTSD (post-traumati c stress disorder) TAKE 1 CAPSULE BY MOUTH TWICE DAILY IN THE MORNING AND IN THE EVENING DO NOT BREAK, CRUSH, DISSOLVE OR CHEW 60 capsule 2 03/12/20 25 Discontinued pregabalin (Lyrica) 150 MG capsuleIndicat ions:Polyarthr algia Take 1 capsule (150 mg) by mouth 2 times daily. 60 capsule 2 03/16/20 25 025 Discontinued melatonin 5 MG tablet Take 1 tablet (5 mg) by mouth at bedtime. 90 tablet 03/18/20 25 025 Discontinued(Re order (will not trigger notification to Pharmacy)) ezetimibe (Zetia) 10 MG tablet Take 1 tablet (10 mg) by mouth Once per day. 90 tablet 03/24/20 025 Discontinued(Re order (will not trigger notification to Pharmacy)) lidocaine (Lidoderm) 5 % patchIndicatio ns:Sprain of anterior talofibular ligament of left ankle, initial encounter Apply 1 patch topically Once per day. Remove & discard patch within 12 hours or as directed by MD. 30 patch 04/07/20 025 Discontinued(Re order (will not trigger notification to Pharmacy)) Active Problems Problem Noted Date Diagnosed Date Symptomatic spider varicose vein 05/29/2025 Dry skin 05/29/2025 Sprain of anterior talofibular ligament of left [...] smear of cervix 09/16/2024 Postmenopausal bleeding 09/16/2024 Intractable 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 aura and [...] (Eric Ruff) and has a therapist in [place] (agency unknown). Pt will continue current MH [...] (Eric Ruff) and has a therapist in [place] (agency unknown). Pt will continue current treatment [...] organization. Date Type Department Care Team Description 06/09/[address] [address] Wendy Pang MD Jimbo recall 06/09/[address] [address] Wendy Pang MD 06/07/[address] [address] Wendy Pang MD 06/02/2025 Refill [facility] [address] [place] [address] Wendy Pang MD PTSD (post-traumatic stress disorder); Polyarthralgia 05/28/2025 1:15 PM EDT Office Visit [address] [address] Wendy Pang MD Leg mass, left (Primary Dx); Sprain of anterior talofibular ligament of left ankle, initial encounter; Encounter for immunization; Varicose veins of both lower extremities with inflammation; Primary hypertension; Pulsatile tinnitus of both ears; Class 2 severe obesity due to excess calories with serious comorbidity and body mass index (BMI) of 39.0 to 39.9 in adult; Health care maintenance; Neck pain; Symptomatic spider varicose vein; Dry skin; Left foot pain 05/28/2025 Travel 05/27/2025 Telephone [facility] [address] [place] [phone] Wendy Pang MD chart prep 05/21/2025 Patient Outreach [facility] [address] [place] [address] Wendy Pang MD Pre-visit Planning (SDOH was already completed) 05/19/2025 Results Follow-Up [facility] [address] [facility] [place] [address] Wendy Pang MD Comprehensive Metabolic Panel, Lipid Panel, Standard, Creatine Kinase, Total 05/19/2025 Orders Only [facility] External Provider, [facility] 05/19/2025 Travel 05/18/2025 Telephone [facility] [address] [facility] [place] [address] Wendy Pang MD 05/11/2025 Refill [facility] [address] [place] [address] Wendy Pang MD 04/12/2025 Results Follow-Up [facility] [address] [facility] [place] [address] Wendy Martell MD XR Ankle 3+ Views Left 04/09/2025 Refill [facility] [address] [place] [address] Wendy Pang MD 04/07/2025 11:00 AM EDT Office Visit [facility] [place] [address] [place] [address] Wendy Martell MD Sprain of anterior talofibular ligament of left ankle, initial encounter 04/07/2025 Travel 04/01/2025 Telephone [facility] [address] [place] [address] Guadalupe Grimes, RN Results 03/30/2025 Telephone [facility] [address] [place] [address] Wendy Pang MD Durable Medical Equipment 03/25/2025 Orders Only [facility] [address] [facility] [place] [address] Wendy Pang MD 03/25/2025 Orders Only [facility] [address] [place] [address] Mychal Raymond MD 03/24/2025 Orders Only [facility] [place] [address] [facility] [place], [place] [phone] Wendy Pang MD Mixed hyperlipidemia (Primary Dx) 03/24/2025 Orders Only [facility] [address] [place] [address] Wendy Pang MD 03/22/2025 Telephone [facility] [address] [place] [phone] Wendy Pang MD Durable Medical Equipment 03/19/2025 Results Follow-Up [address] [address] Wendy Pang MD Urinalysis Complete, Creatine Kinase, Total, Lactate Dehydrogenase (LD), Additional followed-up results: 3 03/19/[address] [address] Wendy Pang MD Prior Authorization 03/18/2025 11:30 AM EDT Office Visit [address] [address] Wendy Pang MD Pulsatile tinnitus of both ears (Primary Dx); Prediabetes; Primary hypertension; Mixed hyperlipidemia; Class 2 severe obesity due to excess calories with serious comorbidity and body mass index (BMI) of 39.0 to 39.9 in adult ([facility]); Transaminitis; Health care maintenance; Fibromyalgia; Bilateral carpal tunnel syndrome; Leg mass, left; Weakness generalized 03/18/2025 Travel 03/17/[address] [address] Wendy Pang MD chart prep from Last 3 Months Immunizations Immunization Administration Dates Next Due Hep B, Dialysis 02/22/2025 Influenza, seasonal, injectable, preservative fr ee 05/28/2025,06/16/2024 Tdap 04/28/2024 Zoster, Recombinant 10/26/2024,07/08/2024 Family History [...] Sign Reading Time Taken Comments Blood Pressure 130/76 05/28/2025 1:12 PM EDT Pulse 56 05/28/2025 1:12 PM EDT Temperature 36.1 C (97 F) 05/28/2025 1:12 PM EDT Respiratory Rate 20 05/28/2025 1:12 PM EDT Oxygen Saturation 97% 04/07/2025 10:04 AM EDT Inhaled Oxygen Concentration - - Weight 83.1 kg (183 lb 3.2 oz) 05/28/2025 1:12 P M EDT Height 154.9 cm (5' 1 ) 05/28/2025 1:12 PM EDT Body Mass Index 34.62 05/28/2025 1:12 PM EDT Plan of Treatment Health Maintenance Due Date Last Done Comments CT Colonography 1970 FIT DNA/Cologuard 1970 FIT 1970 FOBT 1970 Sigmoidoscopy 1970 Diabetes: Foot Exam 1980 Pneumococcal Vaccine: 50+ Years (1 of 2 - PCV) 1989 Colonoscopy 01/09/2024 Colorectal Cancer Screening 01/09/2024 Hepatitis B Vaccines (2 of 3 - 19+ 3-dose series) 03/22/2025 02/22/2025 COVID-19 Vaccine (2023- season) 2025 Depression Monitoring 05/22/2025 11/20/2024, 025 Diabetes: Urine Protein Screening 06/12/2025 06/12/2024 Diabetes: Hemoglobin A1C 09/18/2025 025, 06/12/2024, 12/30/2023 Alcohol/Substance Use Screening 11/20/2025 11/20/2024 Disability Screening 11/20/2025 11/20/2024 Cervical Cancer Screening 01/04/2026 HPV/Cotest 01/04/2026 01/09/2024, 12/18, 12/12/2022 Pap Smear 01/04/2026 01/04/2025, 12/18, 01/08/2024, Additional history exists SDOH Screening 01/13/2026 01/13/2025 Mammogram 03/04/2026 03/04/2025, 0708/2023, 01/21/2023, Additional history exists Lipid Panel 05/19/2026 05/19/2025, 06/0 01/2025, 06/12/2024 Tobacco Screening 05/28/2026 05/28/2025 Eye Exam 12/01/2026 12/01/2024, 0412/2024, 12/01/2024, Additional history exists DTaP/Tdap/Td Vaccines (2 - Td or Tdap) 04/28/2034 04/28/2024 RSV Patients and Patients Aged 60 years or older (1 - 1-dose 75+ series) 2045 Colposcopy Discontinued 02/11/2024, 01/17, 01/31/2023 HIV Screening Completed 06/12/2024 Hepatitis C Screening Completed 06/12/2024 Zoster Vaccines Completed 10/26/2024, 07/08/2024 Influenza Vaccine Completed 05/28/2025, 06/16/2024 HIB Vaccines Aged Out No longer [...] Laterality Modality Lower Extremities, Knee Left Radiogra phic Imaging 05/20/2025 10:5 8 AM EDT Narrative 05/20/2025 11:10 AM EDT [facility] [address] [place] [address] XRay Report Signed Patient: Jocelin Auguste R#: [id number] : 1970 Acct:[id number] Age/Sex: 54 / F ADM Date: 05/20/25 Loc: HO.HOSX Attending Dr: Cullen Hunter MD Ordering Physician: Cullen Hunter MD Date of Service: 05/20/25 Procedure(s): XR knee LT 3V Accession Number(s): [id number] cc: Wendy Pang MD; Cullen Hunter MD [...] 05/20/25 1107 DD/ 1058 TD/TT: 05/20/25 1100 [employer] Hacker: Procedure Note Donotuseinterpreter, Image - 05/20/[address] [facility] [address] [place] [address] XRay Report Signed Patient: Jo Auguste R#: [id number] : 1970Acct:[id number] Age/Sex: 54 / FADM Date: 05/20/25 Loc: HO.HOSX Attending Dr: Cullen Hunter MD Ordering Physician: Cullen Hunter MD Date of Service: 05/20/25 Procedure(s): XR knee LT 3V Accession Number(s): [id number] cc: Wendy Pang MD; Cullen Hunter MD [...] 05/20/25 1107 DD/ 1058 TD/TT: 05/20/25 1100 White Hat Hacker: [facility] External Provider IMG XR PROCEDURES Edited Result - Final * XR CERVICAL SPINE 4V (05/19/2025 9:02 AM EDT) Anatomical Region Laterality Modality Abdomen Radiographic Jeanine ging 05/19/2025 9:02 AM EDT Narrative 05/19/2025 9:42 AM EDT [address] [address] XRay Report Signed Patient: Jocelin Auguste R#: [id number] : 1970 Acct:[id number] Age/Sex: 54 / F ADM Date: 05/19/25 Loc: HO.HHCX Attending Dr: Cullen Hunter MD Ordering Physician: Cullen Hunter MD Date of Service: 05/19/25 Procedure(s): XR cervical spine 4V Accession Number(s): [id number] cc: Wendy Pang MD; Cullen Hunter MD [...] MD in OV> 05/19/[address] DD/ 1 TD/TT: 05/19/25 09 [employer]acker: Procedure Note Donotuseinterpreter, Image - 05/19/[address] [address] XRay Report Signed Patient: Jo Augsute R#: [id number] : 1970Acct:[id number] Age/Sex: 54 / FADM Date: 05/19/25 Loc: HO.HHCX Attending Dr: Cullen Hunter MD Ordering Physician: Cullen Hunter MD Date of Service: 05/19/25 Procedure(s): XR cervical spine 4V Accession Number(s): [id number] cc: Wendy Pang MD; Cullen Hunter MD [...] Pate MD in OV> 05/19/25 0939 DD/ 09 TD/TT: 05/19/25 0903 White [employer] Hacker: [facility] External Provider IMG XR PROCEDURES Final Result * Creatine Kinase, Total (05/19/2025 8:54 AM EDT) Only the most recent of2 resultswithin the time period is included. Creatine Kinase Total 110 26 - 140 U/L [facility] Blood Venous blood specimen / Unknown 05/19/2025 8:54 AM EDT 05/19/2025 11:04 AM EDT us Wendy Vance MD LAB BLOOD ORDERAB LES Final Result [facility] [address] [place] [address] [phone] * (ABNORMAL) Lipid Panel, Standard (05/19/2025 8:54 AM EDT) Triglycerides 127 <150 mg/dL [facility] Comment:Desirable Triglyceri de: less than 150 mg/dLBorderline High Triglyceride 150-199 mg/dLHigh Triglyceride: 200-499 mg/dLVery High Triglyceride: greater than or equal to 5OO mg/dL Cholesterol 183 <200 mg/dL [facility] Comment:Desirable Cholestero l: less than 200 mg/dLBorderline High Cholesterol: 200-239 mg/dLHigh Cholesterol: greater than 239 mg/dL LDL Cholesterol Calculated 118(H) <100 mg/dL [facility] Comment:Desirable LDL: less than 100 mg/dLNear Optimal/Above Optimal LDL: 110- 129 mg/dLBorderline High LDL: 130-159 mg/dLHigh LDL: 160-189 mg/dLVery High LDL: greater than or equal to 190 mg/dL HDL Cholesterol 40(L) >40 mg/dL [facility] Comment:Desirable HDL: great er than 40 mg/dL Note: This HDL assay may give artificially low results in patients with liver disease. Blood Venous blood specimen / Unknown 05/19/2025 8:54 AM EDT 05/19/2025 11:04 AM EDT us Wendy Vance MD LAB BLOOD ORDERAB LES Final Result [facility] [address] [place] [address] [phone] * (ABNORMAL) Comprehensive Metabolic Panel (05/19/2025 8:54 AM EDT) Sodium 144 135 - 145 mmol/L [facility] Potassium 3.8 3.3 - 5.1 mmol/L [facility] Chloride 109(H) 96 - 108 mmol/L [facility] Carbon Dioxide 27 22 - 29 mmol/L [facility] Anion Gap 12 12 - 20 [facility] Urea Nitrogen (BUN) 21(H) 9 - 16 mg/dL [facility] Creatinine, Serum 0.66 0.5 - 1.4 mg/dL [facility] Estimated Glomerular Filt Rate >60 [facility] Comment:Chronic Kidney Disea se: Estimated GFR < 60 mL/min/[id number] Kidney Disease: Estimated GFR < 15 mL/min/1.73m2 Glucose 85 60 - 115 mg/dL [facility] Calcium 9.4 8.4 - 10.2 mg/dL [facility] Bilirubin, Total 0.2 0.0 - 1.0 mg/dL [facility] Aspartate Amino Transferase 33(H) 5 - 31 U/L [facility] Alanine Aminotransferase 34(H) 0 - 31 U/L [facility] Total Protein 7.9 6.5 - 8.0 g/dL [facility] Albumin Level 4.5 3.5 - 5.0 g/dL [facility] Alkaline Phosphatase 69 39 - 117 U/L [facility] Blood Venous blood specimen / Unknown 05/19/2025 8:54 AM EDT 05/19/2025 11:04 AM EDT us Wendy Vance MD LAB BLOOD ORDERAB LES Final Result [facility] [address] [place] [address] [phone] * Referral to Sleep Medicine (05/12/2025) us Wendy Vance MD OUTPATIENT REFERR AL ORDERABLES Final Result * XR Ankle 3+ Views Left (04/08/2025 9:08 AM EDT) Anatomical Region Laterality Modality Lower Extremities, Ankle Left Radiogr aphic Imaging 04/08/2025 9:08 AM EDT Narrative 04/08/2025 9:26 AM EDT [address] [address] XRay Report Signed Patient: Jocelin Auguste R#: [id number] : 1970 Acct:[id number] Age/Sex: 54 / F ADM Date: 04/08/25 [facility]: Wendy Claudio MD Ordering Physician: Wendy Martell MD Date of Service: 04/08/25 Procedure(s): XR ankle LT min 3V Accession Number(s): [id number] cc: Wendy Martell MD; Wendy Pang MD [...] signed by Jero Grimes MD in OV> 04/08/[address] DD/ 7 TD/TT: 04/08/25913 White [employer] Hacker: Procedure Note Donotuseinterpreter, Image - 04/08/[address] [address] XRay Report Signed Patient: Jo Auguste R#: [id number] : 1970Acct:[id number] Age/Sex: 54 / FADM Date: 04/08/25 Loc: HO.HHCX Attending Dr: Wendy Claudio MD Ordering Physician: Wendy Martell MD Date of Service: 04/08/25 Procedure(s): XR ankle LT min 3V Accession Number(s): [id number] cc: Wendy Martell MD; Wendy Pang MD [...] by Jero Grimes MDin OV> 04/08/25922 DD/ 0908 TD/TT: 04/08/25 0914 White Hat Hacker: us Wendy Claudio MD IMG XR PROCEDURES Fin al Result * Nerve conduction test (04/01/2025) us Wendy Vance MD NEUROLOGY ORDERAB LES Final Result * Myositis Specific 11 Antibody Panel (03/19/2025 11:14 AM EDT) Liv-1 Ab <11 <11 [facility] Pl-7 Ab <11 <11 [facility] Pl-12 Ab <11 <11 [facility] Ej Ab <11 <11 [facility] Oj Ab <11 <11 [facility] SRP Ab <11 <11 [facility] Mi-2 alpha Ab <11 <11 [facility] Mi-2 beta Ab <11 <11 [facility] MDA5 Ab <11 <11 [facility] TIF1 gamma Ab <11 <11 [facility] NXP-2 (MJ) Ab <11 <11 [facility] Comment: Myositis-specific autoantibodies (MSAs) are [...] association with a rash. Additionally, MSAsto MDA5 ([id number]) have been identified in patients withclinically amyopathic [...] its analytical performancecharacteristics have been determined by [employer]. It has not been cleared or approved bythe FDA. This assay has been validated pursuant to theCLIA regulations and is used for clinical purposes.THIS TEST WAS PERFORMED AT:[id number] [place] [address]FESLOVALENTÍN JUNE MD,PHD,DAVID Blood Venous blood specimen / Unknown 03/19/2025 11:14 AM EDT 03/19/2025 12:09 PM EDT Wendy Vance MD LAB BLOOD ORDERAB LES Final Result Performing Organization Address [facility]/ZIP Co de Phone Number [facility] [address] [place] [phone] * Aldolase (03/19/2025 11:14 AM EDT) Aldolase 6.3 <=8.1 U/L [facility] Comment:THIS TEST WAS PERFOR MED AT:[id number] [place] [address]PHFKWUJBEN JERNIGAN MD,PHD Blood Venous blood specimen / Unknown 03/19/2025 11:14 AM EDT 03/19/2025 12:17 PM EDT us Wendy Vance MD LAB BLOOD ORDERAB LES Final Result Performing Organization Address [facility]/ZIP Co de Phone Number [facility] [address] [place] [phone] * (ABNORMAL) Urinalysis Complete (03/19/2025 11:14 AM EDT) Color Urine Dark Yellow [facility] Appearance Urine Clear [facility] PH 5.5 5.0 - 9.0 [facility] Glucose Urine UA Negative Negative mg/dL [facility] Urine Blood Negative Negative [facility] Specific Chappell - Urine >=1.030(H) 1.005 - 1.025 [facility] Urine Protein Trace Neg-Trace mg/dL [facility] Urine Ketones Trace Negative mg/dL [facility] Nitrite Urine Negative Negative [facility] Leukocyte Esterase Urine Negative Negative [facility] RBC Urine 0-2 0 - 2 /HPF [facility] Urine WBC 0-5 0 - 5 /HPF [facility] Urine Squamous Epithelial Cell 0-2 0 - 2 /HPF [facility] Urine Bacteria None Seen None Seen [facility] Hyaline Casts, Urine 0-2 0 - 2 /LPF [facility] Urine (Urine, Random) 03/19/2025 11:14 AM EDT 03/19/2025 11:56 AM EDT us Wendy Vance MD LAB URINE ORDERAB LES Final Result [facility] [address] [place] [address] [phone] * Protein, Total and Protein??Electrophoresis (03/19/2025 11:14 AM EDT) Prot Elec - Total Protein 7.3 6.1 - 8.1 g/dL [facility] Prot Elec - Albumin 4.2 3.8 - 4.8 g/dL [facility] Prot Elec - Alpha1 0.3 0.2 - 0.3 g/dL [facility] Prot Elec - Alpha2 0.8 0.5 - 0.9 g/dL [facility] Prot Elec - Beta 1 0.4 0.4 - 0.6 g/dL [facility] Prot Elec - Beta 2 0.5 0.2 - 0.5 g/dL [facility] Prot Elec - Gamma 1.1 0.8 - 1.7 g/dL [facility] PES - Abn Protein Band 1 [facility] PES-Abn Protein Band 2 [facility] PES-Abn Protein Band 3 [facility] Prot Elec - Interpretation SEE NOTE [facility] Comment:Normal Serum Protein Electrophoresis Pattern.No abnormal protein bands (M-protein) detected.THIS TEST WAS PERFORMED AT:[facility] [place] [id number] DAN MD Blood Venous blood specimen / Unknown 03/19/2025 11:14 AM EDT 03/19/2025 12:09 PM EDT Wendy Vance MD LAB BLOOD ORDERAB LES Final Result Performing Organization Address City/[facility]/ZIP Co de Phone Number [facility] [address] [place] [phone] * Lactate Dehydrogenase (LD) (03/19/2025 11:14 AM EDT) Lactate Dehydrogenase 214 122 - 220 U/L [facility] Blood Venous blood specimen / Unknown 03/19/2025 11:14 AM EDT 03/19/2025 12:17 PM EDT us Wendy Vance MD LAB BLOOD ORDERAB LES Final Result Performing Organization Address [facility] Co de Phone Number [facility] [address] [place] [phone] * POCT Glucose (03/18/2025 11:55 AM [...] EDT Narrative 03/15/2025 10:34 AM EDT [facility] [address] [place], [place] [address] Mammography Report Signed Patient: Jocelin Auguste R#: [id number] : 1970 Acct:[id number] Age/Sex: 54 / F ADM Date: 03/04/25 Loc: HO.MAMMO Attending Dr: Wendy Vance MD Ordering Physician: Wendy Pang MD Re sults: 1Negative Date of Service: 03/04/25 Follow Up: 1 Year From Orig inal Mammogram Procedure(s): MM tomosynthesis screening BI Accession Number(s): [id number] cc: Wendy Pang MD EXAMINATION: MM SCREENING [...] Keyonna Colin DO 03/15/2025 10:31 AM EDT RP Dictated By: Keyonna Colin DO Signed By: <Electronically signed by Keyonna Colin DO in OV> 03/15/25 1031 DD/ TD/TT: 03/04/25 0949 White Hat Hacker: Procedure Note Donotuseinterpreter, Image - 03/15/[facility] [address] [place], [place] [address] Mammography Report Signed Patient: Jo Auguste R#: [id number] : 1970Acct:[id number] Age/Sex: 54 / FADM Date: 03/04/25 Loc: HO.MAMMO Attending Dr: Wendy Vance MD Ordering Physician: Wendy Pang sults: 1Negative Date of Service: 03/04/25Follow Up: 1 Year From Orig inal Mammogram Procedure(s): MM tomosynthesis screening BI Accession Number(s): [id number] cc: eWndy Pang MD EXAMINATION: MM SCREENING DIGITAL BREAST [...] Keyonna Colin DO 03/15/2025 10:31 AM EDT RP Dictated By: Keyonna Colin DO Signed By: <Electronically signed by Keyonna Colin DO in OV> 03/15/25 1031 DD/ 0926 TD/TT: 03/04/25 0949 White Hat Hacker: Wendy Vance MD IMG BI PROCEDURES Final Result * HM PAP/HPV (01/04/2025 9:22 AM EDT) Only the most recent of2 resultswithin the time period is included. Historical Provider HEALTH MAINTENANCE Final Result * Albumin, Random Urine W/Creatinine (06/12/2024 11:40 AM EDT) Creatinine, Urine 195.62 mg/dL [facility] Microalbumin Urine 41.0 mg/L [facility] Microalbum Creatinine Ratio Ur 20.9 <30 ug/mg cr [facility] Comment:Albumin/Creatinine R atio Reference Ranges: Normal: < 30 ug/mg creatinine Microalbuminuria: 30 - 300 ug/mg creatinineClinical Albuminuria: > 300 ug/mg creatinine Urine (Urine, Random) 06/12/2024 11:40 AM EDT 06/12/2024 1:08 PM EDT Result [facility] Wendy Vance MD LAB URINE ORDERAB LES Final Result [facility] [address] [place] [address] [phone] * Hepatitis C Antibody with Reflex to HCV, RNA, Quantitative, Real-Time PCR (06/12/2024 11:39 AM EDT) Hepatitis C Antibody Nonreactive Nonreactive [facility] Comment:Antibodies to HCV no t detected; does not exclude early acuteHCV infection. Blood Venous blood specimen / Unknown 06/12/2024 11:39 AM EDT 06/12/2024 1:19 PM EDT Wendy Vance MD LAB BLOOD ORDERAB LES Final Result Performing Organization Address [facility]/ZIP Co de Phone Number [facility] [address] [place] [address] [phone] * HIV-1/2 Antigen and Antibodies, Fourth Generation, with Reflexes (06/12/2024 11:39 AM EDT) HIV AB/AG Nonreactive Nonreactive [facility] Comment:HIV-1 p24 Ag and/or HIV-1/HIV-2 Ab not detected.A test result that is nonreactive does not exclude thepossibility of exposure to or infection with HIV-1 and/orHIV-2. Nonreactive results in this assay for individualswith prior exposure to HIV-1 and/or HIV-2 may be due toantigen and antibody levels that are below the limit ofdetection of this assay.The [employer] HIV Ag/Ab Combo assay result andsupplemental assay results should be interpreted inconjunction with the patient's clinical presentation,history and other laboratory results. If the results areinconsistent with clinical evidence, additional testing issuggested to confirm the result. Blood Venous blood specimen / Unknown 06/12/2024 11:39 AM EDT 06/12/2024 1:19 PM EDT us Wendy Vance MD LAB BLOOD ORDERAB LES Final Result Performing Organization Address [facility] Co de Phone Number [facility] [address] [place] [address] [phone] * Colposcopy (02/11/2024 9:20 AM EDT) us Historical Provider IN CLINIC/BEDSIDE ORDERAB LES Edited Result - Final from Last 3 Months or Most Recently Relevant to Health Maintenance [facility] Care Teams Data Security Coordinator Relationship Specialty Start Date End Date Wendy Pang MD [address] [place] [phone] PCP - General Internal Medicine 02/23/23
--- OUTSIDE RECORDS SUMMARY | 2025-06-17 09:39 | XMS_ITS | Encounter Summary ---
Author Organization [employer] Address 75 [facility] 7[place] [address] Care Team Providers Care Refrigeration Tech Name Role Phone Wendy Pang MD Primary Care Pro vider Reason for Visit * Reason Comments Med Refill Encounter Details Date Type Department Care Team (Late st Contact Info) Description 03/15/2025 Refill [facility] MEDICINE [address] [place] [address] Wendy Pang MD [address] [place] [address] Polyarthralgia Social History Tobacco Use Types Packs/Day [...] documented in this encounter Plan of Treatment Not on file documented as of this encounter Visit Diagnoses Diagnosis Polyarthralgia Pain in joint, multiple sites documented in this encounter Additional Health Concerns Assessment Noted Time PHQ-9 Depression Total Score: 17 025 9:06 AM EDT documented as of this encounter Care Teams Refrigeration Tech Relationship Specialty Start Date End Date Wendy Pang MD [address] [place] [phone] PCP - General Internal Medicine 02/23/23 documented as of this encounter
--- OUTSIDE RECORDS SUMMARY | 2025-06-17 09:39 | XMS_ITS | Encounter Summary ---
Author Organization [employer] Address 75 [facility] [address] [address] Care Team Providers Care Marketing Assistant Retail Division Name Role Phone Wendy Pang MD Primary Care Pro vider Reason for Visit * Reason Onset Date Comments Nurse Triage 03/11/2023 Encounter Details Date Type Department Care Team (Late st Contact Info) Description 03/11/2023 Telephone [facility] MED[facility]INE [address] [place] [address] Wendy Pang MD 230 [place] [address] Nurse Triage Social History Tobacco Use Types [...] 03/14/2023 11:06 AM EDT Triage call with [employer] Geographic Analyst [place] [id number]. Pt was triaged 03/11/23 and advised to come to [facility] to be seen but, didn't go. Pt reports doesn't want to go to [facility] because, I have too many issues Caorl only want my doctor . Pt is offered 300pm apt with Dr. Villegas today but, reports no transportation. Advised Pt has 04/18/23 apt for transfer to Dr. Jama Vance and Pt reports my friend said thereare many apts open with Dr. Yun earlier than that and I want to go 03/25. . [employer] looked at schedule for that day and [...] still has severe pain. Please contact at [phone] * Telephone Encounter - Beryl Schuster RN - 03/11/2023 1:25 PM EDT Triage call with [employer] Geographic Analyst [place] [id number] Pt reports shoulder, neck, middle to low [...] accepted this outcome Please contact pt at [phone] Togolese Speaker documented in this encounter Plan of Treatment Not on file documented as of this encounter Visit Diagnoses Not on filedocumented in this encounter Care Teams Marketing Assistant Retail Division Relationship Specialty Start Date End Date Wendy Pang MD [address] [place] [address] PCP - General Internal Medicine 02/23/23 documented as of this encounter
--- OUTSIDE RECORDS SUMMARY | 2025-06-17 09:39 | XMS_ITS | Encounter Summary ---
Author Organization [employer] Address 75 [facility] [address], [place] [address] Care Team Providers Care Maintainer Sewer And Waterworks Name Role Phone Wendy Pang MD Primary Care Pro vider Reason for Visit * Reason Onset Date Comments Accamodation Letter 06/25/2024 Encounter Details Date Type Department Care Team ([facility] st Contact Info) Description 06/25/2024 Telephone [facility] MED[facility]INE [address] [place] [address] Wendy Pang MD 230 [place] [address] Accamodation Letter Social History Tobacco Use Types [...] Miscellaneous Notes * Telephone Encounter - Chad Julio - 06/25/2024 4:23 PM EST Tc from pt requesting an accomodation letter for her bath tub to be changed. Pt stated she's finding it increasingly difficult to lift her legs to be able to enter the bath. If any questions you can contact pt at [phone]. (Kinyarwanda Speaker) documented in this encounter Plan of Treatment Not on file documented as of this encounter Visit Diagnoses Not on filedocumented in this encounter Additional Health Concerns Assessment Noted Time PHQ-9 Depression Total Score: 024 1:15 PM EDT documented as of this encounter Care Teams Maintainer Sewer And Waterworks Relationship Specialty Start Date End Date Wendy Pang MD [address] [place] [address] PCP - General Internal Medicine 02/23/23 documented as of this encounter
--- OUTSIDE RECORDS SUMMARY | 2025-06-17 09:39 | XMS_ITS | Encounter Summary ---
Author Organization [employer] Address 75 [facility] 7t [place] [address] Care Team Providers Care Unix Engineer Name Role Phone Wendy Pang MD Primary Care Pro vider Reason for Visit * Reason Comments Med Refill Encounter Details Date Type Department Care Team (Late st Contact Info) Description 01/20/2025 Refill [facility] MEDICINE [address] [place] [address] Wendy Pang MD [address] [place] [address] Social History Tobacco Use Types Packs/Day Years [...] as of this encounter Plan of Treatment Not on file documented as of this encounter Visit Diagnoses Not on filedocumented in this encounter Additional Health Concerns Assessment Noted Time PHQ-9 Depression Total Score: 17 025 9:06 AM EDT documented as of this encounter Care Teams Unix Engineer Relationship Specialty Start Date End Date Wendy Pang MD [address] [place] [address] PCP - General Internal Medicine 02/23/23 documented as of this encounter
--- OUTSIDE RECORDS SUMMARY | 2025-06-17 09:39 | XMS_ITS | Encounter Summary ---
Author Organization [employer] Address 75 [facility] 7[place] [address] Care Team Providers Care Embossing Calender Operator Name Role Phone Wendy Pang MD Primary Care Pro vider Reason for Visit * Reason Onset Date Comments PT-1 08/04/2024 Encounter Details Date Type Department Care Team (Late st Contact Info) Description 08/04/2024 Telephone [facility] MEDICINE [address] [place] [address] Wendy Pang MD 230 [place] [address] PT-1 Social History Tobacco Use Types Packs/Day [...] documented as of this encounter Care Teams Embossing Calender Operator Relationship Specialty Start Date End Date Wendy Pang MD [address] [place] [address] PCP - General Internal Medicine 02/23/23 documented as of this encounter
--- OUTSIDE RECORDS SUMMARY | 2025-06-17 09:39 | XMS_ITS | Encounter Summary ---
Author Organization [employer] Address [address] [facility] [address] 7t [place] [address] Care Team Providers Care Services Executive Name Role Phone Wendy Pang MD Primary Care Pro vider Encounter Details Date Type Department Care Team (Late st Contact Info) Description 03/25/2025 Orders Only [facility] [address] [place], [place] [phone] Provider, MD Mychal Social History Tobacco Use [...] on file documented as of this encounter Procedures Procedure [...] documented as of this encounter Care Teams Services Executive Relationship Specialty Start Date End Date Wendy Pang MD [address] [place] [address] PCP - General Internal Medicine 02/23/23 documented as of this encounter
--- OUTSIDE RECORDS SUMMARY | 2025-06-17 09:39 | XMS_ITS | Encounter Summary ---
Author Organization [employer] Address 75 [facility] 7[address] [place] [address] Care Team Providers Care Over The Horizon Targeting Supervisor Name Role Phone Wendy Martell MD Primary Care Provide r Wendy Pang MD Primary Care Pro vider Encounter Details Date Type Department Care Team (Late st Contact Info) Description 02/18/2023 Orders Only [facility] MEDICINE [address] [place] [address] Jordana Jose CNM [address] [place] [address] Social History Tobacco Use Types Packs/Day Years [...] MD IN CLINIC/BEDSIDE ORDERABLES Fin al Result [facility] [address] [place] [address] [phone] documented in this encounter Visit Diagnoses Not on filedocumented in this encounter Care Teams Over The Horizon Targeting Supervisor Relationship Specialty Start Date End Date Wendy Martell MD 230 [place] [address] PCP - General Internal Medicine 11/22/22 02/22/23 Wendy Pang MD 230 [place] [address] PCP - General Internal Medicine 02/23/23 documented as of this encounter
--- OUTSIDE RECORDS SUMMARY | 2025-06-17 09:39 | XMS_ITS | Encounter Summary ---
Author Organization [employer] Address 75 [facility] 7t [place] [address] Care Team Providers Care Physician Executive Name Role Phone Wendy Pang MD Primary Care Pro vider Encounter Details Date Type Department Care Team (Latest Contact Info) Description 05/19/2025 Results Follow-Up [facility] MEDICINE [address] [place] [address] Wendy Pang MD [address] [place] [address] Comprehensive Metabolic Panel, Lipid Panel, Standard, Creatine [...] documented as of this encounter Care Teams Physician Executive Relationship Specialty Start Date End Date Wendy Pang MD [address] [place] [address] PCP - General Internal Medicine 02/23/23 documented as of this encounter
--- OUTSIDE RECORDS SUMMARY | 2025-06-17 09:39 | XMS_ITS | Encounter Summary ---
Author Organization [employer] Address 75 [facility] 7[place] [address] Care Team Providers Care Pan Devulcanizer Helper Name Role Phone Wendy Pang MD Primary Care Pro vider Reason for Visit * Reason Onset Date Comments pt1 12/14/2024 Encounter Details Date Type Department Care Team (Late st Contact Info) Description 12/14/2024 Telephone [facility] MEDICINE [address] [place] [address] Wedny Pang MD 230 [place] [address] pt1 Social History Tobacco Use Types Packs/Day [...] Y/N: Yes Provider name or facility name: [employer] [facility] [employer] [address] [facility] [address] Escort needed: Y/N: Yes Do you have a wheelchair: Y/N: No If yes- Manual or electric: Visits: (5) ( x monthly,) 2- Patient calling requesting PT1 Home Address verified: Y/N: Yes Provider name or facility name: [address] [place] [address] Escort needed: Y/N: Yes Do you have [...] documented as of this encounter Care Teams Pan Devulcanizer Helper Relationship Specialty Start Date End Date Wendy Pang MD [address] [place] [phone] PCP - General Internal Medicine 02/23/23 documented as of this encounter
--- OUTSIDE RECORDS SUMMARY | 2025-06-17 09:39 | XMS_ITS | Encounter Summary ---
Author Organization [employer] Address 75 [facility] 7t [place] [address] Care Team Providers Care Float Builder Name Role Phone Wendy Pang MD Primary Care Pro vider Reason for Visit * Reason Comments Med Refill Encounter Details Date Type Department Care Team (Late st Contact Info) Description 01/07/2025 Refill [facility] MEDICINE 230 [place] [address] Wendy Pang MD [address] [place] [address] Type 2 diabetes mellitus without complication, without long-term current use of insulin ([facility]) Social History Tobacco Use Types Packs/Day Years [...] documented as of this encounter Care Teams Float Builder Relationship Specialty Start Date End Date Wendy Pang MD [address] [place] [address] PCP - General Internal Medicine 02/23/23 documented as of this encounter
--- OUTSIDE RECORDS SUMMARY | 2025-06-17 09:39 | XMS_ITS | Encounter Summary ---
Author Organization [employer] Address 75 [facility] 7t [place] [address] Care Team Providers Care Director Of Managed Services Name Role Phone Wendy Pang MD Primary Care Pro vider Reason for Visit * Reason Onset Date Comments Durable Medical Equipment 06/23/2024 Prior Authorization 06/23/2024 Encounter Details Date Type Department Care Team (Late st Contact Info) Description 06/23/2024 Telephone [facility] MEDICINE 230 [place] [address] Wendy Pang MD [address] [place] [address] Durable Medical Equipment; Prior Authorization Social History [...] 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 Please contract pt at [phone]. (Estonian Speaker) documented in this encounter Plan of Treatment Not on file documented as of this encounter Visit Diagnoses Not on filedocumented in this encounter Additional Health Concerns Assessment Noted Time PHQ-9 Depression Total Score: 10 024 1:15 PM EDT documented as of this encounter Care Teams Director Of Managed Services Relationship Specialty Start Date End Date Wendy Pang MD [address] [place] [address] PCP - General Internal Medicine 02/23/23 documented as of this encounter
--- OUTSIDE RECORDS SUMMARY | 2025-06-17 09:39 | XMS_ITS | Encounter Summary ---
Author Organization [employer] Address 75 [facility] 7[address] [place] [address] Care Team Providers Care Furnace Stock Inspector Name Role Phone Wendy Pang MD Primary Care Pro vider Reason for Visit * Reason Onset Date Comments Med Refill 07/13/2024 Encounter Details Date Type Department Care Team (Late st Contact Info) Description 07/13/2024 Telephone [facility] MEDICINE 230 [place] [address] Wendy Pang MD [address] [place] [address] Med Refill Social History Tobacco Use Types [...] 11:39 AM EST Medication was sent to [facility] on 06/16/24 0.25 mg dose and 0.5 mg. * Telephone Encounter - Chad Kim - 07/13/2024 11:18 AM EST TC from pt requesting medication refill. Medications needing refill: Semaglutide-Weight Management (Wegovy) 0.25 MG/0.5ML solution auto-injector To be sent to: [facility] - [place], [place] - [address] [place] [address] documented in this encounter Plan of Treatment Not on file documented as of this encounter Visit Diagnoses Not on filedocumented in this encounter Additional Health Concerns Assessment Noted Time PHQ-9 Depression Total Score: 10 024 1:15 PM EDT documented as of this encounter Care Teams Furnace Stock Inspector Relationship Specialty Start Date End Date Wendy Pang MD 230 [place] [address] PCP - General Internal Medicine 02/23/23 documented as of this encounter
--- OUTSIDE RECORDS SUMMARY | 2025-06-17 09:39 | XMS_ITS | Encounter Summary ---
Author Organization [employer] Address 75 [facility] 7t [place] [address] Care Team Providers Care Bung Sewer Name Role Phone Wendy Pang MD Primary Care Pro vider Encounter Details Date Type Department Care Team (Late st Contact Info) Description 03/25/2025 Orders Only [facility] MEDICINE 230 [place], [place] [phone] Wendy Pang MD 230 [place] [address] Social History Tobacco Use Types Packs/Day Years [...] t he electric, gas, oil or water [employer] threatened to shut off services in your [...] documented as of this encounter Care Teams Bung Sewer Relationship Specialty Start Date End Date Wendy Pang MD [address] [place] [address] PCP - General Internal Medicine 02/23/23 documented as of this encounter
--- OUTSIDE RECORDS SUMMARY | 2025-06-17 09:39 | XMS_ITS | Encounter Summary ---
Author Organization [employer] Address 75 [facility] 7t [place] [address] Care Team Providers Care Casualty Claims Supervisor Name Role Phone Wendy Pang MD Primary Care Pro vider Encounter Details Date Type Department Care Team (Late st Contact Info) Description 08/13/2024 Telephone [facility] MEDICINE 230 [place], [place] [phone] Wendy Pang MD 230 [place] [address] Social History Tobacco Use Types Packs/Day Years [...] documented as of this encounter Care Teams Casualty Claims Supervisor Relationship Specialty Start Date End Date Wendy Pang MD [address] [place] [phone] PCP - General Internal Medicine 02/23/23 documented as of this encounter
--- OUTSIDE RECORDS SUMMARY | 2025-06-17 09:39 | XMS_ITS | Encounter Summary ---
Author Organization [employer] Address [address] [facility] 7t [place] [address] Care Team Providers Care Intake Clerk Name Role Phone Wendy Pang MD Primary Care Pro vider Reason for Visit * Reason Comments Med Refill Encounter Details Date Type Department Care Team (Late st Contact Info) Description 02/18/2025 Refill [facility] 230 [place], [place] [phone] Lana Obrien NP 230 [place] [address] Unspecified Eustachian tube disorder, left ear Social [...] documented as of this encounter Care Teams Intake Clerk Relationship Specialty Start Date End Date Wendy Pang MD [address] [place] [address] PCP - General Internal Medicine 02/23/23 documented as of this encounter
--- OUTSIDE RECORDS SUMMARY | 2025-06-17 09:39 | XMS_ITS | Encounter Summary ---
Author Organization [employer] Address [address] [facility] [address] 7t [place] [address] Care Team Providers Care Secret Service Agent Name Role Phone Wendy Pang MD Primary Care Pro vider Reason for Visit * Reason Comments Med Refill Encounter Details Date Type Department Care Team (Late st Contact Info) Description 10/26/2024 Refill [facility] MEDICINE 230 [place] [address] Patria Pappas ANP [address] [place] [address] Social History Tobacco Use Types Packs/Day Years [...] documented as of this encounter Care Teams Secret Service Agent Relationship Specialty Start Date End Date Wendy Pang MD [address] [place] [address] PCP - General Internal Medicine 02/23/23 documented as of this encounter
--- OUTSIDE RECORDS SUMMARY | 2025-06-17 09:39 | XMS_ITS | Encounter Summary ---
Author Organization [employer] Address 75 [facility] 7t [place] [address] Care Team Providers Care Timber Surveyor Name Role Phone Wendy Pang MD Primary Care Pro vider Reason for Visit * Reason Comments Med Refill Encounter Details Date Type Department Care Team (Late st Contact Info) Description 06/09/2025 Refill [facility] MEDICINE 230 [place] [address] Wendy Pang MD [address] [place] [address] Social History Tobacco Use Types Packs/Day Years [...] as of this encounter Care Teams Timber Surveyor Relationship Specialty Start Date End Date Wendy Pang MD [address] [place] [phone] PCP - General Internal Medicine 02/23/23 documented as of this encounter
--- OUTSIDE RECORDS SUMMARY | 2025-06-17 09:39 | XMS_ITS | Encounter Summary ---
Author Organization [employer] Address 75 [facility] 7[place] [address] Care Team Providers Care Cable Maintainer Name Role Phone Wendy Pang MD Primary Care Pro vider Reason for Visit * Reason Comments Med Refill Encounter Details Date Type Department Care Team (Late st Contact Info) Description 03/12/2025 Refill [facility] MEDICINE [address] [place] [address] Wendy Pang MD 230 [place] [address] Polyarthralgia Social History Tobacco Use Types Packs/Day [...] documented as of this encounter Care Teams Cable Maintainer Relationship Specialty Start Date End Date Wendy Pang MD [address] [place] [phone] PCP - General Internal Medicine 02/23/23 documented as of this encounter
--- OUTSIDE RECORDS SUMMARY | 2025-06-17 09:39 | XMS_ITS | Encounter Summary ---
Author Organization [employer] Address [address] [facility] [address] 7t [place] [address] Care Team Providers Care Compilation Clerk Name Role Phone Wendy Pang MD Primary Care Pro vider Encounter Details Date Type Department Care Team (Late st Contact Info) Description 09/29/2024 Orders Only [facility] MEDICINE [address] [place] [address] Provider, MD Mychal Social History Tobacco Use [...] the past 12 months, has t he [employer], gas, oil or water [employer] threatened to shut off services in your [...] documented as of this encounter Care Teams Compilation Clerk Relationship Specialty Start Date End Date Wendy Pang MD [address] [place] [phone] PCP - General Internal Medicine 02/23/23 documented as of this encounter
--- OUTSIDE RECORDS SUMMARY | 2025-06-17 09:39 | XMS_ITS | Patient Health Record ---
Author Organization [facility] Address [address] [place] [address] Care Team Providers Care Conservation Biology Professor Name Role Phone Michael Muller Primary Care [...] Status W/U Status Risk Notes Problem Cervicalgia (81265462) Cervicalgia (M54.2) Active confirmed Problem Morbid obesity (disorder) (077558520) Morbid (severe) obesity due to excess calories (E66.01) Active confirmed Problem Acquired hypothyroidism (214212079) Acquired hypothyroidism (E03.9) Active confirmed Problem Hyperlipidaemia (42561345) Hyperlipidemia, unspecified hyperlipidemia type (E78.5) Active confirmed Problem Type II diabetes mellitus without complication (304826492) Type 2 diabetes mellitus without complication, without long-term current use of insulin (E11.9) Active confirmed Problem Dysphagia (33904034) Dysphagia, unspecified type (R13.10) Active confirmed Problem Mixed anxiety and depressive disorder (531088523) Depression with anxiety (F41.8) Active confirmed Problem Sleep apnea (94195156) Sleep apnea, unspecified type (G47.30) Active confirmed Problem History of asthma (681294424) History of asthma (Z87.09) Active confirmed Problem Pruritic disorders (925073549) Ear itch (L29.9) Active confirmed Problem Sleep apnea (disorder) (73029678) History of sleep apnea (Z86.69) Active confirmed Problem Body mass index 40+ - severely obese (155040147) Body mass index [BMI] 40.0-44.9, adult (Z68.41) [...] End Date HUSKY A [address] [place], [place] [id number] Jocelin Talley Self - patient is the insured DENTAL Medicaid HP [address] [place] [address] [id number] Jocelin Talley Self - patient is the insured Medical (General) History Surgical History Surgery Date(Month/Year) c section x 3 bilat tubal Hospitalization History Reason Date(Month/Year) see surgical
== END 2025-06-17 08:47 | disposition home or self-care (01) ==
LOC: HO.CT 08:46
PROVIDERS: PCP Student in an Organized Health Care Education/Training Program; Visit Provider Student in an Organized Health Care Education/Training Program
DX: H93.A3 Pulsatile tinnitus, bilateral (principal)
CPT/HCPCS: 70481

== ENCOUNTER → 2025-06-17 08:48 | Outpatient (BNV) | payer MEDICAID, SELFPAY | PROVIDERS: PCP Student in an Organized Health Care Education/Training Program; Visit Provider Radiology Diagnostic Radiology | DX: H93.A9 Pulsatile tinnitus, unspecified ear (principal) | CPT/HCPCS: 70481 ==

== ENCOUNTER 2025-06-23 09:23 | Outpatient (AMB) | payer MEDICAID, SELFPAY ==
--- NOTE | 2025-06-23 09:28 | A.OFFVIS_ITS ---
Intake Visit Reasons: INJ- Left knee Durolane INJ Intake Note: Jocelin is a 55 year old female who presents today for an injection in her left knee, Durolane. She describes her left knee pain as sharp in nature. She has failed the last 3 months of conservative treatment. She wishes to hold off on surgery if at all possible. Allergies No Known Allergies Allergy (Verified 06/23/25 09:32) Medication List - Last Reconciled 06/23/25 by Cullen Hunter MD bismuth subsalicylate (Bismuth) 2 tabs PO QID 14 days cetirizine 10 mg PO QPM duloxetine (Cymbalta) 30 mg PO DAILY fluticasone propionate 50 mcg/actuation 2 sprays intranasal DAILY levothyroxine (Tirosint) 88 mcg PO QAM lidocaine 5% 1 patch topical DAILY losartan 100 mg PO DAILY omeprazole 40 mg PO BID 14 days peg 3350-electrolytes 236-22.74-6.74 -5.86 gram (Golytely) 240 mL PO Q10M 1 day pregabalin 150 mg PO tirzepatide (weight loss) (Zepbound) mg subcut QWEEK trazodone 50 mg PO BEDTIME PRN PFSH Medical History Pelvic pain Cervical high risk HPV (human papillomavirus) test positive Vaginal discharge Postop check Fibromyalgia Osteoarthritis Polyarthralgia Post traumatic stress disorder Constipation Cervical disc disease Generalized anxiety disorder Mixed hyperlipidemia Type 2 diabetes mellitus HTN (hypertension) Tachycardia Sleep apnea LGSIL on Pap smear of cervix Surgical History (Reviewed 01/22/25 @ 10:14 by Sam Shaw [facility]) Hx of tubal ligation Hx of section Social History Alcohol intake: never Patient Tobacco Use Status: Never used Tobacco Female Reproductive History Menstrual Age of Menarche: 12 Physical Exam Const Other: Well-nourished well-developed very friendly female awake alert and oriented x3 in no acute distress Extrem Other: Left knee examination shows a minimal effusion, palpable crepitus with range of motion, pain with range of motion, no instability Office Procedures AMB Joint Injection/Aspiration Joint Injection/Aspiration Primary Site: left knee Prep: site was prepped using aseptic technique Injected: 60 mg of (Durolane viscosupplementation), with 4 mL of and 1% plain lidocaine Procedure: The patient tolerated the procedure well Coding - Large joint Procedure code (CPT) selection complete Results Reviewed Results Reviewed: X-rays of the patient's left knee show joint space narrowing, subchondral sclerosis, no acute bony abnormalities Assessment & Plan Assessment & Plan (1) Osteoarthritis of left knee: Code(s): M17.12 - Unilateral primary osteoarthritis, left knee Category: Medical Plan Jocelin presents with left knee pain due to osteoarthritis. The risks and benefits of a left knee Durolane viscosupplementation injection were discussed at length with the patient. The patient wished to proceed. She tolerated the injection well. She will continue with her activity modifications. She will contact me prior to her follow-up appointment in 3 months should any questions or concerns arise. Feel free to call me at any time should questions regarding her orthopedic management arise. I spent 20 minutes in reviewing the patient's records and imaging studies, seeing the patient and documenting in the medical record. Orders: Orders AMB Joint Injection/Aspiration Today M17.12 - Unilateral primary osteoarthritis, left knee Coding Level of Care Code Est Pt Level 3 (10492) Complex EM visit Add On G2211 Diagnoses Osteoarthritis of left knee M17.12 CPT Codes Coding - Large joint: 39730 - Large joint ([id number])
--- OUTSIDE RECORDS SUMMARY | 2025-06-23 10:23 | XMS_ITS | Encounter Summary ---
Author Organization [employer] Address [address] [facility] [address] [address] Care Team Providers Care Ekg Monitor Name Role Phone Wendy Pang MD Primary Care Pro vider Reason for Visit * Reason Onset Date Comments Accamodation Letter 06/25/2024 Encounter Details Date Type Department Care Team ([facility] st Contact Info) Description 06/25/2024 Telephone [facility] [address] [place] [address] Wendy Pang MD [address] [place] [address] Accamodation Letter Social History Tobacco Use Types [...] any questions you can contact pt at [phone]. 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) documented in this encounter Plan of Treatment Not on file documented as of this encounter Visit Diagnoses Not on filedocumented in this encounter Additional Health Concerns Assessment Noted Time PHQ-9 Depression Total Score: 024 1:15 PM EDT documented as of this encounter Care Teams Ekg Monitor Relationship Specialty Start Date End Date Wendy Pang MD [address] [place] [id number] PCP - General Internal Medicine 02/23/23 documented as of this encounter
--- OUTSIDE RECORDS SUMMARY | 2025-06-23 10:23 | XMS_ITS | Encounter Summary ---
Author Organization [employer] Address [address] [facility] [address] [place] [address] Care Team Providers Care Electrical And Radio Aircraft Mechanic Name Role Phone Wendy Pang MD Primary Care Pro vider Encounter Details Date Type Department Care Team (Late st Contact Info) Description 06/17/2025 Results Follow-Up [facility] [address] [place] [address] Wendy Pang MD [address] [place] [address] CT TEMPORAL BONE WO CONTRAST Social History Tobacco Use Types Packs/Day Years [...] Encounter Note - Wendy Vance MD - 06/17/2025 10:38 PM EDT -CT temporal bone report is showing No major findings causing her tinnitus There is report of Small volume air-fluid levels in the left saphenous sinus. ---Should have been read as sphenoid sinus + Calcified plaques in the cavernous supraclinoid segments of the ICA pronounced on the left side. -CTA head/neck 11/2024 No evidence of major arterial vascular stenosis, occlusion, or dissection. -will call pt and inform findings and evaluation of possible sinusitis and if symptoms will prescribe treatment w inh steroids as well will offer ENT referral if ongoing pulsatile tinnitus -in regards reported Calcified plaques in the cavernous supraclinoid segments of the ICA pronouncedon the left side. --pt had this year a normal dedicated study w CTA head/neck so dont seen indication for repeating test again ,but if concerning symptoms are present will repeat image documented in this encounter Plan of Treatment Not on file documented as of this encounter Visit Diagnoses Not on filedocumented in this encounter Additional Health Concerns Assessment Noted Time PHQ-9 Depression Total Score: 17 025 9:06 AM EDT documented as of this encounter Care Teams Electrical And Radio Aircraft Mechanic Relationship Specialty Start Date End Date Wendy Pang MD [address] [place] [id number] PCP - General Internal Medicine 7/8/23 documented as of this encounter
--- OUTSIDE RECORDS SUMMARY | 2025-06-23 10:23 | XMS_ITS | Encounter Summary ---
Author Organization [employer] Address [address] [facility] [address] [place] [address] Care Team Providers Care Investment Banking Manager Name Role Phone Wendy Pang MD Primary Care Pro vider Reason for Visit * Reason Comments Med Refill Encounter Details Date Type Department Care Team (Late st Contact Info) Description 06/09/2025 Refill [facility] [address] [place] [address] Wendy Pang MD [address] [place] [address] Social History Tobacco Use Types Packs/Day Years [...] documented as of this encounter Care Teams Investment Banking Manager Relationship Specialty Start Date End Date Wendy Pang MD [address] [place] [id number] PCP - General Internal Medicine 02/23/23 documented as of this encounter
--- OUTSIDE RECORDS SUMMARY | 2025-06-23 10:23 | XMS_ITS | Clinical Summary ---
Author Organization [employer] Address [address] [place] [address] Care Team Providers Care Lead Accountant Name Role Phone Wendy Pang MD Primary [...] in the evening. 225 g 2 05/28/20 Active DULoxetine (Cymbalta) [address] capsuleIndicat [...] by mouth at bedtime. 90 tablet 06/07/20 25 Active ezetimibe (Zetia) 10 MG tablet Take 1 tablet (10 mg) by mouth Once per day. 90 tablet 06/07/20 25 Active montelukast (Singulair) 10 MG tablet Take 1 tablet (10 mg) by mouth Once per day. 90 tablet 06/18/20 Active ibuprofen 800 MG tablet 800 mg. Discontinued(Ot her) traZODone (Desyrel) 50 MG tabletIndicati ons:PTSD (post-traumati c stress disorder) Take 0.5 tablets (25 mg) by mouth at bedtime. May take 1 tablet (50 mg) by mouth at bedtime as needed. 20 tablet 11/17/19 25 025 Discontinued(Ot her) DULoxetine (Cymbalta) [address] [...] Once per day. 90 tablet 03/24/20 25 025 Discontinued(Re order (will not trigger notification to Pharmacy)) lidocaine (Lidoderm) 5 % patchIndicatio ns:Sprain of anterior talofibular ligament of left ankle, initial encounter Apply 1 patch topically Once per day. Remove & discard patch within 12 hours or as directed by MD. 30 patch 04/07/20 25 025 Discontinued(Re order (will not trigger [...] of migraines, was receiving a medication from [place], not sure of the name Will start [...] (Eric Ruff) and has a therapist in [place] (agency unknown). Pt will continue current treatment [...] (Eric Ruff) and has a therapist in [place] (agency unknown). Pt will continue current treatment [...] organization. Date Type Department Care Team Description 06/18/2025 Orders Only [address] [address] Wendy Pang MD 06/18/2025 Orders Only [address] [address] Wendy Pang MD Pulsatile tinnitus of both ears (Primary Dx) 06/17/2025 Results Follow-Up [address] TEMPORAL BONE WO CONTRAST 06/09/[address] [address] Wendy Pang MD Jimbo recall 06/09/2025 Refill [facility] [address] [place] [address] Wendy Pang MD 06/07/[address] [address] Wendy Pang MD 06/02/2025 Refill [facility] [address] [place], [place] [phone] Wendy Pang MD PTSD (post-traumatic stress disorder); Polyarthralgia 05/28/2025 1:15 PM EDT Office Visit [facility] [address] [place] [address] Wendy Pang MD Leg mass, left (Primary [...] Left foot pain 05/28/2025 Travel 05/27/2025 Telephone [facility] [address] [place] [phone] Wendy Pang MD chart prep 05/21/2025 Patient Outreach [facility] [address] [place] [address] Wendy Pang MD Pre-visit Planning (SDOH was already completed) 05/19/2025 Results Follow-Up [facility] [address] [place] [phone] Wendy Pang MD Comprehensive Metabolic Panel, Lipid Panel, Standard, Creatine Kinase, Total 05/19/2025 Orders Only [facility] External Provider, [facility] 05/19/2025 Travel 05/18/2025 Telephone [facility] [address] [place] [phone] Wendy Pang MD 05/11/[address] [address] Wendy Pang MD 04/12/2025 Results Follow-Up [address] [address] Wendy Martell MD XR Ankle 3+ Views Left 04/09/[address] [address] Wendy Pang MD 04/07/2025 11:00 AM EDT Office Visit [facility] [address] [place] [phone] Wendy Martell MD Sprain of anterior talofibular ligament of left ankle, initial encounter 04/07/2025 Travel 04/01/2025 Telephone [facility] [address] [place] [phone] Guadalupe Grimes, RN Results 03/30/2025 Telephone [facility] [address] [place] [address] Wendy Pang MD Durable Medical Equipment 03/25/2025 Orders Only [facility] [address] [place], [place] [phone] Wendy Pang MD 03/25/2025 Orders Only [facility] [address] [place], [place] [phone] Mychal Raymond MD 03/24/2025 Orders Only [facility] [address] [place], [place] [phone] Wendy Pang MD Mixed hyperlipidemia (Primary Dx) 03/24/2025 Orders Only [facility] [address] [place], [place] [phone] Wendy Pang MD from Last 3 Months Immunizations Immunization [...] 19+ 3-dose series) 03/22/2025 02/22/2025 COVID-19 Vaccine ( - season) 2025 Depression Monitoring 05/22/2025 11/20/2024, 025 Diabetes: Urine Protein Screening 06/12/2025 06/12/2024 Diabetes: Hemoglobin A1C 09/18/2025 025, 06/12/2024, 12/30/2023 Alcohol/Substance Use Screening 11/20/2025 11/20/2024 Disability Screening 11/20/2025 11/20/2024 Cervical Cancer Screening 01/04/2026 HPV/Cotest 01/04/2026 01/09/2024, 12/18, 12/12/2022 Pap Smear 01/04/2026 01/04/2025, 12/18, 01/08/2024, Additional history exists SDOH Screening 01/13/2026 01/13/2025 Mammogram 03/04/2026 03/04/2025, 02/16, 01/21/2023, Additional history exists Lipid Panel 05/19/2026 05/19/2025, 06/0 01/2025, 06/12/2024 Tobacco Screening 05/28/2026 05/28/2025 Eye Exam 12/01/2026 12/01/2024, 11/17, 12/01/2024, Additional [...] Name Priority Date/Time Associated Diagnosis Comments CT TEMPORAL BONE WO CONTRAST Routine 06/17/2025 9:16 AM EDT Pulsatile tinnitus of both ears XR KNEE 3 VIEWS LEFT Routine 05/20/2025 10:58 AM EDT XR CERVICAL SPINE 4V Routine 05/19/2025 9:02 AM EDT CREATINE KINASE, TOTAL Routine 05/19/2025 8:54 AM EDT Mixed hyperlipidemia LIPID PANEL, STANDARD Routine 05/19/2025 8:54 AM EDT Mixed hyperlipidemia COMPREHENSIVE METABOLIC PANEL Routine 05/19/2025 8:54 AM EDT Mixed hyperlipidemia AMB REFERRAL TO SLEEP MEDICINE Routine 05/12/2025 Loud snoring XR ANKLE 3+ VIEWS LEFT Routine 04/08/2025 9:08 AM EDT Sprain of anterior talofibular ligament of left ankle, initial encounter NERVE CONDUCTION TEST Routine 04/01/2025 Elevated CPK Neuropathy POCT GLYCATED HEMOGLOBIN, TOTAL Routine 03/18/2025 11:54 [...] Relevant to Health Maintenance Results * CT TEMPORAL BONE WO CONTRAST (06/17/2025 9:16 AM EDT) Anatomical Region Laterality Modality Body, Abdomen Computed Tomogra phy 06/17/2025 9:16 AM EDT Narrative 06/17/2025 10:24 AM EDT [place] [address] [address] Scan Report Signed Patient: Jocelin Auguste R#: [id number] : 1970 Acct:[id number] Age/Sex: 55 / F ADM Date: 06/17/25 Loc: HO.CT Attending Dr: Wendy Vance MD Ordering Physician: Wendy Pang MD Date of Service: 06/17/25 Procedure(s): CT mastoid Accession Number(s): [id number] cc: Wendy Pang MD Report Number: [id number]: Total DLP = 148.00 mGy-cm Reason for Exam: CHRONIC PULSATILE TINNITUS EXAMINATION: CT TEMPORAL BONES. CLINICAL INFORMATION: Chronic pulsatile tinnitus COMPARISON: Correlated to CT angiogram head neck dated November 23, 2024. TECHNIQUE: Contiguous axial images through the temporal bones with bone algorithm. Sagittal and coronal reformatted images acquired. This CT examination was performed using dose optimization techniques as appropriate, variously including the following: *Automated exposure control *Adjustment of mA and/or kV according to patient size (this includes techniques or standardized protocols for targeted exams where dose is matched to indication/reason for exam; i.e. extremities or head) *Use of iterative reconstruction technique DLP: 148 mGy-cm FINDINGS: RIGHT PETROUS BONE: Cartilage and osseous segments external auditory canal are patent. Tympanic membrane is not thickened. Tympanic cavity is well pneumatized and aerated. Sinus tympani, is aerated. Ossicles are intact with normal alignment. Tegmen tympani is intact. Scutum is intact. Oval window and right window are aerated. Aditus at antrum, mastoid antrum and mastoid air cells are well pneumatized and aerated. Fallopian canal: labyrinthic , geniculate, tympanic and mastoid segments are intact. Cochlear, vestibule and semicircular canals are intact. Internal auditory canal is intact. Vestibular and cochlear aqueducts are not enlarged. Jugular foramen is intact and normal anatomic position. Carotid canal is intact. Temporal mandibular joint is intact. LEFT PETROUS BONE: Cartilage and osseous segments external auditory canal are patent. Tympanic membrane is not thickened. Tympanic cavity is well pneumatized and aerated. Sinus tympani, is aerated. Ossicles are intact with normal alignment. Tegmen tympani is intact. Scutum is intact. Oval window and right window are aerated. Aditus at antrum, mastoid antrum and mastoid air cells are well pneumatized and aerated. Fallopian canal: labyrinthic , geniculate, tympanic and mastoid segments are intact. Cochlear, vestibule and semicircular canals are intact. Internal auditory canal is intact. Vestibular and cochlear aqueducts are not enlarged. Jugular foramen is intact and normal anatomic position. Carotid canal is intact. Temporal mandibular joint is intact. Ancillary findings: Small volume air-fluid levels in the left saphenous sinus. Calcified plaques in the cavernous supraclinoid segments of the ICA pronounced on the left side. CT/CT mastoid IMPRESSION: No high riding internal jugular bulb. Normal temporal bones. Electronically signed by: Jero Nickerson MD 06/17/2025 10:21 AM EDT Dictated By: Jero Avilez MD Signed By: <Electronically signed by Jero Grimes MD in OV> 06/17/25 1021 DD/ 0916 TD/TT: 06/17/25 0943 Materials Planning Manager: Procedure Note Donotuseinterpreter, Image - 06/17/[address] [address] [address] Scan Report Signed Patient: Jo Auguste R#: [id number] : 1970Acct:[id number] Age/Sex: 55 / FADM Date: 06/17/25 Loc: HO.CT Attending Dr: Wendy Vance MD Ordering Physician: Wendy Pang MD Date of Service: 06/17/25 Procedure(s): CT mastoid Accession Number(s): [id number] cc: Wendy Pang MD Report Number: [id number]: Total DLP = 148.00 mGy-cm Reason for Exam: CHRONIC PULSATILE TINNITUS EXAMINATION: CT TEMPORAL BONES. CLINICAL INFORMATION: Chronic pulsatile tinnitus COMPARISON: Correlated to CT angiogram head neck dated November 23, 2024. TECHNIQUE: Contiguous axial images through the temporal bones with bone algorithm. Sagittal and coronal reformatted images acquired. This CT examination was performed using dose optimization techniques as appropriate, variously including the following: *Automated exposure control *Adjustment of mA and/or kV according to patient size (this includes techniques or standardized protocols for targeted exams where dose is matched to indication/reason for exam; i.e. extremities or head) *Use of iterative reconstruction technique DLP: 148 mGy-cm FINDINGS: RIGHT PETROUS BONE: Cartilage and osseous segments external auditory canal are patent. Tympanic membrane is not thickened. Tympanic cavity is well pneumatized and aerated. Sinus tympani, is aerated. Ossicles are intact with normal alignment. Tegmen tympani is intact. Scutum is intact. Oval window and right window are aerated. Aditus at antrum, mastoid antrum and mastoid air cells are well pneumatized and aerated. Fallopian canal: labyrinthic , geniculate, tympanic and mastoid segments are intact. Cochlear, vestibule and semicircular canals are intact. Internal auditory canal is intact. Vestibular and cochlear aqueducts are not enlarged. Jugular foramen is intact and normal anatomic position. Carotid canal is intact. Temporal mandibular joint is intact. LEFT PETROUS BONE: Cartilage and osseous segments external auditory canal are patent. Tympanic membrane is not thickened. Tympanic cavity is well pneumatized and aerated. Sinus tympani, is aerated. Ossicles are intact with normal alignment. Tegmen tympani is intact. Scutum is intact. Oval window and right window are aerated. Aditus at antrum, mastoid antrum and mastoid air cells are well pneumatized and aerated. Fallopian canal: labyrinthic , geniculate, tympanic and mastoid segments are intact. Cochlear, vestibule and semicircular canals are intact. Internal auditory canal is intact. Vestibular and cochlear aqueducts are not enlarged. Jugular foramen is intact and normal anatomic position. Carotid canal is intact. Temporal mandibular joint is intact. Ancillary findings: Small volume air-fluid levels in the left saphenous sinus. Calcified plaques in the cavernous supraclinoid segments of the ICA pronounced on the left side. CT/CT mastoid IMPRESSION: No high riding internal jugular bulb. Normal temporal bones. Electronically signed by: Jero Nickerson MD 06/17/2025 10:21 AM EDT Dictated By: Jero Avilez MD Signed By: <Electronically signed by Jero Grimes MDin OV> 06/17/25 1021 DD/ 0916 TD/TT: 06/17/25 0943 Materials Planning Manager: Wendy Vance MD IMG CT PROCEDURES Edited Result - Final * XR Knee 3 Views Left (05/20/2025 10:58 AM EDT) Anatomical Region Laterality Modality Lower Extremities, Knee Left [facility] 05/20/2025 10:5 8 AM EDT Narrative 05/20/2025 11:10 AM EDT [facility] [address] [place] [address] Drive [address] [place] [address] XRay Report Signed Patient: Jocelin Auguste R#: [id number] : 1970 Acct:[id number] Age/Sex: 54 / F ADM Date: 05/20/25 Loc: GANESH Attending Dr: Cullen Hunter MD Ordering Physician: Cullen Hunter MD Date of Service: 05/20/25 Procedure(s): XR knee LT 3V Accession Number(s): [id number] cc: Wendy Pang MD; Cullen Hunter MD [...] 05/20/25 1107 DD/ 1058 TD/TT: 05/20/25 1100 Materials Planning Manager: Procedure Note Donotuseinterpreter, Image - 05/20/2025 [facility] [address] [place] [address] Drive [address] [place] [address] XRay Report Signed Patient: Jo Auguste R#: [id number] : 1970Acct:[id number] Age/Sex: 54 / FADM Date: 05/20/25 Loc: GANESH Attending Dr: Cullen Hunter MD Ordering Physician: Cullen Hunter MD Date of Service: 05/20/25 Procedure(s): XR knee LT 3V Accession Number(s): [id number] cc: Wendy Pang MD; Cullen Hunter MD [...] 05/20/25 1107 DD/ 1058 TD/TT: 05/20/25 1100 Materials Planning Manager: [facility] External Provider IMG XR PROCEDURES Edited Result - Final * XR CERVICAL SPINE 4V (05/19/2025 9:02 AM EDT) Anatomical Region Laterality Modality Abdomen Radiographic Jeanine ging 05/19/2025 9:02 AM EDT Narrative 05/19/2025 9:42 AM EDT [address] [address] XRay Report Signed Patient: Jocelin Auguste R#: [id number] : 1970 Acct:[id number] Age/Sex: 54 / F ADM Date: 05/19/25 Loc: HO.HHCX Attending Dr: Cullen Hunter MD Ordering Physician: Cullen Hunter MD Date of Service: 05/19/25 Procedure(s): XR cervical spine 4V Accession Number(s): [id number] cc: Wendy Pang MD; Cullen Hunter MD [...] by Brice Pate MD in OV> 05/19/25 09 DD/ 09 TD/TT: 05/19/25 0903 Materials Planning Manager: Procedure Note Donotuseinterpreter, Image - 05/19/[address] [address] XRay Report Signed Patient: Jo Auguste R#: [id number] : 1970Acct:[id number] Age/Sex: 54 / FADM Date: 05/19/25 Loc: HO.HHCX Attending Dr: Cullen Hunter MD Ordering Physician: Cullen Hunter MD Date of Service: 05/19/25 Procedure(s): XR cervical spine 4V Accession Number(s): [id number] cc: Wendy Pang MD; Cullen Hunter MD [...] in OV> 05/19/25938 DD/ 1 TD/TT: 05/19/25902 Materials Planning Manager: [facility] External Provider IMG XR PROCEDURES Final Result * Creatine Kinase, Total (05/19/2025 8:54 AM EDT) Creatine Kinase Total 110 26 - 140 U/L [facility] Blood Venous blood specimen / Unknown 05/19/2025 8:54 AM EDT 05/19/2025 11:04 AM EDT Wendy Vance MD LAB BLOOD ORDERAB LES Final Result [facility] [address] [place] [phone] * (ABNORMAL) Lipid Panel, Standard (05/19/2025 8:54 AM EDT) Triglycerides 127 <150 mg/dL [facility] Comment:Desirable Triglyceri de: less than 150 mg/dLBorderline High Triglyceride 150-199 mg/dLHigh Triglyceride: 200-499 mg/dLVery High Triglyceride: greater than or equal to 5OO mg/dL Cholesterol 183 <200 mg/dL [facility] Comment:Desirable Cholestero l: less than 200 mg/dLBorderline High Cholesterol: 200-239 mg/dLHigh Cholesterol: greater than 239 mg/dL LDL Cholesterol Calculated 118(H) <100 mg/dL [facility] Comment:Desirable LDL: less than 100 mg/dLNear Optimal/Above Optimal LDL: 110- 129 mg/dLBorderline High LDL: 130-159 mg/dLHigh LDL: 160-189 mg/dLVery High LDL: greater than or equal to 190 mg/dL HDL Cholesterol 40(L) >40 mg/dL [facility] Comment:Desirable HDL: great er than 40 mg/dL Note: This HDL assay may give artificially low results in patients with liver disease. Blood Venous blood specimen / Unknown 05/19/2025 8:54 AM EDT 05/19/2025 11:04 AM EDT us Wendy Vance MD LAB BLOOD ORDERAB LES Final Result [facility] [address] [place] [phone] * (ABNORMAL) Comprehensive Metabolic Panel (05/19/2025 8:54 AM EDT) Sodium 144 135 - 145 mmol/L [facility] Potassium 3.8 3.3 - 5.1 mmol/L [facility] Chloride 109(H) 96 - 108 mmol/L [facility] Carbon Dioxide 27 22 - 29 mmol/L [facility] Anion Gap 12 12 - 20 [facility] Urea Nitrogen (BUN) 21(H) 9 - 16 mg/dL [facility] Creatinine, Serum 0.66 0.5 - 1.4 mg/dL [facility] Estimated Glomerular Filt Rate >60 [facility] Comment:Chronic Kidney Disea se: Estimated GFR < 60 mL/min/1.47f1Hxcfie Kidney Disease: Estimated GFR < 15 mL/min/1.73m2 Glucose 85 60 - 115 mg/dL [facility] Calcium 9.4 8.4 - 10.2 mg/dL [facility] Bilirubin, Total 0.2 0.0 - 1.0 mg/dL [facility] Aspartate Amino Transferase 33(H) 5 - 31 U/L [facility] Alanine Aminotransferase 34(H) 0 - 31 U/L [facility] Total Protein 7.9 6.5 - 8.0 g/dL [facility] Albumin Level 4.5 3.5 - 5.0 g/dL [facility] Alkaline Phosphatase 69 39 - 117 U/L [facility] Blood Venous blood specimen / Unknown 05/19/2025 8:54 AM EDT 05/19/2025 11:04 AM EDT us Wendy Vance MD LAB BLOOD ORDERAB LES Final Result Performing Organization Address City/State/[facility] Co de Phone Number [facility] [address] [place] [phone] * Referral to Sleep Medicine (05/12/2025) us Wendy Vance MD OUTPATIENT REFERR AL ORDERABLES Final Result * XR Ankle 3+ Views Left (04/08/2025 9:08 AM EDT) Anatomical Region Laterality Modality Lower Extremities, Ankle Left Radiogr [facility] 04/08/2025 9:08 AM EDT Narrative 04/08/2025 9:26 AM EDT [facility] [address] [place] [address] XRay Report Signed Patient: Jocelin Auguste Carlos#: [id number] : 1970 Acct:[id number] Age/Sex: 54 / F ADM Date: 04/08/25 Loc: .HHCX Attending Dr: Wendy Claudio MD Ordering Physician: Wendy Martell MD Date of Service: 04/08/25 Procedure(s): XR ankle LT min 3V Accession Number(s): [id number] cc: Wendy Martell MD; Wendy Pang MD [...] Jero Grimes MD in OV> 04/08/25922 DD/ 0908 TD/TT: 04/08/25 0914 Materials Planning Manager: Procedure Note Donotuseinterpreter, Image - 04/08/2025 [place] [address] XRay Report Signed Patient: Jo Auguste R#: [id number] : 1970Acct:[id number] Age/Sex: 54 / FADM Date: 04/08/25 Loc: HO.HHCX Attending Dr: Wendy Claudio MD Ordering Physician: Wendy Martell MD Date of Service: 04/08/25 Procedure(s): XR ankle LT min 3V Accession Number(s): [id number] cc: Wendy Martell MD; Wendy Pang MD [...] <Electronically signed by Jero Grimes MDin OV> 04/08/2523 DD/ 0908 TD/TT: 04/08/25 0914 Materials Planning Manager: Wendy Claudio MD IMG XR PROCEDURES Fin al Result * Nerve conduction test (04/01/2025) Wendy Vance MD NEUROLOGY ORDERAB LES Final Result * POCT HGB A1C (03/18/2025 [...] Narrative 03/15/2025 10:34 AM EDT [facility] [address] [place], [place] [address] Mammography Report Signed Patient: Jocelin Auguste R#: [id number] : 1970 Acct:[id number] Age/Sex: 54 / F ADM Date: 03/04/25 Loc: HO.MAMMO Attending Dr: Wendy Vance MD Ordering Physician: Wendy Pang MD Re sults: 1Negative Date of Service: 03/04/25 Follow Up: 1 Year From Orig inal Mammogram Procedure(s): MM tomosynthesis screening BI Accession Number(s): [id number] cc: Wendy Pang MD EXAMINATION: MM SCREENING [...] 03/15/25 1031 DD/ 0926 TD/TT: 03/04/25 0949 Materials Planning Manager: Procedure Note Donotuseinterpreter, Image - 03/15/2025 [facility] [address] [place] [address] Mammography Report Signed Patient: Jo Auguste R#: [id number] : 1970Acct:[id number] Age/Sex: 54 / FADM Date: 03/04/25 Loc: HO.MAMMO Attending Dr: Wendy Vance MD Ordering Physician: Wendy Pang sults: 1Negative Date of Service: 03/04/25Follow Up: 1 Year From Orig inal Mammogram Procedure(s): MM tomosynthesis screening BI Accession Number(s): [id number] cc: Wendy Pang MD EXAMINATION: MM SCREENING [...] 03/15/25 1031 DD/ 0926 TD/TT: 03/04/25 0949 Materials Planning Manager: us Wendy Vance MD IMG BI PROCEDURES Final Result * HM PAP/HPV (01/04/2025 9:22 AM EDT) Only the most recent of2 resultswithin the time period is included. Historical Provider HEALTH MAINTENANCE Final Result * Albumin, Random Urine W/Creatinine (06/12/2024 11:40 AM EDT) Creatinine, Urine 195.62 mg/dL [facility] Microalbumin Urine 41.0 mg/L [facility] Microalbum Creatinine Ratio Ur 20.9 <30 ug/mg cr [facility] Comment:Albumin/Creatinine R atio Reference Ranges: Normal: < 30 ug/mg creatinine Microalbuminuria: 30 - 300 ug/mg creatinineClinical Albuminuria: > 300 ug/mg creatinine Urine (Urine, Random) 06/12/2024 11:40 AM EDT 06/12/2024 1:08 PM EDT Wendy Vance MD LAB URINE ORDERAB LES Final Result Performing Organization Address [facility] Co de Phone Number [facility] [address] [place] [phone] * Hepatitis C Antibody with Reflex to HCV, RNA, Quantitative, Real-Time PCR (06/12/2024 11:39 AM EDT) Hepatitis C Antibody Nonreactive Nonreactive [facility] Comment:Antibodies to HCV no t detected; does not exclude early acuteHCV infection. Blood Venous blood specimen / Unknown 06/12/2024 11:39 AM EDT 06/12/2024 1:19 PM EDT Wendy Vance MD LAB BLOOD ORDERAB LES Final Result Performing Organization Address City/[facility]/ZIP Co de Phone Number [facility] [address] [place] [phone] * HIV-1/2 Antigen and Antibodies, Fourth Generation, with Reflexes (06/12/2024 11:39 AM EDT) HIV AB/AG Nonreactive Nonreactive [facility] Comment:HIV-1 p24 Ag and/or HIV-1/HIV-2 Ab not detected.A test result that is nonreactive does not exclude thepossibility of exposure to or infection with HIV-1 and/orHIV-2. Nonreactive results in this assay for individualswith prior exposure to HIV-1 and/or HIV-2 may be due toantigen and antibody levels that are below the limit ofdetection of this assay.The [employer] HIV Ag/Ab Combo assay result andsupplemental assay results should be interpreted inconjunction with the patient's clinical presentation,history and other laboratory results. If the results areinconsistent with clinical evidence, additional testing issuggested to confirm the result. Blood Venous blood specimen / Unknown 06/12/2024 11:39 AM EDT 06/12/2024 1:19 PM EDT us Wendy Vance MD LAB BLOOD ORDERAB LES Final Result [facility] [address] [place] [phone] * Colposcopy (02/11/2024 9:20 AM EDT) us Historical Provider IN CLINIC/BEDSIDE ORDERAB LES Edited Result - Final from Last 3 Months or Most Recently Relevant to Health Maintenance Insurance [place] [address] C3 Care Teams Lead Accountant Relationship Specialty Start Date End Date Wendy Pang MD [address] [place] [address] PCP - General Internal Medicine 02/23/23
--- OUTSIDE RECORDS SUMMARY | 2025-06-23 10:23 | XMS_ITS | Encounter Summary ---
Author Organization [employer] Address [address] [facility] 7t [place] [address] Care Team Providers Care Account Information Clerk Name Role Phone Wendy Pang MD Primary Care Pro vider Reason for Visit * Reason Onset Date Comments Durable Medical Equipment 06/23/2024 Prior Authorization 06/23/2024 Encounter Details Date Type Department Care Team (Late st Contact Info) Description 06/23/2024 Telephone [facility] MEDICINE 230 [place] [address] Wendy Pang MD 230 [place] [address] Durable Medical Equipment; Prior Authorization Social History [...] 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 Please contract pt at [phone]. (Indonesian Speaker) documented in this encounter Plan of Treatment Not on file documented as of this encounter Visit Diagnoses Not on filedocumented in this encounter Additional Health Concerns Assessment Noted Time PHQ-9 Depression Total Score: 10 024 1:15 PM EDT documented as of this encounter Care Teams Account Information Clerk Relationship Specialty Start Date End Date Wendy Pang MD [address] [place] [address] PCP - General Internal Medicine 02/23/23 documented as of this encounter
--- OUTSIDE RECORDS SUMMARY | 2025-06-23 10:23 | XMS_ITS | Encounter Summary ---
Author Organization [employer] Address [address] [facility] 7t [place] [address] Care Team Providers Care Jewelry Mechanic Name Role Phone Wendy Pang MD Primary Care Pro vider Reason for Visit * Reason Onset Date Comments Nurse Triage 03/11/2023 Encounter Details Date Type Department Care Team (Late st Contact Info) Description 03/11/2023 Telephone [facility] MEDICINE 230 [place] [address] Wendy Pang MD 230 [place] [address] Nurse Triage Social History Tobacco Use Types [...] 03/14/2023 11:06 AM EDT Triage call with Vol[place] Potato Inspector [place] [id number]. Pt was triaged 03/11/23 and advised to come to [facility] to be seen but, didn't go. Pt reports doesn't want to go to [facility] because, I have too many issues Carol only want my doctor . Pt is offered 300pm apt with Dr. Villegas today but, reports no transportation. Advised Pt has 04/18/23 apt for transfer to Dr. Jama Vance and Pt reports my friend said thereare many apts open with Dr. Yun earlier than that and I want to go 03/25. . Psychologist Developmental looked at schedule for that day and no available apts for transfer Pt seen. Phone connection very poor. Call was dropped 3 times during this conversation. Advised Pt to come to [facility] today or tomorrow. Hours given opentill [...] still has severe pain. Please contact at [phone] * Telephone Encounter - Beryl Schuster RN - 03/11/2023 1:25 PM EDT Triage call with Vollee Potato Inspector [place] [id number] Pt reports shoulder, neck, middle to low back pain. Pt reports left foot almost gave out and Pt almost fell so Pt has someone walk with her all the time. Pt has suffered loss of mother and other family problems causing the increase of the pain. Pt is not finding effective pain relief and wants to see provider. Advised to come to [facility] today to be seen and Pt [...] accepted this outcome Please contact pt at [phone] Montserratian Speaker documented in this encounter Plan of Treatment Not on file documented as of this encounter Visit Diagnoses Not on filedocumented in this encounter Care Teams Jewelry Mechanic Relationship Specialty Start Date End Date Wendy Pang MD [address] [place] [address] PCP - General Internal Medicine 02/23/23 documented as of this encounter
--- OUTSIDE RECORDS SUMMARY | 2025-06-23 10:23 | XMS_ITS | Encounter Summary ---
Author Organization [employer] Address [address] [facility] [address] 7t [place] [address] Care Team Providers Care Rand Maker Name Role Phone Wendy Pang MD Primary Care Pro vider Reason for Visit * Reason Comments Med Refill Encounter Details Date Type Department Care Team (Late st Contact Info) Description 10/26/2024 Refill [facility] MEDICINE 230 [place] [address] Patria Pappas ANP 230 [place] [address] Social History Tobacco Use Types Packs/Day Years [...] documented as of this encounter Care Teams Rand Maker Relationship Specialty Start Date End Date Wendy Pang MD [address] [place] [address] PCP - General Internal Medicine 02/23/23 documented as of this encounter
--- OUTSIDE RECORDS SUMMARY | 2025-06-23 10:23 | XMS_ITS | Encounter Summary ---
Author Organization [employer] Address [address] [place] [address] Care Team Providers Care Manager Oncology Name Role Phone Wendy Pang MD Primary Care Pro vider Reason for Referral * Consultation (Routine) - Closed Specialty Diagnoses / Procedures Referred By Contac t Referred To Contact Otolaryngology Diagnoses Pulsatile tinnitus of both ears Wendy Pang MD 230 [place] [address] Phone: tel: fax: [facility] [address] Phone: tel: fax: Referral ID Status Reason Start Date Expiration Date V isits Requested Visits Authorized [id number] Closed Specialty Services Required 06/18/2025 06/18/2026 1 1 Encounter Details Date Type Department Care Team (Late st Contact Info) Description 06/18/2025 Orders Only [facility] MEDICINE 230 [place], [place] [phone] Wendy Pang MD 230 [place], [place] [phone] Pulsatile tinnitus of both ears (Primary Dx) Social History Tobacco Use Types [...] as of this encounter Plan of Treatment Scheduled Referrals Name Type Priority Associated Diagnoses Orde r Schedule Referral to ENT Outpatient Referral Routine Pulsatile tinnitus of both ears Expected: 06/18/2025 (Approximate), Expires: 06/18/2026 documented as of this encounter Visit Diagnoses Diagnosis Pulsatile tinnitus of both ears- Primary documented in this encounter Additional Health Concerns Assessment Noted Time PHQ-9 Depression Total Score: 17 025 9:06 AM EDT documented as of this encounter Care Teams Manager Oncology Relationship Specialty Start Date End Date Wendy Pang MD 230 [place] [address] PCP - General Internal Medicine 02/23/23 documented as of this encounter
--- OUTSIDE RECORDS SUMMARY | 2025-06-23 10:23 | XMS_ITS | Encounter Summary ---
Author Organization [employer] Address [address] [facility] [address] 7t [place] [address] Care Team Providers Care Powder And Primer Canning Leader Name Role Phone Wendy Pang MD Primary Care Pro vider Encounter Details Date Type Department Care Team (Late st Contact Info) Description 03/25/2025 Orders Only [facility] [address] [place], [place] [phone] Provider, MD Mychal Social History Tobacco Use [...] documented as of this encounter Care Teams Powder And Primer Canning Leader Relationship Specialty Start Date End Date Wendy Pang MD [address] [place] [address] PCP - General Internal Medicine 02/23/23 documented as of this encounter
--- OUTSIDE RECORDS SUMMARY | 2025-06-23 10:23 | XMS_ITS | Patient Health Record ---
Author Organization [facility] Address [address] [place] [address] Care Team Providers Care Hangar Attendant Name Role Phone Michael Muller Primary Care Provider [phone] Allergies No Known Allergies Reason For Referral [...] Status W/U Status Risk Notes Problem Cervicalgia (20198662) Cervicalgia (M54.2) Active confirmed Problem Morbid obesity (disorder) (364729018) Morbid (severe) obesity due to excess calories (E66.01) Active confirmed Problem Acquired hypothyroidism (164850961) Acquired hypothyroidism (E03.9) Active confirmed Problem Hyperlipidaemia (35885785) Hyperlipidemia, unspecified hyperlipidemia type (E78.5) Active confirmed Problem Type II diabetes mellitus without complication (564740262) Type 2 diabetes mellitus without complication, without long-term current use of insulin (E11.9) Active confirmed Problem Dysphagia (86956575) Dysphagia, unspecified type (R13.10) Active confirmed Problem Mixed anxiety and depressive disorder (236947523) Depression with anxiety (F41.8) Active confirmed Problem Sleep apnea (57664269) Sleep apnea, unspecified type (G47.30) Active confirmed Problem History of asthma (875205623) History of asthma (Z87.09) Active confirmed Problem Pruritic disorders (029716739) Ear itch (L29.9) Active confirmed Problem Sleep apnea (disorder) (50729373) History of sleep apnea (Z86.69) Active confirmed Problem Body mass index 40+ - severely obese (361668639) Body mass index [BMI] 40.0-44.9, adult (Z68.41) [...] End Date HUSKY A [address] [place], [place] [id number] Jocelin Talley Self - patient is the insured DENTAL Medicaid HP [address] [place] [address] [id number] Jocelin Talley Self - patient is the insured Medical (General) History Surgical History Surgery Date(Month/Year) c section x 3 bilat tubal Hospitalization History Reason Date(Month/Year) see surgical
--- OUTSIDE RECORDS SUMMARY | 2025-06-23 10:23 | XMS_ITS | Encounter Summary ---
Author Organization [employer] Address [address] [facility] 7t [place] [address] Care Team Providers Care Database Tester Name Role Phone Wendy Pang MD Primary Care Pro vider Encounter Details Date Type Department Care Team (Late st Contact Info) Description 03/25/2025 Orders Only [facility] MEDICINE 230 [place], [place] [phone] Wendy Pang MD 230 [place] [address] Social History Tobacco Use Types Packs/Day Years [...] t he electric, gas, oil or water [employer] threatened to shut off services in your [...] documented as of this encounter Care Teams Database Tester Relationship Specialty Start Date End Date Wendy Pang MD [address] [place] [address] PCP - General Internal Medicine 02/23/23 documented as of this encounter
--- OUTSIDE RECORDS SUMMARY | 2025-06-23 10:23 | XMS_ITS | Encounter Summary ---
Author Organization [employer] Address [address] [facility] 7t [place] [address] Care Team Providers Care Argon Tester Name Role Phone Wendy Pang MD Primary Care Pro vider Reason for Visit * Reason Comments Med Refill Encounter Details Date Type Department Care Team (Late st Contact Info) Description 01/07/2025 Refill [facility] MEDICINE 230 [place] [address] Wendy Pang MD 230 [place] [address] Type 2 diabetes mellitus without complication, without long-term current use of insulin ([facility]) Social History Tobacco Use Types Packs/Day [...] documented as of this encounter Care Teams Argon Tester Relationship Specialty Start Date End Date Wendy Pang MD [address] [place] [address] PCP - General Internal Medicine 02/23/23 documented as of this encounter
--- OUTSIDE RECORDS SUMMARY | 2025-06-23 10:23 | XMS_ITS | Encounter Summary ---
Author Organization [employer] Address [address] [facility] 7t [place] [address] Care Team Providers Care Network Technology Instructor Name Role Phone Wendy Pang MD Primary Care Pro vider Reason for Visit * Reason Comments Med Refill Encounter Details Date Type Department Care Team (Late st Contact Info) Description 01/20/2025 Refill [facility] MEDICINE 230 [place] [address] Wendy Pang MD 230 [place] [address] Social History Tobacco Use Types Packs/Day Years [...] documented as of this encounter Care Teams Network Technology Instructor Relationship Specialty Start Date End Date Wendy Pang MD [address] [place] [address] PCP - General Internal Medicine 02/23/23 documented as of this encounter
--- OUTSIDE RECORDS SUMMARY | 2025-06-23 10:23 | XMS_ITS | Encounter Summary ---
Author Organization [employer] Address [address] [facility] 7t [place] [address] Care Team Providers Care Certified Hyperbaric Technologist Name Role Phone Wendy Pang MD Primary Care Pro vider Encounter Details Date Type Department Care Team (Latest Contact Info) Description 05/19/2025 Results Follow-Up [facility] MEDICINE 230 [place] [address] Wendy Pang MD [address] [place] [address] Comprehensive Metabolic Panel, Lipid Panel, Standard, Creatine [...] as of this encounter Care Teams Certified Hyperbaric Technologist Relationship Specialty Start Date End Date Wendy Pang MD [address] [place] [address] PCP - General Internal Medicine 02/23/23 documented as of this encounter
--- OUTSIDE RECORDS SUMMARY | 2025-06-23 10:23 | XMS_ITS | Encounter Summary ---
Author Organization [employer] Address [address] [facility] [address] [place] [address] Care Team Providers Care Crop Duster Name Role Phone Wendy Pang MD Primary Care Pro vider Reason for Visit * Reason Comments Med Refill Encounter Details Date Type Department Care Team (Late st Contact Info) Description 03/15/2025 Refill [facility] MEDICINE 230 [place] [address] Wendy Pang MD 230 [place] [address] Polyarthralgia Social History Tobacco Use Types Packs/Day [...] documented as of this encounter Care Teams Crop Duster Relationship Specialty Start Date End Date Wendy Pang MD [address] [place] [address] PCP - General Internal Medicine 02/23/23 documented as of this encounter
--- OUTSIDE RECORDS SUMMARY | 2025-06-23 10:23 | XMS_ITS | Encounter Summary ---
Author Organization [employer] Address [address] [facility] 7t [place] [address] Care Team Providers Care Switch Engineer Name Role Phone Wendy Pang MD Primary Care Pro vider Encounter Details Date Type Department Care Team (Late st Contact Info) Description 06/18/2025 Orders Only [facility] MEDICINE 230 [place], [place] [phone] Wendy Pang MD 230 [place] [address] Social History Tobacco Use Types Packs/Day Years [...] t he electric, gas, oil or water [employer] threatened to shut off services in your [...] documented as of this encounter Care Teams Switch Engineer Relationship Specialty Start Date End Date Wendy Pang MD [address] [place] [address] PCP - General Internal Medicine 02/23/23 documented as of this encounter
--- OUTSIDE RECORDS SUMMARY | 2025-06-23 10:23 | XMS_ITS | Encounter Summary ---
Author Organization [employer] Address [address] [facility] 7[address] [place] [address] Care Team Providers Care Poker In Name Role Phone Wendy Martell MD Primary Care Provide r Wendy Pang MD Primary Care Pro vider Encounter Details Date Type Department Care Team (Late st Contact Info) Description 02/18/2023 Orders Only [facility] MEDICINE 230 [place] [address] Jordana Jose CNM 230 [place] [address] Social History Tobacco Use Types Packs/Day Years [...] MD IN CLINIC/BEDSIDE ORDERABLES Fin al Result [facility] [address] [place] [address] [phone] documented in this encounter Visit Diagnoses Not on filedocumented in this encounter Care Teams Poker In Relationship Specialty Start Date End Date Wendy Martell MD 230 [place] [address] PCP - General Internal Medicine 11/22/22 02/22/23 Wendy Pang MD 230 [place] [address] PCP - General Internal Medicine 02/23/23 documented as of this encounter
--- OUTSIDE RECORDS SUMMARY | 2025-06-23 10:23 | XMS_ITS | Encounter Summary ---
Author Organization [employer] Address [address] [facility] 7[address] [place] [address] Care Team Providers Care Manager Of Merchandising Name Role Phone Wendy Pang MD Primary Care Pro vider Reason for Visit * Reason Comments Med Refill Encounter Details Date Type Department Care Team (Late st Contact Info) Description 03/12/2025 Refill [facility] MEDICINE 230 [place] [address] Wendy Pang MD 230 [place] [address] Polyarthralgia Social History Tobacco Use Types Packs/Day [...] as of this encounter Care Teams Manager Of Merchandising Relationship Specialty Start Date End Date Wendy Pang MD [address] [place] [address] PCP - General Internal Medicine 02/23/23 documented as of this encounter
--- OUTSIDE RECORDS SUMMARY | 2025-06-23 10:24 | XMS_ITS | Encounter Summary ---
Author Organization [employer] Address [address] [facility] 7t [place] [address] Care Team Providers Care Deep Tissue Massage Therapist Name Role Phone Wendy Pang MD Primary Care Pro vider Encounter Details Date Type Department Care Team (Late st Contact Info) Description 08/13/2024 Telephone [facility] MEDICINE 230 [place], [place] [phone] Wendy Pang MD 230 [place] [address] Social History Tobacco Use Types Packs/Day Years [...] documented as of this encounter Care Teams Deep Tissue Massage Therapist Relationship Specialty Start Date End Date Wendy Pang MD [address] [place] [address] PCP - General Internal Medicine 02/23/23 documented as of this encounter
--- OUTSIDE RECORDS SUMMARY | 2025-06-23 10:24 | XMS_ITS | Encounter Summary ---
Author Organization [employer] Address [address] [facility] [address] [address] Care Team Providers Care Retail Account Manager Name Role Phone Wendy Pang MD Primary Care Pro vider Reason for Visit * Reason Onset Date Comments pt1 12/14/2024 Encounter Details Date Type Department Care Team (Late st Contact Info) Description 12/14/2024 Telephone [facility] MEDICINE 230 [place] [address] Wendy Pang MD 230 [place] [address] pt1 Social History Tobacco Use Types Packs/Day [...] Y/N: Yes Provider name or facility name: [facility] [address] [facility] [address] Escort needed: Y/N: Yes Do you have a wheelchair: Y/N: No If yes- Manual or electric: Visits: (5) ( x monthly,) 2- Patient calling requesting PT1 Home Address verified: Y/N: Yes Provider name or facility name: [address] [place] [address] Escort needed: Y/N: Yes Do you have [...] documented as of this encounter Care Teams Retail Account Manager Relationship Specialty Start Date End Date Wendy Pang MD [address] [place] [address] PCP - General Internal Medicine 02/23/23 documented as of this encounter
--- OUTSIDE RECORDS SUMMARY | 2025-06-23 10:24 | XMS_ITS | Encounter Summary ---
Author Organization [employer] Address [address] [facility] [address] 7t [place] [address] Care Team Providers Care Pearl Glue Operator Name Role Phone Wendy Pang MD Primary Care Pro vider Encounter Details Date Type Department Care Team (Late st Contact Info) Description 09/29/2024 Orders Only [facility] MEDICINE 230 [place] [address] Provider, MD Mychal Social History Tobacco Use [...] the past 12 months, has t he [employer], gas, oil or water [employer] threatened to shut off services in your [...] documented as of this encounter Care Teams Pearl Glue Operator Relationship Specialty Start Date End Date Wendy aPng MD [address] [place] [address] PCP - General Internal Medicine 02/23/23 documented as of this encounter
--- OUTSIDE RECORDS SUMMARY | 2025-06-23 10:24 | XMS_ITS | Encounter Summary ---
Author Organization [employer] Address [address] [facility] [place] [address] Care Team Providers Care Tier In Name Role Phone Wendy Pang MD Primary Care Pro vider Reason for Visit * Reason Onset Date Comments Med Refill 07/13/2024 Encounter Details Date Type Department Care Team (Late st Contact Info) Description 07/13/[address] [facility] MEDICINE 230 [place] [address] Wendy Pang MD 230 [place] [address] Med Refill Social History Tobacco Use Types [...] 11:39 AM EST Medication was sent to [facility] on 06/16/24 0.25 mg dose and 0.5 mg. * Telephone Encounter - Chad Kim - 07/13/2024 11:18 AM EST TC from pt requesting medication refill. Medications needing refill: Semaglutide-Weight Management (Wegovy) 0.25 MG/0.5ML solution auto-injector To be sent to: [facility] - [place], [place] - [address] [place] [address] documented in this encounter Plan of Treatment Not on file documented as of this encounter Visit Diagnoses Not on filedocumented in this encounter Additional Health Concerns Assessment Noted Time PHQ-9 Depression Total Score: 10 024 1:15 PM EDT documented as of this encounter Care Teams Tier In Relationship Specialty Start Date End Date Wendy Pang MD 230 [place] [address] PCP - General Internal Medicine 02/23/23 documented as of this encounter
--- OUTSIDE RECORDS SUMMARY | 2025-06-23 10:24 | XMS_ITS | Encounter Summary ---
Author Organization [employer] Address [address] [facility] [address] 7t [place] [address] Care Team Providers Care Saddle Mechanic Name Role Phone Wendy Pang MD Primary Care Pro vider Reason for Visit * Reason Comments Med Refill Encounter Details Date Type Department Care Team (Late st Contact Info) Description 02/18/2025 Refill [facility] 230 [place], [place] [phone] Lana Obrien NP 230 [place] [address] Unspecified Eustachian tube disorder, left ear Social [...] documented as of this encounter Care Teams Saddle Mechanic Relationship Specialty Start Date End Date Wendy Pang MD [address] [place] [address] PCP - General Internal Medicine 02/23/23 documented as of this encounter
--- OUTSIDE RECORDS SUMMARY | 2025-06-23 10:24 | XMS_ITS | Encounter Summary ---
Author Organization [employer] Address [address] [facility] [address] [address] Care Team Providers Care Dietary Tech Name Role Phone Wendy Pang MD Primary Care Pro vider Reason for Visit * Reason Onset Date Comments PT-1 08/04/2024 Encounter Details Date Type Department Care Team (Late st Contact Info) Description 08/04/2024 Telephone [facility] MEDICINE 230 [place] [address] Wendy Pang MD 230 [place] [address] PT-1 Social History Tobacco Use Types Packs/Day [...] documented as of this encounter Care Teams Dietary Tech Relationship Specialty Start Date End Date Wendy Pang MD [address] [place] [address] PCP - General Internal Medicine 02/23/23 documented as of this encounter
== END 2025-06-23 09:42 | disposition home or self-care (01) ==
LOC: HO.HOS 09:24
PROVIDERS: PCP Student in an Organized Health Care Education/Training Program; Visit Provider Orthopaedic Surgery
DX: M17.12 Unilateral primary osteoarthritis, left knee (principal)
CPT/HCPCS: 20610; 99213

== ENCOUNTER → 2025-06-23 09:23 | Outpatient (BNVA) | payer MEDICAID, SELFPAY | PROVIDERS: PCP Student in an Organized Health Care Education/Training Program; Visit Provider Orthopaedic Surgery | DX: M17.12 Unilateral primary osteoarthritis, left knee (principal) | CPT/HCPCS: 20610; 99212; J2003; J7318 ==

== ENCOUNTER 2025-08-05 14:46 | Outpatient (AMB) | payer MEDICAID, SELFPAY ==
[2025-08-05 14:53] VITALS: BMI 34.2
--- NOTE | 2025-08-05 14:53 | A.OFFVIS_ITS ---
Vital Signs 08/05/25 14:53 Height 5 ft 4 in Weight 199 lb BMI 34.2 Intake Visit Reasons: left and rt foot pain Intake Note: Jocelin is a 55 year old female who presents to the office today as a new patient referred by her Orthopedic Doctor for bilateral foot pain. Pt states pain has been going on for about 2 years on the biteral whole foot, as well as the pain being constant. She denies any previous treatment or medications. Allergies No Known Allergies Allergy (Verified 08/05/25 14:53) HPI Comments Details: The patient is a 55 year old female with a past medical history as seen below presenting with bilateral foot pain for the past 2 years. She reports a sudden onset of pain in both feet without any preceding injury, with the right foot being worse than the left. She rates the pain as an 8/10 and states the feet diffusely affect the feet. The pain is most severe in the morning, making it difficult for her to place her feet on the floor upon waking; she needs to sit and move her feet to get them to respond. She also experiences gait instability and imbalance, feeling as if she veers to the side and almost falls while walking. She is unable to stand for long periods due to the pain. The patient denies taking any medications for the pain, though she does massage her feet for relief. She uses a walker while in her apartment. She has had no prior x-rays of her feet and reports no known drug or food allergies. She denies any other pedal concerns. [facility] Medical History (Updated 08/15/25 @ 12:50 by Roxana Bautista DPM) Arthritis of both feet Other enthesopathy of unspecified foot and ankle Pelvic pain Cervical high risk HPV (human papillomavirus) test positive Vaginal discharge Postop check Fibromyalgia Osteoarthritis Polyarthralgia Post traumatic stress disorder Constipation Cervical disc disease Generalized anxiety disorder Mixed hyperlipidemia Type 2 diabetes mellitus HTN (hypertension) Tachycardia Sleep apnea LGSIL on Pap smear of cervix Surgical History Hx of tubal ligation Hx of section Social History Alcohol intake: never Patient Tobacco Use Status: Never used Tobacco Female Reproductive History Menstrual Age of Menarche: 12 Review of Systems Const Details: - Musculoskeletal: Reports bilateral foot pain, rated 8/10, affecting the dorsal, plantar, and lateral aspects of the feet, as well as the posterior heel. - Neurological: Reports gait instability and a sensation of imbalance while walking. All systems reviewed & are unremarkable except as noted in HPI and below Physical Exam Vital Signs: BMI result Body Mass Index 34.2 Extrem Other: Bilateral lower extremity focused physical exam: Derm: No open lesions abrasions or wounds noted. No ecchymosis, erythema, or discoloration noted. No maceration or hyperkeratotic areas noted. No clinical signs of infection noted. Skin supple and turgor within normal limits. Vascular: DP/PT pulses palpable. Capillary refill time less than 3 seconds. Temperature gradient warm to warm. Pedal hair absent. No varicosities noted. Neuro: Protective sensation is grossly intact to light touch. MSK: Pain on palpation to the dorsal aspect of the foot, anterior of the ankle and posterior aspect of the heel bilaterally. Pain with range of motion of the ankle during plantar flexion and dorsiflexion. Range of motion of the forefoot and hindfoot within normal limits. No crepitus or fluctuance noted. Mildly antalgic gait unassisted noted. Results Reviewed Results Reviewed: Laboratory Tests 05/19/25 08:54 Random Glucose 85 AST 33 H ALT 34 H Ordered B/L foot weightbearing 3 view xrays to be performed prior to next visit. Assessment & Plan Assessment & Plan (1) Bilateral foot pain: Code(s): M79.671 - Pain in right foot; M79.672 - Pain in left foot Category: Medical (2) Other enthesopathy of unspecified foot and ankle: Code(s): M77.50 - Other enthesopathy of unspecified foot and ankle Category: Medical (3) Arthritis of both feet: Code(s): M19.071 - Primary osteoarthritis, right ankle and foot; M19.072 - Primary o steoarthritis, left ankle and foot Category: Medical Plan Patient was informed and verbally consented to the use of an ambient scribe for clinic note documentation during this visit. I discussed with the patient her symptoms of bilateral foot pain, which is worse in the right foot, and associated gait instability. I explained the plan to obtain bilateral foot X-rays to investigate the underlying cause. I prescribed a Medrol Dosepak to help alleviate her inflammation and pain. I instructed her to get the X-rays done before returning for her follow-up visit in two weeks, at which time we will review the results. - Ordered bilateral foot x-rays to be performed prior to next visit. - Prescribed a Medrol Dosepak. - Advised patient to wear supportive shoe gear, avoid barefoot walking, and avoid tight-fitting shoes. RTC in 2 weeks. Orders: Orders XR Foot Vasiliy 3V 08/09/25 M79.671 - Pain in right foot, M79.672 - Pain in left foot Medications: New methylprednisolone (Medrol (Jared)) PO PER PKG DIR 21 ea 0RF M79.671 - Pain in right foot, M79.672 - Pain in left foot Coding Level of Care Code New Pt Level 4 (33572) Diagnoses Bilateral foot pain M79.671; M79.672 Other enthesopathy of unspecified foot and ankle M77.50 Arthritis of both feet M19.071; M19.072 Time Spent (min) 46
--- OUTSIDE RECORDS SUMMARY | 2025-08-05 18:54 | XMS_ITS | Encounter Summary ---
Author Organization [employer] Address [address] [place] [address] Care Team Providers Care Oracle Database Architect Name Role Phone Wendy Pang MD Primary Care Pro vider Reason for Visit * Reason Comments Med Refill Encounter Details Date Type Department Care Team ([facility] st Contact Info) Description 03/15/2025 Refill [facility] [address] [place] [address] Wendy Pang MD [address] [place] [address] Polyarthralgia Social History Tobacco Use Types Packs/Day [...] Care Team (Late st Contact Info) Description 09/08/2025 10:00 AM EST Office Visit [facility] [address] [place] [address] [phone] Wendy Pang MD [address] [place] [id number] documented as of this encounter Visit Diagnoses Diagnosis Polyarthralgia Pain in joint, multiple sites documented in this encounter Additional Health Concerns Assessment Noted Time PHQ-9 Depression Total Score: 17 025 9:06 AM EDT documented as of this encounter Care Teams Oracle Database Architect Relationship Specialty Start Date End Date Wendy Pang MD [address] [place] [address] [phone] PCP - General Internal Medicine 02/23/23 documented as of this encounter
--- OUTSIDE RECORDS SUMMARY | 2025-08-05 18:54 | XMS_ITS | Clinical Summary ---
Author Organization [employer] Address [address] [place] [address] Care Team Providers Care Geophysical Data Technician Name Role Phone Wendy Pang MD [...] 1 Device Once per day. 1 kit 4 Active losartan-hydroCHL OROthiazide (Hyzaar) 100-12.5 MG tablet TAKE 1 TABLET BY MOUTH EVERY DAY 90 tablet 3 5 Active polyvinyl alcohol (Liquifilm Tears) 1.4 % ophthalmic solutionIndicatio ns:Dry eyes, bilateral Administer 1 drop into both eyes if needed for dry eyes. 15 mL 5 5 Active Tirzepatide-Weigh t Management (Zepbound) 15 MG/0.5ML solution auto-injector Inject 0.5 mL (15 mg) under the skin 1 (one) time per week. 6 mL 3 07/08/2025 10:06 AM EST 5 03/16/20 26 Active levothyroxine (Synthroid, Levoxyl) 88 MCG tablet TAKE 1 TABLET BY MOUTH EVERY MORNING BEFORE BREAKFAST 90 tablet 1 5 Active traZODone (Desyrel) 50 MG tablet Take by mouth at bedtime. Active lidocaine (Lidoderm) 5 % patchIndications: Sprain of anterior talofibular ligament of left ankle, initial encounter Apply 1 patch topically Once per day. Remove & discard patch within 12 hours or as directed by MD. 30 patch 3 10/10/202 5 Active ammonium lactate (Lac-Hydrin) 12 % lotion Apply topically at noon and in the evening. 225 g 2 5 05/28/20 26 Active DULoxetine (Cymbalta) [address] capsuleIndication s:PTSD (post-traumatic stress disorder) TAKE 1 CAPSULE BY MOUTH TWICE DAILY IN THE MORNING AND IN THE EVENING DO NOT BREAK, CRUSH, DISSOLVE OR CHEW 60 capsule 2 07/08/2025 10:06 AM EST 5 Active pregabalin (Lyrica) 150 MG capsuleIndication s:Polyarthralgia Take 1 capsule (150 mg) by mouth 2 times daily. Do not start before June 09, 2025. 60 capsule 2 07/08/2025 10:06 AM EST 5 08/07/20 25 Active melatonin 5 MG tablet Take 1 tablet (5 mg) by mouth at bedtime. 90 tablet 5 06/07/20 26 Active ezetimibe (Zetia) 10 MG tablet Take 1 tablet (10 mg) by mouth Once per day. 90 tablet 5 06/07/20 26 Active montelukast (Singulair) 10 MG tablet Take 1 tablet (10 mg) by mouth Once per day. 90 tablet 5 06/18/20 Active albuterol 108 (90 Base) MCG/ACT inhalerIndication s:Mild intermittent asthma without complication Inhale 2 puffs every 4 (four) hours if needed for wheezing. 18 g 5 06/29/20 26 Active cetirizine (ZyrTEC) 10 MG tablet TAKE 1 TABLET BY MOUTH EVERY EVENING 90 tablet 07/08/2025 10:06 AM EST 5 Active Active Problems Problem Noted Date Diagnosed Date [...] of migraines, was receiving a medication from [place], not sure of the name Will start [...] (Eric Ruff) and has a therapist in [place] (agency unknown). Pt will continue current MH [...] (Eric Ruff) and has a therapist in [place] (agency unknown). Pt will continue current treatment [...] organization. Date Type Department Care Team Description 07/14/2025 Patient Outreach [address] [address] Wendy Pang MD Care Coordination (W outreach for SDOH housing search-referral completed ) 07/14/[address] [address] Wendy Pang MD pt1 07/02/[address] [address] Wendy Pang MD 06/29/2025 4:20 PM EST Office Visit [facility] [address] [place] [phone] Anita Oliva MD Mild intermittent asthma without complication (Primary Dx); Cough, unspecified type 06/25/[address] [address] Wendy Pang MD Call Back Request 06/18/2025 Orders Only [address] [address] Wendy Pang MD 06/18/2025 Orders Only [address] [address] Wendy Pang MD Pulsatile tinnitus of both ears (Primary Dx) 06/17/2025 Results Follow-Up [address] TEMPORAL BONE WO CONTRAST 06/09/[address] [address] Wendy Pang MD Jimbo recall 06/09/[address] [address] Wendy Pang MD 06/07/[address] [address] Wendy Pang MD 06/02/2025 Refill [facility] [address] [place], [place] [phone] Wendy Pang MD PTSD (post-traumatic stress disorder); Polyarthralgia 05/28/2025 1:15 PM EDT Office Visit [address] [address] Wendy Pang MD Leg mass, left (Primary [...] Left foot pain 05/28/2025 Travel 05/27/2025 Telephone [facility] [address] [place] [address] Wendy Pang MD chart prep 05/21/2025 Patient Outreach [facility] [address] [place], [place] [phone] Wendy Pang MD Pre-visit Planning (SDOH was already completed) 05/19/2025 Results Follow-Up [facility] [address] [place] [address] Wendy Pang MD Comprehensive Metabolic Panel, Lipid Panel, Standard, Creatine Kinase, Total 05/19/2025 Orders Only [facility] External Provider, [facility] 05/19/2025 Travel 05/18/2025 Telephone [facility] [address] [place], [place] [phone] Wendy Pang MD 05/11/2025 Refill [facility] [address] [place] [address] Wendy Pang MD from Last 3 Months [...] Sign Reading Time Taken Comments Blood Pressure 138/85 06/29/2025 4:24 PM EST Pulse 94 06/29/2025 4:24 PM EST Temperature 36.2 C (97.2 F) 06/29/2025 4:24 PM EST Respiratory Rate 20 06/29/2025 4:24 PM EST Oxygen Saturation 98% 06/29/2025 4:24 PM EST Inhaled Oxygen Concentration - - Weight 81.9 kg (180 lb 9.6 oz) 06/29/2025 4:24 P M EST Height 154.9 cm (5' 1 ) 05/28/2025 1:12 PM EDT Body Mass Index 34.12 05/28/2025 1:12 PM EDT Plan of Treatment Upcoming Encounters Date Type Department Care Team (Late st Contact Info) Description 09/08/2025 10:00 AM EST Office Visit [facility] [address] [place] [address] Wendy Pang MD [address] [place] [address] Health Maintenance Due Date Last Done Comments CT Colonography 1970 Colonoscopy 1970 Colorectal Cancer Screening 1970 FIT DNA/Cologuard 1970 FIT 1970 FOBT 1970 Sigmoidoscopy 1970 Diabetes: Foot Exam 1980 Hepatitis A Vaccines (1 of 2 - Risk 2-dose series) 1989 Pneumococcal Vaccine: 50+ Years (1 of 2 - PCV) 1989 RSV Patients and Patients Aged 60 years or older (1 - Risk 50-74 years 1-dose series) 2020 Hepatitis B Vaccines (2 of 3 - 19+ 3-dose series) 03/22/2025 02/22/2025 COVID-19 Vaccine ( season) 2025 Depression Monitoring 05/22/2025 11/20/2024, 025 Diabetes: Urine Protein Screening 06/12/2025 06/12/2024, 06/12/2024 Diabetes: Hemoglobin A1C 09/18/2025 025, 06/12/2024, [...] (2 - Td or Tdap) 04/28/2034 04/28/2024 Colposcopy Discontinued 02/11/2024, 01/17, 01/31/2023 HIV Screening [...] TO SLEEP MEDICINE Routine 05/12/2025 Loud snoring POCT GLYCATED HEMOGLOBIN, TOTAL Routine 03/18/2025 11:54 [...] AM EDT Narrative 06/17/2025 10:24 AM EDT [place] [address] [address] Scan Report Signed Patient: Jocelin Auguste R#: [id number] : 1970 Acct:[id number] Age/Sex: 55 / F ADM Date: 06/17/25 Loc: HO.CT Attending Dr: Wendy Vance MD Ordering Physician: Wendy Pang MD Date of Service: 06/17/25 Procedure(s): CT mastoid Accession Number(s): [id number] cc: Wendy Pang MD Report Number: [id number]: Total DLP = 148.00 mGy-cm Reason for [...] Jero Nickerson MD 06/17/2025 10:21 AM EDT RP Dictated By: Jero Avilez MD Signed By: <Electronically signed by Jero Grimes MD in OV> 06/17/25 1021 DD/ 0916 TD/TT: 06/17/25 0943 Chief Orthoptist: Procedure Note Donotuseinterpreter, Image - 06/17/[address] [address] [address] Scan Report Signed Patient: Jo Auguste R#: [id number] : 1970Acct:[id number] Age/Sex: 55 / FADM Date: 06/17/25 Loc: HO.CT Attending Dr: Wendy Vance MD Ordering Physician: Wendy Pang MD Date of Service: 06/17/25 Procedure(s): CT mastoid Accession Number(s): [id number] cc: Wendy Pang MD Report Number: [id number]: Total DLP = 148.00 mGy-cm Reason for [...] 06/17/25 1021 DD/ 0916 TD/TT: 06/17/25 0943 Chief Orthoptist: Wendy Vance MD IMG CT PROCEDURES Edited Result - Final * XR Knee 3 Views Left (05/20/2025 10:58 AM EDT) Anatomical Region Laterality Modality Lower Extremities, Knee Left Radiogra phic Imaging 05/20/2025 10:5 8 AM EDT Narrative 05/20/2025 11:10 AM EDT [facility] [address] [place] [address] XRay Report Signed Patient: Jocelin Auguste R#: [id number] : 1970 Acct:[id number] Age/Sex: 54 / F ADM Date: 05/20/25 Loc: HO.HOSX Attending Dr: Cullen Hunter MD Ordering Physician: Cullen Hunter MD Date of Service: 05/20/25 Procedure(s): XR knee LT 3V Accession Number(s): [id number] cc: Wendy Pang MD; Cullen Hunter MD [...] 05/20/25 1107 DD/ 1058 TD/TT: 05/20/25 1100 Chief Orthoptist: Procedure Note Donotuseinterpreter, Image - 05/20/2025 [facility] [address] [place] [address] XRay Report Signed Patient: Jo Auguste R#: [id number] : 1970Acct:[id number] Age/Sex: 54 / FADM Date: 05/20/25 Loc: HO.HOSX Attending Dr: Cullen Hunter MD Ordering Physician: Cullen Hunter MD Date of Service: 05/20/25 Procedure(s): XR knee LT 3V Accession Number(s): [id number] cc: Wendy Pang MD; Cullen Hunter MD [...] 05/20/25 1107 DD/ 1058 TD/TT: 05/20/25 1100 Chief Orthoptist: [facility] External Provider IMG XR PROCEDURES Edited Result - Final * XR CERVICAL SPINE 4V (05/19/2025 9:02 AM EDT) Anatomical Region Laterality Modality Abdomen Radiographic Jeanine ging 05/19/2025 9:02 AM EDT Narrative 05/19/2025 9:42 AM EDT [address] [address] XRay Report Signed Patient: Thompson Luis ArmandoLilliamJocelin M R#: [id number] : 1970 Acct:[id number] Age/Sex: 54 / F ADM Date: 05/19/25 Loc: HERBERTHX Attending Dr: Cullen Hunter MD Ordering Physician: Cullen Hunter MD Date of Service: 05/19/25 Procedure(s): XR cervical spine 4V Accession Number(s): [id number] cc: Wendy Pang MD; Cullen Hunter MD [...] Pate MD in OV> 05/19/25 0939 DD/ 0902 TD/TT: 05/19/25 0903 Chief Orthoptist: Procedure Note Donotuseinterpreter, Image - 05/19/[address] [address] XRay Report Signed Patient: Jo Auguste R#: [id number] : 1970Acct:[id number] Age/Sex: 54 / FADM Date: 05/19/25 Loc: HERBERTHX Attending Dr: Cullen Hunter MD Ordering Physician: Cullen Hunter MD Date of Service: 05/19/25 Procedure(s): XR cervical spine 4V Accession Number(s): [id number] cc: Wendy Pang MD; Cullen Hunter MD [...] in OV> 05/19/25938 DD/ 1 TD/TT: 05/19/25 0903 Chief Orthoptist: us [facility] External Provider IMG XR PROCEDURES Final Result * Creatine Kinase, Total (05/19/2025 8:54 AM EDT) Creatine Kinase Total 110 26 - 140 U/L [facility] Blood Venous blood specimen / Unknown 05/19/2025 8:54 AM EDT 05/19/2025 11:04 AM EDT Wendy Vance MD LAB BLOOD ORDERAB LES Final Result [facility] [address] [place] [phone] * (ABNORMAL) Lipid Panel, Standard (05/19/2025 8:54 AM EDT) Triglycerides 127 <150 mg/dL [facility] Comment:Desirable Triglyceri de: less than 150 mg/dLBorderline High Triglyceride 150-199 mg/dLHigh Triglyceride: 200-499 mg/dLVery High Triglyceride: greater than or equal to 5OO mg/dL Cholesterol 183 <200 mg/dL [facility] Comment:Desirable Cholestero l: less than 200 mg/dLBorderline High Cholesterol: 200-239 mg/dLHigh Cholesterol: greater than 239 mg/dL LDL Cholesterol Calculated 118(H) <100 mg/dL [facility] Comment:Desirable LDL: less than 100 mg/dLNear Optimal/Above Optimal LDL: 110- 129 mg/dLBorderline High LDL: 130-159 mg/dLHigh LDL: 160-189 mg/dLVery High LDL: greater than or equal to 190 mg/dL HDL Cholesterol 40(L) >40 mg/dL [facility] Comment:Desirable HDL: great er than 40 mg/dL Note: This HDL assay may give artificially low results in patients with liver disease. Blood Venous blood specimen / Unknown 05/19/2025 8:54 AM EDT 05/19/2025 11:04 AM EDT us Wendy Vance MD LAB BLOOD ORDERAB LES Final Result [facility] [address] [place] [phone] * (ABNORMAL) Comprehensive Metabolic Panel (05/19/2025 8:54 AM EDT) Sodium 144 135 - 145 mmol/L [facility] Potassium 3.8 3.3 - 5.1 mmol/L [facility] Chloride 109(H) 96 - 108 mmol/L [facility] Carbon Dioxide 27 22 - 29 mmol/L [facility] Anion Gap 12 12 - 20 [facility] Urea Nitrogen (BUN) 21(H) 9 - 16 mg/dL [facility] Creatinine, Serum 0.66 0.5 - 1.4 mg/dL [facility] Estimated Glomerular Filt Rate >60 [facility] Comment:Chronic Kidney Disea se: Estimated GFR < 60 mL/min/1.82j9Zjpexb Kidney Disease: Estimated GFR < 15 mL/min/1.73m2 Glucose 85 60 - 115 mg/dL [facility] Calcium 9.4 8.4 - 10.2 mg/dL [facility] Bilirubin, Total 0.2 0.0 - 1.0 mg/dL [facility] Aspartate Amino Transferase 33(H) 5 - 31 U/L [facility] Alanine Aminotransferase 34(H) 0 - 31 U/L [facility] Total Protein 7.9 6.5 - 8.0 g/dL [facility] Albumin Level 4.5 3.5 - 5.0 g/dL [facility] Alkaline Phosphatase 69 39 - 117 U/L [facility] Blood Venous blood specimen / Unknown 05/19/2025 8:54 AM EDT 05/19/2025 11:04 AM EDT Wendy Vance MD LAB BLOOD ORDERAB LES Final Result [facility] [address] [place] [phone] * Referral to Sleep Medicine (05/12/2025) Wendy Vance MD OUTPATIENT REFERR AL ORDERABLES Final Result * POCT HGB A1C [...] EDT Narrative 03/15/2025 10:34 AM EDT [facility] [address] [place] [address] Mammography Report Signed Patient: Jocelin Auguste R#: [id number] : 1970 Acct:[id number] Age/Sex: 54 / F ADM Date: 03/04/25 Loc: HOJessicaMAMMBruno Attending Dr: Wendy Vance MD Ordering Physician: Wendy Pang MD Re sults: 1Negative Date of Service: 03/04/25 Follow Up: 1 Year From Orig ina Mammogram Procedure(s): MM tomosynthesis screening BI Accession Number(s): [id number] cc: Wendy Pang MD EXAMINATION: MM SCREENING [...] in OV> 03/15/25 1031 DD/ 5 TD/TT: 03/04/25948 Chief Orthoptist: Procedure Note Donotuseinterpreter, Image - 03/15/2025 [facility] [address] [place], [place] [address] Mammography Report Signed Patient: Jo Auguste R#: [id number] : 1970Acct:[id number] Age/Sex: 54 / FADM Date: 03/04/25 Loc: HO.MAMMO Attending Dr: Wendy Vance MD Ordering Physician: Wendy Pang sults: 1Negative Date of Service: 03/04/25Follow Up: 1 Year From Orig inal Mammogram Procedure(s): MM tomosynthesis screening BI Accession Number(s): [id number] cc: Wendy Pang MD EXAMINATION: MM SCREENING [...] 03/15/2025 10:31 AM EDT Dictated By: Keyonna oClin DO Signed By: <Electronically signed by Keyonna Colin DO in OV> 03/15/25 1031 DD/ 5 TD/TT: 03/04/25 0949 Chief Orthoptist: Wendy Vance MD IMG BI PROCEDURES Final Result * HM PAP/HPV (01/04/2025 9:22 AM EDT) Only the most recent of2 resultswithin the time period is included. Historical Provider HEALTH MAINTENANCE Final Result * Albumin, Random Urine W/Creatinine (06/12/2024 11:40 AM EDT) Creatinine, Urine 195.62 mg/dL [facility] Microalbumin Urine 41.0 mg/L [facility] Microalbum Creatinine Ratio Ur 20.9 <30 ug/mg cr [facility] Comment:Albumin/Creatinine R atio Reference Ranges: Normal: < 30 ug/mg creatinine Microalbuminuria: 30 - 300 ug/mg creatinineClinical Albuminuria: > 300 ug/mg creatinine Urine (Urine, Random) 06/12/2024 11:40 AM EDT 06/12/2024 1:08 PM EDT Wendy Vance MD LAB URINE ORDERAB LES Final Result Performing Organization Address [facility] Co de Phone Number [facility] [address] [place] [phone] * Hepatitis C Antibody with Reflex to HCV, RNA, Quantitative, Real-Time PCR (06/12/2024 11:39 AM EDT) Hepatitis C Antibody Nonreactive Nonreactive [facility] Comment:Antibodies to HCV no t detected; does not exclude early acuteHCV infection. Blood Venous blood specimen / Unknown 06/12/2024 11:39 AM EDT 06/12/2024 1:19 PM EDT Wendy Vance MD LAB BLOOD ORDERAB LES Final Result Performing Organization Address City/[facility]/ZIP Co de Phone Number [facility] [address] [place] [phone] [phone] * HIV-1/2 Antigen and Antibodies, Fourth Generation, with Reflexes (06/12/2024 11:39 AM EDT) HIV AB/AG Nonreactive Nonreactive [facility] Comment:HIV-1 p24 Ag and/or HIV-1/HIV-2 Ab not detected.A test result that is nonreactive does not exclude thepossibility of exposure to or infection with HIV-1 and/orHIV-2. Nonreactive results in this assay for individualswith prior exposure to HIV-1 and/or HIV-2 may be due toantigen and antibody levels that are below the limit ofdetection of this assay.The Cerecor HIV Ag/Ab Combo assay result andsupplemental assay results should be interpreted inconjunction with the patient's clinical presentation,history and other laboratory results. If the results areinconsistent with clinical evidence, additional testing issuggested to confirm the result. Blood Venous blood specimen / Unknown 06/12/2024 11:39 AM EDT 06/12/2024 1:19 PM EDT Wendy Vance MD LAB BLOOD ORDERAB LES Final Result [facility] [address] [place] [phone] * Colposcopy (02/11/2024 9:20 AM EDT) us Historical Provider IN CLINIC/BEDSIDE ORDERAB LES Edited Result - Final from Last 3 Months or Most Recently Relevant to Health Maintenance [facility] Care Teams Geophysical Data Technician Relationship Specialty Start Date End Date Wendy Pang MD [address] [place] [phone] PCP - General Internal Medicine 02/23/23
--- OUTSIDE RECORDS SUMMARY | 2025-08-05 18:54 | XMS_ITS | Encounter Summary ---
Author Organization [employer] Address [address] [facility] 7 [place] [address] Care Team Providers Care Motor Generator Set Operator Name Role Phone Wendy Pang MD Primary Care Pro vider Reason for Visit * Reason Onset Date Comments Med Refill 07/13/2024 Encounter Details Date Type Department Care Team ([facility] st Contact Info) Description 07/13/2024 Telephone [facility] [address] [place] [address] Wendy Pang MD [address] [place] [address] Med Refill Social History Tobacco Use Types [...] 11:39 AM EST Medication was sent to [facility] on 06/16/24 0.25 mg dose and 0.5 mg. * Telephone Encounter - Chad Kim - 07/13/2024 11:18 AM EST TC from pt requesting medication refill. Medications needing refill: Semaglutide-Weight Management (Wegovy) 0.25 MG/0.5ML solution auto-injector To be sent to: [facility] - [place], [place] - [address] [place] [address] documented in this encounter Plan of Treatment Upcoming Encounters Date Type Department Care Team ([facility] st Contact Info) Description 09/08/2025 10:00 AM EST Office Visit [facility] [address] [place] [address] Wendy Pang MD [address] [place] [address] documented as of this encounter Visit Diagnoses Not on filedocumented in this encounter Additional Health Concerns Assessment Noted Time PHQ-9 Depression Total Score: 10 024 1:15 PM EDT documented as of this encounter Care Teams Motor Generator Set Operator Relationship Specialty Start Date End Date Wendy Pang MD [address] [place] [phone] PCP - General Internal Medicine 02/23/23 documented as of this encounter
--- OUTSIDE RECORDS SUMMARY | 2025-08-05 18:54 | XMS_ITS | Encounter Summary ---
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 Please contract pt at [phone]. (Croatian Speaker) documented in this encounter Plan of Treatment Upcoming Encounters Date Type Department Care Team (Late st Contact Info) Description 09/08/2025 10:00 AM EST Office Visit [facility] [address] [place] [address] Wendy Pang MD [address] [place] [address] documented as of this encounter Visit Diagnoses Not on filedocumented in this encounter Additional Health Concerns Assessment Noted Time PHQ-9 Depression Total Score: 10 024 1:15 PM EDT documented as of this encounter Care Teams Television Tube Inspector Relationship Specialty Start Date End Date Wendy Pang MD [address] [place] [phone] PCP - General Internal Medicine 02/23/23 documented as of this encounter
--- OUTSIDE RECORDS SUMMARY | 2025-08-05 18:54 | XMS_ITS | Patient Health Record ---
Author Organization [facility] Address [address] [place] [address] Care Team Providers Care Insurance Sales Assistant Name Role Phone Michael Muller Primary Care [...] Status W/U Status Risk Notes Problem Cervicalgia (78313608) Cervicalgia (M54.2) Active confirmed Problem Morbid obesity (disorder) (182876852) Morbid (severe) obesity due to excess calories (E66.01) Active confirmed Problem Acquired hypothyroidism (233939209) Acquired hypothyroidism (E03.9) Active confirmed Problem Hyperlipidaemia (95284061) Hyperlipidemia, unspecified hyperlipidemia type (E78.5) Active confirmed Problem Type II diabetes mellitus without complication (156576816) Type 2 diabetes mellitus without complication, without long-term current use of insulin (E11.9) Active confirmed Problem Dysphagia (47643777) Dysphagia, unspecified type (R13.10) Active confirmed Problem Mixed anxiety and depressive disorder (641026121) Depression with anxiety (F41.8) Active confirmed Problem Sleep apnea (57081912) Sleep apnea, unspecified type (G47.30) Active confirmed Problem History of asthma (059661562) History of asthma (Z87.09) Active confirmed Problem Pruritic disorders (701096376) Ear itch (L29.9) Active confirmed Problem Sleep apnea (disorder) (44946329) History of sleep apnea (Z86.69) Active confirmed Problem Body mass index 40+ - severely obese (484001950) Body mass index [BMI] 40.0-44.9, adult (Z68.41) [...] End Date HUSKY A [address] [place], [place] [address] [phone] Jocelin [place] Self - patient is the insured DENTAL Medicaid HP [address] [place] [address] [id number] Jocelin [place] Self - patient is the insured Medical (General) History Surgical History Surgery Date(Month/Year) c section x 3 bilat tubal Hospitalization History Reason Date(Month/Year) see surgical
--- OUTSIDE RECORDS SUMMARY | 2025-08-05 18:54 | XMS_ITS | Encounter Summary ---
Author Organization [email or web address] Address [address] [facility] 7t [place] [address] Care Team Providers Care Revenue Cycle Consultant Name Role Phone Wendy Pang MD Primary Care Pro vider Reason for Visit * Reason Comments Med Refill Encounter Details Date Type Department Care Team ([facility] st Contact Info) Description 03/12/2025 Refill [facility] MEDICINE [address] [place] [address] Wendy Pang MD 230 [place] [address] Polyarthralgia Social History Tobacco Use Types Packs/Day [...] Description 09/08/2025 10:00 AM EST Office Visit [facility] MEDICINE [address] [place] [address] Wendy Pang MD [address] [place] [address] documented as of this encounter Visit Diagnoses Diagnosis Polyarthralgia Pain in joint, multiple sites documented in this encounter Additional Health Concerns Assessment Noted Time PHQ-9 Depression Total Score: 17 025 9:06 AM EDT documented as of this encounter Care Teams Revenue Cycle Consultant Relationship Specialty Start Date End Date Wendy Pang MD [address] [place] [phone] PCP - General Internal Medicine 02/23/23 documented as of this encounter
--- OUTSIDE RECORDS SUMMARY | 2025-08-05 18:54 | XMS_ITS | Encounter Summary ---
Author Organization [employer] Address 75 [facility] 7t [place] [address] Care Team Providers Care Implementation Services Analyst Name Role Phone Wendy Pang MD Primary Care Pro vider Reason for Visit * Reason Onset Date Comments Nurse Triage 03/11/2023 Encounter Details Date Type Department Care Team ([facility] st Contact Info) Description 03/11/2023 Telephone [facility] MEDICINE 230 [place] [address] Wendy Pang MD 230 [place] [address] Nurse Triage Social History Tobacco Use Types [...] 03/14/2023 11:06 AM EDT Triage call with [employer] Machine Wiper ID [id number]. Pt was triaged 03/11/23 and advised to come to [facility] to be seen but, didn't go. Pt reports doesn't want to go to [facility] because, I have too many issues Carol only want my doctor . Pt is offered 300pm apt with Dr. Villegas today but, reports no transportation. Advised Pt has 04/18/23 apt for transfer to Dr. Jama Vance and Pt reports my friend said thereare many apts open with Dr. Yun earlier than that and I want to go 03/25. . Co[employer] looked at schedule for that day and no available apts for transfer Pt seen. Phone connection very poor. Call was dropped 3 times during this conversation. Advised Pt to come to [facility] today or tomorrow. Hours given opentill 4pm [...] still has severe pain. Please contact at [phone] * Telephone Encounter - Beryl Schuster RN - 03/11/2023 1:25 PM EDT Triage call with [employer] ID [id number] Pt reports shoulder, neck, middle to low back pain. Pt reports left foot almost gave out and Pt almost fell so Pt has someone walk with her all the time. Pt has suffered loss of mother and other family problems causing the increase of the pain. Pt is not finding effective pain relief and wants to see provider. Advised to come to [facility] today to be seen and Pt agreed. [...] accepted this outcome Please contact pt at [phone] Lao Speaker documented in this encounter Plan of Treatment Upcoming Encounters Date Type Department Care Team (Late st Contact Info) Description 09/08/2025 10:00 AM EST Office Visit [facility] MEDICINE [address] [place] [address] [phone] Wendy Pang MD [address] [place] [phone] documented as of this encounter Visit Diagnoses Not on filedocumented in this encounter Care Teams Implementation Services Analyst Relationship Specialty Start Date End Date Wendy Pang MD [address] [place] [address] [phone] PCP - General Internal Medicine 02/23/23 documented as of this encounter
--- OUTSIDE RECORDS SUMMARY | 2025-08-05 18:54 | XMS_ITS | Encounter Summary ---
Author Organization [employer] [facility] Address [address] [place] [phone] Care Team Providers Care District Representative Name Role Phone Wendy Martell MD Primary Care Provide r Wendy Pang MD Primary Care Pro vider Encounter Details Date Type Department Care Team (Late Contact Info) Description 02/18/2023 Orders Only [facility] MEDICINE [address] [place] [address] Jordana Jose CNM [address] [place] [address] [phone] Social History Tobacco Use Types Packs/Day Years [...] Encounters Date Type Department Care Team (Late Contact Info) Description 09/08/2025 10:00 AM EST Office Visit [facility] MEDICINE [address] [place] [address] Wendy Pang MD [address] [place] [address] [phone] documented as of this encounter Procedures Procedure Name Priority Date/Time Associated Diagnosis Comments COLPOSCOPY Routine 01/31/2023 12:00 AM EDT documented in this encounter Results * Colposcopy (01/31/2023 12:00 AM EDT) us Ronni Bautista MD IN CLINIC/BEDSIDE ORDERABLES Fin al Result [facility] [address] [place] [address] [phone] documented in this encounter Visit Diagnoses Not on filedocumented in this encounter Care Teams District Representative Relationship Specialty Start Date End Date Wendy Martell MD 230 [place] [address] PCP - General Internal Medicine 11/22/22 02/22/23 Wendy Pang MD 230 [place] [address] PCP - General Internal Medicine 02/23/23 documented as of this encounter
--- OUTSIDE RECORDS SUMMARY | 2025-08-05 18:54 | XMS_ITS | Encounter Summary ---
Author Organization [employer] Address [address] [facility] [address] 7t [place] [address] Care Team Providers Care Athletic Scout Name Role Phone Wendy Pang MD Primary Care Pro vider Encounter Details Date Type Department Care Team (Late st Contact Info) Description 09/29/2024 Orders Only [facility] MEDICINE 230 [place] [address] ProviderMychal MD Social History Tobacco Use Types Packs/Day Years [...] Upcoming Encounters Date Type Department Care Team ([facility] st Contact Info) Description 09/08/2025 10:00 AM EST Office Visit [facility] MEDICINE [address] [place] [address] [phone] Wendy Pang MD [address] [place] [address] [phone] documented as of this encounter Procedures Procedure [...] documented as of this encounter Care Teams Athletic Scout Relationship Specialty Start Date End Date Wendy Pang MD [address] [place] [phone] PCP - General Internal Medicine 02/23/23 documented as of this encounter
--- OUTSIDE RECORDS SUMMARY | 2025-08-05 18:54 | XMS_ITS | Encounter Summary ---
Author Organization [employer] Address [address] [facility] [address] 7t [place] [address] Care Team Providers Care Precipitator Operator Name Role Phone Wendy Pang MD Primary Care Pro vider Encounter Details Date Type Department Care Team (Late st Contact Info) Description 03/25/2025 Orders Only [facility] MEDICINE [address] [place] [address] Wendy Pang MD 230 [place] [address] Social History Tobacco Use Types Packs/Day Years [...] Description 09/08/2025 10:00 AM EST Office Visit [facility] MEDICINE [address] [place] [phone] Wendy Pang MD [address] [place] [address] documented as of this encounter Visit Diagnoses Not on filedocumented in this encounter Additional Health Concerns Assessment Noted Time PHQ-9 Depression Total Score: 17 025 9:06 AM EDT documented as of this encounter Care Teams Precipitator Operator Relationship Specialty Start Date End Date Wendy Pang MD [address] [place] [phone] PCP - General Internal Medicine 02/23/23 documented as of this encounter
--- OUTSIDE RECORDS SUMMARY | 2025-08-05 18:54 | XMS_ITS | Encounter Summary ---
Author Organization [employer] Address [address] [facility] [address] 7t [place] [address] Care Team Providers Care Excel Developer Name Role Phone Wendy Pang MD Primary Care Pro vider Encounter Details Date Type Department Care Team (Late st Contact Info) Description 08/13/2024 Telephone [facility] MEDICINE 230 [place] [address] Wendy Pang MD 230 [place] [address] Social History Tobacco Use Types Packs/Day Years [...] Office Visit [facility] MEDICINE [address] [place] [phone] Wendy Pang MD [address] [place] [phone] documented as of this encounter Visit Diagnoses Not on filedocumented in this encounter Additional Health Concerns Assessment Noted Time PHQ-9 Depression Total Score: 10 024 1:15 PM EDT documented as of this encounter Care Teams Excel Developer Relationship Specialty Start Date End Date Wendy Pang MD [address] [place] [phone] PCP - General Internal Medicine 02/23/23 documented as of this encounter
--- OUTSIDE RECORDS SUMMARY | 2025-08-05 18:54 | XMS_ITS | Encounter Summary ---
Author Organization [employer] Address [address] [facility] 7 [place] [address] Care Team Providers Care Plasma Specialist Name Role Phone Wendy Pang MD Primary Care Pro vider Reason for Visit * Reason Onset Date Comments Accamodation Letter 06/25/2024 Encounter Details Date Type Department Care Team ([facility] st Contact Info) Description 06/25/2024 Telephone [facility] MEDICINE 230 [place] [address] Wendy Pang MD 230 [place] [address] Accamodation Letter Social History Tobacco Use Types [...] any questions you can contact pt at [phone]. (Bahamian Speaker) documented in this encounter Plan of Treatment Upcoming Encounters Date Type Department Care Team (Late st Contact Info) Description 09/08/2025 10:00 AM EST Office Visit [facility] MEDICINE 230 [place], [place] [phone] Wendy Pang MD 230 [place], [place] [phone] documented as of this encounter Visit Diagnoses Not on filedocumented in this encounter Additional Health Concerns Assessment Noted Time PHQ-9 Depression Total Score: 10 024 1:15 PM EDT documented as of this encounter Care Teams Plasma Specialist Relationship Specialty Start Date End Date Wendy Pang MD 230 [place], [place] [phone] PCP - General Internal Medicine 02/23/23 documented as of this encounter
--- OUTSIDE RECORDS SUMMARY | 2025-08-05 18:54 | XMS_ITS | Encounter Summary ---
Author Organization [employer] Address [address] [facility] [address] 7t [place] [address] Care Team Providers Care Lead Engineer Name Role Phone Wendy Pang MD Primary Care Pro vider Encounter Details Date Type Department Care Team (Late st Contact Info) Description 03/25/2025 Orders Only [facility] [address] [place], [place] [phone] Provider, MD Mychal Social History Tobacco Use [...] Description 09/08/2025 10:00 AM EST Office Visit [facility] MEDICINE [address] [place] [address] [phone] Wendy Pang MD [address] [place] [address] documented as of this encounter Procedures Procedure Name Priority Date/Time Associated Diagnosis Comments HM PAP/HPV Routine 01/04/2025 9:22 AM EDT documented in this encounter Results * HM PAP/HPV (01/04/2025 9:22 AM EDT) Historical Provider HEALTH MAINTENANCE Final Result documented in this encounter Visit Diagnoses Not on filedocumented in this encounter Additional Health Concerns Assessment Noted Time PHQ-9 Depression Total Score: 17 04/ 025 9:06 AM EDT documented as of this encounter Care Teams Lead Engineer Relationship Specialty Start Date End Date Wendy Pang MD [address] [place] [phone] PCP - General Internal Medicine 02/23/23 documented as of this encounter
--- OUTSIDE RECORDS SUMMARY | 2025-08-05 18:54 | XMS_ITS | Encounter Summary ---
Author Organization [employer] Address [address] [facility] [address] 7t [place] [address] Care Team Providers Care Bookkeeping Teacher Name Role Phone Wendy Pang MD Primary Care Pro vider Reason for Visit * Reason Comments Med Refill Encounter Details Date Type Department Care Team ([facility] st Contact Info) Description 10/26/2024 Refill [facility] MEDICINE 230 [place] [address] Patria Pappas ANP 230 [place] [address] Social History Tobacco Use Types Packs/Day Years [...] Description 09/08/2025 10:00 AM EST Office Visit [facility] MEDICINE [address] [place] [address] Wendy Pang MD [address] [place] [phone] documented as of this encounter Visit Diagnoses Not on filedocumented in this encounter Additional Health Concerns Assessment Noted Time PHQ-9 Depression Total Score: 10 024 1:15 PM EDT documented as of this encounter Care Teams Bookkeeping Teacher Relationship Specialty Start Date End Date Wendy Pang MD [address] [place] [address] [phone] PCP - General Internal Medicine 02/23/23 documented as of this encounter
--- OUTSIDE RECORDS SUMMARY | 2025-08-05 18:54 | XMS_ITS | Encounter Summary ---
Author Organization [employer] Address [address] [facility] [address] 7t [place] [address] Care Team Providers Care Demurrage Worker Name Role Phone Wendy Pang MD Primary Care Pro vider Reason for Visit * Reason Comments Med Refill Encounter Details Date Type Department Care Team (Late st Contact Info) Description 02/18/2025 Refill [facility] 230 [place] [address] Lana Obrien NP 230 [place] [address] Unspecified Eustachian tube disorder, left ear Social [...] Office Visit [facility] MEDICINE [address] [place] [address] Wendy Pang MD [address] [place] [address] documented as of this encounter Visit Diagnoses Diagnosis Unspecified Eustachian tube disorder, left ear documented in this encounter Additional Health Concerns Assessment Noted Time PHQ-9 Depression Total Score: 17 025 9:06 AM EDT documented as of this encounter Care Teams Demurrage Worker Relationship Specialty Start Date End Date Wendy Pang MD [address] [place] [phone] PCP - General Internal Medicine 02/23/23 documented as of this encounter
--- OUTSIDE RECORDS SUMMARY | 2025-08-05 18:54 | XMS_ITS | Encounter Summary ---
Author Organization [employer] Address [address] [facility] 7t [place] [address] Care Team Providers Care Inspector Toys Name Role Phone Wendy Pang MD Primary Care Pro vider Reason for Visit * Reason Comments Med Refill Encounter Details Date Type Department Care Team ([facility] st Contact Info) Description 01/20/2025 Refill [facility] MEDICINE 230 [place] [address] Wendy Pang MD 230 [place] [address] Social History Tobacco Use Types Packs/Day Years [...] 09/08/2025 10:00 AM EST Office Visit [facility] MEDICINE [address] [place] [phone] Wendy Pang MD [address] [place] [address] documented as of this encounter Visit Diagnoses Not on filedocumented in this encounter Additional Health Concerns Assessment Noted Time PHQ-9 Depression Total Score: 17 025 9:06 AM EDT documented as of this encounter Care Teams Inspector Toys Relationship Specialty Start Date End Date Wendy Pang MD [address] [place] [phone] PCP - General Internal Medicine 02/23/23 documented as of this encounter
--- OUTSIDE RECORDS SUMMARY | 2025-08-05 18:54 | XMS_ITS | Encounter Summary ---
Author Organization [employer] Address [address] [facility] [address] 7t [place] [address] Care Team Providers Care Glass Block Installer Name Role Phone Wendy Pang MD Primary Care Pro vider Encounter Details Date Type Department Care Team (Late st Contact Info) Description 06/17/2025 Results Follow-Up [facility] MEDICINE 230 [place] [address] Wendy Pang MD [address] [place] [address] CT TEMPORAL BONE WO CONTRAST Social History [...] Description 09/08/2025 10:00 AM EST Office Visit [facility] MEDICINE [address] [place] [address] Wendy Pang MD 230 [place] [address] documented as of this encounter Visit Diagnoses Not on filedocumented in this encounter Additional Health Concerns Assessment Noted Time PHQ-9 Depression Total Score: 17 11/20/ 025 9:06 AM EDT documented as of this encounter Care Teams Glass Block Installer Relationship Specialty Start Date End Date Wendy Pang MD [address] [place] [phone] PCP - General Internal Medicine 02/23/23 documented as of this encounter
--- OUTSIDE RECORDS SUMMARY | 2025-08-05 18:54 | XMS_ITS | Encounter Summary ---
Author Organization [employer] Address [address] [facility] 7 [place] [address] Care Team Providers Care Airport Screener Name Role Phone Wendy Pang MD Primary Care Pro vider Reason for Visit * Reason Onset Date Comments PT-1 08/04/2024 Encounter Details Date Type Department Care Team ([facility] st Contact Info) Description 08/04/2024 Telephone [facility] MEDICINE 230 [place] [address] Wendy Pang MD 230 [place] [address] PT-1 Social History Tobacco Use Types Packs/Day [...] Description 09/08/2025 10:00 AM EST Office Visit [facility] MEDICINE 230 [place] [address] Wendy Pang MD 230 [place] [address] documented as of this encounter Visit Diagnoses Not on filedocumented in this encounter Additional Health Concerns Assessment Noted Time PHQ-9 Depression Total Score: 10 024 1:15 PM EDT documented as of this encounter Care Teams Airport Screener Relationship Specialty Start Date End Date Wendy Pang MD 230 [place] [address] PCP - General Internal Medicine 02/23/23 documented as of this encounter
--- OUTSIDE RECORDS SUMMARY | 2025-08-05 18:54 | XMS_ITS | Encounter Summary ---
Author Organization [employer] Address [address] [facility] [address] 7[address] [place] [address] Care Team Providers Care Cytology Manager Name Role Phone Wendy Pang MD Primary Care Pro vider Reason for Visit * Reason Comments Med Refill Encounter Details Date Type Department Care Team ([facility] st Contact Info) Description 01/07/[address] [facility] MEDICINE 230 [place] [address] Wendy Pang MD 230 [place] [address] Type 2 diabetes mellitus without complication, without long-term current use of insulin (CMS/[facility]) Social History Tobacco Use Types Packs/Day Years [...] Description 09/08/2025 10:00 AM EST Office [address] [facility] MEDICINE 230 [place] [address] Wendy Pang MD [address] [place] [address] documented as of this encounter Visit Diagnoses Diagnosis Type 2 diabetes mellitus without complication, without long-term current use of insulin (HCC) documented in this encounter Additional Health Concerns Assessment Noted Time PHQ-9 Depression Total Score: 17 025 9:06 AM EDT documented as of this encounter Care Teams Cytology Manager Relationship Specialty Start Date End Date Wendy Pang MD 230 [place] [address] PCP - General Internal Medicine 02/23/23 documented as of this encounter
--- OUTSIDE RECORDS SUMMARY | 2025-08-05 18:54 | XMS_ITS | Encounter Summary ---
Author Organization [employer] Address [address] [facility] 7 [place] [address] Care Team Providers Care Scheduling Manager Name Role Phone Wendy Pang MD Primary Care Pro vider Reason for Visit * Reason Onset Date Comments pt1 12/14/2024 Encounter Details Date Type Department Care Team ([facility] st Contact Info) Description 12/14/2024 Telephone [facility] MEDICINE 230 [place] [address] Wendy Pang MD 230 [place] [address] pt1 Social History Tobacco Use Types Packs/Day [...] Y/N: Yes Provider name or facility name: [facility]. [address] [place] [address] Escort needed: Y/N: Yes Do you have a wheelchair: Y/N: No If yes- Manual or electric: Visits: (5) ( x monthly,) 2- Patient calling requesting PT1 Home Address verified: Y/N: Yes Provider name or facility name: [address] [place] [address] Escort needed: Y/N: Yes Do you have a wheelchair: Y/N: No If yes- Manual or electric: Visits: (5) ( x monthly,) documented in this encounter Plan of Treatment Upcoming Encounters Date Type Department Care Team ([facility] st Contact Info) Description 09/08/2025 10:00 AM EST Office Visit [facility] MEDICINE [address] [place] [address] [phone] Wendy Pang MD 230 [place], [place] [phone] documented as of this encounter Visit Diagnoses Not on filedocumented in this encounter Additional Health Concerns Assessment Noted Time PHQ-9 Depression Total Score: 17 11/20/ 025 9:06 AM EDT documented as of this encounter Care Teams Scheduling Manager Relationship Specialty Start Date End Date Wendy Pang MD [address] [place] [phone] PCP - General Internal Medicine 02/23/23 documented as of this encounter
--- OUTSIDE RECORDS SUMMARY | 2025-08-05 18:54 | XMS_ITS | Encounter Summary ---
Author Organization [employer] Address [address] [facility] 7 [place] [address] Care Team Providers Care Log Deck Tender Name Role Phone Wendy Pang MD Primary Care Pro vider Reason for Visit * Reason Onset Date Comments pt1 07/14/2025 Encounter Details Date Type Department Care Team ([facility] st Contact Info) Description 07/14/2025 Telephone [facility] MEDICINE 230 [place] [address] Wendy Pang MD 230 [place] [address] pt1 Social History Tobacco Use Types Packs/Day [...] encounter Miscellaneous Notes * Telephone Encounter - Nawaf Rose - 07/14/2025 1:16 PM EST Patient calling requesting PT1 Home Address verified: Y/N: Yes Provider name or facility name: [address] [place] [address] Escort needed: Y/N: No Do you have a wheelchair: Y/N: No If yes- Manual or electric: Visits: 3x documented in this encounter Plan of Treatment Upcoming Encounters Date Type Department Care Team (Late st Contact Info) Description 09/08/2025 10:00 AM EST Office Visit [facility] MEDICINE [address] [place] [address] Wendy Pang MD [address] [place] [phone] documented as of this encounter Visit Diagnoses Not on filedocumented in this encounter Additional Health Concerns Assessment Noted Time PHQ-9 Depression Total Score: 17 025 9:06 AM EDT documented as of this encounter Care Teams Log Deck Tender Relationship Specialty Start Date End Date Wendy Pang MD [address] [place] [phone] PCP - General Internal Medicine 02/23/23 documented as of this encounter
--- OUTSIDE RECORDS SUMMARY | 2025-08-05 18:54 | XMS_ITS | Encounter Summary ---
Author Organization [employer] Address [address] [facility] 7t [place] [address] Care Team Providers Care Chemist Biological Name Role Phone Wendy Pang MD Primary Care Pro vider Reason for Visit * Reason Comments Med Refill Encounter Details Date Type Department Care Team ([facility] st Contact Info) Description 06/09/2025 Refill [facility] [address] [place] [address] Wendy Pang MD [address] [place] [address] Social History Tobacco Use Types Packs/Day Years [...] Description 09/08/2025 10:00 AM EST Office Visit [facility] MED[facility]INE [address] [place] [address] Wendy Pang MD [address] [place] [address] documented as of this encounter Visit Diagnoses Not on filedocumented in this encounter Additional Health Concerns Assessment Noted Time PHQ-9 Depression Total Score: 17 025 9:06 AM EDT documented as of this encounter Care Teams Chemist Biological Relationship Specialty Start Date End Date Wendy Pang MD [address] [place] [phone] PCP - General Internal Medicine 02/23/23 documented as of this encounter
== END 2025-08-05 15:20 | disposition home or self-care (01) ==
LOC: HO.HPODS 14:47
PROVIDERS: PCP Student in an Organized Health Care Education/Training Program; Visit Provider Student in an Organized Health Care Education/Training Program
DX: M79.671 Pain in right foot (principal); M79.672 Pain in left foot; M77.50 Other enthesopathy of unspecified foot and ankle; M19.071 Primary osteoarthritis, right ankle and foot; M19.072 Primary osteoarthritis, left ankle and foot
CPT/HCPCS: 99204

== ENCOUNTER → 2025-08-05 14:46 | Outpatient (BNVA) | payer MEDICAID, SELFPAY | PROVIDERS: PCP Student in an Organized Health Care Education/Training Program; Visit Provider Student in an Organized Health Care Education/Training Program | DX: M19.071 Primary osteoarthritis, right ankle and foot (principal); E11.9 Type 2 diabetes mellitus without complications; M19.072 Primary osteoarthritis, left ankle and foot; M77.50 Other enthesopathy of unspecified foot and ankle | CPT/HCPCS: 99202 ==

== ENCOUNTER 2025-08-09 12:25 | Outpatient (REF) | payer MEDICAID, SELFPAY ==
--- NOTE | ~2025-08-09 | XR_ITS ---
Exam: XR FOOT 3 OR MORE VIEWS BILATERAL, bilateral foot x-rays TECHNIQUE: AP, OBL and lateral views lower extremity, bilateral feet INDICATION: M79.671 - Pain in right foot COMPARISON: [X-ray December 21, 2022 FINDINGS: RIGHT FOOT: Marginal osteophyte is noted involving the tibial plafond and. There are enthesophytes involving the calcaneus at the plantar fascia and Achilles tendon insertion. No other abnormalities are evident. LEFT FOOT: There is a moderate-sized enthesophyte at the plantar fascial attachment on calcaneus and minute enthesophyte at the Achilles tendon insertion. The appearance is similar to the prior. No other abnormalities are evident. XR/XR Foot Vasiliy 3V IMPRESSION: Right foot: Calcaneal spurs Left foot: Calcaneal spurs. Electronically signed by: Brice Pate MD 08/09/2025 02:58 PM [facility]
--- OUTSIDE RECORDS SUMMARY | 2025-08-09 15:36 | XMS_ITS | Patient Health Record ---
Author Organization [facility] Address [address] [place] [address] Care Team Providers Care Prekindergarten Teacher Name Role Phone Michael Muller Primary Care [...] Status W/U Status Risk Notes Problem Cervicalgia (97395640) Cervicalgia (M54.2) Active confirmed Problem Morbid obesity (disorder) (020581480) Morbid (severe) obesity due to excess calories (E66.01) Active confirmed Problem Acquired hypothyroidism (998547161) Acquired hypothyroidism (E03.9) Active confirmed Problem Hyperlipidaemia (62970935) Hyperlipidemia, unspecified hyperlipidemia type (E78.5) Active confirmed Problem Type II diabetes mellitus without complication (714130674) Type 2 diabetes mellitus without complication, without long-term current use of insulin (E11.9) Active confirmed Problem Dysphagia (80122653) Dysphagia, unspecified type (R13.10) Active confirmed Problem Mixed anxiety and depressive disorder (888704864) Depression with anxiety (F41.8) Active confirmed Problem Sleep apnea (55866136) Sleep apnea, unspecified type (G47.30) Active confirmed Problem History of asthma (360765986) History of asthma (Z87.09) Active confirmed Problem Pruritic disorders (005101164) Ear itch (L29.9) Active confirmed Problem Sleep apnea (disorder) (50407008) History of sleep apnea (Z86.69) Active confirmed Problem Body mass index 40+ - severely obese (381660850) Body mass index [BMI] 40.0-44.9, adult (Z68.41) [...] End Date HUSKY A [address] [place], [place] [id number] Jocelin Talley Self - patient is the insured DENTAL Medicaid HP [address] [place] [id number] Jocelin Talley Self - patient is the insured Medical (General) History Surgical History Surgery Date(Month/Year) c section x 3 bilat tubal Hospitalization History Reason Date(Month/Year) see surgical
--- OUTSIDE RECORDS SUMMARY | 2025-08-09 15:36 | XMS_ITS | Clinical Summary ---
Author Organization [employer] Address [address] [facility] [address] 7[address] [place] [address] Care Team Providers Care Wallpaper Printer Helper Name Role Phone Wendy Pang MD [...] BY MOUTH EVERY DAY 90 tablet 3 08/06/2025 3:19 PM EST 5 Active polyvinyl alcohol (Liquifilm Tears) 1.4 % ophthalmic solutionIndicatio ns:Dry eyes, bilateral Administer 1 drop into both eyes if needed for dry eyes. 15 mL 5 5 Active Tirzepatide-Weigh t Management (Zepbound) 15 MG/0.5ML solution auto-injector Inject 0.5 mL (15 mg) under the skin 1 (one) time per week. 6 mL 3 08/06/2025 3:20 PM EST 5 03/16/20 26 Active levothyroxine (Synthroid, [...] within 12 hours or as directed by . 30 patch 3 08/06/2025 3:19 PM EST Active ammonium lactate (Lac-Hydrin) 12 % lotion Apply topically at noon and in the evening. 225 g 2 5 05/28/20 Active DULoxetine (Cymbalta) [address] capsuleIndication s:PTSD (post-traumatic stress disorder) TAKE 1 CAPSULE BY MOUTH TWICE DAILY IN THE MORNING AND IN THE EVENING DO NOT BREAK, CRUSH, DISSOLVE OR CHEW 60 capsule 2 08/06/2025 3:20 PM EST Active pregabalin (Lyrica) 150 MG capsuleIndication s:Polyarthralgia Take 1 capsule (150 mg) by mouth 2 times daily. Do not start before June 09, 2025. 60 capsule 2 08/06/2025 3:19 PM EST 5 09/06/19 Active melatonin 5 MG tablet Take 1 tablet (5 mg) by mouth at bedtime. 90 tablet 5 06/07/20 Active ezetimibe (Zetia) 10 MG tablet Take 1 tablet (10 mg) by mouth Once per day. 90 tablet 5 06/07/20 Active montelukast (Singulair) 10 MG tablet Take 1 tablet (10 mg) by mouth Once per day. 90 tablet 5 06/18/20 Active albuterol 108 (90 Base) MCG/ACT inhalerIndication s:Mild intermittent asthma without complication Inhale 2 puffs every 4 (four) hours if needed for wheezing. 18 g 5 06/29/20 Active cetirizine (ZyrTEC) 10 MG tablet TAKE 1 TABLET BY MOUTH EVERY EVENING 90 tablet 07/08/2025 10:06 AM EST Active Active Problems Problem Noted Date Diagnosed [...] of migraines, was receiving a medication from [place], not sure of the name Will start [...] (Eric Ruff) and has a therapist in [place] (agency unknown). Pt will continue current MH [...] (Eric Ruff) and has a therapist in [place] (agency unknown). Pt will continue current treatment [...] organization. Date Type Department Care Team Description 08/09/2025 Orders Only [facility] External Provider, [facility] 07/14/2025 Patient Outreach [address] [address] Wendy Pang MD Care Coordination (W outreach for SDOH housing search-referral completed ) 07/14/[address] [address] Wendy Pang MD pt1 07/02/[address] [address] Wendy Pang MD 06/29/2025 4:20 PM EST Office Visit [facility] [address] [place] [address] Anita Oliva MD Mild intermittent asthma without complication (Primary Dx); Cough, unspecified type 06/25/[address] [address] Wendy Pang MD Call Back Request 06/18/2025 Orders Only [facility] [address] [place] [address] Wendy Pang MD 06/18/2025 Orders Only [address] [address] Wendy Pang MD Pulsatile tinnitus of both ears (Primary Dx) 06/17/2025 Results Follow-Up [address] TEMPORAL BONE WO CONTRAST 06/09/[address] [address] Wendy Pang MD Jimbo recall 06/09/[address] [address] Wendy Pang MD 06/07/[address] [address] Wendy Pang MD 06/02/2025 Refill [facility] [address] [place], [place] [phone] Wendy Pang MD PTSD (post-traumatic stress disorder); Polyarthralgia 05/28/2025 1:15 PM EDT Office Visit [address] [address] Wendy Pang MD Leg mass, left (Primary [...] Left foot pain 05/28/2025 Travel 05/27/2025 Telephone [facility] [address] [place] [address] Wendy Pang MD chart prep 05/21/2025 Patient Outreach [facility] [address] [place], [place] [phone] Wendy Pang MD Pre-visit Planning (SDOH was already completed) 05/19/2025 Results Follow-Up [facility] [address] [place] [address] Wendy Pang MD Comprehensive Metabolic Panel, Lipid Panel, Standard, Creatine Kinase, Total 05/19/2025 Orders Only [facility] External Provider, [facility] 05/19/2025 Travel 05/18/2025 Telephone [facility] [address] [place] [address] Wendy Pang MD 05/11/2025 Refill [facility] [address] [place] [address] Wendy Pang MD from Last 3 Months [...] Description 09/08/2025 10:00 AM EST Office Visit [facility] [address] [place] [address] Wendy Pang MD [address] [place], [place] [phone] Health Maintenance Due Date Last Done Comments [...] Name Priority Date/Time Associated Diagnosis Comments XR FOOT 3+ VIEWS BILATERAL Routine 08/09/2025 12:[address] TEMPORAL BONE WO CONTRAST Routine 06/17/2025 [...] Relevant to Health Maintenance Results * XR Foot 3+ Views Bilateral (08/09/2025 12:45 PM EST) Anatomical Region Laterality Modality Lower Extremities, Foot Bilateral Radiogra phic Imaging 08/09/2025 12:4 5 PM EST Narrative 08/09/2025 3:01 PM EST [address] [address] XRay Report Signed Patient: Jocelin Auguste Carlos#: [id number] : 1970 Acct:[id number] Age/Sex: 55 / F ADM Date: 08/09/25 Loc: [facility] Attending Dr: Roxana Bautista DPM Ordering Physician: Roxana Bautista DPM Date of Service: 08/09/25 Procedure(s): XR Foot Vasiliy 3V Accession Number(s): [id number] cc: Wnedy Pang MD; Roxana Bautista DPM Reason for Exam: M79.671 - Pain in right foot Exam: XR FOOT 3 OR MORE VIEWS BILATERAL, bilateral foot x-rays TECHNIQUE: AP, OBL and lateral views lower extremity, bilateral feet INDICATION: M79.671 - Pain in right foot COMPARISON: [X-ray December 21, 2022 FINDINGS: RIGHT FOOT: Marginal osteophyte is noted involving the tibial plafond and. There are enthesophytes involving the calcaneus at the plantar fascia and Achilles tendon insertion. No other abnormalities are evident. LEFT FOOT: There is a moderate-sized enthesophyte at the plantar fascial attachment on calcaneus and minute enthesophyte at the Achilles tendon insertion. The appearance is similar to the prior. No other abnormalities are evident. XR/XR Foot Vasiliy 3V IMPRESSION: Right foot: Calcaneal spurs Left foot: Calcaneal spurs. Electronically signed by: Brice Pate MD 08/09/2025 02:58 PM [facility] Dictated By: Brice Pate MD Signed By: <Electronically signed by Brice Pate MD in OV> 08/09/25 1458 DD/ 1245 TD/TT: 08/09/25 1252 Creeler: Procedure Note Donotuseinterpreter, Image - 08/09/[address] [address] XRay Report Signed Patient: Jo Auguste R#: [id number] : 1970Acct:[id number] Age/Sex: 55 / FADM Date: 08/09/25 Loc: KEYSHA Attending Dr: Roxana Bautista DPM Ordering Physician: Roxana Bautista DPM Date of Service: 08/09/25 Procedure(s): XR Foot Vasiliy 3V Accession Number(s): [id number] cc: Wendy Pang MD; Roxana Bautista DPM Reason for Exam: M79.671 - Pain in right foot Exam: XR FOOT 3 OR MORE VIEWS BILATERAL, bilateral foot x-rays TECHNIQUE: AP, OBL and lateral views lower extremity, bilateral feet INDICATION: M79.671 - Pain in right foot COMPARISON: [X-ray December 21, 2022 FINDINGS: RIGHT FOOT: Marginal osteophyte is noted involving the tibial plafond and. There are enthesophytes involving the calcaneus at the plantar fascia and Achilles tendon insertion. No other abnormalities are evident. LEFT FOOT: There is a moderate-sized enthesophyte at the plantar fascial attachment on calcaneus and minute enthesophyte at the Achilles tendon insertion. The appearance is similar to the prior. No other abnormalities are evident. XR/XR Foot Vasiliy 3V IMPRESSION: Right foot: Calcaneal spurs Left foot: Calcaneal spurs. Electronically signed by: Brice Pate MD 08/09/2025 02:58 PM [facility] Dictated By: Brice Pate MD Signed By: <Electronically signed by Brice Pate MD in OV> 08/09/25 1458 DD/ 1245 TD/TT: 08/09/25 1252 Creeler: [facility] External Provider IMG XR PROCEDURES Edited Result - Final * CT TEMPORAL BONE WO CONTRAST (06/17/2025 9:16 AM EDT) Anatomical Region Laterality Modality Body, Abdomen Computed Tomogra phy 06/17/2025 9:16 AM EDT Narrative 06/17/2025 10:24 AM EDT [address] [address] [address] Scan Report Signed Patient: Jocelin Auguste Carlos#: [id number] : 1970 Acct:[id number] Age/Sex: 55 / F ADM Date: 06/17/25 Loc: HO.CT Attending Dr: Wendy Vance MD Ordering Physician: Wendy Pang MD Date of Service: 06/17/25 Procedure(s): CT mastoid Accession Number(s): [id number] cc: Wendy Pang MD Report Number: [id number]: Total DLP = 148.00 mGy-cm Reason for [...] 06/17/25 1021 DD/ 0916 TD/TT: 06/17/25 0943 Creeler: Procedure Note Donotuseinterpreter, Image - 06/17/[address] [place] [address] [address] Scan Report Signed Patient: Jo Auguste R#: [id number] : 1970Acct:[id number] Age/Sex: 55 / FADM Date: 06/17/25 Loc: HO.CT Attending Dr: Wendy Vance MD Ordering Physician: Wendy Pang MD Date of Service: 06/17/25 Procedure(s): CT mastoid Accession Number(s): [id number] cc: Wendy Pang MD Report Number: [id number]: Total DLP = 148.00 mGy-cm Reason for [...] 06/17/25 1021 DD/ 0916 TD/TT: 06/17/25 0943 Creeler: Wendy Vance MD IMG CT PROCEDURES Edited Result - Final * XR Knee 3 Views Left (05/20/2025 10:58 AM EDT) Anatomical Region Laterality Modality Lower Extremities, Knee Left Radiogra phic Imaging 05/20/2025 10:5 8 AM EDT Narrative 05/20/2025 11:10 AM EDT [facility] [address] [place] [address] XRay Report Signed Patient: Jocelin Auguste#: [id number] : 1970 Acct:[id number] Age/Sex: 54 / F ADM Date: 05/20/25 [facility]: Cullen Hunter MD Ordering Physician: Cullen Hunter MD Date of Service: 05/20/25 Procedure(s): XR knee LT 3V Accession Number(s): [id number] cc: Wendy Pang MD; Cullen Hunter MD [...] 05/20/25 1107 DD/ 1058 TD/TT: 05/20/25 1100 Creeler: Procedure Note Syed, Image - 05/20/2025 [facility] [address] [place] [address] XRay Report Signed Patient: Jo Auguste R#: [id number] : 1970Acct:[id number] Age/Sex: 54 / FADM Date: 05/20/25 Loc: HO.HOSX Attending Dr: Cullen Hunter MD Ordering Physician: Cullen Hunter MD Date of Service: 05/20/25 Procedure(s): XR knee LT 3V Accession Number(s): [id number] cc: Wendy Pang MD; Cullen Hunter MD [...] by Jose Palacios MD in OV> 05/20/25 110 DD/ 1058 TD/TT: 05/20/25 1100 Creeler: [facility] External Provider IMG XR PROCEDURES Edited Result - Final * XR CERVICAL SPINE 4V (05/19/2025 9:02 AM EDT) Anatomical Region Laterality Modality Abdomen Radiographic Jeanine ging 05/19/2025 9:02 AM EDT Narrative 05/19/2025 9:42 AM EDT [facility] [address] [place] [address] XRay Report Signed Patient: Jocelin Auguste#: [id number] : 1970 Acct:[id number] Age/Sex: 54 / F ADM Date: 05/19/25 Loc: HO.HHCX Attending Dr: Cullen Hunter MD Ordering Physician: Cullen Hunter MD Date of Service: 05/19/25 Procedure(s): XR cervical spine 4V Accession Number(s): [id number] cc: Wendy Pang MD; Cullen Hunter MD [...] OV> 05/19/25 0939 DD/ 1 TD/TT: 05/19/25 09 Creeler: Procedure Note Donotuseinterpreter, Image - 05/19/2025 [facility] [address] [place] [address] XRay Report Signed Patient: Jo Auguste R#: [id number] : 1970Acct:[id number] Age/Sex: 54 / FADM Date: 05/19/25 Loc: HO.HHX Attending Dr: Cullen Hunter MD Ordering Physician: Cullen Hunter MD Date of Service: 05/19/25 Procedure(s): XR cervical spine 4V Accession Number(s): [id number] cc: Wendy Pang MD; Cullen Hunter MD [...] MD in OV> 05/19/2539 DD/ 1 TD/TT: 05/19/25 09 Creeler: [facility] External Provider IMG XR PROCEDURES Final Result * Creatine Kinase, Total (05/19/2025 8:54 AM EDT) Creatine Kinase Total 110 26 - 140 U/L [facility] Blood Venous blood specimen / Unknown 05/19/2025 8:54 AM EDT 05/19/2025 11:04 AM EDT us Wendy Vance MD LAB BLOOD ORDERAB LES Final Result Performing Organization Address [facility]/ZIP Co de Phone Number [facility] [address] [place] [address] [phone] * (ABNORMAL) Lipid Panel, Standard (05/19/2025 8:54 AM EDT) Triglycerides 127 <150 mg/dL [facility] Comment:Desirable Triglyceri de: less than 150 mg/dLBorderline High Triglyceride 150-199 mg/dLHigh Triglyceride: 200-499 mg/dLVery High Triglyceride: greater than or equal to 5OO mg/dL Cholesterol 183 <200 mg/dL [facility] Comment:Desirable Cholestero l: less than 200 mg/dLBorderline High Cholesterol: 200-239 mg/dLHigh Cholesterol: greater than 239 mg/dL LDL Cholesterol Calculated 118(H) <100 mg/dL [facility] Comment:Desirable LDL: less than 100 mg/dLNear Optimal/Above Optimal LDL: 110- 129 mg/dLBorderline High LDL: 130-159 mg/dLHigh LDL: 160-189 mg/dLVery High LDL: greater than or equal to 190 mg/dL HDL Cholesterol 40(L) >40 mg/dL [facility] Comment:Desirable HDL: great er than 40 mg/dL Note: This HDL assay may give artificially low results in patients with liver disease. Blood Venous blood specimen / Unknown 05/19/2025 8:54 AM EDT 05/19/2025 11:04 AM EDT us Wendy Vance MD LAB BLOOD ORDERAB LES Final Result Performing Organization Address City/[facility]/ZIP Co de Phone Number [facility] [address] [place] [address] [phone] * (ABNORMAL) Comprehensive Metabolic Panel (05/19/2025 8:54 AM EDT) Sodium 144 135 - 145 mmol/L [facility] Potassium 3.8 3.3 - 5.1 mmol/L [facility] Chloride 109(H) 96 - 108 mmol/L [facility] Carbon Dioxide 27 22 - 29 mmol/L [facility] Anion Gap 12 12 - 20 [facility] Urea Nitrogen (BUN) 21(H) 9 - 16 mg/dL [facility] Creatinine, Serum 0.66 0.5 - 1.4 mg/dL [facility] Estimated Glomerular Filt Rate >60 [facility] Comment:Chronic Kidney Disea se: Estimated GFR < 60 mL/min/1.25v8Gdbdse Kidney Disease: Estimated GFR < 15 mL/min/1.73m2 Glucose 85 60 - 115 mg/dL [facility] Calcium 9.4 8.4 - 10.2 mg/dL [facility] Bilirubin, Total 0.2 0.0 - 1.0 mg/dL [facility] Aspartate Amino Transferase 33(H) 5 - 31 U/L [facility] Alanine Aminotransferase 34(H) 0 - 31 U/L [facility] Total Protein 7.9 6.5 - 8.0 g/dL [facility] Albumin Level 4.5 3.5 - 5.0 g/dL [facility] Alkaline Phosphatase 69 39 - 117 U/L [facility] Blood Venous blood specimen / Unknown 05/19/2025 8:54 AM EDT 05/19/2025 11:04 AM EDT us Wendy Vance MD LAB BLOOD ORDERAB LES Final Result [facility] [address] [place] [phone] * Referral to Sleep Medicine (05/12/2025) [...] AM EDT Narrative 03/15/2025 10:34 AM EDT [address] [place] [address] Mammography Report Signed Patient: Jocelin Auguste R#: [id number] : 1970 Acct:[id number] Age/Sex: 54 / F ADM Date: 03/04/25 Loc: MAMMBruno Attending Dr: Wendy Vance MD Ordering Physician: Wendy Pang MD Re sults: 1Negative Date of Service: 03/04/25 Follow Up: 1 Year From Orig inal Mammogram Procedure(s): MM tomosynthesis screening BI Accession Number(s): [id number] cc: Wendy Pang MD EXAMINATION: MM SCREENING [...] 03/15/25 1031 DD/ 0926 TD/TT: 03/04/25 0949 Creeler: Procedure Note Donotuseinterpreter, Image - 03/15/2025 [facility] [address] [place] [address] Mammography Report Signed Patient: Jo Auguste R#: [id number] : 1970Acct:[id number] Age/Sex: 54 / FADM Date: 03/04/25 Loc: HO.MAMMO Attending Dr: Wendy Vance MD Ordering Physician: Wendy Pang sults: 1Negative Date of Service: 03/04/25Follow Up: 1 Year From Orig inal Mammogram Procedure(s): MM tomosynthesis screening BI Accession Number(s): [id number] cc: Wendy Pang MD EXAMINATION: MM SCREENING [...] 03/15/25 1031 DD/ 0926 TD/TT: 03/04/25 0949 Creeler: us Wendy Vance MD IMG BI PROCEDURES Final Result * HM PAP/HPV (01/04/2025 9:22 AM EDT) Only the most recent of2 resultswithin the time period is included. Historical Provider HEALTH MAINTENANCE Final Result * Albumin, Random Urine W/Creatinine (06/12/2024 11:40 AM EDT) Creatinine, Urine 195.62 mg/dL [facility] Microalbumin Urine 41.0 mg/L [facility] Microalbum Creatinine Ratio Ur 20.9 <30 ug/mg cr [facility] Comment:Albumin/Creatinine R atio Reference Ranges: Normal: < 30 ug/mg creatinine Microalbuminuria: 30 - 300 ug/mg creatinineClinical Albuminuria: > 300 ug/mg creatinine Urine (Urine, Random) 06/12/2024 11:40 AM EDT 06/12/2024 1:08 PM EDT Wendy Vance MD LAB URINE ORDERAB LES Final Result [facility] [address] [place] [phone] * Hepatitis C Antibody with Reflex to HCV, RNA, Quantitative, Real-Time PCR (06/12/2024 11:39 AM EDT) Hepatitis C Antibody Nonreactive Nonreactive [facility] Comment:Antibodies to HCV no t detected; does not exclude early acuteHCV infection. Blood Venous blood specimen / Unknown 06/12/2024 11:39 AM EDT 06/12/2024 1:19 PM EDT Wendy Vance MD LAB BLOOD ORDERAB LES Final Result Performing Organization Address City/[facility]/ZIP Co de Phone Number [facility] [address] [place] [address] [phone] * HIV-1/2 Antigen and Antibodies, Fourth Generation, with Reflexes (06/12/2024 11:39 AM EDT) HIV AB/AG Nonreactive Nonreactive [facility] Comment:HIV-1 p24 Ag and/or HIV-1/HIV-2 Ab not detected.A test result that is nonreactive does not exclude thepossibility of exposure to or infection with HIV-1 and/orHIV-2. Nonreactive results in this assay for individualswith prior exposure to HIV-1 and/or HIV-2 may be due toantigen and antibody levels that are below the limit ofdetection of this assay.The [employer] HIV Ag/Ab Combo assay result andsupplemental assay results should be interpreted inconjunction with the patient's clinical presentation,history and other laboratory results. If the results areinconsistent with clinical evidence, additional testing issuggested to confirm the result. Blood Venous blood specimen / Unknown 06/12/2024 11:39 AM EDT 06/12/2024 1:19 PM EDT Wendy Vance MD LAB BLOOD ORDERAB LES Final Result Performing Organization Address [facility]/ZIP Co de Phone Number [facility] [address] [place] [address] [phone] * Colposcopy (02/11/2024 9:20 AM EDT) us Historical Provider IN CLINIC/BEDSIDE ORDERAB LES Edited Result - Final from Last 3 Months or Most Recently Relevant to Health Maintenance Insurance C3 Care Teams Wallpaper Printer Helper Relationship Specialty Start Date End Date Wendy Pang MD [address] [place] [address] PCP - General Internal Medicine 02/23/23
--- OUTSIDE RECORDS SUMMARY | 2025-08-09 15:36 | XMS_ITS | Encounter Summary ---
Author Organization [employer] Address [address] [place] [address] Care Team Providers Care Electrical Continuity Inspector Name Role Phone Wendy Pang MD Primary Care Pro vider Encounter Details Date Type Department Care Team (Late st Contact Info) Description 06/17/2025 Results Follow-Up [facility] [address] [place] [address] Wendy Pang MD [address] [place] [address] CT TEMPORAL BONE WO CONTRAST Social History [...] Description 09/08/2025 10:00 AM EST Office Visit [facility] [address] [place] [phone] Wendy Pang MD [address] [place] [address] documented as of this encounter Visit Diagnoses Not on filedocumented in this encounter Additional Health Concerns Assessment Noted Time PHQ-9 Depression Total Score: 17 11/20/ 025 9:06 AM EDT documented as of this encounter Care Teams Electrical Continuity Inspector Relationship Specialty Start Date End Date Wendy Pang MD [address] [place] [phone] PCP - General Internal Medicine 02/23/23 documented as of this encounter
--- OUTSIDE RECORDS SUMMARY | 2025-08-09 15:37 | XMS_ITS | Encounter Summary ---
Author Organization [employer] Address 75 [facility] 7 [place] [address] Care Team Providers Care Psychological Science Professor Name Role Phone Wendy Pang MD Primary Care Pro vider Reason for Visit * Reason Onset Date Comments PT-1 08/04/2024 Encounter Details Date Type Department Care Team ([facility] st Contact Info) Description 08/04/2024 Telephone [facility] MEDICINE [address] [place] [address] Wendy Pang MD [address] [place] [address] PT-1 Social History Tobacco Use Types Packs/Day [...] with others, in a hotel, in a penitentiary, living outside on the street, on a [...] EST Office Visit [facility] [address] [place] [address] Wendy Pang MD [address] [place] [address] documented as of this encounter Visit Diagnoses Not on filedocumented in this encounter Additional Health Concerns Assessment Noted Time PHQ-9 Depression Total Score: 10 024 1:15 PM EDT documented as of this encounter Care Teams Psychological Science Professor Relationship Specialty Start Date End Date Wendy Pang MD [address] [place] [address] PCP - General Internal Medicine 02/23/23 documented as of this encounter
--- OUTSIDE RECORDS SUMMARY | 2025-08-09 15:37 | XMS_ITS | Encounter Summary ---
Author Organization [employer] Address 75 [facility] 7 [place] [address] Care Team Providers Care Street Cleaner Name Role Phone Wendy Pang MD Primary Care Pro vider Reason for Visit * Reason Onset Date Comments Med Refill 07/13/2024 Encounter Details Date Type Department Care Team ([facility] st Contact Info) Description 07/13/2024 Telephone [facility] MEDICINE 230 [place] [address] Wendy Pang MD 230 [place] [address] Med Refill Social History Tobacco Use Types [...] 11:39 AM EST Medication was sent to [facility] on 06/16/24 0.25 mg dose and 0.5 mg. * Telephone Encounter - Chad Kim - 07/13/2024 11:18 AM EST TC from pt requesting medication refill. Medications needing refill: Semaglutide-Weight Management (Wegovy) 0.25 MG/0.5ML solution auto-injector To be sent to: [facility] [place], [place] - [address] [place] [address] documented in this encounter Plan of Treatment Upcoming Encounters Date Type Department Care Team ([facility] st Contact Info) Description 09/08/2025 10:00 AM EST Office Visit [facility] MEDICINE [address] [place] [address] Wendy Pang MD [address] [place] [address] documented as of this encounter Visit Diagnoses Not on filedocumented in this encounter Additional Health Concerns Assessment Noted Time PHQ-9 Depression Total Score: 10 024 1:15 PM EDT documented as of this encounter Care Teams Street Cleaner Relationship Specialty Start Date End Date Wendy Pang MD [address] [place] [phone] PCP - General Internal Medicine 02/23/23 documented as of this encounter
--- OUTSIDE RECORDS SUMMARY | 2025-08-09 15:37 | XMS_ITS | Encounter Summary ---
Author Organization [employer] Address 75 [facility] 7t [place] [address] Care Team Providers Care International Manager Name Role Phone Wendy Pang MD Primary Care Pro vider Reason for Visit * Reason Comments Med Refill Encounter Details Date Type Department Care Team ([facility] st Contact Info) Description 03/12/2025 Refill [facility] MEDICINE 230 [place] [address] Wendy Pang MD 230 [place] [address] Polyarthralgia Social History Tobacco Use Types Packs/Day [...] 09/08/2025 10:00 AM EST Office Visit [facility] MEDICINE [address] [place] [address] Wendy Pang MD [address] [place] [address] documented as of this encounter Visit Diagnoses Diagnosis Polyarthralgia Pain in joint, multiple sites documented in this encounter Additional Health Concerns Assessment Noted Time PHQ-9 Depression Total Score: 17 025 9:06 AM EDT documented as of this encounter Care Teams International Manager Relationship Specialty Start Date End Date Wendy Pang MD [address] [place] [address] PCP - General Internal Medicine 02/23/23 documented as of this encounter
--- OUTSIDE RECORDS SUMMARY | 2025-08-09 15:37 | XMS_ITS | Encounter Summary ---
Author Organization [employer] Address 75 [facility] 7 [place] [address] Care Team Providers Care Commercial Sales Manager Name Role Phone Wendy Pang MD Primary Care Pro vider Reason for Visit * Reason Onset Date Comments Accamodation Letter 06/25/2024 Encounter Details Date Type Department Care Team ([facility] st Contact Info) Description 06/25/2024 Telephone [facility]INE 230 [place] [address] Wendy Pang MD 230 [place] [address] Accamodation Letter Social History Tobacco Use Types [...] any questions you can contact pt at [phone]. (Nauruan Speaker) documented in this encounter Plan of Treatment Upcoming Encounters Date Type Department Care Team (Late st Contact Info) Description 09/08/2025 10:00 AM EST Office Visit [facility] [address] [place], [place] [phone] Wendy Pang MD 230 [place], [place] [phone] documented as of this encounter Visit Diagnoses Not on filedocumented in this encounter Additional Health Concerns Assessment Noted Time PHQ-9 Depression Total Score: 10 024 1:15 PM EDT documented as of this encounter Care Teams Commercial Sales Manager Relationship Specialty Start Date End Date Wendy Pang MD 230 [place], [place] [phone] PCP - General Internal Medicine 02/23/23 documented as of this encounter
--- OUTSIDE RECORDS SUMMARY | 2025-08-09 15:37 | XMS_ITS | Encounter Summary ---
Author Organization [employer] Address [address] [facility] [address] 7t [place] [address] Care Team Providers Care Production Posting Clerk Name Role Phone Wendy Pang MD Primary Care Pro vider Encounter Details Date Type Department Care Team (Late st Contact Info) Description 08/09/2025 Orders Only [facility] External Provider, [facility] Social History Tobacco Use Types Packs/Day [...] 10:00 AM EST Office Visit [facility] MEDICINE 230 [place], [place] [phone] Wendy Pang MD 230 [place], [place] [phone] documented as of this encounter Procedures Procedure Name Priority Date/Time Associated Diagnosis Comments XR FOOT 3+ VIEWS BILATERAL Routine 08/09/2025 12:45 PM EST documented in this encounter Results * XR Foot 3+ Views Bilateral (08/09/2025 12:45 PM EST) Anatomical Region Laterality Modality Lower Extremities, Foot Bilateral Radiogra phic Imaging 08/09/2025 12:4 5 PM EST Narrative 08/09/2025 3:01 PM EST [address] [address] XRay Report Signed Patient: Jocelin Auguste R#: [id number] : 1970 Acct:[id number] Age/Sex: 55 / F ADM Date: 08/09/25 Loc: [facility] Attending Dr: Roxana Bautista DPM Ordering Physician: Roxana Bautista DPM Date of Service: 08/09/25 Procedure(s): XR Foot Vasiliy 3V Accession Number(s): [id number] cc: Wendy Pang MD; Roxana Bautista DPM [...] by: Brice Pate MD 08/09/2025 02:58 PM [facility]ictated By: Brice Pate MD Signed By: <Electronically signed by Brice Pate MD in OV> 08/09/25 1458 DD/ 1245 TD/TT: 08/09/25 1252 Corporate Accounting Manager: Procedure Note Donotuseinterpreter, Image - 08/09/[address] [address] XRay Report Signed Patient: Jo Auguste R#: [id number] : 1970Acct:[id number] Age/Sex: 55 / FADM Date: 08/09/25 Loc: [facility] Attending Dr: Roxana Bautista DPM Ordering Physician: Roxana Bautista DPM Date of Service: 08/09/25 Procedure(s): XR Foot Vasiliy 3V Accession Number(s): [id number] cc: Wendy Pang MD; Roxana Bautista DPM [...] by: Brice Pate MD 08/09/2025 02:58 PM EST Dictated By: Brice Pate MD Signed By: <Electronically signed by Brice Pate MD in OV> 08/09/25 1458 DD/ 1245 TD/TT: 08/09/25 1252 Corporate Accounting Manager: [facility] External Provider IMG XR PROCEDURES Edited Result - Final documented in this encounter Visit Diagnoses Not on filedocumented in this encounter Additional Health Concerns Assessment Noted Time PHQ-9 Depression Total Score: 17 11/20/ 025 9:06 AM EDT documented as of this encounter Care Teams Production Posting Clerk Relationship Specialty Start Date End Date Wendy Pang MD [address] [place] [phone] PCP - General Internal Medicine 02/23/23 documented as of this encounter
--- OUTSIDE RECORDS SUMMARY | 2025-08-09 15:37 | XMS_ITS | Encounter Summary ---
Author Organization [employer] Address 75 [facility] 7 [place] [address] Care Team Providers Care Concrete Smoother Name Role Phone Wendy Pang MD Primary Care Pro vider Reason for Visit * Reason Onset Date Comments pt1 07/14/2025 Encounter Details Date Type Department Care Team ([facility] st Contact Info) Description 07/14/2025 Telephone [facility] MEDICINE 230 [place] [address] Wendy Pang MD 230 [place] [address] pt1 Social History Tobacco Use Types Packs/Day [...] Y/N: Yes Provider name or facility name: [address] [place] [address] Escort needed: Y/N: No Do you have a wheelchair: Y/N: No If yes- Manual or electric: Visits: 3x documented in this encounter Plan of Treatment Upcoming Encounters Date Type Department Care Team (Late st Contact Info) Description 09/08/2025 10:00 AM EST Office Visit [facility] MEDICINE [address] [place] [address] Wendy Pang MD [address] [place] [phone] documented as of this encounter Visit Diagnoses Not on filedocumented in this encounter Additional Health Concerns Assessment Noted Time PHQ-9 Depression Total Score: 17 025 9:06 AM EDT documented as of this encounter Care Teams Concrete Smoother Relationship Specialty Start Date End Date Wendy Pang MD [address] [place] [phone] PCP - General Internal Medicine 02/23/23 documented as of this encounter
--- OUTSIDE RECORDS SUMMARY | 2025-08-09 15:37 | XMS_ITS | Encounter Summary ---
Author Organization [employer] Address 75 [facility] 7t [place] [address] Care Team Providers Care Picking Tech Name Role Phone Wendy Pang MD Primary Care Pro vider Reason for Visit * Reason Onset Date Comments Nurse Triage 03/11/2023 Encounter Details Date Type Department Care Team ([facility] st Contact Info) Description 03/11/2023 Telephone [facility] MEDICINE 230 [place] [address] Wendy Pang MD 230 [place] [address] Nurse Triage Social History Tobacco Use Types [...] 03/14/2023 11:06 AM EDT Triage call with [employer] Wrapper Stripper ID [id number]. Pt was triaged 03/11/23 and advised to come to [facility] to be seen but, didn't go. Pt reports doesn't want to go to [facility] because, I have too many issues Carol only want my doctor . Pt is offered 300pm apt with Dr. Villegas today but, reports no transportation. Advised Pt has 04/18/23 apt for transfer to Dr. Jama Vance and Pt reports my friend said thereare many apts open with Dr. Yun earlier than that and I want to go 03/25. . Meat Slicer looked at schedule for that day and no available apts for transfer Pt seen. Phone connection very poor. Call was dropped 3 times during this conversation. Advised Pt to come to [facility] today or tomorrow. Hours given opentill [...] still has severe pain. Please contact at [phone] * Telephone Encounter - Beryl Schuster RN - 03/11/2023 1:25 PM EDT Triage call with [employer] ID [id number] Pt reports shoulder, neck, middle to low back pain. Pt reports left foot almost gave out and Pt almost fell so Pt has someone walk with her all the time. Pt has suffered loss of mother and other family problems causing the increase of the pain. Pt is not finding effective pain relief and wants to see provider. Advised to come to [facility] today to be seen and Pt [...] accepted this outcome Please contact pt at [phone] Citizen Of [place] Speaker documented in this encounter Plan of Treatment Upcoming Encounters Date Type Department Care Team (Late st Contact Info) Description 09/08/2025 10:00 AM EST Office Visit [facility] MEDICINE [address] [place] [address] [phone] Wendy Pang MD [address] [place] [address] documented as of this encounter Visit Diagnoses Not on filedocumented in this encounter Care Teams Picking Tech Relationship Specialty Start Date End Date Wendy Pang MD [address] [place] [address] [phone] PCP - General Internal Medicine 02/23/23 documented as of this encounter
--- OUTSIDE RECORDS SUMMARY | 2025-08-09 15:37 | XMS_ITS | Encounter Summary ---
Author Organization [employer] Address [address] [facility] [address] 7t [place] [address] Care Team Providers Care Fruit Farmworker Name Role Phone Wendy Pang MD Primary Care Pro vider Encounter Details Date Type Department Care Team (Late st Contact Info) Description 03/25/2025 Orders Only [facility] MEDICINE 230 [place] [address] Wendy Pang MD 230 [place] [address] Social History Tobacco Use Types Packs/Day Years [...] is your housing situation today? I have shantardaha moreno 01/13/[address] you [...] Description 09/08/2025 10:00 AM EST Office Visit [facility] MEDICINE [address] [place] [phone] Wendy Pang MD [address] [place] [phone] documented as of this encounter Visit Diagnoses Not on filedocumented in this encounter Additional Health Concerns Assessment Noted Time PHQ-9 Depression Total Score: 17 025 9:06 AM EDT documented as of this encounter Care Teams Fruit Farmworker Relationship Specialty Start Date End Date Wendy Pang MD [address] [place] [phone] PCP - General Internal Medicine 02/23/23 documented as of this encounter
--- OUTSIDE RECORDS SUMMARY | 2025-08-09 15:37 | XMS_ITS | Encounter Summary ---
Author Organization [employer] [facility] Address [address] [place] [address] Care Team Providers Care Shear Operator Helper Name Role Phone Wendy Martell MD Primary Care Provide r Wendy Pang MD Primary Care Pro vider Encounter Details Date Type Department Care Team (Late Contact Info) Description 02/18/2023 Orders Only [facility] MEDICINE [address] [place] [address] Jordana Jose CNM [address] [place] [address] [phone] Social History Tobacco Use Types Packs/Day Years [...] 10:00 AM EST Office Visit [facility] MEDICINE [address] [place] [address] Wendy Pang MD [address] [place] [address] [phone] documented as of this encounter Procedures Procedure Name Priority Date/Time Associated Diagnosis Comments COLPOSCOPY Routine 01/31/2023 12:00 AM EDT documented in this encounter Results * Colposcopy (01/31/2023 12:00 AM EDT) us Ronni Bautista MD IN CLINIC/BEDSIDE ORDERABLES Fin al Result [facility] [address] [place] [address] [phone] documented in this encounter Visit Diagnoses Not on filedocumented in this encounter Care Teams Shear Operator Helper Relationship Specialty Start Date End Date Wendy Martell MD 230 [place] [address] PCP - General Internal Medicine 11/22/22 02/22/23 Wendy Pang MD 230 [place] [address] PCP - General Internal Medicine 02/23/23 documented as of this encounter
--- OUTSIDE RECORDS SUMMARY | 2025-08-09 15:37 | XMS_ITS | Encounter Summary ---
Author Organization [employer] Address [address] [facility] [address] 7t [place] [address] Care Team Providers Care Assembler Caterpillar Spider Name Role Phone Wendy Pang MD Primary Care Pro vider Encounter Details Date Type Department Care Team (Late st Contact Info) Description 03/25/2025 Orders Only [facility] [address] [place], [place] [phone] Provider, MD Mychal Social History Tobacco Use [...] 10:00 AM EST Office Visit [facility] [address] [place] [address] [phone] Wendy Pang MD [address] [place] [phone] documented as of this encounter Procedures Procedure [...] documented as of this encounter Care Teams Assembler Caterpillar Spider Relationship Specialty Start Date End Date Wendy Pang MD [address] [place] [phone] PCP - General Internal Medicine 02/23/23 documented as of this encounter
--- OUTSIDE RECORDS SUMMARY | 2025-08-09 15:37 | XMS_ITS | Encounter Summary ---
Author Organization [employer] Address 75 [facility] 7 [place] [address] Care Team Providers Care Pickle Processor Name Role Phone Wendy Pang MD Primary Care Pro vider Reason for Visit * Reason Onset Date Comments Durable Medical Equipment 06/23/2024 Prior Authorization 06/23/2024 Encounter Details Date Type Department Care Team (Late st Contact Info) Description 06/23/2024 Telephone [facility] MEDICINE 230 [place] [address] Wendy Pang MD 230 [place] [address] Durable Medical Equipment; Prior Authorization Social History [...] 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 Please contract pt at [phone]. (Arabic Speaker) documented in this encounter Plan of Treatment Upcoming Encounters Date Type Department Care Team (Late st Contact Info) Description 09/08/2025 10:00 AM EST Office Visit [facility] MED[facility]INE 230 [place] [address] Wendy Pang MD 230 [place] [address] documented as of this encounter Visit Diagnoses Not on filedocumented in this encounter Additional Health Concerns Assessment Noted Time PHQ-9 Depression Total Score: 10 024 1:15 PM EDT documented as of this encounter Care Teams Pickle Processor Relationship Specialty Start Date End Date Wendy Pang MD [address] [place] [address] [phone] PCP - General Internal Medicine 02/23/23 documented as of this encounter
--- OUTSIDE RECORDS SUMMARY | 2025-08-09 15:37 | XMS_ITS | Encounter Summary ---
Author Organization [employer] Address [address] [facility] [address] 7t [place] [address] Care Team Providers Care Administrative Support Coordinator Name Role Phone Wendy Pang MD Primary Care Pro vider Reason for Visit * Reason Comments Med Refill Encounter Details Date Type Department Care Team ([facility] st Contact Info) Description 01/07/2025 Refill [facility] MEDICINE 230 [place] [address] Wendy Pang MD 230 [place] [address] Type 2 diabetes mellitus without complication, without long-term current use of insulin (CMS/[facility]) Social History Tobacco Use Types Packs/Day Years [...] AM EST Office Visit [facility]INE [address] [place] [address] Wendy Pang MD 230 [place] [address] documented as of this encounter Visit Diagnoses Diagnosis Type 2 diabetes mellitus without complication, without long-term current use of insulin (HCC) documented in this encounter Additional Health Concerns Assessment Noted Time PHQ-9 Depression Total Score: 17 025 9:06 AM EDT documented as of this encounter Care Teams Administrative Support Coordinator Relationship Specialty Start Date End Date Wendy Pang MD [address] [place] [address] PCP - General Internal Medicine 02/23/23 documented as of this encounter
--- OUTSIDE RECORDS SUMMARY | 2025-08-09 15:37 | XMS_ITS | Encounter Summary ---
Author Organization [employer] Address 75 [facility] 7t [place] [address] Care Team Providers Care Business Analyst Name Role Phone Wendy Pang MD Primary Care Pro vider Reason for Visit * Reason Comments Med Refill Encounter Details Date Type Department Care Team ([facility] st Contact Info) Description 06/09/2025 Refill [facility] MEDICINE 230 [place] [address] Wendy Pang MD 230 [place] [address] Social History Tobacco Use Types Packs/Day Years [...] 09/08/2025 10:00 AM EST Office Visit [facility] MEDICINE [address] [place] [address] Wendy Pang MD [address] [place] [phone] documented as of this encounter Visit Diagnoses Not on filedocumented in this encounter Additional Health Concerns Assessment Noted Time PHQ-9 Depression Total Score: 17 025 9:06 AM EDT documented as of this encounter Care Teams Business Analyst Relationship Specialty Start Date End Date Wendy Pang MD [address] [place] [phone] PCP - General Internal Medicine 02/23/23 documented as of this encounter
--- OUTSIDE RECORDS SUMMARY | 2025-08-09 15:37 | XMS_ITS | Encounter Summary ---
Author Organization [employer] Address [address] [facility] [address] 7t [place] [address] Care Team Providers Care Concierge Manager Name Role Phone Wendy Pang MD Primary Care Pro vider Reason for Visit * Reason Comments Med Refill Encounter Details Date Type Department Care Team ([facility] st Contact Info) Description 10/26/2024 Refill [facility] 230 [place] [address] Patria Pappas ANP 230 [place] [address] Social History Tobacco Use Types Packs/Day Years [...] 10:00 AM EST Office Visit [facility] [address] [place] [address] Wendy Pang MD [address] [place] [phone] documented as of this encounter Visit Diagnoses Not on filedocumented in this encounter Additional Health Concerns Assessment Noted Time PHQ-9 Depression Total Score: 10 024 1:15 PM EDT documented as of this encounter Care Teams Concierge Manager Relationship Specialty Start Date End Date Wendy Pang MD [address] [place] [address] [phone] PCP - General Internal Medicine 02/23/23 documented as of this encounter
--- OUTSIDE RECORDS SUMMARY | 2025-08-09 15:37 | XMS_ITS | Encounter Summary ---
Author Organization [employer] Address 75 [facility] 7t [place] [address] Care Team Providers Care Dyer Assistant Name Role Phone Wendy Pang MD Primary Care Pro vider Reason for Visit * Reason Comments Med Refill Encounter Details Date Type Department Care Team ([facility] st Contact Info) Description 01/20/2025 Refill [facility] MEDICINE 230 [place] [address] Wendy Pang MD 230 [place] [address] Social History Tobacco Use Types Packs/Day Years [...] 09/08/2025 10:00 AM EST Office Visit [facility] MEDICINE [address] [place] [address] Wendy Pang MD [address] [place] [phone] documented as of this encounter Visit Diagnoses Not on filedocumented in this encounter Additional Health Concerns Assessment Noted Time PHQ-9 Depression Total Score: 17 025 9:06 AM EDT documented as of this encounter Care Teams Dyer Assistant Relationship Specialty Start Date End Date Wendy Pang MD [address] [place] [address] PCP - General Internal Medicine 02/23/23 documented as of this encounter
--- OUTSIDE RECORDS SUMMARY | 2025-08-09 15:37 | XMS_ITS | Encounter Summary ---
Author Organization [employer] Address [address] [facility] 7t [place] [address] Care Team Providers Care Wash Oil Cooler Operator Name Role Phone Wendy Pang MD Primary Care Pro vider Reason for Visit * Reason Comments Med Refill Encounter Details Date Type Department Care Team ([facility] st Contact Info) Description 03/15/[address] [facility] [address] [place] [address] Wendy Pang MD 230 [place] [address] Polyarthralgia Social History Tobacco Use Types Packs/Day [...] 09/08/2025 10:00 AM EST Office Visit [facility] [address] [place] [address] [phone] Wendy Pang MD [address] [place] [phone] documented as of this encounter Visit Diagnoses Diagnosis Polyarthralgia Pain in joint, multiple sites documented in this encounter Additional Health Concerns Assessment Noted Time PHQ-9 Depression Total Score: 17 025 9:06 AM EDT documented as of this encounter Care Teams Wash Oil Cooler Operator Relationship Specialty Start Date End Date Wendy Pang MD [address] [place] [address] [phone] PCP - General Internal Medicine 02/23/23 documented as of this encounter
--- OUTSIDE RECORDS SUMMARY | 2025-08-09 15:37 | XMS_ITS | Encounter Summary ---
Author Organization [employer] Address [address] [facility] [address] 7[address] [place] [address] Care Team Providers Care College Instructor Name Role Phone Wendy Pang MD Primary Care Pro vider Encounter Details Date Type Department Care Team (Late st Contact Info) Description 08/13/2024 Telephone [facility] 230 [place] [address] Wendy Pang MD 230 [place] [address] Social History Tobacco Use Types Packs/Day Years [...] Description 09/08/2025 10:00 AM EST Office Visit [facility] [address] [place] [address] Wendy Pang MD [address] [place] [phone] documented as of this encounter Visit Diagnoses Not on filedocumented in this encounter Additional Health Concerns Assessment Noted Time PHQ-9 Depression Total Score: 10 024 1:15 PM EDT documented as of this encounter Care Teams College Instructor Relationship Specialty Start Date End Date Wendy Pang MD [address] [place] [phone] PCP - General Internal Medicine 02/23/23 documented as of this encounter
--- OUTSIDE RECORDS SUMMARY | 2025-08-09 15:38 | XMS_ITS | Encounter Summary ---
Author Organization [employer] Address 75 [facility] 7 [place] [address] Care Team Providers Care Appeals Writer Name Role Phone Wendy Pang MD Primary Care Pro vider Reason for Visit * Reason Onset Date Comments pt1 12/14/2024 Encounter Details Date Type Department Care Team ([facility] st Contact Info) Description 12/14/2024 Telephone [facility] 230 [place] [address] Wendy Pang MD 230 [place] [address] pt1 Social History Tobacco Use Types Packs/Day [...] Y/N: Yes Provider name or facility name: [facility]. [address] [place] [phone] Escort needed: Y/N: Yes Do you have a wheelchair: Y/N: No If yes- Manual or electric: Visits: (5) ( x monthly,) 2- Patient calling requesting PT1 Home Address verified: Y/N: Yes Provider name or facility name: [address] [place] [phone] Escort needed: Y/N: Yes Do you have a wheelchair: Y/N: No If yes- Manual or electric: Visits: (5) ( x monthly,) documented in this encounter Plan of Treatment Upcoming Encounters Date Type Department Care Team ([facility] st Contact Info) Description 09/08/2025 10:00 AM EST Office Visit [facility] [address] [place] [address] [phone] Wendy Pang MD [address] [place], [place] [phone] documented as of this encounter Visit Diagnoses Not on filedocumented in this encounter Additional Health Concerns Assessment Noted Time PHQ-9 Depression Total Score: 17 11/20/ 025 9:06 AM EDT documented as of this encounter Care Teams Appeals Writer Relationship Specialty Start Date End Date Wendy Pang MD [address] [place] [phone] PCP - General Internal Medicine 02/23/23 documented as of this encounter
--- OUTSIDE RECORDS SUMMARY | 2025-08-09 15:38 | XMS_ITS | Encounter Summary ---
Author Organization [employer] Address [address] [facility] [address] 7[address] [place] [address] Care Team Providers Care Chief Customer Officer Name Role Phone Wendy Pang MD Primary Care Pro vider Encounter Details Date Type Department Care Team (Late st Contact Info) Description 09/29/2024 Orders Only [facility] [address] [place] [address] ProviderMychal MD Social History Tobacco Use Types [...] Upcoming Encounters Date Type Department Care Team ([facility] st Contact Info) Description 09/08/2025 10:00 AM EST Office Visit [facility] [address] [place] [address] [phone] Wendy Pang MD [address] [place] [address] [phone] documented as of this encounter Procedures Procedure [...] as of this encounter Care Teams Chief Customer Officer Relationship Specialty Start Date End Date Wendy Pang MD [address] [place] [phone] PCP - General Internal Medicine 02/23/23 documented as of this encounter
--- OUTSIDE RECORDS SUMMARY | 2025-08-09 15:38 | XMS_ITS | Encounter Summary ---
Author Organization [employer] Address [address] [facility] [address] 7[address] [place] [address] Care Team Providers Care Glass Furnace Operator Name Role Phone Wendy Pang MD Primary Care Pro vider Reason for Visit * Reason Comments Med Refill Encounter Details Date Type Department Care Team (Late st Contact Info) Description 02/18/2025 Refill [facility] 230 [place] [address] Lana Obrien NP [address] [place] [address] Unspecified Eustachian tube disorder, left ear Social [...] Description 09/08/2025 10:00 AM EST Office Visit [facility] [address] [place] [phone] Wendy Pang MD [address] [place] [phone] documented as of this encounter Visit Diagnoses Diagnosis Unspecified Eustachian tube disorder, left ear documented in this encounter Additional Health Concerns Assessment Noted Time PHQ-9 Depression Total Score: 17 025 9:06 AM EDT documented as of this encounter Care Teams Glass Furnace Operator Relationship Specialty Start Date End Date Wendy Pang MD [address] [place] [phone] PCP - General Internal Medicine 02/23/23 documented as of this encounter
== END 2025-08-09 12:26 | disposition home or self-care (01) ==
LOC: HO.XRAY 12:25
PROVIDERS: PCP Student in an Organized Health Care Education/Training Program; Visit Provider Student in an Organized Health Care Education/Training Program
DX: M79.672 Pain in left foot (principal); M79.671 Pain in right foot
CPT/HCPCS: 73630

== ENCOUNTER → 2025-08-09 12:35 | Outpatient (BNV) | payer MEDICAID, SELFPAY | PROVIDERS: PCP Student in an Organized Health Care Education/Training Program; Visit Provider Radiology Diagnostic Radiology | DX: M77.31 Calcaneal spur, right foot (principal); M77.32 Calcaneal spur, left foot | CPT/HCPCS: 73630 ==

== ENCOUNTER 2025-08-17 09:30 | Outpatient (AMB) | payer MEDICAID, SELFPAY ==
[2025-08-17 09:48] VITALS: BMI 34.2
--- NOTE | 2025-08-17 09:48 | A.OFFVIS_ITS ---
Vital Signs 08/17/25 09:48 Height 5 ft 4 in Weight 199 lb BMI 34.2 Intake Visit Reasons: f/u xrays; B/L foot pain Intake Note: Jocelin is a 55 year old female who presents today for a follow up on her bilateral foot pain. At her last visit X rays were ordered and Medrol dosepak was prescribed. She was advised to wear supportive shoe gear, avoid barefoot walking, and avoid tight fitting shoes. Patient reports she is still experiencing pain after long period of walking and she states the Medrol dosepak has helped her slightly however after 2 hours the pain returned. X rays results are all set in chart. Patient would like to discuss custom shoe insoles for her bilateral flat feet. Fish House Worker Required: Yes Fish House Worker Services: Fish House Worker Present Fish House Worker Name: patient relative Allergies No Known Allergies Allergy (Verified 08/17/25 09:49) HPI Comments Details: The patient is a 55 year old female presenting for a follow up visit for plantar fasciitis and arthritis to the feet. She states she continues to have pain to the plantar aspect of the feet as well as dorsal aspect. Patient states she completed the Medrol Dosepak but only experience minimal pain relief. She den ies any new pedal injuries. The patient inquires about obtaining shoes and inserts. She denies any other pedal concerns. She denies any new pedal injuries. [facility] Medical History (Updated 08/17/25 @ 10:00 by Roxana Bautista DPM) Pes planus of both feet Arthritis of both feet Other enthesopathy of unspecified foot and ankle Pelvic pain Cervical high risk HPV (human papillomavirus) test positive Vaginal discharge Postop check Fibromyalgia Osteoarthritis Polyarthralgia Post traumatic stress disorder Constipation Cervical disc disease Generalized anxiety disorder Mixed hyperlipidemia Type 2 diabetes mellitus HTN (hypertension) Tachycardia Sleep apnea LGSIL on Pap smear of cervix Surgical History Hx of tubal ligation Hx of section Social History Alcohol intake: never Patient Tobacco Use Status: Never used Tobacco Female Reproductive History Menstrual Age of Menarche: 12 Review of Systems Const Details: - Musculoskeletal: Reports continued bilateral foot pain, affecting the dorsal, plantar, and lateral aspects of the feet, as well as the posterior heel. - Neurological: Reports gait instability and a sensation of imbalance while walking. All systems reviewed & are unremarkable except as noted in HPI and below Physical Exam Vital Signs: BMI result Body Mass Index 34.2 Extrem Other: Bilateral lower extremity focused physical exam: Derm: No open lesions abrasions or wounds noted. No ecchymosis, erythema, or discoloration noted. No maceration or hyperkeratotic areas noted. No clinical signs of infection noted. Skin supple and turgor within normal limits. Vascular: DP/PT pulses palpable. Capillary refill time less than 3 seconds. Temperature gradient warm to warm. Pedal hair absent. No varicosities noted. Neuro: Protective sensation is grossly intact to light touch. MSK: Pain on palpation to the dorsal aspect of the foot, anterior of the ankle and posterior aspect of the heel bilaterally. Pain with range of motion of the ankle during plantar flexion and dorsiflexion. Range of motion of the forefoot and hindfoot within normal limits. No crepitus or fluctuance noted. Mildly antalgic gait unassisted noted. Pes planus foot type bilaterally. Results Reviewed Results Reviewed: Laboratory Tests 05/19/25 08:54 Random Glucose 85 AST 33 H ALT 34 H Podiatry read of bilateral foot x-ray (08/09/2025): Joint space narrowing of 1st MPJ and 1-5 IPJs. Plantar calcaneal heel spur noted and minimally to the posterior aspect of the calcaneus. Pes planus noted. Bilateral foot x-ray (08/09/2025): FINDINGS: RIGHT FOOT: Marginal osteophyte is noted involving the tibial plafond and. There are enthesophytes involving the calcaneus at the plantar fascia and Achilles tendon insertion. No other abnormalities are evident. LEFT FOOT: There is a moderate-sized enthesophyte at the plantar fascial attachment on calcaneus and minute enthesophyte at the Achilles tendon insertion. The appearance is similar to the prior. No other abnormalities are evident. IMPRESSION: Right foot: Calcaneal spurs Left foot: Calcaneal spurs. Assessment & Plan Assessment & Plan (1) Pes planus of both feet: Code(s): M21.41 - Flat foot [pes planus] (acquired), right foot; M21.42 - Flat foot [pes planus] (acquired), left foot Category: Medical (2) Arthritis of both feet: Code(s): M19.071 - Primary osteoarthritis, right ankle and foot; M19.072 - Primary osteoarthritis, left ankle and foot Category: Medical (3) Bilateral foot pain: Code(s): M79.671 - Pain in right foot; M79.672 - Pain in left foot Category: Medical (4) Other enthesopathy of unspecified foot and ankle: Code(s): M77.50 - Other enthesopathy of unspecified foot and ankle Category: Medical Plan Patient was informed and verbally consented to the use of an ambient scribe for clinic note documentation during this visit. I reviewed the foot X-rays with the patient, which showed no fractures but did reveal arthritic changes and bilateral plantar heel spurs. I explained that the bone spurs are associated with plantar fasciitis and indicate a long-standing inflammatory process from the ligament pulling on the bone. I also explained that her flat feet contribute to bone mobility, which can cause structural changes over time. We discussed that the prior Medrol Dosepak offered little help, so we will proceed with a longer-term anti-inflammatory like meloxicam. I have also provided a prescription for orthopedic shoes and inserts. I informed her that if these measures do not provide relief, future options include corticosteroid injections, noting that they can only be administered every 3-4 months to avoid tendon damage, and physical therapy. I clarified that surgery is not necessary at this time and we will follow up in two months. - A prescription for orthopedic shoes and inserts was provided. - Prescribed Meloxicam prn for pain. - Corticosteroid injections and physical therapy may be considered if symptoms persist after a few months of conservative treatment. - Surgical intervention is not indicated at this time. - Advised patient to wear supportive shoe gear and to avoid barefoot walking. RTC in 2 months. Medications: New meloxicam 15 mg PO DAILY 30 tabs 1RF M19.071 - Primary osteoarthritis, right ankle and foot, M19.072 - Primary osteoarthritis, left ankle and foot, M21.41 - Flat foot [pes planus] (acquired), right foot, M21.42 - Flat foot [pes planus] (acquired), left foot [Orthopedic shoes and inserts] As directed 1 ea 0RF M21.41 - Flat foot [pes planus] (acquired), right foot, M21.42 - Flat foot [pes planus] (acquired), left foot Discontinued methylprednisolone Discontinued Reason: Patient Completed Course PO PER PKG DIR 21 ea 0RF M79.671 - Pain in right foot, M79.672 - Pain in left foot Coding Level of Care Code Est Pt Level 4 (53247) Diagnoses Pes planus of both feet M21.41; M21.42 Arthritis of both feet M19.071; M19.072 Bilateral foot pain M79.671; M79.672 Other enthesopathy of unspecified foot and ankle M77.50 Time Spent (min) 30
--- OUTSIDE RECORDS SUMMARY | 2025-08-17 12:12 | XMS_ITS | Encounter Summary ---
Author Organization [employer] Address 75 [facility] 7t [place] [address] Care Team Providers Care Surgical Endoscopist Name Role Phone Wendy Pang MD Primary Care Pro vider Reason for Visit * Reason Comments Med Refill Encounter Details Date Type Department Care Team ([facility] st Contact Info) Description 06/09/2025 Refill [facility] [address] [place] [address] Wendy Pang MD [address] [place] [address] Social History Tobacco Use Types Packs/Day Years [...] 09/08/2025 10:00 AM EST Office Visit [facility] [address] [place] [phone] Wendy Pang MD [address] [place] [phone] documented as of this encounter Visit Diagnoses Not on filedocumented in this encounter Additional Health Concerns Assessment Noted Time PHQ-9 Depression Total Score: 17 025 9:06 AM EDT documented as of this encounter Care Teams Surgical Endoscopist Relationship Specialty Start Date End Date Wendy Pang MD [address] [place] [phone] PCP - General Internal Medicine 02/23/23 documented as of this encounter
--- OUTSIDE RECORDS SUMMARY | 2025-08-17 12:12 | XMS_ITS | Encounter Summary ---
Author Organization [employer] Address 75 [facility] 7 [place] [address] Care Team Providers Care Professor Of Chemistry Name Role Phone Wendy Pang MD Primary Care Pro vider Reason for Visit * Reason Onset Date Comments pt1 07/14/2025 Encounter Details Date Type Department Care Team ([facility] st Contact Info) Description 07/14/2025 Telephone [facility] [address] [place] [address] Wendy Pang MD [address] [place] [address] pt1 Social History Tobacco Use Types Packs/Day [...] Y/N: Yes Provider name or facility name: [address] [place] [address] Escort needed: Y/N: No Do you have a wheelchair: Y/N: No If yes- Manual or electric: Visits: 3x documented in this encounter Plan of Treatment Upcoming Encounters Date Type Department Care Team (Late st Contact Info) Description 09/08/2025 10:00 AM EST Office Visit [facility] [address] [place] [phone] Wendy Pang MD [address] [place] [phone] documented as of this encounter Visit Diagnoses Not on filedocumented in this encounter Additional Health Concerns Assessment Noted Time PHQ-9 Depression Total Score: 17 025 9:06 AM EDT documented as of this encounter Care Teams Professor Of Chemistry Relationship Specialty Start Date End Date Wendy Pang MD [address] [place] [phone] PCP - General Internal Medicine 02/23/23 documented as of this encounter
--- OUTSIDE RECORDS SUMMARY | 2025-08-17 12:12 | XMS_ITS | Clinical Summary ---
Author Organization [employer] Address [address] [place] [address] Care Team Providers Care Concrete Block Layer Name Role Phone Wendy Pang MD Primary [...] of migraines, [facility] Will start [...] (Eric Ruff) and has a therapist in [place] (agency unknown). Pt will continue current MH [...] (Eric Ruff) and has a therapist in [place] (agency unknown). Pt will continue current treatment [...] Department Care Team Description 08/09/2025 Orders Only [facility] External Provider, [facility] 07/14/2025 Patient Outreach [address] [address] Wendy Pang MD Care Coordination (W outreach for SDOH housing search-referral completed ) 07/14/[address] [address] Wendy Pang MD pt1 07/02/[address] [address] Wendy Pang MD 06/29/2025 4:20 PM EST Office Visit [facility] [address] [place] [address] Anita Oliva MD Mild intermittent asthma without complication (Primary Dx); Cough, unspecified type 06/25/[address] [address] Wendy Pang MD Call Back Request 06/18/2025 Orders Only [facility] [address] [place] [address] Wendy Pang MD 06/18/2025 Orders Only [address] [address] Wendy Pang MD Pulsatile tinnitus of both ears (Primary Dx) 06/17/2025 Results Follow-Up [address] TEMPORAL BONE WO CONTRAST 06/09/[address] [address] Wendy Pang MD Jimbo recall 06/09/[address] [address] Wendy Pang MD 06/07/[address] [address] Wendy Pang MD 06/02/2025 Refill [facility] [address] [place], [place] [phone] Wendy Pang MD PTSD (post-traumatic stress disorder); Polyarthralgia 05/28/2025 1:15 PM EDT Office Visit [address] [address] Wendy Pang MD Leg mass, left (Primary [...] Left foot pain 05/28/2025 Travel 05/27/2025 Telephone [facility] [address] [place] [address] Wendy Pang MD chart prep 05/21/2025 Patient Outreach [facility] [address] [place] [address] Wendy Pang MD Pre-visit Planning (SDOH was already completed) 05/19/2025 Results Follow-Up [facility] [address] [place] [address] Wendy Pang MD Comprehensive Metabolic Panel, Lipid Panel, Standard, Creatine Kinase, Total 05/19/2025 Orders Only [facility] External Provider, [facility] 05/19/2025 Travel 05/18/2025 Telephone [facility] [address] [place] [address] Wendy Pang MD from Last 3 Months [...] Description 09/08/2025 10:00 AM EST Office Visit [facility] [address] [place] [address] Wendy Pang MD [address] [place], [place] [phone] Health Maintenance Due Date Last Done Comments [...] Routine 05/19/2025 8:54 AM EDT Mixed hyperlipidemia POCT GLYCATED HEMOGLOBIN, TOTAL Routine 03/18/2025 11:54 [...] PM EST Narrative 08/09/2025 3:01 PM EST [address] [address] [place] Report Signed Patient: Jocelin Auguste Carlos#: [id number] : 1970 Acct:[id number] Age/Sex: 55 / F ADM Date: 08/09/25 Loc: KEYSHA Attending Dr: Roxana Bautista DPM Ordering Physician: Roxana Bautista DPM Date of Service: 08/09/25 Procedure(s): XR Foot Vasiliy 3V Accession Number(s): [id number] cc: Wendy Pang MD; Roxana Bautista DPM [...] by: Brice Pate MD 08/09/2025 02:58 PM [facility] Dictated By: Brice Pate MD Signed By: <Electronically signed by Brice Pate MD in OV> 08/09/25 1458 DD/ 1245 TD/TT: 08/09/25 1252 Veneer Joiner: Procedure Note Donotuseinterpreter, Image - 08/09/2025 [place] [address] XRay Report Signed Patient: Jo Auguste R#: [id number] : 1970Acct:[id number] Age/Sex: 55 / FADM Date: 08/09/25 Loc: KEYSHA Attending Dr: Roxana Bautista DPM Ordering Physician: Roxana Bautista DPM Date of Service: 08/09/25 Procedure(s): XR Foot Vasiliy 3V Accession Number(s): [id number] cc: Wendy Pang MD; Roxana Bautista DPM [...] by: Brice Pate MD 08/09/2025 02:58 PM [facility] Dictated By: Brice Pate MD Signed By: <Electronically signed by Brice Pate MD in OV> 08/09/25 1458 DD/ 1245 TD/TT: 08/09/25 1252 Veneer Joiner: [facility] External Provider IMG XR PROCEDURES Edited Result - Final * CT TEMPORAL BONE WO CONTRAST (06/17/2025 9:16 AM EDT) Anatomical Region Laterality Modality Body, Abdomen Computed Tomogra phy 06/17/2025 9:16 AM EDT Narrative 06/17/2025 10:24 AM EDT [address] [address] [address] Scan Report Signed Patient: Jocelin Auguste Carlos#: [id number] : 1970 Acct:[id number] Age/Sex: 55 / F ADM Date: 06/17/25 Loc: HO.CT Attending Dr: Wendy Vance MD Ordering Physician: Wendy Pang MD Date of Service: 06/17/25 Procedure(s): CT mastoid Accession Number(s): [id number] cc: Wendy Pang MD Report Number: [id number]: Total DLP = 148.00 mGy-cm Reason for [...] 06/17/25 1021 DD/ 0916 TD/TT: 06/17/25 0943 Veneer Joiner: Procedure Note Donotuseinterpreter, Image - 06/17/[address] [place] [address] [address] Scan Report Signed Patient: Jo Auguste R#: [id number] : 1970Acct:[id number] Age/Sex: 55 / FADM Date: 06/17/25 Loc: HO.CT Attending Dr: Wendy Vance MD Ordering Physician: Wendy Pang MD Date of Service: 06/17/25 Procedure(s): CT mastoid Accession Number(s): [id number] cc: Wendy Pang MD Report Number: [id number]: Total DLP = 148.00 mGy-cm Reason for [...] 06/17/25 1021 DD/ 0916 TD/TT: 06/17/25 0943 Veneer Joiner: Wendy Vance MD IMG CT PROCEDURES Edited Result - Final * XR Knee 3 Views Left (05/20/2025 10:58 AM EDT) Anatomical Region Laterality Modality Lower Extremities, Knee Left Radiogra phic Imaging 05/20/2025 10:5 8 AM EDT Narrative 05/20/2025 11:10 AM EDT [facility] [address] [place] [address] [address] [place] [address] XRay Report Signed Patient: Jocelin Auguste R#: [id number] : 1970 Acct:[id number] Age/Sex: 54 / F ADM Date: 05/20/25 Loc: GANESH Attending Dr: Cullen Hunter MD Ordering Physician: Cullen Hunter MD Date of Service: 05/20/25 Procedure(s): XR knee LT 3V Accession Number(s): [id number] cc: Wendy Pang MD; Cullen Hunter MD [...] 05/20/25 1107 DD/ 1058 TD/TT: 05/20/25 1100 Veneer Joiner: Procedure Note Donotuseinterpreter, Image - 05/20/2025 [facility] [address] [place] [address] XRay Report Signed Patient: Jo Auguste R#: [id number] : 1970Acct:[id number] Age/Sex: 54 / FADM Date: 05/20/25 Loc: HO.HOSX Attending Dr: Cullen Hunter MD Ordering Physician: Cullen Hunter MD Date of Service: 05/20/25 Procedure(s): XR knee LT 3V Accession Number(s): [id number] cc: Wendy Pang MD; Cullen Hunter MD [...] 05/20/25 1107 DD/ 1058 TD/TT: 05/20/25 1100 Veneer Joiner: [facility] External Provider IMG XR PROCEDURES Edited Result - Final * XR CERVICAL SPINE 4V (05/19/2025 9:02 AM EDT) Anatomical Region Laterality Modality Abdomen Radiographic Jeanine ging 05/19/2025 9:02 AM EDT Narrative 05/19/2025 9:42 AM EDT [facility] [address] [place] [address] XRay Report Signed Patient: Jocelin Auguste R#: [id number] : 1970 Acct:[id number] Age/Sex: 54 / F ADM Date: 05/19/25 Loc: HO.HHCX Attending Dr: Cullen Hunter MD Ordering Physician: Cullen Hunter MD Date of Service: 05/19/25 Procedure(s): XR cervical spine 4V Accession Number(s): [id number] cc: Wendy Pang MD; Clulen Hunter MD Reason for Exam: PAIN EXAMINATION: [...] in OV> 05/19/259[address] DD/ 1 TD/TT: 05/19/25902 Veneer Joiner: Procedure Note Donotuseinterpreter, Image - 05/19/[address] [address] XRay Report Signed Patient: Jo Auguste R#: [id number] : 1970Acct:[id number] Age/Sex: 54 / FADM Date: 05/19/25 Loc: HO.HHCX Attending Dr: Cullen Hunter MD Ordering Physician: Cullen Hunter MD Date of Service: 05/19/25 Procedure(s): XR cervical spine 4V Accession Number(s): [id number] cc: Wendy Pang MD; Cullen Hunter MD [...] 05/19/25 09 DD/ 09 TD/TT: 05/19/25 0903 Veneer Joiner: us [facility] External Provider IMG XR PROCEDURES Final Result * Creatine Kinase, Total (05/19/2025 8:54 AM EDT) Creatine Kinase Total 110 26 - 140 U/L [facility] Blood Venous blood specimen / Unknown 05/19/2025 8:54 AM EDT 05/19/2025 11:04 AM EDT us Wendy Vance MD LAB BLOOD ORDERAB LES Final Result [facility] [address] [place] [address] [phone] * (ABNORMAL) Lipid Panel, Standard (05/19/2025 8:54 AM EDT) Triglycerides 127 <150 mg/dL [facility] Comment:Desirable Triglyceri de: less than 150 mg/dLBorderline High Triglyceride 150-199 mg/dLHigh Triglyceride: 200-499 mg/dLVery High Triglyceride: greater than or equal to 5OO mg/dL Cholesterol 183 <200 mg/dL [facility] Comment:Desirable Cholestero l: less than 200 mg/dLBorderline High Cholesterol: 200-239 mg/dLHigh Cholesterol: greater than 239 mg/dL LDL Cholesterol Calculated 118(H) <100 mg/dL [facility] Comment:Desirable LDL: less than 100 mg/dLNear Optimal/Above Optimal LDL: 110- 129 mg/dLBorderline High LDL: 130-159 mg/dLHigh LDL: 160-189 mg/dLVery High LDL: greater than or equal to 190 mg/dL HDL Cholesterol 40(L) >40 mg/dL [facility] Comment:Desirable HDL: great er than 40 mg/dL Note: This HDL assay may give artificially low results in patients with liver disease. Blood Venous blood specimen / Unknown 05/19/2025 8:54 AM EDT 05/19/2025 11:04 AM EDT us Wendy Vance MD LAB BLOOD ORDERAB LES Final Result [facility] [address] [place] [address] [phone] * (ABNORMAL) Comprehensive Metabolic Panel (05/19/2025 8:54 AM EDT) Sodium 144 135 - 145 mmol/L [facility] Potassium 3.8 3.3 - 5.1 mmol/L [facility] Chloride 109(H) 96 - 108 mmol/L [facility] Carbon Dioxide 27 22 - 29 mmol/L [facility] Anion Gap 12 12 - 20 [facility] Urea Nitrogen (BUN) 21(H) 9 - 16 mg/dL [facility] Creatinine, Serum 0.66 0.5 - 1.4 mg/dL [facility] Estimated Glomerular Filt Rate >60 [facility] Comment:Chronic Kidney Disea se: Estimated GFR < 60 mL/min/1.84a1Ydwdtf Kidney Disease: Estimated GFR < 15 mL/min/1.73m2 Glucose 85 60 - 115 mg/dL [facility] Calcium 9.4 8.4 - 10.2 mg/dL [facility] Bilirubin, Total 0.2 0.0 - 1.0 mg/dL [facility] Aspartate Amino Transferase 33(H) 5 - 31 U/L [facility] Alanine Aminotransferase 34(H) 0 - 31 U/L [facility] Total Protein 7.9 6.5 - 8.0 g/dL [facility] Albumin Level 4.5 3.5 - 5.0 g/dL [facility] Alkaline Phosphatase 69 39 - 117 U/L [facility] Blood Venous blood specimen / Unknown 05/19/2025 8:54 AM EDT 05/19/2025 11:04 AM EDT Wendy Vance MD LAB BLOOD ORDERAB LES Final Result [facility] [address] [place] [address] [phone] * POCT HGB A1C (03/18/2025 11:54 AM EDT) Hemoglobin A1C 5.4 4.0 - 5.7 % QC Media Lot # [id number] Lot# Expiration Date Blood 03/18/2025 11:5 4 AM EDT Wendy Vanec MD POINT OF CARE PARIS T ENTER/EDIT ORDERABLES Final Result * BI Mammogram Screening Tomosynthesis Bilateral (03/04/2025 9:26 AM EDT) Anatomical Region Laterality Modality Breast Bilateral Mammography 03/04/2025 9:26 AM EDT Narrative 03/15/2025 10:34 AM EDT [facility] [address] [place] [address] Mammography Report Signed Patient: Jocelin Auguste R#: [id number] : 1970 Acct:[id number] Age/Sex: 54 / F ADM Date: 03/04/25 Loc: HO.MAMMO Attending Dr: Wendy Vance MD Ordering Physician: Wendy Pang MD Re sults: 1Negative Date of Service: 03/04/25 Follow Up: 1 Year From Orig ina Mammogram Procedure(s): MM tomosynthesis screening BI Accession Number(s): [id number] cc: Wendy Pang MD EXAMINATION: MM SCREENING [...] OV> 03/15/25 1031 DD/ 5 TD/TT: 03/04/25948 Veneer Joiner: Procedure Note Donotuseinterpreter, Image - 03/15/20[facility] [address] [place] [address] Mammography Report Signed Patient: Jo Auguste R#: [id number] : 1970Acct:[id number] Age/Sex: 54 / FADM Date: 03/04/25 Loc: HO.MAMMO Attending Dr: Wendy Vance MD Ordering Physician: Wendy Pang sults: 1Negative Date of Service: 03/04/25Follow Up: 1 Year From Orig inal Mammogram Procedure(s): MM tomosynthesis screening BI Accession Number(s): [id number] cc: Wendy Pang MD EXAMINATION: MM SCREENING [...] 03/15/25 1031 DD/ 0926 TD/TT: 03/04/25 0949 Veneer Joiner: Wendy Vance MD IMG BI PROCEDURES Final Result * HM PAP/HPV (01/04/2025 9:22 AM EDT) Only the most recent of2 resultswithin the time period is included. Historical Provider HEALTH MAINTENANCE Final Result * Albumin, Random Urine W/Creatinine (06/12/2024 11:40 AM EDT) Creatinine, Urine 195.62 mg/dL [facility] Microalbumin Urine 41.0 mg/L [facility] Microalbum Creatinine Ratio Ur 20.9 <30 ug/mg cr [facility] Comment:Albumin/Creatinine R atio Reference Ranges: Normal: < 30 ug/mg creatinine Microalbuminuria: 30 - 300 ug/mg creatinineClinical Albuminuria: > 300 ug/mg creatinine Urine (Urine, Random) 06/12/2024 11:40 AM EDT 06/12/2024 1:08 PM EDT Wendy Vance MD LAB URINE ORDERAB LES Final Result Performing Organization Address City/[facility]/ZIP Co de Phone Number [facility] [address] [place] [phone] * Hepatitis C Antibody with Reflex to HCV, RNA, Quantitative, Real-Time PCR (06/12/2024 11:39 AM EDT) Hepatitis C Antibody Nonreactive Nonreactive [facility] Comment:Antibodies to HCV no t detected; does not exclude early acuteHCV infection. Blood Venous blood specimen / Unknown 06/12/2024 11:39 AM EDT 06/12/2024 1:19 PM EDT Wendy Vance MD LAB BLOOD ORDERAB LES Final Result [facility] [address] [place] [address] [phone] * HIV-1/2 Antigen and Antibodies, Fourth Generation, with Reflexes (06/12/2024 11:39 AM EDT) HIV AB/AG Nonreactive Nonreactive [facility] Comment:HIV-1 p24 Ag and/or HIV-1/HIV-2 Ab not detected.A test result that is nonreactive does not exclude thepossibility of exposure to or infection with HIV-1 and/orHIV-2. Nonreactive results in this assay for individualswith prior exposure to HIV-1 and/or HIV-2 may be due toantigen and antibody levels that are below the limit ofdetection of this assay.[employer] HIV Ag/Ab Combo assay result andsupplemental assay [...] Final Result [facility] [address] [place] [address] [phone] * Colposcopy (02/11/2024 9:20 AM EDT) us Historical Provider IN CLINIC/BEDSIDE ORDERAB LES Edited Result - Final from Last 3 Months or Most Recently Relevant to Health Maintenance [facility] Care Teams Concrete Block Layer Relationship Specialty Start Date End Date Wendy Pang MD [address] [place] [address] PCP - General Internal Medicine 02/23/23
--- OUTSIDE RECORDS SUMMARY | 2025-08-17 12:12 | XMS_ITS | Encounter Summary ---
Author Organization [employer] Address [address] [place] [address] Care Team Providers Care Inspector Eyeglass Name Role Phone Wendy Pang MD Primary Care Pro vider Encounter Details Date Type Department Care Team (Late st Contact Info) Description 06/17/2025 Results Follow-Up [facility] [address] [place] [address] Wendy Pang MD [address] [place] [address] CT TEMPORAL BONE WO CONTRAST Social History [...] 10:00 AM EST Office Visit [facility] [address] [place] [address] Wendy Pang MD [address] [place] [address] documented as of this encounter Visit Diagnoses Not on filedocumented in this encounter Additional Health Concerns Assessment Noted Time PHQ-9 Depression Total Score: 17 11/20/ 025 9:06 AM EDT documented as of this encounter Care Teams Inspector Eyeglass Relationship Specialty Start Date End Date Wendy Pang MD [address] [place] [phone] PCP - General Internal Medicine 02/23/23 documented as of this encounter
--- OUTSIDE RECORDS SUMMARY | 2025-08-17 12:12 | XMS_ITS | Patient Health Record ---
Author Organization [facility] Address [address] [place] [address] Care Team Providers Care Senior Chemist Name Role Phone Michael Muller Primary Care [...] Status W/U Status Risk Notes Problem Cervicalgia (86360184) Cervicalgia (M54.2) Active confirmed Problem Morbid obesity (disorder) (545929185) Morbid (severe) obesity due to excess calories (E66.01) Active confirmed Problem Acquired hypothyroidism (007251734) Acquired hypothyroidism (E03.9) Active confirmed Problem Hyperlipidaemia (99710885) Hyperlipidemia, unspecified hyperlipidemia type (E78.5) Active confirmed Problem Type II diabetes mellitus without complication (424828831) Type 2 diabetes mellitus without complication, without long-term current use of insulin (E11.9) Active confirmed Problem Dysphagia (45359247) Dysphagia, unspecified type (R13.10) Active confirmed Problem Mixed anxiety and depressive disorder (654032030) Depression with anxiety (F41.8) Active confirmed Problem Sleep apnea (77573865) Sleep apnea, unspecified type (G47.30) Active confirmed Problem History of asthma (675399517) History of asthma (Z87.09) Active confirmed Problem Pruritic disorders (234438808) Ear itch (L29.9) Active confirmed Problem Sleep apnea (disorder) (82881593) History of sleep apnea (Z86.69) Active confirmed Problem Body mass index 40+ - severely obese (100452443) Body mass index [BMI] 40.0-44.9, adult (Z68.41) [...] End Date HUSKY A [address] [place], [place] [id number] Jocelin Talley Self - patient is the insured D[employer] Medicaid HP [address] [place] [id number] Jocelin Talley Self - patient is the insured Medical (General) History Surgical History Surgery Date(Month/Year) c section x 3 bilat tubal Hospitalization History Reason Date(Month/Year) see surgical
--- OUTSIDE RECORDS SUMMARY | 2025-08-17 12:13 | XMS_ITS | Encounter Summary ---
Author Organization [email or web address] Address [address] [facility] 7t [place] [address] Care Team Providers Care Solderer Assembler Name Role Phone Wendy Pang MD Primary Care Pro vider Reason for Visit * Reason Comments Med Refill Encounter Details Date Type Department Care Team ([facility] st Contact Info) Description 03/15/2025 Refill [facility] [address] [place] [address] Wendy Pang MD [address] [place] [address] Polyarthralgia Social History Tobacco Use Types Packs/Day [...] Description 09/08/2025 10:00 AM EST Office Visit [facility] [address] [place] [phone] Wendy Pang MD [address] [place] [address] documented as of this encounter Visit Diagnoses Diagnosis Polyarthralgia Pain in joint, multiple sites documented in this encounter Additional Health Concerns Assessment Noted Time PHQ-9 Depression Total Score: 17 025 9:06 AM EDT documented as of this encounter Care Teams Solderer Assembler Relationship Specialty Start Date End Date Wendy Pang MD [address] [place] [phone] PCP - General Internal Medicine 02/23/23 documented as of this encounter
--- OUTSIDE RECORDS SUMMARY | 2025-08-17 12:13 | XMS_ITS | Encounter Summary ---
Author Organization [employer] Address [address] [facility] 7t [place] [address] Care Team Providers Care Athletic Agent Name Role Phone Wendy Pang MD Primary Care Pro vider Reason for Visit * Reason Comments Med Refill Encounter Details Date Type Department Care Team ([facility] st Contact Info) Description 03/12/2025 Refill [facility] [address] [place] [address] Wendy Pang MD [address] [place] [address] Polyarthralgia Social History Tobacco Use Types Packs/Day [...] EST Office Visit [facility] [address] [place] [phone] Wendy Pang MD [address] [place] [address] documented as of this encounter Visit Diagnoses Diagnosis Polyarthralgia Pain in joint, multiple sites documented in this encounter Additional Health Concerns Assessment Noted Time PHQ-9 Depression Total Score: 17 025 9:06 AM EDT documented as of this encounter Care Teams Athletic Agent Relationship Specialty Start Date End Date Wendy Pang MD [address] [place] [address] PCP - General Internal Medicine 02/23/23 documented as of this encounter
--- OUTSIDE RECORDS SUMMARY | 2025-08-17 12:13 | XMS_ITS | Encounter Summary ---
Author Organization [employer] Address [address] [facility] 7 [place] [address] Care Team Providers Care Refrigerated Company Driver Name Role Phone Wendy Pang MD Primary Care Pro vider Reason for Visit * Reason Onset Date Comments Med Refill 07/13/2024 Encounter Details Date Type Department Care Team ([facility] st Contact Info) Description 07/13/2024 Telephone [facility] MEDICINE [address] [place] [address] Wendy Pang MD [address] [place] [address] Med Refill Social History Tobacco Use Types [...] to [facility] Pharmacy on 06/16/24 0.25 mg dose and 0.5 mg. * Telephone Encounter - Chad Kim - 07/13/2024 11:18 AM EST TC from pt requesting medication refill. Medications needing refill: Semaglutide-Weight Management (Wegovy) 0.25 MG/0.5ML solution auto-injector To be sent to: [facility] - [place], [place] - [address] [place] [address] documented in this encounter Plan of Treatment Upcoming Encounters Date Type Department Care Team ([facility] st Contact Info) Description 09/08/2025 10:00 AM EST Office Visit [facility] [address] [place] [address] Wendy Pang MD [address] [place] [address] documented as of this encounter Visit Diagnoses Not on filedocumented in this encounter Additional Health Concerns Assessment Noted Time PHQ-9 Depression Total Score: 10 024 1:15 PM EDT documented as of this encounter Care Teams Refrigerated Company Driver Relationship Specialty Start Date End Date Wendy Pang MD [address] [place] [phone] PCP - General Internal Medicine 02/23/23 documented as of this encounter
--- OUTSIDE RECORDS SUMMARY | 2025-08-17 12:13 | XMS_ITS | Encounter Summary ---
Author Organization [employer] Address [address] [address] [facility] [address] [place] [address] Care Team Providers Care Pharmacist'S Aide Name Role Phone Wendy Pang MD Primary Care Pro vider Encounter Details Date Type Department Care Team (Late st Contact Info) Description 09/29/2024 Orders Only [facility] [address] [place] [address] ProviderMychal MD Social History Tobacco Use Types [...] Upcoming Encounters Date Type Department Care Team ([facility] st Contact Info) Description 09/08/2025 10:00 AM EST Office Visit [facility] [address] [place] [address] [phone] Wendy Pang MD [address] [place] [phone] documented as of this encounter Procedures Procedure [...] documented as of this encounter Care Teams Pharmacist'S Aide Relationship Specialty Start Date End Date Wendy Pang MD [address] [place] [address] PCP - General Internal Medicine 02/23/23 documented as of this encounter
--- OUTSIDE RECORDS SUMMARY | 2025-08-17 12:13 | XMS_ITS | Encounter Summary ---
Author Organization [employer] Address [address] 7t [place] [address] Care Team Providers Care Baker Apprentice Name Role Phone Wendy Pang MD Primary Care Pro vider Reason for Visit * Reason Comments Med Refill Encounter Details Date Type Department Care Team ([facility] st Contact Info) Description 01/07/[address] [facility] MEDICINE [address] [place] [address] Wendy Pang MD 230 [place] [address] Type 2 diabetes mellitus without complication, without long-term current use of insulin (CMS/[facility]) Social History Tobacco Use Types Packs/Day [...] 10:00 AM EST Office Visit [facility] MEDICINE [address] [place] [address] Wendy Pang MD [address] [place] [address] documented as of this encounter Visit Diagnoses Diagnosis Type 2 diabetes mellitus without complication, without long-term current use of insulin (HCC) documented in this encounter Additional Health Concerns Assessment Noted Time PHQ-9 Depression Total Score: 17 025 9:06 AM EDT documented as of this encounter Care Teams Baker Apprentice Relationship Specialty Start Date End Date Wendy Pagn MD 230 [place] [address] PCP - General Internal Medicine 02/23/23 documented as of this encounter
--- OUTSIDE RECORDS SUMMARY | 2025-08-17 12:13 | XMS_ITS | Encounter Summary ---
Author Organization [employer] Address [address] [facility] 7 [place] [address] Care Team Providers Care Mysql Developer Name Role Phone Wendy Pang MD Primary Care Pro vider Reason for Visit * Reason Onset Date Comments pt1 12/14/2024 Encounter Details Date Type Department Care Team ([facility] st Contact Info) Description 12/14/[address] [facility] MEDICINE [address] [place] [address] Wendy Pang MD 230 [place] [address] pt1 Social History Tobacco Use Types Packs/Day [...] Y/N: Yes Provider name or facility name: [facility]. [address] [place] [address] Escort needed: Y/N: Yes Do you have a wheelchair: Y/N: No If yes- Manual or electric: Visits: (5) ( x monthly,) 2- Patient calling requesting PT1 Home Address verified: Y/N: Yes Provider name or facility name: [address] [place] [address] Escort needed: Y/N: Yes Do you have a wheelchair: Y/N: No If yes- Manual or electric: Visits: (5) ( x monthly,) documented in this encounter Plan of Treatment Upcoming Encounters Date Type Department Care Team ([facility] st Contact Info) Description 09/08/2025 10:00 AM EST Office Visit [facility] MEDICINE [address] [place] [address] [phone] Wendy Pang MD 230 [place], [place] [phone] documented as of this encounter Visit Diagnoses Not on filedocumented in this encounter Additional Health Concerns Assessment Noted Time PHQ-9 Depression Total Score: 17 11/20/ 025 9:06 AM EDT documented as of this encounter Care Teams Mysql Developer Relationship Specialty Start Date End Date Wendy Pang MD [address] [place] [phone] PCP - General Internal Medicine 02/23/23 documented as of this encounter
--- OUTSIDE RECORDS SUMMARY | 2025-08-17 12:13 | XMS_ITS | Encounter Summary ---
Author Organization [employer] Address [address] [facility] 7 [place] [address] Care Team Providers Care Bicycle Messenger Name Role Phone Wendy Pang MD Primary Care Pro vider Reason for Visit * Reason Onset Date Comments PT-1 08/04/2024 Encounter Details Date Type Department Care Team ([facility] st Contact Info) Description 08/04/2024 Telephone [facility] MEDICINE 230 [place] [address] Wendy Pang MD 230 [place] [address] PT-1 Social History Tobacco Use Types Packs/Day [...] Visit [facility] MEDICINE [address] [place] [address] Wendy Pang MD [address] [place] [address] documented as of this encounter Visit Diagnoses Not on filedocumented in this encounter Additional Health Concerns Assessment Noted Time PHQ-9 Depression Total Score: 10 024 1:15 PM EDT documented as of this encounter Care Teams Bicycle Messenger Relationship Specialty Start Date End Date Wendy Pang MD 230 [place] [address] PCP - General Internal Medicine 02/23/23 documented as of this encounter
--- OUTSIDE RECORDS SUMMARY | 2025-08-17 12:13 | XMS_ITS | Encounter Summary ---
Author Organization [employer] Address [address] [facility] 7t [place] [address] Care Team Providers Care Casting Repairer Name Role Phone Wendy Pang MD Primary Care Pro vider Reason for Visit * Reason Comments Med Refill Encounter Details Date Type Department Care Team ([facility] st Contact Info) Description 01/20/2025 Refill [facility] MEDICINE [address] [place] [address] Wendy Pang MD 230 [place] [address] Social History Tobacco Use Types Packs/Day Years [...] Description 09/08/2025 10:00 AM EST Office Visit [facility] MEDICINE [address] [place] [address] Wendy Pang MD [address] [place] [address] documented as of this encounter Visit Diagnoses Not on filedocumented in this encounter Additional Health Concerns Assessment Noted Time PHQ-9 Depression Total Score: 17 025 9:06 AM EDT documented as of this encounter Care Teams Casting Repairer Relationship Specialty Start Date End Date Wendy Pang MD [address] [place] [phone] PCP - General Internal Medicine 02/23/23 documented as of this encounter
--- OUTSIDE RECORDS SUMMARY | 2025-08-17 12:13 | XMS_ITS | Encounter Summary ---
Author Organization [facility] Address [address] [place] [address] Care Team Providers Care Clinic Scheduler Name Role Phone Wendy Martell MD Primary Care Provide r Wendy Pang MD Primary Care Pro vider Encounter Details Date Type Department Care Team (Late Contact Info) Description 02/18/2023 Orders Only [facility] MEDICINE [address] [place] [phone] Jordana Jose CNM [address] [place] [address] [phone] Social History Tobacco Use Types Packs/Day Years [...] Office Visit [facility] MEDICINE [address] [place] [address] Wendy Pang MD [address] [place] [address] [phone] documented as of this encounter Procedures Procedure Name Priority Date/Time Associated Diagnosis Comments COLPOSCOPY Routine 01/31/2023 12:00 AM EDT documented in this encounter Results * Colposcopy (01/31/2023 12:00 AM EDT) us Ronni Bautista MD IN CLINIC/BEDSIDE ORDERABLES Fin al Result [facility] [address] [place] [phone] documented in this encounter Visit Diagnoses Not on filedocumented in this encounter Care Teams Clinic Scheduler Relationship Specialty Start Date End Date Wendy Martell MD 230 [place] [address] PCP - General Internal Medicine 11/22/22 02/22/23 Wendy Pang MD 230 [place] [address] PCP - General Internal Medicine 02/23/23 documented as of this encounter
--- OUTSIDE RECORDS SUMMARY | 2025-08-17 12:13 | XMS_ITS | Encounter Summary ---
Author Organization [employer] Address [address] [facility] 7 [place] [address] Care Team Providers Care Regional Transportation Manager Name Role Phone Wendy Pang MD Primary Care Pro vider Reason for Visit * Reason Onset Date Comments Durable Medical Equipment 06/23/2024 Prior Authorization 06/23/2024 Encounter Details Date Type Department Care Team (Late st Contact Info) Description 06/23/2024 Telephone 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 Please contract pt at [phone]. (Korean Speaker) documented in this encounter Plan of Treatment Upcoming Encounters Date Type Department Care Team (Late st Contact Info) Description 09/08/2025 10:00 AM EST Office Visit [facility] MEDICINE [address] [place] [address] Wendy Pang MD 230 [place] [address] documented as of this encounter Visit Diagnoses Not on filedocumented in this encounter Additional Health Concerns Assessment Noted Time PHQ-9 Depression Total Score: 10 024 1:15 PM EDT documented as of this encounter Care Teams Regional Transportation Manager Relationship Specialty Start Date End Date Wendy Pang MD [address] [place] [address] [phone] PCP - General Internal Medicine 02/23/23 documented as of this encounter
--- OUTSIDE RECORDS SUMMARY | 2025-08-17 12:13 | XMS_ITS | Encounter Summary ---
Author Organization [employer] Address [address] [facility] 7t [place] [address] Care Team Providers Care Truck Unloader Name Role Phone Wendy Pang MD Primary Care Pro vider Reason for Visit * Reason Onset Date Comments Nurse Triage 03/11/2023 Encounter Details Date Type Department Care Team ([facility] st Contact Info) Description 03/11/2023 Telephone [facility] MEDICINE 230 [place] [address] Wendy Pang MD 230 [place] [address] Nurse Triage Social History Tobacco Use Types [...] 03/14/2023 11:06 AM EDT Triage call with [facility] [place] [id number]. Pt was triaged 03/11/23 and [address] to come to [facility] to be seen but, didn't go. Pt reports doesn't want to go to [facility] because, I have too many issues Carol only want my doctor . Pt is offered 300pm apt with Dr. Villegas today but, reports no transportation. Advised Pt has 04/18/23 apt for transfer to Dr. Jama Vance and Pt reports my friend said thereare many apts open with Dr. Yun earlier than that and I want to go 03/25. . Professor Of Nursing looked at schedule for that day and no available apts for transfer Pt seen. Phone connection very poor. Call was dropped 3 times during this conversation. Advised Pt to come to [facility] today or tomorrow. Hours given opentill [...] still has severe pain. Please contact at [phone] * Telephone Encounter - Beryl Schuster RN - 03/11/2023 1:25 PM EDT Triage call with [facility] [place] [id number] Pt reports shoulder, neck, middle to low back pain. Pt reports left foot almost gave out and Pt almost fell so Pt has someone walk with her all the time. Pt has suffered loss of mother and other family problems causing the increase of the pain. Pt is not finding effective pain relief and wants to see provider. Advised to come to [facility] today to be seen and Pt [...] accepted this outcome Please contact pt at [phone] Moldovan Speaker documented in this encounter Plan of Treatment Upcoming Encounters Date Type Department Care Team (Late st Contact Info) Description 09/08/2025 10:00 AM EST Office Visit [facility] MEDICINE [address] [place] [address] [phone] Wendy Pang MD [address] [place] [phone] documented as of this encounter Visit Diagnoses Not on filedocumented in this encounter Care Teams Truck Unloader Relationship Specialty Start Date End Date Wendy Pang MD [address] [place] [address] [phone] PCP - General Internal Medicine 02/23/23 documented as of this encounter
--- OUTSIDE RECORDS SUMMARY | 2025-08-17 12:13 | XMS_ITS | Encounter Summary ---
Author Organization [employer] Address [address] [facility] [address] 7t [place] [address] Care Team Providers Care Writer Technical Publications Name Role Phone Wendy Pang MD Primary Care Pro vider Encounter Details Date Type Department Care Team (Late st Contact Info) Description 03/25/2025 Orders Only [facility] PEDS [address] [place], [place] [phone] Provider, MD Mychal Social History Tobacco Use [...] AM EST Office Visit [facility] MEDICINE [address] [place] [address] [phone] Wendy Pang MD [address] [place] [address] documented as of this encounter Procedures Procedure [...] documented as of this encounter Care Teams Writer Technical Publications Relationship Specialty Start Date End Date Wendy Pang MD [address] [place] [address] PCP - General Internal Medicine 02/23/23 documented as of this encounter
--- OUTSIDE RECORDS SUMMARY | 2025-08-17 12:13 | XMS_ITS | Encounter Summary ---
Author Organization [employer] Address [address] [facility] [address] 7t [place] [address] Care Team Providers Care Bulb Packer Name Role Phone Wendy Pang MD Primary Care Pro vider Encounter Details Date Type Department Care Team (Late st Contact Info) Description 03/25/2025 Orders Only [facility] MEDICINE [address] [place] [address] Wendy Pang MD 230 [place] [address] Social History Tobacco Use Types Packs/Day Years [...] Office Visit [facility] MEDICINE [address] [place] [address] Wendy Pang MD [address] [place] [address] documented as of this encounter Visit Diagnoses Not on filedocumented in this encounter Additional Health Concerns Assessment Noted Time PHQ-9 Depression Total Score: 17 025 9:06 AM EDT documented as of this encounter Care Teams Bulb Packer Relationship Specialty Start Date End Date Wendy Pang MD [address] [place] [phone] PCP - General Internal Medicine 02/23/23 documented as of this encounter
--- OUTSIDE RECORDS SUMMARY | 2025-08-17 12:13 | XMS_ITS | Encounter Summary ---
Author Organization [employer] Address [address] [facility] 7 [place] [address] Care Team Providers Care Quenching Machine Operator Name Role Phone Wendy Pang MD Primary Care Pro vider Reason for Visit * Reason Onset Date Comments Accamodation Letter 06/25/2024 Encounter Details Date Type Department Care Team ([facility] st Contact Info) Description 06/25/2024 Telephone [facility] MEDICINE 230 [place] [address] Wendy Pang MD 230 [place] [address] Accamodation Letter Social History Tobacco Use Types [...] any questions you can contact pt at [phone]. (Malawian Speaker) documented in this encounter Plan of Treatment Upcoming Encounters Date Type Department Care Team (Late st Contact Info) Description 09/08/2025 10:00 AM EST Office Visit [facility] MEDICINE 230 [place], [place] [phone] Wendy Pang MD 230 [place], [place] [phone] documented as of this encounter Visit Diagnoses Not on filedocumented in this encounter Additional Health Concerns Assessment Noted Time PHQ-9 Depression Total Score: 10 024 1:15 PM EDT documented as of this encounter Care Teams Quenching Machine Operator Relationship Specialty Start Date End Date Wendy Pang MD 230 [place], [place] [phone] PCP - General Internal Medicine 02/23/23 documented as of this encounter
--- OUTSIDE RECORDS SUMMARY | 2025-08-17 12:13 | XMS_ITS | Encounter Summary ---
Author Organization [employer] Address [address] [facility] [address] 7t [place] [address] Care Team Providers Care Florist Name Role Phone Wendy Pang MD Primary Care Pro vider Reason for Visit * Reason Comments Med Refill Encounter Details Date Type Department Care Team ([facility] st Contact Info) Description 10/26/2024 Refill [facility] MEDICINE 230 [place] [address] Patria Pappas ANP 230 [place] [address] Social History Tobacco Use Types Packs/Day Years [...] AM EST Office Visit [facility] MEDICINE [address] [place] [address] Wendy Pang MD [address] [place] [address] documented as of this encounter Visit Diagnoses Not on filedocumented in this encounter Additional Health Concerns Assessment Noted Time PHQ-9 Depression Total Score: 10 024 1:15 PM EDT documented as of this encounter Care Teams Florist Relationship Specialty Start Date End Date Wendy Pang MD [address] [place] [address] [phone] PCP - General Internal Medicine 02/23/23 documented as of this encounter
--- OUTSIDE RECORDS SUMMARY | 2025-08-17 12:13 | XMS_ITS | Encounter Summary ---
Author Organization [employer] Address [address] [facility] [address] 7t [place] [address] Care Team Providers Care English Composition Teacher Name Role Phone Wendy Pang MD Primary Care Pro vider Encounter Details Date Type Department Care Team (Late st Contact Info) Description 08/13/2024 Telephone [facility] MEDICINE 230 [place] [address] Wendy Pang MD 230 [place] [address] Social History Tobacco Use Types Packs/Day Years [...] Description 09/08/2025 10:00 AM EST Office Visit [facility] MEDICINE [address] [place] [address] Wendy Pang MD [address] [place] [address] documented as of this encounter Visit Diagnoses Not on filedocumented in this encounter Additional Health Concerns Assessment Noted Time PHQ-9 Depression Total Score: 10 024 1:15 PM EDT documented as of this encounter Care Teams English Composition Teacher Relationship Specialty Start Date End Date Wendy Pang MD [address] [place] [phone] PCP - General Internal Medicine 02/23/23 documented as of this encounter
--- OUTSIDE RECORDS SUMMARY | 2025-08-17 12:13 | XMS_ITS | Encounter Summary ---
Author Organization [employer] Address [address] [facility] [address] 7t [place] [address] Care Team Providers Care Ballistics Teacher Name Role Phone Wendy Pang MD Primary Care Pro vider Reason for Visit * Reason Comments Med Refill Encounter Details Date Type Department Care Team (Late st Contact Info) Description 02/18/2025 Refill [facility] 230 [place] [address] Lana Obrien NP 230 [place] [address] Unspecified Eustachian tube disorder, left ear Social [...] Description 09/08/2025 10:00 AM EST Office Visit [facility] MEDICINE [address] [place] [address] Wendy Pang MD [address] [place] [phone] documented as of this encounter Visit Diagnoses Diagnosis Unspecified Eustachian tube disorder, left ear documented in this encounter Additional Health Concerns Assessment Noted Time PHQ-9 Depression Total Score: 17 025 9:06 AM EDT documented as of this encounter Care Teams Ballistics Teacher Relationship Specialty Start Date End Date Wendy Pang MD [address] [place] [phone] PCP - General Internal Medicine 02/23/23 documented as of this encounter
== END 2025-08-17 10:16 | disposition home or self-care (01) ==
LOC: HO.HPODS 09:30
PROVIDERS: PCP Student in an Organized Health Care Education/Training Program; Visit Provider Student in an Organized Health Care Education/Training Program
DX: M21.41 Flat foot [pes planus] (acquired), right foot (principal); M21.42 Flat foot [pes planus] (acquired), left foot; M19.071 Primary osteoarthritis, right ankle and foot; M19.072 Primary osteoarthritis, left ankle and foot; M79.671 Pain in right foot; M79.672 Pain in left foot; M77.50 Other enthesopathy of unspecified foot and ankle
CPT/HCPCS: 99214

== ENCOUNTER → 2025-08-17 09:30 | Outpatient (BNVA) | payer MEDICAID, SELFPAY | PROVIDERS: PCP Student in an Organized Health Care Education/Training Program; Visit Provider Student in an Organized Health Care Education/Training Program | DX: M19.071 Primary osteoarthritis, right ankle and foot (principal); M19.072 Primary osteoarthritis, left ankle and foot; M77.50 Other enthesopathy of unspecified foot and ankle; M21.41 Flat foot [pes planus] (acquired), right foot; M21.42 Flat foot [pes planus] (acquired), left foot | CPT/HCPCS: 99212 ==